=== PATIENT | female | born 1935 | race Caucasian/White ===

== ENCOUNTER 2023-10-08 19:15 | Inpatient (IN) | payer MEDICARE, BC ==
[2023-10-08] MEDS ORDERED: IPRATROPIUM-ALBUTEROL 3 ML NEB INHALATION STA ×2 (19:50→20:53)
--- NOTE | 2023-10-08 20:26 | ED ---
SOB HPI - General Chief Complaint: Shortness of Breath Stated Complaint: SOB Time Seen by Provider: 10/08/23 19:17 Source: patient, EMS, RN notes reviewed, old records reviewed, Caregiver Mode of arrival: EMS Limitations: no limitations - History of Present Illness Initial Comments: This is a 87-year-old female to the emergency department for evaluation of severe shortness of breath, difficulty breathing with recent diagnosis of pneumonia. Patient does have underlying arthritis distress respiratory disease and shortness of breath CHF MD Complaint: shortness of breath, cough, anxiety (known pneumonia) -: days(s) Severity: severe Severity scale (1-10): 10 Quality: aching Consistency: constant Improves With: nothing Known History Of: COPD, congestive heart failure, recurrent pneumonia Context: recent URI, anxiety, recent illness Associated Symptoms: denies other symptoms, cough - Related Data Home Medications Medication Instructions Recorded Confirmed Aspirin EC [Ecotrin Low Dose] 81 mg PO DAILY 10/08/23 10/08/23 Azithromycin [Zithromax Z Pack] See Taper PO DIRECTED 10/08/23 10/08/23 Calcium Carbonate [Tums] 500 mg PO BID 10/08/23 10/08/23 DULoxetine HCL [Cymbalta] 60 mg PO BID 10/08/23 10/08/23 Docusate [Colace] 100 mg PO Q12H 10/08/23 10/08/23 Ergocalciferol (Vitamin D2) 1,250 mcg PO APPIAH 10/08/23 10/08/23 [Drisdol (50,000 Iu)] Ferrous Sulfate [Feosol] 325 mg PO SUMOWEFR@2100 10/08/23 10/08/23 HYDROcodone/APAP 5-325MG [[place] 1 tab PO Q4HR PRN 10/08/23 10/08/23 5-325] INSULIN ASPART (NovoLOG) [NovoLOG See Protocol SQ ACHS 10/08/23 10/08/23 (formulary)] Insulin Detemir [Levemir Flexpen] 20 units SQ DAILY 10/08/23 10/08/23 Lidocaine 5% Patch [Lidoderm] 1 patch TOPICAL DAILY 10/08/23 10/08/23 Losartan [Cozaar] 50 mg PO DAILY 10/08/23 10/08/23 Pantoprazole [Protonix] 40 mg PO DAILY 10/08/23 10/08/23 carvediloL [Coreg] 25 mg PO BID PRN 10/08/23 10/08/23 cefTRIAXone [Rocephin] 1 gm IVPB DAILY 10/08/23 10/08/23 cloNIDine HCL 0.2 mg PO Q8H PRN 10/08/23 10/08/23 hydrALAZINE HCL [Apresoline] 50 mg PO Q8H 10/08/23 10/08/23 polyethylene glycoL 3350 [Miralax] 17 gm PO DAILY 10/08/23 10/08/23 rOPINIRole HCL [Requip] 4 mg PO Q12H 10/08/23 10/08/23 Allergies Allergy/AdvReac Type Severity Reaction Status Date / Time No Known Allergies Allergy Verified 10/08/23 21:45 Review of Systems ROS Statement: Those systems with pertinent positive or pertinent negative responses have been documented in the HPI. ROS Other: All systems not noted in ROS Statement are negative. Past Medical History History of Any Multi-Drug Resistant Organisms: MRSA Smoking Status: Never smoker Past Alcohol Use History: None Reported Past Drug Use History: None Reported General Exam Limitations: no limitations General appearance: alert, anxious, in distress Head exam: Present: atraumatic, normocephalic, normal inspection Eye exam: Present: normal appearance, PERRL, EOMI. Absent: scleral icterus, conjunctival injection, periorbital swelling ENT exam: Present: normal exam, mucous membranes moist Neck exam: Present: normal inspection. Absent: tenderness, meningismus, lymphadenopathy Respiratory exam: Present: respiratory distress, wheezes, accessory muscle use, decreased breath sounds, prolonged expiratory. Absent: rales, rhonchi, stridor Cardiovascular Exam: Present: regular rate, normal rhythm, normal heart sounds. Absent: systolic murmur, diastolic murmur, rubs, gallop, clicks GI/Abdominal exam: Present: soft, normal bowel sounds. Absent: distended, tenderness, guarding, rebound, rigid Extremities exam: Present: normal inspection, full ROM, normal capillary refill. Absent: tenderness, pedal edema, joint swelling, calf tenderness Back exam: Present: normal inspection Neurological exam: Present: alert, oriented X3, CN II-XII intact Psychiatric exam: Present: normal affect, normal mood Skin exam: Present: warm, dry, intact, normal color. Absent: rash Course Vital Signs 10/08/23 10/08/23 10/08/23 19:23 19:27 21:00 Temperature 97.8 F 98.3 F Pulse Rate 95 63 Pulse Rate [ Bilateral Sitting Pulse Oximetery] Respiratory 29 H 28 H 19 Rate Blood Pressure 184/93 210/94 Blood Pressure [Left Arm Sitting] O2 Sat by Pulse 98 100 Oximetry 10/08/23 10/08/23 10/08/23 22:05 22:23 22:43 Temperature 98.2 F Pulse Rate 69 63 67 Pulse Rate [ Bilateral Sitting Pulse Oximetery] Respiratory 22 Rate Blood Pressure 200/101 Blood Pressure [Left Arm Sitting] O2 Sat by Pulse 100 Oximetry 10/08/23 10/08/23 10/08/23 22:46 22:47 22:53 Temperature 98.2 F Pulse Rate 61 67 Pulse Rate [ Bilateral Sitting Pulse Oximetery] Respiratory 22 22 Rate Blood Pressure 204/99 211/97 Blood Pressure 205/104 [Left Arm Sitting] O2 Sat by Pulse 99 100 100 Oximetry 10/08/23 10/09/23 10/09/23 23:00 00:00 00:08 Temperature Pulse Rate 67 Pulse Rate [ 68 67 Bilateral Sitting Pulse Oximetery] Respiratory 20 20 20 Rate Blood Pressure 177/93 Blood Pressure 217/105 [Left Arm Sitting] O2 Sat by Pulse 99 99 Oximetry 10/09/23 10/09/23 10/09/23 02:00 03:00 04:00 Temperature Pulse Rate 63 62 60 Pulse Rate [ Bilateral Sitting Pulse Oximetery] Respiratory 20 20 20 Rate Blood Pressure 139/98 139/98 147/77 Blood Pressure [Left Arm Sitting] O2 Sat by Pulse 99 99 99 Oximetry 10/09/23 10/09/23 10/09/23 05:00 06:00 07:00 Temperature Pulse Rate 64 65 64 Pulse Rate [ Bilateral Sitting Pulse Oximetery] Respiratory 20 20 20 Rate Blood Pressure 158/94 158/92 170/83 Blood Pressure [Left Arm Sitting] O2 Sat by Pulse 99 99 99 Oximetry 10/09/23 10/09/23 10/09/23 07:48 07:52 07:58 Temperature Pulse Rate 87 89 Pulse Rate [ Bilateral Sitting Pulse Oximetery] Respiratory Rate Blood Pressure Blood Pressure [Left Arm Sitting] O2 Sat by Pulse 98 Oximetry 10/09/23 10/09/23 10/09/23 08:47 09:49 12:45 Temperature Pulse Rate 76 78 Pulse Rate [ 67 Bilateral Sitting Pulse Oximetery] Respiratory 18 18 16 Rate Blood Pressure 182/92 149/87 Blood Pressure 121/84 [Left Arm Sitting] O2 Sat by Pulse 99 99 99 Oximetry 10/09/23 19:39 Temperature Pulse Rate Pulse Rate [ 63 Bilateral Sitting Pulse Oximetery] Respiratory 16 Rate Blood Pressure Blood Pressure 151/86 [Left Arm Sitting] O2 Sat by Pulse 99 Oximetry - Reevaluation(s) Reevaluation #1: 10/08/23 20:58 Medical record is reviewed Reevaluation #2: 10/08/23 20:59 Patient symptoms unchanged Reevaluation #3: 10/08/23 20:59 patient informed results and questions answered Reevaluation #4: 10/08/23 20:59 Was pt. sent in by a medical professional or institution (, PA, DIRECTOR OF CLOUD SERVICES, urgent care, hospital, or senior living...) When possible be specific @ -no Did you speak to anyone other than the patient for history (EMS, parent, family, police, friend...)? What history was obtained from this source @ -no Did you review nursing and triage notes (agree or disagree)? Why? @ -agree Are old charts reviewed (outside hosp., previous admission, EMS record, old EKG, old radiological studies, urgent care reports/EKG's, senior living records)? Report findings @ -yes Differential Diagnosis (chest pain, altered mental status, abdominal pain women, abdominal pain men, vaginal bleeding, weakness, fever, dyspnea, syncope, headache, dizziness, GI bleed, back pain, seizure, CVA, palpatations, mental health, musculoskeletal)? @ -prior EKG interpreted by me (3pts min.). @ -yes X-rays interpreted by me (1pt min.). @ -yes CHF and pneumonia CT interpreted by me (1pt min.). @ -no U/S interpreted by me (1pt. min.). @ -no What testing was considered but not performed or refused? (CT, X-rays, U/S, labs)? Why? @ -none What meds were considered but not given or refused? Why? @ -none Did you discuss the management of the patient with other professionals (professionals i.e. , PA, DIRECTOR OF CLOUD SERVICES, lab, RT, psych nurse, criminal justice social worker, nurse behavioral health care, teacher, chief human resources officer, window caser)? Give summary @ -no Was smoking cessation discussed for >3mins.? @ -no Was critical care preformed (if so, how long)? @ -no Were there social determinants of health that impacted care today? How? (Homelessness, low income, unemployed, alcoholism, drug addiction, transportation, low edu. Level, literacy, decrease access to med. care, longterm, rehab)? @ -none Was there de-escalation of care discussed even if they declined (Discuss DNR or withdrawal of care, Hospice)? DNR status @ -no What co-morbidities impacted this encounter? (DM, HTN, Smoking, COPD, CAD, Cancer, CVA, ARF, Chemo, Hep., AIDS, mental health diagnosis, sleep apnea, morbi d obesity)? @ -none Was patient admitted / discharged? Hospital course, mention meds given and rout e, prescriptions, significant lab abnormalities, going to OR and other pertinent info. @ - 87 female to the emergency department for evaluation today. Patient will be admitted for pneumonia CHF COPD hypoxia and respiratory failure Admitted Undiagnosed new problem with uncertain prognosis? @ -no Drug Therapy requiring intensive monitoring for toxicity (Heparin, Nitro, Insulin, Cardizem)? @ -no Were any procedures done? @ -no Diagnosis/symptom? @ -Hypoxia CHF and respiratory failure with pneumonia Acute, or Chronic, or Acute on Chronic? @ -Acute Uncomplicated (without systemic symptoms) or Complicated (systemic symptoms)? @ -Complicated Side effects of treatment? @ -no Exacerbation, Progression, or Severe Exacerbation? @ -exacerbation Poses a threat to life or bodily function? How? (Chest pain, [place], [place], pneumonia, PE, COPD, DKA, ARF, appy, cholecystitis, CVA, Diverticulitis, Homicidal, Suicidal, threat to staff... and all critical care pts) @ -yes extremes of age Reevaluation #5: 10/08/23 20:59 Differential Dyspnea: Coronary syndrome, arrhythmia, tamponade, asthma, COPD, pulmonary embolism, pneumonia, pneumothorax, pulmonary effusion, anaphylaxis, diabetic ketoacidosis, flailed chest, pulmonary contusion, diaphragmatic rupture, anemia, neuromuscular, this is not meant to be an all-inclusive list. - Consultations Consultation #1: Spoke with [facility] were agrees to admit this patient Medical Decision Making - Medical Decision Making 87 female DF for evaluation today. Patient will be admitted for pneumonia CHF COPD hypoxia and respiratory failure - Lab Data Result diagrams: 10/17/23 06:31 10/17/23 06:31 Lab Results 10/08/23 10/08/23 10/08/23 Range/Units 19:55 19:55 19:55 WBC 6.3 (3.8-10.6) k/uL RBC 3.98 (3.80-5.40) m/uL Hgb 12.5 (11.4-16.0) gm/dL Hct 40.7 (34.0-46.0) % MCV 102.4 H (80.0-100.0) fL MCH 31.5 (25.0-35.0) pg MCHC 30.7 L (31.0-37.0) g/dL RDW 15.1 (11.5-15.5) % Plt Count 143 L (150-450) k/uL MPV 9.2 Neutrophils % 79 % Lymphocytes % 10 % Monocytes % 6 % Eosinophils % 4 % Basophils % 1 % Neutrophils # 4.9 (1.3-7.7) k/uL Lymphocytes # 0.6 L (1.0-4.8) k/uL Monocytes # 0.3 (0-1.0) k/uL Eosinophils # 0.3 (0-0.7) k/uL Basophils # 0.0 (0-0.2) k/uL Hypochromasia Slight Macrocytosis Slight PT 11.0 (10.0-12.5) sec INR 1.0 (<1.2) APTT 25.2 (22.0-30.0) sec Sodium 142 (137-145) mmol/L Potassium 4.0 (3.5-5.1) mmol/L Chloride 106 (98-107) mmol/L Carbon Dioxide 28 (22-30) mmol/L Anion Gap 8 mmol/L BUN 34 H (7-17) mg/dL Creatinine 0.87 (0.52-1.04) mg/dL Est GFR (CKD-EPI)AfAm 69 (>60 ml/min/1.73 sqM) Est GFR (CKD-EPI)NonAf 60 (>60 ml/min/1.73 sqM) Glucose 98 (74-99) mg/dL Plasma Lactic Acid Luis M (0.7-2.0) mmol/L Calcium 9.0 (8.4-10.2) mg/dL Total Bilirubin 0.5 (0.2-1.3) mg/dL AST 52 H (14-36) U/L ALT 71 H (4-34) U/L Alkaline Phosphatase 209 H (38-126) U/L Troponin I (0.000-0.034) ng/mL Total Protein 6.5 (6.3-8.2) g/dL Albumin 3.6 (3.5-5.0) g/dL 10/08/23 10/08/23 Range/Units 19:55 19:55 WBC (3.8-10.6) k/uL RBC (3.80-5.40) m/uL Hgb (11.4-16.0) gm/dL Hct (34.0-46.0) % MCV (80.0-100.0) fL MCH (25.0-35.0) pg MCHC (31.0-37.0) g/dL RDW (11.5-15.5) % Plt Count (150-450) k/uL MPV Neutrophils % % Lymphocytes % % Monocytes % % Eosinophils % % Basophils % % Neutrophils # (1.3-7.7) k/uL Lymphocytes # (1.0-4.8) k/uL Monocytes # (0-1.0) k/uL Eosinophils # (0-0.7) k/uL Basophils # (0-0.2) k/uL Hypochromasia Macrocytosis PT (10.0-12.5) sec INR (<1.2) APTT (22.0-30.0) sec Sodium (137-145) mmol/L Potassium (3.5-5.1) mmol/L Chloride (98-107) mmol/L Carbon Dioxide (22-30) mmol/L Anion Gap mmol/L BUN (7-17) mg/dL Creatinine (0.52-1.04) mg/dL Est GFR (CKD-EPI)AfAm (>60 ml/min/1.73 sqM) Est GFR (CKD-EPI)NonAf (>60 ml/min/1.73 sqM) Glucose (74-99) mg/dL Plasma Lactic Acid Luis M 0.9 (0.7-2.0) mmol/L Calcium (8.4-10.2) mg/dL Total Bilirubin (0.2-1.3) mg/dL AST (14-36) U/L ALT (4-34) U/L Alkaline Phosphatase (38-126) U/L Troponin I <0.012 (0.000-0.034) ng/mL Total Protein (6.3-8.2) g/dL Albumin (3.5-5.0) g/dL - EKG Data -: EKG Interpreted by Me (EKG is sinus 64 WI 158 QRS 105 QTc 408) - Radiology Data Radiology results: report reviewed (Chest x-rays positive for pneumonia and CHF), image reviewed Critical Care Time Critical Care Time: Yes Total Critical Care Time: 31 Disposition Clinical Impression: Acute exacerbation of chronic obstructive pulmonary disease, Acute pulmonary edema, Congestive heart failure, Hypoxia Disposition: ADMITTED IP TO THIS HOSP Condition: Fair Is patient prescribed a controlled substance at d/c from ED?: No
[2023-10-08 20:35] LABS: ALT 71 U/L (4-34); AST 52 U/L (14-36); African American GFR (CKD) 69 (>60 ml/min/1.73 sqM); Albumin 3.6 g/dL (3.5-5.0); Alkaline Phosphatase 209 U/L (38-126); Anion Gap 8 mmol/L; Blood Urea Nitrogen 34 mg/dL (7-17); Carbon Dioxide 28 mmol/L (22-30); Chloride 106 mmol/L (98-107); Glucose 98 mg/dL (74-99); Non-African American GFR(CKD) 60 (>60 ml/min/1.73 sqM); Sodium 142 mmol/L (137-145); Total Bilirubin 0.5 mg/dL (0.2-1.3); Total Protein 6.5 g/dL (6.3-8.2)
[2023-10-08 20:39] LABS: Partial Thromboplastin Time 25.2 sec (22.0-30.0)
[2023-10-08 20:45] LABS: Basophils % (A) 1 %; Eosinophils # (A) 0.3 k/uL (0-0.7); Eosinophils % (A) 4 %; HCT 40.7 % (34.0-46.0); HGB 12.5 gm/dL (11.4-16.0); Hypochromasia Slight; Lymphocytes # (A) 0.6 k/uL (1.0-4.8); Lymphocytes % (A) 10 %; MCH 31.5 pg (25.0-35.0); MCHC 30.7 g/dL (31.0-37.0); MCV 102.4 fL (80.0-100.0); Macrocytosis Slight; Mean Platelet Volume 9.2; Monocytes # (A) 0.3 k/uL (0-1.0); Monocytes % (A) 6 %; Neutrophils # (A) 4.9 k/uL (1.3-7.7); Neutrophils % (A) 79 %; Platelet Count 143 k/uL (150-450); RBC 3.98 m/uL (3.80-5.40); RDW 15.1 % (11.5-15.5); WBC 6.3 k/uL (3.8-10.6)
[2023-10-08] MEDS ORDERED: PNEUMONIA PROTOCOL UTILIZED 1 EACH MISC PO PRN (20:53)
[2023-10-08] MEDS ORDERED: AZITHROMYCIN 500 MG in SODIUM CHLORIDE 0.9% 250 ML IVPB STA (20:53)
--- NOTE | 2023-10-08 21:49 | XR ---
EXAMINATION TYPE: XR chest 2V DATE OF EXAM: 10/08/2023 8:43 PM CLINICAL INDICATION:Female, 87 years old with history of difficulty breathing; PHH COMPARISON: None TECHNIQUE: XR chest 2V. Frontal and lateral views of the chest.. FINDINGS: Lines/Tubes/Devices: No indwelling lines are seen. Heart/mediastinum: Heart appears moderately enlarged. Tortuous aorta with atherosclerotic calcificat ion. Pulmonary vascularity: Pulmonary vascular congestion. Increased interstitial markings can be seen wit h edema or pneumonitis. An element of chronic change is possible. Lungs/Pleura: Moderate blunting of the costophrenic angles greatest posteriorly. Mild bibasilar atele ctasis. Otherwise no consolidation or pneumothorax. Musculoskeletal: No acute osseous abnormality demonstrated in the limits of the exam. Mild degenerat jazmyn changes of the spine with slight exaggerated kyphosis. Other findings: None. IMPRESSION: Cardiomegaly, pulmonary vascular congestion and bilateral pleural effusions. Correlate clinically for congestive heart failure.
[2023-10-08] MEDS: SODIUM CHLORIDE 0.9% 1,000 ML IV SCH (22:34)
[2023-10-08] MEDS ORDERED: hydrALAZINE HCL 20 MG/ML 1 ML VIAL IVP PRN (23:28)
[2023-10-08] MEDS: hydrALAZINE HCL 50 MG TAB PO SCH (23:39)
[2023-10-08] MEDS: LOSARTAN 50 MG TAB PO SCH (23:39)
[2023-10-09] MEDS: ALBUTEROL NEBULIZED 2.5 MG/3 ML INHALATION PRN (07:48)
[2023-10-09] MEDS: SODIUM CHLORIDE 0.9% 1,000 ML IV SCH (08:43)
[2023-10-09] MEDS: carvediloL 12.5 MG TAB PO SCH ×2 (08:45→18:30)
[2023-10-09] MEDS: LOSARTAN 50 MG TAB PO SCH (08:46)
[2023-10-09] MEDS: hydrALAZINE HCL 50 MG TAB PO SCH ×4 (08:46→23:02)
[2023-10-09] MEDS ORDERED: AZITHROMYCIN 500 MG TAB PO SCH (09:00)
[2023-10-09] MEDS ORDERED: polyethylene glycoL 3350 17 GM POWD.PACK PO PRN (09:54)
--- NOTE | 2023-10-09 10:04 | P.HPIM ---
History of Present Illness 87-year-old female came in with comments of shortness of breath or cough with clear sputum production denied any fever chills denied any body aches. Patient chest x-ray is consistent with congestive heart failure patient is being treated for pneumonia although there is no evidence of pneumonia at this time. We will obtain a BNP pro calcitonin level. Patient denied any history of congestive heart failure in the past. IV fluids are being discontinue patient was started on IV Lasix. Patient denied any clear history of orthopnea or paroxysmal nocturnal dyspnea. One set of troponin is negative. There is no echo cardiac available in our system. We'll obtain medical records from her PCPs office. REVIEW OF SYSTEMS: CONSTITUTIONAL: No fever, no malaise, no fatigue. HEENT: No recent visual problems or hearing problems. Denied any sore throat. CARDIOVASCULAR: No chest pain,no palpitations, no syncope. PULMONARY:no hemoptysis. GASTROINTESTINAL: No diarrhea, no nausea, no vomiting, no abdominal pain. NEUROLOGICAL: No headaches, no weakness, no numbness. HEMATOLOGICAL: Denies any bleeding or petechiae. GENITOURINARY: Denies any burning micturition, frequency, or urgency. MUSCULOSKELETAL/RHEUMATOLOGICAL: Denies any joint pain, swelling, or any muscle pain. ENDOCRINE: Denies any polyuria or polydipsia. The rest of the 14-point review of systems is negative. PHYSICAL EXAMINATION: GENERAL: The patient is alert and oriented x3, not in any acute distress. Well developed, well nourished. HEENT: Pupils are round and equally reacting to light. EOMI. No scleral icterus. No conjunctival pallor. Normocephalic, atraumatic. No pharyngeal erythema. No thyromegaly. CARDIOVASCULAR: S1 and S2 present. No murmurs, rubs, or gallops. Mildly elevated JVD PULMONARY: Chest is clear to auscultation, no wheezing or crackles. ABDOMEN: Soft, nontender, nondistended, normoactive bowel sounds. No palpable organomegaly. MUSCULOSKELETAL: No joint swelling or deformity. EXTREMITIES: No cyanosis, clubbing, mild bilateral pitting pedal edema NEUROLOGICAL: Gross neurological examination did not reveal any focal deficits. SKIN: No rashes. Assessment and plan -Shortness of breath acute hypoxic respiratory failure requiring 3 L of oxygen at this time secondary to congestive heart failure probably diastolic d ysfunction with acute exacerbation we will obtain echocardiogram patient will be started on IV Lasix with input and output monitoring. Cardiology will be consulted echocardiogram will be obtained. -Mild transaminitis secondary to hepatic condition expected to improve with the Lasix -Uncontrolled elevated blood pressure hypertensive urgency, improved blood pressure with the resuming her home medications although clonidine is being held instead Coreg was started. Hydralazine will be continued losartan will be continued -Type 2 diabetes mellitus patient will be started on her home regimen along with sliding scale -Restless leg syndrome -Depression DVT prophylaxis: Lovenox 30 mg subcutaneous Past Medical History History of Any Multi-Drug Resistant Organisms: MRSA Smoking Status: Never smoker Past Alcohol Use History: None Reported Past Drug Use History: None Reported Medications and Allergies Home Medications Medication Instructions Recorded Confirmed Type Aspirin EC [Ecotrin Low Dose] 81 mg PO DAILY 10/08/23 10/08/23 History Azithromycin [Zithromax Z Pack] See Taper PO DIRECTED 10/08/23 10/08/23 History Calcium Carbonate [Tums] 500 mg PO BID 10/08/23 10/08/23 History DULoxetine HCL [Cymbalta] 60 mg PO BID 10/08/23 10/08/23 History Docusate [Colace] 100 mg PO Q12H 10/08/23 10/08/23 History Ergocalciferol (Vitamin D2) 1,250 mcg PO APPIAH 10/08/23 10/08/23 History [Drisdol (50,000 Iu)] Ferrous Sulfate [Feosol] 325 mg PO SUMOWEFR@2100 10/08/23 10/08/23 History HYDROcodone/APAP 5-325MG [[place] 1 tab PO Q4HR PRN 10/08/23 10/08/23 History 5-325] INSULIN ASPART (NovoLOG) [[place]ovoLOG See Protocol SQ ACHS 10/08/23 10/08/23 History (formulary)] Insulin Detemir [Levemir Flexpen] 20 units SQ DAILY 10/08/23 10/08/23 History Lidocaine 5% Patch [Lidoderm] 1 patch TOPICAL DAILY 10/08/23 10/08/23 History Losartan [Cozaar] 50 mg PO DAILY 10/08/23 10/08/23 History Pantoprazole [Protonix] 40 mg PO DAILY 10/08/23 10/08/23 History carvediloL [Coreg] 25 mg PO BID PRN 10/08/23 10/08/23 History cefTRIAXone [Rocephin] 1 gm IVPB DAILY 10/08/23 10/08/23 History cloNIDine HCL 0.2 mg PO Q8H PRN 10/08/23 10/08/23 History hydrALAZINE HCL [Apresoline] 50 mg PO Q8H 10/08/23 10/08/23 History polyethylene glycoL 3350 [Miralax] 17 gm PO DAILY 10/08/23 10/08/23 History rOPINIRole HCL [Requip] 4 mg PO Q12H 10/08/23 10/08/23 History Allergies Allergy/AdvReac Type Severity Reaction Status Date / Time No Known Allergies Allergy Verified 10/08/23 21:45 Physical Exam Vitals: Vital Signs Temp Pulse Pulse Resp BP BP Pulse Ox 10/09/23 09:49 78 18 149/87 99 10/09/23 08:47 76 18 182/92 99 10/09/23 07:58 89 10/09/23 07:52 98 10/09/23 07:48 87 10/09/23 07:00 64 20 170/83 99 10/09/23 06:00 65 20 158/92 99 10/09/23 05:00 64 20 158/94 99 10/09/23 04:00 60 20 147/77 99 10/09/23 03:00 62 20 139/98 99 10/09/23 02:00 63 20 139/98 99 10/09/23 00:08 67 20 177/93 99 10/09/23 00:00 67 20 10/08/23 23:00 68 20 217/105 99 10/08/23 22:53 67 211/97 100 10/08/23 22:47 98.2 F 22 205/104 100 10/08/23 22:46 61 22 204/99 99 10/08/23 22:43 98.2 F 67 22 200/101 100 10/08/23 22:23 63 10/08/23 22:05 69 10/08/23 21:00 98.3 F 63 19 210/94 100 10/08/23 19:27 97.8 F 95 28 H 184/93 98 10/08/23 19:23 29 H Intake and Output 10/08/23 10/09/23 10/09/23 22:59 06:59 14:59 Other: Weight 63.503 kg Results CBC & Chem 7: 10/08/23 19:55 10/08/23 19:55 Labs: Abnormal Lab Results - Last 24 Hours (Table) 10/08/23 10/08/23 Range/Units 19:55 19:55 MCV 102.4 H (80.0-100.0) fL MCHC 30.7 L (31.0-37.0) g/dL Plt Count 143 L (150-450) k/uL Lymphocytes # 0.6 L (1.0-4.8) k/uL BUN 34 H (7-17) mg/dL AST 52 H (14-36) U/L ALT 71 H (4-34) U/L Alkaline Phosphatase 209 H (38-126) U/L
[2023-10-09 10:38] LABS: Glucose,Whole Blood 161 mg/dL (70-110)
[2023-10-09] MEDS: INSULIN DETEMIR (LEVEMIR) 100 UNIT/ML SYR SQ SCH (10:38)
[2023-10-09] MEDS: DOCUSATE 100 MG CAP PO SCH ×2 (10:40→21:00)
--- NOTE | 2023-10-09 12:17 | P.CRDCN ---
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 Patient has a past medical history of hypertension, hyperlipidemia, diabetes mellitus insulin requiring. Patient currently resides at [facility] after she fell and broke her right leg in July. Patient presented to the hospital due to shortness of breath that became significantly worse last evening. She states she is feeling a little bit better now. Patient has been started on IV Lasix 40 mg every 12 hours. She denies any previous history of COPD. She does states she's had a cough with sputum production. It appears patient has been on a Z-Reginald prior to coming to the hospital. Patient is seen today in the ER waiting for a bed on the [facility] floor. EKG sinus rhythm, left axis deviation Chest x-ray: Cardiomegaly, pulmonary vascular congestion and bilateral pleural effusions. WBC 6.3, hemoglobin 12.5, platelet count 143. INR 1. Electrolytes normal. BUN 34 creatinine 0.87. AST 52, ALT 71, alkaline phosphatase 209. Troponin negative 2. ProBNP 1980. Lactic acid 0.9. Home cardiac medications: Aspirin 81 mg daily, Coreg 25 mg twice daily with parameters, hydralazine 50 mg every 8 hours, losartan 50 mg daily. Review Of Systems: At the time of my exam: CONSTITUTIONAL: Denies fever or chills. CARDIOVASCULAR: Denies chest pain, + shortness of breath, no orthopnea, PND or palpitations. + LE edema. RESPIRATORY: + cough with sputum production. GASTROINTESTINAL: Denies abdominal pain, diarrhea, constipation, nausea or vomiting. MUSCULOSKELETAL: Denies myalgias. NEUROLOGIC: Denies numbness, tingling or weakness. ENDOCRINE: Denies fatigue, weight change, polydipsia or polyurina. GENITOURINARY: Denies burning, hematuria or urgency with micturation. HEMATOLOGIC: Denies history of anemia or bleeding. Physical examination: Gen: This is an 87 year old female, appears to be in no acute distress. VS: reviewed HEENT: Head is atraumatic, normocephalic. Pupils equal, round. Sclerae is anicteric. NECK: Supple. No JVD. LUNGS: Mild crackles to bilat bases. No intercostal retractions. HEART: Regular rate and rhythm. No murmur. ABDOMEN: Soft No tenderness. EXTREMITIES: 1+ pedal edema. No calf tenderness. NEUROLOGICAL: Patient is awake, alert and oriented x3. Assessment: New onset CHF Cough with sputum production Hypertension Hyperlipidemia Diabetes mellitus Plan: Continue IV Lasix 40 mg every 12 hours Monitor I&O, daily weights, electrolytes and renal function Resume patient's home cardiac medications Obtain 2-D echocardiogram and Doppler study to assess cardiac structure and function Further recommendations to follow based upon clinical course Thank you kindly for this consultation. Nurse practitioner note has been reviewed, I agree with documented findings and plan of care. Patient was seen and examined. Past Medical History History of Any Multi-Drug Resistant Organisms: MRSA Smoking Status: Never smoker Past Alcohol Use History: None Reported Past Drug Use History: None Reported Medications and Allergies Home Medications Medication Instructions Recorded Confirmed Type Aspirin EC [Ecotrin Low Dose] 81 mg PO DAILY 10/08/23 10/08/23 History Azithromycin [Zithromax Z Pack] See Taper PO DIRECTED 10/08/23 10/08/23 History Calcium Carbonate [Tums] 500 mg PO BID 10/08/23 10/08/23 History DULoxetine HCL [Cymbalta] 60 mg PO BID 10/08/23 10/08/23 History Docusate [Colace] 100 mg PO Q12H 10/08/23 10/08/23 History Ergocalciferol (Vitamin D2) 1,250 mcg PO APPIAH 10/08/23 10/08/23 History [Drisdol (50,000 Iu)] Ferrous Sulfate [Feosol] 325 mg PO SUMOWEFR@2100 10/08/23 10/08/23 History HYDROcodone/APAP 5-325MG [Mchenry 1 tab PO Q4HR PRN 10/08/23 10/08/23 History 5-325] INSULIN ASPART (NovoLOG) [NovoLOG See Protocol SQ ACHS 10/08/23 10/08/23 History (formulary)] Insulin Detemir [Levemir Flexpen] 20 units SQ DAILY 10/08/23 10/08/23 History Lidocaine 5% Patch [Lidoderm] 1 patch TOPICAL DAILY 10/08/23 10/08/23 History Losartan [Cozaar] 50 mg PO DAILY 10/08/23 10/08/23 History Pantoprazole [Protonix] 40 mg PO DAILY 10/08/23 10/08/23 History carvediloL [Coreg] 25 mg PO BID PRN 10/08/23 10/08/23 History cefTRIAXone [Rocephin] 1 gm IVPB DAILY 10/08/23 10/08/23 History cloNIDine HCL 0.2 mg PO Q8H PRN 10/08/23 10/08/23 History hydrALAZINE HCL [Apresoline] 50 mg PO Q8H 10/08/23 10/08/23 History polyethylene glycoL 3350 [Miralax] 17 gm PO DAILY 10/08/23 10/08/23 History rOPINIRole HCL [Requip] 4 mg PO Q12H 10/08/23 10/08/23 History Allergies Allergy/AdvReac Type Severity Reaction Status Date / Time No Known Allergies Allergy Verified 10/08/23 21:45 Physical Exam Vitals: Vital Signs Temp Pulse Pulse Resp BP BP Pulse Ox 10/09/23 09:49 78 18 149/87 99 10/09/23 08:47 76 18 182/92 99 10/09/23 07:58 89 10/09/23 07:52 98 10/09/23 07:48 87 10/09/23 07:00 64 20 170/83 99 10/09/23 06:00 65 20 158/92 99 10/09/23 05:00 64 20 158/94 99 10/09/23 04:00 60 20 147/77 99 10/09/23 03:00 62 20 139/98 99 10/09/23 02:00 63 20 139/98 99 10/09/23 00:08 67 20 177/93 99 10/09/23 00:00 67 20 10/08/23 23:00 68 20 217/105 99 10/08/23 22:53 67 211/97 100 10/08/23 22:47 98.2 F 22 205/104 100 10/08/23 22:46 61 22 204/99 99 10/08/23 22:43 98.2 F 67 22 200/101 100 10/08/23 22:23 63 10/08/23 22:05 69 10/08/23 21:00 98.3 F 63 19 210/94 100 10/08/23 19:27 97.8 F 95 28 H 184/93 98 10/08/23 19:23 29 H Intake and Output 10/08/23 10/09/23 10/09/23 22:59 06:59 14:59 Other: Weight 63.503 kg Results 10/08/23 19:55 10/08/23 19:55 Cardiac Enzymes 10/08/23 10/08/23 Range/Units 19:55 19:55 AST 52 H (14-36) U/L Troponin I <0.012 (0.000-0.034) ng/mL Coagulation 10/08/23 Range/Units 19:55 PT 11.0 (10.0-12.5) sec APTT 25.2 (22.0-30.0) sec CBC 10/08/23 Range/Units 19:55 WBC 6.3 (3.8-10.6) k/uL RBC 3.98 (3.80-5.40) m/uL Hgb 12.5 (11.4-16.0) gm/dL Hct 40.7 (34.0-46.0) % Plt Count 143 L (150-450) k/uL Comprehensive Metabolic Panel 10/08/23 Range/Units 19:55 Sodium 142 (137-145) mmol/L Potassium 4.0 (3.5-5.1) mmol/L Chloride 106 (98-107) mmol/L Carbon Dioxide 28 (22-30) mmol/L BUN 34 H (7-17) mg/dL Creatinine 0.87 (0.52-1.04) mg/dL Glucose 98 (74-99) mg/dL Calcium 9.0 (8.4-10.2) mg/dL AST 52 H (14-36) U/L ALT 71 H (4-34) U/L Alkaline Phosphatase 209 H (38-126) U/L Total Protein 6.5 (6.3-8.2) g/dL Albumin 3.6 (3.5-5.0) g/dL Current Medications Generic Name Dose Route Start Last Admin Trade Name Freq PRN Reason Stop Dose Admin Albuterol Sulfate 2.5 mg 10/08/23 20:53 10/09/23 07:48 Albuterol Nebulized 2.5 Mg/3 Ml INHALATION 2.5 mg RT-Q4H PRN Administration Shortness Of Breath Or Wheezin Albuterol/Ipratropium 3 ml 10/09/23 09:57 Ipratropium-Albuterol 3 Ml Neb INHALATION RT-QID PRN Shortness Of Breath Or Wheezing Aspirin 81 mg 10/10/23 09:00 Aspirin 81 Mg PO DAILY [facility] Carvedilol 25 mg 10/09/23 07:30 10/09/23 08:45 Carvedilol 12.5 Mg Tab PO 25 mg BID-W/MEALS [facility] Administration Docusate Sodium 100 mg 10/09/23 10:30 10/09/23 10:40 Docusate 100 Mg Cap PO Not Given Q12HR [facility] Duloxetine HCl 60 mg 10/09/23 21:00 Duloxetine Hcl 60 Mg Capsule.Dr PO BID [facility] Enoxaparin Sodium 30 mg 10/10/23 09:00 Enoxaparin 30 Mg/0.3 Ml Syringe SQ DAILY [facility] Furosemide 40 mg 10/09/23 21:00 Furosemide 10 Mg/Ml 4 Ml Vial IV Q12HR [facility] Hydralazine HCl 50 mg 10/09/23 10:30 10/09/23 10:00 Hydralazine Hcl 50 Mg Tab PO Not Given Q8HR [facility] Insulin Aspart 0 unit 10/09/23 12:30 Insulin Aspart (Novolog) 100 Unit/Ml Vial SQ ACHS [facility] Protocol Insulin Detemir 20 unit 10/09/23 10:30 10/09/23 10:38 Insulin Detemir (Levemir) 100 Unit/Ml Syr SQ 20 unit DAILY@0700 [facility] Administration Lidocaine 1 patch 10/10/23 09:00 Lidocaine 4% Patch TOPICAL DAILY [facility] Losartan Potassium 50 mg 10/08/23 23:30 10/09/23 08:46 Losartan 50 Mg Tab PO 50 mg DAILY [facility] Administration Miscellaneous Information 1 each 10/08/23 20:53 Pneumonia Protocol Utilized 1 Each Misc PO ONCE PRN Per Protocol Polyethylene Glycol 17 gm 10/09/23 09:54 Polyethylene Glycol 3350 17 Gm Powd.Pack PO DAILY PRN Constipation Intake and Output 10/08/23 10/09/23 10/09/23 22:59 06:59 14:59 Other: Weight 63.503 kg 10/08/23 19:55 10/08/23 19:55
[2023-10-09] MEDS: FUROSEMIDE 10 MG/ML 4 ML VIAL IV SCH ×2 (12:51→21:00)
[2023-10-09 14:07] LABS: Glucose,Whole Blood 145 mg/dL (70-110)
[2023-10-09] MEDS: INSULIN ASPART (NovoLOG) 100 UNIT/ML VIAL SQ SCH ×3 (14:07→20:47)
--- NOTE | 2023-10-09 17:00 | CA ---
Transthoracic Echo Report Name: Sherry Bernabe Age: 87 Gender: F : 1935 Exam Date: 10/09/2023 14:33 Exam Location: [facility] Ht (in): 62 Wt (lb): 140 Ordering Physician: Jami Durant MD Attending/Referring Phys: Event Sales Representative Camelia Delgado RDCS Procedure CPT: Indications: chf Cardiac Hx: Technical Quality: Fair Contrast 1: Total Dose (mL): Contrast 2: Total Dose (mL): MEASUREMENTS (Male / Female) Normal Values 2D ECHO LV Diastolic Diameter PLAX 3.9 cm 4.2 - 5.9 / 3.9 - 5.3 cm LV Systolic Diameter PLAX 2.2 cm IVS Diastolic Thickness 1.4 cm 0.6 - 1.0 / 0.6 - 0.9 cm LVPW Diastolic Thickness 1.4 cm 0.6 - 1.0 / 0.6 - 0.9 cm LV Relative Wall Thickness 0.7 RV Internal Dim ED PLAX 3.7 cm LA Volume 83.7 cm??? 18 - 58 / 22 - 52 cm??? LA Volume Index 49.8 cm???/m??? 16 - 28 cm???/m??? M-MODE Aortic Root Diameter MM 3.1 cm LA Systolic Diameter MM 5.0 cm LA Ao Ratio MM 1.6 AV Cusp Separation MM 1.5 cm DOPPLER AV Peak Velocity 181.5 cm/s AV Peak Gradient 13.2 mmHg AV Mean Velocity 122.5 cm/s AV Mean Gradient 6.8 mmHg AV Velocity Time Integral 40.1 cm LVOT Peak Velocity 98.3 cm/s LVOT Peak Gradient 3.9 mmHg LVOT Velocity Time Integral 28.4 cm MV Area PHT 4.0 cm??? Mitral E Point Velocity 153.9 cm/s Mitral A Point Velocity 97.0 cm/s Mitral E to A Ratio 1.6 MV Deceleration Time 187.4 ms MV E' Velocity 5.9 cm/s Mitral E to MV E' Ratio 26.0 TR Peak Velocity 373.9 cm/s TR Peak Gradient 55.9 mmHg Right Ventricular Systolic Press 58.9 mmHg FINDINGS Left Ventricle Moderately increased left ventricular wall thickness. Left ventricular cavity size normal. Normal left ventricular systolic function with no obvious regional wall motion abnormalities. Left ventricular ejection fraction is estimated at 55-60 %. Right Ventricle Mild right ventricular dilatation. Severe pulmonary hypertension. Right ventricular systolic pressure estimated at 60 mm hg. Right Atrium Mild right atrial dilatation. Left Atrium Severely increased left atrial volume. Mildly increased left atrial area. Mitral Valve Structurally normal mitral valve. Mild thickening/calcification of the anterior mitral valve leaflet. Severe mitral annular calcification. [id number] mitral regurgitation. Aortic Valve Trileaflet aortic valve. Thickened aortic valve without stenosis. No aortic regurgitation. Tricuspid Valve Structurally normal tricuspid valve. [id number] tricuspid regurgitation. Pulmonic Valve Structurally normal pulmonic valve. Trace pulmonic regurgitation. Pericardium No pericardial effusion. Aorta Normal size aortic root and proximal ascending aorta. CONCLUSIONS Normal LV function Severe pulmonary hypertension Moderate to severe mitral regurgitation Moderate to severe tricuspid regurgitation Previewed by: Dr. Reji Gruber MD (Electronically Signed) Final Date: 09 October 2023 16:59
[2023-10-09 17:06] LABS: Glucose,Whole Blood 266 mg/dL (70-110)
[2023-10-09] MEDS: IPRATROPIUM-ALBUTEROL 3 ML NEB INHALATION PRN (20:16)
[2023-10-09 20:27] LABS: Glucose,Whole Blood 127 mg/dL (70-110)
[2023-10-09] MEDS: rOPINIRole HCL 4 MG TABLET PO SCH (21:00)
[2023-10-09] MEDS ORDERED: FUROSEMIDE 10 MG/ML 4 ML VIAL IV SCH (21:00)
[2023-10-09] MEDS: DULoxetine HCL 60 MG CAPSULE.DR PO SCH (21:00)
[2023-10-10 06:30] LABS: Glucose,Whole Blood 110 mg/dL (70-110)
[2023-10-10] MEDS: INSULIN ASPART (NovoLOG) 100 UNIT/ML VIAL SQ SCH ×4 (06:31→20:18)
[2023-10-10] MEDS: FUROSEMIDE 10 MG/ML 4 ML VIAL IV SCH ×2 (07:36→20:18)
[2023-10-10] MEDS: ENOXAPARIN 30 MG/0.3 ML SYRINGE SQ SCH (07:36)
[2023-10-10] MEDS: carvediloL 12.5 MG TAB PO SCH ×2 (07:37→16:51)
[2023-10-10] MEDS: DOCUSATE 100 MG CAP PO SCH ×2 (07:37→20:18)
[2023-10-10] MEDS: hydrALAZINE HCL 50 MG TAB PO SCH ×3 (07:37→23:07)
[2023-10-10] MEDS: LOSARTAN 50 MG TAB PO SCH (07:37)
[2023-10-10] MEDS: ASPIRIN 81 MG PO SCH (07:37)
[2023-10-10] MEDS: DULoxetine HCL 60 MG CAPSULE.DR PO SCH ×2 (07:37→20:18)
[2023-10-10] MEDS: INSULIN DETEMIR (LEVEMIR) 100 UNIT/ML SYR SQ SCH (07:38)
[2023-10-10] MEDS: rOPINIRole HCL 4 MG TABLET PO SCH ×2 (07:38→20:18)
[2023-10-10] MEDS: LIDOCAINE 4% PATCH TOPICAL SCH (07:38)
[2023-10-10 10:24] LABS: BUN/Creat Ratio 30.91 Ratio (12.00-20.00); Carbon Dioxide 25.2 mmol/L (21.6-31.8); Chloride 108 mmol/L (96-109); Glucose 113 mg/dL (70-110); Magnesium 1.8 mg/dL (1.5-2.4); Potassium 3.7 mmol/L (3.5-5.5); Sodium 146 mmol/L (135-145)
[2023-10-10 10:25] LABS: Calcium 9.2 mg/dL (8.7-10.3)
[2023-10-10] MEDS ORDERED: HYDROcodone/APAP 5-325MG 1 EACH TAB PO PRN (11:19)
[2023-10-10] MEDS ORDERED: NON FORMULARY DRUG (Ropinirole Hcl [Requip] 2 MG Tablet) PO SCH (11:30)
[2023-10-10 11:48] LABS: Glucose,Whole Blood 186 mg/dL (70-110)
[2023-10-10] MEDS ORDERED: LOSARTAN 50 MG TAB PO STA (12:36)
--- NOTE | 2023-10-10 12:38 | P.PN ---
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 Patient has a past medical history of hypertension, hyperlipidemia, diabetes mellitus insulin requiring. Patient currently resides at [facility] after she fell and broke her right leg in July. Patient presented to the hospital due to shortness of breath that became significantly worse last evening. She states she is feeling a little bit better now. Patient has been started on IV Lasix 40 mg every 12 hours. She denies any previous history of COPD. She does states she's had a cough with sputum production. It appears patient has been on a Z-Reginald prior to coming to the hospital. Patient is seen today in the ER waiting for a bed on the med-surg floor. EKG sinus rhythm, left axis deviation Chest x-ray: Cardiomegaly, pulmonary vascular congestion and bilateral pleural effusions. WBC 6.3, hemoglobin 12.5, platelet count 143. INR 1. Electrolytes normal. BUN 34 creatinine 0.87. AST 52, ALT 71, alkaline phosphatase 209. Troponin negative 2. ProBNP 1980. Lactic acid 0.9. Home cardiac medications: Aspirin 81 mg daily, Coreg 25 mg twice daily with parameters, hydralazine 50 mg every 8 hours, losartan 50 mg daily. 10/10/2023 Patient examined this morning at the bedside. Patient's daughter is present. Patient denies chest pain or pressure. She reports shortness of breath. She remains on IV Lasix. Echocardiogram completed revealing ejection fraction 55- 60%, severe pulmonary hypertension, moderate to severe MR and moderate to severe TR. Patient's blood pressure elevated this morning with a reading of 168/70. PHYSICAL EXAM: VITAL SIGNS: Reviewed. GENERAL: Well-developed in no acute distress. NECK: Supple. No JVD or thyromegaly LUNGS: Respirations even and unlabored. Lungs with expiratory wheezing and rhonchi noted throughout HEART: Regular rate and rhythm. S1 and S2 heard. Systolic murmur noted EXTREMITIES: Normal range of motion. No clubbing or cyanosis. Peripheral pulses intact. 1+ bilateral lower extremity edema ASSESSMENT: Acute heart failure with preserved ejection fraction Severe pulmonary hypertension Valvular heart disease including moderate to severe MR and TR Hypertension, uncontrolled Hyperlipidemia Diabetes PLAN: Continue current cardiac medications Increase losartan to 100 mg daily for optimal blood pressure control. Given additional dose of 50 mg now Patient may require increase in her hydralazine as well for optimal blood pressure control Continue IV Lasix Daily weights, accurate I&O, monitoring of kidney function Further recommendations pending patient's course Nurse practitioner note has been reviewed by physician. Signing provider agrees with the documented findings, assessment, and plan of care. Objective - Vital Signs Vital signs: Vital Signs Temp 97.6 F 10/10/23 07:16 Pulse 74 10/10/23 09:09 Resp 19 10/10/23 07:16 BP 168/70 10/10/23 09:09 Pulse Ox 97 10/10/23 07:16 FiO2 Intake & Output 10/09/23 10/10/23 10/10/23 18:59 06:59 18:59 Output Total 700 900 Balance -700 -900 Weight 63.503 kg Output: Urine 700 900 Other: Voiding Method External Catheter External Catheter # Voids 1 - Labs CBC & Chem 7: 10/08/23 19:55 10/10/23 05:55 Labs: Abnormal Lab Results - Last 24 Hours (Table) 10/09/23 10/09/23 10/09/23 Range/Units 14:06 17:04 20:26 Sodium (135-145) mmol/L Anion Gap (4.00-12.00) mmol/L BUN (9.0-27.0) mg/dL Est GFR (CKD-EPI) (>=60) BUN/Creatinine Ratio (12.00-20.00) Ratio Glucose (70-110) mg/dL POC Glucose (mg/dL) 145 H 266 H 127 H (70-110) mg/dL 10/10/23 10/10/23 Range/Units 05:55 11:46 Sodium 146 H (135-145) mmol/L Anion Gap 12.80 H (4.00-12.00) mmol/L BUN 34.0 H (9.0-27.0) mg/dL Est GFR (CKD-EPI) 49 L (>=60) BUN/Creatinine Ratio 30.91 H (12.00-20.00) Ratio Glucose 113 H (70-110) mg/dL POC Glucose (mg/dL) 186 H (70-110) mg/dL Microbiology - Last 24 Hours (Table) 10/09/23 20:00 Gram Stain - Preliminary Sputum 10/08/23 22:15 Blood Culture - Preliminary Blood 10/08/23 22:00 Blood Culture - Preliminary Blood
[2023-10-10] MEDS: IPRATROPIUM-ALBUTEROL 3 ML NEB INHALATION PRN ×2 (14:50→21:27)
--- NOTE | 2023-10-10 15:18 | P.PN ---
Subjective Progress Note Date: 10/10/23 * 87 year old female past medical history of hypertension, hyperlipidemia, diabetes mellitus insulin requiring. * Patient currently resides at [facility] after she fell and broke her right leg in July. * Patient presented to the hospital due to shortness of breath that became significantly worse EKG sinus rhythm, left axis deviation Chest x-ray: Cardiomegaly, pulmonary vascular congestion and bilateral pleural effusions. * WBC 6.3, hemoglobin 12.5, platelet count 143. INR 1. Electrolytes normal. BUN 34 creatinine 0.87. AST 52, ALT 71, alkaline phosphatase 209. Troponin negative 2. ProBNP 1980. Lactic acid 0.9. * 10/10/2023: Patient seen and evaluated bedside, patient does complain of cough, pro-calcitonin negative, started on Mucinex, cardiology following, continue patient on diuresis, patient does have upper airway wheezing nebulization ordered as needed, discussed K plan with patient and daughter follow-up on renal profile PHYSICAL EXAMINATION: GENERAL: The patient is alert and oriented x3, ill appearance, nasal cannula in place HEENT: Pupils are round and equally reacting to light. EOMI. CARDIOVASCULAR: S1 and S2 present. No murmurs, rubs, or gallops. PULMONARY: Decreased breath sounds bilaterally ABDOMEN: Soft, nontender, nondistended, normoactive bowel sounds. No palpable organomegaly. MUSCULOSKELETAL: No joint swelling or deformity. EXTREMITIES: No cyanosis, clubbing, or pedal edema. NEUROLOGICAL: Gross neurological examination did not reveal any focal deficits. Objective - Vital Signs Vital signs: Vital Signs Temp 97.6 F 10/10/23 07:16 Pulse 70 10/10/23 15:03 Resp 19 10/10/23 07:16 BP 168/70 10/10/23 09:09 Pulse Ox 99 10/10/23 14:50 FiO2 Intake & Output 10/09/23 10/10/23 10/10/23 18:59 06:59 18:59 Output Total 700 1625 Balance -700 -1625 Weight 63.503 kg Output: Urine 700 1625 Other: Voiding Method External Catheter External Catheter # Voids 1 - Labs CBC & Chem 7: 10/08/23 19:55 10/10/23 05:55 Labs: Abnormal Lab Results - Last 24 Hours (Table) 10/09/23 10/09/23 10/10/23 Range/Units 17:04 20:26 05:55 Sodium 146 H (135-145) mmol/L Anion Gap 12.80 H (4.00-12.00) mmol/L BUN 34.0 H (9.0-27.0) mg/dL Est GFR (CKD-EPI) 49 L (>=60) BUN/Creatinine Ratio 30.91 H (12.00-20.00) Ratio Glucose 113 H (70-110) mg/dL POC Glucose (mg/dL) 266 H 127 H (70-110) mg/dL 10/10/23 Range/Units 11:46 Sodium (135-145) mmol/L Anion Gap (4.00-12.00) mmol/L BUN (9.0-27.0) mg/dL Est GFR (CKD-EPI) (>=60) BUN/Creatinine Ratio (12.00-20.00) Ratio Glucose (70-110) mg/dL POC Glucose (mg/dL) 186 H (70-110) mg/dL Microbiology - Last 24 Hours (Table) 10/09/23 20:00 Gram Stain - Preliminary Sputum 10/08/23 22:15 Blood Culture - Preliminary Blood 10/08/23 22:00 Blood Culture - Preliminary Blood Assessment and Plan Assessment: Assessment and plan 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 Continue patient on Lasix * In regards to diabetes mellitus Accu-Cheks before meals at bedtime continue patient on correctional insulin monitor for hypoglycemia * In regards to hypertension continue Coreg, Lasix, hydralazine * Continue to monitor intake and output, patient had upper airway wheezing, breathing treatment is needed Time with Patient: Greater than 30
[2023-10-10] MEDS: guaiFENesin 600 MG TABLET.ER PO SCH ×2 (15:21→20:22)
[2023-10-10 16:43] LABS: Glucose,Whole Blood 214 mg/dL (70-110)
[2023-10-10 20:02] LABS: Glucose,Whole Blood 196 mg/dL (70-110)
[2023-10-10] MEDS: ATORVASTATIN 20 MG TAB PO SCH (20:18)
[2023-10-10] MEDS ORDERED: guaiFENesin 600 MG TABLET.ER PO SCH (21:00)
[2023-10-11 05:19] LABS: Glucose,Whole Blood 91 mg/dL (70-110)
[2023-10-11] MEDS: INSULIN ASPART (NovoLOG) 100 UNIT/ML VIAL SQ SCH ×4 (05:36→21:59)
[2023-10-11] MEDS: hydrALAZINE HCL 25 MG TAB PO SCH ×2 (06:31→15:09)
[2023-10-11] MEDS: INSULIN DETEMIR (LEVEMIR) 100 UNIT/ML SYR SQ SCH (07:17)
[2023-10-11] MEDS: FUROSEMIDE 10 MG/ML 4 ML VIAL IV SCH ×2 (07:17→22:00)
[2023-10-11] MEDS: rOPINIRole HCL 4 MG TABLET PO SCH ×2 (07:17→22:00)
[2023-10-11] MEDS: DULoxetine HCL 60 MG CAPSULE.DR PO SCH ×2 (07:18→22:00)
[2023-10-11] MEDS: DOCUSATE 100 MG CAP PO SCH ×2 (07:18→22:00)
[2023-10-11] MEDS: LOSARTAN 50 MG TAB PO SCH (07:18)
[2023-10-11] MEDS: PANTOPRAZOLE 40 MG TABLET PO SCH (07:18)
[2023-10-11] MEDS: guaiFENesin 600 MG TABLET.ER PO SCH ×2 (07:18→22:00)
[2023-10-11] MEDS: carvediloL 12.5 MG TAB PO SCH ×2 (07:18→17:12)
[2023-10-11] MEDS: ASPIRIN 81 MG PO SCH (07:18)
[2023-10-11] MEDS: ENOXAPARIN 30 MG/0.3 ML SYRINGE SQ SCH (07:19)
[2023-10-11] MEDS: LIDOCAINE 4% PATCH TOPICAL SCH (07:19)
--- NOTE | 2023-10-11 07:50 | XR ---
EXAMINATION TYPE: XR chest 1V portable DATE OF EXAM: 10/11/2023 COMPARISON: 10/08/2023 INDICATION: Respiratory failure TECHNIQUE: Single frontal view of the chest is obtained. FINDINGS: The heart size is normal. The pulmonary vasculature is prominent. Improving infiltrates are present. Residual remains at the left base. Correlate for atypical pulmonar y edema. Right shoulder degenerative changes are noted IMPRESSION: 1. Improving lung infiltrates with residual left base. Correlate for atypical pulmonary edema and con gestive heart failure. Continued follow-up is recommended.
[2023-10-11] MEDS: IPRATROPIUM-ALBUTEROL 3 ML NEB INHALATION PRN ×4 (09:33→18:31)
[2023-10-11 10:06] LABS: HCT 42.8 % (37.2-46.3); HGB 13.1 g/dL (12.0-15.0); MCHC 30.6 g/dL (32.0-37.0); MCV 101.2 FL (80.0-97.0); Mean Platelet Volume 11.6 FL (9.5-12.2); NRBC Per 100 WBC 0 X 10*3/uL (0.00-0.01); Platelet Count 188 X 10*3/uL (140-440); RBC 4.23 X 10*6/uL (4.10-5.20); RDW 15.5 % (11.5-14.5)
[2023-10-11 10:13] LABS: BUN/Creat Ratio 31.33 Ratio (12.00-20.00); Blood Urea Nitrogen 28.2 mg/dL (9.0-27.0); Calcium 9.5 mg/dL (8.7-10.3); Carbon Dioxide 31.1 mmol/L (21.6-31.8); Chloride 103 mmol/L (96-109); Glucose 93 mg/dL (70-110); Potassium 3.3 mmol/L (3.5-5.5); Sodium 146 mmol/L (135-145)
[2023-10-11 11:43] LABS: Glucose,Whole Blood 55 mg/dL (70-110)
[2023-10-11 12:00] LABS: Glucose,Whole Blood 81 mg/dL (70-110)
--- NOTE | 2023-10-11 13:16 | P.PN ---
Subjective Progress Note Date: 10/11/23 Principal diagnosis: Shortness of breath The patient is a pleasant 88-year-old female patient with a past medical history significant for heart failure and valvular heart disease with mitral and tricuspid regurgitation and pulmonary hypertension as well as diabetes and hypertension and dyslipidemia who was admitted to the hospital with heart failure and hypertension emergency. She was seen this morning which she continues to be short of breath and she continues to be hypervolemic. No chest pain and no dizziness or lightheadedness and no feeling of heart racing or fluttering. On examination she does have severe bilateral expiratory wheezing and rhonchi and the patient need to be on IV Lasix at this point. Her pressure has improved after we increased the dose of losartan yesterday. Assessment Valvular heart disease with mitral regurgitation Pulmonary hypertension Multiple comorbid conditions including hypertension and dyslipidemia and diabetes Plan Continue the current dose of Lasix IV Continue monitor the kidney function and electrolytes Follow-up with the patient Objective - Vital Signs Vital signs: Vital Signs Temp 97.7 F 10/11/23 07:01 Pulse 70 10/11/23 12:49 Resp 18 10/11/23 07:20 BP 143/79 10/11/23 08:33 Pulse Ox 94 L 10/11/23 09:33 FiO2 Intake & Output 10/10/23 10/11/23 10/11/23 18:59 06:59 18:59 Output Total 1924 1999 Balance -1924 -1999 Output: Urine 1924 1999 Other: Voiding Method External Catheter External Catheter External Catheter # Voids 2 - Labs CBC & Chem 7: 10/11/23 05:00 10/11/23 05:00 Labs: Abnormal Lab Results - Last 24 Hours (Table) 10/10/23 10/10/23 10/11/23 Range/Units 16:41 19:58 05:00 MCV (80.0-97.0) FL MCHC (32.0-37.0) g/dL RDW (11.5-14.5) % Sodium 146 H (135-145) mmol/L Potassium 3.3 L (3.5-5.5) mmol/L BUN 28.2 H (9.0-27.0) mg/dL BUN/Creatinine Ratio 31.33 H (12.00-20.00) Ratio POC Glucose (mg/dL) 214 H 196 H (70-110) mg/dL 10/11/23 10/11/23 Range/Units 05:00 11:42 MCV 101.2 H (80.0-97.0) FL MCHC 30.6 L (32.0-37.0) g/dL RDW 15.5 H (11.5-14.5) % Sodium (135-145) mmol/L Potassium (3.5-5.5) mmol/L BUN (9.0-27.0) mg/dL BUN/Creatinine Ratio (12.00-20.00) Ratio POC Glucose (mg/dL) 55 L (70-110) mg/dL Microbiology - Last 24 Hours (Table) 10/09/23 20:00 Gram Stain - Preliminary Sputum Sputum Culture - Preliminary 10/08/23 22:15 Blood Culture - Preliminary Blood 10/08/23 22:00 Blood Culture - Preliminary Blood
--- NOTE | 2023-10-11 14:22 | P.PN ---
Subjective Progress Note Date: 10/11/23 * 87 year old female past medical history of hypertension, hyperlipidemia, diabetes mellitus insulin requiring. * Patient currently resides at [facility] after she fell and broke her right leg in July. * Patient presented to the hospital due to shortness of breath that became significantly worse EKG sinus rhythm, left axis deviation Chest x-ray: Cardiomegaly, pulmonary vascular congestion and bilateral pleural effusions. * WBC 6.3, hemoglobin 12.5, platelet count 143. INR 1. Electrolytes normal. BUN 34 creatinine 0.87. AST 52, ALT 71, alkaline phosphatase 209. Troponin negative 2. ProBNP 1980. Lactic acid 0.9. * 10/10/2023: Patient seen and evaluated bedside, patient does complain of cough, pro-calcitonin negative, started on Mucinex, cardiology following, continue patient on diuresis, patient does have upper airway wheezing nebulization ordered as needed, discussed K plan with patient and daughter follow-up on renal profile * 10/11/2023: Patient seen and evaluated bedside, during my evaluation patient is awake and alert daughter at bedside, patient stated breathing has improved continue IV Lasix, CRP within normal limits do not suspect pneumonia continue to follow up on basic metabolic panel PHYSICAL EXAMINATION: GENERAL: The patient is alert and oriented x3, ill appearance, nasal cannula in place HEENT: Pupils are round and equally reacting to light. EOMI. CARDIOVASCULAR: S1 and S2 present. No murmurs, rubs, or gallops. PULMONARY: Decreased breath sounds bilaterally ABDOMEN: Soft, nontender, nondistended, normoactive bowel sounds. No palpable organomegaly. MUSCULOSKELETAL: No joint swelling or deformity. EXTREMITIES: No cyanosis, clubbing, or pedal edema. NEUROLOGICAL: Gross neurological examination did not reveal any focal deficits. Objective - Vital Signs Vital signs: Vital Signs Temp 97.7 F 10/11/23 07:01 Pulse 70 10/11/23 12:49 Resp 18 10/11/23 07:20 BP 143/79 10/11/23 08:33 Pulse Ox 94 L 10/11/23 09:33 FiO2 Intake & Output 10/10/23 10/11/23 10/11/23 18:59 06:59 18:59 Output Total 1924 1999 Balance -1924 Output: Urine 1924 1999 Other: Voiding Method External Catheter External Catheter External Catheter # Voids 2 - Labs CBC & Chem 7: 01/14/24 05:00 10/11/23 05:00 Labs: Abnormal Lab Results - Last 24 Hours (Table) 10/10/23 10/10/23 10/11/23 Range/Units 16:41 19:58 05:00 MCV (80.0-97.0) FL MCHC (32.0-37.0) g/dL RDW (11.5-14.5) % Sodium 146 H (135-145) mmol/L Potassium 3.3 L (3.5-5.5) mmol/L BUN 28.2 H (9.0-27.0) mg/dL BUN/Creatinine Ratio 31.33 H (12.00-20.00) Ratio POC Glucose (mg/dL) 214 H 196 H (70-110) mg/dL 10/11/23 10/11/23 Range/Units 05:00 11:42 MCV 101.2 H (80.0-97.0) FL MCHC 30.6 L (32.0-37.0) g/dL RDW 15.5 H (11.5-14.5) % Sodium (135-145) mmol/L Potassium (3.5-5.5) mmol/L BUN (9.0-27.0) mg/dL BUN/Creatinine Ratio (12.00-20.00) Ratio POC Glucose (mg/dL) 55 L (70-110) mg/dL Microbiology - Last 24 Hours (Table) 10/09/23 20:00 Gram Stain - Preliminary Sputum Sputum Culture - Preliminary 10/08/23 22:15 Blood Culture - Preliminary Blood 10/08/23 22:00 Blood Culture - Preliminary Blood Assessment and Plan Assessment: Assessment and plan 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 Continue patient on Lasix * In regards to diabetes mellitus Accu-Cheks before meals at bedtime continue patient on correctional insulin , continue Levemir monitor for hypoglycemia * In regards to hypertension continue Coreg, Lasix, hydralazine (INCREASED 10/11) * Continue to monitor intake and output, patient had upper airway wheezing, breathing treatment is needed
[2023-10-11 16:41] LABS: Glucose,Whole Blood 195 mg/dL (70-110)
[2023-10-11 20:58] LABS: Glucose,Whole Blood 163 mg/dL (70-110)
[2023-10-11] MEDS: ALBUTEROL NEBULIZED 2.5 MG/3 ML INHALATION PRN (21:51)
[2023-10-11] MEDS: FERROUS SULFATE 325 MG TAB PO SCH (22:00)
[2023-10-11] MEDS: ATORVASTATIN 20 MG TAB PO SCH (22:00)
[2023-10-12] MEDS: hydrALAZINE HCL 25 MG TAB PO SCH ×3 (00:05→17:33)
[2023-10-12] MEDS ORDERED: hydrALAZINE HCL 20 MG/ML 1 ML VIAL IVP STA ×2 (02:44→06:49)
[2023-10-12] MEDS: IPRATROPIUM-ALBUTEROL 3 ML NEB INHALATION PRN ×5 (04:05→21:24)
[2023-10-12 06:03] LABS: Glucose,Whole Blood 114 mg/dL (70-110)
[2023-10-12] MEDS: INSULIN ASPART (NovoLOG) 100 UNIT/ML VIAL SQ SCH ×4 (06:12→21:27)
[2023-10-12] MEDS: PANTOPRAZOLE 40 MG TABLET PO SCH (06:58)
[2023-10-12] MEDS: carvediloL 12.5 MG TAB PO SCH ×2 (06:58→17:33)
[2023-10-12] MEDS: ENOXAPARIN 40 MG/0.4 ML SYRINGE SQ SCH (08:31)
[2023-10-12] MEDS: rOPINIRole HCL 4 MG TABLET PO SCH ×2 (08:31→20:33)
[2023-10-12] MEDS: guaiFENesin 600 MG TABLET.ER PO SCH ×2 (08:31→20:33)
[2023-10-12] MEDS: DULoxetine HCL 60 MG CAPSULE.DR PO SCH ×2 (08:31→20:33)
[2023-10-12] MEDS: DOCUSATE 100 MG CAP PO SCH ×2 (08:31→20:33)
[2023-10-12] MEDS: ASPIRIN 81 MG PO SCH (08:31)
[2023-10-12] MEDS: FUROSEMIDE 10 MG/ML 4 ML VIAL IV SCH ×2 (08:32→22:04)
[2023-10-12] MEDS: LIDOCAINE 4% PATCH TOPICAL SCH (08:32)
[2023-10-12] MEDS: INSULIN DETEMIR (LEVEMIR) 100 UNIT/ML SYR SQ SCH (08:32)
[2023-10-12] MEDS: LOSARTAN 50 MG TAB PO SCH (08:32)
[2023-10-12 09:24] LABS: Blood Urea Nitrogen 24.6 mg/dL (9.0-27.0); Carbon Dioxide 36.6 mmol/L (21.6-31.8); Chloride 100 mmol/L (96-109); Glucose 115 mg/dL (70-110); Potassium 3.1 mmol/L (3.5-5.5); Sodium 146 mmol/L (135-145)
[2023-10-12] MEDS ORDERED: POTASSIUM CHLORIDE ER 20 MEQ TAB.ER PO STA (10:17)
[2023-10-12 10:34] LABS: Glucose,Whole Blood 270 mg/dL (70-110)
--- NOTE | 2023-10-12 11:59 | P.PN ---
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 Patient has a past medical history of hypertension, hyperlipidemia, diabetes mellitus insulin requiring. Patient currently resides at [facility] after she fell and broke her right leg in July. Patient presented to the hospital due to shortness of breath that became significantly worse last evening. She states she is feeling a little bit better now. Patient has been started on IV Lasix 40 mg every 12 hours. She denies any previous history of COPD. She does states she's had a cough with sputum production. It appears patient has been on a Z-Reginal[facility] prior to coming to the hospital. Patient is seen today in the ER waiting for a bed on the med-surg floor. EKG sinus rhythm, left axis deviation Chest x-ray: Cardiomegaly, pulmonary vascular congestion and bilateral pleural effusions. WBC 6.3, hemoglobin 12.5, platelet count 143. INR 1. Electrolytes normal. BUN 34 creatinine 0.87. AST 52, ALT 71, alkaline phosphatase 209. Troponin negative 2. ProBNP 1980. Lactic acid 0.9. Home cardiac medications: Aspirin 81 mg daily, Coreg 25 mg twice daily with parameters, hydralazine 50 mg every 8 hours, losartan 50 mg daily. 10/10/2023 Patient examined this morning at the bedside. Patient's daughter is present. Patient denies chest pain or pressure. She reports shortness of breath. She remains on IV Lasix. Echocardiogram completed revealing ejection fraction 55- 60%, severe pulmonary hypertension, moderate to severe MR and moderate to severe TR. Patient's blood pressure elevated this morning with a reading of 168/70. 10/12/2023 Patient examined this morning at the bedside. Patient currently denies chest pain or pressure. She reports mild shortness of breath. She remains on IV diuretics. Blood pressure significantly elevated this morning at 182/90. PHYSICAL EXAM: VITAL SIGNS: Reviewed. GENERAL: Well-developed in no acute distress. NECK: Supple. No JVD or thyromegaly LUNGS: Respirations even and unlabored. Lungs with expiratory wheezing and rhonchi noted throughout HEART: Regular rate and rhythm. S1 and S2 heard. Systolic murmur noted EXTREMITIES: Normal range of motion. No clubbing or cyanosis. Peripheral pulses intact. 1+ bilateral lower extremity edema ASSESSMENT: Acute heart failure with preserved ejection fraction Severe pulmonary hypertension Valvular heart disease including moderate to severe MR and TR Hypertension, uncontrolled Hyperlipidemia Diabetes PLAN: Continue current cardiac medications Discontinue losartan Begin valsartan 325 mg daily Add nifedipine 30 mg daily at noon Continue to monitor blood pressure Continue IV Lasix Daily weights, accurate I&O, monitoring of kidney function Patient continues to have significant wheezing. She may benefit from pulmonary consultation. We will defer this to internal medicine Further recommendations pending patient's course Nurse practitioner note has been reviewed by physician. Signing provider agrees with the documented findings, assessment, and plan of care. Objective - Vital Signs Vital signs: Vital Signs Temp 98.9 F 10/12/23 07:22 Pulse 72 10/12/23 11:51 Resp 19 10/12/23 07:22 BP 192/91 10/12/23 07:22 Pulse Ox 94 L 10/12/23 07:22 FiO2 Intake & Output 10/11/23 10/12/23 10/12/23 18:59 06:59 18:59 Output Total 1400 600 Balance -1400 -600 Output: Urine 1400 600 Other: Voiding Method External Catheter External Catheter External Catheter - Labs CBC & Chem 7: 10/11/23 05:00 10/12/23 04:19 Labs: Abnormal Lab Results - Last 24 Hours (Table) 10/11/23 10/11/23 10/12/23 Range/Units 16:40 20:57 04:19 Sodium 146 H (135-145) mmol/L Potassium 3.1 L (3.5-5.5) mmol/L Carbon Dioxide 36.6 H (21.6-31.8) mmol/L Est GFR (CKD-EPI) 54 L (>=60) BUN/Creatinine Ratio 24.60 H (12.00-20.00) Ratio Glucose 115 H (70-110) mg/dL POC Glucose (mg/dL) 195 H 163 H (70-110) mg/dL 10/12/23 10/12/23 Range/Units 06:01 10:32 Sodium (135-145) mmol/L Potassium (3.5-5.5) mmol/L Carbon Dioxide (21.6-31.8) mmol/L Est GFR (CKD-EPI) (>=60) BUN/Creatinine Ratio (12.00-20.00) Ratio Glucose (70-110) mg/dL POC Glucose (mg/dL) 114 H 270 H (70-110) mg/dL Microbiology - Last 24 Hours (Table) 10/09/23 20:00 Gram Stain - Final Sputum Sputum Culture - Final 10/08/23 22:15 Blood Culture - Preliminary Blood 10/08/23 22:00 Blood Culture - Preliminary Blood
[2023-10-12] MEDS ORDERED: NIFEdipine XL 30 MG TAB.ER.24 PO SCH (12:00)
--- NOTE | 2023-10-12 13:06 | P.PN ---
Subjective Progress Note Date: 10/12/23 * 87 year old female past medical history of hypertension, hyperlipidemia, diabetes mellitus insulin requiring. * Patient currently resides at [facility] after she fell and broke her right leg in July. * Patient presented to the hospital due to shortness of breath that became significantly worse EKG sinus rhythm, left axis deviation Chest x-ray: Cardiomegaly, pulmonary vascular congestion and bilateral pleural effusions. * WBC 6.3, hemoglobin 12.5, platelet count 143. INR 1. Electrolytes normal. BUN 34 creatinine 0.87. AST 52, ALT 71, alkaline phosphatase 209. Troponin negative 2. ProBNP 1980. Lactic acid 0.9. * 10/10/2023: Patient seen and evaluated bedside, patient does complain of cough, pro-calcitonin negative, started on Mucinex, cardiology following, continue patient on diuresis, patient does have upper airway wheezing nebulization ordered as needed, discussed K plan with patient and daughter follow-up on renal profile * 10/11/2023: Patient seen and evaluated bedside, during my evaluation patient is awake and alert daughter at bedside, patient stated breathing has improved continue IV Lasix, CRP within normal limits do not suspect pneumonia continue to follow up on basic metabolic panel * 10/12/2023: Patient seen and evaluated bedside, during my assessment patient seen breathing treatment, overnight she had episode of shortness of breath. At this time continue patient on diuresis continue IV Lasix cardiac medications adjusted patient was noted to have episode of hypertension patient does have significant wheezing does have severe pulmonary hypertension we will consult pulmonary medicine as well PHYSICAL EXAMINATION: GENERAL: The patient is alert and oriented x3, ill appearance, nasal cannula in place HEENT: Pupils are round and equally reacting to light. EOMI. CARDIOVASCULAR: S1 and S2 present. No murmurs, rubs, or gallops. PULMONARY: Decreased breath sounds bilaterally, wheezing ABDOMEN: Soft, nontender, nondistended, normoactive bowel sounds. No palpable organomegaly. MUSCULOSKELETAL: No joint swelling or deformity. EXTREMITIES: No cyanosis, clubbing, or pedal edema. NEUROLOGICAL: Gross neurological examination did not reveal any focal deficits. Objective - Vital Signs Vital signs: Vital Signs Temp 98.9 F 10/12/23 07:22 Pulse 72 10/12/23 12:04 Resp 19 10/12/23 07:22 BP 192/91 10/12/23 07:22 Pulse Ox 94 L 01/15/24 07:22 FiO2 Intake & Output 10/11/23 10/12/23 10/12/23 18:59 06:59 18:59 Output Total 1400 600 Balance -1400 -600 Output: Urine 1400 600 Other: Voiding Method External Catheter External Catheter External Catheter - Labs CBC & Chem 7: 10/11/23 05:00 10/12/23 04:19 Labs: Abnormal Lab Results - Last 24 Hours (Table) 10/11/23 10/11/23 10/12/23 Range/Units 16:40 20:57 04:19 Sodium 146 H (135-145) mmol/L Potassium 3.1 L (3.5-5.5) mmol/L Carbon Dioxide 36.6 H (21.6-31.8) mmol/L Est GFR (CKD-EPI) 54 L (>=60) BUN/Creatinine Ratio 24.60 H (12.00-20.00) Ratio Glucose 115 H (70-110) mg/dL POC Glucose (mg/dL) 195 H 163 H (70-110) mg/dL 10/12/23 10/12/23 Range/Units 06:01 10:32 Sodium (135-145) mmol/L Potassium (3.5-5.5) mmol/L Carbon Dioxide (21.6-31.8) mmol/L Est GFR (CKD-EPI) (>=60) BUN/Creatinine Ratio (12.00-20.00) Ratio Glucose (70-110) mg/dL POC Glucose (mg/dL) 114 H 270 H (70-110) mg/dL Microbiology - Last 24 Hours (Table) 10/09/23 20:00 Gram Stain - Final Sputum Sputum Culture - Final 10/08/23 22:15 Blood Culture - Preliminary Blood 10/08/23 22:00 Blood Culture - Preliminary Blood Assessment and Plan Assessment: Assessment and plan 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 Continue patient on Lasix * In regards to diabetes mellitus Accu-Cheks before meals at bedtime continue patient on correctional insulin , continue Levemir monitor for hypoglycemia * In regards to hypertension continue Coreg, Lasix, hydralazine (INCREASED 10/11), valsartan * Continue to monitor intake and output, patient had upper airway wheezing, breathing treatment is needed
--- NOTE | 2023-10-12 16:40 | P.CNPUL ---
History of Present Illness Consult date: 10/12/23 Reason for consult: dyspnea, hypoxemia History of present illness: 87-year-old female patient was being seen in consultation for hypoxic respirat ory failure. The patient is known to have diabetes mellitus, hypertension and hyperlipidemia. The patient had a fall and she sustained a hip fracture and she required 6 weeks of hospitalization at [facility], and the patient had a complicated postoperative course. Following that, she was sent to rehabilitation. She was admitted briefly for an acute hypertensive urgency/emergency and she was discharged to be readmitted to our facility with worsening shortness of breath. At time of admission, the patient was found to have a proBNP level of 1980. Troponins were negative. The white cell count at 6.3 with a hemoglobin of 12.5 with a normal coagulation profile and normal electrolytes. The chest x-ray was consistent with CHF. Echocardiogram was done that showed a preserved LV function, moderate mitral regurgitation, moderate to severe tricuspid regurgitation and severe pulmonary hypertension with a PA pressure in the mid 60s. The patient is currently on IV Lasix 40 mg every 12 hours. She is producing adequate amount of urine output and she states that her shortness of breath is improving. She continues to have a congestive cough and during the hospitalization the patient was still having episodes of hypertension. Cardiology has been consulted and the patient was covered with a combination of Coreg 25 mg by mouth twice a day valsartan 325 mg in addition nifedipine 30 mg by mouth daily. No reported aspiration. No reported aspiration. No significant sputum production. Her cough is congested and she is unable to bring up much of sputum. She is still weak and quite debilitated. HER blood pressure has remained quite elevated during this current hospitalization. In fact, her systolic blood pressure was as high as 200 and the most recent BP is 192/91. The pro-calcitonin level is at 0.04. Review of Systems CONSTITUTIONAL: No fever, no malaise, no fatigue. HEENT: No recent visual problems or hearing problems. Denied any sore throat. Patient is hard of hearing CARDIOVASCULAR: No chest pain,no palpitations, no syncope. PULMONARY:no hemoptysis. No planning of congested cough and shortness of breath GASTROINTESTINAL: No diarrhea, no nausea, no vomiting, no abdominal pain. NEUROLOGICAL: No headaches, generalized motor weakness in all 4 extremities HEMATOLOGICAL: Denies any bleeding or petechiae. GENITOURINARY: Denies any burning micturition, frequency, or urgency. MUSCULOSKELETAL/RHEUMATOLOGICAL: Denies any joint pain, swelling, or any muscle pain. ENDOCRINE: Denies any polyuria or polydipsia. The rest of the 14-point review of systems is negative. Past Medical History Past Medical History: Heart Failure, Diabetes Mellitus, Hypertension, Pneumonia Additional Past Medical History / Comment(s): new CHF 09/2023 History of Any Multi-Drug Resistant Organisms: None Reported Past Surgical History: Hysterectomy Additional Past Surgical History / Comment(s): R hip, cataract sx Past Anesthesia/Blood Transfusion Reactions: No Reported Reaction Smoking Status: Never smoker Past Alcohol Use History: None Reported Past Drug Use History: None Reported Medications and Allergies Home Medications Medication Instructions Recorded Confirmed Type Aspirin EC [Ecotrin Low Dose] 81 mg PO DAILY 10/08/23 10/08/23 History Azithromycin [Zithromax Z Pack] See Taper PO DIRECTED 10/08/23 10/08/23 History Calcium Carbonate [Tums] 500 mg PO BID 10/08/23 10/08/23 History DULoxetine HCL [Cymbalta] 60 mg PO BID 10/08/23 10/08/23 History Docusate [Colace] 100 mg PO Q12H 10/08/23 10/08/23 History Ergocalciferol (Vitamin D2) 1,250 mcg PO APPIAH 10/08/23 10/08/23 History [Drisdol (50,000 Iu)] Ferrous Sulfate [Feosol] 325 mg PO SUMOWEFR@2100 10/08/23 10/08/23 History HYDROcodone/APAP 5-325MG [[place] 1 tab PO Q4HR PRN 10/08/23 10/08/23 History 5-325] INSULIN ASPART (NovoLOG) [NovoLOG See Protocol SQ ACHS 10/08/23 10/08/23 History (formulary)] Insulin Detemir [Levemir Flexpen] 20 units SQ DAILY 10/08/23 10/08/23 History Lidocaine 5% Patch [Lidoderm] 1 patch TOPICAL DAILY 10/08/23 10/08/23 History Losartan [Cozaar] 50 mg PO DAILY 10/08/23 10/08/23 History Pantoprazole [Protonix] 40 mg PO DAILY 10/08/23 10/08/23 History carvediloL [Coreg] 25 mg PO BID PRN 10/08/23 10/08/23 History cefTRIAXone [Rocephin] 1 gm IVPB DAILY 10/08/23 10/08/23 History cloNIDine HCL 0.2 mg PO Q8H PRN 10/08/23 10/08/23 History hydrALAZINE HCL [Apresoline] 50 mg PO Q8H 10/08/23 10/08/23 History polyethylene glycoL 3350 [Miralax] 17 gm PO DAILY 10/08/23 10/08/23 History rOPINIRole HCL [Requip] 4 mg PO Q12H 10/08/23 10/08/23 History Allergies Allergy/AdvReac Type Severity Reaction Status Date / Time No Known Allergies Allergy Verified 10/08/23 21:45 Physical Exam Vitals: Vital Signs Temp Pulse Pulse Resp BP Pulse Ox 10/12/23 16:28 68 10/12/23 16:18 64 10/12/23 12:04 72 10/12/23 11:51 72 10/12/23 08:52 76 10/12/23 08:38 76 10/12/23 07:22 98.9 F 72 19 192/91 94 L 10/12/23 06:33 207/93 10/12/23 04:20 76 10/12/23 04:07 72 10/12/23 02:30 201/103 10/12/23 00:05 97.7 F 76 19 209/98 97 10/11/23 22:01 75 10/11/23 21:51 76 10/11/23 18:41 78 10/11/23 18:31 74 10/11/23 18:14 98.6 F 77 19 175/74 100 10/11/23 16:45 70 Intake and Output 10/12/23 10/12/23 10/12/23 06:59 14:59 22:59 Output Total 600 Balance -600 Output: Urine 600 Other: Voiding Method External Catheter GENERAL: The patient is alert and oriented x3, ill appearance, nasal cannula in place, currently on 3 L of action nasal cannula Head exam was generally normal. There was no scleral icterus or corneal arcus. Mucous membranes were moist. HEENT: Pupils are round and equally reacting to light. EOMI. positive JVD is can be appreciated bilaterally CARDIOVASCULAR: S1 and S2 present. No murmurs, rubs, or gallops. There is a systolic ejection murmur grade 3/6 over the left precordium PULMONARY: Decreased breath sounds bilaterally, the patient has crackles in lung bases bilaterally and the patient diffuse rhonchi THERE WAS AN LUNG BASE BILATERALLY. ABDOMEN: Soft, nontender, nondistended, normoactive bowel sounds. No palpable organomegaly. MUSCULOSKELETAL: No joint swelling or deformity. EXTREMITIES: No cyanosis, clubbing, or pedal edema. NEUROLOGICAL: Gross neurological examination did not reveal any focal deficits. There is generalized motor weakness in all 4 extremities. Results - Laboratory Findings CBC and BMP: 10/11/23 05:00 10/12/23 04:19 PT/INR, D-dimer PT 11.0 sec (10.0-12.5) 10/08/23 19:55 INR 1.0 (<1.2) 10/08/23 19:55 Abnormal lab findings: Abnormal Labs 10/08/23 10/08/23 10/09/23 19:55 19:55 10:37 MCV 102.4 H MCHC 30.7 L RDW Plt Count 143 L Lymphocytes # 0.6 L Sodium Potassium Carbon Dioxide Anion Gap BUN 34 H Est GFR (CKD-EPI) BUN/Creatinine Ratio Glucose POC Glucose (mg/dL) 161 H AST 52 H ALT 71 H Alkaline Phosphatase 209 H 10/09/23 10/09/23 10/09/23 14:06 17:04 20:26 MCV MCHC RDW Plt Count Lymphocytes # Sodium Potassium Carbon Dioxide Anion Gap BUN Est GFR (CKD-EPI) BUN/Creatinine Ratio Glucose POC Glucose (mg/dL) 145 H 266 H 127 H AST ALT Alkaline Phosphatase 10/10/23 10/10/23 10/10/23 05:55 11:46 16:41 MCV MCHC RDW Plt Count Lymphocytes # Sodium 146 H Potassium Carbon Dioxide Anion Gap 12.80 H BUN 34.0 H Est GFR (CKD-EPI) 49 L BUN/Creatinine Ratio 30.91 H Glucose 113 H POC Glucose (mg/dL) 186 H 214 H AST ALT Alkaline Phosphatase 10/10/23 10/11/23 10/11/23 19:58 05:00 05:00 MCV 101.2 H MCHC 30.6 L RDW 15.5 H Plt Count Lymphocytes # Sodium 146 H Potassium 3.3 L Carbon Dioxide Anion Gap BUN 28.2 H Est GFR (CKD-EPI) BUN/Creatinine Ratio 31.33 H Glucose POC Glucose (mg/dL) 196 H AST ALT Alkaline Phosphatase 10/11/23 10/11/23 10/11/23 11:42 16:40 20:57 MCV MCHC RDW Plt Count Lymphocytes # Sodium Potassium Carbon Dioxide Anion Gap BUN Est GFR (CKD-EPI) BUN/Creatinine Ratio Glucose POC Glucose (mg/dL) 55 L 195 H 163 H AST ALT Alkaline Phosphatase 10/12/23 10/12/23 10/12/23 04:19 06:01 10:32 MCV MCHC RDW Plt Count Lymphocytes # Sodium 146 H Potassium 3.1 L Carbon Dioxide 36.6 H Anion Gap BUN Est GFR (CKD-EPI) 54 L BUN/Creatinine Ratio 24.60 H Glucose 115 H POC Glucose (mg/dL) 114 H 270 H AST ALT Alkaline Phosphatase - Diagnostic Findings Chest x-ray: image reviewed Assessment and Plan Plan: Acute hypoxic respiratory failure, currently on 3 L of oxygen by nasal cannula. Chest x-ray is consistent with CHF. Superinfection/pneumonia is felt to be less likely. Pro-calcitonin level is nonelevated. The patient is afebrile without any significant leukocytosis. No reported aspiration. Responding to diuretics Hypertension with poorly controlled blood pressure/hypertensive urgency CHF with valvular heart disease and moderate mitral regurgitation and severe tricuspid regurgitation and secondary pulmonary hypertension. 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 heart failure Hypertension Hyperlipidemia Diabetes mellitus type 2 Fall with a hip fracture requiring a prolonged hospitalization in [facility] Generalized weakness and chronic debility secondary to above Plan Will need tighter blood pressure control. Cardiology has been involved and the patient is currently on a combination of Coreg 25 mg twice a day, Diovan 320 mg by mouth daily and nifedipine 30 mg by mouth daily Continue IV Lasix 40 mg every 12 hours Monitor fluid balance Monitor creatinine Repeat chest x-ray in the morning Titrate oxygen flow to maintain saturation above 90% Levemir insulin for blood sugar control Resume all medications We'll continue to follow
[2023-10-12 17:00] LABS: Glucose,Whole Blood 190 mg/dL (70-110)
[2023-10-12] MEDS: FERROUS SULFATE 325 MG TAB PO SCH (20:33)
[2023-10-12] MEDS: ATORVASTATIN 20 MG TAB PO SCH (20:33)
[2023-10-12 21:08] LABS: Glucose,Whole Blood 141 mg/dL (70-110)
[2023-10-13] MEDS: hydrALAZINE HCL 25 MG TAB PO SCH ×3 (00:33→15:48)
[2023-10-13 05:36] LABS: Glucose,Whole Blood 125 mg/dL (70-110)
[2023-10-13] MEDS: INSULIN ASPART (NovoLOG) 100 UNIT/ML VIAL SQ SCH ×4 (06:18→21:37)
[2023-10-13] MEDS: PANTOPRAZOLE 40 MG TABLET PO SCH (06:54)
[2023-10-13] MEDS: carvediloL 12.5 MG TAB PO SCH ×2 (06:54→17:29)
[2023-10-13] MEDS: INSULIN DETEMIR (LEVEMIR) 100 UNIT/ML SYR SQ SCH (06:54)
[2023-10-13 07:15] LABS: African American GFR (CKD) 74 (>60 ml/min/1.73 sqM); Blood Urea Nitrogen 29 mg/dL (7-17); Calcium 8.8 mg/dL (8.4-10.2); Chloride 98 mmol/L (98-107); Glucose 144 mg/dL (74-99); Non-African American GFR(CKD) 64 (>60 ml/min/1.73 sqM); Potassium 3.2 mmol/L (3.5-5.1); Sodium 141 mmol/L (137-145)
[2023-10-13 07:22] LABS: Anion Gap 8 mmol/L; NT-Pro-B-Type Natriuretic Pept 1390 pg/mL
[2023-10-13 07:28] LABS: Carbon Dioxide 35 mmol/L (22-30)
[2023-10-13] MEDS: DOCUSATE 100 MG CAP PO SCH ×2 (08:26→21:37)
[2023-10-13] MEDS: ASPIRIN 81 MG PO SCH (08:26)
[2023-10-13] MEDS: ENOXAPARIN 40 MG/0.4 ML SYRINGE SQ SCH (08:26)
[2023-10-13] MEDS: guaiFENesin 600 MG TABLET.ER PO SCH ×2 (08:26→21:37)
[2023-10-13] MEDS: DULoxetine HCL 60 MG CAPSULE.DR PO SCH ×2 (08:26→21:37)
[2023-10-13] MEDS: FUROSEMIDE 10 MG/ML 4 ML VIAL IV SCH ×2 (08:27→21:36)
[2023-10-13] MEDS: LIDOCAINE 4% PATCH TOPICAL SCH (08:27)
[2023-10-13] MEDS: VALSARTAN 160 MG TAB PO SCH (08:29)
[2023-10-13] MEDS: rOPINIRole HCL 4 MG TABLET PO SCH ×2 (08:29→21:36)
[2023-10-13] MEDS: IPRATROPIUM-ALBUTEROL 3 ML NEB INHALATION PRN ×4 (08:53→21:12)
[2023-10-13] MEDS: POTASSIUM CHLORIDE ER 20 MEQ TAB.ER PO SCH ×2 (10:38→21:37)
[2023-10-13 10:47] LABS: Glucose,Whole Blood 178 mg/dL (70-110)
--- NOTE | 2023-10-13 11:13 | P.PN ---
Subjective HISTORY OF PRESENT ILLNESS: This is an 87 year old female patient denies any previous cardiac history and does not follow with a hemmer chainstitch. Patient has a past medical history of hypertension, hyperlipidemia, diabetes mellitus insulin requiring. Patient currently resides at [facility] after she fell and broke her right leg in July. Patient presented to the hospital due to shortness of breath that became significantly worse last evening. She states she is feeling a little bit better now. Patient has been started on IV Lasix 40 mg every 12 hours. She denies any previous history of COPD. She does states she's had a cough with sputum production. It appears patient has been on a Z-Reginald prior to coming to the hospital. Patient is seen today in the ER waiting for a bed on the med-surg floor. EKG sinus rhythm, left axis deviation Chest x-ray: Cardiomegaly, pulmonary vascular congestion and bilateral pleural effusions. WBC 6.3, hemoglobin 12.5, platelet count 143. INR 1. Electrolytes normal. BUN 34 creatinine 0.87. AST 52, ALT 71, alkaline phosphatase 209. Troponin negative 2. ProBNP 1980. Lactic acid 0.9. Home cardiac medications: Aspirin 81 mg daily, Coreg 25 mg twice daily with parameters, hydralazine 50 mg every 8 hours, losartan 50 mg daily. 10/10/2023 Patient examined this morning at the bedside. Patient's daughter is present. Patient denies chest pain or pressure. She reports shortness of breath. She remains on IV Lasix. Echocardiogram completed revealing ejection fraction 55- 60%, severe pulmonary hypertension, moderate to severe MR and moderate to severe TR. Patient's blood pressure elevated this morning with a reading of 168/70. 10/12/2023 Patient examined this morning at the bedside. Patient currently denies chest pain or pressure. She reports mild shortness of breath. She remains on IV diuretics. Blood pressure significantly elevated this morning at 182/90. 10/13/2023 Patient examined this morning at the bedside. Patient denies chest pain or pressure. She reports improvement in her breathing. She remains on IV Lasix. Patient's blood pressure has improved today with adjustment of medications yesterday although it is still running high. Blood pressure 169/83. PHYSICAL EXAM: VITAL SIGNS: Reviewed. GENERAL: Well-developed in no acute distress. NECK: Supple. No JVD or thyromegaly LUNGS: Respirations even and unlabored. Lungs with expiratory wheezing and rhonchi noted throughout HEART: Regular rate and rhythm. S1 and S2 heard. Systolic murmur noted EXTREMITIES: Normal range of motion. No clubbing or cyanosis. Peripheral pulses intact. 1+ bilateral lower extremity edema ASSESSMENT: Acute heart failure with preserved ejection fraction Severe pulmonary hypertension Valvular heart disease including moderate to severe MR and TR Hypertension, uncontrolled Hyperlipidemia Diabetes PLAN: Increase Procardia to 60 mg Continue additional cardiac medications Continue to monitor blood pressure Continue IV Lasix Daily weights, accurate I&O, and monitoring of kidney function Further recommendations pending patient's course Nurse practitioner note has been reviewed by physician. Signing provider agrees with the documented findings, assessment, and plan of care. Objective - Vital Signs Vital signs: Vital Signs Temp 97.4 F L 10/13/23 07:21 Pulse 64 10/13/23 09:04 Resp 20 10/13/23 09:06 BP 169/83 10/13/23 07:21 Pulse Ox 97 10/13/23 07:21 FiO2 Intake & Output 10/12/23 10/13/23 10/13/23 18:59 06:59 18:59 Intake Total 250 Output Total 600 1050 Balance -600 -1050 250 Intake: Oral 250 Output: Urine 600 1050 Other: Voiding Method External Catheter External Catheter External Catheter - Labs CBC & Chem 7: 10/11/23 05:00 10/13/23 06:13 Labs: Abnormal Lab Results - Last 24 Hours (Table) 10/12/23 10/12/23 10/13/23 Range/Units 16:58 21:00 05:34 Potassium (3.5-5.1) mmol/L Carbon Dioxide (22-30) mmol/L BUN (7-17) mg/dL Glucose (74-99) mg/dL POC Glucose (mg/dL) 190 H 141 H 125 H (70-110) mg/dL 10/13/23 10/13/23 Range/Units 06:13 10:46 Potassium 3.2 L (3.5-5.1) mmol/L Carbon Dioxide 35 H (22-30) mmol/L BUN 29 H (7-17) mg/dL Glucose 144 H (74-99) mg/dL POC Glucose (mg/dL) 178 H (70-110) mg/dL Microbiology - Last 24 Hours (Table) 10/09/23 20:00 Gram Stain - Final Sputum Sputum Culture - Final
[2023-10-13] MEDS: methylPREDNISolone SOD SUCCI 40 MG/ML 1 ML VIAL IV SCH ×2 (11:52→21:37)
--- NOTE | 2023-10-13 12:05 | XR ---
EXAMINATION TYPE: XR chest 1V DATE OF EXAM: 10/13/2023 11:50 AM CLINICAL INDICATION:Female, 88 years old with history of chf; COMPARISON: Chest radiographs from 10/11/2023. TECHNIQUE: XR chest 1V Frontal view of the chest. FINDINGS: Lungs/Pleura: Low lung volumes are present. There is no evidence of pleural effusion, focal consolida tion, or pneumothorax. Pulmonary vascularity: Mild pulmonary vascular congestion. Heart/mediastinum: Cardiomediastinal silhouette is enlarged and stable. Musculoskeletal: No acute osseous pathology. IMPRESSION: Low lung volumes with a generalized hazy appearance which could represent atelectasis versus pulmonar y edema correlate with serum BNP.
--- NOTE | 2023-10-13 12:58 | P.PN ---
Subjective Progress Note Date: 10/13/23 * 87 year old female past medical history of hypertension, hyperlipidemia, diabetes mellitus insulin requiring. * Patient currently resides at [facility] after she fell and broke her right leg in July. * Patient presented to the hospital due to shortness of breath that became significantly worse EKG sinus rhythm, left axis deviation Chest x-ray: Cardiomegaly, pulmonary vascular congestion and bilateral pleural effusions. * WBC 6.3, hemoglobin 12.5, platelet count 143. INR 1. Electrolytes normal. BUN 34 creatinine 0.87. AST 52, ALT 71, alkaline phosphatase 209. Troponin negative 2. ProBNP 1980. Lactic acid 0.9. * 10/10/2023: Patient seen and evaluated bedside, patient does complain of cough, pro-calcitonin negative, started on Mucinex, cardiology following, continue patient on diuresis, patient does have upper airway wheezing nebulization ordered as needed, discussed K plan with patient and daughter follow-up on renal profile * 10/11/2023: Patient seen and evaluated bedside, during my evaluation patient is awake and alert daughter at bedside, patient stated breathing has improved continue IV Lasix, CRP within normal limits do not suspect pneumonia continue to follow up on basic metabolic panel * 10/12/2023: Patient seen and evaluated bedside, during my assessment patient seen breathing treatment, overnight she had episode of shortness of breath. At this time continue patient on diuresis continue IV Lasix cardiac medications adjusted patient was noted to have episode of hypertension patient does have significant wheezing does have severe pulmonary hypertension we will consult pulmonary medicine as well * 10/13/2023: Patient seen and evaluated bedside, on my assessment patient is alert and oriented 3, family at bedside, patient states her breathing has improved. Continue diuresis potassium replaced, N-terminal pro BNP trending down 1390 appreciate input from pulmonary medicine PHYSICAL EXAMINATION: GENERAL: The patient is alert and oriented x3, ill appearance, nasal cannula in place HEENT: Pupils are round and equally reacting to light. EOMI. CARDIOVASCULAR: S1 and S2 present. No murmurs, rubs, or gallops. PULMONARY: Decreased breath sounds bilaterally, wheezing resolved ABDOMEN: Soft, nontender, nondistended, normoactive bowel sounds. No palpable organomegaly. MUSCULOSKELETAL: No joint swelling or deformity. EXTREMITIES: No cyanosis, clubbing, or pedal edema. NEUROLOGICAL: Gross neurological examination did not reveal any focal deficits. Objective - Vital Signs Vital signs: Vital Signs Temp 97.4 F L 10/13/23 07:21 Pulse 64 10/13/23 12:10 Resp 20 10/13/23 09:06 BP 151/76 10/13/23 11:50 Pulse Ox 97 10/13/23 07:21 FiO2 Intake & Output 10/12/23 10/13/23 10/13/23 18:59 06:59 18:59 Intake Total 600 Output Total 600 1050 Balance -600 -1050 600 Intake: Oral 600 Output: Urine 600 1050 Other: Voiding Method External Catheter External Catheter External Catheter - Labs CBC & Chem 7: 10/11/23 05:00 10/13/23 06:13 Labs: Abnormal Lab Results - Last 24 Hours (Table) 10/12/23 10/12/23 10/13/23 Range/Units 16:58 21:00 05:34 Potassium (3.5-5.1) mmol/L Carbon Dioxide (22-30) mmol/L BUN (7-17) mg/dL Glucose (74-99) mg/dL POC Glucose (mg/dL) 190 H 141 H 125 H (70-110) mg/dL 10/13/23 10/13/23 Range/Units 06:13 10:46 Potassium 3.2 L (3.5-5.1) mmol/L Carbon Dioxide 35 H (22-30) mmol/L BUN 29 H (7-17) mg/dL Glucose 144 H (74-99) mg/dL POC Glucose (mg/dL) 178 H (70-110) mg/dL Microbiology - Last 24 Hours (Table) 10/09/23 20:00 Gram Stain - Final Sputum Sputum Culture - Final Assessment and Plan Assessment: Assessment and plan * 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 Continue patient on Lasix * In regards to diabetes mellitus Accu-Cheks before meals at bedtime continue patient on correctional insulin , continue Levemir monitor for hypoglycemia * In regards to hypertension continue Coreg, Lasix, hydralazine (INCREASED ), valsartan, Procardia * Continue to monitor intake and output, patient had upper airway wheezing, breathing treatment is needed, appreciate input from pulmonary medicine * Will need physical therapy occupational therapy evaluation Time with Patient: Greater than 30
--- NOTE | 2023-10-13 13:32 | P.PN ---
Subjective Progress Note Date: 10/13/23 87-year-old female patient was being seen in consultation for hypoxic respirato ry failure. The patient is known to have diabetes mellitus, hypertension and hyperlipidemia. The patient had a fall and she sustained a hip fracture and she required 6 weeks of hospitalization at [facility], and the patient had a complicated postoperative course. Following that, she was sent to rehabilitation. She was admitted briefly for an acute hypertensive urgency/emergency and she was discharged to be readmitted to our facility with worsening shortness of breath. At time of admission, the patient was found to have a proBNP level of 1980. Troponins were negative. The white cell count at 6.3 with a hemoglobin of 12.5 with a normal coagulation profile and normal electrolytes. The chest x-ray was consistent with CHF. Echocardiogram was done that showed a preserved LV function, moderate mitral regurgitation, moderate to severe tricuspid regurgitation and severe pulmonary hypertension with a PA pressure in the mid 60s. The patient is currently on IV Lasix 40 mg every 12 hours. She is producing adequate amount of urine output and she states that her shortness of breath is improving. She continues to have a congestive cough and during the hospitalization the patient was still having episodes of hypertension. Cardiology has been consulted and the patient was covered with a combination of Coreg 25 mg by mouth twice a day valsartan 325 mg in addition nifedipine 30 mg by mouth daily. No reported aspiration. No reported aspiration. No significant sputum production. Her cough is congested and she is unable to bring up much of sputum. She is still weak and quite debilitated. HER blood pressure has remained quite elevated during this current hospitalization. In fact, her systolic blood pressure was as high as 200 and the most recent BP is 192/91. The pro-calcitonin level is at 0.04. On today's evaluation of 10/13/2023, limited improvement since yesterday. The patient continues to have cough and congestion and chest tightness and wheeze. She remains on IV Lasix and she is receiving 40 mg every 12 hours. She is producing adequate amount of urine output. Her labs from today shows a BUN of 29 with creatinine of 0.8 and a sodium level is at 141. No new complaints otherwise for now. Oxygen requirements are at 3 L. In same time, the patient was having issues with elevated blood pressure. Procardia dose was increased up to 60 mg. Her most recent BP is down to 151/76. As such, her blood pressures under better control. A repeat chest x-ray was done today that showed low lung volumes and generalized hazy appearance representing atelectasis and there is also still evidence of pulmonary vessel congestion. Objective - Vital Signs Vital signs: Vital Signs Temp 97.4 F L 10/13/23 07:21 Pulse 64 10/13/23 09:04 Resp 20 10/13/23 09:06 BP 169/83 10/13/23 07:21 Pulse Ox 97 10/13/23 07:21 FiO2 Intake & Output 10/12/23 10/13/23 10/13/23 18:59 06:59 18:59 Intake Total 250 Output Total 600 1050 Balance -600 -1050 250 Intake: Oral 250 Output: Urine 600 1050 Other: Voiding Method External Catheter External Catheter External Catheter - Exam GENERAL: The patient is alert and oriented x3, ill appearance, nasal cannula in place, currently on 3 L of action nasal cannula Head exam was generally normal. There was no scleral icterus or corneal arcus. Mucous membranes were moist. HEENT: Pupils are round and equally reacting to light. EOMI. positive JVD is can be appreciated bilaterally CARDIOVASCULAR: S1 and S2 present. No murmurs, rubs, or gallops. There is a sys tolic ejection murmur grade 3/6 over the left precordium PULMONARY: Decreased breath sounds bilaterally, the patient has crackles in lung bases bilaterally and the patient diffuse rhonchi THERE WAS AN LUNG BASE BILATERALLY. ABDOMEN: Soft, nontender, nondistended, normoactive bowel sounds. No palpable organomegaly. MUSCULOSKELETAL: No joint swelling or deformity. EXTREMITIES: No cyanosis, clubbing, or pedal edema. NEUROLOGICAL: Gross neurological examination did not reveal any focal deficits. There is generalized motor weakness in all 4 extremities. - Labs CBC & Chem 7: 10/11/23 05:00 10/13/23 06:13 Labs: Abnormal Lab Results - Last 24 Hours (Table) 10/12/23 10/12/23 10/13/23 Range/Units 16:58 21:00 05:34 Potassium (3.5-5.1) mmol/L Carbon Dioxide (22-30) mmol/L BUN (7-17) mg/dL Glucose (74-99) mg/dL POC Glucose (mg/dL) 190 H 141 H 125 H (70-110) mg/dL 10/13/23 10/13/23 Range/Units 06:13 10:46 Potassium 3.2 L (3.5-5.1) mmol/L Carbon Dioxide 35 H (22-30) mmol/L BUN 29 H (7-17) mg/dL Glucose 144 H (74-99) mg/dL POC Glucose (mg/dL) 178 H (70-110) mg/dL Microbiology - Last 24 Hours (Table) 10/09/23 20:00 Gram Stain - Final Sputum Sputum Culture - Final Assessment and Plan Plan: Acute hypoxic respiratory failure, currently on 3 L of oxygen by nasal cannula. Chest x-ray is consistent with CHF. Superinfection/pneumonia is felt to be less likely. Pro-calcitonin level is nonelevated. The patient is afebrile without any significant leukocytosis. No reported aspiration. Responding to diuretics Hypertension with poorly controlled blood pressure/hypertensive urgency, BP is under better control on today's evaluation CHF with valvular heart disease and moderate mitral regurgitation and severe tricuspid regurgitation and secondary pulmonary hypertension. 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 heart failure Hypertension Hyperlipidemia Diabetes mellitus type 2 Fall with a hip fracture requiring a prolonged hospitalization in [facility] Generalized weakness and chronic debility secondary to above Plan Blood pressure control is improving and the patient is currently on Coreg 25 mg by mouth twice a day, Diovan 320 mg by mouth daily and the Procardia Zosyn and increased up to 60 mg by mouth daily. Cardiology has been involved and the patient is currently on a combination of Coreg 25 mg twice a day, Diovan 320 mg by mouth daily and nifedipine 30 mg by mouth daily Continue IV Lasix 40 mg every 12 hours Reviewed the follow-up chest x-ray and there is still evidence of pulmonary vessel congestion Monitor fluid balance Monitor creatinine Based on her underlying bronchospasm wheezing. We'll going to give the patient Solu-Medrol 40 mg every 8 hours and monitor the blood sugars. Titrate oxygen flow to maintain saturation above 90% Levemir insulin for blood sugar control We'll continue to follow
[2023-10-13 16:45] LABS: Glucose,Whole Blood 272 mg/dL (70-110)
[2023-10-13 20:55] LABS: Glucose,Whole Blood 357 mg/dL (70-110)
[2023-10-13] MEDS: ATORVASTATIN 20 MG TAB PO SCH (21:37)
[2023-10-14] MEDS: hydrALAZINE HCL 25 MG TAB PO SCH ×3 (01:03→17:26)
[2023-10-14] MEDS: methylPREDNISolone SOD SUCCI 40 MG/ML 1 ML VIAL IV SCH ×3 (04:01→21:42)
[2023-10-14 05:32] LABS: Glucose,Whole Blood 313 mg/dL (70-110)
[2023-10-14] MEDS: INSULIN DETEMIR (LEVEMIR) 100 UNIT/ML SYR SQ SCH (06:28)
[2023-10-14] MEDS: carvediloL 12.5 MG TAB PO SCH ×2 (06:28→17:26)
[2023-10-14] MEDS: PANTOPRAZOLE 40 MG TABLET PO SCH (06:28)
[2023-10-14] MEDS: INSULIN ASPART (NovoLOG) 100 UNIT/ML VIAL SQ SCH ×4 (06:29→21:44)
[2023-10-14] MEDS: ASPIRIN 81 MG PO SCH (07:38)
[2023-10-14] MEDS: DOCUSATE 100 MG CAP PO SCH ×2 (07:38→21:43)
[2023-10-14] MEDS: POTASSIUM CHLORIDE ER 20 MEQ TAB.ER PO SCH ×2 (07:38→21:43)
[2023-10-14] MEDS: guaiFENesin 600 MG TABLET.ER PO SCH ×2 (07:38→21:44)
[2023-10-14] MEDS: DULoxetine HCL 60 MG CAPSULE.DR PO SCH ×2 (07:39→21:43)
[2023-10-14] MEDS: FUROSEMIDE 10 MG/ML 4 ML VIAL IV SCH ×2 (07:39→21:43)
[2023-10-14] MEDS: LIDOCAINE 4% PATCH TOPICAL SCH (07:39)
[2023-10-14] MEDS: ENOXAPARIN 40 MG/0.4 ML SYRINGE SQ SCH (07:39)
[2023-10-14] MEDS: rOPINIRole HCL 4 MG TABLET PO SCH ×2 (07:40→21:43)
[2023-10-14] MEDS: VALSARTAN 160 MG TAB PO SCH (07:40)
[2023-10-14] MEDS: IPRATROPIUM-ALBUTEROL 3 ML NEB INHALATION PRN ×4 (08:43→21:04)
[2023-10-14 08:49] LABS: HCT 40.5 % (37.2-46.3); HGB 12.9 g/dL (12.0-15.0); MCH 31.5 pg (27.0-32.0); MCHC 31.9 g/dL (32.0-37.0); Mean Platelet Volume 11.4 FL (9.5-12.2); NRBC Per 100 WBC 0 X 10*3/uL (0.00-0.01); Platelet Count 147 X 10*3/uL (140-440); RBC 4.09 X 10*6/uL (4.10-5.20); RDW 14.4 % (11.5-14.5); WBC 3.87 X 10*3/uL (4.50-10.00)
--- NOTE | 2023-10-14 09:50 | P.PN ---
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 Patient has a past medical history of hypertension, hyperlipidemia, diabetes mellitus insulin requiring. Patient currently resides at [facility] [place] after she fell and broke her right leg in July. Patient presented to the hospital due to shortness of breath that became significantly worse last evening. She states she is feeling a little bit better now. Patient has been started on IV Lasix 40 mg every 12 hours. She denies any previous history of COPD. She does states she's had a cough with sputum production. It appears patient has been on a Z-Reginald prior to coming to the hospital. Patient is seen today in the ER waiting for a bed on the med-surg floor. EKG sinus rhythm, left axis deviation Chest x-ray: Cardiomegaly, pulmonary vascular congestion and bilateral pleural effusions. WBC 6.3, hemoglobin 12.5, platelet count 143. INR 1. Electrolytes normal. BUN 34 creatinine 0.87. AST 52, ALT 71, alkaline phosphatase 209. Troponin negative 2. ProBNP 1980. Lactic acid 0.9. Home cardiac medications: Aspirin 81 mg daily, Coreg 25 mg twice daily with parameters, hydralazine 50 mg every 8 hours, losartan 50 mg daily. 10/10/2023 Patient examined this morning at the bedside. Patient's daughter is present. Patient denies chest pain or pressure. She reports shortness of breath. She remains on IV Lasix. Echocardiogram completed revealing ejection fraction 55- 60%, severe pulmonary hypertension, moderate to severe MR and moderate to severe TR. Patient's blood pressure elevated this morning with a reading of 168/70. 10/12/2023 Patient examined this morning at the bedside. Patient currently denies chest pain or pressure. She reports mild shortness of breath. She remains on IV diuretics. Blood pressure significantly elevated this morning at 182/90. 10/13/2023 Patient examined this morning at the bedside. Patient denies chest pain or pressure. She reports improvement in her breathing. She remains on IV Lasix. Patient's blood pressure has improved today with adjustment of medications yesterday although it is still running high. Blood pressure 169/83. 10/14/2023 Patient examined this morning at the bedside. Patient denies chest pain or pressure. She currently denies shortness of breath. Her breathing appears much less labored today. She remains on IV Lasix. Patient's blood pressure has improved with a systolic in the 130s. PHYSICAL EXAM: VITAL SIGNS: Reviewed. GENERAL: Well-developed in no acute distress. NECK: Supple. No JVD or thyromegaly LUNGS: Respirations even and unlabored. Lungs with mild expiratory wheezing noted HEART: Regular rate and rhythm. S1 and S2 heard. Systolic murmur noted EXTREMITIES: Normal range of motion. No clubbing or cyanosis. Peripheral pulse s intact. 1+ bilateral lower extremity edema ASSESSMENT: Acute heart failure with preserved ejection fraction Severe pulmonary hypertension Valvular heart disease including moderate to severe MR and TR Hypertension, uncontrolled Hyperlipidemia Diabetes PLAN: Continue current cardiac medications Continue to monitor blood pressure Continue IV Lasix for today. Begin oral Lasix 40 mg twice a day starting tomorrow morning Daily weights, accurate I&O, and monitoring of kidney function We will sign off. Please reconsult if needed Nurse practitioner note has been reviewed by physician. Signing provider agrees with the documented findings, assessment, and plan of care. Objective - Vital Signs Vital signs: Vital Signs Temp 97.5 F L 10/14/23 07:26 Pulse 60 10/14/23 08:57 Resp 19 10/14/23 07:26 BP 139/72 10/14/23 07:26 Pulse Ox 100 10/14/23 07:26 FiO2 Intake & Output 10/13/23 10/14/23 10/14/23 18:59 06:59 18:59 Intake Total 800 Output Total 600 450 Balance 200 -450 Intake: Oral 800 Output: Urine 600 450 Other: Voiding Method External Catheter External Catheter # Voids 1 - Labs CBC & Chem 7: 10/14/23 04:26 10/14/23 04:26 Labs: Abnormal Lab Results - Last 24 Hours (Table) 10/13/23 10/13/23 10/13/23 Range/Units 10:46 16:44 20:52 WBC (4.50-10.00) X 10*3/uL RBC (4.10-5.20) X 10*6/uL MCV (80.0-97.0) FL MCHC (32.0-37.0) g/dL POC Glucose (mg/dL) 178 H 272 H 357 H (70-110) mg/dL 10/14/23 10/14/23 Range/Units 04:26 05:31 WBC 3.87 L (4.50-10.00) X 10*3/uL RBC 4.09 L (4.10-5.20) X 10*6/uL MCV 99.0 H (80.0-97.0) FL MCHC 31.9 L (32.0-37.0) g/dL POC Glucose (mg/dL) 313 H (70-110) mg/dL Microbiology - Last 24 Hours (Table) 10/08/23 22:15 Blood Culture - Final Blood 10/08/23 22:00 Blood Culture - Final Blood
[2023-10-14 09:52] LABS: Blood Urea Nitrogen 34.8 mg/dL (9.0-27.0); Calcium 9.2 mg/dL (8.7-10.3); Carbon Dioxide 34.2 mmol/L (21.6-31.8); Chloride 98 mmol/L (96-109); Glucose 270 mg/dL (70-110); Potassium 4.3 mmol/L (3.5-5.5); Sodium 142 mmol/L (135-145)
[2023-10-14 11:45] LABS: Glucose,Whole Blood 486 mg/dL (70-110)
[2023-10-14] MEDS ORDERED: INSULIN ASPART (NovoLOG) 100 UNIT/ML VIAL SQ ONE (11:56)
--- NOTE | 2023-10-14 12:28 | P.PN ---
Subjective Progress Note Date: 10/14/23 * 87 year old female past medical history of hypertension, hyperlipidemia, diabetes mellitus insulin requiring. * Patient currently resides at [facility] [place] after she fell and broke her right leg in July. * Patient presented to the hospital due to shortness of breath that became significantly worse EKG sinus rhythm, left axis deviation Chest x-ray: Cardiomegaly, pulmonary vascular congestion and bilateral pleural effusions. * WBC 6.3, hemoglobin 12.5, platelet count 143. INR 1. Electrolytes normal. BUN 34 creatinine 0.87. AST 52, ALT 71, alkaline phosphatase 209. Troponin negative 2. ProBNP 1980. Lactic acid 0.9. * 10/10/2023: Patient seen and evaluated bedside, patient does complain of cough, pro-calcitonin negative, started on Mucinex, cardiology following, continue patient on diuresis, patient does have upper airway wheezing nebulization ordered as needed, discussed K plan with patient and daughter follow-up on renal profile * 10/11/2023: Patient seen and evaluated bedside, during my evaluation patient is awake and alert daughter at bedside, patient stated breathing has improved continue IV Lasix, CRP within normal limits do not suspect pneumonia continue to follow up on basic metabolic panel * 10/12/2023: Patient seen and evaluated bedside, during my assessment patient seen breathing treatment, overnight she had episode of shortness of breath. At this time continue patient on diuresis continue IV Lasix cardiac medications adjusted patient was noted to have episode of hypertension patient does have significant wheezing does have severe pulmonary hypertension we will consult pulmonary medicine as well * 10/13/2023: Patient seen and evaluated bedside, on my assessment patient is alert and oriented 3, family at bedside, patient states her breathing has improved. Continue diuresis potassium replaced, N-terminal pro BNP trending down 1390 appreciate input from pulmonary medicine * 10/14/2023: Patient seen and evaluated bedside, patient continues to remain on oxygen, however shortness of breath is improved continue on IV Lasix, cardiology following his appreciate input patient to go back to rehab , continue to monitor renal function PHYSICAL EXAMINATION: GENERAL: The patient is alert and oriented x3, ill appearance, nasal cannula in place HEENT: Pupils are round and equally reacting to light. EOMI. CARDIOVASCULAR: S1 and S2 present. No murmurs, rubs, or gallops. PULMONARY: Decreased breath sounds bilaterally, wheezing resolved ABDOMEN: Soft, nontender, nondistended, normoactive bowel sounds. No palpable organomegaly. MUSCULOSKELETAL: No joint swelling or deformity. EXTREMITIES: No cyanosis, clubbing, or pedal edema. NEUROLOGICAL: Gross neurological examination did not reveal any focal deficits. Objective - Vital Signs Vital signs: Vital Signs Temp 97.5 F L 10/14/23 07:26 Pulse 64 10/14/23 12:24 Resp 19 10/14/23 07:26 BP 139/72 10/14/23 07:26 Pulse Ox 100 10/14/23 07:26 FiO2 Intake & Output 10/13/23 10/14/23 10/14/23 18:59 06:59 18:59 Intake Total 800 Output Total 600 450 Balance 200 -450 Weight 63.503 kg Intake: Oral 800 Output: Urine 600 450 Other: Voiding Method External Catheter External Catheter External Catheter # Voids 1 - Labs CBC & Chem 7: 10/14/23 04:26 10/14/23 04:26 Labs: Abnormal Lab Results - Last 24 Hours (Table) 10/13/23 10/13/23 10/14/23 Range/Units 16:44 20:52 04:26 WBC 3.87 L (4.50-10.00) X 10*3/uL RBC 4.09 L (4.10-5.20) X 10*6/uL MCV 99.0 H (80.0-97.0) FL MCHC 31.9 L (32.0-37.0) g/dL Carbon Dioxide (21.6-31.8) mmol/L BUN (9.0-27.0) mg/dL Est GFR (CKD-EPI) (>=60) BUN/Creatinine Ratio (12.00-20.00) Ratio Glucose (70-110) mg/dL POC Glucose (mg/dL) 272 H 357 H (70-110) mg/dL 10/14/23 10/14/23 10/14/23 Range/Units 04:26 05:31 11:44 WBC (4.50-10.00) X 10*3/uL RBC (4.10-5.20) X 10*6/uL MCV (80.0-97.0) FL MCHC (32.0-37.0) g/dL Carbon Dioxide 34.2 H (21.6-31.8) mmol/L BUN 34.8 H (9.0-27.0) mg/dL Est GFR (CKD-EPI) 44 L (>=60) BUN/Creatinine Ratio 29.00 H (12.00-20.00) Ratio Glucose 270 H (70-110) mg/dL POC Glucose (mg/dL) 313 H 486 H (70-110) mg/dL Microbiology - Last 24 Hours (Table) 10/08/23 22:15 Blood Culture - Final Blood 10/08/23 22:00 Blood Culture - Final Blood Assessment and Plan Assessment: Assessment and plan * 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 Continue patient on Lasix transitioned from IV to oral * In regards to diabetes mellitus Accu-Cheks before meals at bedtime continue patient on correctional insulin , continue Levemir monitor for hypoglycemia * In regards to hypertension continue Coreg, Lasix, hydralazine (INCREASED 10/11), valsartan, Procardia * Continue to monitor intake and output, patient had upper airway wheezing, breathing treatment is needed, appreciate input from pulmonary medicine * Will need physical therapy occupational therapy evaluation
--- NOTE | 2023-10-14 14:52 | P.PN ---
Subjective Progress Note Date: 10/14/23 87-year-old female patient was being seen in consultation for hypoxic respirato ry failure. The patient is known to have diabetes mellitus, hypertension and hyperlipidemia. The patient had a fall and she sustained a hip fracture and she required 6 weeks of hospitalization at [facility], and the patient had a complicated postoperative course. Following that, she was sent to rehabilitation. She was admitted briefly for an acute hypertensive urgency/emergency and she was discharged to be readmitted to our facility with worsening shortness of breath. At time of admission, the patient was found to have a proBNP level of 1980. Troponins were negative. The white cell count at 6.3 with a hemoglobin of 12.5 with a normal coagulation profile and normal electrolytes. The chest x-ray was consistent with CHF. Echocardiogram was done that showed a preserved LV function, moderate mitral regurgitation, moderate to severe tricuspid regurgitation and severe pulmonary hypertension with a PA pressure in the mid 60s. The patient is currently on IV Lasix 40 mg every 12 hours. She is producing adequate amount of urine output and she states that her shortness of breath is improving. She continues to have a congestive cough and during the hospitalization the patient was still having episodes of hypertension. Cardiology has been consulted and the patient was covered with a combination of Coreg 25 mg by mouth twice a day valsartan 325 mg in addition nifedipine 30 mg by mouth daily. No reported aspiration. No reported aspiration. No significant sputum production. Her cough is congested and she is unable to bring up much of sputum. She is still weak and quite debilitated. HER blood pressure has remained quite elevated during this current hospitalization. In fact, her systolic blood pressure was as high as 200 and the most recent BP is 192/91. The pro-calcitonin level is at 0.04. On today's evaluation of 10/13/2023, limited improvement since yesterday. The patient continues to have cough and congestion and chest tightness and wheeze. She remains on IV Lasix and she is receiving 40 mg every 12 hours. She is producing adequate amount of urine output. Her labs from today shows a BUN of 29 with creatinine of 0.8 and a sodium level is at 141. No new complaints otherwise for now. Oxygen requirements are at 3 L. In same time, the patient was having issues with elevated blood pressure. Procardia dose was increased up to 60 mg. Her most recent BP is down to 151/76. As such, her blood pressures under better control. A repeat chest x-ray was done today that showed low lung volumes and generalized hazy appearance representing atelectasis and there is also still evidence of pulmonary vessel congestion. On 10/14/2023, the patient is feeling much better. No significant cough or congestion. This has subsided significantly as the patient was started on systemic steroids. The patient is currently receiving Solu-Medrol 40 mg every 8 hours. No chest pain. No significant sputum production patient remains on oxygen 2 L/m nasal cannula. No confusion. No altered mentation. She remains on Lasix 40 mg IV every 12 hours. The fluid balance remains -1.6 L over the past 24 hours. The patient remains on 2 L of Oxymizer nasal cannula. We were able to wean her down to room air oxygen and pulse ox remained at 99%. Objective - Vital Signs Vital signs: Vital Signs Temp 97.6 F 10/14/23 12:45 Pulse 61 10/14/23 12:45 Resp 19 10/14/23 12:45 BP 128/69 10/14/23 12:45 Pulse Ox 99 10/14/23 12:45 FiO2 Intake & Output 10/13/23 10/14/23 10/14/23 18:59 06:59 18:59 Intake Total 800 Output Total 600 450 Balance 200 -450 Weight 63.503 kg Intake: Oral 800 Output: Urine 600 450 Other: Voiding Method External Catheter External Catheter External Catheter # Voids 1 - Exam GENERAL: The patient is alert and oriented x3, ill appearance, nasal cannula in place, currently on room air oxygen Head exam was generally normal. There was no scleral icterus or corneal arcus. Mucous membranes were moist. HEENT: Pupils are round and equally reacting to light. EOMI. positive JVD is can be appreciated bilaterally CARDIOVASCULAR: S1 and S2 present. No murmurs, rubs, or gallops. There is a systolic ejection murmur grade 3/6 over the left precordium PULMONARY: Decreased breath sounds bilaterally, the patient has crackles in lung bases bilaterally and the patient diffuse rhonchi THERE WAS AN LUNG BASE BILATERALLY. ABDOMEN: Soft, nontender, nondistended, normoactive bowel sounds. No palpable organomegaly. MUSCULOSKELETAL: No joint swelling or deformity. EXTREMITIES: No cyanosis, clubbing, or pedal edema. NEUROLOGICAL: Gross neurological examination did not reveal any focal deficits. There is generalized motor weakness in all 4 extremities. - Labs CBC & Chem 7: 10/14/23 04:26 10/14/23 04:26 Labs: Abnormal Lab Results - Last 24 Hours (Table) 10/13/23 10/13/23 10/14/23 Range/Units 16:44 20:52 04:26 WBC 3.87 L (4.50-10.00) X 10*3/uL RBC 4.09 L (4.10-5.20) X 10*6/uL MCV 99.0 H (80.0-97.0) FL MCHC 31.9 L (32.0-37.0) g/dL Carbon Dioxide (21.6-31.8) mmol/L BUN (9.0-27.0) mg/dL Est GFR (CKD-EPI) (>=60) BUN/Creatinine Ratio (12.00-20.00) Ratio Glucose (70-110) mg/dL POC Glucose (mg/dL) 272 H 357 H (70-110) mg/dL 10/14/23 10/14/23 10/14/23 Range/Units 04:26 05:31 11:44 WBC (4.50-10.00) X 10*3/uL RBC (4.10-5.20) X 10*6/uL MCV (80.0-97.0) FL MCHC (32.0-37.0) g/dL Carbon Dioxide 34.2 H (21.6-31.8) mmol/L BUN 34.8 H (9.0-27.0) mg/dL Est GFR (CKD-EPI) 44 L (>=60) BUN/Creatinine Ratio 29.00 H (12.00-20.00) Ratio Glucose 270 H (70-110) mg/dL POC Glucose (mg/dL) 313 H 486 H (70-110) mg/dL Microbiology - Last 24 Hours (Table) 10/08/23 22:15 Blood Culture - Final Blood 10/08/23 22:00 Blood Culture - Final Blood Assessment and Plan Plan: Acute hypoxic respiratory failure, currently improved and the patient is currently on room air oxygen. Acute bronchospasm and wheezing congestion, improved with steroids. Rule out cardiac asthma. Rule out wheezing secondary to increased pulmonary vascular congestion and the patient obviously improving with accommodation of diuretics and steroids. Hypertension with poorly controlled blood pressure/hypertensive urgency, BP is under better control on today's evaluation CHF with valvular heart disease and moderate mitral regurgitation and severe tricuspid regurgitation and secondary pulmonary hypertension. 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 heart failure Hypertension Hyperlipidemia Diabetes mellitus type 2 Fall with a hip fracture requiring a prolonged hospitalization in [facility] Generalized weakness and chronic debility secondary to above Plan Continue IV Solu-Medrol for another 24 hours The patient is currently on Lasix 40 mg every 12 hours. This will be continued for 24 hours and the patient will be transitioned to oral Lasix in a.m. The patient's oxygenation is improved and the patient is currently on room air oxygen. Blood pressures under better control. currently on Coreg 25 mg by mouth twice a day, Diovan 320 mg by mouth daily and the Procardia Zosyn and increased up to 60 mg by mouth daily. Cardiology has been involved and the patient is currently on a combination of Coreg 25 mg twice a day, Diovan 320 mg by mouth daily and nifedipine 30 mg by mouth daily Monitor fluid balance Monitor creatinine Titrate oxygen flow to maintain saturation above 90% Levemir insulin for blood sugar control Repeat another chest x-ray in the morning We'll continue to follow
[2023-10-14 16:53] LABS: Glucose,Whole Blood 352 mg/dL (70-110)
[2023-10-14 20:47] LABS: Glucose,Whole Blood 348 mg/dL (70-110)
[2023-10-14] MEDS: ATORVASTATIN 20 MG TAB PO SCH (21:43)
[2023-10-14] MEDS: FERROUS SULFATE 325 MG TAB PO SCH (21:44)
[2023-10-15] MEDS: hydrALAZINE HCL 25 MG TAB PO SCH ×4 (00:33→23:28)
[2023-10-15] MEDS: methylPREDNISolone SOD SUCCI 40 MG/ML 1 ML VIAL IV SCH (03:40)
[2023-10-15 05:22] LABS: Glucose,Whole Blood 322 mg/dL (70-110)
[2023-10-15] MEDS: INSULIN DETEMIR (LEVEMIR) 100 UNIT/ML SYR SQ SCH (06:56)
[2023-10-15] MEDS: INSULIN ASPART (NovoLOG) 100 UNIT/ML VIAL SQ SCH ×6 (06:56→21:19)
[2023-10-15] MEDS: PANTOPRAZOLE 40 MG TABLET PO SCH (06:56)
[2023-10-15] MEDS: DOCUSATE 100 MG CAP PO SCH ×2 (07:42→21:19)
[2023-10-15] MEDS: ENOXAPARIN 30 MG/0.3 ML SYRINGE SQ SCH (07:42)
[2023-10-15] MEDS: carvediloL 12.5 MG TAB PO SCH ×2 (07:42→17:43)
[2023-10-15] MEDS: guaiFENesin 600 MG TABLET.ER PO SCH ×2 (07:42→21:19)
[2023-10-15] MEDS: POTASSIUM CHLORIDE ER 20 MEQ TAB.ER PO SCH ×2 (07:42→21:19)
[2023-10-15] MEDS: DULoxetine HCL 60 MG CAPSULE.DR PO SCH ×2 (07:42→21:19)
[2023-10-15] MEDS: ASPIRIN 81 MG PO SCH (07:43)
[2023-10-15] MEDS: LIDOCAINE 4% PATCH TOPICAL SCH (07:43)
[2023-10-15] MEDS: FUROSEMIDE 40 MG TAB PO SCH ×2 (07:43→15:45)
[2023-10-15] MEDS: VALSARTAN 160 MG TAB PO SCH (07:43)
[2023-10-15] MEDS: rOPINIRole HCL 4 MG TABLET PO SCH ×2 (07:44→21:19)
--- NOTE | 2023-10-15 09:09 | XR ---
EXAMINATION TYPE: XR chest 1V DATE OF EXAM: 10/15/2023 COMPARISON: 10/13/2023 HISTORY: 88-year-old female with CHF TECHNIQUE: Single frontal view of the chest is obtained. FINDINGS: Heart mildly enlarged. Atherosclerotic calcifications throughout the thoracic aorta. Diffu se interstitial density persists. Aeration is slightly improved particularly at the left base. Rounde d retrocardiac density noted. Advanced degenerative change right shoulder. IMPRESSION: Cardiomegaly and ongoing pulmonary vascular congestion. Aeration shows slight improvemen t from prior.
[2023-10-15] MEDS ORDERED: DEXTROSE 50% SYRINGE 50 ML IVP PRN ×2 (10:08)
[2023-10-15 11:12] LABS: HGB 13.1 g/dL (12.0-15.0); MCH 31.1 pg (27.0-32.0); MCHC 31.2 g/dL (32.0-37.0); MCV 99.8 FL (80.0-97.0); Mean Platelet Volume 12.2 FL (9.5-12.2); NRBC Per 100 WBC 0 X 10*3/uL (0.00-0.01); Platelet Count 143 X 10*3/uL (140-440); RBC 4.21 X 10*6/uL (4.10-5.20); RDW 14.4 % (11.5-14.5); WBC 9.36 X 10*3/uL (4.50-10.00)
[2023-10-15 11:34] LABS: Glucose,Whole Blood 390 mg/dL (70-110)
[2023-10-15 11:53] LABS: BUN/Creat Ratio 34.33 Ratio (12.00-20.00); Blood Urea Nitrogen 51.5 mg/dL (9.0-27.0); Calcium 9.6 mg/dL (8.7-10.3); Chloride 98 mmol/L (96-109); Glucose 303 mg/dL (70-110); Sodium 139 mmol/L (135-145)
--- NOTE | 2023-10-15 12:42 | P.PN ---
Subjective Progress Note Date: 10/15/23 * 87 year old female past medical history of hypertension, hyperlipidemia, diabetes mellitus insulin requiring. * Patient currently resides at [facility] [place] after she fell and broke her right leg in July. * Patient presented to the hospital due to shortness of breath that became significantly worse EKG sinus rhythm, left axis deviation Chest x-ray: Cardiomegaly, pulmonary vascular congestion and bilateral pleural effusions. * WBC 6.3, hemoglobin 12.5, platelet count 143. INR 1. Electrolytes normal. BUN 34 creatinine 0.87. AST 52, ALT 71, alkaline phosphatase 209. Troponin negative 2. ProBNP 1980. Lactic acid 0.9. * 10/10/2023: Patient seen and evaluated bedside, patient does complain of cough, pro-calcitonin negative, started on Mucinex, cardiology following, continue patient on diuresis, patient does have upper airway wheezing nebulization ordered as needed, discussed K plan with patient and daughter follow-up on renal profile * 10/11/2023: Patient seen and evaluated bedside, during my evaluation patient is awake and alert daughter at bedside, patient stated breathing has improved continue IV Lasix, CRP within normal limits do not suspect pneumonia continue to follow up on basic metabolic panel * 10/12/2023: Patient seen and evaluated bedside, during my assessment patient seen breathing treatment, overnight she had episode of shortness of breath. At this time continue patient on diuresis continue IV Lasix cardiac medications adjusted patient was noted to have episode of hypertension patient does have significant wheezing does have severe pulmonary hypertension we will consult pulmonary medicine as well * 10/13/2023: Patient seen and evaluated bedside, on my assessment patient is alert and oriented 3, family at bedside, patient states her breathing has improved. Continue diuresis potassium replaced, N-terminal pro BNP trending down 1390 appreciate input from pulmonary medicine * 10/14/2023: Patient seen and evaluated bedside, patient continues to remain on oxygen, however shortness of breath is improved continue on IV Lasix, cardiology following his appreciate input patient to go back to rehab , continue to monitor renal function * 10/15/2023: Patient seen and evaluated bedside, upon evaluation patient is alert and oriented 3, appears on room air, family at bedside beginning has improved blood glucose elevated, steroids and transitioned to oral, continue patient on as needed breathing treatments. Chest x-ray shows pulmonary vascular congestion slight improvement aeration noted PHYSICAL EXAMINATION: GENERAL: The patient is alert and oriented x3, ill appearance, off nasal cannula HEENT: Pupils are round and equally reacting to light. EOMI. CARDIOVASCULAR: S1 and S2 present. No murmurs, rubs, or gallops. PULMONARY: Improved. Air Entry bilaterally, wheezing resolved ABDOMEN: Soft, nontender, nondistended, normoactive bowel sounds. No palpable organomegaly. MUSCULOSKELETAL: No joint swelling or deformity. EXTREMITIES: No cyanosis, clubbing, or pedal edema. NEUROLOGICAL: Gross neurological examination did not reveal any focal deficits. Objective - Vital Signs Vital signs: Vital Signs Temp 97.8 F 10/15/23 07:05 Pulse 62 10/15/23 11:09 Resp 18 10/15/23 10:12 BP 127/70 10/15/23 11:09 Pulse Ox 89 L 10/15/23 10:12 FiO2 Intake & Output 10/14/23 10/15/23 10/15/23 18:59 06:59 18:59 Intake Total 200 450 420 Output Total 325 Balance 200 125 420 Weight 63.503 kg 67 kg Intake: Oral 200 450 420 Output: Urine 325 Other: Voiding Method External Catheter External Catheter External Catheter # Voids 2 - Labs CBC & Chem 7: 10/15/23 05:35 10/15/23 05:35 Labs: Abnormal Lab Results - Last 24 Hours (Table) 10/14/23 10/14/23 10/15/23 Range/Units 16:51 20:45 05:18 MCV (80.0-97.0) FL MCHC (32.0-37.0) g/dL BUN (9.0-27.0) mg/dL Est GFR (CKD-EPI) (>=60) BUN/Creatinine Ratio (12.00-20.00) Ratio Glucose (70-110) mg/dL POC Glucose (mg/dL) 352 H 348 H 322 H (70-110) mg/dL 10/15/23 10/15/23 10/15/23 Range/Units 05:35 05:35 11:32 MCV 99.8 H (80.0-97.0) FL MCHC 31.2 L (32.0-37.0) g/dL BUN 51.5 H (9.0-27.0) mg/dL Est GFR (CKD-EPI) 33 L (>=60) BUN/Creatinine Ratio 34.33 H (12.00-20.00) Ratio Glucose 303 H (70-110) mg/dL POC Glucose (mg/dL) 390 H (70-110) mg/dL Assessment and Plan Assessment: Assessment and plan * 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 Continue patient on Lasix transitioned from IV to oral * In regards to diabetes mellitus Accu-Cheks before meals at bedtime continue patient on correctional insulin , continue Levemir monitor for hypoglycemia * In regards to hypertension continue Coreg, Lasix, hydralazine (INCREASED 10/11), valsartan, Procardia * Continue to monitor intake and output, patient had upper airway wheezing, breathing treatment is needed, appreciate input from pulmonary medicine * Will need physical therapy occupational therapy evaluation>> plan to discharge to subacute rehab
--- NOTE | 2023-10-15 16:09 | P.PN ---
Subjective Progress Note Date: 10/15/23 87-year-old female patient was being seen in consultation for hypoxic respirato ry failure. The patient is known to have diabetes mellitus, hypertension and hyperlipidemia. The patient had a fall and she sustained a hip fracture and she required 6 weeks of hospitalization at [facility], and the patient had a complicated postoperative course. Following that, she was sent to rehabilitation. She was admitted briefly for an acute hypertensive urgency/emergency and she was discharged to be readmitted to our facility with worsening shortness of breath. At time of admission, the patient was found to have a proBNP level of 1980. Troponins were negative. The white cell count at 6.3 with a hemoglobin of 12.5 with a normal coagulation profile and normal electrolytes. The chest x-ray was consistent with CHF. Echocardiogram was done that showed a preserved LV function, moderate mitral regurgitation, moderate to severe tricuspid regurgitation and severe pulmonary hypertension with a PA pressure in the mid 60s. The patient is currently on IV Lasix 40 mg every 12 hours. She is producing adequate amount of urine output and she states that her shortness of breath is improving. She continues to have a congestive cough and during the hospitalization the patient was still having episodes of hypertension. Cardiology has been consulted and the patient was covered with a combination of Coreg 25 mg by mouth twice a day valsartan 325 mg in addition nifedipine 30 mg by mouth daily. No reported aspiration. No reported aspiration. No significant sputum production. Her cough is congested and she is unable to bring up much of sputum. She is still weak and quite debilitated. HER blood pressure has remained quite elevated during this current hospitalization. In fact, her systolic blood pressure was as high as 200 and the most recent BP is 192/91. The pro-calcitonin level is at 0.04. On today's evaluation of 10/13/2023, limited improvement since yesterday. The patient continues to have cough and congestion and chest tightness and wheeze. She remains on IV Lasix and she is receiving 40 mg every 12 hours. She is producing adequate amount of urine output. Her labs from today shows a BUN of 29 with creatinine of 0.8 and a sodium level is at 141. No new complaints otherwise for now. Oxygen requirements are at 3 L. In same time, the patient was having issues with elevated blood pressure. Procardia dose was increased up to 60 mg. Her most recent BP is down to 151/76. As such, her blood pressures under better control. A repeat chest x-ray was done today that showed low lung volumes and generalized hazy appearance representing atelectasis and there is also still evidence of pulmonary vessel congestion. On 10/14/2023, the patient is feeling much better. No significant cough or congestion. This has subsided significantly as the patient was started on systemic steroids. The patient is currently receiving Solu-Medrol 40 mg every 8 hours. No chest pain. No significant sputum production patient remains on oxygen 2 L/m nasal cannula. No confusion. No altered mentation. She remains on Lasix 40 mg IV every 12 hours. The fluid balance remains -1.6 L over the past 24 hours. The patient remains on 2 L of Oxymizer nasal cannula. We were able to wean her down to room air oxygen and pulse ox remained at 99%. 10/15/2023, the patient continues to improve. She is less short of breath. Cough and congestion also improving. She is currently on room air oxygen. Chest x-ray from yesterday showed improvement in volume status and there is some cardiomegaly. Meanwhile, the patient developed an acute kidney injury. Creatinine is up to 1.5. The patient was switched to oral Lasix 40 mg twice a day. There is a 51. Sodium is at 139, there is +9.3 with a hemoglobin of 15.1. No altered mentation. She is sitting up on a chair and she is coming comfortable. Objective - Vital Signs Vital signs: Vital Signs Temp 97.9 F 10/15/23 14:37 Pulse 64 10/15/23 14:37 Resp 17 10/15/23 14:37 BP 146/69 10/15/23 14:37 Pulse Ox 95 10/15/23 14:37 FiO2 Intake & Output 10/14/23 10/15/23 10/15/23 18:59 06:59 18:59 Intake Total 200 450 420 Output Total 325 Balance 200 125 420 Weight 63.503 kg 67 kg Intake: Oral 200 450 420 Output: Urine 325 Other: Voiding Method External Catheter External Catheter External Catheter # Voids 2 - Exam GENERAL: The patient is alert and oriented x3, ill appearance, nasal cannula in place, currently on room air oxygen Head exam was generally normal. There was no scleral icterus or corneal arcus. Mucous membranes were moist. HEENT: Pupils are round and equally reacting to light. EOMI. positive JVD is can be appreciated bilaterally CARDIOVASCULAR: S1 and S2 present. No murmurs, rubs, or gallops. There is a systolic ejection murmur grade 3/6 over the left precordium PULMONARY: Decreased breath sounds bilaterally, the patient has crackles in lung bases bilaterally and the patient diffuse rhonchi THERE WAS AN LUNG BASE BILATERALLY. ABDOMEN: Soft, nontender, nondistended, normoactive bowel sounds. No palpable o rganomegaly. MUSCULOSKELETAL: No joint swelling or deformity. EXTREMITIES: No cyanosis, clubbing, or pedal edema. NEUROLOGICAL: Gross neurological examination did not reveal any focal deficits. There is generalized motor weakness in all 4 extremities. - Labs CBC & Chem 7: 10/15/23 05:35 10/15/23 05:35 Labs: Abnormal Lab Results - Last 24 Hours (Table) 10/14/23 10/14/23 10/15/23 Range/Units 16:51 20:45 05:18 MCV (80.0-97.0) FL MCHC (32.0-37.0) g/dL BUN (9.0-27.0) mg/dL Est GFR (CKD-EPI) (>=60) BUN/Creatinine Ratio (12.00-20.00) Ratio Glucose (70-110) mg/dL POC Glucose (mg/dL) 352 H 348 H 322 H (70-110) mg/dL 10/15/23 10/15/23 10/15/23 Range/Units 05:35 05:35 11:32 MCV 99.8 H (80.0-97.0) FL MCHC 31.2 L (32.0-37.0) g/dL BUN 51.5 H (9.0-27.0) mg/dL Est GFR (CKD-EPI) 33 L (>=60) BUN/Creatinine Ratio 34.33 H (12.00-20.00) Ratio Glucose 303 H (70-110) mg/dL POC Glucose (mg/dL) 390 H (70-110) mg/dL Assessment and Plan Plan: Acute hypoxic respiratory failure, currently improved and the patient is currently on room air oxygen. Acute bronchospasm and wheezing congestion, improved with steroids. Rule out cardiac asthma. Rule out wheezing secondary to increased pulmonary vascular congestion and the patient obviously improving with accommodation of diuretics and steroids. Hypertension with poorly controlled blood pressure/hypertensive urgency, BP is under better control on today's evaluation CHF with valvular heart disease and moderate mitral regurgitation and severe tricuspid regurgitation and secondary pulmonary hypertension. 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 Blood pressures under better control. currently on Coreg 25 mg by mouth twice a day, Diovan 320 mg by mouth daily and the Procardia Zosyn and increased up to 60 mg by mouth daily. Cardiology has been involved and the patient is currently on a combination of Coreg 25 mg twice a day, Diovan 320 mg by mouth daily and nifedipine 30 mg by mouth daily Monitor fluid balance Monitor creatinine Titrate oxygen flow to maintain saturation above 90% Levemir insulin for blood sugar control Follow-up chest x-ray showed improvement in the pulmonary vessel congestion and pulmonary edema We'll continue to follow
[2023-10-15 16:59] LABS: Glucose,Whole Blood 310 mg/dL (70-110)
[2023-10-15 20:50] LABS: Glucose,Whole Blood 233 mg/dL (70-110)
[2023-10-15] MEDS: ATORVASTATIN 20 MG TAB PO SCH (21:19)
[2023-10-16 06:48] LABS: Glucose,Whole Blood 72 mg/dL (70-110)
[2023-10-16] MEDS: INSULIN ASPART (NovoLOG) 100 UNIT/ML VIAL SQ SCH ×7 (06:55→21:29)
[2023-10-16] MEDS: INSULIN DETEMIR (LEVEMIR) 100 UNIT/ML SYR SQ SCH (06:56)
[2023-10-16] MEDS: PANTOPRAZOLE 40 MG TABLET PO SCH (07:00)
[2023-10-16] MEDS: carvediloL 12.5 MG TAB PO SCH ×2 (07:46→18:11)
[2023-10-16] MEDS: ENOXAPARIN 30 MG/0.3 ML SYRINGE SQ SCH (08:50)
[2023-10-16] MEDS: DOCUSATE 100 MG CAP PO SCH ×2 (08:50→21:24)
[2023-10-16] MEDS: POTASSIUM CHLORIDE ER 20 MEQ TAB.ER PO SCH ×2 (08:50→21:29)
[2023-10-16] MEDS: hydrALAZINE HCL 25 MG TAB PO SCH ×2 (08:50→18:11)
[2023-10-16] MEDS: ASPIRIN 81 MG PO SCH (08:50)
[2023-10-16] MEDS: DULoxetine HCL 60 MG CAPSULE.DR PO SCH ×2 (08:50→21:29)
[2023-10-16] MEDS: predniSONE 20 MG TAB PO SCH (08:50)
[2023-10-16] MEDS: FUROSEMIDE 40 MG TAB PO SCH ×2 (08:50→18:11)
[2023-10-16] MEDS: LIDOCAINE 4% PATCH TOPICAL SCH (08:50)
[2023-10-16] MEDS: guaiFENesin 600 MG TABLET.ER PO SCH ×2 (08:50→21:29)
[2023-10-16] MEDS: VALSARTAN 160 MG TAB PO SCH (09:41)
[2023-10-16] MEDS: rOPINIRole HCL 4 MG TABLET PO SCH ×2 (09:41→21:29)
[2023-10-16 10:09] LABS: Hypochromasia Slight; MCH 30.7 pg (25.0-35.0); MCHC 30.4 g/dL (31.0-37.0); MCV 101.1 fL (80.0-100.0); Macrocytosis Slight; Mean Platelet Volume 9.5; Platelet Count 179 k/uL (150-450); RBC 4.55 m/uL (3.80-5.40); RDW 14.5 % (11.5-15.5); WBC 10.7 k/uL (3.8-10.6)
[2023-10-16 10:18] LABS: African American GFR (CKD) 40 (>60 ml/min/1.73 sqM); Anion Gap 2 mmol/L; Blood Urea Nitrogen 69 mg/dL (7-17); Calcium 9.6 mg/dL (8.4-10.2); Carbon Dioxide 37 mmol/L (22-30); Chloride 102 mmol/L (98-107); Glucose 61 mg/dL (74-99); Non-African American GFR(CKD) 35 (>60 ml/min/1.73 sqM); Potassium 4.9 mmol/L (3.5-5.1); Sodium 141 mmol/L (137-145)
[2023-10-16 12:00] LABS: Glucose,Whole Blood 122 mg/dL (70-110)
--- NOTE | 2023-10-16 12:17 | P.PN ---
Subjective Progress Note Date: 10/16/23 * 87 year old female past medical history of hypertension, hyperlipidemia, diabetes mellitus insulin requiring. * Patient currently resides at [facility] after she fell and broke her right leg in July. * Patient presented to the hospital due to shortness of breath that became significantly worse EKG sinus rhythm, left axis deviation Chest x-ray: Cardiomegaly, pulmonary vascular congestion and bilateral pleural effusions. * WBC 6.3, hemoglobin 12.5, platelet count 143. INR 1. Electrolytes normal. BUN 34 creatinine 0.87. AST 52, ALT 71, alkaline phosphatase 209. Troponin negative 2. ProBNP 1980. Lactic acid 0.9. * 10/10/2023: Patient seen and evaluated bedside, patient does complain of cough, pro-calcitonin negative, started on Mucinex, cardiology following, continue patient on diuresis, patient does have upper airway wheezing nebulization ordered as needed, discussed K plan with patient and daughter follow-up on renal profile * 10/11/2023: Patient seen and evaluated bedside, during my evaluation patient is awake and alert daughter at bedside, patient stated breathing has improved continue IV Lasix, CRP within normal limits do not suspect pneumonia continue to follow up on basic metabolic panel * 10/12/2023: Patient seen and evaluated bedside, during my assessment patient seen breathing treatment, overnight she had episode of shortness of breath. At this time continue patient on diuresis continue IV Lasix cardiac medications adjusted patient was noted to have episode of hypertension patient does have significant wheezing does have severe pulmonary hypertension we will consult pulmonary medicine as well * 10/13/2023: Patient seen and evaluated bedside, on my assessment patient is alert and oriented 3, family at bedside, patient states her breathing has improved. Continue diuresis potassium replaced, N-terminal pro BNP trending down 1390 appreciate input from pulmonary medicine * 10/14/2023: Patient seen and evaluated bedside, patient continues to remain on oxygen, however shortness of breath is improved continue on IV Lasix, cardiology following his appreciate input patient to go back to rehab , continue to monitor renal function * 10/15/2023: Patient seen and evaluated bedside, upon evaluation patient is alert and oriented 3, appears on room air, family at bedside beginning has improved blood glucose elevated, steroids and transitioned to oral, continue patient on as needed breathing treatments. Chest x-ray shows pulmonary vascular congestion slight improvement aeration noted * 10/16/2023: Patient seen and evaluated bedside, on my evaluation patient is a lert and oriented 3, patient is sleeping easily arousable however more lethargic. Patient does complain of cough with phlegm production. Continue patient on Lasix, will get chest x-ray tomorrow steroids transition to oral. Patient started on azithromycin PHYSICAL EXAMINATION: GENERAL: The patient is alert and oriented x3, ill appearance, on 3 L of oxygen through nasal cannula HEENT: Pupils are round and equally reacting to light. EOMI. CARDIOVASCULAR: S1 and S2 present. No murmurs, rubs, or gallops. PULMONARY: wheezing resolved, decreased breath sounds bilaterally ABDOMEN: Soft, nontender, nondistended, normoactive bowel sounds. No palpable organomegaly. MUSCULOSKELETAL: No joint swelling or deformity. EXTREMITIES: No cyanosis, clubbing, or pedal edema. NEUROLOGICAL: Gross neurological examination did not reveal any focal deficits. Objective - Vital Signs Vital signs: Vital Signs Temp 97.5 F L 10/16/23 07:17 Pulse 55 L 10/16/23 07:17 Resp 18 10/16/23 08:00 BP 157/72 10/16/23 07:17 Pulse Ox 97 10/16/23 07:17 FiO2 Intake & Output 10/15/23 10/16/23 10/16/23 18:59 06:59 18:59 Intake Total 620 Output Total 650 Balance 620 -650 Weight 116 kg Intake: Oral 620 Output: Urine 650 Other: Voiding Method External Catheter Diaper External Catheter # Voids 1 # Bowel Movements 1 - Labs CBC & Chem 7: 10/16/23 06:34 10/16/23 06:34 Labs: Abnormal Lab Results - Last 24 Hours (Table) 10/15/23 10/15/23 10/16/23 Range/Units 16:58 20:42 06:34 WBC 10.7 H (3.8-10.6) k/uL MCV 101.1 H (80.0-100.0) fL MCHC 30.4 L (31.0-37.0) g/dL Carbon Dioxide (22-30) mmol/L BUN (7-17) mg/dL Creatinine (0.52-1.04) mg/dL Glucose (74-99) mg/dL POC Glucose (mg/dL) 310 H 233 H (70-110) mg/dL 10/16/23 10/16/23 Range/Units 06:34 11:57 WBC (3.8-10.6) k/uL MCV (80.0-100.0) fL MCHC (31.0-37.0) g/dL Carbon Dioxide 37 H (22-30) mmol/L BUN 69 H (7-17) mg/dL Creatinine 1.36 H (0.52-1.04) mg/dL Glucose 61 L (74-99) mg/dL POC Glucose (mg/dL) 122 H (70-110) mg/dL Assessment and Plan Assessment: Assessment and plan * Acute congestive heart failure with preserved ejection fraction with severe pulmonary hypertension * Acute hypoxic respiratory failure * Valvular heart disease with severe mitral regurgitation, tricuspid regurgita tion * Hypertensive urgency * Hypertension * Diabetes mellitus type 2 * In regards to congestive heart failure, echocardiogram completed preserved ejection fraction, valvular heart disease and pulmonary hypertension noted. Continue patient on Lasix transitioned from IV to oral * In regards to diabetes mellitus Accu-Cheks before meals at bedtime continue patient on correctional insulin , continue Levemir monitor for hypoglycemia * In regards to hypertension continue Coreg, Lasix, hydralazine (INCREASED 10/11), valsartan, Procardia * Continue to monitor intake and output, patient had upper airway wheezing, breathing treatment is needed, appreciate input from pulmonary medicine, started on azithromycin to complete 5 day course * Will need physical therapy occupational therapy evaluation>> plan to discharge to subacute rehab Time with Patient: Greater than 30
[2023-10-16] MEDS: AZITHROMYCIN 500 MG TAB PO SCH (14:18)
--- NOTE | 2023-10-16 15:00 | P.PN ---
Subjective Progress Note Date: 10/16/23 87-year-old female patient was being seen in consultation for hypoxic respirato ry failure. The patient is known to have diabetes mellitus, hypertension and hyperlipidemia. The patient had a fall and she sustained a hip fracture and she required 6 weeks of hospitalization at [facility], and the patient had a complicated postoperative course. Following that, she was sent to rehabilitation. She was admitted briefly for an acute hypertensive urgency/emergency and she was discharged to be readmitted to our facility with worsening shortness of breath. At time of admission, the patient was found to have a proBNP level of 1980. Troponins were negative. The white cell count at 6.3 with a hemoglobin of 12.5 with a normal coagulation profile and normal electrolytes. The chest x-ray was consistent with CHF. Echocardiogram was done that showed a preserved LV function, moderate mitral regurgitation, moderate to severe tricuspid regurgitation and severe pulmonary hypertension with a PA pressure in the mid 60s. The patient is currently on IV Lasix 40 mg every 12 hours. She is producing adequate amount of urine output and she states that her shortness of breath is improving. She continues to have a congestive cough and during the hospitalization the patient was still having episodes of hypertension. Cardiology has been consulted and the patient was covered with a combination of Coreg 25 mg by mouth twice a day valsartan 325 mg in addition nifedipine 30 mg by mouth daily. No reported aspiration. No reported aspiration. No significant sputum production. Her cough is congested and she is unable to bring up much of sputum. She is still weak and quite debilitated. HER blood pressure has remained quite elevated during this current hospitalization. In fact, her systolic blood pressure was as high as 200 and the most recent BP is 192/91. The pro-calcitonin level is at 0.04. On today's evaluation of 10/13/2023, limited improvement since yesterday. The patient continues to have cough and congestion and chest tightness and wheeze. She remains on IV Lasix and she is receiving 40 mg every 12 hours. She is producing adequate amount of urine output. Her labs from today shows a BUN of 29 with creatinine of 0.8 and a sodium level is at 141. No new complaints otherwise for now. Oxygen requirements are at 3 L. In same time, the patient was having issues with elevated blood pressure. Procardia dose was increased up to 60 mg. Her most recent BP is down to 151/76. As such, her blood pressures under better control. A repeat chest x-ray was done today that showed low lung volumes and generalized hazy appearance representing atelectasis and there is also still evidence of pulmonary vessel congestion. On 10/14/2023, the patient is feeling much better. No significant cough or congestion. This has subsided significantly as the patient was started on systemic steroids. The patient is currently receiving Solu-Medrol 40 mg every 8 hours. No chest pain. No significant sputum production patient remains on oxygen 2 L/m nasal cannula. No confusion. No altered mentation. She remains on Lasix 40 mg IV every 12 hours. The fluid balance remains -1.6 L over the past 24 hours. The patient remains on 2 L of Oxymizer nasal cannula. We were able to wean her down to room air oxygen and pulse ox remained at 99%. 10/15/2023, the patient continues to improve. She is less short of breath. Cough and congestion also improving. She is currently on room air oxygen. Chest x-ray from yesterday showed improvement in volume status and there is some cardiomegaly. Meanwhile, the patient developed an acute kidney injury. Creatinine is up to 1.5. The patient was switched to oral Lasix 40 mg twice a day. There is a 51. Sodium is at 139, there is +9.3 with a hemoglobin of 15.1. No altered mentation. She is sitting up on a chair and she is coming comfortable. On 10/16/2023, slightly wheezy. No synovitis shortness of breath. No new complaints. He'll function improved compared to yesterday and the creatinine is down to 1.36 and the rest of the electrolytes show a sodium level of 141 with a potassium level of 4.9. She is on room air oxygen. The white cell count is 10.7 with a hemoglobin of 14. She remains on Ventolin/DuoNeb updrafts [id number]. She is also on Zithromax 5 mg by mouth daily. She was taken off the IV Solu-Medrol started on prednisone burst taper and currently she is taking 40 mg by mouth daily. In terms of blood sugar management, she remains on Levemir insulin 25 units daily and NovoLog 5 units with meals and a sliding scale coverage patient remains on Lasix 40 mg by mouth twice a day. Objective - Vital Signs Vital signs: Vital Signs Temp 97.5 F L 10/16/23 07:17 Pulse 55 L 10/16/23 07:17 Resp 18 10/16/23 07:17 BP 157/72 10/16/23 07:17 Pulse Ox 97 10/16/23 07:17 FiO2 Intake & Output 10/15/23 10/16/23 10/16/23 18:59 06:59 18:59 Intake Total 620 Output Total 650 Balance 620 -650 Weight 116 kg Intake: Oral 620 Output: Urine 650 Other: Voiding Method External Catheter Diaper External Catheter # Voids 1 # Bowel Movements 1 - Exam GENERAL: The patient is alert and oriented x3, ill appearance, nasal cannula in place, currently on room air oxygen Head exam was generally normal. There was no scleral icterus or corneal arcus. Mucous membranes were moist. HEENT: Pupils are round and equally reacting to light. EOMI. positive JVD is can be appreciated bilaterally CARDIOVASCULAR: S1 and S2 present. No murmurs, rubs, or gallops. There is a systolic ejection murmur grade 3/6 over the left precordium PULMONARY: Decreased breath sounds bilaterally, the patient has crackles in lung bases bilaterally and the patient diffuse rhonchi THERE WAS AN LUNG BASE BILATERALLY. ABDOMEN: Soft, nontender, nondistended, normoactive bowel sounds. No palpable organomegaly. MUSCULOSKELETAL: No joint swelling or deformity. EXTREMITIES: No cyanosis, clubbing, or pedal edema. NEUROLOGICAL: Gross neurological examination did not reveal any focal deficits. There is generalized motor weakness in all 4 extremities. - Labs CBC & Chem 7: 10/16/23 06:34 10/16/23 06:34 Labs: Abnormal Lab Results - Last 24 Hours (Table) 10/15/23 10/15/23 10/15/23 Range/Units 05:35 05:35 11:32 WBC (3.8-10.6) k/uL MCV 99.8 H (80.0-97.0) FL MCHC 31.2 L (32.0-37.0) g/dL Carbon Dioxide (22-30) mmol/L BUN 51.5 H (9.0-27.0) mg/dL Creatinine (0.52-1.04) mg/dL Est GFR (CKD-EPI) 33 L (>=60) BUN/Creatinine Ratio 34.33 H (12.00-20.00) Ratio Glucose 303 H (70-110) mg/dL POC Glucose (mg/dL) 390 H (70-110) mg/dL 10/15/23 10/15/23 10/16/23 Range/Units 16:58 20:42 06:34 WBC 10.7 H (3.8-10.6) k/uL MCV 101.1 H (80.0-97.0) FL MCHC 30.4 L (32.0-37.0) g/dL Carbon Dioxide (22-30) mmol/L BUN (9.0-27.0) mg/dL Creatinine (0.52-1.04) mg/dL Est GFR (CKD-EPI) (>=60) BUN/Creatinine Ratio (12.00-20.00) Ratio Glucose (70-110) mg/dL POC Glucose (mg/dL) 310 H 233 H (70-110) mg/dL 10/16/23 Range/Units 06:34 WBC (3.8-10.6) k/uL MCV (80.0-97.0) FL MCHC (32.0-37.0) g/dL Carbon Dioxide 37 H (22-30) mmol/L BUN 69 H (9.0-27.0) mg/dL Creatinine 1.36 H (0.52-1.04) mg/dL Est GFR (CKD-EPI) (>=60) BUN/Creatinine Ratio (12.00-20.00) Ratio Glucose 61 L (70-110) mg/dL POC Glucose (mg/dL) (70-110) mg/dL Assessment and Plan Plan: Acute hypoxic respiratory failure, currently improved and the patient is currently on room air oxygen. Acute bronchospasm and wheezing congestion, improved with steroids. Rule out cardiac asthma. Rule out wheezing secondary to increased pulmonary vascular congestion and the patient obviously improving with accommodation of diuretics and steroids. Hypertension with poorly controlled blood pressure/hypertensive urgency, BP is under better control on today's evaluation CHF with valvular heart disease and moderate mitral regurgitation and severe tricuspid regurgitation and secondary pulmonary hypertension. 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 heart failure Hypertension Hyperlipidemia Diabetes mellitus type 2 Fall with a hip fracture requiring a prolonged hospitalization in [facility] Generalized weakness and chronic debility secondary to above Acute kidney injury secondary to diuresis Plan Clinically stable and continues to improve Continue the prednisone burst taper The patient is currently on oral Lasix and will monitor renal function, currently on 40 mg Lasix twice a day Creatinine is improved compared to yesterday The patient's oxygenation is improved and the patient is currently on room air oxygen. Blood pressures under better control. currently on Coreg 25 mg by mouth twice a day, Diovan 320 mg by mouth daily and the Procardia Zosyn and increased up to 60 mg by mouth daily. Cardiology has been involved and the patient is currently on a combination of Coreg 25 mg twice a day, Diovan 320 mg by mouth daily and nifedipine 30 mg by mouth daily Monitor fluid balance Monitor creatinine Titrate oxygen flow to maintain saturation above 90% Levemir insulin for blood sugar control Follow-up chest x-ray showed improvement in the pulmonary vessel congestion and pulmonary edema We'll continue to follow
[2023-10-16 17:08] LABS: Glucose,Whole Blood 276 mg/dL (70-110)
[2023-10-16] MEDS ORDERED: CHOLESTYRAMINE (WITH SUGAR) 4 GM PACKET PO PRN (20:41)
[2023-10-16 20:45] LABS: Glucose,Whole Blood 396 mg/dL (70-110)
[2023-10-16] MEDS ORDERED: SODIUM CHLORIDE 0.9% 1,000 ML IV SCH (20:45)
[2023-10-16] MEDS: ATORVASTATIN 20 MG TAB PO SCH (21:29)
[2023-10-16] MEDS: FERROUS SULFATE 325 MG TAB PO SCH (21:29)
[2023-10-17] MEDS: hydrALAZINE HCL 25 MG TAB PO SCH ×3 (00:55→16:57)
[2023-10-17 06:16] LABS: Glucose,Whole Blood 193 mg/dL (70-110)
[2023-10-17] MEDS: PANTOPRAZOLE 40 MG TABLET PO SCH (06:59)
[2023-10-17] MEDS: INSULIN DETEMIR (LEVEMIR) 100 UNIT/ML SYR SQ SCH (06:59)
[2023-10-17] MEDS: carvediloL 12.5 MG TAB PO SCH ×2 (06:59→16:57)
[2023-10-17] MEDS: INSULIN ASPART (NovoLOG) 100 UNIT/ML VIAL SQ SCH ×7 (07:00→22:07)
[2023-10-17 07:26] LABS: African American GFR (CKD) 51 (>60 ml/min/1.73 sqM); Anion Gap 2 mmol/L; Blood Urea Nitrogen 70 mg/dL (7-17); C Reactive Protein 0.9 mg/dL (<1.0); Calcium 9.3 mg/dL (8.4-10.2); Carbon Dioxide 33 mmol/L (22-30); Chloride 104 mmol/L (98-107); Glucose 187 mg/dL (74-99); Non-African American GFR(CKD) 45 (>60 ml/min/1.73 sqM); Potassium 4.7 mmol/L (3.5-5.1); Sodium 139 mmol/L (137-145)
[2023-10-17 07:32] LABS: NT-Pro-B-Type Natriuretic Pept 857 pg/mL
--- NOTE | 2023-10-17 08:42 | XR ---
EXAMINATION TYPE: XR chest 1V portable DATE OF EXAM: 10/17/2023 COMPARISON: 10/11/2023 HISTORY: CHF TECHNIQUE: Single frontal view of the chest is obtained. FINDINGS: As on the prior study, there is pulmonary vascular congestion and mild interstitial edema. Heart is not grossly enlarged. There is no pleural effusion or pneumothorax. There is marked degenerative change of the right glenoh umeral joint otherwise the osseous structures are intact. IMPRESSION: 1. Findings consistent with mild CHF. 2. 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
[2023-10-17] MEDS: AZITHROMYCIN 500 MG TAB PO SCH (09:47)
[2023-10-17] MEDS: DOCUSATE 100 MG CAP PO SCH ×2 (09:47→22:07)
[2023-10-17] MEDS: POTASSIUM CHLORIDE ER 20 MEQ TAB.ER PO SCH ×2 (09:47→22:07)
[2023-10-17] MEDS: predniSONE 20 MG TAB PO SCH (09:47)
[2023-10-17] MEDS: ASPIRIN 81 MG PO SCH (09:47)
[2023-10-17] MEDS: DULoxetine HCL 60 MG CAPSULE.DR PO SCH ×2 (09:47→22:07)
[2023-10-17] MEDS: guaiFENesin 600 MG TABLET.ER PO SCH ×2 (09:47→22:07)
[2023-10-17] MEDS: rOPINIRole HCL 4 MG TABLET PO SCH ×2 (09:48→22:07)
[2023-10-17] MEDS: VALSARTAN 160 MG TAB PO SCH (09:48)
[2023-10-17] MEDS: LIDOCAINE 4% PATCH TOPICAL SCH (09:49)
[2023-10-17] MEDS: ENOXAPARIN 30 MG/0.3 ML SYRINGE SQ SCH (09:49)
[2023-10-17 11:29] LABS: Glucose,Whole Blood 493 mg/dL (70-110)
--- NOTE | 2023-10-17 12:59 | P.PN ---
Subjective Progress Note Date: 10/17/23 87-year-old female patient was being seen in consultation for hypoxic respirato ry failure. The patient is known to have diabetes mellitus, hypertension and hyperlipidemia. The patient had a fall and she sustained a hip fracture and she required 6 weeks of hospitalization at [facility], and the patient had a complicated postoperative course. Following that, she was sent to rehabilitation. She was admitted briefly for an acute hypertensive urgency/emergency and she was discharged to be readmitted to our facility with worsening shortness of breath. At time of admission, the patient was found to have a proBNP level of 1980. Troponins were negative. The white cell count at 6.3 with a hemoglobin of 12.5 with a normal coagulation profile and normal electrolytes. The chest x-ray was consistent with CHF. Echocardiogram was done that showed a preserved LV function, moderate mitral regurgitation, moderate to severe tricuspid regurgitation and severe pulmonary hypertension with a PA pressure in the mid 60s. The patient is currently on IV Lasix 40 mg every 12 hours. She is producing adequate amount of urine output and she states that her shortness of breath is improving. She continues to have a congestive cough and during the hospitalization the patient was still having episodes of hypertension. Cardiology has been consulted and the patient was covered with a combination of Coreg 25 mg by mouth twice a day valsartan 325 mg in addition nifedipine 30 mg by mouth daily. No reported aspiration. No reported aspiration. No significant sputum production. Her cough is congested and she is unable to bring up much of sputum. She is still weak and quite debilitated. HER blood pressure has remained quite elevated during this current hospitalization. In fact, her systolic blood pressure was as high as 200 and the most recent BP is 192/91. The pro-calcitonin level is at 0.04. On today's evaluation of 10/13/2023, limited improvement since yesterday. The patient continues to have cough and congestion and chest tightness and wheeze. She remains on IV Lasix and she is receiving 40 mg every 12 hours. She is producing adequate amount of urine output. Her labs from today shows a BUN of 29 with creatinine of 0.8 and a sodium level is at 141. No new complaints otherwise for now. Oxygen requirements are at 3 L. In same time, the patient was having issues with elevated blood pressure. Procardia dose was increased up to 60 mg. Her most recent BP is down to 151/76. As such, her blood pressures under better control. A repeat chest x-ray was done today that showed low lung volumes and generalized hazy appearance representing atelectasis and there is also still evidence of pulmonary vessel congestion. On 10/14/2023, the patient is feeling much better. No significant cough or congestion. This has subsided significantly as the patient was started on systemic steroids. The patient is currently receiving Solu-Medrol 40 mg every 8 hours. No chest pain. No significant sputum production patient remains on oxygen 2 L/m nasal cannula. No confusion. No altered mentation. She remains on Lasix 40 mg IV every 12 hours. The fluid balance remains -1.6 L over the past 24 hours. The patient remains on 2 L of Oxymizer nasal cannula. We were able to wean her down to room air oxygen and pulse ox remained at 99%. 10/15/2023, the patient continues to improve. She is less short of breath. Cough and congestion also improving. She is currently on room air oxygen. Chest x-ray from yesterday showed improvement in volume status and there is some cardiomegaly. Meanwhile, the patient developed an acute kidney injury. Creatinine is up to 1.5. The patient was switched to oral Lasix 40 mg twice a day. There is a 51. Sodium is at 139, there is +9.3 with a hemoglobin of 15.1. No altered mentation. She is sitting up on a chair and she is coming comfortable. On 10/16/2023, slightly wheezy. No synovitis shortness of breath. No new complaints. He'll function improved compared to yesterday and the creatinine is down to 1.36 and the rest of the electrolytes show a sodium level of 141 with a potassium level of 4.9. She is on room air oxygen. The white cell count is 10.7 with a hemoglobin of 14. She remains on Ventolin/DuoNeb updrafts [id number]. She is also on Zithromax 5 mg by mouth daily. She was taken off the IV Solu-Medrol started on prednisone burst taper and currently she is taking 40 mg by mouth daily. In terms of blood sugar management, she remains on Levemir insulin 25 units daily and NovoLog 5 units with meals and a sliding scale coverage patient remains on Lasix 40 mg by mouth twice a day. 10/17/2023, no new complaints and the patient is denying having any respiratory difficulties. She is currently on oral Lasix 40 mg by mouth twice a day. She is also on prednisone burst taper. On 2 L of oxygen nasal cannula pulse ox 97%. Renal function continues to improve and the creatinine is down to 1.0 with a BUN of 70. Sodium level is at 139. Rest of the medications remain unchanged. She is to completing course of Zithromax 500 mg by mouth daily. Objective - Vital Signs Vital signs: Vital Signs Temp 97.7 F 10/17/23 08:00 Pulse 62 10/17/23 08:00 Resp 17 10/17/23 08:00 BP 124/69 10/17/23 08:00 Pulse Ox 97 10/17/23 08:40 FiO2 Intake & Output 10/16/23 10/17/23 10/17/23 18:59 06:59 18:59 Intake Total 440 Output Total 1200 Balance -1200 440 Weight 115 kg Intake: Oral 440 Output: Urine 1200 Other: Voiding Method Diaper Diaper External Catheter # Voids 1 1 # Bowel Movements 1 1 - Exam GENERAL: The patient is alert and oriented x3, ill appearance, nasal cannula in place, currently on room air oxygen Head exam was generally normal. There was no scleral icterus or corneal arcus. Mucous membranes were moist. HEENT: Pupils are round and equally reacting to light. EOMI. positive JVD is can be appreciated bilaterally CARDIOVASCULAR: S1 and S2 present. No murmurs, rubs, or gallops. There is a systolic ejection murmur grade 3/6 over the left precordium PULMONARY: Decreased breath sounds bilaterally, the patient has crackles in lung bases bilaterally and the patient diffuse rhonchi THERE WAS AN LUNG BASE BILATERALLY. ABDOMEN: Soft, nontender, nondistended, normoactive bowel sounds. No palpable organomegaly. MUSCULOSKELETAL: No joint swelling or deformity. EXTREMITIES: No cyanosis, clubbing, or pedal edema. NEUROLOGICAL: Gross neurological examination did not reveal any focal deficits. There is generalized motor weakness in all 4 extremities. - Labs CBC & Chem 7: 10/16/23 06:34 10/17/23 06:31 Labs: Abnormal Lab Results - Last 24 Hours (Table) 01/19/24 01/19/24 01/19/24 Range/Units 11:57 17:01 20:45 Carbon Dioxide (22-30) mmol/L BUN (7-17) mg/dL Creatinine (0.52-1.04) mg/dL Glucose (74-99) mg/dL POC Glucose (mg/dL) 122 H 276 H 396 H (70-110) mg/dL 10/17/23 10/17/23 Range/Units 06:14 06:31 Carbon Dioxide 33 H (22-30) mmol/L BUN 70 H (7-17) mg/dL Creatinine 1.11 H (0.52-1.04) mg/dL Glucose 187 H (74-99) mg/dL POC Glucose (mg/dL) 193 H (70-110) mg/dL Assessment and Plan Plan: Acute hypoxic respiratory failure, currently improved and the patient is currently ranging to room air on 2 L O2 nasal cannula. Acute bronchospasm and wheezing congestion, improved with steroids. Rule out cardiac asthma. Rule out wheezing secondary to increased pulmonary vascular congestion and the patient obviously improving with accommodation of diuretics and steroids. Hypertension with poorly controlled blood pressure/hypertensive urgency, BP is under better control on today's evaluation CHF with valvular heart disease and moderate mitral regurgitation and severe tri cuspid regurgitation and secondary pulmonary hypertension. 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 heart failure Hypertension Hyperlipidemia Diabetes mellitus type 2 Fall with a hip fracture requiring a prolonged hospitalization in [facility] Generalized weakness and chronic debility secondary to above Acute kidney injury secondary to diuresis Plan Currently on 2 L of oxygen by nasal cannula with pulse ox of 97% Clinically stable and continues to improve Continue the prednisone burst taper The patient is currently on oral Lasix 40 mg Lasix twice a day Creatinine is improved compared to yesterday The patient's oxygenation is stable Blood pressures under better control. currently on Coreg 25 mg by mouth twice a day, Diovan 320 mg by mouth daily and the Procardia 60 mg by mouth daily. Monitor fluid balance Monitor creatinine Titrate oxygen flow to maintain saturation above 90% Levemir insulin for blood sugar control Follow-up chest x-ray showed improvement in the pulmonary vessel congestion and pulmonary edema We'll continue to follow
[2023-10-17 13:03] LABS: HCT 42.2 % (37.2-46.3); HGB 13.4 g/dL (12.0-15.0); MCH 31.1 pg (27.0-32.0); MCHC 31.8 g/dL (32.0-37.0); MCV 97.9 FL (80.0-97.0); Mean Platelet Volume 12.3 FL (9.5-12.2); NRBC Per 100 WBC 0 X 10*3/uL (0.00-0.01); Platelet Count 166 X 10*3/uL (140-440); RBC 4.31 X 10*6/uL (4.10-5.20); RDW 14.7 % (11.5-14.5)
--- NOTE | 2023-10-17 13:16 | P.PN ---
Subjective Progress Note Date: 10/17/23 * 87 year old female past medical history of hypertension, hyperlipidemia, diabetes mellitus insulin requiring. * Patient currently resides at [facility] after she fell and broke her right leg in July. * Patient presented to the hospital due to shortness of breath that became significantly worse EKG sinus rhythm, left axis deviation Chest x-ray: Cardiomegaly, pulmonary vascular congestion and bilateral pleural effusions. * WBC 6.3, hemoglobin 12.5, platelet count 143. INR 1. Electrolytes normal. BUN 34 creatinine 0.87. AST 52, ALT 71, alkaline phosphatase 209. Troponin negative 2. ProBNP 1980. Lactic acid 0.9. * 10/10/2023: Patient seen and evaluated bedside, patient does complain of cough, pro-calcitonin negative, started on Mucinex, cardiology following, continue patient on diuresis, patient does have upper airway wheezing nebulization ordered as needed, discussed K plan with patient and daughter follow-up on renal profile * 10/11/2023: Patient seen and evaluated bedside, during my evaluation patient is awake and alert daughter at bedside, patient stated breathing has improved continue IV Lasix, CRP within normal limits do not suspect pneumonia continue to follow up on basic metabolic panel * 10/12/2023: Patient seen and evaluated bedside, during my assessment patient seen breathing treatment, overnight she had episode of shortness of breath. At this time continue patient on diuresis continue IV Lasix cardiac medications adjusted patient was noted to have episode of hypertension patient does have significant wheezing does have severe pulmonary hypertension we will consult pulmonary medicine as well * 10/13/2023: Patient seen and evaluated bedside, on my assessment patient is alert and oriented 3, family at bedside, patient states her breathing has improved. Continue diuresis potassium replaced, N-terminal pro BNP trending down 1390 appreciate input from pulmonary medicine * 10/14/2023: Patient seen and evaluated bedside, patient continues to remain on oxygen, however shortness of breath is improved continue on IV Lasix, cardiology following his appreciate input patient to go back to rehab , continue to monitor renal function * 10/15/2023: Patient seen and evaluated bedside, upon evaluation patient is alert and oriented 3, appears on room air, family at bedside beginning has improved blood glucose elevated, steroids and transitioned to oral, continue patient on as needed breathing treatments. Chest x-ray shows pulmonary vascular congestion slight improvement aeration noted * 10/16/2023: Patient seen and evaluated bedside, on my evaluation patient is a lert and oriented 3, patient is sleeping easily arousable however more lethargic. Patient does complain of cough with phlegm production. Continue patient on Lasix, will get chest x-ray tomorrow steroids transition to oral. Patient started on azithromycin * 10/17/2023: Patient seen and evaluated bedside on my assessment patient is alert and oriented 3, shortness of breath is improved continue to have hyperglycemia, dose of insulin increased, continue patient on Lasix IV fluids discontinued follow-up on renal function patient will need discharge to subacute rehab. CRP within normal limits , N-terminal proBNP 357 improving PHYSICAL EXAMINATION: GENERAL: The patient is alert and oriented x3, ill appearance, on 3 L of oxygen through nasal cannula HEENT: Pupils are round and equally reacting to light. EOMI. CARDIOVASCULAR: S1 and S2 present. No murmurs, rubs, or gallops. PULMONARY: wheezing resolved, decreased breath sounds bilaterally ABDOMEN: Soft, nontender, nondistended, normoactive bowel sounds. No palpable organomegaly. MUSCULOSKELETAL: No joint swelling or deformity. EXTREMITIES: No cyanosis, clubbing, or pedal edema. NEUROLOGICAL: Gross neurological examination did not reveal any focal deficits. Objective - Vital Signs Vital signs: Vital Signs Temp 97.7 F 10/17/23 08:00 Pulse 62 10/17/23 08:00 Resp 17 10/17/23 08:00 BP 118/60 10/17/23 11:52 Pulse Ox 97 10/17/23 08:40 FiO2 Intake & Output 10/16/23 10/17/23 10/17/23 18:59 06:59 18:59 Intake Total 440 Output Total 1200 Balance -1200 440 Weight 115 kg Intake: Oral 440 Output: Urine 1200 Other: Voiding Method Diaper Diaper External Catheter # Voids 1 1 # Bowel Movements 1 1 - Labs CBC & Chem 7: 10/17/23 06:31 10/17/23 06:31 Labs: Abnormal Lab Results - Last 24 Hours (Table) 10/16/23 10/16/23 10/17/23 Range/Units 17:01 20:45 06:14 MCV (80.0-97.0) FL MCHC (32.0-37.0) g/dL RDW (11.5-14.5) % MPV (9.5-12.2) FL Carbon Dioxide (22-30) mmol/L BUN (7-17) mg/dL Creatinine (0.52-1.04) mg/dL Glucose (74-99) mg/dL POC Glucose (mg/dL) 276 H 396 H 193 H (70-110) mg/dL 10/17/23 10/17/23 10/17/23 Range/Units 06:31 06:31 11:28 MCV 97.9 H (80.0-97.0) FL MCHC 31.8 L (32.0-37.0) g/dL RDW 14.7 H (11.5-14.5) % MPV 12.3 H (9.5-12.2) FL Carbon Dioxide 33 H (22-30) mmol/L BUN 70 H (7-17) mg/dL Creatinine 1.11 H (0.52-1.04) mg/dL Glucose 187 H (74-99) mg/dL POC Glucose (mg/dL) 493 H (70-110) mg/dL Assessment and Plan Assessment: Assessment and plan * Acute congestive heart failure with preserved ejection fraction with severe pulmonary hypertension * Acute hypoxic respiratory failure * Valvular heart disease with severe mitral regurgitation, tricuspid regurgitation * Hypertensive urgency * Hypertension * Diabetes mellitus type 2 * Diarrhea rule out infectious etiology * In regards to congestive heart failure, echocardiogram completed preserved ejection fraction, valvular heart disease and pulmonary hypertension noted. Continue patient on Lasix transitioned from IV to oral * In regards to diabetes mellitus Accu-Cheks before meals at bedtime continue patient on correctional insulin , continue Levemir monitor for hypoglycemia * In regards to hypertension continue Coreg, Lasix, hydralazine (INCREASED 10/11), valsartan, Procardia * Continue to monitor intake and output, patient had upper airway wheezing, breathing treatment is needed, appreciate input from pulmonary medicine, started on azithromycin to complete 3 day course * Will need physical therapy occupational therapy evaluation>> plan to discharge to subacute rehab
[2023-10-17 16:41] LABS: Glucose,Whole Blood 298 mg/dL (70-110)
[2023-10-17] MEDS: FUROSEMIDE 40 MG TAB PO SCH (16:57)
[2023-10-17 21:17] LABS: Glucose,Whole Blood 220 mg/dL (70-110)
[2023-10-17] MEDS: ATORVASTATIN 20 MG TAB PO SCH (22:07)
[2023-10-18] MEDS: hydrALAZINE HCL 25 MG TAB PO SCH ×3 (00:03→17:09)
[2023-10-18] MEDS ORDERED: DIPHENOX-ATROP 2.5-0.025 MG 1 EACH TAB PO PRN (01:44)
[2023-10-18 06:16] LABS: Glucose,Whole Blood 76 mg/dL (70-110)
[2023-10-18] MEDS: INSULIN ASPART (NovoLOG) 100 UNIT/ML VIAL SQ SCH ×8 (06:19→20:55)
[2023-10-18] MEDS: INSULIN DETEMIR (LEVEMIR) 100 UNIT/ML SYR SQ SCH (06:22)
[2023-10-18] MEDS: PANTOPRAZOLE 40 MG TABLET PO SCH (06:22)
[2023-10-18] MEDS: carvediloL 12.5 MG TAB PO SCH ×2 (06:22→17:10)
[2023-10-18 09:11] LABS: BUN/Creat Ratio 42.71 Ratio (12.00-20.00); Blood Urea Nitrogen 59.8 mg/dL (9.0-27.0); Calcium 9.5 mg/dL (8.7-10.3); Chloride 104 mmol/L (96-109); Glucose 92 mg/dL (70-110); Potassium 4.6 mmol/L (3.5-5.5); Sodium 143 mmol/L (135-145)
[2023-10-18] MEDS: LIDOCAINE 4% PATCH TOPICAL SCH (09:30)
[2023-10-18] MEDS: ASPIRIN 81 MG PO SCH (09:31)
[2023-10-18] MEDS: rOPINIRole HCL 4 MG TABLET PO SCH ×2 (09:31→21:28)
[2023-10-18] MEDS: AZITHROMYCIN 500 MG TAB PO SCH (09:31)
[2023-10-18] MEDS: DULoxetine HCL 60 MG CAPSULE.DR PO SCH ×2 (09:31→20:54)
[2023-10-18] MEDS: guaiFENesin 600 MG TABLET.ER PO SCH ×2 (09:31→20:55)
[2023-10-18] MEDS: ENOXAPARIN 30 MG/0.3 ML SYRINGE SQ SCH (09:31)
[2023-10-18] MEDS: VALSARTAN 160 MG TAB PO SCH (09:31)
[2023-10-18] MEDS: predniSONE 20 MG TAB PO SCH (09:32)
[2023-10-18] MEDS: POTASSIUM CHLORIDE ER 20 MEQ TAB.ER PO SCH ×2 (09:32→20:55)
[2023-10-18] MEDS: FUROSEMIDE 40 MG TAB PO SCH ×2 (09:32→17:10)
[2023-10-18] MEDS: DOCUSATE 100 MG CAP PO SCH ×2 (09:32→20:55)
[2023-10-18 09:45] LABS: HCT 43.5 % (37.2-46.3); HGB 13.5 g/dL (12.0-15.0); MCH 30.9 pg (27.0-32.0); MCV 99.5 FL (80.0-97.0); Mean Platelet Volume 12.7 FL (9.5-12.2); NRBC Per 100 WBC 0 X 10*3/uL (0.00-0.01); Platelet Count 158 X 10*3/uL (140-440); RBC 4.37 X 10*6/uL (4.10-5.20); RDW 14.6 % (11.5-14.5); WBC 9.74 X 10*3/uL (4.50-10.00)
[2023-10-18 11:41] LABS: Glucose,Whole Blood 174 mg/dL (70-110)
--- NOTE | 2023-10-18 11:59 | P.PN ---
Subjective Progress Note Date: 10/18/23 * 87 year old female past medical history of hypertension, hyperlipidemia, diabetes mellitus insulin requiring. * Patient currently resides at [facility] after she fell and broke her right leg in July. * Patient presented to the hospital due to shortness of breath that became significantly worse EKG sinus rhythm, left axis deviation Chest x-ray: Cardiomegaly, pulmonary vascular congestion and bilateral pleural effusions. * WBC 6.3, hemoglobin 12.5, platelet count 143. INR 1. Electrolytes normal. BUN 34 creatinine 0.87. AST 52, ALT 71, alkaline phosphatase 209. Troponin negative 2. ProBNP 1980. Lactic acid 0.9. * 10/10/2023: Patient seen and evaluated bedside, patient does complain of cough, pro-calcitonin negative, started on Mucinex, cardiology following, continue patient on diuresis, patient does have upper airway wheezing nebulization ordered as needed, discussed K plan with patient and daughter follow-up on renal profile * 10/11/2023: Patient seen and evaluated bedside, during my evaluation patient is awake and alert daughter at bedside, patient stated breathing has improved continue IV Lasix, CRP within normal limits do not suspect pneumonia continue to follow up on basic metabolic panel * 10/12/2023: Patient seen and evaluated bedside, during my assessment patient seen breathing treatment, overnight she had episode of shortness of breath. At this time continue patient on diuresis continue IV Lasix cardiac medications adjusted patient was noted to have episode of hypertension patient does have significant wheezing does have severe pulmonary hypertension we will consult pulmonary medicine as well * 10/13/2023: Patient seen and evaluated bedside, on my assessment patient is alert and oriented 3, family at bedside, patient states her breathing has improved. Continue diuresis potassium replaced, N-terminal pro BNP trending down 1390 appreciate input from pulmonary medicine * 10/14/2023: Patient seen and evaluated bedside, patient continues to remain on oxygen, however shortness of breath is improved continue on IV Lasix, cardiology following his appreciate input patient to go back to rehab , continue to monitor renal function * 10/15/2023: Patient seen and evaluated bedside, upon evaluation patient is alert and oriented 3, appears on room air, family at bedside beginning has improved blood glucose elevated, steroids and transitioned to oral, continue patient on as needed breathing treatments. Chest x-ray shows pulmonary vascular congestion slight improvement aeration noted * 10/16/2023: Patient seen and evaluated bedside, on my evaluation patient is a lert and oriented 3, patient is sleeping easily arousable however more lethargic. Patient does complain of cough with phlegm production. Continue patient on Lasix, will get chest x-ray tomorrow steroids transition to oral. Patient started on azithromycin * 10/17/2023: Patient seen and evaluated bedside on my assessment patient is alert and oriented 3, shortness of breath is improved continue to have hyperglycemia, dose of insulin increased, continue patient on Lasix IV fluids discontinued follow-up on renal function patient will need discharge to subacute rehab. CRP within normal limits , N-terminal proBNP 357 improving * 10/18/2023: Patient seen and evaluated at bedside, follow-up blood work reviewed, patient is back on Lasix, prednisone tapered down to 20 mg daily for additional 2 days, continue to monitor for hypoglycemia discharge to subacute rehab within the next 24 hours depending on insurance/facility. Stool C diff checked that was negative. Patient started on as needed Lomotil for diarrhea. PHYSICAL EXAMINATION: GENERAL: The patient is alert and oriented x3, ill appearance, on 3 L of oxygen through nasal cannula HEENT: Pupils are round and equally reacting to light. EOMI. CARDIOVASCULAR: S1 and S2 present. No murmurs, rubs, or gallops. PULMONARY: wheezing resolved, decreased breath sounds bilaterally ABDOMEN: Soft, nontender, nondistended, normoactive bowel sounds. No palpable organomegaly. MUSCULOSKELETAL: No joint swelling or deformity. EXTREMITIES: No cyanosis, clubbing, or pedal edema. NEUROLOGICAL: Gross neurological examination did not reveal any focal deficits. Objective - Vital Signs Vital signs: Vital Signs Temp 97.7 F 10/17/23 19:31 Pulse 59 L 10/18/23 00:02 Resp 20 10/17/23 19:31 BP 132/59 10/18/23 00:02 Pulse Ox 96 10/17/23 19:31 FiO2 Intake & Output 10/17/23 10/17/23 10/18/23 06:59 18:59 06:59 Intake Total 440 Balance 440 Weight 115 kg Intake: Oral 440 Other: Voiding Method Diaper Diaper Diaper External Catheter External Catheter # Voids 1 # Bowel Movements 1 - Labs CBC & Chem 7: 10/18/23 06:36 10/18/23 06:36 Labs: Abnormal Lab Results - Last 24 Hours (Table) 10/17/23 10/17/23 10/17/23 Range/Units 06:14 06:31 06:31 MCV 97.9 H (80.0-97.0) FL MCHC 31.8 L (32.0-37.0) g/dL RDW 14.7 H (11.5-14.5) % MPV 12.3 H (9.5-12.2) FL Carbon Dioxide 33 H (22-30) mmol/L BUN 70 H (7-17) mg/dL Creatinine 1.11 H (0.52-1.04) mg/dL Glucose 187 H (74-99) mg/dL POC Glucose (mg/dL) 193 H (70-110) mg/dL 10/17/23 10/17/23 10/17/23 Range/Units 11:28 16:31 21:15 MCV (80.0-97.0) FL MCHC (32.0-37.0) g/dL RDW (11.5-14.5) % MPV (9.5-12.2) FL Carbon Dioxide (22-30) mmol/L BUN (7-17) mg/dL Creatinine (0.52-1.04) mg/dL Glucose (74-99) mg/dL POC Glucose (mg/dL) 493 H 298 H 220 H (70-110) mg/dL Assessment and Plan Assessment: Assessment and plan * Acute congestive heart failure with preserved ejection fraction with severe pulmonary hypertension * Acute hypoxic respiratory failure * Valvular heart disease with severe mitral regurgitation, tricuspid regurgitation * Hypertensive urgency * Hypertension * Diabetes mellitus type 2 * Diarrhea ruled out infectious etiology * In regards to congestive heart failure, echocardiogram completed preserved ejection fraction, valvular heart disease and pulmonary hypertension noted. Continue patient on Lasix transitioned from IV to oral * In regards to diabetes mellitus Accu-Cheks before meals at bedtime continue patient on correctional insulin , continue Levemir monitor for hypoglycemia * In regards to hypertension continue Coreg, Lasix, hydralazine (INCREASED 10/11), valsartan, Procardia * Continue to monitor intake and output, patient had upper airway wheezing, breathing treatment is needed, appreciate input from pulmonary medicine,Was started on azithromycin to complete 3 day course, received IV Solu-Medrol was weaned down to prednisone taper dose 40 mg followed by 20 mg x 2 days * Will need physical therapy occupational therapy evaluation>> plan to discharge to subacute rehab 10/19/23 Time with Patient: Greater than 30
--- NOTE | 2023-10-18 14:08 | P.PN ---
Subjective Progress Note Date: 10/18/23 87-year-old female patient was being seen in consultation for hypoxic respirato ry failure. The patient is known to have diabetes mellitus, hypertension and hyperlipidemia. The patient had a fall and she sustained a hip fracture and she required 6 weeks of hospitalization at [facility], and the patient had a complicated postoperative course. Following that, she was sent to rehabilitation. She was admitted briefly for an acute hypertensive urgency/emergency and she was discharged to be readmitted to our facility with worsening shortness of breath. At time of admission, the patient was found to have a proBNP level of 1980. Troponins were negative. The white cell count at 6.3 with a hemoglobin of 12.5 with a normal coagulation profile and normal electrolytes. The chest x-ray was consistent with CHF. Echocardiogram was done that showed a preserved LV function, moderate mitral regurgitation, moderate to severe tricuspid regurgitation and severe pulmonary hypertension with a PA pressure in the mid 60s. The patient is currently on IV Lasix 40 mg every 12 hours. She is producing adequate amount of urine output and she states that her shortness of breath is improving. She continues to have a congestive cough and during the hospitalization the patient was still having episodes of hypertension. Cardiology has been consulted and the patient was covered with a combination of Coreg 25 mg by mouth twice a day valsartan 325 mg in addition nifedipine 30 mg by mouth daily. No reported aspiration. No reported aspiration. No significant sputum production. Her cough is congested and she is unable to bring up much of sputum. She is still weak and quite debilitated. HER blood pressure has remained quite elevated during this current hospitalization. In fact, her systolic blood pressure was as high as 200 and the most recent BP is 192/91. The pro-calcitonin level is at 0.04. On today's evaluation of 10/13/2023, limited improvement since yesterday. The patient continues to have cough and congestion and chest tightness and wheeze. She remains on IV Lasix and she is receiving 40 mg every 12 hours. She is producing adequate amount of urine output. Her labs from today shows a BUN of 29 with creatinine of 0.8 and a sodium level is at 141. No new complaints otherwise for now. Oxygen requirements are at 3 L. In same time, the patient was having issues with elevated blood pressure. Procardia dose was increased up to 60 mg. Her most recent BP is down to 151/76. As such, her blood pressures under better control. A repeat chest x-ray was done today that showed low lung volumes and generalized hazy appearance representing atelectasis and there is also still evidence of pulmonary vessel congestion. On 10/14/2023, the patient is feeling much better. No significant cough or congestion. This has subsided significantly as the patient was started on systemic steroids. The patient is currently receiving Solu-Medrol 40 mg every 8 hours. No chest pain. No significant sputum production patient remains on oxygen 2 L/m nasal cannula. No confusion. No altered mentation. She remains on Lasix 40 mg IV every 12 hours. The fluid balance remains -1.6 L over the past 24 hours. The patient remains on 2 L of Oxymizer nasal cannula. We were able to wean her down to room air oxygen and pulse ox remained at 99%. 10/15/2023, the patient continues to improve. She is less short of breath. Cough and congestion also improving. She is currently on room air oxygen. Chest x-ray from yesterday showed improvement in volume status and there is some cardiomegaly. Meanwhile, the patient developed an acute kidney injury. Creatinine is up to 1.5. The patient was switched to oral Lasix 40 mg twice a day. There is a 51. Sodium is at 139, there is +9.3 with a hemoglobin of 15.1. No altered mentation. She is sitting up on a chair and she is coming comfortable. On 10/16/2023, slightly wheezy. No synovitis shortness of breath. No new complaints. He'll function improved compared to yesterday and the creatinine is down to 1.36 and the rest of the electrolytes show a sodium level of 141 with a potassium level of 4.9. She is on room air oxygen. The white cell count is 10.7 with a hemoglobin of 14. She remains on Ventolin/DuoNeb updrafts [id number]. She is also on Zithromax 5 mg by mouth daily. She was taken off the IV Solu-Medrol started on prednisone burst taper and currently she is taking 40 mg by mouth daily. In terms of blood sugar management, she remains on Levemir insulin 25 units daily and NovoLog 5 units with meals and a sliding scale coverage patient remains on Lasix 40 mg by mouth twice a day. 10/17/2023, no new complaints and the patient is denying having any respiratory difficulties. She is currently on oral Lasix 40 mg by mouth twice a day. She is also on prednisone burst taper. On 2 L of oxygen nasal cannula pulse ox 97%. Renal function continues to improve and the creatinine is down to 1.0 with a BUN of 70. Sodium level is at 139. Rest of the medications remain unchanged. She is to completing course of Zithromax 500 mg by mouth daily. On 10/18/2023, the patient room air oxygen. The patient is on Lasix 40 mg by mouth twice a day and is on burst taper. Diabetes under good control. No signs of any respiratory distress. She is currently on 94% pulse ox at room air oxygen. Cough and congestion is improved. She remains afebrile. No other significant events over the past 24 hours. No confusion. No altered mentation. The blood work from today was reviewed. BUN is a 59 with a creatinine of 1.4. Sodium levels of 143. The lites echoes at 9.7 with a hemoglobin of 15.5. Objective - Vital Signs Vital signs: Vital Signs Temp 97.8 F 10/18/23 07:32 Pulse 60 10/18/23 07:32 Resp 16 10/18/23 07:32 BP 125/74 10/18/23 07:32 Pulse Ox 94 L 10/18/23 08:05 FiO2 Intake & Output 10/17/23 10/18/23 10/18/23 18:59 06:59 18:59 Intake Total 440 Balance 440 Intake: Oral 440 Other: Voiding Method Diaper Diaper External Catheter # Voids 1 - Exam GENERAL: The patient is alert and oriented x3, ill appearance, nasal cannula in place, currently on room air oxygen Head exam was generally normal. There was no scleral icterus or corneal arcus. Mucous membranes were moist. HEENT: Pupils are round and equally reacting to light. EOMI. positive JVD is can be appreciated bilaterally CARDIOVASCULAR: S1 and S2 present. No murmurs, rubs, or gallops. There is a systolic ejection murmur grade 3/6 over the left precordium PULMONARY: Decreased breath sounds bilaterally, the patient has crackles in lung bases bilaterally and the patient diffuse rhonchi THERE WAS AN LUNG BASE BILATERALLY. ABDOMEN: Soft, nontender, nondistended, normoactive bowel sounds. No palpable organomegaly. MUSCULOSKELETAL: No joint swelling or deformity. EXTREMITIES: No cyanosis, clubbing, or pedal edema. NEUROLOGICAL: Gross neurological examination did not reveal any focal deficits. There is generalized motor weakness in all 4 extremities. - Labs CBC & Chem 7: 10/18/23 06:36 10/18/23 06:36 Labs: Abnormal Lab Results - Last 24 Hours (Table) 10/17/23 10/17/23 10/17/23 Range/Units 06:31 11:28 16:31 MCV 97.9 H (80.0-97.0) FL MCHC 31.8 L (32.0-37.0) g/dL RDW 14.7 H (11.5-14.5) % MPV 12.3 H (9.5-12.2) FL BUN (9.0-27.0) mg/dL Est GFR (CKD-EPI) (>=60) BUN/Creatinine Ratio (12.00-20.00) Ratio POC Glucose (mg/dL) 493 H 298 H (70-110) mg/dL 10/17/23 10/18/23 10/18/23 Range/Units 21:15 06:36 06:36 MCV 99.5 H (80.0-97.0) FL MCHC 31.0 L (32.0-37.0) g/dL RDW 14.6 H (11.5-14.5) % MPV 12.7 H (9.5-12.2) FL BUN 59.8 H (9.0-27.0) mg/dL Est GFR (CKD-EPI) 36 L (>=60) BUN/Creatinine Ratio 42.71 H (12.00-20.00) Ratio POC Glucose (mg/dL) 220 H (70-110) mg/dL Assessment and Plan Plan: Acute hypoxic respiratory failure, currently improved and the patient is currently ranging to room air on 2 L O2 nasal cannula. This morning, the patient on room air oxygen Acute bronchospasm and wheezing congestion, improved with steroids. Rule out cardiac asthma. Rule out wheezing secondary to increased pulmonary vascular congestion and the patient obviously improving with accommodation of diuretics and steroids. Hypertension with poorly controlled blood pressure/hypertensive urgency, BP is under better control on today's evaluation CHF with valvular heart disease and moderate mitral regurgitation and severe tricuspid regurgitation and secondary pulmonary hypertension. 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 currently on Coreg 25 mg by mouth twice a day, Diovan 320 mg by mouth daily and the Procardia 60 mg by mouth daily. Monitor fluid balance Monitor creatinine Titrate oxygen flow to maintain saturation above 90% Levemir insulin for blood sugar control Follow-up chest x-ray showed improvement in the pulmonary vessel congestion and pulmonary edema We'll continue to follow Possible home tomorrow
[2023-10-18 16:44] LABS: Glucose,Whole Blood 122 mg/dL (70-110)
[2023-10-18 20:13] LABS: Glucose,Whole Blood 219 mg/dL (70-110)
[2023-10-18] MEDS: ATORVASTATIN 20 MG TAB PO SCH (20:55)
[2023-10-18] MEDS: FERROUS SULFATE 325 MG TAB PO SCH (20:55)
[2023-10-19] MEDS: hydrALAZINE HCL 25 MG TAB PO SCH ×3 (00:30→15:45)
[2023-10-19 06:11] LABS: Glucose,Whole Blood 118 mg/dL (70-110)
[2023-10-19] MEDS: INSULIN ASPART (NovoLOG) 100 UNIT/ML VIAL SQ SCH ×4 (06:16→12:26)
[2023-10-19] MEDS: INSULIN DETEMIR (LEVEMIR) 100 UNIT/ML SYR SQ SCH (06:31)
[2023-10-19] MEDS: PANTOPRAZOLE 40 MG TABLET PO SCH (06:31)
[2023-10-19] MEDS: carvediloL 12.5 MG TAB PO SCH (06:31)
[2023-10-19 07:40] VITALS: TEMP 97.7
[2023-10-19] MEDS: LIDOCAINE 4% PATCH TOPICAL SCH (07:44)
[2023-10-19] MEDS: ENOXAPARIN 30 MG/0.3 ML SYRINGE SQ SCH (07:44)
[2023-10-19] MEDS: DOCUSATE 100 MG CAP PO SCH (07:45)
[2023-10-19] MEDS: guaiFENesin 600 MG TABLET.ER PO SCH (07:45)
[2023-10-19] MEDS: POTASSIUM CHLORIDE ER 20 MEQ TAB.ER PO SCH (07:45)
[2023-10-19] MEDS: rOPINIRole HCL 4 MG TABLET PO SCH (07:45)
[2023-10-19] MEDS: DULoxetine HCL 60 MG CAPSULE.DR PO SCH (07:45)
[2023-10-19] MEDS: FUROSEMIDE 40 MG TAB PO SCH ×2 (07:45→15:45)
[2023-10-19] MEDS: predniSONE 20 MG TAB PO SCH (07:45)
[2023-10-19] MEDS: ASPIRIN 81 MG PO SCH (07:45)
[2023-10-19] MEDS: VALSARTAN 160 MG TAB PO SCH (07:46)
[2023-10-19 10:10] VITALS: RESP 16
[2023-10-19 10:52] LABS: HCT 43.8 % (37.2-46.3); MCH 31.3 pg (27.0-32.0); MCV 97.8 FL (80.0-97.0); Mean Platelet Volume 12.2 FL (9.5-12.2); NRBC Per 100 WBC 0 X 10*3/uL (0.00-0.01); Platelet Count 171 X 10*3/uL (140-440); RBC 4.48 X 10*6/uL (4.10-5.20); RDW 14.7 % (11.5-14.5)
[2023-10-19 11:05] LABS: BUN/Creat Ratio 43.69 Ratio (12.00-20.00); Blood Urea Nitrogen 56.8 mg/dL (9.0-27.0); C Reactive Protein <0.30 mg/dL (0.00-0.80); Calcium 9.7 mg/dL (8.7-10.3); Carbon Dioxide 30.2 mmol/L (21.6-31.8); Chloride 101 mmol/L (96-109); Glucose 114 mg/dL (70-110); Potassium 4.6 mmol/L (3.5-5.5); Sodium 144 mmol/L (135-145)
[2023-10-19 11:36] LABS: Glucose,Whole Blood 396 mg/dL (70-110)
[2023-10-19 14:18] VITALS: BMI 25.7
--- NOTE | 2023-10-19 14:32 | P.DS ---
Providers Date of admission: 10/08/23 20:53 Attending physician: Elizabeth Newsome Consults: 10/12/23 13:06 Consult Physician Routine Consulting Provider: Patti Turner Consult Reason/Comments: Severe pulmonary hypertension respiratory failure Do you want consulting provider notified?: Yes Primary care physician: YOLANDA PARHAM MD Hospital Course: Final Diagnosis -Acute congestive heart failure with preserved ejection fraction with severe pulmonary hypertension -Acute hypoxic respiratory failure -Valvular heart disease with severe mitral regurgitation, tricuspid regurgitation -Hypertensive urgency -Hypertension -Diabetes mellitus type 2 -Steroid-induced hyperglycemia -Diarrhea ruled out infectious etiology Discharge Disposition Patient is stable for discharge home. Has been cleared by consultations. Patient is a return to [facility] for rehabilitation. Patient has been transition back to oral Lasix at 40 mg twice a day. Recommend to continue current antihypertensive medications and to monitor blood pressure closely and follow-up with Dr. Gruber movie shot camera operator on discharge. Patient is to see her PCP Dr. Yolanda Parham on discharge. Recommend to repeat labs in 2 to 3 days. Hospital course This is an 87-year-old female with medical history of hypertension hyperlipidemia insulin-dependent diabetic. Patient fell and broke her right leg in July and has been at [facility] in [place] for rehabilitation for the last 2 months. Patient came back to the hospital for shortness of breath. She had a normal white blood cell count, hemoglobin 12.5, INR was 1, electrolytes are within normal limits. Her troponin level was negative x 2 and a proBNP of 1980 on admission. She was admitted to the hospital for pulmonary vascular congestion and bilateral pleural effusions concerning for congestive heart failure. She was admitted to medicine with a cardiology consultation. There was also concern for possible underlying pneumonia which was ruled out. She was started on Mucinex for the cough. Patient was diuresed and her blood pressure medications were adjusted due to continued hypertension. Her proBNP was improving. And is now down to 357. Her procalcitonin level was 0.06. She was treated with steroids as well and will continue with an oral prednisone taper on discharge. Patient was having episodes of diarrhea there is possibly an underlying viral etiology her C. difficile was negative. Culture and sputum culture was negative. Patient has plans to discharge back to [facility] today. She denies any chest pain or shortness of breath no nausea vomiting or diarrhea not having any fever or chills. She would not require any antibiotics on discharge. She has been transition to oral Lasix. Renal function stable. Please see medication reconciliation for list of current medication. Thank you for allowing us to participate in the care of this patient. The impression and plan of care has been dictated by Rubi Glynn, Nurse Practitioner as directed. Dr. Bhargav MD I have performed a history and physical examination and medical decision making of this patient, discussed the same with the dictator, and agree with the dictators assessment and plan as written, documented as a scribe. Based on total visit time, I have performed more than 50% of this visit. Patient Condition at Discharge: Fair Plan - Discharge Summary New Discharge Prescriptions: New Furosemide [Lasix] 40 mg PO BID@0900,1600 tab Atorvastatin [Lipitor] 20 mg PO HS tab NIFEdipine XL [Procardia XL] 60 mg PO DAILY@12 tab Cholestyramine (with Sugar) [Questran Packet] 4 gm PO BID PRN packet PRN Reason: Diarrhea Albuterol Nebulized [Ventolin Nebulized] 2.5 mg INHALATION RT-Q4H PRN ml PRN Reason: Shortness Of Breath Or Wheezin predniSONE [Deltasone] 20 mg PO DAILY #2 tab Potassium Chloride ER [K-Dur 20] 40 meq PO BID tab INSULIN ASPART (NovoLOG) [NovoLOG (formulary)] 3 unit SQ AC-TID each Continue rOPINIRole HCL [Requip] 4 mg PO Q12H Pantoprazole [Protonix] 40 mg PO DAILY HYDROcodone/APAP 5-325MG [Brent 5-325] 1 tab PO Q4HR PRN PRN Reason: Pain polyethylene glycoL 3350 [Miralax] 17 gm PO DAILY carvediloL [Coreg] 25 mg PO BID PRN PRN Reason: hold if sbp <110 or HR <60 Lidocaine 5% Patch [Lidoderm 5% Patch] 1 patch TOPICAL DAILY Docusate [Colace] 100 mg PO Q12H DULoxetine HCL [Cymbalta] 60 mg PO BID Ergocalciferol (Vitamin D2) [Drisdol (50,000 Iu)] 1,250 mcg PO APPIAH INSULIN ASPART (NovoLOG) [NovoLOG (formulary)] See Protocol SQ ACHS 2 Days #0 Calcium Carbonate [Tums] 500 mg PO BID Aspirin EC [Ecotrin Low Dose] 81 mg PO DAILY hydrALAZINE HCL [Apresoline] 50 mg PO Q8H Ferrous Sulfate [Iron (65 MG Elemental)] 325 mg PO SUMOWEFR@2099 Losartan [Cozaar] 50 mg PO DAILY Changed Insulin Detemir [Levemir Flexpen] 25 units SQ DAILY #0 Discontinued Azithromycin [Zithromax Z Pack] See Taper PO DIRECTED cloNIDine HCL 0.2 mg PO Q8H PRN PRN Reason: Hypertension cefTRIAXone [Rocephin] 1 gm IVPB DAILY Discharge Medication List Aspirin EC [Ecotrin Low Dose] 81 mg PO DAILY 10/08/23 [History] Calcium Carbonate [Tums] 500 mg PO BID 10/08/23 [History] DULoxetine HCL [Cymbalta] 60 mg PO BID 10/08/23 [History] Docusate [Colace] 100 mg PO Q12H 10/08/23 [History] Ergocalciferol (Vitamin D2) [Drisdol (50,000 Iu)] 1,250 mcg PO APPIAH 10/08/23 [History] Ferrous Sulfate [Iron (65 MG Elemental)] 325 mg PO SUMOWEFR@2100 10/08/23 [History] HYDROcodone/APAP 5-325MG [Brent 5-325] 1 tab PO Q4HR PRN 10/08/23 [History] Lidocaine 5% Patch [Lidoderm 5% Patch] 1 patch TOPICAL DAILY 10/08/23 [History] Losartan [Cozaar] 50 mg PO DAILY 10/08/23 [History] Pantoprazole [Protonix] 40 mg PO DAILY 10/08/23 [History] carvediloL [Coreg] 25 mg PO BID PRN 10/08/23 [History] hydrALAZINE HCL [Apresoline] 50 mg PO Q8H 10/08/23 [History] polyethylene glycoL 3350 [Miralax] 17 gm PO DAILY 10/08/23 [History] rOPINIRole HCL [Requip] 4 mg PO Q12H 10/08/23 [History] Albuterol Nebulized [Ventolin Nebulized] 2.5 mg INHALATION RT-Q4H PRN ml 10/19/23 [Rx] Atorvastatin [Lipitor] 20 mg PO HS tab 10/19/23 [Rx] Cholestyramine (with Sugar) [Questran Packet] 4 gm PO BID PRN packet 10/19/23 [Rx] Furosemide [Lasix] 40 mg PO BID@0900,1600 tab 10/19/23 [Rx] INSULIN ASPART (NovoLOG) [NovoLOG (formulary)] 3 unit SQ AC-TID each 10/19/23 [Rx] INSULIN ASPART (NovoLOG) [NovoLOG (formulary)] See Protocol SQ ACHS 2 Days #0 10/19/23 [Rx] Insulin Detemir [Levemir Flexpen] 25 units SQ DAILY #0 10/19/23 [Rx] NIFEdipine XL [Procardia XL] 60 mg PO DAILY@12 tab 10/19/23 [Rx] Potassium Chloride ER [K-Dur 20] 40 meq PO BID tab 10/19/23 [Rx] predniSONE [Deltasone] 20 mg PO DAILY #2 tab 10/19/23 [Rx] Follow up Appointment(s)/Referral(s): Rosa Florence, [NON-STAFF] - As Needed Reji Gruber MD [STAFF PHYSICIAN] - 1 Week (Office stated they will call patient with follow-up appointment.) YOLANDA PARHAM MD [Primary Care Provider] - 1-2 days ([facility] please call for follow-up appointment.) Ambulatory/Diagnostic Orders: Basic Metabolic Panel [LAB.AMB] Location: None Selected Complete Blood Count w/diff [LAB.AMB] Time Frame: 3 Days, Location: None Selected Discharge Disposition: TRANSFER TO SNF/ECF
[2023-10-19 15:57] VITALS: BP 123/69; PULSE 63
== END 2023-10-19 16:38 | DRG 291 ==
LOC: EC 19:15 → 4SSUR 20:53
PROVIDERS: ADMIT Hospitalist; ATTEND Hospitalist
DX: I11.0 Hypertensive heart disease with heart failure (principal); I50.31 Acute diastolic (congestive) heart failure; J18.9 Pneumonia, unspecified organism; J96.01 Acute respiratory failure with hypoxia; J44.0 Chronic obstructive pulmonary disease with (acute) lower respiratory infection; J44.1 Chronic obstructive pulmonary disease with (acute) exacerbation; N17.9 Acute kidney failure, unspecified; E78.5 Hyperlipidemia, unspecified; I08.1 Rheumatic disorders of both mitral and tricuspid valves; I16.0 Hypertensive urgency; R19.7 Diarrhea, unspecified; F41.9 Anxiety disorder, unspecified; F32.A Depression, unspecified; E11.65 Type 2 diabetes mellitus with hyperglycemia; T38.0X5A Adverse effect of glucocorticoids and synthetic analogues, initial encounter; I27.20 Pulmonary hypertension, unspecified; G25.81 Restless legs syndrome; M19.90 Unspecified osteoarthritis, unspecified site; Z79.4 Long term (current) use of insulin; Z79.82 Long term (current) use of aspirin; Z79.899 Other long term (current) drug therapy; Z90.710 Acquired absence of both cervix and uterus; Z87.01 Personal history of pneumonia (recurrent); Z91.81 History of falling
CPT/HCPCS: 36415; 71045; 71046; 80048; 80053; 83605; 83735; 83880; 84145; 84484; 85025; 85027; 85610; 85730; 86140; 87040; 87070; 87205; 87324; 87449; 93005; 93306; 94640; 94760; 96361; 96365; 96367; 96375; 99291

== ENCOUNTER 2023-11-02 19:29 | Inpatient (IN) | payer MEDICARE, BC ==
--- NOTE | 2023-11-02 19:40 | ED ---
General Adult HPI - General Source: patient, RN notes reviewed, old records reviewed <Mars Rivera - Last Filed: 11/02/23 20:55> <Brock Live - Last Filed: 11/02/23 22:11> - General Stated complaint: EDUARDA Time Seen by Provider: 11/02/23 19:30 - History of Present Illness Initial comments: This is an 88-year-old female who presents to the emergency department complaining of shortness of breath patient comes from a correction and they sent her in. Patient states it has been ongoing all day today and getting worse. Patient denies fever chills or cough or patient denies any chest pain or palpitation. Patient denies a history of CHF though it is in her records. Patient denies any COPD history. Patient denies any abdominal pain patient has any nausea vomiting. Patient denies any recent injury or trauma. (Mars Rivera) - Related Data Home Medications Medication Instructions Recorded Confirmed Docusate [Colace] 100 mg PO BID 10/08/23 11/02/23 Ergocalciferol (Vitamin D2) 1,250 mcg PO APPIAH 10/08/23 11/02/23 [Drisdol (50,000 Iu)] Ferrous Sulfate [Iron (65 MG 325 mg PO SUMOWEFR 10/08/23 11/02/23 Elemental)] carvediloL [Coreg] 25 mg PO BID 10/08/23 11/02/23 hydrALAZINE HCL [Apresoline] 50 mg PO TID 10/08/23 11/02/23 polyethylene glycoL 3350 [Miralax] 17 gm PO DAILY 10/08/23 11/02/23 Albuterol Sulfate [Albuterol 2 puff INHALATION RT-Q6H 11/02/23 11/02/23 Sulfate Hfa] Aspirin [Vazalore] 81 mg PO DAILY 11/02/23 11/02/23 Atorvastatin [Lipitor] 20 mg PO DAILY 11/02/23 11/02/23 Cholestyramine (with Sugar) 4 gm PO BID 11/02/23 11/02/23 [Questran Packet] DULoxetine HCL [Cymbalta] 60 mg PO BID 11/02/23 11/02/23 Furosemide [Lasix] 20 mg PO DAILY 11/02/23 11/02/23 Insulin Lispro [Insulin Lispro See Protocol SQ AC-TID 11/02/23 11/02/23 Kwikpen U-100] NIFEdipine XL [Procardia XL] 60 mg PO DAILY 11/02/23 11/02/23 Omeprazole 20 mg PO DAILY 11/02/23 11/02/23 rOPINIRole HCL [Requip] 4 mg PO BID 11/02/23 11/02/23 Previous Rx's Medication Instructions Recorded HYDROcodone/APAP 5-325MG [[place] 1 tab PO Q4HR PRN #4 tab 10/19/23 5-325] Insulin Detemir [Levemir Flexpen] 25 units SQ DAILY #0 10/19/23 Potassium Chloride ER [K-Dur 20] 40 meq PO BID tab 10/19/23 predniSONE [Deltasone] 20 mg PO DAILY #2 tab 10/19/23 Allergies Allergy/AdvReac Type Severity Reaction Status Date / Time No Known Allergies Allergy Verified 11/02/23 21:42 Review of Systems ROS Other: All systems not noted in ROS Statement are negative. <Mars Rivera - Last Filed: 11/02/23 20:55> ROS Other: All systems not noted in ROS Statement are negative. <Brock Live - Last Filed: 11/02/23 22:11> ROS Statement: Those systems with pertinent positive or pertinent negative responses have been documented in the HPI. Past Medical History Past Medical History: Heart Failure, Diabetes Mellitus, Hypertension, Pneumonia Additional Past Medical History / Comment(s): new CHF 09/2023 History of Any Multi-Drug Resistant Organisms: MRSA Past Surgical History: Hysterectomy Additional Past Surgical History / Comment(s): R hip, cataract sx Past Anesthesia/Blood Transfusion Reactions: No Reported Reaction Smoking Status: Never smoker Past Alcohol Use History: None Reported Past Drug Use History: None Reported <Mars Rivera - Last Filed: 11/02/23 20:55> General Exam <Mars Rivera - Last Filed: 11/02/23 20:55> - General Exam Comments Initial Comments: GENERAL: Patient is well-developed and well-nourished. Patient is nontoxic and well-h ydrated and is in mild distress. ENT: Neck is soft and supple. No significant lymphadenopathy is noted. Oropharynx is clear. Moist mucous membranes. Neck has full range of motion without eliciting any pain. EYES: The sclera were anicteric and conjunctiva were pink and moist. Extraocular move ments were intact and pupils were equal round and reactive to light. Eyelids were unremarkable. PULMONARY: Patient has crackles diffusely CARDIOVASCULAR: There is a regular rate and rhythm without any murmurs gallops or rubs. ABDOMEN: Soft and nontender with normal bowel sounds. No palpable organomegaly was noted. There is no palpable pulsatile mass. SKIN: Skin is clear with no lesions or rashes and otherwise unremarkable. NEUROLOGIC: Patient is alert and oriented x3. Cranial nerves II through XII are grossly intact. Motor and sensory are also intact. Normal speech, volume and content. Symmetrical smile. MUSCULOSKELETAL: Normal extremities with adequate strength and full range of motion. No lower extremity swelling or edema. No calf tenderness. LYMPHATICS: No significant lymphadenopathy is noted PSYCHIATRIC: Normal psychiatric evaluation. (Mars Rivera) Course Vital Signs 11/02/23 11/02/23 19:32 20:41 Temperature 96.9 F L Pulse Rate 64 63 Respiratory 22 18 Rate Blood Pressure 124/79 141/75 O2 Sat by Pulse 99 96 Oximetry EKG Findings - EKG Comments: EKG Findings:: Prominent T waves anteriorly - EKG Results: EKG: interpreted by ERMD, sinus rhythm (With sinus arrhythmia, rate 61 bpm) - Blocks, [place], Hypertrophy, ST Abn: AV and intraventricular conduction: right bundle branch block (fixed/intermittent, complete/incomplete) (Incomplete) QRS axis and voltage: left axis deviation (-30 to -90) Chamber hypertrophy or enlargement: only voltage criteria for left ventricular hypertrophy <Brock Live - Last Filed: 11/02/23 22:11> Medical Decision Making - Lab Data Result diagrams: 11/02/23 20:09 11/02/23 20:09 <Mars Rivera - Last Filed: 11/02/23 20:55> - Lab Data Result diagrams: 11/02/23 20:09 11/02/23 20:09 <Brock Live - Last Filed: 11/02/23 22:11> - Medical Decision Making Was pt. sent in by a medical professional or institution (, PA, CAMERA PERSON, urgent care, hospital, or correction...) When possible be specific @ -No Did you speak to anyone other than the patient for history (EMS, parent, family, police, friend...)? What history was obtained from this source @ -No Did you review nursing and triage notes (agree or disagree)? Why? @ -I reviewed and agree with nursing and triage notes Were old charts reviewed (outside hosp., previous admission, EMS record, old EKG, old radiological studies, urgent care reports/EKG's, correction records)? Report findings @ -I have reviewed prior charts and prior lab work. Differential Diagnosis (chest pain, altered mental status, abdominal pain women, abdominal pain men, vaginal bleeding, weakness, fever, dyspnea, syncope, headache, dizziness, GI bleed, back pain, seizure, CVA, palpatations, mental health, musculoskeletal)? @ -Differential Dyspnea: Coronary syndrome, arrhythmia, tamponade, asthma, COPD, pulmonary embolism, pneumonia, pneumothorax, pulmonary effusion, anaphylaxis, diabetic ketoacidosis, flailed chest, pulmonary contusion, diaphragmatic rupture, anemia, neuromuscular, this is not meant to be an all-inclusive list. EKG interpreted by me (3pts min.). @ -As above X-rays interpreted by me (1pt min.). @ -Chest x-ray shows pulmonary edema CT interpreted by me (1pt min.). @ -None done U/S interpreted by me (1pt. min.). @ -None done What testing was considered but not performed or refused? (CT, X-rays, U/S, labs)? Why? @ -None What meds were considered but not given or refused? Why? @ -None Did you discuss the management of the patient with other professionals (pr ofessionals i.e. , PA, CAMERA PERSON, lab, RT, psych nurse, director social service, industrial services worker, teacher, textile technical officer, case worker)? Give summary @ -I spoke with [facility] and they agreed admit the patient to the patient recommending orders Was smoking cessation discussed for >3mins.? @ -No Was critical care preformed (if so, how long)? @ -35 minutes Were there social determinants of health that impacted care today? How? (Homelessness, low income, unemployed, alcoholism, drug addiction, transport ation, low edu. Level, literacy, decrease access to med. care, [place] [facility], rehab)? @ -No Was there de-escalation of care discussed even if they declined (Discuss DNR or withdrawal of care, Hospice)? DNR status @ -No What co-morbidities impacted this encounter? (DM, HTN, Smoking, COPD, CAD, Cancer, CVA, ARF, Chemo, Hep., AIDS, mental health diagnosis, sleep apnea, morbid obesity)? @ -None Was patient admitted / discharged? Hospital course, mention meds given and route, prescriptions, significant lab abnormalities, going to OR and other pertinent info. @ -Patient's x-ray showed pulmonary edema patient received Lasix in the emergency department. Patient was placed on 4 L of oxygen. Undiagnosed new problem with uncertain prognosis? @ -No Drug Therapy requiring intensive monitoring for toxicity (Heparin, Nitro, Insulin, Cardizem)? @ -No Were any procedures done? @ -No Diagnosis/symptom? @ -Acute pulmonary edema Acute, or Chronic, or Acute on Chronic? @ -Acute Uncomplicated (without systemic symptoms) or Complicated (systemic symptoms)? @ -Complicated Side effects of treatment? @ -No Exacerbation, Progression, or Severe Exacerbation? @ -No Poses a threat to life or bodily function? How? (Chest pain, [place], [place], pneumonia, PE, COPD, DKA, ARF, appy, cholecystitis, CVA, Diverticulitis, Homicidal, Suicidal, threat to staff... and all critical care pts) @ -This can lead to hypoxia and end organ dysfunction (Mars Rivera) - Lab Data Lab Results 11/02/23 11/02/23 11/02/23 Range/Units 20:09 20:09 20:09 WBC 7.9 (3.8-10.6) k/uL RBC 3.85 (3.80-5.40) m/uL Hgb 12.2 (11.4-16.0) gm/dL Hct 38.0 (34.0-46.0) % MCV 98.7 (80.0-100.0) fL MCH 31.7 (25.0-35.0) pg MCHC 32.1 (31.0-37.0) g/dL RDW 15.0 (11.5-15.5) % Plt Count 117 L (150-450) k/uL MPV 10.4 Neutrophils % 94 % Lymphocytes % 4 % Monocytes % 2 % Eosinophils % 0 % Basophils % 0 % Neutrophils # 7.4 (1.3-7.7) k/uL Lymphocytes # 0.3 L (1.0-4.8) k/uL Monocytes # 0.1 (0-1.0) k/uL Eosinophils # 0.0 (0-0.7) k/uL Basophils # 0.0 (0-0.2) k/uL PT 9.8 L (10.0-12.5) sec INR 0.9 (<1.2) APTT 25.4 (22.0-30.0) sec Sodium 140 (137-145) mmol/L Potassium 6.7 H* (3.5-5.1) mmol/L Chloride 108 H (98-107) mmol/L Carbon Dioxide 26 (22-30) mmol/L Anion Gap 6 mmol/L BUN 48 H (7-17) mg/dL Creatinine 1.15 H (0.52-1.04) mg/dL Est GFR (CKD-EPI)AfAm 49 (>60 ml/min/1.73 sqM) Est GFR (CKD-EPI)NonAf 43 (>60 ml/min/1.73 sqM) Glucose 164 H (74-99) mg/dL Plasma Lactic Acid Luis M (0.7-2.0) mmol/L Calcium 9.5 (8.4-10.2) mg/dL Magnesium 2.0 (1.6-2.3) mg/dL Total Bilirubin 0.7 (0.2-1.3) mg/dL AST 109 H (14-36) U/L ALT 162 H (4-34) U/L Alkaline Phosphatase 253 H (38-126) U/L Troponin I (0.000-0.034) ng/mL NT-Pro-B Natriuret Pep 3420 pg/mL Total Protein 7.0 (6.3-8.2) g/dL Albumin 4.0 (3.5-5.0) g/dL Influenza Type A (PCR) (Not Detectd) Influenza Type B (PCR) (Not Detectd) RSV (PCR) (Not Detectd) SARS-CoV-2 (PCR) (Not Detectd) 11/02/23 11/02/23 11/02/23 Range/Units 20:15 20:15 20:15 WBC (3.8-10.6) k/uL RBC (3.80-5.40) m/uL Hgb (11.4-16.0) gm/dL Hct (34.0-46.0) % MCV (80.0-100.0) fL MCH (25.0-35.0) pg MCHC (31.0-37.0) g/dL RDW (11.5-15.5) % Plt Count (150-450) k/uL MPV Neutrophils % % Lymphocytes % % Monocytes % % Eosinophils % % Basophils % % Neutrophils # (1.3-7.7) k/uL Lymphocytes # (1.0-4.8) k/uL Monocytes # (0-1.0) k/uL Eosinophils # (0-0.7) k/uL Basophils # (0-0.2) k/uL PT (10.0-12.5) sec INR (<1.2) APTT (22.0-30.0) sec Sodium (137-145) mmol/L Potassium (3.5-5.1) mmol/L Chloride (98-107) mmol/L Carbon Dioxide (22-30) mmol/L Anion Gap mmol/L BUN (7-17) mg/dL Creatinine (0.52-1.04) mg/dL Est GFR (CKD-EPI)AfAm (>60 ml/min/1.73 sqM) Est GFR (CKD-EPI)NonAf (>60 ml/min/1.73 sqM) Glucose (74-99) mg/dL Plasma Lactic Acid Lusi M 1.3 (0.7-2.0) mmol/L Calcium (8.4-10.2) mg/dL Magnesium (1.6-2.3) mg/dL Total Bilirubin (0.2-1.3) mg/dL AST (14-36) U/L ALT (4-34) U/L Alkaline Phosphatase (38-126) U/L Troponin I <0.012 (0.000-0.034) ng/mL NT-Pro-B Natriuret Pep pg/mL Total Protein (6.3-8.2) g/dL Albumin (3.5-5.0) g/dL Influenza Type A (PCR) Detected A (Not Detectd) Influenza Type B (PCR) Not Detected (Not Detectd) RSV (PCR) Not Detected (Not Detectd) SARS-CoV-2 (PCR) Not Detected (Not Detectd) Critical Care Time Critical Care Time: Yes Total Critical Care Time: 35 <Mars Rivera - Last Filed: 11/02/23 20:55> Disposition Time of Disposition: 20:40 <Mars Rivera - Last Filed: 11/02/23 20:55> <Brock Live - Last Filed: 11/02/23 22:11> Clinical Impression: Acute pulmonary edema, Hyperkalemia Disposition: ADMITTED IP TO THIS HOSP
[2023-11-02 20:21] LABS: Basophils % (A) 0 %; Eosinophils % (A) 0 %; HGB 12.2 gm/dL (11.4-16.0); Lymphocytes # (A) 0.3 k/uL (1.0-4.8); Lymphocytes % (A) 4 %; MCH 31.7 pg (25.0-35.0); MCHC 32.1 g/dL (31.0-37.0); MCV 98.7 fL (80.0-100.0); Mean Platelet Volume 10.4; Monocytes # (A) 0.1 k/uL (0-1.0); Monocytes % (A) 2 %; Neutrophils # (A) 7.4 k/uL (1.3-7.7); Neutrophils % (A) 94 %; Platelet Count 117 k/uL (150-450); RBC 3.85 m/uL (3.80-5.40); WBC 7.9 k/uL (3.8-10.6)
[2023-11-02 20:30] LABS: ALT 162 U/L (4-34); AST 109 U/L (14-36); African American GFR (CKD) 49 (>60 ml/min/1.73 sqM); Alkaline Phosphatase 253 U/L (38-126); Anion Gap 6 mmol/L; Blood Urea Nitrogen 48 mg/dL (7-17); Calcium 9.5 mg/dL (8.4-10.2); Carbon Dioxide 26 mmol/L (22-30); Chloride 108 mmol/L (98-107); Glucose 164 mg/dL (74-99); Non-African American GFR(CKD) 43 (>60 ml/min/1.73 sqM); Sodium 140 mmol/L (137-145); Total Bilirubin 0.7 mg/dL (0.2-1.3)
[2023-11-02 20:33] LABS: INR 0.9 (<1.2); Partial Thromboplastin Time 25.4 sec (22.0-30.0); Prothrombin Time 9.8 sec (10.0-12.5)
[2023-11-02] MEDS: FUROSEMIDE 10 MG/ML 4 ML VIAL IV STA (20:36)
[2023-11-02 20:38] LABS: NT-Pro-B-Type Natriuretic Pept 3420 pg/mL; Potassium 6.7 mmol/L (3.5-5.1)
--- NOTE | 2023-11-02 21:03 | XR ---
EXAMINATION TYPE: XR chest 2V DATE OF EXAM: 11/02/2023 8:30 PM CLINICAL INDICATION:Female, 88 years old with history of Chest Pain; [facility] COMPARISON: Chest radiographs from 10/17/2023 TECHNIQUE: XR chest 2V Frontal and lateral views of the chest. FINDINGS: Lungs/Pleura: No evidence of focal consolidation or pneumothorax. Blunting of the costophrenic angles is present. Pulmonary vascularity: Pulmonary vascular congestion. Heart/mediastinum: Cardiomediastinal silhouette is enlarged and stable. Atherosclerotic calcificatio ns are seen in the aorta. Musculoskeletal: No acute osseous pathology. IMPRESSION: Cardiomegaly, pulmonary vascular congestion and bilateral pleural effusions. Correlate with BNP for c ongestive heart failure.
[2023-11-02] MEDS: CALCIUM CHLORIDE 100 MG/ML 10 ML SYRINGE IVP STA (21:23)
[2023-11-02] MEDS: SODIUM BICARB 8.4% 50 ML SYR (1 MEQ/ML) IV STA (21:23)
[2023-11-02] MEDS: INSULIN REGULAR 100 UNIT/ML VIAL (IV) IV ONE (21:24)
[2023-11-02] MEDS: DEXTROSE 50% SYRINGE 50 ML IVP STA (21:24)
[2023-11-02] MEDS: FUROSEMIDE 10 MG/ML 4 ML VIAL IV SCH (21:27)
[2023-11-02 22:54] LABS: Glucose,Whole Blood 144 mg/dL (70-110)
[2023-11-02] MEDS ORDERED: HYDROcodone/APAP 5-325MG 1 EACH TAB PO PRN (23:34)
[2023-11-02] MEDS: SODIUM POLYSTYRENE SULFONATE 15 GM/60 ML BOTTLE PO ONE (23:52)
[2023-11-03] MEDS: rOPINIRole HCL 4 MG TABLET PO SCH (01:12)
[2023-11-03 05:46] LABS: Glucose,Whole Blood 132 mg/dL (70-110)
[2023-11-03] MEDS: carvediloL 12.5 MG TAB PO SCH ×2 (06:32→16:48)
[2023-11-03] MEDS: DULoxetine HCL 60 MG CAPSULE.DR PO SCH (09:43)
[2023-11-03 10:07] LABS: ALT 121 U/L (4-34); AST 91 U/L (14-36); African American GFR (CKD) 46 (>60 ml/min/1.73 sqM); Albumin 3.2 g/dL (3.5-5.0); Alkaline Phosphatase 217 U/L (38-126); Anion Gap 7 mmol/L; Blood Urea Nitrogen 53 mg/dL (7-17); Calcium 9.3 mg/dL (8.4-10.2); Carbon Dioxide 28 mmol/L (22-30); Chloride 104 mmol/L (98-107); Glucose 283 mg/dL (74-99); Non-African American GFR(CKD) 40 (>60 ml/min/1.73 sqM); Potassium 5.3 mmol/L (3.5-5.1); Sodium 139 mmol/L (137-145); Total Bilirubin 0.6 mg/dL (0.2-1.3); Total Protein 5.8 g/dL (6.3-8.2)
--- NOTE | 2023-11-03 10:52 | P.CRDCN ---
History of Present Illness History of present illness: HISTORY OF PRESENT ILLNESS: This is a 88-year-old female with a past medical history significant for hypertension, hyperlipidemia, congestive heart failure, and diabetes. 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 We have been asked to see the patient in consultation for pulmonary edema. Patient examined at the bedside. Patient was brought to the hospital from [facility] secondary to shortness of breath. Patient currently denies chest pain or pressure. She continues to report sh ortness of breath at the time of examination. Patient was found to be in acute CHF and was started on IV Lasix. The patient was also found to be positive for influenza A. DIAGNOSTICS: - EKG reveals sinus mechanism with incomplete right bundle branch block. No signs of acute ischemia. - Chest xray cardiomegaly, pulmonary vascular congestion and bilateral pleural effusions. - Laboratory data: WBC 7.9. Hemoglobin 12.2. Platelet count 117. Sodium 140. Potassium 6.7. Repeat 5.9. BUN 48. Creatinine 1.15. AST 109. ALT 162. Alkaline phosphatase 253. Troponin negative x 1. proBNP 3420. - Current home cardiac medications include hydralazine 50 mg 3 times a day, carvedilol 25 mg twice a day, Procardia 60 mg daily, Lasix 20 mg daily, Lipitor 20 mg daily, aspirin 81 mg daily - Most recent echocardiogram obtained in September 2023 revealed ejection fraction 55 to 60%, severe pulmonary hypertension, moderate to severe MR, moderate to severe TR - Cardiac catheterization history: Patient denies REVIEW OF SYSTEMS: At the time of my exam: CONSTITUTIONAL: Denies fever or chills. HEENT: Denies blurred vision, vision changes, or eye pain. Denies hemoptysis CARDIOVASCULAR: Denies chest pain. Denies orthopnea. Denies PND. Denies palpitations RESPIRATORY: + shortness of breath. GASTROINTESTINAL: Denies abdominal pain. Denies nausea or vomiting. HEMATOLOGIC: Denies bleeding disorders. GENITOURINARY: Denies any blood in urine. SKIN: Denies pruitis. Denies rash. PHYSICAL EXAM: VITAL SIGNS: Reviewed. GENERAL: Well-developed in no acute distress. HEENT: Head is normocephalic. Pupils are equal, round. Sclerae anicteric. Mucous membranes of the mouth are moist. Neck supple. + JVD LUNGS: Respirations even and unlabored. Lungs essentially clear to auscultation bilaterally. HEART: Regular rate and rhythm. S1 and S2 heard. Systolic murmur noted ABDOMEN: Soft. Nondistended. Nontender. EXTREMITIES: Normal range of motion. No clubbing or cyanosis. Peripheral pulses intact. Trace bilateral lower extremity edema NEUROLOGIC: Awake and alert. Oriented x 3. 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 Signing provider agrees with the documented findings, assessment, and plan of care documented by GRAIN LOADER as a scribe. Past Medical History Past Medical History: Heart Failure, Diabetes Mellitus, Hypertension, Pneumonia Additional Past Medical History / Comment(s): new CHF 09/2023, "kidney damage" History of Any Multi-Drug Resistant Organisms: MRSA Date of last positivie culture/infection: 07/29/23 MDRO Source:: sepsis Past Surgical History: Hysterectomy Additional Past Surgical History / Comment(s): R hip, cataract sx Past Anesthesia/Blood Transfusion Reactions: No Reported Reaction Smoking Status: Never smoker Past Alcohol Use History: None Reported Past Drug Use History: None Reported Medications and Allergies Home Medications Medication Instructions Recorded Confirmed Type Docusate [Colace] 100 mg PO BID 10/08/23 11/02/23 History Ergocalciferol (Vitamin D2) 1,250 mcg PO APPIAH 10/08/23 11/02/23 History [Drisdol (50,000 Iu)] Ferrous Sulfate [Iron (65 MG 325 mg PO SUMOWEFR 10/08/23 11/02/23 History Elemental)] carvediloL [Coreg] 25 mg PO BID 10/08/23 11/02/23 History hydrALAZINE HCL [Apresoline] 50 mg PO TID 10/08/23 11/02/23 History polyethylene glycoL 3350 [Miralax] 17 gm PO DAILY 10/08/23 11/02/23 History HYDROcodone/APAP 5-325MG [[place] 1 tab PO Q4HR PRN #4 tab 10/19/23 11/02/23 Rx 5-325] Insulin Detemir [Levemir Flexpen] 25 units SQ DAILY #0 10/19/23 11/02/23 Rx Potassium Chloride ER [K-Dur 20] 40 meq PO BID tab 10/19/23 11/02/23 Rx predniSONE [Deltasone] 20 mg PO DAILY #2 tab 10/19/23 11/02/23 Rx Albuterol Sulfate [Albuterol 2 puff INHALATION RT-Q6H 11/02/23 11/02/23 History Sulfate Hfa] Aspirin [Vazalore] 81 mg PO DAILY 11/02/23 11/02/23 History Atorvastatin [Lipitor] 20 mg PO DAILY 11/02/23 11/02/23 History Cholestyramine (with Sugar) 4 gm PO BID 11/02/23 11/02/23 History [Questran Packet] DULoxetine HCL [Cymbalta] 60 mg PO BID 11/02/23 11/02/23 History Furosemide [Lasix] 20 mg PO DAILY 11/02/23 11/02/23 History Insulin Lispro [Insulin Lispro See Protocol SQ AC-TID 11/02/23 11/02/23 History Kwikpen U-100] NIFEdipine XL [Procardia XL] 60 mg PO DAILY 11/02/23 11/02/23 History Omeprazole 20 mg PO DAILY 11/02/23 11/02/23 History rOPINIRole HCL [Requip] 4 mg PO BID 11/02/23 11/02/23 History Allergies Allergy/AdvReac Type Severity Reaction Status Date / Time No Known Allergies Allergy Verified 11/02/23 21:42 Physical Exam Vitals: Vital Signs Temp Pulse Pulse Resp BP BP Pulse Ox 11/03/23 04:00 57 L 17 114/57 96 11/03/23 02:00 55 L 11/03/23 01:14 55 L 20 97/56 93 L 11/02/23 22:48 97.9 F 59 L 18 123/66 94 L 11/02/23 22:14 97.6 F 86 18 107/74 95 11/02/23 20:41 63 18 141/75 96 11/02/23 19:32 96.9 F L 64 22 124/79 99 Intake and Output 11/02/23 11/03/23 11/03/23 22:59 06:59 14:59 Output Total 900 Balance -900 Output: Urine 900 Other: Voiding Method External Catheter Weight 61.235 kg 74 kg Results 11/02/23 20:09 11/03/23 08:52 Cardiac Enzymes 11/02/23 11/02/23 Range/Units 20:09 20:15 AST 109 H (14-36) U/L Troponin I <0.012 (0.000-0.034) ng/mL Coagulation 11/02/23 Range/Units 20:09 PT 9.8 L (10.0-12.5) sec APTT 25.4 (22.0-30.0) sec CBC 11/02/23 Range/Units 20:09 WBC 7.9 (3.8-10.6) k/uL RBC 3.85 (3.80-5.40) m/uL Hgb 12.2 (11.4-16.0) gm/dL Hct 38.0 (34.0-46.0) % Plt Count 117 L (150-450) k/uL Comprehensive Metabolic Panel 11/02/23 11/02/23 Range/Units 20:09 22:38 Sodium 140 (137-145) mmol/L Potassium 6.7 H* 5.9 H (3.5-5.1) mmol/L Chloride 108 H (98-107) mmol/L Carbon Dioxide 26 (22-30) mmol/L BUN 48 H (7-17) mg/dL Creatinine 1.15 H (0.52-1.04) mg/dL Glucose 164 H (74-99) mg/dL Calcium 9.5 (8.4-10.2) mg/dL AST 109 H (14-36) U/L ALT 162 H (4-34) U/L Alkaline Phosphatase 253 H (38-126) U/L Total Protein 7.0 (6.3-8.2) g/dL Albumin 4.0 (3.5-5.0) g/dL Current Medications Generic Name Dose Route Start Last Admin Trade Name Freq PRN Reason Stop Dose Admin Hydrocodone Bitart/Acetaminophen 1 each 11/02/23 23:34 Hydrocodone/Apap 5-325mg 1 Each Tab PO Q4HR PRN Pain Carvedilol 12.5 mg 11/03/23 07:30 11/03/23 06:32 Carvedilol 12.5 Mg Tab PO 12.5 mg BID-W/MEALS KATELIN Administration Duloxetine HCl 60 mg 11/03/23 09:00 Duloxetine Hcl 60 Mg Capsule.Dr PO BID KATELIN Furosemide 40 mg 11/02/23 20:45 11/03/23 04:01 Furosemide 10 Mg/Ml 4 Ml Vial IV 40 mg Q8H KATELIN Administration Ropinirole HCl 4 mg 11/02/23 23:45 11/03/23 01:12 Ropinirole Hcl 4 Mg Tablet PO 4 mg BID KATELIN Administration Intake and Output 11/02/23 11/03/23 11/03/23 22:59 06:59 14:59 Output Total 900 Balance -900 Output: Urine 900 Other: Voiding Method External Catheter Weight 61.235 kg 74 kg 11/02/23 20:09 11/02/23 22:38
[2023-11-03 11:31] LABS: Glucose,Whole Blood 294 mg/dL (70-110)
[2023-11-03] MEDS: ATORVASTATIN 20 MG TAB PO SCH (11:56)
[2023-11-03] MEDS: ASPIRIN 81 MG PO SCH (11:56)
[2023-11-03] MEDS: carvediloL 12.5 MG TAB PO ONE (11:56)
[2023-11-03] MEDS: INSULIN ASPART (NovoLOG) 100 UNIT/ML VIAL SQ SCH (12:22)
[2023-11-03] MEDS: DOCUSATE 100 MG CAP PO SCH (14:35)
[2023-11-03] MEDS: OSELTAMIVIR 60 MG/10 ML ORAL SYRINGE PO SCH (14:35)
[2023-11-03] MEDS: ALBUTEROL NEBULIZED 2.5 MG/3 ML INHALATION SCH (15:11)
[2023-11-03 16:20] LABS: Glucose,Whole Blood 479 mg/dL (70-110)
[2023-11-03 16:20] LABS: Glucose,Whole Blood 454 mg/dL (70-110)
[2023-11-03] MEDS: hydrALAZINE HCL 50 MG TAB PO SCH (16:43)
[2023-11-03] MEDS: INSULIN ASPART (NovoLOG) 100 UNIT/ML VIAL SQ ONE (17:16)
--- NOTE | 2023-11-03 17:45 | CT ---
EXAMINATION TYPE: CT chest wo con DATE OF EXAM: 11/03/2023 COMPARISON: None HISTORY: Cough CT DLP: 329.[address] of the chest was performed with lung and mediastinal window settings submitted. The la ck of contrast limits evaluation of the vascular, mediastinal and parenchymal structures including th e upper abdomen. LUNGS: Scattered patchy infiltrates are noted with pulmonary venous congestion as well as interstitia l edema and small effusions. Findings could reflect congestive failure although infiltrates of other etiology not excluded. Pulmonary nodule anterior to the right hilum image 28 measures 7.6 mm. MEDIASTINUM/JUAN PABLO: Thoracic aorta is of normal caliber with limited evaluation given lack of contrast . The heart is enlarged. No evidence for mediastinal mass. No lymph nodes greater than 1cm. Moder ate fixed hiatal hernia. UPPER ABDOMEN: No significant abnormality is seen. OTHER: No significant other abnormality. IMPRESSION: 1. Findings may reflect congestive failure although infiltrates of other etiology are not excluded. Correlate clinically. 2. Right upper lobe nodule. Follow-up in 6 months is advised.
[2023-11-03 17:52] LABS: Glucose,Whole Blood 430 mg/dL (70-110)
[2023-11-03] MEDS: INSULIN DETEMIR (LEVEMIR) 100 UNIT/ML SYR SQ SCH (19:03)
[2023-11-03] MEDS: COLLAGENASE 250 UNIT/GM OINTMENT 30 GM TUBE TOPICAL SCH (19:03)
[2023-11-03 20:20] LABS: Glucose,Whole Blood 324 mg/dL (70-110)
[2023-11-03] MEDS ORDERED: ALBUTEROL NEBULIZED 2.5 MG/3 ML INHALATION PRN (20:21)
--- NOTE | 2023-11-03 21:45 | HP ---
HISTORY AND PHYSICAL CHIEF COMPLAINT: Shortness of breath. HISTORY OF PRESENT ILLNESS: This is an 88-year-old woman with a past medical history of multiple medical problems, recently diagnosed with CHF acute exacerbation, was having shortness of breath in the alf. The patient denies any fever and chills. There is no history of any COPD. The chest x-ray which was reviewed personally showed bilateral lesions actually worse than the previous readings, creatinine is 1.1. The patient also had abnormal LFTs also. There is no history of any fever, rigors, or chills at this time. The baseline creatinine was normal. Influenza A is also positive. PAST MEDICAL HISTORY: Reviewed, this includes CHF, rest of the history and rest of the chart is also reviewed. HOME MEDICATIONS: Reviewed include , dose and rest of medications reviewed. ALLERGIES: None. FAMILY HISTORY: No history of heart disease or strokes in the family. SOCIAL HISTORY: No history of smoking or alcohol. REVIEW OF SYSTEMS: A 14-point review is negative except as mentioned. PHYSICAL EXAMINATION: VITAL SIGNS: Pulse is 60, blood pressure is 120/59, respirations 16. HEENT: Conjunctivae normal. NECK: No jugular venous distention. CARDIOVASCULAR: S1, S2. RESPIRATIONS: Bilateral scattered rhonchi. Expiratory wheezing also present. ABDOMEN: Soft, nontender. LEGS: No edema, no swelling. NERVOUS SYSTEM: No focal deficits. LABORATORY DATA: Noted. ASSESSMENT: 1. CHF acute exacerbation with acute on chronic diastolic dysfunction. 2. Severe pulmonary hypertension. 3. Lxoaplib-ha-vynaum mitral regurgitation and muhbxgin-wr-rohqjj tricuspid regurgitation. 4. Acute influenza A. 5. Acute renal failure. 6. Acute hyperkalemia. 7. Elevated LFTs. 8. Thrombocytopenia. 9. Diabetes mellitus, type 2. 10.Hypertension. 11.Multiple medical issues. 12.History of MRSA. RECOMMENDATIONS AND DISCUSSION: This 88-year-old woman presented with multiple complex medical issues. At this time, I recommended to continue current medications, cautious IV diuretics, cardiology consultation. I would also recommend pulmonary consultation. There are no obvious signs of COPD at this time, but we will continue to monitor. Infectious Disease also will be consulted. Tamiflu will be ordered. The prognosis is guarded because of multiple complex medical issues. Further recommendations to follow. See orders for details. Contact isolation. MMODL / IJN: [id number] / MTDD
--- NOTE | 2023-11-03 22:02 | P.CONS ---
History of Present Illness - Reason for Consult Consult date: 11/03/23 Flu Requesting physician: Elizabeth Newsome - Chief Complaint Increasing shortness of breath x 1 day - History of Present Illness Patient is a 88-year-old female with a past medical history significant for diabetes mellitus hypertension congestive heart failure with hi story of right hip fracture for the patient has been out of the hospital and during one of the hospital stay the patient also developed pressure ulcer to the mid back area that has been there since July 2023 currently being treated with Medihoney without any improvement, the patient has been sent to the ER for evaluation of increasing shortness of breath apparently has been going on for day before the patient was sent to the hospital patient was complaining of shortness of breath she also have a congested cough mild to moderate intensity and is bringing up some yellow sputum no hemoptysis denies any pleuritic chest pain patient denies having any nausea vomiting no abdominal pain or any diarrhea with the symptoms the patient has been evaluated on presentation to the hospital the patient was afebrile and no fever have been recorded subsequently patient was not tachycardic hypotensive mild hypoxemia with O2 sats of 93% on room air currently patient not requiring any supplemental oxygen at the time my evaluation patient did have white count of 7.9 no left shift BUN/creatinine has been mildly elevated liver enzymes are mildly elevated patient did tested positive for influenza A COVID RSV was negative patient did have a chest x-ray cardiomegaly pulmonary vascular congestion bilateral effusion correlate with BNP for congestive heart failure patient also have a CT of the chest finding may reflect congestive heart failure right upper lobe nodule patient was started on Tamiflu infectious disease was consulted for further management Review of Systems Positive point and negatives has been mentioned in the HPI, complete review of systems was performed and all other systems are negative Past Medical History Past Medical History: Heart Failure, Diabetes Mellitus, Hypertension, Pneumonia Additional Past Medical History / Comment(s): new CHF 09/2023, "kidney damage" History of Any Multi-Drug Resistant Organisms: MRSA Year Discovered:: 07/29/23 MDRO Source:: sepsis Past Surgical History: Hysterectomy Additional Past Surgical History / Comment(s): R hip, cataract sx Past Anesthesia/Blood Transfusion Reactions: No Reported Reaction Smoking Status: Never smoker Past Alcohol Use History: None Reported Past Drug Use History: None Reported Medications and Allergies Home Medications Medication Instructions Recorded Confirmed Type Docusate [Colace] 100 mg PO BID 10/08/23 11/02/23 History Ergocalciferol (Vitamin D2) 1,250 mcg PO APPIAH 10/08/23 11/02/23 History [Drisdol (50,000 Iu)] Ferrous Sulfate [Iron (65 MG 325 mg PO SUMOWEFR 10/08/23 11/02/23 History Elemental)] carvediloL [Coreg] 25 mg PO BID 10/08/23 11/02/23 History hydrALAZINE HCL [Apresoline] 50 mg PO TID 10/08/23 11/02/23 History polyethylene glycoL 3350 [Miralax] 17 gm PO DAILY 10/08/23 11/02/23 History Insulin Detemir [Levemir Flexpen] 25 units SQ DAILY #0 10/19/23 11/02/23 Rx Potassium Chloride ER [K-Dur 20] 40 meq PO BID tab 10/19/23 11/02/23 Rx predniSONE [Deltasone] 20 mg PO DAILY #2 tab 10/19/23 11/02/23 Rx Albuterol Sulfate [Albuterol 2 puff INHALATION RT-Q6H 11/02/23 11/02/23 History Sulfate Hfa] Aspirin [Vazalore] 81 mg PO DAILY 11/02/23 11/02/23 History Atorvastatin [Lipitor] 20 mg PO DAILY 11/02/23 11/02/23 History Cholestyramine (with Sugar) 4 gm PO BID 11/02/23 11/02/23 History [Questran Packet] DULoxetine HCL [Cymbalta] 60 mg PO BID 11/02/23 11/02/23 History NIFEdipine XL [Procardia XL] 60 mg PO DAILY 11/02/23 11/02/23 History Omeprazole 20 mg PO DAILY 11/02/23 11/02/23 History rOPINIRole HCL [Requip] 4 mg PO BID 11/02/23 11/02/23 History Albuterol Nebulized [Ventolin 2.5 mg INHALATION RT-Q2H PRN ml 11/06/23 Rx Nebulized] Albuterol Nebulized [Ventolin 2.5 mg INHALATION RT-QID ml 11/06/23 Rx Nebulized] Collagenase [Santyl Ointment] 1 applic TOPICAL DAILY each 11/06/23 Rx Furosemide [Lasix] 40 mg PO BID@0900,1600 tab 11/06/23 Rx HYDROcodone/APAP 5-325MG [Burnside 1 tab PO Q4HR PRN #2 tab 11/06/23 Rx 5-325] INSULIN ASPART (NovoLOG) [NovoLOG 0 unit SQ ACHS each 11/06/23 Rx (formulary)] Oseltamivir 6Mg/ml Oral Susp 30 mg PO Q12HR 3 Days #6 each 11/06/23 Rx [Tamiflu] Allergies Allergy/AdvReac Type Severity Reaction Status Date / Time No Known Allergies Allergy Verified 11/02/23 21:42 Physical Exam Vitals: Vital Signs Temp Pulse Pulse Resp BP BP BP 11/03/23 11:58 97.8 F 61 18 125/58 11/03/23 09:36 97.5 F L 60 16 121/59 11/03/23 04:00 57 L 17 114/57 11/03/23 02:00 55 L 11/03/23 01:14 55 L 20 97/56 11/02/23 22:48 97.9 F 59 L 18 123/66 11/02/23 22:14 97.6 F 86 18 107/74 11/02/23 20:41 63 18 141/75 11/02/23 19:32 96.9 F L 64 22 124/79 Pulse Ox 11/03/23 11:58 100 11/03/23 09:36 99 11/03/23 04:00 96 11/03/23 02:00 11/03/23 01:14 93 L 11/02/23 22:48 94 L 11/02/23 22:14 95 11/02/23 20:41 96 11/02/23 19:32 99 Intake and Output 11/02/23 11/03/23 11/03/23 22:59 06:59 14:59 Intake Total 848 Output Total 900 400 Balance -900 448 Intake: IV 10 Invasive Line 1 10 Oral 838 Output: Urine 900 400 Other: Voiding Method External Catheter External Catheter Weight 61.235 kg 74 kg 74 kg GENERAL DESCRIPTION: Elderly female lying in bed, no distress. No tachypnea or accessory muscle of respiration use. HEENT: Shows Pallor , no scleral icterus. Oral mucous membrane is dry. No pharyngeal erythema or thrush NECK: Trachea central, no thyromegaly. LUNGS: Unlabored breathing. Coarse breath sounds bilaterally HEART: S1, S2, regular rate and rhythm. No loud murmur ABDOMEN: Soft, no tenderness , guarding or rigidity, no organomegaly EXTREMITIES: No edema of feet. SKIN: Stage III pressure ulcer to the mid back area with slough tissue no surrounding redness or drainage NEUROLOGICAL: The patient is awake, alert, oriented x3, mood and affect normal. Results CBC & Chem 7: 11/06/23 05:54 11/06/23 05:54 Labs: Abnormal Lab Results - Last 24 Hours (Table) 11/02/23 11/02/23 11/02/23 Range/Units 20:09 20:09 20:09 Plt Count 117 L (150-450) k/uL Lymphocytes # 0.3 L (1.0-4.8) k/uL PT 9.8 L (10.0-12.5) sec D-Dimer (<0.60) mg/L FEU Potassium 6.7 H* (3.5-5.1) mmol/L Chloride 108 H (98-107) mmol/L BUN 48 H (7-17) mg/dL Creatinine 1.15 H (0.52-1.04) mg/dL Glucose 164 H (74-99) mg/dL POC Glucose (mg/dL) (70-110) mg/dL AST 109 H (14-36) U/L ALT 162 H (4-34) U/L Alkaline Phosphatase 253 H (38-126) U/L Total Protein (6.3-8.2) g/dL Albumin (3.5-5.0) g/dL Influenza Type A (PCR) (Not Detectd) 11/02/23 11/02/23 11/02/23 Range/Units 20:15 22:38 22:52 Plt Count (150-450) k/uL Lymphocytes # (1.0-4.8) k/uL PT (10.0-12.5) sec D-Dimer (<0.60) mg/L FEU Potassium 5.9 H (3.5-5.1) mmol/L Chloride (98-107) mmol/L BUN (7-17) mg/dL Creatinine (0.52-1.04) mg/dL Glucose (74-99) mg/dL POC Glucose (mg/dL) 144 H (70-110) mg/dL AST (14-36) U/L ALT (4-34) U/L Alkaline Phosphatase (38-126) U/L Total Protein (6.3-8.2) g/dL Albumin (3.5-5.0) g/dL Influenza Type A (PCR) Detected A (Not Detectd) 11/03/23 11/03/23 11/03/23 Range/Units 05:44 08:52 11:29 Plt Count (150-450) k/uL Lymphocytes # (1.0-4.8) k/uL PT (10.0-12.5) sec D-Dimer (<0.60) mg/L FEU Potassium 5.3 H (3.5-5.1) mmol/L Chloride (98-107) mmol/L BUN 53 H (7-17) mg/dL Creatinine 1.21 H (0.52-1.04) mg/dL Glucose 283 H (74-99) mg/dL POC Glucose (mg/dL) 132 H 294 H (70-110) mg/dL AST 91 H (14-36) U/L ALT 121 H (4-34) U/L Alkaline Phosphatase 217 H (38-126) U/L Total Protein 5.8 L (6.3-8.2) g/dL Albumin 3.2 L (3.5-5.0) g/dL Influenza Type A (PCR) (Not Detectd) 11/03/23 Range/Units 13:30 Plt Count (150-450) k/uL Lymphocytes # (1.0-4.8) k/uL PT (10.0-12.5) sec D-Dimer 1.71 H (<0.60) mg/L FEU Potassium (3.5-5.1) mmol/L Chloride (98-107) mmol/L BUN (7-17) mg/dL Creatinine (0.52-1.04) mg/dL Glucose (74-99) mg/dL POC Glucose (mg/dL) (70-110) mg/dL AST (14-36) U/L ALT (4-34) U/L Alkaline Phosphatase (38-126) U/L Total Protein (6.3-8.2) g/dL Albumin (3.5-5.0) g/dL Influenza Type A (PCR) (Not Detectd) Assessment and Plan (1) Influenza A Status: Acute Code(s): J10.1 - FLU DUE TO OTH IDENT INFLUENZA VIRUS W OTH RESP MANIFEST SNOMED Code(s): 652534455 (2) Leukocytosis Status: Acute Code(s): D72.829 - ELEVATED WHITE BLOOD CELL COUNT, UNSPECIFIED SNOMED Code(s): 594506490 (3) Stage III pressure ulcer of back Status: Acute Code(s): L89.103 - PRESSURE ULCER OF UNSPECIFIED PART OF BACK, STAGE 3 SNOMED Code(s): 82895239542621942 Plan: 1patient presented to hospital with increasing shortness of breath which is likely multifactorial in this patient and he tested positive for influenza A however chest x-ray and CT has been suggestive of possible fluid overload and CHF may be contributing to some of her symptoms patient did not have any fever or elevated white count clinical suspicion low for secondary bacterial pneumonia. 2patient did have a chronic nonhealing wound to the mid back area, likely a stage III pressure ulcer with slough tissue but no surrounding redness clinic suspicion is low for infected wound 3we will try to obtain a sputum for Gram stain and culture check a CRP proca lcitonin level 4local wound care to the mid back wound with Santyl followed by moist dressing and keep the area of the pressure 5Tamiflu to continue to finish 5-day course of therapy 6-elevated liver exam possibly hepatic congestion from fluid overload not be having as cholecystitis We will follow on clinical condition and cultures to further adjust medication if needed Thank you for this consultation we will follow the patient along with you Dictation was produced using [employer] dictation software. please excuse any grammatical, word or spelling errors. Time with Patient: Greater than 30
[2023-11-03] MEDS: CHOLESTYRAMINE (WITH SUGAR) 4 GM PACKET PO SCH (22:36)
[2023-11-03] MEDS: FUROSEMIDE 10 MG/ML 4 ML VIAL IV SCH (22:36)
[2023-11-04 06:16] LABS: Glucose,Whole Blood 31 mg/dL (70-110)
[2023-11-04] MEDS: DEXTROSE 50% SYRINGE 50 ML IVP STA (06:16)
[2023-11-04] MEDS: PANTOPRAZOLE 40 MG TABLET PO SCH (06:21)
[2023-11-04 06:23] LABS: Glucose,Whole Blood 178 mg/dL (70-110)
[2023-11-04] MEDS ORDERED: INSULIN DETEMIR (LEVEMIR) 100 UNIT/ML SYR SQ SCH (07:00)
[2023-11-04] MEDS: ALBUTEROL NEBULIZED 2.5 MG/3 ML INHALATION SCH (09:04)
[2023-11-04 09:51] LABS: Basophils % (A) 0 %; Eosinophils % (A) 0 %; HCT 34.7 % (34.0-46.0); HGB 11.4 gm/dL (11.4-16.0); Lymphocytes # (A) 0.7 k/uL (1.0-4.8); Lymphocytes % (A) 6 %; MCH 31.8 pg (25.0-35.0); MCHC 32.8 g/dL (31.0-37.0); MCV 96.8 fL (80.0-100.0); Mean Platelet Volume 10.5; Monocytes # (A) 0.4 k/uL (0-1.0); Monocytes % (A) 4 %; Neutrophils # (A) 10.1 k/uL (1.3-7.7); Neutrophils % (A) 88 %; Platelet Count 124 k/uL (150-450); RBC 3.58 m/uL (3.80-5.40); WBC 11.4 k/uL (3.8-10.6)
[2023-11-04] MEDS: predniSONE 20 MG TAB PO SCH (10:09)
[2023-11-04] MEDS: polyethylene glycoL 3350 17 GM POWD.PACK PO SCH (10:10)
[2023-11-04 10:35] LABS: ALT 131 U/L (4-34); AST 72 U/L (14-36); African American GFR (CKD) 48 (>60 ml/min/1.73 sqM); Albumin 3.4 g/dL (3.5-5.0); Alkaline Phosphatase 204 U/L (38-126); Anion Gap 6 mmol/L; Blood Urea Nitrogen 62 mg/dL (7-17); Calcium 9.1 mg/dL (8.4-10.2); Carbon Dioxide 32 mmol/L (22-30); Chloride 103 mmol/L (98-107); NT-Pro-B-Type Natriuretic Pept 1470 pg/mL; Non-African American GFR(CKD) 41 (>60 ml/min/1.73 sqM); Potassium 3.8 mmol/L (3.5-5.1); Sodium 141 mmol/L (137-145); Total Bilirubin 0.6 mg/dL (0.2-1.3); Total Protein 6.1 g/dL (6.3-8.2)
[2023-11-04 10:42] LABS: Glucose 40 mg/dL (74-99)
[2023-11-04 10:52] LABS: Glucose,Whole Blood 201 mg/dL (70-110)
--- NOTE | 2023-11-04 11:12 | P.PN ---
Subjective HISTORY OF PRESENT ILLNESS: This is a 88-year-old female with a past medical history significant for hypertension, hyperlipidemia, congestive heart failure, and diabetes. 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 We have been asked to see the patient in consultation for pulmonary edema. Patient examined at the bedside. Patient was brought to the hospital from [facility] secondary to shortness of breath. Patient currently denies chest pain or pressure. She continues to report shortness of breath at the time of examination. Patient was found to be in acute CHF and was started on IV Lasix. The patient was also found to be positive for influenza A. DIAGNOSTICS: - EKG reveals sinus mechanism with incomplete right bundle branch block. No signs of acute ischemia. - Chest xray cardiomegaly, pulmonary vascular congestion and bilateral pleural effusions. - Laboratory data: WBC 7.9. Hemoglobin 12.2. Platelet count 117. Sodium 140. Potassium 6.7. Repeat 5.9. BUN 48. Creatinine 1.15. AST 109. ALT 162. Alkaline phosphatase 253. Troponin negative x 1. proBNP 3420. - Current home cardiac medications include hydralazine 50 mg 3 times a day, carvedilol 25 mg twice a day, Procardia 60 mg daily, Lasix 20 mg daily, Lipitor 20 mg daily, aspirin 81 mg daily - Most recent echocardiogram obtained in September 2023 revealed ejection fraction 55 to 60%, severe pulmonary hypertension, moderate to severe MR, moderate to severe TR - Cardiac catheterization history: Patient denies November 04, 2023 Patient examined this morning at the bedside. Patient denies chest pain or pressure. She reports improvement in her shortness of breath. She remains on IV Lasix. Vital signs are stable. PHYSICAL EXAM: VITAL SIGNS: Reviewed. GENERAL: Well-developed in no acute distress. HEENT: Head is normocephalic. Pupils are equal, round. Sclerae anicteric. Mucous membranes of the mouth are moist. Neck supple. LUNGS: Respirations even and unlabored. Lungs essentially clear to auscultation bilaterally. HEART: Regular rate and rhythm. S1 and S2 heard. Systolic murmur noted ABDOMEN: Soft. Nondistended. Nontender. EXTREMITIES: Normal range of motion. No clubbing or cyanosis. Peripheral pulses intact. Trace bilateral lower extremity edema NEUROLOGIC: Awake and alert. Oriented x 3. ASSESSMENT: Shortness of breath Acute on chronic heart failure with preserved EF, 55 to 60% Hyperkalemia Transaminitis Acute influenza A Severe pulmonary hypertension Valvular heart disease including moderate to severe MR and moderate to severe TR Hypertension Hyperlipidemia Diabetes PLAN: Continue current cardiac medications Discontinue IV Lasix Begin oral Lasix 40 mg twice a day No further inpatient recommendations from a cardiac standpoint We will sign off. Please reconsult if needed. Nurse practitioner note has been reviewed by physician. Signing provider agrees with the documented findings, assessment, and plan of care documented by [employer] as a scribe. Objective - Vital Signs Vital signs: Vital Signs Temp 98 F 11/04/23 10:05 Pulse 67 11/04/23 10:05 Resp 20 11/04/23 10:05 BP 148/70 11/04/23 10:05 Pulse Ox 100 11/04/23 10:05 FiO2 Intake & Output 11/03/23 11/04/23 11/04/23 18:59 06:59 18:59 Intake Total 1088 236 Output Total 400 900 Balance 688 -900 236 Weight 74 kg Intake: IV 10 Invasive Line 1 10 Oral 1078 236 Output: Urine 400 900 Other: Voiding Method External Catheter External Catheter External Catheter # Voids 1 - Labs CBC & Chem 7: 11/04/23 08:54 11/04/23 08:54 Labs: Abnormal Lab Results - Last 24 Hours (Table) 11/03/23 11/03/23 11/03/23 Range/Units 11:29 13:30 13:30 WBC (3.8-10.6) k/uL RBC (3.80-5.40) m/uL Plt Count (150-450) k/uL Neutrophils # (1.3-7.7) k/uL Lymphocytes # (1.0-4.8) k/uL D-Dimer 1.71 H (<0.60) mg/L FEU Carbon Dioxide (22-30) mmol/L BUN (7-17) mg/dL Creatinine (0.52-1.04) mg/dL Glucose (74-99) mg/dL POC Glucose (mg/dL) 294 H (70-110) mg/dL AST (14-36) U/L ALT (4-34) U/L Alkaline Phosphatase (38-126) U/L Total Protein (6.3-8.2) g/dL Albumin (3.5-5.0) g/dL Procalcitonin 0.10 H (0.02-0.09) ng/mL 11/03/23 11/03/23 11/03/23 Range/Units 16:17 16:18 17:50 WBC (3.8-10.6) k/uL RBC (3.80-5.40) m/uL Plt Count (150-450) k/uL Neutrophils # (1.3-7.7) k/uL Lymphocytes # (1.0-4.8) k/uL D-Dimer (<0.60) mg/L FEU Carbon Dioxide (22-30) mmol/L BUN (7-17) mg/dL Creatinine (0.52-1.04) mg/dL Glucose (74-99) mg/dL POC Glucose (mg/dL) 479 H 454 H 430 H (70-110) mg/dL AST (14-36) U/L ALT (4-34) U/L Alkaline Phosphatase (38-126) U/L Total Protein (6.3-8.2) g/dL Albumin (3.5-5.0) g/dL Procalcitonin (0.02-0.09) ng/mL 11/03/23 11/04/23 11/04/23 Range/Units 20:18 06:07 06:22 WBC (3.8-10.6) k/uL RBC (3.80-5.40) m/uL Plt Count (150-450) k/uL Neutrophils # (1.3-7.7) k/uL Lymphocytes # (1.0-4.8) k/uL D-Dimer (<0.60) mg/L FEU Carbon Dioxide (22-30) mmol/L BUN (7-17) mg/dL Creatinine (0.52-1.04) mg/dL Glucose (74-99) mg/dL POC Glucose (mg/dL) 324 H 31 L 178 H (70-110) mg/dL AST (14-36) U/L ALT (4-34) U/L Alkaline Phosphatase (38-126) U/L Total Protein (6.3-8.2) g/dL Albumin (3.5-5.0) g/dL Procalcitonin (0.02-0.09) ng/mL 11/04/23 11/04/23 11/04/23 Range/Units 08:54 08:54 10:50 WBC 11.4 H (3.8-10.6) k/uL RBC 3.58 L (3.80-5.40) m/uL Plt Count 124 L (150-450) k/uL Neutrophils # 10.1 H (1.3-7.7) k/uL Lymphocytes # 0.7 L (1.0-4.8) k/uL D-Dimer (<0.60) mg/L FEU Carbon Dioxide 32 H (22-30) mmol/L BUN 62 H (7-17) mg/dL Creatinine 1.18 H (0.52-1.04) mg/dL Glucose 40 L* (74-99) mg/dL POC Glucose (mg/dL) 201 H (70-110) mg/dL AST 72 H (14-36) U/L ALT 131 H (4-34) U/L Alkaline Phosphatase 204 H (38-126) U/L Total Protein 6.1 L (6.3-8.2) g/dL Albumin 3.4 L (3.5-5.0) g/dL Procalcitonin (0.02-0.09) ng/mL Microbiology - Last 24 Hours (Table) 11/02/23 20:09 Blood Culture - Preliminary Blood
[2023-11-04 11:30] LABS: Glucose,Whole Blood 218 mg/dL (70-110)
--- NOTE | 2023-11-04 11:54 | P.PN ---
Subjective Progress Note Date: 11/04/23 Principal diagnosis: Reason for follow-up is acute influenza A and mid back wound Patient is a 88-year-old female with a past medical history significant for diabetes mellitus hypertension congestive heart failure with history of right hip fracture for the patient has been out of the hospital and during one of the hospital stay the patient also developed pressure ulcer to the mid back area that has been there since July 2023, patient has been sent to the ER for evaluation of increasing shortness of breath and congested cough patient did tested positive for influenza and was mildly hypoxic chest x-ray was mostly CHF. On today's evaluation that is 11/04/2023, the patient is afebrile, patient is on 2 L nasal cannula oxygen, the patient denies chest pain shortness of breath did have a congested cough but not bringing up any sputum, patient denies nausea no vomiting no abdominal pain and no diarrhea has been reported. Patient white count is 11.4, creatinine is 1.18 blood cultures are pending Objective - Vital Signs Vital signs: Vital Signs Temp 98 F 11/04/23 10:05 Pulse 67 11/04/23 10:05 Resp 20 11/04/23 10:05 BP 148/70 11/04/23 10:05 Pulse Ox 100 11/04/23 10:05 FiO2 Intake & Output 11/03/23 11/04/23 11/04/23 18:59 06:59 18:59 Intake Total 1088 236 Output Total 400 900 Balance 688 -900 236 Weight 74 kg Intake: IV 10 Invasive Line 1 10 Oral 1078 236 Output: Urine 400 900 Other: Voiding Method External Catheter External Catheter External Catheter # Voids 1 - Exam GENERAL DESCRIPTION: An elderly female up in the chair in no distress RESPIRATORY SYSTEM: Unlabored breathing , coarse breath sounds anteriorly HEART: S1 S2 regular rate and rhythm , ABDOMEN: Soft , no tenderness EXTREMITIES: No edema feet - Labs CBC & Chem 7: 11/04/23 08:54 11/04/23 08:54 Labs: Abnormal Lab Results - Last 24 Hours (Table) 11/03/23 11/03/23 11/03/23 Range/Units 13:30 13:30 16:17 WBC (3.8-10.6) k/uL RBC (3.80-5.40) m/uL Plt Count (150-450) k/uL Neutrophils # (1.3-7.7) k/uL Lymphocytes # (1.0-4.8) k/uL D-Dimer 1.71 H (<0.60) mg/L FEU Carbon Dioxide (22-30) mmol/L BUN (7-17) mg/dL Creatinine (0.52-1.04) mg/dL Glucose (74-99) mg/dL POC Glucose (mg/dL) 479 H (70-110) mg/dL AST (14-36) U/L ALT (4-34) U/L Alkaline Phosphatase (38-126) U/L Total Protein (6.3-8.2) g/dL Albumin (3.5-5.0) g/dL Procalcitonin 0.10 H (0.02-0.09) ng/mL 11/03/23 11/03/23 11/03/23 Range/Units 16:18 17:50 20:18 WBC (3.8-10.6) k/uL RBC (3.80-5.40) m/uL Plt Count (150-450) k/uL Neutrophils # (1.3-7.7) k/uL Lymphocytes # (1.0-4.8) k/uL D-Dimer (<0.60) mg/L FEU Carbon Dioxide (22-30) mmol/L BUN (7-17) mg/dL Creatinine (0.52-1.04) mg/dL Glucose (74-99) mg/dL POC Glucose (mg/dL) 454 H 430 H 324 H (70-110) mg/dL AST (14-36) U/L ALT (4-34) U/L Alkaline Phosphatase (38-126) U/L Total Protein (6.3-8.2) g/dL Albumin (3.5-5.0) g/dL Procalcitonin (0.02-0.09) ng/mL 11/04/23 11/04/23 11/04/23 Range/Units 06:07 06:22 08:54 WBC 11.4 H (3.8-10.6) k/uL RBC 3.58 L (3.80-5.40) m/uL Plt Count 124 L (150-450) k/uL Neutrophils # 10.1 H (1.3-7.7) k/uL Lymphocytes # 0.7 L (1.0-4.8) k/uL D-Dimer (<0.60) mg/L FEU Carbon Dioxide (22-30) mmol/L BUN (7-17) mg/dL Creatinine (0.52-1.04) mg/dL Glucose (74-99) mg/dL POC Glucose (mg/dL) 31 L 178 H (70-110) mg/dL AST (14-36) U/L ALT (4-34) U/L Alkaline Phosphatase (38-126) U/L Total Protein (6.3-8.2) g/dL Albumin (3.5-5.0) g/dL Procalcitonin (0.02-0.09) ng/mL 11/04/23 11/04/23 11/04/23 Range/Units 08:54 10:50 11:28 WBC (3.8-10.6) k/uL RBC (3.80-5.40) m/uL Plt Count (150-450) k/uL Neutrophils # (1.3-7.7) k/uL Lymphocytes # (1.0-4.8) k/uL D-Dimer (<0.60) mg/L FEU Carbon Dioxide 32 H (22-30) mmol/L BUN 62 H (7-17) mg/dL Creatinine 1.18 H (0.52-1.04) mg/dL Glucose 40 L* (74-99) mg/dL POC Glucose (mg/dL) 201 H 218 H (70-110) mg/dL AST 72 H (14-36) U/L ALT 131 H (4-34) U/L Alkaline Phosphatase 204 H (38-126) U/L Total Protein 6.1 L (6.3-8.2) g/dL Albumin 3.4 L (3.5-5.0) g/dL Procalcitonin (0.02-0.09) ng/mL Microbiology - Last 24 Hours (Table) 11/02/23 20:09 Blood Culture - Preliminary Blood Assessment and Plan (1) Influenza A Current Visit: Yes Status: Acute Code(s): J10.1 - FLU DUE TO OTH IDENT INFLUENZA VIRUS W OTH RESP MANIFEST SNOMED Code(s): 122539795 (2) Stage III pressure ulcer of back Current Visit: Yes Status: Acute Code(s): L89.103 - PRESSURE ULCER OF UNSPECIFIED PART OF BACK, STAGE 3 SNOMED Code(s): 41470412243315147 (3) Leukocytosis Current Visit: Yes Status: Acute Code(s): D72.829 - ELEVATED WHITE BLOOD CELL COUNT, UNSPECIFIED SNOMED Code(s): 377073768 (4) Elevated liver enzymes Current Visit: Yes Status: Acute Code(s): R74.8 - ABNORMAL LEVELS OF OTHER SERUM ENZYMES SNOMED Code(s): 002478122 Plan: 1patient presented to hospital with increasing shortness of breath which is likely multifactorial in this patient and he tested positive for influenza A however chest x-ray and CT has been suggestive of possible fluid overload and CHF may be contributing to some of her symptoms patient did not have any fever or elevated white count clinical suspicion low for secondary bacterial pneumonia. 2patient did have a chronic nonhealing wound to the mid back area, likely a stage III pressure ulcer with slough tissue but no surrounding redness clinic suspicion is low for infected wound 3we will try to obtain a sputum for Gram stain and culture, currently waiting for CRP and procalcitonin level 4local wound care to the mid back wound with Santyl followed by moist dressing and keep the area of the pressure 5patient to continue with Tamiflu to continue to finish 5-day course of therapy and monitor clinical course closely Dictation was produced using [employer] dictation software. please excuse any grammatical, word or spelling errors. Time with Patient: Less than 30
[2023-11-04 12:04] LABS: C Reactive Protein 2.9 mg/dL (<1.0)
[2023-11-04 16:28] LABS: Glucose,Whole Blood 228 mg/dL (70-110)
[2023-11-04] MEDS: FUROSEMIDE 40 MG TAB PO SCH (17:48)
[2023-11-04 20:11] LABS: Glucose,Whole Blood 359 mg/dL (70-110)
[2023-11-04] MEDS: INSULIN DETEMIR (LEVEMIR) 100 UNIT/ML SYR SQ SCH (23:41)
[2023-11-05 06:29] LABS: Glucose,Whole Blood 59 mg/dL (70-110)
[2023-11-05 06:39] LABS: Glucose,Whole Blood 59 mg/dL (70-110)
--- NOTE | 2023-11-05 06:51 | PN ---
PROGRESS NOTE DATE OF SERVICE: 11/04/2023 SUBJECTIVE: This 88-year-old woman is admitted with shortness of breath and CHF exacerbation as well as acute influenza A. The patient closely monitored at this time. The white count is elevated 11.4. Glucose is fluctuating. PAST MEDICAL HISTORY: Reviewed. REVIEW OF SYSTEMS: 14-point review is negative except as mentioned. CURRENT MEDICATIONS: Reviewed include Lipitor, dose and rest of medications reviewed. PHYSICAL EXAMINATION: VITAL SIGNS: Pulse is 67, blood pressure 148/70, respirations 20. CHEST: Scattered rhonchi. ABDOMEN: Soft LABORATORY DATA: Reviewed. ASSESSMENT: 1. CHF acute exacerbation with acute on chronic diastolic dysfunction. 2. Severe pulmonary hypertension. 3. Acute influenza A. 4. Moderate to severe mitral regurgitation as well as qydxslop-do-lahutu tricuspid regurgitation. 5. Acute renal failure. 6. Hypoglycemia with fluctuating blood sugars. 7. Acute hyperkalemia. 8. Elevated LFTs. 9. Thrombocytopenia. 10.Diabetes mellitus, type 2. 11.Hypertension. 12.History of MRSA. 13.Multiple medical issues. 14.Bilateral pneumonia. RECOMMENDATIONS: Recommend to continue current medications, symptomatic treatment, otherwise, LFTs showing improving trend at this time, otherwise, procalcitonin elevated. I would recommend to follow with Infectious Disease and Cardiology. Prognosis guarded. The chest CT, which I reviewed personally showed bilateral pneumonia. Would recommend antibiotics also. MMODL / IJN: [id number] / MTDD
[2023-11-05 07:36] LABS: Glucose,Whole Blood 121 mg/dL (70-110)
--- NOTE | 2023-11-05 07:49 | XR ---
EXAMINATION TYPE: XR chest 1V portable DATE OF EXAM: 11/05/2023 HISTORY: Shortness of breath. COMPARISON: 11/02/2023 TECHNIQUE: Single view of the chest is submitted. FINDINGS: Demonstrated are scattered senescent parenchymal change. Patchy perihilar and basilar infiltrates persist with pulmonary venous congestion. The heart is stabl e. Hilar and mediastinal structures are within normal limits. Fixed hiatal hernia noted. Degenerative changes are seen of the dorsal spine. IMPRESSION: 1. Patchy perihilar and basilar infiltrates persist with pulmonary venous congestion.
[2023-11-05 09:23] LABS: Basophils % (A) 0 %; Eosinophils % (A) 1 %; Lymphocytes # (A) 0.7 k/uL (1.0-4.8); Lymphocytes % (A) 9 %; MCH 31.5 pg (25.0-35.0); MCHC 32.4 g/dL (31.0-37.0); MCV 97.4 fL (80.0-100.0); Mean Platelet Volume 9.9; Monocytes # (A) 0.4 k/uL (0-1.0); Monocytes % (A) 5 %; Neutrophils # (A) 5.8 k/uL (1.3-7.7); Neutrophils % (A) 83 %; Platelet Count 127 k/uL (150-450); RBC 3.49 m/uL (3.80-5.40)
[2023-11-05 09:45] LABS: ALT 94 U/L (4-34); AST 45 U/L (14-36); African American GFR (CKD) 66 (>60 ml/min/1.73 sqM); Albumin 3.2 g/dL (3.5-5.0); Alkaline Phosphatase 188 U/L (38-126); Anion Gap 6 mmol/L; Blood Urea Nitrogen 51 mg/dL (7-17); Calcium 8.8 mg/dL (8.4-10.2); Carbon Dioxide 33 mmol/L (22-30); Chloride 100 mmol/L (98-107); Glucose 129 mg/dL (74-99); Non-African American GFR(CKD) 58 (>60 ml/min/1.73 sqM); Sodium 139 mmol/L (137-145); Total Bilirubin 0.5 mg/dL (0.2-1.3); Total Protein 5.8 g/dL (6.3-8.2)
[2023-11-05 11:36] LABS: Glucose,Whole Blood 157 mg/dL (70-110)
[2023-11-05 15:07] VITALS: BMI 31.2
--- NOTE | 2023-11-05 16:08 | P.PN ---
Subjective Progress Note Date: 11/05/23 Principal diagnosis: Reason for follow-up is acute influenza A and mid back wound Patient is a 88-year-old female with a past medical history significant for diabetes mellitus hypertension congestive heart failure with history of right hip fracture for the patient has been out of the hospital and during one of the hospital stay the patient also developed pressure ulcer to the mid back area that has been there since July 2023, patient has been sent to the ER for evaluation of increasing shortness of breath and congested cough patient did tested positive for influenza and was mildly hypoxic chest x-ray was mostly CHF. On today's evaluation that is 11/05/2023, the patient remains to be afebrile, patient is currently breathing comfortably on room air, the patient denies chest pain patient did have a cough but not bring up any sputum patient denies abdominal pain, no nausea no vomiting or any diarrhea has been reported. Patient white count 7.0, creatinine 0.90 blood cultures pending chest x-ray patchy perihilar and basilar infiltrate Objective - Vital Signs Vital signs: Vital Signs Temp 98 F 11/05/23 08:45 Pulse 72 11/05/23 15:05 Resp 18 11/05/23 15:05 BP 149/67 11/05/23 15:05 Pulse Ox 94 L 11/05/23 15:05 FiO2 Intake & Output 11/04/23 11/05/23 11/05/23 18:59 06:59 18:59 Intake Total 236 240 236 Output Total 500 Balance 236 -260 236 Weight 80 kg 80 kg Intake: Oral 236 240 236 Output: Urine 500 Other: Voiding Method External Catheter External Catheter External Catheter # Voids 1 # Bowel Movements 1 - Exam GENERAL DESCRIPTION: An elderly female up in the chair in no distress RESPIRATORY SYSTEM: Unlabored breathing , coarse breath sounds anteriorly HEART: S1 S2 regular rate and rhythm , ABDOMEN: Soft , no tenderness EXTREMITIES: No edema feet - Labs CBC & Chem 7: 11/05/23 08:27 11/05/23 08:27 Labs: Abnormal Lab Results - Last 24 Hours (Table) 11/04/23 11/04/23 11/05/23 Range/Units 16:27 20:10 06:23 RBC (3.80-5.40) m/uL Hgb (11.4-16.0) gm/dL Plt Count (150-450) k/uL Lymphocytes # (1.0-4.8) k/uL Carbon Dioxide (22-30) mmol/L BUN (7-17) mg/dL Glucose (74-99) mg/dL POC Glucose (mg/dL) 228 H 359 H 59 L (70-110) mg/dL AST (14-36) U/L ALT (4-34) U/L Alkaline Phosphatase (38-126) U/L Total Protein (6.3-8.2) g/dL Albumin (3.5-5.0) g/dL 11/05/23 11/05/23 11/05/23 Range/Units 06:38 07:34 08:27 RBC 3.49 L (3.80-5.40) m/uL Hgb 11.0 L (11.4-16.0) gm/dL Plt Count 127 L (150-450) k/uL Lymphocytes # 0.7 L (1.0-4.8) k/uL Carbon Dioxide (22-30) mmol/L BUN (7-17) mg/dL Glucose (74-99) mg/dL POC Glucose (mg/dL) 59 L 121 H (70-110) mg/dL AST (14-36) U/L ALT (4-34) U/L Alkaline Phosphatase (38-126) U/L Total Protein (6.3-8.2) g/dL Albumin (3.5-5.0) g/dL 11/05/23 11/05/23 Range/Units 08:27 11:34 RBC (3.80-5.40) m/uL Hgb (11.4-16.0) gm/dL Plt Count (150-450) k/uL Lymphocytes # (1.0-4.8) k/uL Carbon Dioxide 33 H (22-30) mmol/L BUN 51 H (7-17) mg/dL Glucose 129 H (74-99) mg/dL POC Glucose (mg/dL) 157 H (70-110) mg/dL AST 45 H (14-36) U/L ALT 94 H (4-34) U/L Alkaline Phosphatase 188 H (38-126) U/L Total Protein 5.8 L (6.3-8.2) g/dL Albumin 3.2 L (3.5-5.0) g/dL Microbiology - Last 24 Hours (Table) 11/02/23 20:09 Blood Culture - Preliminary Blood Assessment and Plan (1) Influenza A Current Visit: Yes Status: Acute Code(s): J10.1 - FLU DUE TO OTH IDENT INFLUENZA VIRUS W OTH RESP MANIFEST SNOMED Code(s): 291792454 (2) Stage III pressure ulcer of back Current Visit: Yes Status: Acute Code(s): L89.103 - PRESSURE ULCER OF UNSPECIFIED PART OF BACK, STAGE 3 SNOMED Code(s): 88960222443015722 (3) Leukocytosis Current Visit: Yes Status: Acute Code(s): D72.829 - ELEVATED WHITE BLOOD CELL COUNT, UNSPECIFIED SNOMED Code(s): 532385040 (4) Elevated liver enzymes Current Visit: Yes Status: Acute Code(s): R74.8 - ABNORMAL LEVELS OF OTHER SERUM ENZYMES SNOMED Code(s): 917312929 Plan: 1patient presented to hospital with increasing shortness of breath which is likely multifactorial in this patient and he tested positive for influenza A however chest x-ray and CT has been suggestive of possible fluid overload and CHF may be contributing to some of her symptoms patient did not have any fever or elevated white count clinical suspicion low for secondary bacterial pneumonia. 2patient did have a chronic nonhealing wound to the mid back area, likely a stage III pressure ulcer with slough tissue but no surrounding redness clinic suspicion is low for infected wound 3patient did have a normal procalcitonin level 4local wound care to the mid back wound with Santyl followed by moist dressing and keep the area of the pressure 5patient to continue with Tamiflu to continue to finish 5-day course of therapy and continue with supportive care Dictation was produced using [employer] dictation software. please excuse any grammatical, word or spelling errors. Time with Patient: Less than 30
[2023-11-05 16:15] LABS: Glucose,Whole Blood 358 mg/dL (70-110)
[2023-11-05 20:00] LABS: Glucose,Whole Blood 443 mg/dL (70-110)
[2023-11-05] MEDS: INSULIN ASPART (NovoLOG) 100 UNIT/ML VIAL SQ ONE (20:13)
[2023-11-05] MEDS: OSELTAMIVIR 60 MG/10 ML ORAL SYRINGE PO SCH (20:30)
[2023-11-05] MEDS: INSULIN DETEMIR (LEVEMIR) 100 UNIT/ML SYR SQ SCH (21:51)
[2023-11-05 22:17] LABS: Glucose,Whole Blood 278 mg/dL (70-110)
--- NOTE | 2023-11-05 22:18 | PN ---
PROGRESS NOTE DATE OF SERVICE: 11/05/2023 SUBJECTIVE: This 88-year-old woman was admitted with CHF acute exacerbation with acute on chronic diastolic dysfunction, also had severe pulmonary hypertension. Chest x-ray done today, which was reviewed personally, showed some improvement. No chest pain, no palpitation. OBJECTIVE: VITAL SIGNS: Pulse is 63, blood pressure 137/76, respirations 18. CHEST: Few scattered rhonchi and crackles. ABDOMEN: Soft. NERVOUS SYSTEM: No focal deficits. LABORATORY DATA: Reviewed. ASSESSMENT: 1. CHF acute exacerbation with acute on chronic diastolic dysfunction. 2. Severe pulmonary hypertension. 3. Acute influenza A. 4. Hvoqfznc-cy-qtpkfe mitral regurgitation as well as ugswvwhb-kn-ahdzvu tricuspid regurgitation. 5. Acute renal failure. 6. Hypoglycemia with fluctuating blood sugars. 7. Acute hyperkalemia. 8. Elevated LFTs. 9. Thrombocytopenia. 10.Multiple medical issues. RECOMMENDATIONS: Recommended to continue current management, continue symptomatic treatment. Continue diuretics. Otherwise Tamiflu, reduced dose because of the renal functions. Prognosis guarded. Further recommendations to follow. MMODL / IJN: [id number] /
[2023-11-05] MEDS: INSULIN DETEMIR (LEVEMIR) 100 UNIT/ML SYR SQ ONE (22:54)
[2023-11-06 05:47] LABS: Glucose,Whole Blood 32 mg/dL (70-110)
[2023-11-06 05:49] LABS: Glucose,Whole Blood 34 mg/dL (70-110)
[2023-11-06 05:58] LABS: Glucose,Whole Blood 238 mg/dL (70-110)
[2023-11-06] MEDS: DEXTROSE 50% SYRINGE 50 ML IVP ONE (05:58)
[2023-11-06] MEDS ORDERED: DEXTROSE 50% SYRINGE 50 ML IVP PRN ×2 (06:01)
[2023-11-06 06:30] LABS: Glucose,Whole Blood 124 mg/dL (70-110)
[2023-11-06 06:35] LABS: African American GFR (CKD) 68 (>60 ml/min/1.73 sqM); Anion Gap 4 mmol/L; Blood Urea Nitrogen 56 mg/dL (7-17); Calcium 8.4 mg/dL (8.4-10.2); Carbon Dioxide 31 mmol/L (22-30); Chloride 103 mmol/L (98-107); Glucose 243 mg/dL (74-99); Non-African American GFR(CKD) 59 (>60 ml/min/1.73 sqM); Potassium 3.7 mmol/L (3.5-5.1); Sodium 138 mmol/L (137-145)
[2023-11-06] MEDS ORDERED: INSULIN DETEMIR (LEVEMIR) 100 UNIT/ML SYR SQ SCH (07:00)
[2023-11-06 07:58] LABS: Basophils # (A) 0.1 k/uL (0-0.2); Basophils % (A) 1 %; Eosinophils # (A) 0.1 k/uL (0-0.7); Eosinophils % (A) 1 %; HCT 32.9 % (34.0-46.0); HGB 10.6 gm/dL (11.4-16.0); Hypochromasia Slight; Lymphocytes # (A) 0.8 k/uL (1.0-4.8); Lymphocytes % (A) 11 %; MCH 31.5 pg (25.0-35.0); MCHC 32.2 g/dL (31.0-37.0); MCV 97.9 fL (80.0-100.0); Mean Platelet Volume 9.9; Monocytes # (A) 0.5 k/uL (0-1.0); Monocytes % (A) 6 %; Neutrophils # (A) 6.4 k/uL (1.3-7.7); Neutrophils % (A) 80 %; Platelet Count 152 k/uL (150-450); RBC 3.36 m/uL (3.80-5.40); RDW 14.9 % (11.5-15.5)
[2023-11-06 08:29] VITALS: BP 143/73; RESP 24; TEMP 97.5
[2023-11-06] MEDS: INSULIN DETEMIR (LEVEMIR) 100 UNIT/ML SYR SQ SCH (10:08)
[2023-11-06 11:19] LABS: Glucose,Whole Blood 165 mg/dL (70-110)
[2023-11-06 11:36] VITALS: PULSE 61
--- NOTE | 2023-11-06 12:54 | P.PN ---
Subjective Progress Note Date: 11/06/23 Principal diagnosis: Reason for follow-up is acute influenza A and mid back wound Patient is a 88-year-old female with a past medical history significant for diabetes mellitus hypertension congestive heart failure with history of right hip fracture for the patient has been out of the hospital and during one of the hospital stay the patient also developed pressure ulcer to the mid back area that has been there since July 2023, patient has been sent to the ER for evaluation of increasing shortness of breath and congested cough patient did tested positive for influenza and was mildly hypoxic chest x-ray was mostly CHF. On today's evaluation that is 11/06/2023, the patient is afebrile, patient is on 2 L nasal cannula oxygen, the patient denies chest pain shortness of breath and cough is decreased intensity mostly dry nature, patient denies nausea no vomiti ng no abdominal pain and no diarrhea. Patient did have white count of 8.0, creatinine 0.88 blood culture has been negative Objective - Vital Signs Vital signs: Vital Signs Temp 97.5 F L 11/06/23 06:45 Pulse 62 11/06/23 08:21 Resp 24 11/06/23 06:45 BP 143/73 11/06/23 06:45 Pulse Ox 95 11/06/23 08:14 FiO2 Intake & Output 11/05/23 11/06/23 11/06/23 18:59 06:59 18:59 Intake Total 354 480 Balance 354 480 Weight 80 kg 80 kg Intake: Oral 354 480 Other: Voiding Method External Catheter Toilet Toilet Diaper Diaper # Voids 3 # Bowel Movements 1 - Exam GENERAL DESCRIPTION: An elderly female up in the chair in no distress RESPIRATORY SYSTEM: Unlabored breathing , coarse breath sounds anteriorly HEART: S1 S2 regular rate and rhythm , ABDOMEN: Soft , no tenderness EXTREMITIES: No edema feet - Labs CBC & Chem 7: 11/06/23 05:54 11/06/23 05:54 Labs: Abnormal Lab Results - Last 24 Hours (Table) 11/05/23 11/05/23 11/05/23 Range/Units 11:34 16:13 19:59 RBC (3.80-5.40) m/uL Hgb (11.4-16.0) gm/dL Hct (34.0-46.0) % Lymphocytes # (1.0-4.8) k/uL Carbon Dioxide (22-30) mmol/L BUN (7-17) mg/dL Glucose (74-99) mg/dL POC Glucose (mg/dL) 157 H 358 H 443 H (70-110) mg/dL 11/05/23 11/06/23 11/06/23 Range/Units 22:15 05:45 05:47 RBC (3.80-5.40) m/uL Hgb (11.4-16.0) gm/dL Hct (34.0-46.0) % Lymphocytes # (1.0-4.8) k/uL Carbon Dioxide (22-30) mmol/L BUN (7-17) mg/dL Glucose (74-99) mg/dL POC Glucose (mg/dL) 278 H 32 L 34 L (70-110) mg/dL 11/06/23 11/06/23 11/06/23 Range/Units 05:54 05:54 05:55 RBC 3.36 L (3.80-5.40) m/uL Hgb 10.6 L (11.4-16.0) gm/dL Hct 32.9 L (34.0-46.0) % Lymphocytes # 0.8 L (1.0-4.8) k/uL Carbon Dioxide 31 H (22-30) mmol/L BUN 56 H (7-17) mg/dL Glucose 243 H (74-99) mg/dL POC Glucose (mg/dL) 238 H (70-110) mg/dL 11/06/23 11/06/23 Range/Units 06:28 11:18 RBC (3.80-5.40) m/uL Hgb (11.4-16.0) gm/dL Hct (34.0-46.0) % Lymphocytes # (1.0-4.8) k/uL Carbon Dioxide (22-30) mmol/L BUN (7-17) mg/dL Glucose (74-99) mg/dL POC Glucose (mg/dL) 124 H 165 H (70-110) mg/dL Microbiology - Last 24 Hours (Table) 11/02/23 20:09 Blood Culture - Preliminary Blood Assessment and Plan (1) Influenza A Current Visit: Yes Status: Acute Code(s): J10.1 - FLU DUE TO OTH IDENT INFLUENZA VIRUS W OTH RESP MANIFEST SNOMED Code(s): 251056425 (2) Stage III pressure ulcer of back Current Visit: Yes Status: Acute Code(s): L89.103 - PRESSURE ULCER OF UNSPECIFIED PART OF BACK, STAGE 3 SNOMED Code(s): 82976357873615264 (3) Leukocytosis Current Visit: Yes Status: Acute Code(s): D72.829 - ELEVATED WHITE BLOOD CELL COUNT, UNSPECIFIED SNOMED Code(s): 477196302 (4) Elevated liver enzymes Current Visit: Yes Status: Acute Code(s): R74.8 - ABNORMAL LEVELS OF OTHER SERUM ENZYMES SNOMED Code(s): 436707248 Plan: 1patient presented to hospital with increasing shortness of breath which is likely multifactorial in this patient and he tested positive for influenza A however chest x-ray and CT has been suggestive of possible fluid overload and CHF may be contributing to some of her symptoms patient did not have any fever or elevated white count clinical suspicion low for secondary bacterial pneumonia. 2patient did have a chronic nonhealing wound to the mid back area, likely a stage III pressure ulcer with slough tissue but no surrounding redness clinic suspicion is low for infected wound 3patient did have a normal procalcitonin level 4local wound care to the mid back wound with Santyl followed by moist dressing and keep the area of the pressure 5patient to finish a 5-day course of Tamiflu for underlying influenza and with a normal procalcitonin may not need any antibiotic on discharge discussed with the admitting team Dictation was produced using [employer] dictation software. please excuse any grammatical, word or spelling errors. Time with Patient: Less than 30
--- NOTE | 2023-11-06 12:58 | XR ---
EXAMINATION TYPE: XR chest 1V portable DATE OF EXAM: 11/06/2023 HISTORY: Shortness of breath. COMPARISON: November 21 TECHNIQUE: Single view of the chest is submitted. FINDINGS: Demonstrated are scattered senescent parenchymal change. Patchy perihilar and left medial basilar infiltrate persists although is much improved. Improving pul monary venous congestion. Mitral annular calcification noted. The heart is stable. Hilar and mediastinal structures are within normal limits. Degenerative changes are seen of the dorsal spine. IMPRESSION: 1. Patchy perihilar and left medial basilar infiltrate persists although is much improved. Improving pulmonary venous congestion.
--- NOTE | 2023-11-06 13:21 | P.DS ---
Providers Date of admission: 11/02/23 20:43 Expected date of discharge: 11/06/23 Attending physician: Elizabeth Newsome Consults: 11/03/23 12:57 Consult Physician Routine Consulting Provider: Manoj Brunner Consult Reason/Comments: flu Do you want consulting provider notified?: Yes Primary care physician: PRAVEEN PARHAM MD Hospital Course: Final diagnosis CHF exacerbation with acute on chronic diastolic dysfunction Severe pulmonary hypertension Acute influenza A infection Moderate to severe mitral regurgitation as well as moderate to severe tricuspid regurgitation Acute renal failure, improving Diabetes mellitus, type 2 insulin-dependent uncontrolled with hyper and hypoglycemia Obesity with a BMI of 31.2 Elevated LFTs Thrombocytopenia GI prophylaxis DVT prophylaxis Discharge disposition Patient is being discharged in a stable condition with guarded prognosis to [facility]. Patient will follow-up with Dr. Parham in the outpatient setting upon discharge. Patient is to continue with albuterol nebulized treatments along with Tamiflu for the next few days to complete the course and prednisone taper. Recommend follow-up with pulmonary and cardiology outpatient as scheduled. Total time taken is greater than 35 minutes. Hospital course This is a 88-year-old female who was recently admitted with shortness of breath with CHF acute exacerbation with diastolic dysfunction along with history of severe pulmonary hypertension also noted to have influenza A. Patient is continued on Tamiflu and has received antibiotics and will not require antibiot ics on discharge per ID recommendations. Patient also being monitored by pulmonary being followed on albuterol nebulized treatments along with steroids and will continue with steroid taper on discharge. Blood sugars have been elevated throughout the day and severely dropping at night and adjustments to insulins have been made as there is a pattern after dinner her blood sugar will be mildly elevated and then throughout the middle of the night is significantly dropping. Recommend long-acting throughout the day with continued sliding scale and Accu-Cheks before meals and at bedtime along with 2 AM. Patient to follow- up with pulmonary along with cardiology in the outpatient setting as well as primary care provider. Patient has been cleared by consultations. Please refer to consultation notes for further HPI. Chest x-ray today shows improvements in irrigation. Continue with breathing treatments along with incentive spirometer use at least 10 times every hour while awake. Currently no reports of chest pain, shortness of breath, or palpitations. Patient is afebrile. No reports of nausea or vomiting and patient is tolerating diet. [facility] be [facility] today. Guarded prognosis and high risk for readmission given patient's comorbidities and age Physical exam: Gen: This is a [88-year-old female who is awake, alert and oriented x 3, well-developed, well-nourished, elderly appearing, obese HEENT: Head is atraumatic, normocephalic. Pupils equal, round. Sclerae is anicteric. NECK: Supple. No JVD. No lymphadenopathy. No thyromegaly. LUNGS: Diminished breath sounds bilaterally with some scattered rhonchi. Some bronchial congestion noted with cough. No intercostal retractions. HEART: Regular rate and rhythm. No murmur. ABDOMEN: Soft. Bowel sounds are present. No masses. No tenderness. EXTREMITIES: No pedal edema. No calf tenderness. NEUROLOGICAL: Patient is awake, alert and oriented x3. Cranial nerves 2 through 12 are grossly intact. Please refer to medication reconciliation sheet for a list of medications. The impression and plan of care has been dictated by Rosario Murphy, Nurse Practitioner as directed. Dr. Jerod MD I have performed a history and examination and MDM of this patient, discussed the same with the dictator, and agree with the dictator's assessment and plan as written ,documented as a scribe. Based on total visit time, I have performed more than 50% of the visit. Patient Condition at Discharge: Fair Plan - Discharge Summary Discharge Rx Participant: No New Discharge Prescriptions: New INSULIN ASPART (NovoLOG) [NovoLOG (formulary)] 0 unit SQ ACHS each Furosemide [Lasix] 40 mg PO BID@0900,1600 tab Collagenase [Santyl Ointment] 1 applic TOPICAL DAILY each Albuterol Nebulized [Ventolin Nebulized] 2.5 mg INHALATION RT-QID ml Albuterol Nebulized [Ventolin Nebulized] 2.5 mg INHALATION RT-Q2H PRN ml PRN Reason: Shortness Of Breath Or Wheezing Oseltamivir 6Mg/ml Oral Susp [Tamiflu] 30 mg PO Q12HR 3 Days #6 each Continue polyethylene glycoL 3350 [Miralax] 17 gm PO DAILY carvediloL [Coreg] 25 mg PO BID Docusate [Colace] 100 mg PO BID Ergocalciferol (Vitamin D2) [Drisdol (50,000 Iu)] 1,250 mcg PO APPIAH Insulin Detemir [Levemir Flexpen] 25 units SQ DAILY #0 rOPINIRole HCL [Requip] 4 mg PO BID Albuterol Sulfate [Albuterol Sulfate Hfa] 2 puff INHALATION RT-Q6H DULoxetine HCL [Cymbalta] 60 mg PO BID HYDROcodone/APAP 5-325MG [Star 5-325] 1 tab PO Q4HR PRN #2 tab PRN Reason: Pain hydrALAZINE HCL [Apresoline] 50 mg PO TID Ferrous Sulfate [Iron (65 MG Elemental)] 325 mg PO SUMOWEFR predniSONE [Deltasone] 20 mg PO DAILY #2 tab Potassium Chloride ER [K-Dur 20] 40 meq PO BID tab Omeprazole 20 mg PO DAILY NIFEdipine XL [Procardia XL] 60 mg PO DAILY Cholestyramine (with Sugar) [Questran Packet] 4 gm PO BID Aspirin [Vazalore] 81 mg PO DAILY Atorvastatin [Lipitor] 20 mg PO DAILY Discontinued Insulin Lispro [Insulin Lispro Kwikpen U-100] See Protocol SQ AC-TID Furosemide [Lasix] 20 mg PO DAILY Discharge Medication List Docusate [Colace] 100 mg PO BID 10/08/23 [History] Ergocalciferol (Vitamin D2) [Drisdol (50,000 Iu)] 1,250 mcg PO APPIAH 10/08/23 [History] Ferrous Sulfate [Iron (65 MG Elemental)] 325 mg PO SUMOWEFR 10/08/23 [History] carvediloL [Coreg] 25 mg PO BID 10/08/23 [History] hydrALAZINE HCL [Apresoline] 50 mg PO TID 10/08/23 [History] polyethylene glycoL 3350 [Miralax] 17 gm PO DAILY 10/08/23 [History] Insulin Detemir [Levemir Flexpen] 25 units SQ DAILY #0 10/19/23 [Rx] Potassium Chloride ER [K-Dur 20] 40 meq PO BID tab 10/19/23 [Rx] predniSONE [Deltasone] 20 mg PO DAILY #2 tab 10/19/23 [Rx] Albuterol Sulfate [Albuterol Sulfate Hfa] 2 puff INHALATION RT-Q6H 11/02/23 [History] Aspirin [Vazalore] 81 mg PO DAILY 11/02/23 [History] Atorvastatin [Lipitor] 20 mg PO DAILY 11/02/23 [History] Cholestyramine (with Sugar) [Questran Packet] 4 gm PO BID 11/02/23 [History] DULoxetine HCL [Cymbalta] 60 mg PO BID 11/02/23 [History] NIFEdipine XL [Procardia XL] 60 mg PO DAILY 11/02/23 [History] Omeprazole 20 mg PO DAILY 11/02/23 [History] rOPINIRole HCL [Requip] 4 mg PO BID 11/02/23 [History] Albuterol Nebulized [Ventolin Nebulized] 2.5 mg INHALATION RT-Q2H PRN ml 11/06/23 [Rx] Albuterol Nebulized [Ventolin Nebulized] 2.5 mg INHALATION RT-QID ml 11/06/23 [Rx] Collagenase [Santyl Ointment] 1 applic TOPICAL DAILY each 11/06/23 [Rx] Furosemide [Lasix] 40 mg PO BID@0900,1600 tab 11/06/23 [Rx] HYDROcodone/APAP 5-325MG [Star 5-325] 1 tab PO Q4HR PRN #2 tab 11/06/23 [Rx] INSULIN ASPART (NovoLOG) [NovoLOG (formulary)] 0 unit SQ ACHS each 11/06/23 [Rx] Oseltamivir 6Mg/ml Oral Susp [Tamiflu] 30 mg PO Q12HR 3 Days #6 each 11/06/23 [Rx] Follow up Appointment(s)/Referral(s): PRAVEEN PARHAM MD [Primary Care Provider] - 1-2 days ([facility] please call for follow-up appointment.) Activity/Diet/Wound Care/Special Instructions: Patient is returning to [facility] Activity as tolerated Continue taking medications as prescribed Continue monitoring Accu-Cheks before meals and at bedtime as well as 2 AM as blood sugars have been dropping each night with adjustments to medications Continue diabetic heart healthy diet Follow-up CBC, CMP, magnesium in 2 to 3 days Follow-up primary care provider on discharge Continue 3 more days of Tamiflu to complete the course Discharge Disposition: TRANSFER TO SNF/ECF
[2023-11-08] MEDS ORDERED: ERGOCALCIFEROL 1,250 MCG (50,000 IU) CAPSULE PO SCH (09:00)
--- NOTE | 2024-01-06 22:22 | CDI ---
A Midback, stage 3 pressure ulcer is documented by Wound Care 11/03/23,Consultation Note . Based on this information and the findings below, is there an additional diagnosis that is clinically appropriate for this patient? History/Risk Factors: Clinical Indicators:Mid Back Ulcer Stage III Treated since July 2023 Location: Mid Back Laterality Unknown Wound description: Chronic Nonhealing Treatment: Treatted with Medihoney since August 20, 2023 Consults: Is there an additional diagnosis/laterality that is clinically appropriate for this patient? [ ] [insert location of ulcer] Pressure Ulcer Stage 1 [ ] [insert location of ulcer] Pressure Ulcer Stage 2 [ ] [insert location of ulcer] Pressure Ulcer Stage 3 [ ] [insert location of ulcer] Pressure Ulcer Stage 4 [ ] [insert location of ulcer] Pressure Ulcer unstageable [ ] [insert location of ulcer] Deep tissue injury [ ] Other condition, please specify [ ] Unable to determine Clinical Definitions: Stage 1 Pressure Ulcer: intact skin, non-blanching redness of local area Stage 2 Pressure Ulcer: Partial thickness, loss of dermis, pink wound bed Stage 3 Pressure Ulcer: Full thickness tissue loss Stage 4 Pressure Ulcer: Full thickness tissue loss with exposed bone, tendon, or muscle. Unstageable pressure ulcer: Full thickness tissue loss in which the base of the ulcer is covered by slough (yellow, carl, pimentel, green or brown) and/or eschar (carl, brown or black) in the wound bed. stage 3 pressure ulcer mid back MTDD
== END 2023-11-06 15:02 | DRG 291 ==
LOC: EC 19:29 → 3SCARD 20:43 → 4SSUR 11-05 22:03
PROVIDERS: ADMIT Hospitalist; ATTEND Hospitalist
DX: I11.0 Hypertensive heart disease with heart failure (principal); I50.33 Acute on chronic diastolic (congestive) heart failure; L89.123 Pressure ulcer of left upper back, stage 3; L89.113 Pressure ulcer of right upper back, stage 3; N17.9 Acute kidney failure, unspecified; I25.10 Atherosclerotic heart disease of native coronary artery without angina pectoris; E78.5 Hyperlipidemia, unspecified; E87.5 Hyperkalemia; J10.1 Influenza due to other identified influenza virus with other respiratory manifestations; D69.6 Thrombocytopenia, unspecified; I27.20 Pulmonary hypertension, unspecified; E11.65 Type 2 diabetes mellitus with hyperglycemia; E66.9 Obesity, unspecified; Z68.31 Body mass index [BMI] 31.0-31.9, adult; I08.1 Rheumatic disorders of both mitral and tricuspid valves; I45.10 Unspecified right bundle-branch block; Z79.899 Other long term (current) drug therapy; Z86.14 Personal history of Methicillin resistant Staphylococcus aureus infection; Z90.710 Acquired absence of both cervix and uterus; Z98.42 Cataract extraction status, left eye; Z98.41 Cataract extraction status, right eye; Z11.52 Encounter for screening for COVID-19; Z79.4 Long term (current) use of insulin; Z87.01 Personal history of pneumonia (recurrent)
CPT/HCPCS: 36415; 71045; 71046; 71250; 80048; 80053; 83605; 83735; 83880; 84132; 84145; 84484; 85025; 85379; 85610; 85730; 86140; 87040; 87636; 93005; 94640; 94760; 96374; 96375; 99291

== ENCOUNTER 2023-11-26 12:40 | Inpatient (IN) | payer MEDICARE, BC ==
[2023-11-26 13:06] LABS: Glucose,Whole Blood 532 mg/dL (70-110)
--- NOTE | 2023-11-26 13:07 | ED ---
General Adult HPI - General Source: EMS, RN notes reviewed, old records reviewed Mode of arrival: EMS Limitations: no limitations <Mars Rodriges - Last Filed: 11/26/23 19:28> - General Source: patient, EMS, RN notes reviewed Mode of arrival: EMS Limitations: no limitations <Alycia Narvaez - Last Filed: 11/28/23 06:42> - General Chief complaint: Recheck/Abnormal Lab/Rx Stated complaint: SOB Time Seen by Provider: 11/26/23 12:46 - History of Present Illness Initial comments: This is a 88-year-old female to ER for evaluation of severe shortness of breath of low oxygen. (Mars Rodriges) This is an 88-year-old female who presents to the emergency department for shortness of breath and hyperglycemia. Patient resides at [facility]. EMS received a call that the patient was short of breath. She wears 2 L of oxygen at baseline, however she was at 86% when they arrived and they had to increase her oxygen to 5 L. They also noted that the patient was hyperglycemic, but did not say specifically what her blood sugar was. They were also concerned about her blood pressure. Patient is a poor historian and states that she feels okay, however her daughter states that she has trouble explaining how she feels and tends to play everything off like its not a big deal. (Alycia Narvaez) - Related Data Home Medications Medication Instructions Recorded Confirmed Ergocalciferol (Vitamin D2) 1,250 mcg PO APPIAH 10/08/23 11/26/23 [Drisdol (50,000 Iu)] carvediloL [Coreg] 25 mg PO BID 10/08/23 11/26/23 hydrALAZINE HCL [Apresoline] 50 mg PO TID@0800,1300,1800 10/08/23 11/26/23 Albuterol Sulfate [Albuterol 2 puff INHALATION RT-Q6H 11/02/23 11/26/23 Sulfate Hfa] Aspirin [Vazalore] 81 mg PO DAILY 11/02/23 11/26/23 Atorvastatin [Lipitor] 20 mg PO DAILY 11/02/23 11/26/23 NIFEdipine XL [Procardia XL] 60 mg PO DAILY 11/02/23 11/26/23 Omeprazole 20 mg PO DAILY 11/02/23 11/26/23 rOPINIRole HCL [Requip] 4 mg PO BID 11/02/23 11/26/23 DULoxetine HCL [Cymbalta] 60 mg PO BID 11/26/23 11/26/23 Furosemide [Lasix] 40 mg PO BID@0800,1600 11/26/23 11/26/23 Insulin Glargine-Yfgn 30 units SQ DAILY 11/26/23 11/26/23 Insulin Lispro [Insulin Lispro See Protocol SQ AC-TID 11/26/23 11/26/23 Kwikpen U-100] Ipratropium-Albuterol Nebulize 3 ml INHALATION DIRECTED 11/26/23 11/26/23 [Duoneb 0.5 mg-3 mg/3 ml Soln] Previous Rx's Medication Instructions Recorded Potassium Chloride ER [K-Dur 20] 40 meq PO BID tab 10/19/23 predniSONE [Deltasone] 20 mg PO DAILY #2 tab 10/19/23 Collagenase [Santyl Ointment] 1 applic TOPICAL DAILY each 11/06/23 Allergies Allergy/AdvReac Type Severity Reaction Status Date / Time No Known Allergies Allergy Verified 11/26/23 14:40 Review of Systems ROS Other: All systems not noted in ROS Statement are negative. <Mars Rodriges - Last Filed: 11/26/23 19:28> ROS Other: All systems not noted in ROS Statement are negative. <Alycia Narvaez - Last Filed: 11/28/23 06:42> ROS Statement: Those systems with pertinent positive or pertinent negative responses have been documented in the HPI. Past Medical History Past Medical History: Heart Failure, Diabetes Mellitus, Hypertension, Pneumonia Additional Past Medical History / Comment(s): new CHF 09/2023, "kidney damage" History of Any Multi-Drug Resistant Organisms: MRSA Date of last positivie culture/infection: 07/29/23 MDRO Source:: sepsis Past Surgical History: Hysterectomy Additional Past Surgical History / Comment(s): R hip, cataract sx Past Anesthesia/Blood Transfusion Reactions: No Reported Reaction Smoking Status: Never smoker Past Alcohol Use History: None Reported Past Drug Use History: None Reported <Alycia Narvaez - Last Filed: 11/28/23 06:42> General Exam General appearance: alert, in no apparent distress, anxious, in distress Head exam: Present: atraumatic, normocephalic, normal inspection Eye exam: Present: normal appearance, PERRL, EOMI. Absent: scleral icterus, conjunctival injection, periorbital swelling ENT exam: Present: normal exam, mucous membranes moist Neck exam: Present: normal inspection. Absent: tenderness, meningismus, lymphadenopathy Respiratory exam: Present: normal lung sounds bilaterally. Absent: respiratory distress, wheezes, rales, rhonchi, stridor Cardiovascular Exam: Present: regular rate, normal rhythm, normal heart sounds. Absent: systolic murmur, diastolic murmur, rubs, gallop, clicks GI/Abdominal exam: Present: soft, normal bowel sounds. Absent: distended, tenderness, guarding, rebound, rigid Extremities exam: Present: normal inspection, full ROM, normal capillary refill. Absent: tenderness, pedal edema, joint swelling, calf tenderness Back exam: Present: normal inspection Neurological exam: Present: alert, oriented X3, CN II-XII intact Psychiatric exam: Present: normal affect, normal mood Skin exam: Present: warm, dry, intact, normal color. Absent: rash <Mars Rodriges - Last Filed: 11/26/23 19:28> Limitations: no limitations General appearance: alert, in no apparent distress Head exam: Present: atraumatic, normocephalic, normal inspection Respiratory exam: Present: decreased breath sounds, prolonged expiratory Cardiovascular Exam: Present: regular rate, normal rhythm, normal heart sounds. Absent: systolic murmur, diastolic murmur, rubs, gallop, clicks Neurological exam: Present: alert, oriented X3, CN II-XII intact Psychiatric exam: Present: normal affect, normal mood Skin exam: Present: warm, dry, intact, normal color. Absent: rash <Alycia Narvaez - Last Filed: 11/28/23 06:42> Course <Mars Rodriges - Last Filed: 11/26/23 19:28> Vital Signs 11/26/23 11/26/23 11/26/23 12:46 17:50 18:00 Temperature 97.8 F Pulse Rate 61 Respiratory 18 Rate Blood Pressure 104/57 107/67 O2 Sat by Pulse 95 97 Oximetry 11/26/23 11/26/23 20:03 21:00 Temperature Pulse Rate 62 61 Respiratory 18 18 Rate Blood Pressure 114/63 109/60 O2 Sat by Pulse 97 97 Oximetry - Reevaluation(s) Reevaluation #1: Medical records reviewed (Mars Rodriges) Medical Decision Making - Lab Data Result diagrams: 11/26/23 12:53 11/26/23 12:53 <Mars Rodriges - Last Filed: 11/26/23 19:28> - Lab Data Result diagrams: 11/27/23 04:36 11/27/23 04:36 - Radiology Data Radiology results: report reviewed, image reviewed <Alycia Narvaez - Last Filed: 11/28/23 06:42> - Medical Decision Making 88 female to ER for evaluation, patient is admitting (Mars Rodriges) This is an 88-year-old female who presents to the emergency department for shortness of breath. Was pt. sent in by a medical professional or institution? @ -[facility] Did you speak to anyone other than the patient for history? @ -EMS and her daughter provided the majority of the history. Did you review nursing and triage notes? @ -Yes, and I agree, it is accurate with regards to the patient's symptoms. Were old charts reviewed? @ -No Differential Diagnosis? @ -Differential Dyspnea: Coronary syndrome, arrhythmia, tamponade, asthma, COPD, pulmonary embolism, pneumonia, pneumothorax, pulmonary effusion, anaphylaxis, diabetic ketoacidosis, flailed chest, pulmonary contusion, diaphragmatic rupture, anemia, neuromuscular, this is not meant to be an all-inclusive list. EKG interpreted by me (3pts min.)? @ -EKG interpreted by me demonstrating the following: Sinus rhythm. Left axis deviation. Ventricular rate 62 bpm, TN interval 161 ms, QRS duration 132 ms, QTc 438 ms. X-rays interpreted by me (1pt min.)? @ -Chest x-ray obtained. My interpretation identifies pulmonary edema. CT interpreted by me (1pt min.)? @ -Not obtained U/S interpreted by me (1pt. min.)? @ -Not obtained What testing was considered but not performed? (CT, X-rays, U/S, labs)? Why? @ -None What meds were considered but not given? Why? @ -None Did you discuss the management of the patient with other professionals? @ -Yes, Dr. Abdi, who accepts the patient for admission to medicine. Did you reconcile home meds? @ -No Was smoking cessation discussed for >3mins.? @ -No Was critical care preformed (if so, how long)? @ -No Were there social determinants of health that impacted care today? How? (Homelessness, low income, unemployed, alcoholism, drug addiction, transportation, low edu. Level, literacy, decrease access to med. care, fdc, rehab)? @ -No Was there de-escalation of care discussed even if they declined? (Discuss DNR or withdrawal of care, Hospice)? @ -No What co-morbidities impacted this encounter? (DM, HTN, Smoking, COPD, CAD, Cancer, CVA, Hep., AIDS, mental health diagnosis, sleep apnea, morbid obesity)? @ -CHF, DM, HTN, renal disease Was patient admitted / discharged? @ -Admitted. Lab work obtained revealing leukocytosis with a white blood cell count of 22,000. She has mild hyperkalemia with a potassium of 5.3. Hyperglycemia is also present with a glucose of 531. While the patient is acetone positive, she is not acidotic to suggest DKA. BNP is also elevated at 3100. COVID, influenza, and RSV testing were negative. Chest x-ray obtained demonstrating mild cardiomegaly with trace pleural effusions and interval development of patchy confluent bilateral airspace disease. CHF/pulmonary edema and multifocal pneumonia are in the differential. Patient currently on 5 L of oxygen via nasal cannula, but is typically on 2 L at home. Urinalysis also demonstrates elevated white blood cells and many bacteria. Urine sent for culture. Based on the leukocytosis and chest x-ray findings, as well as patient's increased oxygen use, she was started on the pneumonia protocol. Blood and sputum cultures were obtained. She was started on azithromycin and ceftriaxone, which will also cover for the potential UTI. Patient admitted to medicine for pneumonia, UTI, and CHF exacerbation. Undiagnosed new problem with uncertain prognosis? @ -None Drug Therapy requiring intensive monitoring for toxicity (Heparin, Nitro, Insulin, Cardizem)? @ -None Were any procedures done? @ -None Diagnosis/symptom? @ -Pneumonia, UTI Acute, or Chronic, or Acute on Chronic? @ -Acute Uncomplicated (without systemic symptoms) or Complicated (systemic symptoms)? @ -Complicated Side effects of treatment? @ -None Exacerbation, Progression, or Severe Exacerbation] @ -Not applicable Poses a threat to life or bodily function? @ -Yes Diagnosis/symptom? @ -CHF exacerbation Acute, or Chronic, or Acute on Chronic? @ -Acute on chronic Uncomplicated (without systemic symptoms) or Complicated (systemic symptoms)? @ -Complicated Side effects of treatment? @ -None Exacerbation, Progression, or Severe Exacerbation] @ -Exacerbation Poses a threat to life or bodily function? @ -Yes This case was discussed in detail with the attending ED physician. Dr. Rodriges. Presentation, findings, and treatment plan discussed in detail as well. (Alycia Narvaez) - Lab Data Lab Results 11/26/23 11/26/23 11/26/23 Range/Units 12:51 12:53 12:53 WBC 22.4 H (3.8-10.6) k/uL RBC 3.04 L (3.80-5.40) m/uL Hgb 9.5 L (11.4-16.0) gm/dL Hct 30.4 L (34.0-46.0) % MCV 100.0 (80.0-100.0) fL MCH 31.3 (25.0-35.0) pg MCHC 31.3 (31.0-37.0) g/dL RDW 15.7 H (11.5-15.5) % Plt Count 157 (150-450) k/uL MPV 9.5 Neutrophils % 97 % Lymphocytes % 1 % Monocytes % 2 % Eosinophils % 0 % Basophils % 0 % Neutrophils # 21.6 H (1.3-7.7) k/uL Lymphocytes # 0.3 L (1.0-4.8) k/uL Monocytes # 0.4 (0-1.0) k/uL Eosinophils # 0.1 (0-0.7) k/uL Basophils # 0.0 (0-0.2) k/uL Hypochromasia Moderate Macrocytosis Slight PT 11.0 (10.0-12.5) sec INR 1.0 (<1.2) APTT 26.0 (22.0-30.0) sec Sodium (137-145) mmol/L Potassium (3.5-5.1) mmol/L Chloride (98-107) mmol/L Carbon Dioxide (22-30) mmol/L Anion Gap mmol/L BUN (7-17) mg/dL Creatinine (0.52-1.04) mg/dL Est GFR (CKD-EPI)AfAm (>60 ml/min/1.73 sqM) Est GFR (CKD-EPI)NonAf (>60 ml/min/1.73 sqM) Glucose (74-99) mg/dL POC Glucose (mg/dL) (70-110) mg/dL POC Glu Product Marketing Coordinator ID Plasma Lactic Acid Luis M (0.7-2.0) mmol/L Calcium (8.4-10.2) mg/dL Phosphorus (2.5-4.5) mg/dL Magnesium (1.6-2.3) mg/dL Total Bilirubin (0.2-1.3) mg/dL AST (14-36) U/L ALT (4-34) U/L Alkaline Phosphatase (38-126) U/L Troponin I (0.000-0.034) ng/mL NT-Pro-B Natriuret Pep pg/mL Total Protein (6.3-8.2) g/dL Albumin (3.5-5.0) g/dL Procalcitonin (0.02-0.09) ng/mL Urine Color Urine Appearance (Clear) Urine pH (5.0-8.0) Ur Specific [place] (1.001-1.035) Urine Protein (Negative) Urine Glucose (UA) (Negative) Urine Ketones (Negative) Urine Blood (Negative) Urine Nitrite (Negative) Urine Bilirubin (Negative) Urine Urobilinogen (<2.0) mg/dL Ur Leukocyte Esterase (Negative) Urine RBC (0-5) /hpf Urine WBC (0-5) /hpf Ur Squamous Epith Cells (0-4) /hpf Urine Bacteria (None) /hpf Hyaline Casts (0-2) /lpf Urine Mucus (None) /hpf Acetone, Qual (Negative) Influenza Type A (PCR) Not Detected (Not Detectd) Influenza Type B (PCR) Not Detected (Not Detectd) RSV (PCR) Not Detected (Not Detectd) SARS-CoV-2 (PCR) Not Detected (Not Detectd) 11/26/23 11/26/23/24 Range/Units 12:53 12:53 12:53 WBC (3.8-10.6) k/uL RBC (3.80-5.40) m/uL Hgb (11.4-16.0) gm/dL Hct (34.0-46.0) % MCV (80.0-100.0) fL MCH (25.0-35.0) pg MCHC (31.0-37.0) g/dL RDW (11.5-15.5) % Plt Count (150-450) k/uL MPV Neutrophils % % Lymphocytes % % Monocytes % % Eosinophils % % Basophils % % Neutrophils # (1.3-7.7) k/uL Lymphocytes # (1.0-4.8) k/uL Monocytes # (0-1.0) k/uL Eosinophils # (0-0.7) k/uL Basophils # (0-0.2) k/uL Hypochromasia Macrocytosis PT (10.0-12.5) sec INR (<1.2) APTT (22.0-30.0) sec Sodium 135 L (137-145) mmol/L Potassium 5.3 H (3.5-5.1) mmol/L Chloride 106 (98-107) mmol/L Carbon Dioxide 23 (22-30) mmol/L Anion Gap 6 mmol/L BUN 60 H (7-17) mg/dL Creatinine 1.23 H (0.52-1.04) mg/dL Est GFR (CKD-EPI)AfAm 45 (>60 ml/min/1.73 sqM) Est GFR (CKD-EPI)NonAf 39 (>60 ml/min/1.73 sqM) Glucose 531 H* (74-99) mg/dL POC Glucose (mg/dL) (70-110) mg/dL POC Glu Product Marketing Coordinator ID Plasma Lactic Acid Luis M 1.4 (0.7-2.0) mmol/L Calcium 8.8 (8.4-10.2) mg/dL Phosphorus 3.6 (2.5-4.5) mg/dL Magnesium 1.7 (1.6-2.3) mg/dL Total Bilirubin 0.7 (0.2-1.3) mg/dL AST 31 (14-36) U/L ALT 33 (4-34) U/L Alkaline Phosphatase 189 H (38-126) U/L Troponin I (0.000-0.034) ng/mL NT-Pro-B Natriuret Pep 3100 pg/mL Total Protein 5.7 L (6.3-8.2) g/dL Albumin 3.2 L (3.5-5.0) g/dL Procalcitonin (0.02-0.09) ng/mL Urine Color Colorless Urine Appearance Cloudy H (Clear) Urine pH 5.0 (5.0-8.0) Ur Specific [place] 1.009 (1.001-1.035) Urine Protein Negative (Negative) Urine Glucose (UA) 3+ H (Negative) Urine Ketones Negative (Negative) Urine Blood Negative (Negative) Urine Nitrite Negative (Negative) Urine Bilirubin Negative (Negative) Urine Urobilinogen <2.0 (<2.0) mg/dL Ur Leukocyte Esterase Small H (Negative) Urine RBC 1 (0-5) /hpf Urine WBC 10 H (0-5) /hpf Ur Squamous Epith Cells <1 (0-4) /hpf Urine Bacteria Many H (None) /hpf Hyaline Casts 23 H (0-2) /lpf Urine Mucus Rare H (None) /hpf Acetone, Qual Positive (Negative) Influenza Type A (PCR) (Not Detectd) Influenza Type B (PCR) (Not Detectd) RSV (PCR) (Not Detectd) SARS-CoV-2 (PCR) (Not Detectd) 11/26/23 11/26/23 11/26/23 Range/Units 12:53 12:53 13:05 WBC (3.8-10.6) k/uL RBC (3.80-5.40) m/uL Hgb (11.4-16.0) gm/dL Hct (34.0-46.0) % MCV (80.0-100.0) fL MCH (25.0-35.0) pg MCHC (31.0-37.0) g/dL RDW (11.5-15.5) % Plt Count (150-450) k/uL MPV Neutrophils % % Lymphocytes % % Monocytes % % Eosinophils % % Basophils % % Neutrophils # (1.3-7.7) k/uL Lymphocytes # (1.0-4.8) k/uL Monocytes # (0-1.0) k/uL Eosinophils # (0-0.7) k/uL Basophils # (0-0.2) k/uL Hypochromasia Macrocytosis PT (10.0-12.5) sec INR (<1.2) APTT (22.0-30.0) sec Sodium (137-145) mmol/L Potassium (3.5-5.1) mmol/L Chloride (98-107) mmol/L Carbon Dioxide (22-30) mmol/L Anion Gap mmol/L BUN (7-17) mg/dL Creatinine (0.52-1.04) mg/dL Est GFR (CKD-EPI)AfAm (>60 ml/min/1.73 sqM) Est GFR (CKD-EPI)NonAf (>60 ml/min/1.73 sqM) Glucose (74-99) mg/dL POC Glucose (mg/dL) 532 H (70-110) mg/dL POC Glu Product Marketing Coordinator ID Maria Esther Andrews Plasma Lactic Acid Luis M (0.7-2.0) mmol/L Calcium (8.4-10.2) mg/dL Phosphorus (2.5-4.5) mg/dL Magnesium (1.6-2.3) mg/dL Total Bilirubin (0.2-1.3) mg/dL AST (14-36) U/L ALT (4-34) U/L Alkaline Phosphatase (38-126) U/L Troponin I <0.012 (0.000-0.034) ng/mL NT-Pro-B Natriuret Pep pg/mL Total Protein (6.3-8.2) g/dL Albumin (3.5-5.0) g/dL Procalcitonin 0.35 H (0.02-0.09) ng/mL Urine Color Urine Appearance (Clear) Urine pH (5.0-8.0) Ur Specific [place] (1.001-1.035) Urine Protein (Negative) Urine Glucose (UA) (Negative) Urine Ketones (Negative) Urine Blood (Negative) Urine Nitrite (Negative) Urine Bilirubin (Negative) Urine Urobilinogen (<2.0) mg/dL Ur Leukocyte Esterase (Negative) Urine RBC (0-5) /hpf Urine WBC (0-5) /hpf Ur Squamous Epith Cells (0-4) /hpf Urine Bacteria (None) /hpf Hyaline Casts (0-2) /lpf Urine Mucus (None) /hpf Acetone, Qual (Negative) Influenza Type A (PCR) (Not Detectd) Influenza Type B (PCR) (Not Detectd) RSV (PCR) (Not Detectd) SARS-CoV-2 (PCR) (Not Detectd) Critical Care Time Critical Care Time: Yes Total Critical Care Time: 31 <Mars Rodriges - Last Filed: 11/26/23 19:28> Disposition Is patient prescribed a controlled substance at d/c from ED?: No <Mars Rodriges - Last Filed: 11/26/23 19:28> Time of Disposition: 16:00 <Alycia Narvaez - Last Filed: 11/28/23 06:42> Clinical Impression: CHF exacerbation, Multifocal pneumonia, Acute exacerbation of chronic obstru ctive pulmonary disease, Congestive heart failure, Hypoxia Disposition: ADMITTED IP TO THIS HOSP Condition: Serious
[2023-11-26 13:36] LABS: Basophils % (A) 0 %; Eosinophils # (A) 0.1 k/uL (0-0.7); Eosinophils % (A) 0 %; HCT 30.4 % (34.0-46.0); HGB 9.5 gm/dL (11.4-16.0); Hypochromasia Moderate; Lymphocytes # (A) 0.3 k/uL (1.0-4.8); Lymphocytes % (A) 1 %; MCH 31.3 pg (25.0-35.0); MCHC 31.3 g/dL (31.0-37.0); Macrocytosis Slight; Mean Platelet Volume 9.5; Monocytes # (A) 0.4 k/uL (0-1.0); Monocytes % (A) 2 %; Neutrophils # (A) 21.6 k/uL (1.3-7.7); Neutrophils % (A) 97 %; Platelet Count 157 k/uL (150-450); RBC 3.04 m/uL (3.80-5.40); RDW 15.7 % (11.5-15.5); WBC 22.4 k/uL (3.8-10.6)
[2023-11-26 13:41] LABS: ALT 33 U/L (4-34); AST 31 U/L (14-36); African American GFR (CKD) 45 (>60 ml/min/1.73 sqM); Albumin 3.2 g/dL (3.5-5.0); Alkaline Phosphatase 189 U/L (38-126); Anion Gap 6 mmol/L; Blood Urea Nitrogen 60 mg/dL (7-17); Calcium 8.8 mg/dL (8.4-10.2); Carbon Dioxide 23 mmol/L (22-30); Chloride 106 mmol/L (98-107); Magnesium 1.7 mg/dL (1.6-2.3); Non-African American GFR(CKD) 39 (>60 ml/min/1.73 sqM); Phosphorus 3.6 mg/dL (2.5-4.5); Potassium 5.3 mmol/L (3.5-5.1); Sodium 135 mmol/L (137-145); Total Bilirubin 0.7 mg/dL (0.2-1.3); Total Protein 5.7 g/dL (6.3-8.2)
[2023-11-26 13:48] LABS: NT-Pro-B-Type Natriuretic Pept 3100 pg/mL
[2023-11-26 13:50] LABS: Glucose 531 mg/dL (74-99)
--- NOTE | 2023-11-26 14:58 | XR ---
EXAMINATION TYPE: XR chest 2V DATE OF EXAM: 11/26/2023 COMPARISON: 11/06/2023 HISTORY: 88 year-old female shortness of breath, difficulty breathing TECHNIQUE: AP and lateral views FINDINGS: Heart mildly enlarged. Atherosclerotic calcifications throughout the aorta. In the interval, there is been the development of diffuse patchy and confluent airspace opacities. Trace pleural effusions. IMPRESSION: Mild cardiomegaly with trace pleural effusions and interval development of patchy and confluent bilat eral airspace disease. Both CHF/pulmonary edema and multifocal pneumonia are in the differential; the former is favored. Clinically correlate.
[2023-11-26] MEDS ORDERED: PNEUMONIA PROTOCOL UTILIZED 1 EACH MISC PO PRN (15:18)
[2023-11-26 15:34] LABS: Appearance,Urine Cloudy (Clear); Bacteria,Urine Many /hpf; Bilirubin,Urine Negative (Negative); Blood,Urine Negative (Negative); Color,Urine Colorless; Glucose,Urine (UA) 3+ (Negative); Hyaline Casts,Urine 23 /lpf (0-2); Ketones,Urine Negative (Negative); Leukocyte Esterase,Urine Small (Negative); Mucus,Urine Rare /hpf; Nitrite,Urine Negative (Negative); Protein,Urine Negative (Negative); RBC,Urine 1 /hpf (0-5); Specific Gravity,Urine 1.009 (1.001-1.035); Squamous Epithelial Cell,Urine <1 /hpf (0-4); Urobilinogen,Urine <2.0 mg/dL (<2.0); WBC,Urine 10 /hpf (0-5)
[2023-11-26] MEDS ORDERED: NALOXONE 0.4 MG/ML 1 ML VIAL IV PRN (15:58)
[2023-11-26] MEDS ORDERED: ONDANSETRON 4 MG/2 ML VIAL IVP PRN (15:58)
[2023-11-26] MEDS: INSULIN REGULAR 100 UNIT/ML VIAL (IV) IV ONE (16:47)
[2023-11-26] MEDS: FUROSEMIDE 10 MG/ML 4 ML VIAL IV STA (17:19)
[2023-11-26] MEDS: SODIUM ZIRCONIUM CYCLOSILICATE 10 GM PACKET PO ONE (17:21)
[2023-11-26] MEDS: AZITHROMYCIN 500 MG in SODIUM CHLORIDE 0.9% 250 ML IVPB STA (19:07)
[2023-11-26 19:27] LABS: Glucose,Whole Blood 465 mg/dL (70-110)
[2023-11-26 23:00] LABS: Glucose,Whole Blood 422 mg/dL (70-110)
[2023-11-27] MEDS: INSULIN DETEMIR (LEVEMIR) 100 UNIT/ML SYR SQ SCH ×2 (00:12→20:21)
[2023-11-27] MEDS: INSULIN ASPART (NovoLOG) 100 UNIT/ML VIAL SQ STA (00:12)
[2023-11-27] MEDS: DULoxetine HCL 60 MG CAPSULE.DR PO SCH (00:14)
--- NOTE | 2023-11-27 05:06 | P.CNPUL ---
History of Present Illness Consult date: 11/27/23 Requesting physician: Jules Singh Reason for consult: dyspnea Chief complaint: Shortness of breath History of present illness: I am seeing this patient in consultation today 11/27/2023 after she was sent from her local ECF after being noted to be short of breath and hypoxic. Patient is a 88-year-old white female with past medical history significant for congestive heart failure, chronic hypoxemic respiratory failure on 2 L O2 at baseline, diabetes mellitus, hypertension, hyperlipidemia, and recent right- sided hip fracture with prolonged hospitalization at outside facility. She resides at [facility]. She had a recent hospitalization at our facility in September of this year for congestive heart failure. Echocardiogram done 10/09/2023 showed a preserved left ventricular ejection fraction, moderate mitral regurgitation, moderate to severe tricuspid regurgitation, and severe pulmonary hypertension. There was a repeat hospital admission earlier in October of this year for similar symptoms. She was incidentally noted to be influenza A positive. She was discharged back to her ECF 11/06/2023. She has been taking Lasix 40 mg twice daily. She has completed her course of Tamiflu. Patient returns after progressively worsening dyspnea while at [facility]. She was noted to be hypoxic on her chronic 2 L/min nasal cannula. She was brought in by EMS yesterday afternoon. Patient is currently resting in bed, on 4 L/min nasal cannula, in no acute distress. She does have worsening lower extremity edema. Denies any chest pain, heart palpitations, light headedness, orthopnea, PND. Denies any fevers, chills, cough, hemoptysis. Chest x-ray done on arrival appears to show diffuse pulmonary edema and mild cardiomegaly. Superimposed multifocal pneumonia could be within the differential. CBC does show leukocytosis with a WBC count of 22.4, hemoglobin 9.5, hematocrit 30.4, platelets 157. BMP on arrival: Sodium 135, potassium 5.3, chloride 106, serum bicarb 23, BUN 60, creatinine 1.23, glucose 531. Lactic 1.4. Troponin less than 0.012. NT proBNP 3100. Procalcitonin 0.35. Urinalysis shows small leukocyte esterase and pyuria. Negative for influenza, RSV, COVID. Patient is empirically covered on azithromycin and Rocephin. Vital signs are stable. Review of Systems REVIEW OF SYSTEMS: CONSTITUTIONAL: Denies any recent significant weight loss or weight gain. EYES: Denies change in vision. EARS, NOSE, MOUTH, THROAT: Denies headaches, denies sore throat. CARDIOVASCULAR: Denies chest pain, palpitations or syncopal episodes. Admits worsening lower extremity swelling RESPIRATORY: See HPI GASTROINTESTINAL: Denies change in appetite, abdominal pain, nausea and vomiting, or diarrhea GENITOURINARY: Denies hematuria, denies infections. MUSKULOSKELETAL: Denies pain, denies swelling. INTEGUMENTARY: Denies rash, denies eczema. NEUROLOGICAL: Denies recent memory loss, no recent seizure activity. PSYCHIATRIC: Denies anxiety, denies depression. HEMATOLOGIC/LYMPHATIC: Denies anemia, denies enlarged lymph node Past Medical History Past Medical History: Heart Failure, Diabetes Mellitus, Hypertension, Pneumonia Additional Past Medical History / Comment(s): new CHF 09/2023, "kidney damage" History of Any Multi-Drug Resistant Organisms: MRSA Date of last positivie culture/infection: 07/29/23 MDRO Source:: sepsis Past Surgical History: Hysterectomy Additional Past Surgical History / Comment(s): R hip, cataract sx Past Anesthesia/Blood Transfusion Reactions: No Reported Reaction Past Psychological History: No Psychological Hx Reported Smoking Status: Unknown if ever smoked Past Alcohol Use History: None Reported Past Drug Use History: None Reported Medications and Allergies Home Medications Medication Instructions Recorded Confirmed Type Ergocalciferol (Vitamin D2) 1,250 mcg PO APPIAH 10/08/23 11/26/23 History [Drisdol (50,000 Iu)] carvediloL [Coreg] 25 mg PO BID 10/08/23 11/26/23 History hydrALAZINE HCL [Apresoline] 50 mg PO TID@0800,1300,1800 10/08/23 11/26/23 History Potassium Chloride ER [K-Dur 20] 40 meq PO BID tab 10/19/23 11/26/23 Rx predniSONE [Deltasone] 20 mg PO DAILY #2 tab 10/19/23 11/26/23 Rx Albuterol Sulfate [Albuterol 2 puff INHALATION RT-Q6H 11/02/23 11/26/23 History Sulfate Hfa] Aspirin [Vazalore] 81 mg PO DAILY 11/02/23 11/26/23 History Atorvastatin [Lipitor] 20 mg PO DAILY 11/02/23 11/26/23 History NIFEdipine XL [Procardia XL] 60 mg PO DAILY 11/02/23 11/26/23 History Omeprazole 20 mg PO DAILY 11/02/23 11/26/23 History rOPINIRole HCL [Requip] 4 mg PO BID 11/02/23 11/26/23 History Collagenase [Santyl Ointment] 1 applic TOPICAL DAILY each 11/06/23 11/26/23 Rx DULoxetine HCL [Cymbalta] 60 mg PO BID 11/26/23 11/26/23 History Furosemide [Lasix] 40 mg PO BID@0800,1600 11/26/23 11/26/23 History Insulin Glargine-Yfgn 30 units SQ DAILY 11/26/23 11/26/23 History Insulin Lispro [Insulin Lispro See Protocol SQ AC-TID 11/26/23 11/26/23 History Kwikpen U-100] Ipratropium-Albuterol Nebulize 3 ml INHALATION DIRECTED 11/26/23 11/26/23 History [Duoneb 0.5 mg-3 mg/3 ml Soln] Allergies Allergy/AdvReac Type Severity Reaction Status Date / Time No Known Allergies Allergy Verified 11/26/23 14:40 Physical Exam Vitals: Vital Signs Temp Pulse Pulse Resp BP BP Pulse Ox 11/27/23 01:16 60 111/64 96 11/26/23 22:45 97.4 F L 66 13 119/66 96 11/26/23 21:00 61 18 109/60 97 11/26/23 20:03 62 18 114/63 97 11/26/23 18:00 97 11/26/23 17:50 107/67 11/26/23 12:46 97.8 F 61 18 104/57 95 Intake and Output 11/26/23 11/26/23 11/27/23 14:59 22:59 06:59 Other: Weight 66.224 kg 66.224 kg 64.5 kg GENERAL EXAM: Alert, 88-year-old white female, hard of hearing, comfortable in no apparent distress. HEAD: Normocephalic and atraumatic EYES: Normal reaction of pupils, equal size. NOSE: Clear with pink turbinates. THROAT: No erythema or exudates. NECK: No masses, no JVD. CHEST: No chest wall deformity. LUNGS: Equal air entry with bibasilar crackles. No wheeze, rhonchi or focal d ullness. On 4 L/min nasal cannula. No conversational dyspnea or accessory muscle use while at rest.. CVS: S1 and S2 normal with soft grade 1/6 systolic murmur, regular rhythm. No other extra heart sounds ABDOMEN: No hepatosplenomegaly, active bowel sounds, no guarding or rigidity. SPINE: No scoliosis or deformity SKIN: No rashes CENTRAL NERVOUS SYSTEM: No focal deficits, tone is normal in all 4 extremities. EXTREMITIES: There is 4+ bilateral lower extremity pitting edema. Clubbing, or cyanosis. Peripheral pulses are intact. Results - Laboratory Findings CBC and BMP: 11/27/23 04:36 11/27/23 04:36 PT/INR, D-dimer PT 11.0 sec (10.0-12.5) 11/26/23 12:53 INR 1.0 (<1.2) 11/26/23 12:53 Abnormal lab findings: Abnormal Labs 11/26/23 11/26/23 11/26/23 12:53 12:53 12:53 WBC 22.4 H RBC 3.04 L Hgb 9.5 L Hct 30.4 L RDW 15.7 H Neutrophils # 21.6 H Lymphocytes # 0.3 L Sodium 135 L Potassium 5.3 H BUN 60 H Creatinine 1.23 H Glucose 531 H* POC Glucose (mg/dL) Alkaline Phosphatase 189 H Total Protein 5.7 L Albumin 3.2 L Procalcitonin Urine Appearance Cloudy H Urine Glucose (UA) 3+ H Ur Leukocyte Esterase Small H Urine WBC 10 H Urine Bacteria Many H Hyaline Casts 23 H Urine Mucus Rare H 11/26/23 11/26/23 11/26/23 12:53 13:05 19:21 WBC RBC Hgb Hct RDW Neutrophils # Lymphocytes # Sodium Potassium BUN Creatinine Glucose POC Glucose (mg/dL) 532 H 465 H Alkaline Phosphatase Total Protein Albumin Procalcitonin 0.35 H Urine Appearance Urine Glucose (UA) Ur Leukocyte Esterase Urine WBC Urine Bacteria Hyaline Casts Urine Mucus 11/26/23 22:59 WBC RBC Hgb Hct RDW Neutrophils # Lymphocytes # Sodium Potassium BUN Creatinine Glucose POC Glucose (mg/dL) 422 H Alkaline Phosphatase Total Protein Albumin Procalcitonin Urine Appearance Urine Glucose (UA) Ur Leukocyte Esterase Urine WBC Urine Bacteria Hyaline Casts Urine Mucus - Diagnostic Findings Chest x-ray: image reviewed Assessment and Plan Assessment: Acute on chronic hypoxemic respiratory failure, likely secondary to exacerbation of diastolic congestive heart failure, however, superimposed multifocal pneumonia cannot be excluded at this time. Chest x-ray shows diffuse patchy fluffy infiltrates and mild cardiomegaly concerning for pulmonary edema and/or multifocal pneumonia is within the differential. NT proBNP was elevated at 3100. Chronic diastolic heart failure and valvular heart disease with moderate to severe mitral regurgitation and severe tricuspid regurgitation with secondary pulmonary hypertension. Left ventricular ejection fraction was estimated at 55 to 60% on most recent echocardiogram. Chronic hypoxemic respiratory failure, secondary to above Leukocytosis Acute kidney injury Possible urinary tract infection Benign essential hypertension History of hyperlipidemia Diabetes mellitus type 2 History of fall with right hip fracture and recent complicated hospital stay at outside facility ECF resident Plan: Patient's medications, labs, chest x-ray reviewed Continue supplemental oxygen Start patient on Lasix 40 mg twice daily Continue empiric antibiotics. Procalcitonin was mildly elevated 0.35. Blood cultures are pending. Negative for influenza RSV, COVID Patient may also have a urinary tract infection, UA shows pyuria and small leukocytes Hyperglycemia is being managed by admitting We will continue to follow I have personally seen and examined the patient, performed the documentation and the assessment and plan as written. Number of minutes spent on the visit:20 This is a joint evaluation that was done along with the nurse practitioner. The patient is being seen for worsening shortness of breath and acute hypoxic respiratory failure. I reviewed the series of chest x-ray. The chest x-ray is consistent with CHF with increased incision infiltrates bilaterally and increased pulmonary vascular marking and evidence of pulmonary edema. The patient's proBNP level is also elevated. At this point in time, the patient is on oxygen at 4 L/min nasal cannula. No clear indication for pneumonia. The patient has no significant leukocytosis. No aspiration. The white cell count is elevated and this needs to be monitored. The patient also has a creatinine of 1.5 consistent with an acute kidney injury. I discussed the case with the granddaughter at the bedside. The plan is to cover the patient with antibiotics in the same time offer the patient diuretics with Lasix 40 mg IV push every 12 hours. Monitor renal function. Repeat chest x-ray within the next 24 hours. Will continue to follow. My overa ll impression is that the patient is having episodic pulmonary edema related to her valvular heart disease. This evaluation was done in more than 30 minutes. Time with Patient: Greater than 30
[2023-11-27 05:38] LABS: Glucose,Whole Blood 67 mg/dL (70-110)
[2023-11-27] MEDS: INSULIN ASPART (NovoLOG) 100 UNIT/ML VIAL SQ SCH (05:44)
[2023-11-27 06:09] LABS: Glucose,Whole Blood 118 mg/dL (70-110)
[2023-11-27] MEDS ORDERED: FUROSEMIDE 10 MG/ML 4 ML VIAL IV SCH (08:00)
[2023-11-27] MEDS: FUROSEMIDE 10 MG/ML 4 ML VIAL IV SCH (09:17)
[2023-11-27 09:34] LABS: Basophils # (A) 0.03 X 10*3/uL (0.00-0.10); Basophils % (A) 0.2 %; Eosinophils # (A) 0.02 X 10*3/uL (0.04-0.35); Eosinophils % (A) 0.1 %; HCT 28.7 % (37.2-46.3); HGB 9.1 g/dL (12.0-15.0); Lymphocytes # (A) 0.58 X 10*3/uL (0.90-5.00); MCH 30.1 pg (27.0-32.0); MCHC 31.7 g/dL (32.0-37.0); Mean Platelet Volume 11.9 FL (9.5-12.2); Monocytes # (A) 0.71 X 10*3/uL (0.20-1.00); Monocytes % (A) 3.7 %; NRBC Per 100 WBC 0 X 10*3/uL (0.00-0.01); Neutrophils # (A) 17.62 X 10*3/uL (1.80-7.70); Neutrophils % (A) 92.3 %; Platelet Count 159 X 10*3/uL (140-440); RBC 3.02 X 10*6/uL (4.10-5.20); RDW 16.1 % (11.5-14.5)
[2023-11-27 09:44] LABS: BUN/Creat Ratio 35.07 Ratio (12.00-20.00); Blood Urea Nitrogen 52.6 mg/dL (9.0-27.0); Calcium 9.2 mg/dL (8.7-10.3); Carbon Dioxide 26.4 mmol/L (21.6-31.8); Chloride 102 mmol/L (96-109); Glucose 79 mg/dL (70-110); Potassium 3.9 mmol/L (3.5-5.5); Sodium 141 mmol/L (135-145)
[2023-11-27] MEDS: AZITHROMYCIN 500 MG TAB PO SCH (10:04)
[2023-11-27 11:19] LABS: Glucose,Whole Blood 56 mg/dL (70-110)
[2023-11-27 12:05] LABS: Glucose,Whole Blood 107 mg/dL (70-110)
--- NOTE | 2023-11-27 16:03 | P.HPIM ---
History of Present Illness H&P Date: 11/27/23 Chief Complaint: Shortness of breath 88-year-old female who presents to the emergency department for shortness of breath and hyperglycemia. Patient resides at [facility]. EMS received a call that the patient was short of breath. She wears 2 L of oxygen at baseline, however she was at 86% when they arrived and they had to increase her oxygen to 5 L. They also noted that the patient was hyperglycemic, but did not say specifically what her blood sugar was. They are were also concerned about her blood pressure. Patient is a poor historian and states that she feels okay, however her daughter states that she has trouble explaining how she feels and tends to play everything off like its not a big deal. Blood work completed in ED reveals a WBC of 22.4, hemoglobin 9.5 and platelet count of 157, sodium 135, potassium 5.3, BUNs/creatinine of 60/1.23 and blood glucose of 531, BNP of 3100 COVID, influenza and RSV testing negative Chest x-ray reveals cardiomegaly with trace pleural effusion and interval development of patchy confluent bilateral airspace disease Review of Systems REVIEW OF SYSTEMS: CONSTITUTIONAL: No fever, no malaise, no fatigue. HEENT: No recent visual problems or hearing problems. Denied any sore throat. CARDIOVASCULAR: No chest pain, orthopnea, PND, no palpitations, no syncope. PULMONARY: No shortness of breath, no cough, no hemoptysis. GASTROINTESTINAL: No diarrhea, no nausea, no vomiting, no abdominal pain. NEUROLOGICAL: No headaches, no weakness, no numbness. HEMATOLOGICAL: Denies any bleeding or petechiae. GENITOURINARY: Denies any burning micturition, frequency, or urgency. MUSCULOSKELETAL/RHEUMATOLOGICAL: Denies any joint pain, swelling, or any muscle pain. ENDOCRINE: Denies any polyuria or polydipsia. The rest of the 14-point review of systems is negative. Past Medical History Past Medical History: Heart Failure, Diabetes Mellitus, Hypertension, Pneumonia Additional Past Medical History / Comment(s): new CHF 09/2023, "kidney damage" History of Any Multi-Drug Resistant Organisms: MRSA Date of last positivie culture/infection: 07/29/23 MDRO Source:: sepsis Past Surgical History: Hysterectomy Additional Past Surgical History / Comment(s): R hip, cataract sx Past Anesthesia/Blood Transfusion Reactions: No Reported Reaction Past Psychological History: No Psychological Hx Reported Smoking Status: Unknown if ever smoked Past Alcohol Use History: None Reported Past Drug Use History: None Reported Medications and Allergies Home Medications Medication Instructions Recorded Confirmed Type Ergocalciferol (Vitamin D2) 1,250 mcg PO APPIAH 10/08/23 11/26/23 History [Drisdol (50,000 Iu)] carvediloL [Coreg] 25 mg PO BID 10/08/23 11/26/23 History hydrALAZINE HCL [Apresoline] 50 mg PO TID@0800,1300,1800 10/08/23 11/26/23 History Potassium Chloride ER [K-Dur 20] 40 meq PO BID tab 10/19/23 11/26/23 Rx predniSONE [Deltasone] 20 mg PO DAILY #2 tab 10/19/23 11/26/23 Rx Albuterol Sulfate [Albuterol 2 puff INHALATION RT-Q6H 11/02/23 11/26/23 History Sulfate Hfa] Aspirin [Vazalore] 81 mg PO DAILY 11/02/23 11/26/23 History Atorvastatin [Lipitor] 20 mg PO DAILY 11/02/23 11/26/23 History NIFEdipine XL [Procardia XL] 60 mg PO DAILY 11/02/23 11/26/23 History Omeprazole 20 mg PO DAILY 11/02/23 11/26/23 History rOPINIRole HCL [Requip] 4 mg PO BID 11/02/23 11/26/23 History Collagenase [Santyl Ointment] 1 applic TOPICAL DAILY each 11/06/23 11/26/23 Rx DULoxetine HCL [Cymbalta] 60 mg PO BID 11/26/23 11/26/23 History Furosemide [Lasix] 40 mg PO BID@0800,1600 11/26/23 11/26/23 History Insulin Glargine-Yfgn 30 units SQ DAILY 11/26/23 11/26/23 History Insulin Lispro [Insulin Lispro See Protocol SQ AC-TID 11/26/23 11/26/23 History Kwikpen U-100] Ipratropium-Albuterol Nebulize 3 ml INHALATION DIRECTED 11/26/23 11/26/23 History [Duoneb 0.5 mg-3 mg/3 ml Soln] Allergies Allergy/AdvReac Type Severity Reaction Status Date / Time No Known Allergies Allergy Verified 11/26/23 14:40 Physical Exam Vitals: Vital Signs Temp Pulse Pulse Resp BP BP Pulse Ox 11/27/23 09:05 93 L 11/27/23 07:30 98.5 F 64 18 128/67 93 L 11/27/23 01:16 60 111/64 96 11/26/23 23:30 18 11/26/23 22:45 97.4 F L 66 13 119/66 96 11/26/23 21:00 61 18 109/60 97 11/26/23 20:03 62 18 114/63 97 11/26/23 18:00 97 11/26/23 17:50 107/67 11/26/23 12:46 97.8 F 61 18 104/57 95 Intake and Output 11/26/23 11/27/23 11/27/23 22:59 06:59 14:59 Other: Voiding Method Diaper # Voids 4 Weight 66.224 kg 64 kg Head exam: Present: atraumatic, normocephalic, normal inspection Eye exam: Present: normal appearance, PERRL, EOMI. Absent: scleral icterus, conjunctival injection, periorbital swelling ENT exam: Present: normal exam, mucous membranes moist Neck exam: Present: normal inspection. Absent: tenderness, meningismus, lymphadenopathy Respiratory exam: Present: normal lung sounds bilaterally. Absent: respiratory distress, wheezes, rales, rhonchi, stridor Cardiovascular Exam: Present: regular rate, normal rhythm, normal heart sounds. Absent: systolic murmur, diastolic murmur, rubs, gallop, clicks GI/Abdominal exam: Present: soft, normal bowel sounds. Absent: distended, tenderness, guarding, rebound, rigid Extremities exam: Present: normal inspection, full ROM, normal capillary refill. Absent: tenderness, pedal edema, joint swelling, calf tenderness Back exam: Present: normal inspection Neurological exam: Present: alert, oriented X3, CN II-XII intact Psychiatric exam: Present: normal affect, normal mood Skin exam: Present: warm, dry, intact, normal color. Absent: rash Results CBC & Chem 7: 11/27/23 04:36 11/27/23 04:36 Labs: Abnormal Lab Results - Last 24 Hours (Table) 0211/26/23 11/26/23 Range/Units 12:53 12:53 12:53 WBC 22.4 H (3.8-10.6) k/uL RBC 3.04 L (3.80-5.40) m/uL Hgb 9.5 L (11.4-16.0) gm/dL Hct 30.4 L (34.0-46.0) % MCHC (32.0-37.0) g/dL RDW 15.7 H (11.5-15.5) % Immature Gran # (0.00-0.04) X 10*3/uL Neutrophils # 21.6 H (1.3-7.7) k/uL Lymphocytes # 0.3 L (1.0-4.8) k/uL Eosinophils # (0.04-0.35) X 10*3/uL Sodium 135 L (137-145) mmol/L Potassium 5.3 H (3.5-5.1) mmol/L Anion Gap (4.00-12.00) mmol/L BUN 60 H (7-17) mg/dL Creatinine 1.23 H (0.52-1.04) mg/dL Est GFR (CKD-EPI) (>=60) BUN/Creatinine Ratio (12.00-20.00) Ratio Glucose 531 H* (74-99) mg/dL POC Glucose (mg/dL) (70-110) mg/dL Alkaline Phosphatase 189 H (38-126) U/L Total Protein 5.7 L (6.3-8.2) g/dL Albumin 3.2 L (3.5-5.0) g/dL Procalcitonin (0.02-0.09) ng/mL Urine Appearance Cloudy H (Clear) Urine Glucose (UA) 3+ H (Negative) Ur Leukocyte Esterase Small H (Negative) Urine WBC 10 H (0-5) /hpf Urine Bacteria Many H (None) /hpf Hyaline Casts 23 H (0-2) /lpf Urine Mucus Rare H (None) /hpf 11/26/23 11/26/23 11/26/23 Range/Units 12:53 13:05 19:21 WBC (3.8-10.6) k/uL RBC (3.80-5.40) m/uL Hgb (11.4-16.0) gm/dL Hct (34.0-46.0) % MCHC (32.0-37.0) g/dL RDW (11.5-15.5) % Immature Gran # (0.00-0.04) X 10*3/uL Neutrophils # (1.3-7.7) k/uL Lymphocytes # (1.0-4.8) k/uL Eosinophils # (0.04-0.35) X 10*3/uL Sodium (137-145) mmol/L Potassium (3.5-5.1) mmol/L Anion Gap (4.00-12.00) mmol/L BUN (7-17) mg/dL Creatinine (0.52-1.04) mg/dL Est GFR (CKD-EPI) (>=60) BUN/Creatinine Ratio (12.00-20.00) Ratio Glucose (74-99) mg/dL POC Glucose (mg/dL) 532 H 465 H (70-110) mg/dL Alkaline Phosphatase (38-126) U/L Total Protein (6.3-8.2) g/dL Albumin (3.5-5.0) g/dL Procalcitonin 0.35 H (0.02-0.09) ng/mL Urine Appearance (Clear) Urine Glucose (UA) (Negative) Ur Leukocyte Esterase (Negative) Urine WBC (0-5) /hpf Urine Bacteria (None) /hpf Hyaline Casts (0-2) /lpf Urine Mucus (None) /hpf 11/26/23 11/27/23 11/27/23 Range/Units 22:59 04:36 04:36 WBC 19.10 H (3.8-10.6) k/uL RBC 3.02 L (3.80-5.40) m/uL Hgb 9.1 L (11.4-16.0) gm/dL Hct 28.7 L (34.0-46.0) % MCHC 31.7 L (32.0-37.0) g/dL RDW 16.1 H (11.5-15.5) % Immature Gran # 0.14 H (0.00-0.04) X 10*3/uL Neutrophils # 17.62 H (1.3-7.7) k/uL Lymphocytes # 0.58 L (1.0-4.8) k/uL Eosinophils # 0.02 L (0.04-0.35) X 10*3/uL Sodium (137-145) mmol/L Potassium (3.5-5.1) mmol/L Anion Gap 12.60 H (4.00-12.00) mmol/L BUN 52.6 H (7-17) mg/dL Creatinine (0.52-1.04) mg/dL Est GFR (CKD-EPI) 33 L (>=60) BUN/Creatinine Ratio 35.07 H (12.00-20.00) Ratio Glucose (74-99) mg/dL POC Glucose (mg/dL) 422 H (70-110) mg/dL Alkaline Phosphatase (38-126) U/L Total Protein (6.3-8.2) g/dL Albumin (3.5-5.0) g/dL Procalcitonin (0.02-0.09) ng/mL Urine Appearance (Clear) Urine Glucose (UA) (Negative) Ur Leukocyte Esterase (Negative) Urine WBC (0-5) /hpf Urine Bacteria (None) /hpf Hyaline Casts (0-2) /lpf Urine Mucus (None) /hpf 11/27/23 11/27/23 Range/Units 05:36 06:07 WBC (3.8-10.6) k/uL RBC (3.80-5.40) m/uL Hgb (11.4-16.0) gm/dL Hct (34.0-46.0) % MCHC (32.0-37.0) g/dL RDW (11.5-15.5) % Immature Gran # (0.00-0.04) X 10*3/uL Neutrophils # (1.3-7.7) k/uL Lymphocytes # (1.0-4.8) k/uL Eosinophils # (0.04-0.35) X 10*3/uL Sodium (137-145) mmol/L Potassium (3.5-5.1) mmol/L Anion Gap (4.00-12.00) mmol/L BUN (7-17) mg/dL Creatinine (0.52-1.04) mg/dL Est GFR (CKD-EPI) (>=60) BUN/Creatinine Ratio (12.00-20.00) Ratio Glucose (74-99) mg/dL POC Glucose (mg/dL) 67 L 118 H (70-110) mg/dL Alkaline Phosphatase (38-126) U/L Total Protein (6.3-8.2) g/dL Albumin (3.5-5.0) g/dL Procalcitonin (0.02-0.09) ng/mL Urine Appearance (Clear) Urine Glucose (UA) (Negative) Ur Leukocyte Esterase (Negative) Urine WBC (0-5) /hpf Urine Bacteria (None) /hpf Hyaline Casts (0-2) /lpf Urine Mucus (None) /hpf Thrombosis Risk Factor Assmnt - Choose All That Apply Any of the Below Risk Factors Present?: Yes Each Factor Represents 1 point: Abnormal pulmonary function (COPD), Heart failure (<1month) Other Risk Factors: No Each Risk Factor Represents 3 Points: Age 75 years or older Other congenital or acquired thrombophilia - If yes, enter type in comment: No Thrombosis Risk Factor Assessment Total Risk Factor Score: 5 Thrombosis Risk Factor Assessment Level: High Risk Assessment and Plan Assessment: 1. Acute on chronic hypoxic respiratory failure; related to pneumonia and CHF -- Patient uses O2 at 2 L per nasal cannula; currently declining O2 at 4 L 2. Multifocal pneumonia -Chest x-ray reveals diffuse patchy fluffy infiltrates -- Patient has been placed on IV antibiotics in form of ceftriaxone 2 g IV daily along with azithromycin 500 mg p.o. daily -- Bronchodilator nebulizer treatments -- Will monitor CBC, CRP and procalcitonin 3. Chronic diastolic CHF -History of valvular heart disease with moderate to severe mitral regurgitation and severe tricuspid regurgitation and pulmonary hypertension; LVEF of 55 to 60% -- Patient has been placed on Lasix 40 mg IV every 12 hours; we will monitor strict MARLENA's, daily weights, renal function electrolytes -- Consult cardiology 4. Acute renal injury; patient has been placed on IV Lasix for acute exacerbation CHF; will monitor renal function electrolytes; avoid nephrotoxins and hypotension 5. UTI; currently on ceftriaxone 2 g IV daily 6. Hypertension; Coreg 25 mg twice daily, hydralazine 50 mg 3 times daily and Procardia XL 60 mg daily 7. Hyperlipidemia; Lipitor 20 mg daily 8. Diabetes mellitus/hyperglycemia without acidosis; we will resume home dose of Lantus 30 units subcu daily; monitor Accu-Cheks ACHS with insulin sliding scale DVT prophylaxis; SCDs CODE STATUS; full code
[2023-11-27 17:59] LABS: Glucose,Whole Blood 70 mg/dL (70-110)
[2023-11-27] MEDS: hydrALAZINE HCL 50 MG TAB PO SCH (18:01)
[2023-11-27] MEDS ORDERED: ALBUTEROL NEBULIZED 2.5 MG/3 ML INHALATION SCH (20:00)
[2023-11-27] MEDS: POTASSIUM CHLORIDE ER 20 MEQ TAB.ER PO SCH (20:20)
[2023-11-27] MEDS: carvediloL 12.5 MG TAB PO SCH (20:21)
[2023-11-27 20:22] LABS: Glucose,Whole Blood 88 mg/dL (70-110)
[2023-11-27] MEDS: IPRATROPIUM-ALBUTEROL 3 ML NEB INHALATION SCH (21:33)
[2023-11-27] MEDS ORDERED: IPRATROPIUM-ALBUTEROL 3 ML NEB INHALATION PRN (21:47)
[2023-11-28 00:26] LABS: Glucose,Whole Blood 86 mg/dL (70-110)
[2023-11-28 06:34] LABS: Glucose,Whole Blood 180 mg/dL (70-110)
[2023-11-28] MEDS: PANTOPRAZOLE 40 MG TABLET PO SCH (06:48)
[2023-11-28] MEDS ORDERED: INSULIN DETEMIR (LEVEMIR) 100 UNIT/ML SYR SQ SCH (09:00)
[2023-11-28] MEDS: ASPIRIN 81 MG PO SCH (09:18)
[2023-11-28] MEDS: ATORVASTATIN 20 MG TAB PO SCH (09:18)
[2023-11-28 09:46] LABS: HCT 33.1 % (37.2-46.3); HGB 10.5 g/dL (12.0-15.0); MCH 30.6 pg (27.0-32.0); MCHC 31.7 g/dL (32.0-37.0); MCV 96.5 FL (80.0-97.0); Mean Platelet Volume 12.1 FL (9.5-12.2); NRBC Per 100 WBC 0 X 10*3/uL (0.00-0.01); Platelet Count 179 X 10*3/uL (140-440); RBC 3.43 X 10*6/uL (4.10-5.20); RDW 15.7 % (11.5-14.5); WBC 16.85 X 10*3/uL (4.50-10.00)
[2023-11-28 09:47] LABS: Basophils # (A) 0.04 X 10*3/uL (0.00-0.10); Basophils % (A) 0.2 %; Eosinophils # (A) 0.06 X 10*3/uL (0.04-0.35); Eosinophils % (A) 0.4 %; Lymphocytes # (A) 0.41 X 10*3/uL (0.90-5.00); Lymphocytes % (A) 2.4 %; Monocytes # (A) 0.62 X 10*3/uL (0.20-1.00); Monocytes % (A) 3.7 %; Neutrophils # (A) 15.63 X 10*3/uL (1.80-7.70); Neutrophils % (A) 92.8 %
[2023-11-28] MEDS: IPRATROPIUM-ALBUTEROL 3 ML NEB INHALATION SCH (09:48)
[2023-11-28 10:43] LABS: BUN/Creat Ratio 34.77 Ratio (12.00-20.00); Blood Urea Nitrogen 45.2 mg/dL (9.0-27.0); Calcium 8.9 mg/dL (8.7-10.3); Carbon Dioxide 31.3 mmol/L (21.6-31.8); Chloride 98 mmol/L (96-109); Glucose 133 mg/dL (70-110); Potassium 2.9 mmol/L (3.5-5.5); Sodium 142 mmol/L (135-145)
[2023-11-28 11:22] LABS: Glucose,Whole Blood 288 mg/dL (70-110)
[2023-11-28] MEDS: POTASSIUM CHLORIDE 20 MEQ in WATER FOR INJECTION 1 100ML.BAG IVPB STA (12:40)
--- NOTE | 2023-11-28 12:46 | P.PN ---
Subjective Progress Note Date: 11/28/23 I am seeing this patient in consultation today 11/27/2023 after she was sent from her local ECF after being noted to be short of breath and hypoxic. Patient is a 88-year-old white female with past medical history significant for congestive heart failure, chronic hypoxemic respiratory failure on 2 L O2 at baseline, diabetes mellitus, hypertension, hyperlipidemia, and recent right- sided hip fracture with prolonged hospitalization at outside facility. She resides at [facility]. She had a recent hospitalization at our facility in September of this year for congestive heart failure. Echocardiogram done 10/09/2023 showed a preserved left ventricular ejection fraction, moderate mitral regurgitation, moderate to severe tricuspid regurgitation, and severe pulmonary hypertension. There was a repeat hospital admission earlier in October of this year for similar symptoms. She was incidentally noted to be influenza A positive. She was discharged back to her ECF 11/06/2023. She has been taking Lasix 40 mg twice daily. She has completed her course of Tamiflu. Patient returns after progressively worsening dyspnea while at [facility]. She was noted to be hypoxic on her chronic 2 L/min nasal cannula. She was brought in by EMS yesterday afternoon. Patient is currently resting in bed, on 4 L/min nasal cannula, in no acute distress. She does have worsening lower extremity edema. Denies any chest pain, heart palpitations, lightheadedness, orthopnea, PND. Denies any fevers, chills, cough, hemoptysis. Chest x-ray done on arrival appears to show diffuse pulmonary edema and mild cardiomegaly. Superimposed multifocal pneumonia could be within the differential. CBC does show leukocytosis with a WBC count of 22.4, hemoglobin 9.5, hematocrit 30.4, platelets 157. BMP on arrival: Sodium 135, potassium 5.3, chloride 106, serum bicarb 23, BUN 60, creatinine 1.23, glucose 531. Lactic 1.4. Troponin less than 0.012. NT proBNP 3100. Procalcitonin 0.35. Urinalysis shows small leukocyte esterase and pyuria. Negative for influenza, RSV, COVID. Patient is empirically covered on azithromycin and Rocephin. Vital signs are stable. On today's evaluation of 11/28/2023, the patient is being seen for a follow-up. Slightly improved compared to yesterday and the patient is currently on 40 Suboxone by nasal cannula with a pulse ox of 97%. Responding to the diuretics and the patient is currently in negative fluid balance. The white cell count is 16.8 with a hemoglobin of 10.5 and a platelet count of 179. The rest of the blood work and electrolytes are stable. Creatinine is up to 1.3 with a BUN of 45 and a sodium levels at 142. Potassium level needs to be replaced at 2.9. The patient remains on IV Rocephin. The patient is also on IV Lasix 40 mg every 12 hours. There is a single blood culture that showed gram-positive cocci in clusters, likely contaminant. This is 1 out of 2 bottles. Urine culture is showing gram-negative bacillus. Overall condition is stable. Hemodynamically stable. No hypotension. No fever. No significant tachycardia. Objective - Vital Signs Vital signs: Vital Signs Temp 98.0 F 11/28/23 08:15 Pulse 64 11/28/23 09:58 Resp 18 11/28/23 08:15 BP 138/68 11/28/23 08:15 Pulse Ox 97 11/28/23 09:50 FiO2 Intake & Output 11/27/23 11/28/23 11/28/23 18:59 06:59 18:59 Intake Total 1400 Output Total 1300 400 Balance 100 -400 Weight 64 kg 64 kg Intake: Oral 1400 Output: Urine 1300 400 Other: Voiding Method Diaper External Catheter Incontinent # Voids 3 # Bowel Movements 1 - Exam GENERAL EXAM: Alert, 88-year-old white female, hard of hearing, comfortable in no apparent distress. HEAD: Normocephalic and atraumatic EYES: Normal reaction of pupils, equal size. NOSE: Clear with pink turbinates. THROAT: No erythema or exudates. NECK: No masses, no JVD. CHEST: No chest wall deformity. LUNGS: Equal air entry with bibasilar crackles. No wheeze, rhonchi or focal dullness. On 4 L/min nasal cannula. No conversational dyspnea or accessory muscle use while at rest.. CVS: S1 and S2 normal with soft grade 1/6 systolic murmur, regular rhythm. No other extra heart sounds ABDOMEN: No hepatosplenomegaly, active bowel sounds, no guarding or rigidity. SPINE: No scoliosis or deformity SKIN: No rashes CENTRAL NERVOUS SYSTEM: No focal deficits, tone is normal in all 4 extremities. EXTREMITIES: There is 4+ bilateral lower extremity pitting edema. Clubbing, or cyanosis. Peripheral pulses are intact. - Labs CBC & Chem 7: 11/28/23 05:37 11/28/23 05:37 Labs: Abnormal Lab Results - Last 24 Hours (Table) 11/27/23 11/28/23 11/28/23 Range/Units 11:18 05:37 05:37 WBC 16.85 H (4.50-10.00) X 10*3/uL RBC 3.43 L (4.10-5.20) X 10*6/uL Hgb 10.5 L (12.0-15.0) g/dL Hct 33.1 L (37.2-46.3) % MCHC 31.7 L (32.0-37.0) g/dL RDW 15.7 H (11.5-14.5) % Immature Gran # 0.09 H (0.00-0.04) X 10*3/uL Neutrophils # 15.63 H (1.80-7.70) X 10*3/uL Lymphocytes # 0.41 L (0.90-5.00) X 10*3/uL Potassium (3.5-5.5) mmol/L Anion Gap (4.00-12.00) mmol/L BUN (9.0-27.0) mg/dL Est GFR (CKD-EPI) (>=60) BUN/Creatinine Ratio (12.00-20.00) Ratio Glucose (70-110) mg/dL POC Glucose (mg/dL) 56 L (70-110) mg/dL Procalcitonin 0.26 H (0.02-0.09) ng/mL 11/28/23 11/28/23 Range/Units 05:37 06:32 WBC (4.50-10.00) X 10*3/uL RBC (4.10-5.20) X 10*6/uL Hgb (12.0-15.0) g/dL Hct (37.2-46.3) % MCHC (32.0-37.0) g/dL RDW (11.5-14.5) % Immature Gran # (0.00-0.04) X 10*3/uL Neutrophils # (1.80-7.70) X 10*3/uL Lymphocytes # (0.90-5.00) X 10*3/uL Potassium 2.9 L (3.5-5.5) mmol/L Anion Gap 12.70 H (4.00-12.00) mmol/L BUN 45.2 H (9.0-27.0) mg/dL Est GFR (CKD-EPI) 40 L (>=60) BUN/Creatinine Ratio 34.77 H (12.00-20.00) Ratio Glucose 133 H (70-110) mg/dL POC Glucose (mg/dL) 180 H (70-110) mg/dL Procalcitonin (0.02-0.09) ng/mL Microbiology - Last 24 Hours (Table) 11/26/23 17:00 Blood Culture - Preliminary Blood 11/26/23 17:15 Blood Culture - Preliminary Blood Assessment and Plan Assessment: Acute on chronic hypoxemic respiratory failure, likely secondary to exacerbation of diastolic congestive heart failure, and superimposed pneumonia is felt to be less likely. Chest x-ray shows diffuse patchy fluffy infiltrates and mild cardiomegaly concerning for pulmonary edema and/or multifocal pneumonia is within the differential. NT proBNP was elevated at 3100. The patient re sponding nicely to diuretics and patient is currently on IV Lasix. Chronic diastolic heart failure and valvular heart disease with moderate to severe mitral regurgitation and severe tricuspid regurgitation with secondary pulmonary hypertension. Left ventricular ejection fraction was estimated at 55 to 60% on most recent echocardiogram. Severe mitral regurgitation Chronic hypoxemic respiratory failure, secondary to above Leukocytosis, improving Gram-negative urine tract infection Gram-positive cocci in the blood cultures 1 out of 2 bottles, likely contaminant Acute kidney injury, creatinine is stable and improved compared to yesterday Benign essential hypertension History of hyperlipidemia Diabetes mellitus type 2 History of fall with right hip fracture and recent complicated hospital stay at outside facility ECF resident Plan: Patient is on oxygen at 4 L/min nasal cannula. No clear indication for pneumonia. Will monitor the blood cultures, likely contaminant Continue IV Rocephin The white cell count is elevated and this needs to be monitored. Awaiting urine culture results repeat chest x-ray in a.m.
--- NOTE | 2023-11-28 15:00 | P.PN ---
Subjective Progress Note Date: 11/28/23 Principal diagnosis: Heart failure The patient is a pleasant 88-year-old female patient with a past medical history significant for heart failure with preserved ejection fraction and valvular heart disease with mitral regurgitation as well as multiple comorbid conditions who was admitted to the hospital with acute hypoxic respiratory failure felt to be related to pneumonia and a component of heart failure. She was started on Lasix IV. November 28, 2023 She was seen and evaluated this morning. She is feeling slightly better in terms of the shortness of breath but she continues to be on oxygen. No pain in the chest. Blood work continues to be stable. From a cardiovascular standpoint of view, we will continue the current medical regimen and follow-up with her. The examination showed significant systolic murmur at the apical area with clear breathing sounds bilaterally and mild bilateral lower extremity edema Assessment Heart failure with preserved ejection fraction Severe mitral regurgitation Hypertension Dyslipidemia Multiple comorbid conditions Plan Continue the current medical regimen Continue monitor the kidney function and electrolytes Continue IV Lasix for additional 24 hours Follow-up with the patient Objective - Vital Signs Vital signs: Vital Signs Temp 98.0 F 11/28/23 08:15 Pulse 72 11/28/23 14:13 Resp 16 11/28/23 14:13 BP 138/68 11/28/23 08:15 Pulse Ox 97 11/28/23 09:50 FiO2 Intake & Output 11/27/23 11/28/23 11/28/23 18:59 06:59 18:59 Intake Total 1400 Output Total 1300 400 Balance 100 -400 Weight 64 kg 64 kg Intake: Oral 1400 Output: Urine 1300 400 Other: Voiding Method Diaper External Catheter External Catheter Incontinent # Voids 3 # Bowel Movements 1 - Labs CBC & Chem 7: 11/28/23 05:37 11/28/23 05:37 Labs: Abnormal Lab Results - Last 24 Hours (Table) 11/28/23 11/28/23 11/28/23 Range/Units 05:37 05:37 05:37 WBC 16.85 H (4.50-10.00) X 10*3/uL RBC 3.43 L (4.10-5.20) X 10*6/uL Hgb 10.5 L (12.0-15.0) g/dL Hct 33.1 L (37.2-46.3) % MCHC 31.7 L (32.0-37.0) g/dL RDW 15.7 H (11.5-14.5) % Immature Gran # 0.09 H (0.00-0.04) X 10*3/uL Neutrophils # 15.63 H (1.80-7.70) X 10*3/uL Lymphocytes # 0.41 L (0.90-5.00) X 10*3/uL Potassium 2.9 L (3.5-5.5) mmol/L Anion Gap 12.70 H (4.00-12.00) mmol/L BUN 45.2 H (9.0-27.0) mg/dL Est GFR (CKD-EPI) 40 L (>=60) BUN/Creatinine Ratio 34.77 H (12.00-20.00) Ratio Glucose 133 H (70-110) mg/dL POC Glucose (mg/dL) (70-110) mg/dL Procalcitonin 0.26 H (0.02-0.09) ng/mL 11/28/23 11/28/23 Range/Units 06:32 11:21 WBC (4.50-10.00) X 10*3/uL RBC (4.10-5.20) X 10*6/uL Hgb (12.0-15.0) g/dL Hct (37.2-46.3) % MCHC (32.0-37.0) g/dL RDW (11.5-14.5) % Immature Gran # (0.00-0.04) X 10*3/uL Neutrophils # (1.80-7.70) X 10*3/uL Lymphocytes # (0.90-5.00) X 10*3/uL Potassium (3.5-5.5) mmol/L Anion Gap (4.00-12.00) mmol/L BUN (9.0-27.0) mg/dL Est GFR (CKD-EPI) (>=60) BUN/Creatinine Ratio (12.00-20.00) Ratio Glucose (70-110) mg/dL POC Glucose (mg/dL) 180 H 288 H (70-110) mg/dL Procalcitonin (0.02-0.09) ng/mL Microbiology - Last 24 Hours (Table) 11/26/23 17:00 Blood Culture Gram Stain - Preliminary Blood Blood Culture - Preliminary 11/26/23 15:37 Urine Culture - Preliminary Urine,Clean Catch Gram Neg Bacilli 11/26/23 17:15 Blood Culture - Preliminary Blood
--- NOTE | 2023-11-28 16:33 | P.PN ---
Subjective Progress Note Date: 11/28/23 88-year-old female who presents to the emergency department for shortness of breath and hyperglycemia. Patient resides at [facility]. EMS received a call that the patient was short of breath. She wears 2 L of oxygen at baseline, however she was at 86% when they arrived and they had to increase her oxygen to 5 L. They also noted that the patient was hyperglycemic, but did not say specifically what her blood sugar was. They are were also concerned about her blood pressure. Patient is a poor historian and states that she feels okay, however her daughter states that she has trouble explaining how she feels and tends to play everything off like its not a big deal. Blood work completed in ED reveals a WBC of 22.4, hemoglobin 9.5 and platelet count of 157, sodium 135, potassium 5.3, BUNs/creatinine of 60/1.23 and blood glucose of 531, BNP of 3100 COVID, influenza and RSV testing negative Chest x-ray reveals cardiomegaly with trace pleural effusion and interval development of patchy confluent bilateral airspace disease Objective - Vital Signs Vital signs: Vital Signs Temp 98.0 F 11/28/23 08:15 Pulse 64 11/28/23 09:58 Resp 18 11/28/23 08:15 BP 138/68 11/28/23 08:15 Pulse Ox 97 11/28/23 09:50 FiO2 Intake & Output 11/27/23 11/28/23 11/28/23 18:59 06:59 18:59 Intake Total 1400 Output Total 1300 400 Balance 100 -400 Weight 64 kg 64 kg Intake: Oral 1400 Output: Urine 1300 400 Other: Voiding Method Diaper External Catheter Incontinent # Voids 3 # Bowel Movements 1 - Exam Head exam: Present: atraumatic, normocephalic, normal inspection Eye exam: Present: normal appearance, PERRL, EOMI. Absent: scleral icterus, conjunctival injection, periorbital swelling ENT exam: Present: normal exam, mucous membranes moist Neck exam: Present: normal inspection. Absent: tenderness, meningismus, lym phadenopathy Respiratory exam: Present: normal lung sounds bilaterally. Absent: respiratory distress, wheezes, rales, rhonchi, stridor Cardiovascular Exam: Present: regular rate, normal rhythm, normal heart sounds. Absent: systolic murmur, diastolic murmur, rubs, gallop, clicks GI/Abdominal exam: Present: soft, normal bowel sounds. Absent: distended, tenderness, guarding, rebound, rigid Extremities exam: Present: normal inspection, full ROM, normal capillary refill. Absent: tenderness, pedal edema, joint swelling, calf tenderness Back exam: Present: normal inspection Neurological exam: Present: alert, oriented X3, CN II-XII intact Psychiatric exam: Present: normal affect, normal mood Skin exam: Present: warm, dry, intact, normal color. Absent: rash - Labs CBC & Chem 7: 11/28/23 05:37 11/28/23 05:37 Labs: Abnormal Lab Results - Last 24 Hours (Table) 11/27/23 11/28/23 11/28/23 Range/Units 11:18 05:37 05:37 WBC 16.85 H (4.50-10.00) X 10*3/uL RBC 3.43 L (4.10-5.20) X 10*6/uL Hgb 10.5 L (12.0-15.0) g/dL Hct 33.1 L (37.2-46.3) % MCHC 31.7 L (32.0-37.0) g/dL RDW 15.7 H (11.5-14.5) % Immature Gran # 0.09 H (0.00-0.04) X 10*3/uL Neutrophils # 15.63 H (1.80-7.70) X 10*3/uL Lymphocytes # 0.41 L (0.90-5.00) X 10*3/uL Potassium (3.5-5.5) mmol/L Anion Gap (4.00-12.00) mmol/L BUN (9.0-27.0) mg/dL Est GFR (CKD-EPI) (>=60) BUN/Creatinine Ratio (12.00-20.00) Ratio Glucose (70-110) mg/dL POC Glucose (mg/dL) 56 L (70-110) mg/dL Procalcitonin 0.26 H (0.02-0.09) ng/mL 11/28/23 11/28/23 Range/Units 05:37 06:32 WBC (4.50-10.00) X 10*3/uL RBC (4.10-5.20) X 10*6/uL Hgb (12.0-15.0) g/dL Hct (37.2-46.3) % MCHC (32.0-37.0) g/dL RDW (11.5-14.5) % Immature Gran # (0.00-0.04) X 10*3/uL Neutrophils # (1.80-7.70) X 10*3/uL Lymphocytes # (0.90-5.00) X 10*3/uL Potassium 2.9 L (3.5-5.5) mmol/L Anion Gap 12.70 H (4.00-12.00) mmol/L BUN 45.2 H (9.0-27.0) mg/dL Est GFR (CKD-EPI) 40 L (>=60) BUN/Creatinine Ratio 34.77 H (12.00-20.00) Ratio Glucose 133 H (70-110) mg/dL POC Glucose (mg/dL) 180 H (70-110) mg/dL Procalcitonin (0.02-0.09) ng/mL Microbiology - Last 24 Hours (Table) 11/26/23 17:00 Blood Culture - Preliminary Blood 11/26/23 17:15 Blood Culture - Preliminary Blood Assessment and Plan Assessment: 1. Acute on chronic hypoxic respiratory failure; related to pneumonia and CHF -- Patient uses O2 at 2 L per nasal cannula; currently declining O2 at 4 L 2. Multifocal pneumonia -Chest x-ray reveals diffuse patchy fluffy infiltrates -- Patient has been placed on IV antibiotics in form of ceftriaxone 2 g IV daily along with azithromycin 500 mg p.o. daily -- Bronchodilator nebulizer treatments -- Will monitor CBC, CRP and procalcitonin 3. Chronic diastolic CHF -History of valvular heart disease with moderate to severe mitral regurgitation and severe tricuspid regurgitation and pulmonary hypertension; LVEF of 55 to 60% -- Patient has been placed on Lasix 40 mg IV every 12 hours; we will monitor strict MARLENA's, daily weights, renal function electrolytes -- Consult cardiology 4. Acute renal injury; patient has been placed on IV Lasix for acute exacerbation CHF; will monitor renal function electrolytes; avoid nephrotoxins and hypotension 5. UTI; currently on ceftriaxone 2 g IV daily 6. Hypertension; Coreg 25 mg twice daily, hydralazine 50 mg 3 times daily and Procardia XL 60 mg daily 7. Hyperlipidemia; Lipitor 20 mg daily 8. Diabetes mellitus/hyperglycemia without acidosis; we will resume home dose of Lantus 30 units subcu daily; monitor Accu-Cheks ACHS with insulin sliding scale DVT prophylaxis; SCDs CODE STATUS; full code
[2023-11-28 17:02] LABS: Glucose,Whole Blood 428 mg/dL (70-110)
[2023-11-28 17:36] LABS: Glucose,Whole Blood 491 mg/dL (70-110)
[2023-11-28] MEDS: INSULIN ASPART (NovoLOG) 100 UNIT/ML VIAL SQ ONE ×2 (18:18→23:08)
[2023-11-28 22:28] LABS: Glucose,Whole Blood 454 mg/dL (70-110)
[2023-11-29 06:44] LABS: Glucose,Whole Blood 64 mg/dL (70-110)
[2023-11-29 07:08] LABS: Glucose,Whole Blood 111 mg/dL (70-110)
[2023-11-29] MEDS: INSULIN ASPART (NovoLOG) 100 UNIT/ML VIAL SQ SCH (07:27)
[2023-11-29 08:01] LABS: African American GFR (CKD) 47 (>60 ml/min/1.73 sqM); Anion Gap 5 mmol/L; Blood Urea Nitrogen 60 mg/dL (7-17); Calcium 8.7 mg/dL (8.4-10.2); Carbon Dioxide 34 mmol/L (22-30); Chloride 101 mmol/L (98-107); Glucose 89 mg/dL (74-99); Non-African American GFR(CKD) 41 (>60 ml/min/1.73 sqM); Potassium 3.6 mmol/L (3.5-5.1); Sodium 140 mmol/L (137-145)
[2023-11-29 12:26] LABS: Glucose,Whole Blood 122 mg/dL (70-110)
--- NOTE | 2023-11-29 14:42 | P.PN ---
Subjective Progress Note Date: 11/29/23 Principal diagnosis: Heart failure The patient is a pleasant 88-year-old female patient with a past medical history significant for heart failure with preserved ejection fraction and valvular heart disease with mitral regurgitation as well as multiple comorbid conditions who was admitted to the hospital with acute hypoxic respiratory failure felt to be related to pneumonia and a component of heart failure. She was started on Lasix IV. November 28, 2023 She was seen and evaluated this morning. She is feeling slightly better in terms of the shortness of breath but she continues to be on oxygen. No pain in the chest. Blood work continues to be stable. From a cardiovascular standpoint of view, we will continue the current medical regimen and follow-up with her. The examination showed significant systolic murmur at the apical area with clear breathing sounds bilaterally and mild bilateral lower extremity edema November 29, 2023 The patient was seen this afternoon. She is feeling better. The shortness of breath has improved. She continues to have bilateral lower extremities edema. The blood work from this morning showed stable creatinine with that being said I am going to continue the current dose of Lasix IV and continue monitor the kidney function and electrolytes and follow-up with the patient. The examination is remarkable for systolic murmur at the apical area with clear breathing sounds bilaterally and bilateral lower extremities edema Assessment Heart failure with preserved ejection fraction Severe mitral regurgitation Hypertension Dyslipidemia Multiple comorbid conditions Plan Continue the current medical regimen Continue monitor the kidney function and electrolytes Continue IV Lasix for additional 24 hours Follow-up with the patient Objective - Vital Signs Vital signs: Vital Signs Temp 98.3 F 11/29/23 07:35 Pulse 70 11/29/23 12:44 Resp 18 11/29/23 07:35 BP 127/65 11/29/23 07:35 Pulse Ox 96 11/29/23 09:45 FiO2 Intake & Output 11/28/23 11/29/23 11/29/23 18:59 06:59 18:59 Intake Total 480 Output Total 1500 400 Balance -1500 480 -400 Weight 63 kg Intake: Oral 480 Output: Urine 1500 400 Other: Voiding Method External Catheter Diaper Diaper External Catheter External Catheter # Voids 3 # Bowel Movements 1 2 - Labs CBC & Chem 7: 11/28/23 05:37 11/29/23 07:07 Labs: Abnormal Lab Results - Last 24 Hours (Table) 11/28/23 11/28/23 11/28/23 Range/Units 17:01 17:34 22:25 Carbon Dioxide (22-30) mmol/L BUN (7-17) mg/dL Creatinine (0.52-1.04) mg/dL POC Glucose (mg/dL) 428 H 491 H 454 H (70-110) mg/dL 11/29/23 11/29/23 11/29/23 Range/Units 06:42 07:06 07:07 Carbon Dioxide 34 H (22-30) mmol/L BUN 60 H (7-17) mg/dL Creatinine 1.20 H (0.52-1.04) mg/dL POC Glucose (mg/dL) 64 L 111 H (70-110) mg/dL 11/29/23 Range/Units 12:24 Carbon Dioxide (22-30) mmol/L BUN (7-17) mg/dL Creatinine (0.52-1.04) mg/dL POC Glucose (mg/dL) 122 H (70-110) mg/dL Microbiology - Last 24 Hours (Table) 11/26/23 17:00 Blood Culture Gram Stain - Preliminary Blood Blood Culture - Preliminary Presumptive MRSA 11/26/23 15:37 Urine Culture - Final Urine,Clean Catch Klebsiella pneumoniae 11/26/23 17:15 Blood Culture - Preliminary Blood
[2023-11-29 16:48] LABS: Glucose,Whole Blood 261 mg/dL (70-110)
[2023-11-29] MEDS ORDERED: VANCOMYCIN IV PER PHARMACY 1 EACH MISC MISCELLANE PRN (17:05)
--- NOTE | 2023-11-29 17:05 | P.PN ---
Subjective Progress Note Date: 11/29/23 88-year-old female who presents to the emergency department for shortness of breath and hyperglycemia. Patient resides at [facility]. EMS received a call that the patient was short of breath. She wears 2 L of oxygen at baseline, however she was at 86% when they arrived and they had to increase her oxygen to 5 L. They also noted that the patient was hyperglycemic, but did not say specifically what her blood sugar was. They are were also concerned about her blood pressure. Patient is a poor historian and states that she feels okay, however her daughter states that she has trouble explaining how she feels and tends to play everything off like its not a big deal. Blood work completed in ED reveals a WBC of 22.4, hemoglobin 9.5 and platelet count of 157, sodium 135, potassium 5.3, BUNs/creatinine of 60/1.23 and blood glucose of 531, BNP of 3100 COVID, influenza and RSV testing negative Chest x-ray reveals cardiomegaly with trace pleural effusion and interval development of patchy confluent bilateral airspace disease 11/29/2023 Patient is seen and evaluated in room at bedside; family is present in the room; requesting evaluation by ENT for concerns about episodes of bleeding from ears Vital signs are reviewed Patient is currently on IV antibiotics for multifactorial pneumonia and UTI --Urine culture is growing Klebsiella -- Blood culture 1 out of 2 is positive for MRSA -- We will add IV vancomycin with pharmacy dosing service We will consult ID Objective - Vital Signs Vital signs: Vital Signs Temp 98.3 F 11/29/23 07:35 Pulse 70 11/29/23 12:44 Resp 18 11/29/23 07:35 BP 127/65 11/29/23 07:35 Pulse Ox 96 11/29/23 09:45 FiO2 Intake & Output 11/28/23 11/29/23 11/29/23 18:59 06:59 18:59 Intake Total 480 Output Total 1500 400 Balance -1500 480 -400 Weight 63 kg Intake: Oral 480 Output: Urine 1500 400 Other: Voiding Method External Catheter Diaper Diaper External Catheter External Catheter # Voids 3 # Bowel Movements 1 2 - Exam Head exam: Present: atraumatic, normocephalic, normal inspection Eye exam: Present: normal appearance, PERRL, EOMI. Absent: scleral icterus, conjunctival injection, periorbital swelling ENT exam: Present: normal exam, mucous membranes moist Neck exam: Present: normal inspection. Absent: tenderness, meningismus, lymphadenopathy Respiratory exam: Present: normal lung sounds bilaterally. Absent: respiratory distress, wheezes, rales, rhonchi, stridor Cardiovascular Exam: Present: regular rate, normal rhythm, normal heart sounds. Absent: systolic murmur, diastolic murmur, rubs, gallop, clicks GI/Abdominal exam: Present: soft, normal bowel sounds. Absent: distended, tenderness, guarding, rebound, rigid Extremities exam: Present: normal inspection, full ROM, normal capillary refill. Absent: tenderness, pedal edema, joint swelling, calf tenderness Back exam: Present: normal inspection Neurological exam: Present: alert, oriented X3, CN II-XII intact Psychiatric exam: Present: normal affect, normal mood Skin exam: Present: warm, dry, intact, normal color. Absent: rash - Labs CBC & Chem 7: 11/28/23 05:37 11/29/23 07:07 Labs: Abnormal Lab Results - Last 24 Hours (Table) 11/28/23 11/28/23 11/28/23 Range/Units 17:01 17:34 22:25 Carbon Dioxide (22-30) mmol/L BUN (7-17) mg/dL Creatinine (0.52-1.04) mg/dL POC Glucose (mg/dL) 428 H 491 H 454 H (70-110) mg/dL 11/29/23 11/29/23 11/29/23 Range/Units 06:42 07:06 07:07 Carbon Dioxide 34 H (22-30) mmol/L BUN 60 H (7-17) mg/dL Creatinine 1.20 H (0.52-1.04) mg/dL POC Glucose (mg/dL) 64 L 111 H (70-110) mg/dL 11/29/23 Range/Units 12:24 Carbon Dioxide (22-30) mmol/L BUN (7-17) mg/dL Creatinine (0.52-1.04) mg/dL POC Glucose (mg/dL) 122 H (70-110) mg/dL Microbiology - Last 24 Hours (Table) 11/26/23 17:15 Blood Culture - Preliminary Blood 11/26/23 17:00 Blood Culture Gram Stain - Preliminary Blood Blood Culture - Preliminary 11/26/23 15:37 Urine Culture - Preliminary Urine,Clean Catch Gram Neg Bacilli Assessment and Plan Assessment: 1. Acute on chronic hypoxic respiratory failure; related to pneumonia and CHF -- Patient uses O2 at 2 L per nasal cannula; currently declining O2 at 4 L 2. Multifocal pneumonia -Chest x-ray reveals diffuse patchy fluffy infiltrates -- Patient has been placed on IV antibiotics in form of ceftriaxone 2 g IV daily along with azithromycin 500 mg p.o. daily -- Bronchodilator nebulizer treatments -- Will monitor CBC, CRP and procalcitonin 3. Chronic diastolic CHF -History of valvular heart disease with moderate to severe mitral regurgitation and severe tricuspid regurgitation and pulmonary hypertension; LVEF of 55 to 60% -- Patient has been placed on Lasix 40 mg IV every 12 hours; we will monitor strict MARLENA's, daily weights, renal function electrolytes -- Consult cardiology 4. Acute renal injury; patient has been placed on IV Lasix for acute exacerbation CHF; will monitor renal function electrolytes; avoid nephrotoxins and hypotension 5. UTI; currently on ceftriaxone 2 g IV daily 6. Hypertension; Coreg 25 mg twice daily, hydralazine 50 mg 3 times daily and Procardia XL 60 mg daily 7. Hyperlipidemia; Lipitor 20 mg daily 8. Diabetes mellitus/hyperglycemia without acidosis; we will resume home dose of Lantus 30 units subcu daily; monitor Accu-Cheks ACHS with insulin sliding scale DVT prophylaxis; SCDs CODE STATUS; full code
--- NOTE | 2023-11-29 17:54 | P.PN ---
Subjective Progress Note Date: 11/29/23 I am seeing this patient in consultation today 11/27/2023 after she was sent from her local ECF after being noted to be short of breath and hypoxic. Patient is a 88-year-old white female with past medical history significant for congestive heart failure, chronic hypoxemic respiratory failure on 2 L O2 at baseline, diabetes mellitus, hypertension, hyperlipidemia, and recent right- sided hip fracture with prolonged hospitalization at outside facility. She resides at [facility]. She had a recent hospitalization at our facility in September of this year for congestive heart failure. Echocardiogram done 10/09/2023 showed a preserved left ventricular ejection fraction, moderate mitral regurgitation, moderate to severe tricuspid regurgitation, and severe pulmonary hypertension. There was a repeat hospital admission earlier in October of this year for similar symptoms. She was incidentally noted to be influenza A positive. She was discharged back to her ECF 11/06/2023. She has been taking Lasix 40 mg twice daily. She has completed her course of Tamiflu. Patient returns after progressively worsening dyspnea while at [facility]. She was noted to be hypoxic on her chronic 2 L/min nasal cannula. She was brought in by EMS yesterday afternoon. Patient is currently resting in bed, on 4 L/min nasal cannula, in no acute distress. She does have worsening lower extremity edema. Denies any chest pain, heart palpitations, lightheadedness, orthopnea, PND. Denies any fevers, chills, cough, hemoptysis. Chest x-ray done on arrival appears to show diffuse pulmonary edema and mild cardiomegaly. Superimposed multifocal pneumonia could be within the differential. CBC does show leukocytosis with a WBC count of 22.4, hemoglobin 9.5, hematocrit 30.4, platelets 157. BMP on arrival: Sodium 135, potassium 5.3, chloride 106, serum bicarb 23, BUN 60, creatinine 1.23, glucose 531. Lactic 1.4. Troponin less than 0.012. NT proBNP 3100. Procalcitonin 0.35. Urinalysis shows small leukocyte esterase and pyuria. Negative for influenza, RSV, COVID. Patient is empirically covered on azithromycin and Rocephin. Vital signs are stable. On today's evaluation of 11/28/2023, the patient is being seen for a follow-up. Slightly improved compared to yesterday and the patient is currently on 40 Suboxone by nasal cannula with a pulse ox of 97%. Responding to the diuretics and the patient is currently in negative fluid balance. The white cell count is 16.8 with a hemoglobin of 10.5 and a platelet count of 179. The rest of the blood work and electrolytes are stable. Creatinine is up to 1.3 with a BUN of 45 and a sodium levels at 142. Potassium level needs to be replaced at 2.9. The patient remains on IV Rocephin. The patient is also on IV Lasix 40 mg every 12 hours. There is a single blood culture that showed gram-positive cocci in clusters, likely contaminant. This is 1 out of 2 bottles. Urine culture is showing gram-negative bacillus. Overall condition is stable. Hemodynamically stable. No hypotension. No fever. No significant tachycardia. On today's evaluation of 11/28/2023, the patient is feeling well. Less short of breath compared to yesterday. CHF is being optimized. The patient is still being diuresed with IV Lasix 40 mg every 12 hours. Fluid balance is -1 L over the past 24 hours. Renal function is stable with a BUN of 16 and creatinine 1.2 and a sodium levels at 140. Potassium level is at 3.6. The patient is currently on 4 L of O2 nasal cannula with a pulse ox of 98% and the oxygenation is stable and this can be gradually weaned off. The patient is responding nicely to diuretics. No clear indication for pneumonia. Nevertheless, the blood culture was presumptive MRSA in the urine culture was also positive for ESBL producing E. coli. The patient's UA showed small significant abnormalities. Procalcitonin level is at 0.26. Current antibiotic coverage includes Rocephin and vancomycin. Objective - Vital Signs Vital signs: Vital Signs Temp 97.9 F 11/29/23 14:00 Pulse 73 11/29/23 16:44 Resp 18 11/29/23 14:00 BP 156/64 11/29/23 14:00 Pulse Ox 98 11/29/23 14:00 FiO2 Intake & Output 11/28/23 11/29/23 11/29/23 18:59 06:59 18:59 Intake Total 480 Output Total 1500 400 Balance -1500 480 -400 Weight 63 kg Intake: Oral 480 Output: Urine 1500 400 Other: Voiding Method External Catheter Diaper Diaper External Catheter External Catheter # Voids 3 # Bowel Movements 1 2 - Exam GENERAL EXAM: Alert, 88-year-old white female, hard of hearing, comfortable in no apparent distress. HEAD: Normocephalic and atraumatic EYES: Normal reaction of pupils, equal size. NOSE: Clear with pink turbinates. THROAT: No erythema or exudates. NECK: No masses, no JVD. CHEST: No chest wall deformity. LUNGS: Equal air entry with bibasilar crackles. No wheeze, rhonchi or focal dullness. On 4 L/min nasal cannula. No conversational dyspnea or accessory muscle use while at rest.. CVS: S1 and S2 normal with soft grade 1/6 systolic murmur, regular rhythm. No other extra heart sounds ABDOMEN: No hepatosplenomegaly, active bowel sounds, no guarding or rigidity. SPINE: No scoliosis or deformity SKIN: No rashes CENTRAL NERVOUS SYSTEM: No focal deficits, tone is normal in all 4 extremities. EXTREMITIES: There is 4+ bilateral lower extremity pitting edema. Clubbing, or cyanosis. Peripheral pulses are intact. - Labs CBC & Chem 7: 11/28/23 05:37 11/29/23 07:07 Labs: Abnormal Lab Results - Last 24 Hours (Table) 11/28/23 11/29/23 11/29/23 Range/Units 22:25 06:42 07:06 Carbon Dioxide (22-30) mmol/L BUN (7-17) mg/dL Creatinine (0.52-1.04) mg/dL POC Glucose (mg/dL) 454 H 64 L 111 H (70-110) mg/dL 11/29/23 11/29/23 11/29/23 Range/Units 07:07 12:24 16:47 Carbon Dioxide 34 H (22-30) mmol/L BUN 60 H (7-17) mg/dL Creatinine 1.20 H (0.52-1.04) mg/dL POC Glucose (mg/dL) 122 H 261 H (70-110) mg/dL Microbiology - Last 24 Hours (Table) 11/26/23 17:00 Blood Culture Gram Stain - Preliminary Blood Blood Culture - Preliminary Presumptive MRSA 11/26/23 15:37 Urine Culture - Final Urine,Clean Catch Klebsiella pneumoniae 11/26/23 17:15 Blood Culture - Preliminary Blood Assessment and Plan Assessment: Acute on chronic hypoxemic respiratory failure, likely secondary to exacerbation of diastolic congestive heart failure, and superimposed pneumonia is felt to be less likely. Chest x-ray shows diffuse patchy fluffy infiltrates and mild cardiomegaly concerning for pulmonary edema and/or multifocal pneumonia is within the differential. NT proBNP was elevated at 3100. The patient responding nicely to diuretics and patient is currently on IV Lasix. The patient is currently on 40 Suboxone by nasal cannula with a pulse ox of 98%. She remains on IV Lasix. Chronic diastolic heart failure and valvular heart disease with moderate to severe mitral regurgitation and severe tricuspid regurgitation with secondary pulmonary hypertension. Left ventricular ejection fraction was estimated at 55 to 60% on most recent echocardiogram. Severe mitral regurgitation Chronic hypoxemic respiratory failure, secondary to above Leukocytosis, improving Gram-negative urine tract infection, ESBL producing E. coli with a mildly abnormal UA. Could be colonization versus true infection Gram-positive cocci in the blood cultures, presumptive MRSA awaiting further cultures. Currently on vancomycin. Acute kidney injury, creatinine is stable and improved compared to yesterday Benign essential hypertension History of hyperlipidemia Diabetes mellitus type 2 History of fall with right hip fracture and recent complicated hospital stay at outside facility ECF resident Plan: Patient is on oxygen at 4 L/min nasal cannula. No clear indication for pneumonia. Will monitor the blood cultures, and continue vancomycin for now IV Rocephin may be discontinued and the patient may need to have another UA and urine cultures The white cell count is elevated and this needs to be monitored. .
[2023-11-29] MEDS: VANCOMYCIN 1,250 MG in SODIUM CHLORIDE 0.9% 250 ML IVPB SCH (18:00)
[2023-11-29] MEDS: BACITRACIN OINT 1 EACH PACKET TOPICAL SCH (18:00)
[2023-11-29 20:45] LABS: Glucose,Whole Blood 245 mg/dL (70-110)
--- NOTE | 2023-11-30 00:34 | CONS ---
CONSULTATION REASON FOR CONSULTATION: Bleeding, painful, left ear. HISTORY OF PRESENT ILLNESS: This patient was seen by me on 11/29/2023 for evaluation of complaints of a bleeding left ear with pain. The patient states that approximately 2 weeks prior to her admission to the hospital, she experienced an area of itching in her left ear. She scratched this area and it subsequently started to bleed. Over the past couple of weeks, she has apparently continued to scratch and injure this area because of mild itching. She also complains that there has been some decrease in hearing in the left ear. She states that the left ear is tender to touch on the outside, but there is no deep pain. She admits to using Q-tips to clean her ears, and I have advised her to stop for obvious health reasons. At the time that the patient is seen in the hospital room, she is resting comfortably and is not complaining of any ear pain or bleeding. She was admitted to the hospital for treatment of congestive heart failure. PAST MEDICAL HISTORY: Reveals she has no allergies to medications. CURRENT MEDICATIONS: Include, 1. Xarelto. 2. DuoNeb. 3. Insulin. 4. Requip. 5. Prednisone. 6. Potassium supplement. 7. Procardia. 8. Hydralazine. 9. Lasix. 10.Coreg. 11.Cymbalta. 12.Lipitor. 13.Baby aspirin daily. 14.Albuterol. REVIEW OF SYSTEMS: CARDIOVASCULAR: Positive for hypertension and ASHD. RESPIRATORY: Positive for COPD/emphysema. METABOLIC/ENDOCRINE: Positive for type 1 diabetes mellitus and hypercholesterolemia. The remainder of the review of systems is essentially unremarkable. PHYSICAL EXAMINATION: GENERAL: This patient is an 88-year-old female, who was alert and cooperative. HEENT: The patient is normocephalic. Examination of the patient's right ear reveals it to be unremarkable. There is some cerumen in the canal, but it is not occluding. The right tympanic membrane appears to be normal. Examination of left ear also reveals presence of nonoccluding cerumen. The left tympanic membrane appears to be normal and free of any fluid or infection. Examination of the auricle/pinna reveals that there is an area of excoriation on the inferior aspect of the conchal bowl. This appears to be related to a traumatic injury and there is dried blood in this area. There is no tragal tenderness and no drainage from the ear canal itself. Also, there was no blood in the ear canal. There is some slight tenderness to the left ear to deep palpation over the injured area. Pupils are equal, round, reactive to light and accommodation. Extraocular movements within normal limits. Intranasal examination reveals moderate to severe septal deviation with compensatory hypertrophy of inferior turbinates and a moderate amount of mucus on the mucous membranes and draining down the posterior pharynx. Remainder of the head and neck exam is unremarkable. CHEST/CARDIOVASCULAR: Lung massey are clear. Lung sounds are distant. The patient is in regular sinus rhythm. Peripheral pulses are bilaterally symmetrical. ABDOMEN: There is no evidence any masses, megaly, or tenderness. Abdomen is soft. The remainder of physical exam is unremarkable. IMPRESSION: Excoriation/trauma to the left auricle/pinna. PLAN: The patient states that in the past that she intermittently has itching in this particular area of the left and the right ear. I have advised her that she may use [id number] hydrocortisone cream to stop this itching. In addition, I will have the nursing staff apply bacitracin ointment to the injured area of the left ear 3 times daily while the patient is in the hospital. The patient should continue this at home for at least 7 days after her discharge from the hospital. There is no need for her to follow up with my office. I will sign off on this patient at this time. If I can be of any further assistance, please feel free to call my office. MMIDA / IJN: [id number] /
[2023-11-30 06:26] LABS: Glucose,Whole Blood 52 mg/dL (70-110)
[2023-11-30 06:47] LABS: Glucose,Whole Blood 82 mg/dL (70-110)
[2023-11-30] MEDS: ERTAPENEM 1 GM in SODIUM CHLORIDE 0.9% 50 ML IVPB SCH (10:53)
[2023-11-30 11:33] LABS: Basophils # (A) 0.03 X 10*3/uL (0.00-0.10); Basophils % (A) 0.3 %; HCT 31.9 % (37.2-46.3); Lymphocytes # (A) 0.54 X 10*3/uL (0.90-5.00); Lymphocytes % (A) 5.3 %; MCH 30.2 pg (27.0-32.0); MCHC 31.3 g/dL (32.0-37.0); MCV 96.4 FL (80.0-97.0); Mean Platelet Volume 11.9 FL (9.5-12.2); Monocytes # (A) 0.74 X 10*3/uL (0.20-1.00); Monocytes % (A) 7.3 %; NRBC Per 100 WBC 0 X 10*3/uL (0.00-0.01); Neutrophils # (A) 8.55 X 10*3/uL (1.80-7.70); Neutrophils % (A) 83.9 %; Platelet Count 202 X 10*3/uL (140-440); RBC 3.31 X 10*6/uL (4.10-5.20); RDW 15.5 % (11.5-14.5); WBC 10.18 X 10*3/uL (4.50-10.00)
[2023-11-30 11:55] LABS: Glucose,Whole Blood 230 mg/dL (70-110)
[2023-11-30 12:01] LABS: BUN/Creat Ratio 43.91 Ratio (12.00-20.00); Blood Urea Nitrogen 48.3 mg/dL (9.0-27.0); Calcium 8.9 mg/dL (8.7-10.3); Carbon Dioxide 31.6 mmol/L (21.6-31.8); Chloride 102 mmol/L (96-109); Glucose 35 mg/dL (70-110); Potassium 3.5 mmol/L (3.5-5.5); Sodium 144 mmol/L (135-145)
--- NOTE | 2023-11-30 13:43 | P.PN ---
Subjective Progress Note Date: 11/30/23 Heart failure The patient is a pleasant 88-year-old female patient with a past medical history significant for heart failure with preserved ejection fraction and valvular heart disease with mitral regurgitation as well as multiple comorbid conditions who was admitted to the hospital with acute hypoxic respiratory failure felt to be related to pneumonia and a component of heart failure. She was started on Lasix IV. November 28, 2023 She was seen and evaluated this morning. She is feeling slightly better in terms of the shortness of breath but she continues to be on oxygen. No pain in the chest. Blood work continues to be stable. From a cardiovascular standpoint of view, we will continue the current medical regimen and follow-up with her. The examination showed significant systolic murmur at the apical area with clear breathing sounds bilaterally and mild bilateral lower extremity edema November 29, 2023 The patient was seen this afternoon. She is feeling better. The shortness of breath has improved. She continues to have bilateral lower extremities edema. The blood work from this morning showed stable creatinine with that being said I am going to continue the current dose of Lasix IV and continue monitor the kidney function and electrolytes and follow-up with the patient. The exam ination is remarkable for systolic murmur at the apical area with clear breathing sounds bilaterally and bilateral lower extremities edema 3/4 Patient states that she is feeling better with less shortness of breath. Blood pressure 119/69, heart rate in the 60s and 70s, pulse ox 98% on 4 L. Repeat blood work reveals WBC 10.1, hemoglobin 10, platelet count 202. Electrolytes are normal. BUN 48 creatinine 1.1. Glucose 35. C-reactive protein 5.7. Procalcitonin 0.14. Patient has been on IV Lasix 40 mg every 12 hours and also on IV antibiotics. She has a negative fluid balance yesterday of 1020. Weight is down 1 kg. Patient has a positive blood culture with presumptive MRSA in the urine culture with Klebsiella followed by infectious disease. Will add in a repeat blood culture. The examination is remarkable for systolic murmur at the apical area with clear breathing sounds bilaterally and minimal bilateral lower extremities edema Assessment Heart failure with preserved ejection fraction Severe mitral regurgitation Hypertension Dyslipidemia Multiple comorbid conditions Plan Continue the current medical regimen Continue monitor the kidney function and electrolytes Transition IV Lasix to oral 40 mg twice daily Repeat blood culture and monitor for need for BRANDON Follow-up with the patient Nurse practitioner note has been reviewed, I agree with documented findings and plan of care. Patient was seen and examined. Objective - Vital Signs Vital signs: Vital Signs Temp 98.1 F 11/30/23 07:48 Pulse 64 11/30/23 11:42 Resp 18 11/30/23 11:42 BP 119/69 11/30/23 07:48 Pulse Ox 98 11/30/23 07:53 FiO2 Intake & Output 11/29/23 11/30/23 11/30/23 18:59 06:59 18:59 Intake Total 980 Output Total 400 1000 Balance -400 -20 Weight 63 kg Intake: Oral 980 Output: Urine 400 1000 Other: Voiding Method Diaper Diaper Diaper External Catheter External Catheter External Catheter # Voids 3 # Bowel Movements 2 - Labs CBC & Chem 7: 11/30/23 06:03 11/30/23 06:03 Labs: Abnormal Lab Results - Last 24 Hours (Table) 11/29/23 11/29/23 11/30/23 Range/Units 16:47 20:44 06:03 WBC (4.50-10.00) X 10*3/uL RBC (4.10-5.20) X 10*6/uL Hgb (12.0-15.0) g/dL Hct (37.2-46.3) % MCHC (32.0-37.0) g/dL RDW (11.5-14.5) % Immature Gran # (0.00-0.04) X 10*3/uL Neutrophils # (1.80-7.70) X 10*3/uL Lymphocytes # (0.90-5.00) X 10*3/uL BUN (9.0-27.0) mg/dL Est GFR (CKD-EPI) (>=60) BUN/Creatinine Ratio (12.00-20.00) Ratio Glucose (70-110) mg/dL POC Glucose (mg/dL) 261 H 245 H (70-110) mg/dL C-Reactive Protein (0.00-0.80) mg/dL Procalcitonin 0.14 H (0.02-0.09) ng/mL 11/30/23 11/30/23 11/30/23 Range/Units 06:03 06:03 06:24 WBC 10.18 H (4.50-10.00) X 10*3/uL RBC 3.31 L (4.10-5.20) X 10*6/uL Hgb 10.0 L (12.0-15.0) g/dL Hct 31.9 L (37.2-46.3) % MCHC 31.3 L (32.0-37.0) g/dL RDW 15.5 H (11.5-14.5) % Immature Gran # 0.12 H (0.00-0.04) X 10*3/uL Neutrophils # 8.55 H (1.80-7.70) X 10*3/uL Lymphocytes # 0.54 L (0.90-5.00) X 10*3/uL BUN 48.3 H (9.0-27.0) mg/dL Est GFR (CKD-EPI) 48 L (>=60) BUN/Creatinine Ratio 43.91 H (12.00-20.00) Ratio Glucose 35 A* (70-110) mg/dL POC Glucose (mg/dL) 52 L (70-110) mg/dL C-Reactive Protein 5.70 H (0.00-0.80) mg/dL Procalcitonin (0.02-0.09) ng/mL 11/30/23 Range/Units 11:54 WBC (4.50-10.00) X 10*3/uL RBC (4.10-5.20) X 10*6/uL Hgb (12.0-15.0) g/dL Hct (37.2-46.3) % MCHC (32.0-37.0) g/dL RDW (11.5-14.5) % Immature Gran # (0.00-0.04) X 10*3/uL Neutrophils # (1.80-7.70) X 10*3/uL Lymphocytes # (0.90-5.00) X 10*3/uL BUN (9.0-27.0) mg/dL Est GFR (CKD-EPI) (>=60) BUN/Creatinine Ratio (12.00-20.00) Ratio Glucose (70-110) mg/dL POC Glucose (mg/dL) 230 H (70-110) mg/dL C-Reactive Protein (0.00-0.80) mg/dL Procalcitonin (0.02-0.09) ng/mL Microbiology - Last 24 Hours (Table) 11/26/23 17:15 Blood Culture - Preliminary Blood 11/26/23 17:00 Blood Culture Gram Stain - Preliminary Blood Blood Culture - Preliminary Presumptive MRSA 11/26/23 15:37 Urine Culture - Final Urine,Clean Catch Klebsiella pneumoniae
--- NOTE | 2023-11-30 13:58 | P.PN ---
Subjective Progress Note Date: 11/30/23 I am seeing this patient in consultation today 11/27/2023 after she was sent from her local ECF after being noted to be short of breath and hypoxic. Patient is a 88-year-old white female with past medical history significant for congestive heart failure, chronic hypoxemic respiratory failure on 2 L O2 at baseline, diabetes mellitus, hypertension, hyperlipidemia, and recent right- sided hip fracture with prolonged hospitalization at outside facility. She resides at [facility]. She had a recent hospitalization at our facility in September of this year for congestive heart failure. Echocardiogram done 10/09/2023 showed a preserved left ventricular ejection fraction, moderate mitral regurgitation, moderate to severe tricuspid regurgitation, and severe pulmonary hypertension. There was a repeat hospital admission earlier in October of this year for similar symptoms. She was incidentally noted to be influenza A positive. She was discharged back to her ECF 11/06/2023. She has been taking Lasix 40 mg twice daily. She has completed her course of Tamiflu. Patient returns after progressively worsening dyspnea while at [facility]. She was noted to be hypoxic on her chronic 2 L/min nasal cannula. She was brought in by EMS yesterday afternoon. Patient is currently resting in bed, on 4 L/min nasal cannula, in no acute distress. She does have worsening lower extremity edema. Denies any chest pain, heart palpitations, lightheadedness, orthopnea, PND. Denies any fevers, chills, cough, hemoptysis. Chest x-ray done on arrival appears to show diffuse pulmonary edema and mild cardiomegaly. Superimposed multifocal pneumonia could be within the differential. CBC does show leukocytosis with a WBC count of 22.4, hemoglobin 9.5, hematocrit 30.4, platelets 157. BMP on arrival: Sodium 135, potassium 5.3, chloride 106, serum bicarb 23, BUN 60, creatinine 1.23, glucose 531. Lactic 1.4. Troponin less than 0.012. NT proBNP 3100. Procalcitonin 0.35. Urinalysis shows small leukocyte esterase and pyuria. Negative for influenza, RSV, COVID. Patient is empirically covered on azithromycin and Rocephin. Vital signs are stable. On today's evaluation of 11/28/2023, the patient is being seen for a follow-up. Slightly improved compared to yesterday and the patient is currently on 40 Suboxone by nasal cannula with a pulse ox of 97%. Responding to the diuretics and the patient is currently in negative fluid balance. The white cell count is 16.8 with a hemoglobin of 10.5 and a platelet count of 179. The rest of the blood work and electrolytes are stable. Creatinine is up to 1.3 with a BUN of 45 and a sodium levels at 142. Potassium level needs to be replaced at 2.9. The patient remains on IV Rocephin. The patient is also on IV Lasix 40 mg every 12 hours. There is a single blood culture that showed gram-positive cocci in clusters, likely contaminant. This is 1 out of 2 bottles. Urine culture is showing gram-negative bacillus. Overall condition is stable. Hemodynamically stable. No hypotension. No fever. No significant tachycardia. On today's evaluation of 11/28/2023, the patient is feeling well. Less short of breath compared to yesterday. CHF is being optimized. The patient is still being diuresed with IV Lasix 40 mg every 12 hours. Fluid balance is -1 L over the past 24 hours. Renal function is stable with a BUN of 16 and creatinine 1.2 and a sodium levels at 140. Potassium level is at 3.6. The patient is currently on 4 L of O2 nasal cannula with a pulse ox of 98% and the oxygenation is stable and this can be gradually weaned off. The patient is responding nicely to diuretics. No clear indication for pneumonia. Nevertheless, the blood culture was presumptive MRSA in the urine culture was also positive for ESBL producing E. coli. The patient's UA showed small significant abnormalities. Procalcitonin level is at 0.26. Current antibiotic coverage includes Rocephin and vancomycin. The patient is seen today November 30, 2023 in follow-up on the regular medical floor. She is currently resting comfortably in bed. Awake and alert in no acute distress. She is maintaining good O2 saturations in the upper 90s on 4 L/min per nasal cannula. Urine culture was positive for Klebsiella pneumoniae. Blood cultures are positive for MRSA. White count 10.1. Hemoglobin 10.0. Platelets 202. Sodium 144. Potassium 3.5. Bicarb 32. BUN 48. Creatinine 1.1. C-reactive protein 5.7. Procalcitonin 0.14. She is continued on DuoNeb inhalations, antibiotics in the form of ertapenem and vancomycin. Remains on oral diuretics. Objective - Vital Signs Vital signs: Vital Signs Temp 98.1 F 11/30/23 07:48 Pulse 64 11/30/23 11:42 Resp 18 11/30/23 11:42 BP 119/69 11/30/23 07:48 Pulse Ox 98 11/30/23 07:53 FiO2 Intake & Output 11/29/23 11/30/23 11/30/23 18:59 06:59 18:59 Intake Total 980 180 Output Total 400 1000 Balance -400 -20 180 Weight 63 kg Intake: Oral 980 180 Output: Urine 400 1000 Other: Voiding Method Diaper Diaper Diaper External Catheter External Catheter External Catheter # Voids 3 # Bowel Movements 2 - Exam GENERAL EXAM: Alert, 88-year-old female, hard of hearing, on 4 L/min nasal cannula, comfortable in no apparent distress. HEAD: Normocephalic and atraumatic EYES: Normal reaction of pupils, equal size. NOSE: Clear with pink turbinates. THROAT: No erythema or exudates. NECK: No masses, no JVD. CHEST: No chest wall deformity. LUNGS: Equal air entry with bibasilar crackles. No wheeze, rhonchi or focal dullness. No conversational dyspnea. CVS: S1 and S2 normal with soft grade 1/6 systolic murmur, regular rhythm. No other extra heart sounds ABDOMEN: No hepatosplenomegaly, active bowel sounds, no guarding or rigidity. SPINE: No scoliosis or deformity SKIN: No rashes CENTRAL NERVOUS SYSTEM: No focal deficits, tone is normal in all 4 extremities. EXTREMITIES: There is 3+ bilateral lower extremity pitting edema. Clubbing, or cyanosis. Peripheral pulses are intact. - Labs CBC & Chem 7: 11/30/23 06:03 11/30/23 06:03 Labs: Abnormal Lab Results - Last 24 Hours (Table) 11/29/23 11/29/23 11/30/23 Range/Units 16:47 20:44 06:03 WBC (4.50-10.00) X 10*3/uL RBC (4.10-5.20) X 10*6/uL Hgb (12.0-15.0) g/dL Hct (37.2-46.3) % MCHC (32.0-37.0) g/dL RDW (11.5-14.5) % Immature Gran # (0.00-0.04) X 10*3/uL Neutrophils # (1.80-7.70) X 10*3/uL Lymphocytes # (0.90-5.00) X 10*3/uL BUN (9.0-27.0) mg/dL Est GFR (CKD-EPI) (>=60) BUN/Creatinine Ratio (12.00-20.00) Ratio Glucose (70-110) mg/dL POC Glucose (mg/dL) 261 H 245 H (70-110) mg/dL C-Reactive Protein (0.00-0.80) mg/dL Procalcitonin 0.14 H (0.02-0.09) ng/mL 11/30/23 11/30/23 11/30/23 Range/Units 06:03 06:03 06:24 WBC 10.18 H (4.50-10.00) X 10*3/uL RBC 3.31 L (4.10-5.20) X 10*6/uL Hgb 10.0 L (12.0-15.0) g/dL Hct 31.9 L (37.2-46.3) % MCHC 31.3 L (32.0-37.0) g/dL RDW 15.5 H (11.5-14.5) % Immature Gran # 0.12 H (0.00-0.04) X 10*3/uL Neutrophils # 8.55 H (1.80-7.70) X 10*3/uL Lymphocytes # 0.54 L (0.90-5.00) X 10*3/uL BUN 48.3 H (9.0-27.0) mg/dL Est GFR (CKD-EPI) 48 L (>=60) BUN/Creatinine Ratio 43.91 H (12.00-20.00) Ratio Glucose 35 A* (70-110) mg/dL POC Glucose (mg/dL) 52 L (70-110) mg/dL C-Reactive Protein 5.70 H (0.00-0.80) mg/dL Procalcitonin (0.02-0.09) ng/mL 11/30/23 Range/Units 11:54 WBC (4.50-10.00) X 10*3/uL RBC (4.10-5.20) X 10*6/uL Hgb (12.0-15.0) g/dL Hct (37.2-46.3) % MCHC (32.0-37.0) g/dL RDW (11.5-14.5) % Immature Gran # (0.00-0.04) X 10*3/uL Neutrophils # (1.80-7.70) X 10*3/uL Lymphocytes # (0.90-5.00) X 10*3/uL BUN (9.0-27.0) mg/dL Est GFR (CKD-EPI) (>=60) BUN/Creatinine Ratio (12.00-20.00) Ratio Glucose (70-110) mg/dL POC Glucose (mg/dL) 230 H (70-110) mg/dL C-Reactive Protein (0.00-0.80) mg/dL Procalcitonin (0.02-0.09) ng/mL Microbiology - Last 24 Hours (Table) 11/26/23 17:00 Blood Culture Gram Stain - Final Blood Blood Culture - Final Methicillin resist S. aureus 11/26/23 17:15 Blood Culture - Preliminary Blood 11/26/23 15:37 Urine Culture - Final Urine,Clean Catch Klebsiella pneumoniae Assessment and Plan Assessment: Acute on chronic hypoxemic respiratory failure, likely secondary to exacerbation of diastolic congestive heart failure, and superimposed pneumonia is felt to be less likely. Chest x-ray shows diffuse patchy fluffy infiltrates and mild cardiomegaly concerning for pulmonary edema and/or multifocal pneumonia is within the differential. NT proBNP was elevated at 3100. The patient responding nicely to diuretics. Currently on 4 liters by nasal cannula. Chronic diastolic heart failure and valvular heart disease with moderate to severe mitral regurgitation and severe tricuspid regurgitation with secondary pulmonary hypertension. Left ventricular ejection fraction was estimated at 55 to 60% on most recent echocardiogram. Severe mitral regurgitation Chronic hypoxemic respiratory failure, secondary to above Leukocytosis, improving Gram-negative urine tract infection, ESBL producing Klebsiella pneumoniae with a mildly abnormal UA. Could be colonization versus true infection. Currently on Invanz Methicillin resistant Staphylococcus aureus in the blood cultures Currently on vancomycin. Acute kidney injury, creatinine is stable and improved compared to yesterday Benign essential hypertension History of hyperlipidemia Diabetes mellitus type 2 History of fall with right hip fracture and recent complicated hospital stay at outside facility ECF resident Plan: The patient was seen and evaluated Medications, microbiology and labs reviewed Continue the current treatment plan Remains on ertapenem and vancomycin Titrate down the FiO2 as tolerated Increase her activity as tolerated We will continue to follow I have personally seen and examined the patient, performed the documentation and the assessment and plan as written. Number of minutes spent on the visit: 10.
--- NOTE | 2023-11-30 15:36 | XR ---
EXAMINATION TYPE: XR chest 1V portable DATE OF EXAM: 11/30/2023 HISTORY: Shortness of breath. COMPARISON: 11/26/2023 TECHNIQUE: Single view of the chest is submitted. FINDINGS: Demonstrated are scattered senescent parenchymal change. Much improved aeration about the perihilar regions with residual perihilar infiltrate and pulmonary v enous congestion. The heart is stable. Hilar and mediastinal structures are within normal limits. Degenerative changes are seen of the dorsal spine. IMPRESSION: 1. Much improved aeration about the perihilar regions with residual perihilar infiltrate and pulmona ry venous congestion.
[2023-11-30 16:20] LABS: Glucose,Whole Blood 348 mg/dL (70-110)
--- NOTE | 2023-11-30 16:47 | CT ---
EXAMINATION TYPE: CT lumbar spine w con CT DLP: 764.5 mGycm, Automated exposure control for dose reduction was used. DATE OF EXAM: 11/30/2023 4:06 PM COMPARISON: 11/03/2023 CT. CLINICAL INDICATION:Female, 88 years old with history of lumbar wound /ABSCESS , MRSA bacteremia; PHH , Lumbar wound /ABSCESS , MRSA bacteremia. TECHNIQUE: Multiple axial images were obtained from the midportion of T11 through the sacroiliac meli nts. Soft tissue and bone windows in coronal and sagittal planes were obtained and reviewed. 3-D ref ormats of the bones were created on a separate workstation and submitted for review. Contrast used:80 ml mL of Isovue 300 , (None, if empty). Oral contrast used: (None, if empty). FINDINGS: There is severe deformity to the spine with complete loss of the L1 vertebrae. Vacuum disc phenomenon and gas within the vertebral body bed. No organizing fluid collections definitively visualized in th e subcutaneous tissues. There is severe degeneration changes throughout the visualized spine with increased sclerosis seconda ry to complete loss of disc height mentioned above of the L1 vertebrae. Spinal canal is narrowed at L to L3 with at least moderate stenosis. At the level of L1 and is at least moderately narrowed. Due t o patient's spine alignment is difficult to assess on CT imaging. Neural foraminal stenosis worse at L2-L3 on the bilaterally with at least severe stenosis. Severe L1-L2 stenosis also present. Trace left and small right pleural effusion. Large hiatal hernia. Mitral valve annular cusp patient's of the heart. IMPRESSION: 1. Complete loss of vertebral body height of L1 vertebrae which is similar to 624.. Superimposed inf ection is not excluded. Findings not significantly changed from 11/03/2023. Consider MRI with IV contra st for complete evaluation. 2. No subcutaneous organizing fluid collections within the visualized on CT. 3. Degeneration changes throughout the spine with at least moderate spinal canal stenosis at the lev el of L1 and mild to moderate at the level of L3-L4. Severe neural foraminal stenosis at L1-L2 and L2 -L3 secondary to facet joint arthropathy.
[2023-11-30] MEDS: FUROSEMIDE 40 MG TAB PO SCH (16:51)
[2023-11-30] MEDS: VANCOMYCIN 1,250 MG in SODIUM CHLORIDE 0.9% 250 ML IVPB SCH (16:52)
[2023-11-30 20:56] LABS: Glucose,Whole Blood 358 mg/dL (70-110)
--- NOTE | 2023-11-30 22:15 | P.CONS ---
History of Present Illness - Reason for Consult Consult date: 11/30/23 MRSA bacteremia Requesting physician: Yasmeen Min - Chief Complaint Increasing shortness of breath x few days - History of Present Illness Patient is a 88-year-old female with a past medical history significant for diabetes mellitus hypertension pneumonia heart failure patient recently did have a fall leading to the right hip fracture status postsurgical repair since then the patient seem to have a problem with a nonhealing wound to the mid back area currently being treated with Aquacel silver dressing patient present to the hospital 5 days ago for evaluation of increasing shortness of breath and hypoxemia in this patient who was transferred from the local snf and she was noted to be hypoxic with O2 sats of 86% on 5 L nasal cannula oxygen patient was brought into the hospital and the patient has been afebrile throughout her hospital stay patient has not been tachycardic or hypotensive she did have occasional episode of hypoxemia and is currently on 4 L nasal cannula oxygen patient did have a white count of 22.4 on admission with a left shift white count is 10.18 today did have elevated creatinine subsequently normalized liver enzymes are normal did have a procalcitonin 0.35 patient did have a mildly positive UA on admission influenza RSV and COVID testing was negative patient did have a chest x-ray mild cardiomegaly with trace effusion pulmonary edema versus multifocal pneumonia patient blood cultures came back positive with MRSA patient was started on vancomycin infectious disease was consulted for further management of antibiotic therapy patient urine culture positive for ESBL Klebsiella she was on ceftriaxone that has been switched to Invanz yesterday Review of Systems Positive point and negatives has been mentioned in the HPI, complete review of systems was performed and all other systems are negative Past Medical History Past Medical History: Heart Failure, Diabetes Mellitus, Hypertension, Pneumonia Additional Past Medical History / Comment(s): new CHF 09/2023, "kidney damage" History of Any Multi-Drug Resistant Organisms: MRSA Year Discovered:: 07/29/23 MDRO Source:: sepsis Past Surgical History: Hysterectomy Additional Past Surgical History / Comment(s): R hip, cataract sx Past Anesthesia/Blood Transfusion Reactions: No Reported Reaction Smoking Status: Never smoker Past Alcohol Use History: None Reported Past Drug Use History: None Reported Medications and Allergies Home Medications Medication Instructions Recorded Confirmed Type Ergocalciferol (Vitamin D2) 1,250 mcg PO APPIAH 10/08/23 12/14/23 History [Drisdol (50,000 Iu)] Potassium Chloride ER [K-Dur 20] 40 meq PO BID tab 10/19/23 12/14/23 Rx Albuterol Sulfate [Albuterol 2 puff INHALATION RT-Q6H 11/02/23 12/14/23 History Sulfate Hfa] Atorvastatin [Lipitor] 20 mg PO DAILY 11/02/23 12/14/23 History Omeprazole 20 mg PO DAILY 11/02/23 12/14/23 History rOPINIRole HCL [Requip] 4 mg PO BID 11/02/23 12/14/23 History Collagenase [Santyl Ointment] 1 applic TOPICAL DAILY each 11/06/23 12/14/23 Rx DULoxetine HCL [Cymbalta] 60 mg PO BID 11/26/23 12/14/23 History Furosemide [Lasix] 40 mg PO BID@0800,1600 11/26/23 12/14/23 History Insulin Lispro [Insulin Lispro See Protocol SQ AC-TID 11/26/23 12/14/23 History Kwikpen U-100] Ipratropium-Albuterol Nebulize 3 ml INHALATION RT-BID 11/26/23 12/14/23 History [Duoneb 0.5 mg-3 mg/3 ml Soln] Darbepoetin [place] [Aranesp] 40 mcg SQ Q7D #1 each 12/08/23 12/14/23 Rx Insulin Glargine-Yfgn 20 units SQ DAILY #0 12/08/23 12/14/23 Rx Aspirin EC [Ecotrin Low Dose] 81 mg PO DAILY 12/14/23 12/14/23 History NIFEdipine XL [Procardia XL] 60 mg PO DAILY 12/14/23 12/14/23 History carvediloL [Coreg*] 12.5 mg PO BID-W/MEALS #60 tab 12/15/23 Rx hydrALAZINE HCL [Apresoline] 50 mg PO BID #60 tab 12/15/23 Rx predniSONE See Taper PO DIRECTED 3 Days #3 12/15/23 Rx tab Allergies Allergy/AdvReac Type Severity Reaction Status Date / Time No Known Allergies Allergy Verified 12/14/23 14:59 Physical Exam Vitals: Vital Signs Temp Pulse Pulse Pulse Resp BP BP 11/30/23 08:03 70 11/30/23 07:53 66 11/30/23 07:48 98.1 F 65 16 119/69 11/30/23 03:08 98.8 F 65 20 129/66 11/29/23 20:00 18 11/29/23 17:57 70 131/63 11/29/23 16:44 73 11/29/23 16:35 71 11/29/23 14:00 97.9 F 74 18 156/64 11/29/23 12:44 70 11/29/23 12:32 68 Pulse Ox 11/30/23 08:03 11/30/23 07:53 98 11/30/23 07:48 98 11/30/23 03:08 96 11/29/23 20:00 11/29/23 17:57 11/29/23 16:44 11/29/23 16:35 11/29/23 14:00 98 11/29/23 12:44 11/29/23 12:32 Intake and Output 11/29/23 11/30/23 11/30/23 22:59 06:59 14:59 Intake Total 980 Output Total 1000 Balance -20 Intake: Oral 980 Output: Urine 1000 Other: Voiding Method Diaper External Catheter # Voids 3 # Bowel Movements 2 Weight 63 kg GENERAL DESCRIPTION: Elderly female lying in bed, no distress. No tachypnea or accessory muscle of respiration use. HEENT: Shows Pallor , no scleral icterus. Oral mucous membrane is dry. No pharyngeal erythema or thrush NECK: Trachea central, no thyromegaly. LUNGS: Unlabored breathing. Decreased breath sound the base HEART: S1, S2, regular rate and rhythm. No loud murmur ABDOMEN: Soft, no tenderness , guarding or rigidity, no organomegaly EXTREMITIES: No edema of feet. SKIN: Patient did have wound to the mid back area with no significant slough tissue surrounding redness or drainage NEUROLOGICAL: The patient is awake, alert, oriented x3, mood and affect normal. Results CBC & Chem 7: 12/07/23 05:03 12/08/23 04:52 Labs: Abnormal Lab Results - Last 24 Hours (Table) 11/29/23 11/29/23 11/29/23 Range/Units 12:24 16:47 20:44 POC Glucose (mg/dL) 122 H 261 H 245 H (70-110) mg/dL 11/30/23 Range/Units 06:24 POC Glucose (mg/dL) 52 L (70-110) mg/dL Microbiology - Last 24 Hours (Table) 11/26/23 17:15 Blood Culture - Preliminary Blood 11/26/23 17:00 Blood Culture Gram Stain - Preliminary Blood Blood Culture - Preliminary Presumptive MRSA 11/26/23 15:37 Urine Culture - Final Urine,Clean Catch Klebsiella pneumoniae Assessment and Plan (1) MRSA bacteremia Status: Acute Code(s): R78.81 - BACTEREMIA; B95.62 - METHICILLIN RESIS STAPH INFCT CAUSING DISEASES [facility] Code(s): [id number] Plan: 1patient with MRSA bacteremia in this patient presented to hospital with increasing shortness of breath however no significant cough or sputum production clinically not behaving as pneumonia the patient did have a wound to the mid back area did have some purulent drainage which has been culture and high clinical suspicion for possible lumbar spine disease versus paraspinal abscess 2-we will obtain a CT of the lumbar spine with contrast 3-local wound culture has been obtained 4-blood culture will be repeated document clearance of bacteremia check inflammatory markers 5-vancomycin pharmacy to dose target trough of 15 while watching kidney function and Vanco trough closely 6-patient also have a positive urine culture with ESBL Klebsiella however urine was not significantly positive no significant urinary symptoms repeat a UA continue Invanz Daughter at the bedside multiple questions answered We will follow on clinical condition and cultures to further adjust medication if needed Thank you for this consultation we will follow the patient along with you Dictation was produced using [employer] dictation software. please excuse any grammatical, word or spelling errors. Time with Patient: Greater than 30
--- NOTE | 2023-12-01 02:37 | PN ---
PROGRESS NOTE DATE OF SERVICE: 11/30/2023 SUBJECTIVE: This is an 88-year-old woman, who was admitted with multifocal pneumonia multiple consultants are following the patient closely. The patient is on broad-spectrum IV antibiotics including vancomycin. Culture showing MRSA. Urine culture showed Klebsiella pneumoniae. PAST MEDICAL HISTORY: Reviewed. REVIEW OF SYSTEM: 14-point review is negative except as mentioned. CURRENT MEDICATIONS: Reviewed. PHYSICAL EXAMINATION: VITAL SIGNS: Pulse is 68, blood pressure 124/60, respirations 17. CHEST: Few scattered rhonchi. ABDOMEN: Soft, nontender. NERVOUS SYSTEM: Nonfocal. LABORATORY DATA: WBC 10.18. Rest of the labs are noted. ASSESSMENT: 1. Acute multifocal pneumonia with acute on chronic hypoxic respiratory failure. 2. Chronic diastolic congestive heart failure. 3. Acute renal injury. 4. Urinary tract infection. 5. Elevated WBC. 6. Painful bleeding from the left ear secondary to excoriation trauma. 7. Methicillin-resistant Staphylococcus aureus from the blood and Klebsiella pneumoniae from the urine. RECOMMENDATIONS AND DISCUSSION: I recommended to continue current management and treatment. Otherwise, I would also recommend a D-dimer and follow with CT angio if positive. Otherwise, most recent 2D echo has been reviewed. Closely follow with multiple concerns. Repeat cultures are ordered. Prognosis may be guard because of multiple complex medical issues. Further recommendations to follow. MMODL / IJN: [id number] / SANJAY
[2023-12-01 06:05] LABS: African American GFR (CKD) 55 (>60 ml/min/1.73 sqM); Anion Gap 1 mmol/L; Blood Urea Nitrogen 54 mg/dL (7-17); C Reactive Protein 4.8 mg/dL (<1.0); Calcium 8.4 mg/dL (8.4-10.2); Carbon Dioxide 33 mmol/L (22-30); Chloride 104 mmol/L (98-107); Glucose 245 mg/dL (74-99); Non-African American GFR(CKD) 48 (>60 ml/min/1.73 sqM); Potassium 4.1 mmol/L (3.5-5.1); Sodium 138 mmol/L (137-145)
[2023-12-01 06:25] LABS: Glucose,Whole Blood 251 mg/dL (70-110)
[2023-12-01 08:38] LABS: Basophils # (A) 0.05 X 10*3/uL (0.00-0.10); Basophils % (A) 0.5 %; Eosinophils % (A) 1.8 %; HCT 30.4 % (37.2-46.3); HGB 9.5 g/dL (12.0-15.0); Lymphocytes # (A) 0.54 X 10*3/uL (0.90-5.00); MCHC 31.3 g/dL (32.0-37.0); MCV 95.9 FL (80.0-97.0); Mean Platelet Volume 11.7 FL (9.5-12.2); Monocytes # (A) 0.87 X 10*3/uL (0.20-1.00); NRBC Per 100 WBC 0 X 10*3/uL (0.00-0.01); Neutrophils % (A) 82.5 %; Platelet Count 211 X 10*3/uL (140-440); RBC 3.17 X 10*6/uL (4.10-5.20); RDW 15.5 % (11.5-14.5)
[2023-12-01 09:12] LABS: Erythrocyte Sedimentation Rate 80 mm/Hr (0-30)
[2023-12-01] MEDS: INSULIN DETEMIR (LEVEMIR) 100 UNIT/ML SYR SQ SCH (10:08)
[2023-12-01 11:21] LABS: Glucose,Whole Blood 252 mg/dL (70-110)
--- NOTE | 2023-12-01 12:21 | P.PN ---
Subjective Progress Note Date: 12/01/23 Heart failure The patient is a pleasant 88-year-old female patient with a past medical history significant for heart failure with preserved ejection fraction and valvular heart disease with mitral regurgitation as well as multiple comorbid conditions who was admitted to the hospital with acute hypoxic respiratory failure felt to be related to pneumonia and a component of heart failure. She was started on Lasix IV. November 28, 2023 She was seen and evaluated this morning. She is feeling slightly better in terms of the shortness of breath but she continues to be on oxygen. No pain in the chest. Blood work continues to be stable. From a cardiovascular standpoint of view, we will continue the current medical regimen and follow-up with her. The examination showed significant systolic murmur at the apical area with clear breathing sounds bilaterally and mild bilateral lower extremity edema November 29, 2023 The patient was seen this afternoon. She is feeling better. The shortness of breath has improved. She continues to have bilateral lower extremities edema. The blood work from this morning showed stable creatinine with that being said I am going to continue the current dose of Lasix IV and continue monitor the kidney function and electrolytes and follow-up with the patient. The exam ination is remarkable for systolic murmur at the apical area with clear breathing sounds bilaterally and bilateral lower extremities edema 3/4 Patient states that she is feeling better with less shortness of breath. Blood pressure 119/69, heart rate in the 60s and 70s, pulse ox 98% on 4 L. Repeat blood work reveals WBC 10.1, hemoglobin 10, platelet count 202. Electrolytes are normal. BUN 48 creatinine 1.1. Glucose 35. C-reactive protein 5.7. Procalcitonin 0.14. Patient has been on IV Lasix 40 mg every 12 hours and also on IV antibiotics. She has a negative fluid balance yesterday of 1020. Weight is down 1 kg. Patient has a positive blood culture with presumptive MRSA in the urine culture with Klebsiella followed by infectious disease. Will add in a repeat blood culture. The examination is remarkable for systolic murmur at the apical area with clear breathing sounds bilaterally and minimal bilateral lower extremities edema. 3/5 Yesterday, IV Lasix was transition to oral 40 mg twice daily. Repeat blood culture was ordered. Blood pressure 151/73, heart rate 73, pulse ox 91% on room air. Repeat blood work reveals WBC 10.9, hemoglobin 9.5. Sodium 138, potassium 4.1, BUN 54 creatinine 1.05. TSH 3.17. Chest x-ray from yesterday afternoon reviewed much improved aeration about the perihilar regions with residual perihilar infiltrate and pulmonary venous congestion. Patient is followed by infectious disease.The examination is remarkable for systolic murmur at the apical area with clear breathing sounds bilaterally and minimal bilateral lower extremities edema. Assessment Heart failure with preserved ejection fraction Severe mitral regurgitation Hypertension Dyslipidemia Multiple comorbid conditions MRSA bacteremia UTI Plan Continue the current medical regimen Continue monitor the kidney function and electrolytes Continue Lasix oral 40 mg twice daily Monitor for need for BRANDON Follow-up with the patient Nurse practitioner note has been reviewed, I agree with documented findings and plan of care. Patient was seen and examined. Objective - Vital Signs Vital signs: Vital Signs Temp 98.7 F 12/01/23 08:00 Pulse 74 12/01/23 09:55 Resp 16 12/01/23 09:55 BP 151/73 12/01/23 08:00 Pulse Ox 91 L 12/01/23 08:00 FiO2 Intake & Output 11/30/23 12/01/23 12/01/23 18:59 06:59 18:59 Intake Total 180 Output Total 650 300 Balance -470 -300 Weight 63.5 kg Intake: Oral 180 Output: Urine 650 300 Other: Voiding Method Diaper Diaper External Catheter External Catheter - Labs CBC & Chem 7: 12/01/23 04:50 12/01/23 04:50 Labs: Abnormal Lab Results - Last 24 Hours (Table) 11/30/23 11/30/23 11/30/23 Range/Units 06:03 06:03 06:03 WBC 10.18 H (4.50-10.00) X 10*3/uL RBC 3.31 L (4.10-5.20) X 10*6/uL Hgb 10.0 L (12.0-15.0) g/dL Hct 31.9 L (37.2-46.3) % MCHC 31.3 L (32.0-37.0) g/dL RDW 15.5 H (11.5-14.5) % Immature Gran # 0.12 H (0.00-0.04) X 10*3/uL Neutrophils # 8.55 H (1.80-7.70) X 10*3/uL Lymphocytes # 0.54 L (0.90-5.00) X 10*3/uL ESR (0-30) mm/Hr D-Dimer (<0.60) mg/L FEU Carbon Dioxide (22-30) mmol/L BUN 48.3 H (9.0-27.0) mg/dL Creatinine (0.52-1.04) mg/dL Est GFR (CKD-EPI) 48 L (>=60) BUN/Creatinine Ratio 43.91 H (12.00-20.00) Ratio Glucose 35 A* (70-110) mg/dL POC Glucose (mg/dL) (70-110) mg/dL C-Reactive Protein 5.70 H (0.00-0.80) mg/dL Procalcitonin 0.14 H (0.02-0.09) ng/mL 11/30/23 11/30/23 11/30/23 Range/Units 11:54 16:19 16:47 WBC (4.50-10.00) X 10*3/uL RBC (4.10-5.20) X 10*6/uL Hgb (12.0-15.0) g/dL Hct (37.2-46.3) % MCHC (32.0-37.0) g/dL RDW (11.5-14.5) % Immature Gran # (0.00-0.04) X 10*3/uL Neutrophils # (1.80-7.70) X 10*3/uL Lymphocytes # (0.90-5.00) X 10*3/uL ESR (0-30) mm/Hr D-Dimer 3.73 H (<0.60) mg/L FEU Carbon Dioxide (22-30) mmol/L BUN (9.0-27.0) mg/dL Creatinine (0.52-1.04) mg/dL Est GFR (CKD-EPI) (>=60) BUN/Creatinine Ratio (12.00-20.00) Ratio Glucose (70-110) mg/dL POC Glucose (mg/dL) 230 H 348 H (70-110) mg/dL C-Reactive Protein (0.00-0.80) mg/dL Procalcitonin (0.02-0.09) ng/mL 11/30/23 12/01/23 12/01/23 Range/Units 20:54 04:50 04:50 WBC 10.90 H (4.50-10.00) X 10*3/uL RBC 3.17 L (4.10-5.20) X 10*6/uL Hgb 9.5 L (12.0-15.0) g/dL Hct 30.4 L (37.2-46.3) % MCHC 31.3 L (32.0-37.0) g/dL RDW 15.5 H (11.5-14.5) % Immature Gran # 0.24 H (0.00-0.04) X 10*3/uL Neutrophils # 9.00 H (1.80-7.70) X 10*3/uL Lymphocytes # 0.54 L (0.90-5.00) X 10*3/uL ESR 80 H (0-30) mm/Hr D-Dimer (<0.60) mg/L FEU Carbon Dioxide 33 H (22-30) mmol/L BUN 54 H (9.0-27.0) mg/dL Creatinine 1.05 H (0.52-1.04) mg/dL Est GFR (CKD-EPI) (>=60) BUN/Creatinine Ratio (12.00-20.00) Ratio Glucose 245 H (70-110) mg/dL POC Glucose (mg/dL) 358 H (70-110) mg/dL C-Reactive Protein 4.8 H (0.00-0.80) mg/dL Procalcitonin (0.02-0.09) ng/mL 12/01/23 Range/Units 06:24 WBC (4.50-10.00) X 10*3/uL RBC (4.10-5.20) X 10*6/uL Hgb (12.0-15.0) g/dL Hct (37.2-46.3) % MCHC (32.0-37.0) g/dL RDW (11.5-14.5) % Immature Gran # (0.00-0.04) X 10*3/uL Neutrophils # (1.80-7.70) X 10*3/uL Lymphocytes # (0.90-5.00) X 10*3/uL ESR (0-30) mm/Hr D-Dimer (<0.60) mg/L FEU Carbon Dioxide (22-30) mmol/L BUN (9.0-27.0) mg/dL Creatinine (0.52-1.04) mg/dL Est GFR (CKD-EPI) (>=60) BUN/Creatinine Ratio (12.00-20.00) Ratio Glucose (70-110) mg/dL POC Glucose (mg/dL) 251 H (70-110) mg/dL C-Reactive Protein (0.00-0.80) mg/dL Procalcitonin (0.02-0.09) ng/mL Microbiology - Last 24 Hours (Table) 11/30/23 11:40 Gram Stain - Preliminary Back 11/26/23 17:00 Blood Culture Gram Stain - Final Blood Blood Culture - Final Methicillin resist S. aureus
--- NOTE | 2023-12-01 13:57 | P.PN ---
Subjective Progress Note Date: 12/01/23 I am seeing this patient in consultation today 11/27/2023 after she was sent from her local ECF after being noted to be short of breath and hypoxic. Patient is a 88-year-old white female with past medical history significant for congestive heart failure, chronic hypoxemic respiratory failure on 2 L O2 at baseline, diabetes mellitus, hypertension, hyperlipidemia, and recent right- sided hip fracture with prolonged hospitalization at outside facility. She resides at [facility]. She had a recent hospitalization at our facility in September of this year for congestive heart failure. Echocardiogram done 10/09/2023 showed a preserved left ventricular ejection fraction, moderate mitral regurgitation, moderate to severe tricuspid regurgitation, and severe pulmonary hypertension. There was a repeat hospital admission earlier in October of this year for similar symptoms. She was incidentally noted to be influenza A positive. She was discharged back to her ECF 11/06/2023. She has been taking Lasix 40 mg twice daily. She has completed her course of Tamiflu. Patient returns after progressively worsening dyspnea while at [facility]. She was noted to be hypoxic on her chronic 2 L/min nasal cannula. She was brought in by EMS yesterday afternoon. Patient is currently resting in bed, on 4 L/min nasal cannula, in no acute distress. She does have worsening lower extremity edema. Denies any chest pain, heart palpitations, lightheadedness, orthopnea, PND. Denies any fevers, chills, cough, hemoptysis. Chest x-ray done on arrival appears to show diffuse pulmonary edema and mild cardiomegaly. Superimposed multifocal pneumonia could be within the differential. CBC does show leukocytosis with a WBC count of 22.4, hemoglobin 9.5, hematocrit 30.4, platelets 157. BMP on arrival: Sodium 135, potassium 5.3, chloride 106, serum bicarb 23, BUN 60, creatinine 1.23, glucose 531. Lactic 1.4. Troponin less than 0.012. NT proBNP 3100. Procalcitonin 0.35. Urinalysis shows small leukocyte esterase and pyuria. Negative for influenza, RSV, COVID. Patient is empirically covered on azithromycin and Rocephin. Vital signs are stable. On today's evaluation of 11/28/2023, the patient is being seen for a follow-up. Slightly improved compared to yesterday and the patient is currently on 40 Suboxone by nasal cannula with a pulse ox of 97%. Responding to the diuretics and the patient is currently in negative fluid balance. The white cell count is 16.8 with a hemoglobin of 10.5 and a platelet count of 179. The rest of the blood work and electrolytes are stable. Creatinine is up to 1.3 with a BUN of 45 and a sodium levels at 142. Potassium level needs to be replaced at 2.9. The patient remains on IV Rocephin. The patient is also on IV Lasix 40 mg every 12 hours. There is a single blood culture that showed gram-positive cocci in clusters, likely contaminant. This is 1 out of 2 bottles. Urine culture is showing gram-negative bacillus. Overall condition is stable. Hemodynamically stable. No hypotension. No fever. No significant tachycardia. On today's evaluation of 11/28/2023, the patient is feeling well. Less short of breath compared to yesterday. CHF is being optimized. The patient is still being diuresed with IV Lasix 40 mg every 12 hours. Fluid balance is -1 L over the past 24 hours. Renal function is stable with a BUN of 16 and creatinine 1.2 and a sodium levels at 140. Potassium level is at 3.6. The patient is currently on 4 L of O2 nasal cannula with a pulse ox of 98% and the oxygenation is stable and this can be gradually weaned off. The patient is responding nicely to diuretics. No clear indication for pneumonia. Nevertheless, the blood culture was presumptive MRSA in the urine culture was also positive for ESBL producing E. coli. The patient's UA showed small significant abnormalities. Procalcitonin level is at 0.26. Current antibiotic coverage includes Rocephin and vancomycin. The patient is seen today November 30, 2023 in follow-up on the regular medical floor. She is currently resting comfortably in bed. Awake and alert in no acute distress. She is maintaining good O2 saturations in the upper 90s on 4 L/min per nasal cannula. Urine culture was positive for Klebsiella pneumoniae. Blood cultures are positive for MRSA. White count 10.1. Hemoglobin 10.0. Platelets 202. Sodium 144. Potassium 3.5. Bicarb 32. BUN 48. Creatinine 1.1. C-reactive protein 5.7. Procalcitonin 0.14. She is continued on DuoNeb inhalations, antibiotics in the form of ertapenem and vancomycin. Remains on oral diuretics. The patient is seen today December 01, 2023 in follow-up on the regular medical floor. She is sitting up at the bedside. Feeling a bit better today compared to yesterday. She is maintaining O2 saturations in the 90s on room air. Urine culture was positive for Klebsiella pneumoniae. Blood culture was positive for MRSA. White count 10.9. Hemoglobin 9.5. Platelets 211. Sodium 138. P otassium 4.1. Bicarb 33. BUN 54. Creatinine 1.05. Glucose 245. Chest x-ray revealed much improved aeration about the perihilar regions and residual perihilar infiltrate and pulmonary venous congestion. CT of the lumbar spine revealed complete loss of vertebral body height of L1 vertebrae. Superimposed infection is not excluded. No subcutaneous organizing fluid collection. Degenerative changes noted. He is continued on ertapenem and vancomycin. Remains on bronchodilators. Remains on diuretics. Objective - Vital Signs Vital signs: Vital Signs Temp 98.7 F 12/01/23 08:00 Pulse 64 12/01/23 13:06 Resp 16 12/01/23 13:06 BP 151/73 12/01/23 08:00 Pulse Ox 94 L 12/01/23 12:57 FiO2 Intake & Output 11/30/23 12/01/23 12/01/23 18:59 06:59 18:59 Intake Total 180 Output Total 650 300 Balance -470 -300 Weight 63.5 kg Intake: Oral 180 Output: Urine 650 300 Other: Voiding Method Diaper Diaper Diaper External Catheter External Catheter External Catheter - Exam GENERAL EXAM: Alert, 88-year-old female, on room air, comfortable in no apparent distress. HEAD: Normocephalic and atraumatic EYES: Normal reaction of pupils, equal size. NOSE: Clear with pink turbinates. THROAT: No erythema or exudates. NECK: No masses, no JVD. CHEST: No chest wall deformity. LUNGS: Equal air entry with bibasilar crackles. No wheeze, rhonchi or focal dullness. No conversational dyspnea. CVS: S1 and S2 normal with soft grade 1/6 systolic murmur, regular rhythm. No other extra heart sounds ABDOMEN: No hepatosplenomegaly, active bowel sounds, no guarding or rigidity. SPINE: No scoliosis or deformity SKIN: No rashes CENTRAL NERVOUS SYSTEM: No focal deficits, tone is normal in all 4 extremities. EXTREMITIES: There is 3+ bilateral lower extremity pitting edema. Clubbing, or cyanosis. Peripheral pulses are intact. - Labs CBC & Chem 7: 12/01/23 04:50 12/01/23 04:50 Labs: Abnormal Lab Results - Last 24 Hours (Table) 11/30/23 11/30/23 11/30/23 Range/Units 16:19 16:47 20:54 WBC (4.50-10.00) X 10*3/uL RBC (4.10-5.20) X 10*6/uL Hgb (12.0-15.0) g/dL Hct (37.2-46.3) % MCHC (32.0-37.0) g/dL RDW (11.5-14.5) % Immature Gran # (0.00-0.04) X 10*3/uL Neutrophils # (1.80-7.70) X 10*3/uL Lymphocytes # (0.90-5.00) X 10*3/uL ESR (0-30) mm/Hr D-Dimer 3.73 H (<0.60) mg/L FEU Carbon Dioxide (22-30) mmol/L BUN (7-17) mg/dL Creatinine (0.52-1.04) mg/dL Glucose (74-99) mg/dL POC Glucose (mg/dL) 348 H 358 H (70-110) mg/dL C-Reactive Protein (<1.0) mg/dL 12/01/23 12/01/23 12/01/23 Range/Units 04:50 04:50 06:24 WBC 10.90 H (4.50-10.00) X 10*3/uL RBC 3.17 L (4.10-5.20) X 10*6/uL Hgb 9.5 L (12.0-15.0) g/dL Hct 30.4 L (37.2-46.3) % MCHC 31.3 L (32.0-37.0) g/dL RDW 15.5 H (11.5-14.5) % Immature Gran # 0.24 H (0.00-0.04) X 10*3/uL Neutrophils # 9.00 H (1.80-7.70) X 10*3/uL Lymphocytes # 0.54 L (0.90-5.00) X 10*3/uL ESR 80 H (0-30) mm/Hr D-Dimer (<0.60) mg/L FEU Carbon Dioxide 33 H (22-30) mmol/L BUN 54 H (7-17) mg/dL Creatinine 1.05 H (0.52-1.04) mg/dL Glucose 245 H (74-99) mg/dL POC Glucose (mg/dL) 251 H (70-110) mg/dL C-Reactive Protein 4.8 H (<1.0) mg/dL 12/01/23 Range/Units 11:20 WBC (4.50-10.00) X 10*3/uL RBC (4.10-5.20) X 10*6/uL Hgb (12.0-15.0) g/dL Hct (37.2-46.3) % MCHC (32.0-37.0) g/dL RDW (11.5-14.5) % Immature Gran # (0.00-0.04) X 10*3/uL Neutrophils # (1.80-7.70) X 10*3/uL Lymphocytes # (0.90-5.00) X 10*3/uL ESR (0-30) mm/Hr D-Dimer (<0.60) mg/L FEU Carbon Dioxide (22-30) mmol/L BUN (7-17) mg/dL Creatinine (0.52-1.04) mg/dL Glucose (74-99) mg/dL POC Glucose (mg/dL) 252 H (70-110) mg/dL C-Reactive Protein (<1.0) mg/dL Microbiology - Last 24 Hours (Table) 11/30/23 11:40 Gram Stain - Preliminary Back 11/26/23 17:00 Blood Culture Gram Stain - Final Blood Blood Culture - Final Methicillin resist S. aureus Assessment and Plan Assessment: Acute on chronic hypoxemic respiratory failure, likely secondary to exacerbation of diastolic congestive heart failure, and superimposed pneumonia is felt to be less likely. Chest x-ray initially showed diffuse patchy fluffy infiltrates and mild cardiomegaly concerning for pulmonary edema and/or multifocal pneumonia is within the differential. NT proBNP was elevated at 3100. The patient responding nicely to diuretics. Currently on room air and follow-up chest x-ray shows significant improvement. Chronic diastolic heart failure and valvular heart disease with moderate to severe mitral regurgitation and severe tricuspid regurgitation with secondary pulmonary hypertension. Left ventricular ejection fraction was estimated at 55 to 60% on most recent echocardiogram. Severe mitral regurgitation Chronic hypoxemic respiratory failure, secondary to above Leukocytosis, improving Gram-negative urine tract infection, ESBL producing Klebsiella pneumoniae with a mildly abnormal UA. Could be colonization versus true infection. Currently on Invanz Methicillin resistant Staphylococcus aureus in the blood cultures Currently on vancomycin. Acute kidney injury, creatinine is stable and improved compared to yesterday Benign essential hypertension History of hyperlipidemia Diabetes mellitus type 2 History of fall with right hip fracture and recent complicated hospital stay at outside facility ECF resident Plan: The patient was seen and evaluated Chest x-ray, medications and labs reviewed CT scan of the lumbar spine reviewed Remains on ertapenem and vancomycin Currently stable and on room air Increase her activity as tolerated We will continue to follow I have personally seen and examined the patient, performed the documentation and the assessment and plan as written. Number of minutes spent on the visit: 10.
[2023-12-01 15:00] VITALS: BMI 24.7
[2023-12-01 16:22] LABS: Glucose,Whole Blood 350 mg/dL (70-110)
--- NOTE | 2023-12-01 21:16 | PN ---
PROGRESS NOTE DATE OF SERVICE: 12/01/2023 SUBJECTIVE: This is an 88-year-old woman who was admitted with acute multifocal pneumonia and acute on chronic hypoxic respiratory failure, had CHF also. The patient is being closely monitored at this time. ECF rehab is also being planned. Lumbar spine CT scan has been done, which showed L1 compression fracture and severe DJD. PAST MEDICAL HISTORY: Reviewed. REVIEW OF SYSTEMS: A 14-point review is negative except as mentioned earlier. CURRENT MEDICATIONS: Reviewed. PHYSICAL EXAMINATION: VITAL SIGNS: Pulse is 63, blood pressure 130/70, respirations 18. CHEST: Few scattered rhonchi and crackles. ABDOMEN: Soft. NERVOUS SYSTEM: Nonfocal. LABORATORY DATA: WBC 10.9, other labs are noted. ASSESSMENT: 1. Acute multifocal pneumonia with acute on chronic hypoxic respiratory failure. 2. Chronic diastolic CHF. 3. Acute renal injury. 4. UTI. 5. Elevated WBC. 6. Painful bleeding from the left ear secondary to excoriation trauma. 7. MRSA from the blood and Klebsiella pneumonia from the urine. 8. L1 compression fracture and severe DJD. 9. Gait dysfunction. RECOMMENDATIONS: Recommended to continue current management, continue symptomatic treatment, otherwise at this time I would recommend to repeat labs, continue antibiotics, continue rest of medications. The patient is on Invanz, PT OT evaluation, clinical social worker consult. Guarded prognosis. Further recommendations to follow. MMODL / IJN: [id number] /
[2023-12-01 21:23] LABS: Glucose,Whole Blood 370 mg/dL (70-110)
[2023-12-02 05:53] LABS: Glucose,Whole Blood 196 mg/dL (70-110)
[2023-12-02 06:17] LABS: African American GFR (CKD) 60 (>60 ml/min/1.73 sqM); Non-African American GFR(CKD) 52 (>60 ml/min/1.73 sqM)
--- NOTE | 2023-12-02 08:48 | P.CNOR ---
History of Present Illness - [facility] Consult date: 12/01/23 Requesting physician: Manoj Brunner Consult reason: other (L1 Osteo? abnormal CT) History of present illness: Patient is an 88-year-old female who presents emergency department [facility] on 11/26/2023 due to increasing shortness of breath and hyperglycemia. Patient resides at [facility]. Pulmonology, medicine, ICU following patient. Orthopedics consulted due to concern for osteomyelitis of L1 based on CT findings of lumbar spine. Patient seen at bedside this afternoon with an Aquacel silver dressing present over upper lumbar spine. Patient states in early July 2023 she had a fall at home and has had pain in the back since this fall. Patient says the pain seems to come and go, however, patient says she is able to manage to walk around using a walker. Patient says at baseline she does use a walker to ambulate. Patient denies any previous orthopedic spine surgery. Patient denies any numbness and tingling in lower extremities or any radiculopathy. Patient denies any issues with bowel or bladder control. Patient denies saddle anesthesia. So history is difficult to obtain due to the patient's clinical state. Patient denies chest pain, fever, shortness of breath, nausea, vomiting, change in vision, loss of/bladder control. Past Medical History Past Medical History: Heart Failure, Diabetes Mellitus, Hypertension, Pneumonia Additional Past Medical History / Comment(s): new CHF 09/2023, "kidney damage" History of Any Multi-Drug Resistant Organisms: MRSA Year Discovered:: 07/29/23 MDRO Source:: sepsis Past Surgical History: Hysterectomy Additional Past Surgical History / Comment(s): R hip, cataract sx Past Anesthesia/Blood Transfusion Reactions: No Reported Reaction Smoking Status: Never smoker Past Alcohol Use History: None Reported Past Drug Use History: None Reported Medications and Allergies Home Medications Medication Instructions Recorded Confirmed Type Ergocalciferol (Vitamin D2) 1,250 mcg PO APPIAH 10/08/23 11/26/23 History [Drisdol (50,000 Iu)] carvediloL [Coreg] 25 mg PO BID 10/08/23 11/26/23 History hydrALAZINE HCL [Apresoline] 50 mg PO TID@0800,1300,1800 10/08/23 11/26/23 History Potassium Chloride ER [K-Dur 20] 40 meq PO BID tab 10/19/23 11/26/23 Rx predniSONE [Deltasone] 20 mg PO DAILY #2 tab 10/19/23 11/26/23 Rx Albuterol Sulfate [Albuterol 2 puff INHALATION RT-Q6H 11/02/23 11/26/23 History Sulfate Hfa] Aspirin [Vazalore] 81 mg PO DAILY 11/02/23 11/26/23 History Atorvastatin [Lipitor] 20 mg PO DAILY 11/02/23 11/26/23 History NIFEdipine XL [Procardia XL] 60 mg PO DAILY 11/02/23 11/26/23 History Omeprazole 20 mg PO DAILY 11/02/23 11/26/23 History rOPINIRole HCL [Requip] 4 mg PO BID 11/02/23 11/26/23 History Collagenase [Santyl Ointment] 1 applic TOPICAL DAILY each 11/06/23 11/26/23 Rx DULoxetine HCL [Cymbalta] 60 mg PO BID 11/26/23 11/26/23 History Furosemide [Lasix] 40 mg PO BID@0800,1600 11/26/23 11/26/23 History Insulin Glargine-Yfgn 30 units SQ DAILY 11/26/23 11/26/23 History Insulin Lispro [Insulin Lispro See Protocol SQ AC-TID 11/26/23 11/26/23 History Kwikpen U-100] Ipratropium-Albuterol Nebulize 3 ml INHALATION DIRECTED 11/26/23 11/26/23 History [Duoneb 0.5 mg-3 mg/3 ml Soln] Allergies Allergy/AdvReac Type Severity Reaction Status Date / Time No Known Allergies Allergy Verified 11/26/23 14:40 Physical Examination Inspection: Large ulcerated wound present over lower thoracic and upper lumbar spine midline measuring about 8 cm in length by 3 cm in width. Negative for any changes. Positive for ecchymosis surrounding the wound. Sensation: Equal, symmetric, bilaterally intact throughout the upper and lower extremities. Palpation: Moderate TTP surrounding the wound. NTTP throughout rest of exam. Range of motion: full ROM throughout bilateral wrists and elbows in flexion/extension. Limited range of motion in shoulders and forward elevation, external/internal rotation and abduction. Limited range of motion in bilateral hips and flexion/extension secondary to stiffness and some referred pain in the low-back. full ROM in bilateral ankles and knees Motor: 4/5 in all major motor groups in bilateral upper extremities. 4-/5 in resisted left hip and right hip flexion/extension. 4/5 in resisted ankle dorsi/plantar flexion and knee flexion extension bilaterally. Neurovascular: Radial pulses intact, 2+ bilaterally. cap refill <3 sec in digits of UE Special tests: Negative Homans bilaterally. Negative clonus bilaterally. Negative Raffi. Results - Labs Labs: Abnormal Lab Results - Last 24 Hours (Table) 11/30/23 12/01/23 12/01/23 Range/Units 20:54 04:50 04:50 WBC 10.90 H (4.50-10.00) X 10*3/uL RBC 3.17 L (4.10-5.20) X 10*6/uL Hgb 9.5 L (12.0-15.0) g/dL Hct 30.4 L (37.2-46.3) % MCHC 31.3 L (32.0-37.0) g/dL RDW 15.5 H (11.5-14.5) % Immature Gran # 0.24 H (0.00-0.04) X 10*3/uL Neutrophils # 9.00 H (1.80-7.70) X 10*3/uL Lymphocytes # 0.54 L (0.90-5.00) X 10*3/uL ESR 80 H (0-30) mm/Hr Carbon Dioxide 33 H (22-30) mmol/L BUN 54 H (7-17) mg/dL Creatinine 1.05 H (0.52-1.04) mg/dL Glucose 245 H (74-99) mg/dL POC Glucose (mg/dL) 358 H (70-110) mg/dL C-Reactive Protein 4.8 H (<1.0) mg/dL 12/01/23 12/01/23 12/01/23 Range/Units 06:24 11:20 16:22 WBC (4.50-10.00) X 10*3/uL RBC (4.10-5.20) X 10*6/uL Hgb (12.0-15.0) g/dL Hct (37.2-46.3) % MCHC (32.0-37.0) g/dL RDW (11.5-14.5) % Immature Gran # (0.00-0.04) X 10*3/uL Neutrophils # (1.80-7.70) X 10*3/uL Lymphocytes # (0.90-5.00) X 10*3/uL ESR (0-30) mm/Hr Carbon Dioxide (22-30) mmol/L BUN (7-17) mg/dL Creatinine (0.52-1.04) mg/dL Glucose (74-99) mg/dL POC Glucose (mg/dL) 251 H 252 H 350 H (70-110) mg/dL C-Reactive Protein (<1.0) mg/dL Microbiology - Last 24 Hours (Table) 11/30/23 11:40 Gram Stain - Preliminary Back Wound Culture - Preliminary 11/30/23 09:32 Blood Culture - Preliminary Blood H & H 11/26/23 11/27/23 11/28/23 Range/Units 12:53 04:36 05:37 Hgb 9.5 L 9.1 L 10.5 L (11.4-16.0) gm/dL Hct 30.4 L 28.7 L 33.1 L (34.0-46.0) % 11/30/23 12/01/23 Range/Units 06:03 04:50 Hgb 10.0 L 9.5 L (11.4-16.0) gm/dL Hct 31.9 L 30.4 L (34.0-46.0) % Coagulation 11/26/23 Range/Units 12:53 INR 1.0 (<1.2) Result Diagrams: 12/01/23 04:50 12/02/23 05:08 - Diagnostic results CT Scan - lumbar: report reviewed, image reviewed (Computed tomography scan lumbar spine does reveal complete loss of L1 vertebral body height positive for moderate spinal canal stenosis at L1 as well as neural foraminal stenosis from L1 through L3) Assessment and Plan Assessment: 1. Low back pain; complete loss of L1 vertebral body; moderate lumbar canal stenosis; moderate lumbar spine neuroforaminal stenosis Plan: 1. Low back pain; complete loss of L1 vertebral body; moderate lumbar canal stenosis; moderate lumbar spine neuroforaminal stenosis - I did review the findings of the computed tomography scan lumbar spine with my attending, Dr. Bolivar. Computed tomography scan of lumbar spine does show vacuum disc at L1 with complete loss of body height at L1 and central canal and neuroforaminal stenosis. I did discuss the findings with the patient at bedside. At this time we are recommending MRI of L1 and the surrounding thoracic and lumbar spine for further evaluation. Due to injury leading to instability of spine patient does likely need surgical stabilization at L1 in the form of T11-L3 stabilization. Patient's nurse did discuss with patients daughter, who is power of property consultant, and POA does not want any further imaging of spine or spine surgery at this time. Recommending pain medication as needed for now. We will continue to discuss with patient and her POA treatment options for spine. 2. Appreciate medica, ID, pulmonology management 3. Pain management - [place] 4. DVT prophylaxis - aspirin 5. GI prophylaxis - protonix 6. PT/OT - WBAT w/walker and assistance 7. Encourage incentive spirometer use 8. Appreciate consult Time with Patient: Less than 30
[2023-12-02 11:24] LABS: Glucose,Whole Blood 108 mg/dL (70-110)
--- NOTE | 2023-12-02 12:10 | CDI ---
Documentation Clarification Form Date: 12/02/2023 11:40:37 AM From: Cary Murray RN, CCDS Phone: [phone] Admit Date: 11/26/2023 03:46:00 PM Patient Name: Sherry Bernabe Visit Number: [id number] Discharge Date: ATTENTION: The Clinical Documentation Specialists (CDI) and [facility] Coding Staff appreciate your assistance in clarifying documentation. Please respond to the clarification below the line at the bottom and electronically sign. The CDI & [facility] Coding staff will review the response and follow-up if needed. Please note: Queries are made part of the Legal Health Record. If you have any questions, please contact the author of this message via ITS. Dr. Elizabeth Newsome A medial back stage III pressure ulcer is documented by Nursing wound assessment on admission 11/26/23. [. Based on this information and the findings below, is there an additional diagnosis that is clinically appropriate for this patient? History/Risk Factors: Heart Failure, Diabetes Mellitus, Hypertension, Pneumonia Clinical Indicators: Orthopedic consult: Large ulcerated wound present over lower thoracic and upper lumbar spine midline measuring about 8 cm in length by 3 cm in width. Wound Margins: indistinct, Small amount of drainage. Slight odor Treatment: Dressing change per protocol Is there an additional diagnosis that is clinically appropriate for this patient? [ ] Medial Back Pressure Ulcer Stage 3, POA [ ] Other condition, please specify [ ] Unable to determine Clinical Definitions: Stage 1 Pressure Ulcer: intact skin, non-blanching redness of local area Stage 2 Pressure Ulcer: Partial thickness, loss of dermis, pink wound bed Stage 3 Pressure Ulcer: Full thickness tissue loss Stage 4 Pressure Ulcer: Full thickness tissue loss with exposed bone, tendon, or muscle. Unstageable pressure ulcer: Full thickness tissue loss in which the base of the ulcer is covered by slough (yellow, carl, pimentel, green or brown) and/or eschar (carl, brown or black) in the wound bed. (Template Last Revised: November 2020) Medial Back Pressure Ulcer Stage 3, POA MTDD
--- NOTE | 2023-12-02 12:49 | P.PN ---
Subjective Progress Note Date: 12/02/23 Principal diagnosis: Low back pain; complete loss of L1 vertebral body; moderate lumbar canal stenosis; moderate lumbar spine neuroforaminal stenosis Patient seen at bedside this morning lying in semirecumbent position eating breakfast. She says she is still having some back pain at this time, however is tolerable with medication. Patient says she is looking forward to working with therapy today. Patient says she will discuss possible MRi and surgical intervention for spine today. Patient denies any other changes at this time. Objective - Vital Signs Vital signs: Vital Signs Temp 97.6 F 12/02/23 08:00 Pulse 71 12/02/23 08:00 Resp 16 12/02/23 08:35 BP 139/75 12/02/23 08:00 Pulse Ox 95 12/02/23 08:00 FiO2 Intake & Output 12/01/23 12/02/23 12/02/23 18:59 06:59 18:59 Output Total 650 Balance -650 Weight 63.5 kg 64 kg Output: Urine 650 Other: Voiding Method Diaper Diaper Diaper External Catheter External Catheter External Catheter # Voids 4 # Bowel Movements 2 - Exam Inspection: Large ulcerated wound present over lower thoracic and upper lumbar spine midline measuring about 8 cm in length by 3 cm in width. Negative for any changes. Positive for ecchymosis surrounding the wound. Sensation: Equal, symmetric, bilaterally intact throughout the upper and lower extremities. Palpation: Moderate TTP surrounding the wound. NTTP throughout rest of exam. Range of motion: full ROM throughout bilateral wrists and elbows in flexion/extension. Limited range of motion in shoulders and forward elevation, external/internal rotation and abduction. Limited range of motion in bilateral hips and flexion/extension secondary to stiffness and some referred pain in the low-back. full ROM in bilateral ankles and knees Motor: 4/5 in all major motor groups in bilateral upper extremities. 4-/5 in resisted left hip and right hip flexion/extension. 4/5 in resisted ankle dorsi/plantar flexion and knee flexion extension bilaterally. Neurovascular: Radial pulses intact, 2+ bilaterally. cap refill <3 sec in digits of UE Special tests: Negative Homans bilaterally. Negative clonus bilaterally. Negative Raffi. - Labs CBC & Chem 7: 12/01/23 04:50 12/02/23 05:08 Labs: Abnormal Lab Results - Last 24 Hours (Table) 12/01/23 12/01/23 12/02/23 Range/Units 16:22 21:22 05:52 POC Glucose (mg/dL) 350 H 370 H 196 H (70-110) mg/dL Microbiology - Last 24 Hours (Table) 11/26/23 17:15 Blood Culture - Final Blood 11/30/23 11:40 Gram Stain - Preliminary Back Wound Culture - Preliminary 11/30/23 09:32 Blood Culture - Preliminary Blood Assessment and Plan Assessment: 1. Low back pain; complete loss of L1 vertebral body; moderate lumbar canal stenosis; moderate lumbar spine neuroforaminal stenosis Plan: 1. Low back pain; complete loss of L1 vertebral body; moderate lumbar canal sten osis; moderate lumbar spine neuroforaminal stenosis - I did review the findings of the computed tomography scan lumbar spine with my attending, Dr. Bolivar. Computed tomography scan of lumbar spine does show vacuum disc at L1 with complete loss of body height at L1 and central canal and neuroforaminal stenosis. I did discuss over phone the findings of CT Lumbar spine with patient's power of collections attorney, daughter, Ying. Ying is agreeable at this time to move forward with MRI of thoracic and lumbar spine and will await findings from MRI's and discuss with patient and family before any potential orthopedic intervention. MRI thoracic and lumbar spine ordered. Due to injury leading to instability of spine patient does likely need surgical stabilization at L1 in the form of T11-L3 stabilization. Surgery for T11-L3 stabilization for L1 fracture scheduled for tomorrow pending MRI and family decision. Nothing by mouth at midnight tonight. Discontinue blood thinners. We'll continue to follow patient during stay in hospital. 2. Appreciate medical, ID, pulmonology management 3. Pain management - [place] 4. DVT prophylaxis - discontinue thinners 5. GI prophylaxis - protonix 6. PT/OT - WBAT w/walker and assistance 7. Encourage incentive spirometer use Time with Patient: Less than 30
[2023-12-02] MEDS: ACETAMINOPHEN TAB 325 MG TAB PO PRN (13:32)
[2023-12-02 13:43] LABS: Glucose,Whole Blood 170 mg/dL (70-110)
--- NOTE | 2023-12-02 13:46 | P.PN ---
Subjective Progress Note Date: 12/02/23 Heart failure The patient is a pleasant 88-year-old female patient with a past medical history significant for heart failure with preserved ejection fraction and valvular heart disease with mitral regurgitation as well as multiple comorbid conditions who was admitted to the hospital with acute hypoxic respiratory failure felt to be related to pneumonia and a component of heart failure. She was started on Lasix IV. November 28, 2023 She was seen and evaluated this morning. She is feeling slightly better in terms of the shortness of breath but she continues to be on oxygen. No pain in the chest. Blood work continues to be stable. From a cardiovascular standpoint of view, we will continue the current medical regimen and follow-up with her. The examination showed significant systolic murmur at the apical area with clear breathing sounds bilaterally and mild bilateral lower extremity edema November 29, 2023 The patient was seen this afternoon. She is feeling better. The shortness of breath has improved. She continues to have bilateral lower extremities edema. The blood work from this morning showed stable creatinine with that being said I am going to continue the current dose of Lasix IV and continue monitor the kidney function and electrolytes and follow-up with the patient. The exam ination is remarkable for systolic murmur at the apical area with clear breathing sounds bilaterally and bilateral lower extremities edema 3/4 Patient states that she is feeling better with less shortness of breath. Blood pressure 119/69, heart rate in the 60s and 70s, pulse ox 98% on 4 L. Repeat blood work reveals WBC 10.1, hemoglobin 10, platelet count 202. Electrolytes are normal. BUN 48 creatinine 1.1. Glucose 35. C-reactive protein 5.7. Procalcitonin 0.14. Patient has been on IV Lasix 40 mg every 12 hours and also on IV antibiotics. She has a negative fluid balance yesterday of 1020. Weight is down 1 kg. Patient has a positive blood culture with presumptive MRSA in the urine culture with Klebsiella followed by infectious disease. Will add in a repeat blood culture. The examination is remarkable for systolic murmur at the apical area with clear breathing sounds bilaterally and minimal bilateral lower extremities edema. 3/5 Yesterday, IV Lasix was transition to oral 40 mg twice daily. Repeat blood culture was ordered. Blood pressure 151/73, heart rate 73, pulse ox 91% on room air. Repeat blood work reveals WBC 10.9, hemoglobin 9.5. Sodium 138, potassium 4.1, BUN 54 creatinine 1.05. TSH 3.17. Chest x-ray from yesterday afternoon reviewed much improved aeration about the perihilar regions with residual perihilar infiltrate and pulmonary venous congestion. Patient is followed by infectious disease.The examination is remarkable for systolic murmur at the apical area with clear breathing sounds bilaterally and minimal bilateral lower extremities edema. 12/01 Patient has no shortness of breath, no cough. Repeat blood cultures obtained on 11/29 are showing no growth. ID is following and workup for lumbar spine source of bacteremia is being done and orthopedic spine is on the case. Blood pressure 139/75, heart rate 71, pulse ox 95% on room air. Physical Examination Gen: This is a frail-appearing 88-year-old female in no acute distress HEENT: Head is atraumatic, normocephalic. Pupils equal, round. Sclerae is anicteric. LUNGS: Clear to auscultation. No wheezes or rhonchi. No intercostal retractions. HEART: Regular rate and rhythm. Systolic murmur. EXTREMITIES: No pedal edema. No calf tenderness. NEUROLOGICAL: Patient is awake, alert. Assessment Heart failure with preserved ejection fraction Severe mitral regurgitation Hypertension Dyslipidemia Multiple comorbid conditions MRSA bacteremia UTI Plan Continue current cardiac medications Continue monitor the kidney function and electrolytes Continue Lasix oral 40 mg twice daily Monitor for need for BRANDON Follow-up with the patient Nurse practitioner note has been reviewed, I agree with documented findings and plan of care. Patient was seen and examined. Objective - Vital Signs Vital signs: Vital Signs Temp 97.6 F 12/02/23 08:00 Pulse 71 12/02/23 08:00 Resp 16 12/02/23 08:35 BP 139/75 12/02/23 08:00 Pulse Ox 95 12/02/23 08:00 FiO2 Intake & Output 12/01/23 12/02/23 12/02/23 18:59 06:59 18:59 Output Total 650 Balance -650 Weight 63.5 kg 64 kg Output: Urine 650 Other: Voiding Method Diaper Diaper Diaper External Catheter External Catheter External Catheter # Voids 4 # Bowel Movements 2 - Labs CBC & Chem 7: 12/01/23 04:50 12/02/23 05:08 Labs: Abnormal Lab Results - Last 24 Hours (Table) 12/01/23 12/01/23 12/02/23 Range/Units 16:22 21:22 05:52 POC Glucose (mg/dL) 350 H 370 H 196 H (70-110) mg/dL Microbiology - Last 24 Hours (Table) 11/26/23 17:15 Blood Culture - Final Blood 11/30/23 11:40 Gram Stain - Preliminary Back Wound Culture - Preliminary 11/30/23 09:32 Blood Culture - Preliminary Blood
--- NOTE | 2023-12-02 13:50 | P.PN ---
Subjective Progress Note Date: 12/02/23 I am seeing this patient in consultation today 11/27/2023 after she was sent from her local ECF after being noted to be short of breath and hypoxic. Patient is a 88-year-old white female with past medical history significant for congestive heart failure, chronic hypoxemic respiratory failure on 2 L O2 at baseline, diabetes mellitus, hypertension, hyperlipidemia, and recent right- sided hip fracture with prolonged hospitalization at outside facility. She resides at [facility]. She had a recent hospitalization at our facility in September of this year for congestive heart failure. Echocardiogram done 10/09/2023 showed a preserved left ventricular ejection fraction, moderate mitral regurgitation, moderate to severe tricuspid regurgitation, and severe pulmonary hypertension. There was a repeat hospital admission earlier in October of this year for similar symptoms. She was incidentally noted to be influenza A positive. She was discharged back to her ECF 11/06/2023. She has been taking Lasix 40 mg twice daily. She has completed her course of Tamiflu. Patient returns after progressively worsening dyspnea while at [facility]. She was noted to be hypoxic on her chronic 2 L/min nasal cannula. She was brought in by EMS yesterday afternoon. Patient is currently resting in bed, on 4 L/min nasal cannula, in no acute distress. She does have worsening lower extremity edema. Denies any chest pain, heart palpitations, lightheadedness, orthopnea, PND. Denies any fevers, chills, cough, hemoptysis. Chest x-ray done on arrival appears to show diffuse pulmonary edema and mild cardiomegaly. Superimposed multifocal pneumonia could be within the differential. CBC does show leukocytosis with a WBC count of 22.4, hemoglobin 9.5, hematocrit 30.4, platelets 157. BMP on arrival: Sodium 135, potassium 5.3, chloride 106, serum bicarb 23, BUN 60, creatinine 1.23, glucose 531. Lactic 1.4. Troponin less than 0.012. NT proBNP 3100. Procalcitonin 0.35. Urinalysis shows small leukocyte esterase and pyuria. Negative for influenza, RSV, COVID. Patient is empirically covered on azithromycin and Rocephin. Vital signs are stable. On today's evaluation of 11/28/2023, the patient is being seen for a follow-up. Slightly improved compared to yesterday and the patient is currently on 40 Suboxone by nasal cannula with a pulse ox of 97%. Responding to the diuretics and the patient is currently in negative fluid balance. The white cell count is 16.8 with a hemoglobin of 10.5 and a platelet count of 179. The rest of the blood work and electrolytes are stable. Creatinine is up to 1.3 with a BUN of 45 and a sodium levels at 142. Potassium level needs to be replaced at 2.9. The patient remains on IV Rocephin. The patient is also on IV Lasix 40 mg every 12 hours. There is a single blood culture that showed gram-positive cocci in clusters, likely contaminant. This is 1 out of 2 bottles. Urine culture is showing gram-negative bacillus. Overall condition is stable. Hemodynamically stable. No hypotension. No fever. No significant tachycardia. On today's evaluation of 11/28/2023, the patient is feeling well. Less short of breath compared to yesterday. CHF is being optimized. The patient is still being diuresed with IV Lasix 40 mg every 12 hours. Fluid balance is -1 L over the past 24 hours. Renal function is stable with a BUN of 16 and creatinine 1.2 and a sodium levels at 140. Potassium level is at 3.6. The patient is currently on 4 L of O2 nasal cannula with a pulse ox of 98% and the oxygenation is stable and this can be gradually weaned off. The patient is responding nicely to diuretics. No clear indication for pneumonia. Nevertheless, the blood culture was presumptive MRSA in the urine culture was also positive for ESBL producing E. coli. The patient's UA showed small significant abnormalities. Procalcitonin level is at 0.26. Current antibiotic coverage includes Rocephin and vancomycin. The patient is seen today November 30, 2023 in follow-up on the regular medical floor. She is currently resting comfortably in bed. Awake and alert in no acute distress. She is maintaining good O2 saturations in the upper 90s on 4 L/min per nasal cannula. Urine culture was positive for Klebsiella pneumoniae. Blood cultures are positive for MRSA. White count 10.1. Hemoglobin 10.0. Platelets 202. Sodium 144. Potassium 3.5. Bicarb 32. BUN 48. Creatinine 1.1. C-reactive protein 5.7. Procalcitonin 0.14. She is continued on DuoNeb inhalations, antibiotics in the form of ertapenem and vancomycin. Remains on oral diuretics. The patient is seen today December 01, 2023 in follow-up on the regular medical floor. She is sitting up at the bedside. Feeling a bit better today compared to yesterday. She is maintaining O2 saturations in the 90s on room air. Urine culture was positive for Klebsiella pneumoniae. Blood culture was positive for MRSA. White count 10.9. Hemoglobin 9.5. Platelets 211. Sodium 138. P otassium 4.1. Bicarb 33. BUN 54. Creatinine 1.05. Glucose 245. Chest x-ray revealed much improved aeration about the perihilar regions and residual perihilar infiltrate and pulmonary venous congestion. CT of the lumbar spine revealed complete loss of vertebral body height of L1 vertebrae. Superimposed infection is not excluded. No subcutaneous organizing fluid collection. Degenerative changes noted. He is continued on ertapenem and vancomycin. Remains on bronchodilators. Remains on diuretics. The patient is seen today December 02, 2023 in follow-up on the regular medical floor. She is currently resting comfortably in bed. Awake and alert in no acute distress. Maintaining good O2 saturations in the mid 90s on room air. She has been afebrile. Hemodynamically stable. Blood cultures were positive for MRSA. Urine culture was positive for Klebsiella pneumoniae. She is continued on vancomycin and Invanz. Follow-up blood culture revealing no growth thus far. Glucose 196. Creatinine 0.98. She is continued on DuoNeb ventilations. Transition to oral diuretics. No accurate I & O. Objective - Vital Signs Vital signs: Vital Signs Temp 97.6 F 12/02/23 08:00 Pulse 71 12/02/23 08:00 Resp 16 12/02/23 08:35 BP 139/75 12/02/23 08:00 Pulse Ox 95 12/02/23 08:00 FiO2 Intake & Output 12/01/23 12/02/23 12/02/23 18:59 06:59 18:59 Intake Total 300 Output Total 650 Balance -650 300 Weight 63.5 kg 64 kg Intake: Oral 300 Output: Urine 650 Other: Voiding Method Diaper Diaper Diaper External Catheter External Catheter External Catheter # Voids 4 # Bowel Movements 2 - Exam GENERAL EXAM: Alert, 88-year-old female, resting comfortably in bed, on room air, in no apparent distress. HEAD: Normocephalic and atraumatic EYES: Normal reaction of pupils, equal size. NOSE: Clear with pink turbinates. THROAT: No erythema or exudates. NECK: No masses, no JVD. CHEST: No chest wall deformity. LUNGS: Equal air entry with bibasilar crackles. No wheeze, rhonchi or focal dullness. No conversational dyspnea. CVS: S1 and S2 normal with soft grade 1/6 systolic murmur, regular rhythm. No other extra heart sounds ABDOMEN: No hepatosplenomegaly, active bowel sounds, no guarding or rigidity. SPINE: No scoliosis or deformity SKIN: No rashes CENTRAL NERVOUS SYSTEM: No focal deficits, tone is normal in all 4 extremities. EXTREMITIES: There is 2+ bilateral lower extremity pitting edema. Clubbing, or cyanosis. Peripheral pulses are intact. - Labs CBC & Chem 7: 12/01/23 04:50 12/02/23 05:08 Labs: Abnormal Lab Results - Last 24 Hours (Table) 12/01/23 12/01/23 12/02/23 Range/Units 16:22 21:22 05:52 POC Glucose (mg/dL) 350 H 370 H 196 H (70-110) mg/dL 12/02/23 Range/Units 13:41 POC Glucose (mg/dL) 170 H (70-110) mg/dL Microbiology - Last 24 Hours (Table) 12/01/23 04:50 Blood Culture - Preliminary Blood 11/26/23 17:15 Blood Culture - Final Blood 11/30/23 11:40 Gram Stain - Preliminary Back Wound Culture - Preliminary 11/30/23 09:32 Blood Culture - Preliminary Blood Assessment and Plan Assessment: Acute on chronic hypoxemic respiratory failure, likely secondary to exacerbation of diastolic congestive heart failure, and superimposed pneumonia is felt to be less likely. Chest x-ray initially showed diffuse patchy fluffy infiltrates and mild cardiomegaly concerning for pulmonary edema and/or multifocal pneumonia is within the differential. NT proBNP was elevated at 3100. The patient responding nicely to diuretics. Currently on room air and follow-up chest x-ray shows significant improvement. Chronic diastolic heart failure and valvular heart disease with moderate to severe mitral regurgitation and severe tricuspid regurgitation with secondary pulmonary hypertension. Left ventricular ejection fraction was estimated at 55 to 60% on most recent echocardiogram. Severe mitral regurgitation Chronic hypoxemic respiratory failure, secondary to above Leukocytosis, improving Gram-negative urine tract infection, ESBL producing Klebsiella pneumoniae with a mildly abnormal UA. Could be colonization versus true infection. Currently on Invanz Methicillin resistant Staphylococcus aureus in the blood cultures Currently on vancomycin. Acute kidney injury, creatinine is stable and improved compared to yesterday Benign essential hypertension History of hyperlipidemia Diabetes mellitus type 2 History of fall with right hip fracture and recent complicated hospital stay at outside facility ECF resident Plan: The patient was seen and evaluated Medications and labs reviewed Remains on ertapenem and vancomycin Continued on oral diuretics Currently stable and on room air Increase her activity as tolerated We will continue to follow I have personally seen and examined the patient, performed the documentation and the assessment and plan as written. Number of minutes spent on the visit: 10.
[2023-12-02 16:53] LABS: Glucose,Whole Blood 190 mg/dL (70-110)
[2023-12-02] MEDS: VANCOMYCIN TROUGH DUE 1 EACH MISC MISCELLANE ONE (16:58)
[2023-12-02 19:39] LABS: Glucose,Whole Blood 272 mg/dL (70-110)
--- NOTE | 2023-12-03 03:11 | PN ---
PROGRESS NOTE DATE OF SERVICE: 12/02/2023 SUBJECTIVE: This is an 88-year-old woman, who was admitted with acute multifocal pneumonia with CHF is being closely monitored. No chest pain. No palpitations. No fever. OBJECTIVE: VITAL SIGNS: Pulse is 71, blood pressure 130/74, respirations 16. CHEST: A few scattered rhonchi and crackles. ABDOMEN: Soft. NERVOUS SYSTEM: Nonfocal. LABORATORY DATA: Reviewed. ASSESSMENT: 1. Acute multifocal pneumonia with acute on chronic hypoxic respiratory failure. 2. Chronic diastolic congestive heart failure. 3. Acute renal injury. 4. Urinary tract infection. 5. Elevated WBC. 6. Painful bleeding from the left ear secondary to excoriation trauma. 7. Methicillin-resistant Staphylococcus aureus from the blood and Klebsiella pneumonia from the urine. 8. L1 compression fracture and severe degenerative joint disease. 9. Gait dysfunction. RECOMMENDATIONS AND DISCUSSION: I recommend to continue current management and continue symptomatic treatment, otherwise continue with antibiotics. The patient is on ertapenem. The patient's family would like to go home rather than ECF at this time. Prognosis guarded. Further recommendations to follow. MMODL / IJN: [id number] /
[2023-12-03 06:05] LABS: Glucose,Whole Blood 125 mg/dL (70-110)
[2023-12-03 07:19] LABS: African American GFR (CKD) 59 (>60 ml/min/1.73 sqM); Anion Gap 2 mmol/L; Blood Urea Nitrogen 77 mg/dL (7-17); Calcium 8.6 mg/dL (8.4-10.2); Carbon Dioxide 30 mmol/L (22-30); Chloride 109 mmol/L (98-107); Glucose 105 mg/dL (74-99); Non-African American GFR(CKD) 51 (>60 ml/min/1.73 sqM); Sodium 141 mmol/L (137-145)
--- NOTE | 2023-12-03 07:25 | P.PN ---
Progress Note - Text Progress Note Date: 12/03/23 Images reviewed. MRI pending. CT shows L1 pathological fracture vs infection with subsequent erotion of L1 with severe kyphotic deformity, stenosis and spondylosis related. This is an unstable area and needs to be stabilized. There is potential for further break down, deformity and further quality of life deterioration. There is ulcerated wound on the back due to pressure from the severe kyphosis noted. This would require stabilization from T11-L3. Daughter had expressed to nursing that they did not want anything else done on the patient, but then maybe that they did? We are trying to clarify. If nothing is to be done, would recommend hospice. Otherwise, pt is on schedule today for surgery, which I do recommend for stabilization purposes, quality of life and to prevent further breakdown. As well, if this is infection based, it needs to be evacuated. MRI would help to determine this, howevere if surgery is to be done we can also culture and biopsy the area at the time of surgery.
--- NOTE | 2023-12-03 07:57 | XR ---
EXAMINATION TYPE: XR chest 1V portable DATE OF EXAM: 12/03/2023 HISTORY: Shortness of breath. COMPARISON: 11/29/2022 TECHNIQUE: Single view of the chest is submitted. FINDINGS: Demonstrated are scattered senescent parenchymal change. Scattered mixed interstitial and alveolar type infiltrates persist without significant interval brennan e. The heart is stable. Hilar and mediastinal structures are within normal limits. Degenerative changes are seen of the dorsal spine. IMPRESSION: 1. Scattered mixed interstitial and alveolar type infiltrates persist without significant interval c hange.
[2023-12-03 08:11] LABS: Potassium 6.1 mmol/L (3.5-5.1)
[2023-12-03 10:54] LABS: Basophils # (A) 0.05 X 10*3/uL (0.00-0.10); Basophils % (A) 0.5 %; Eosinophils # (A) 0.18 X 10*3/uL (0.04-0.35); Eosinophils % (A) 1.9 %; HCT 32.2 % (37.2-46.3); HGB 10.1 g/dL (12.0-15.0); Lymphocytes # (A) 0.82 X 10*3/uL (0.90-5.00); Lymphocytes % (A) 8.5 %; MCH 29.8 pg (27.0-32.0); MCHC 31.4 g/dL (32.0-37.0); Mean Platelet Volume 11.5 FL (9.5-12.2); Monocytes # (A) 0.69 X 10*3/uL (0.20-1.00); Monocytes % (A) 7.2 %; NRBC Per 100 WBC 0.02 X 10*3/uL (0.00-0.01); Neutrophils # (A) 7.61 X 10*3/uL (1.80-7.70); Neutrophils % (A) 79.1 %; Platelet Count 256 X 10*3/uL (140-440); RBC 3.39 X 10*6/uL (4.10-5.20); RDW 15.9 % (11.5-14.5); WBC 9.62 X 10*3/uL (4.50-10.00)
[2023-12-03 11:18] LABS: Glucose,Whole Blood 158 mg/dL (70-110)
--- NOTE | 2023-12-03 11:27 | P.PN ---
Subjective Progress Note Date: 12/03/23 Heart failure The patient is a pleasant 88-year-old female patient with a past medical history significant for heart failure with preserved ejection fraction and valvular heart disease with mitral regurgitation as well as multiple comorbid conditions who was admitted to the hospital with acute hypoxic respiratory failure felt to be related to pneumonia and a component of heart failure. She was started on Lasix IV. November 28, 2023 She was seen and evaluated this morning. She is feeling slightly better in terms of the shortness of breath but she continues to be on oxygen. No pain in the chest. Blood work continues to be stable. From a cardiovascular standpoint of view, we will continue the current medical regimen and follow-up with her. The examination showed significant systolic murmur at the apical area with clear breathing sounds bilaterally and mild bilateral lower extremity edema November 29, 2023 The patient was seen this afternoon. She is feeling better. The shortness of breath has improved. She continues to have bilateral lower extremities edema. The blood work from this morning showed stable creatinine with that being said I am going to continue the current dose of Lasix IV and continue monitor the kidney function and electrolytes and follow-up with the patient. The exam ination is remarkable for systolic murmur at the apical area with clear breathing sounds bilaterally and bilateral lower extremities edema 3/4 Patient states that she is feeling better with less shortness of breath. Blood pressure 119/69, heart rate in the 60s and 70s, pulse ox 98% on 4 L. Repeat blood work reveals WBC 10.1, hemoglobin 10, platelet count 202. Electrolytes are normal. BUN 48 creatinine 1.1. Glucose 35. C-reactive protein 5.7. Procalcitonin 0.14. Patient has been on IV Lasix 40 mg every 12 hours and also on IV antibiotics. She has a negative fluid balance yesterday of 1020. Weight is down 1 kg. Patient has a positive blood culture with presumptive MRSA in the urine culture with Klebsiella followed by infectious disease. Will add in a repeat blood culture. The examination is remarkable for systolic murmur at the apical area with clear breathing sounds bilaterally and minimal bilateral lower extremities edema. 3/5 Yesterday, IV Lasix was transition to oral 40 mg twice daily. Repeat blood culture was ordered. Blood pressure 151/73, heart rate 73, pulse ox 91% on room air. Repeat blood work reveals WBC 10.9, hemoglobin 9.5. Sodium 138, potassium 4.1, BUN 54 creatinine 1.05. TSH 3.17. Chest x-ray from yesterday afternoon reviewed much improved aeration about the perihilar regions with residual perihilar infiltrate and pulmonary venous congestion. Patient is followed by infectious disease.The examination is remarkable for systolic murmur at the apical area with clear breathing sounds bilaterally and minimal bilateral lower extremities edema. 12/01 Patient has no shortness of breath, no cough. Repeat blood cultures obtained on 11/29 are showing no growth. ID is following and workup for lumbar spine source of bacteremia is being done and orthopedic spine is on the case. Blood pressure 139/75, heart rate 71, pulse ox 95% on room air. 12/02 Patient had positive blood culture for MRSA 09/29 on admission. Repeat blood cultures have been negative. She has been afebrile, heart rate in the 60s and 70s, blood pressure 129/65, pulse ox 95% on room air. Breathing status is stable. She denies having any chest pain. ID is following for bacteremia and UTI. Physical Examination Gen: This is a frail-appearing 88-year-old female in no acute distress HEENT: Head is atraumatic, normocephalic. Pupils equal, round. Sclerae is anicteric. LUNGS: Clear to auscultation. No wheezes or rhonchi. No intercostal retractions. HEART: Regular rate and rhythm. Systolic murmur. EXTREMITIES: No pedal edema. No calf tenderness. NEUROLOGICAL: Patient is awake, alert. Assessment Heart failure with preserved ejection fraction Severe mitral regurgitation Hypertension Dyslipidemia Multiple comorbid conditions MRSA bacteremia UTI Plan Continue current cardiac medications Continue monitor the kidney function and electrolytes Continue Lasix oral 40 mg twice daily No plan for [facility] will sign off this case and follow on an as-needed basis. Please reconsult for any new concerns. Patient may follow-up in the office in one to 2 weeks. Nurse practitioner note has been reviewed, I agree with documented findings and plan of care. Patient was seen and examined. Objective - Vital Signs Vital signs: Vital Signs Temp 98.0 F 12/03/23 07:45 Pulse 77 12/03/23 08:52 Resp 17 12/03/23 08:00 BP 129/65 12/03/23 07:45 Pulse Ox 95 12/03/23 07:45 FiO2 Intake & Output 03/06/24 03/07/24 03/07/24 18:59 06:59 18:59 Intake Total 500 0 100 Output Total 900 500 500 Balance -400 -500 -400 Weight 64 kg Intake: Oral 500 0 100 Output: Urine 900 500 500 Other: Voiding Method Diaper Diaper Diaper External Catheter External Catheter External Catheter # Voids 4 - Labs CBC & Chem 7: 12/03/23 06:49 12/03/23 10:29 Labs: Abnormal Lab Results - Last 24 Hours (Table) 12/02/23 12/02/23 12/02/23 Range/Units 13:41 16:51 19:37 RBC (4.10-5.20) X 10*6/uL Hgb (12.0-15.0) g/dL Hct (37.2-46.3) % MCHC (32.0-37.0) g/dL RDW (11.5-14.5) % Immature Gran # (0.00-0.04) X 10*3/uL Lymphocytes # (0.90-5.00) X 10*3/uL NRBC/100 WBC Diff (0.00-0.01) X 10*3/uL Potassium (3.5-5.1) mmol/L Chloride (98-107) mmol/L BUN (7-17) mg/dL Glucose (74-99) mg/dL POC Glucose (mg/dL) 170 H 190 H 272 H (70-110) mg/dL 12/03/23 12/03/23 12/03/23 Range/Units 06:01 06:49 06:49 RBC 3.39 L (4.10-5.20) X 10*6/uL Hgb 10.1 L (12.0-15.0) g/dL Hct 32.2 L (37.2-46.3) % MCHC 31.4 L (32.0-37.0) g/dL RDW 15.9 H (11.5-14.5) % Immature Gran # 0.27 H (0.00-0.04) X 10*3/uL Lymphocytes # 0.82 L (0.90-5.00) X 10*3/uL NRBC/100 WBC Diff 0.02 H (0.00-0.01) X 10*3/uL Potassium 6.1 H* (3.5-5.1) mmol/L Chloride 109 H (98-107) mmol/L BUN 77 H (7-17) mg/dL Glucose 105 H (74-99) mg/dL POC Glucose (mg/dL) 125 H (70-110) mg/dL Microbiology - Last 24 Hours (Table) 11/30/23 11:40 Gram Stain - Final Back Wound Culture - Final 11/30/23 09:32 Blood Culture - Preliminary Blood 12/01/23 04:50 Blood Culture - Preliminary Blood
--- NOTE | 2023-12-03 12:37 | P.CONS ---
History of Present Illness - Reason for Consult Consult date: 12/03/23 wound care - History of Present Illness This is an 88-year-old the patient being seen on 4 S. for a nonhealing ulceration to the posterior back. Patient states that the ulceration has been there since July she has been treated with silver products. The resulting ulceration started from a fall. At this time the ulceration measures approximately 2.5 x 1 x 0.1 cm with significant amount of slough and minimal to no granulation noted within the wound bed the wound edges are attached to the wound base there is no tunneling or undermining noted to the site. The periwound does show excoriation. Review Of Systems: Constitutional: No fever, no chills, no night sweats. No weight change. No weakness, fatigue or lethargy. No daytime sleepiness. Integumentary:reports wounds, no lesions. No rash or pruritus. No unusual bruising. No change in hair or nails. Physical exam: General Appearance: Alert, cooperative, no distress, appears stated age. Skin: See HPI all other Skin color, texture, tugor normal, no rashes or lesions. Neurologic: Alert oriented x3 Assessment: 1. Stage II pressure ulcer midline back 2. Diabetes with skin ulceration Plan: 1. Apply honey gel and bordered foam change Thursday. Patient would benefit from advanced wound care and wound care center we be happy to see her upon discharge Thank you for the consultation any questions please contact the wound care cent er DNP note has been reviewed and discussed with Dr. Barone and the impression and plan of care has been directed as dictated. Past Medical History Past Medical History: Heart Failure, Diabetes Mellitus, Hypertension, Pneumonia Additional Past Medical History / Comment(s): new CHF 09/2023, "kidney damage" History of Any Multi-Drug Resistant Organisms: MRSA Year Discovered:: 07/29/23 MDRO Source:: sepsis Past Surgical History: Hysterectomy Additional Past Surgical History / Comment(s): R hip, cataract sx Past Anesthesia/Blood Transfusion Reactions: No Reported Reaction Smoking Status: Never smoker Past Alcohol Use History: None Reported Past Drug Use History: None Reported Medications and Allergies Home Medications Medication Instructions Recorded Confirmed Type Ergocalciferol (Vitamin D2) 1,250 mcg PO APPIAH 10/08/23 11/26/23 History [Drisdol (50,000 Iu)] carvediloL [Coreg] 25 mg PO BID 10/08/23 11/26/23 History hydrALAZINE HCL [Apresoline] 50 mg PO TID@0800,1300,1800 10/08/23 11/26/23 History Potassium Chloride ER [K-Dur 20] 40 meq PO BID tab 10/19/23 11/26/23 Rx predniSONE [Deltasone] 20 mg PO DAILY #2 tab 10/19/23 11/26/23 Rx Albuterol Sulfate [Albuterol 2 puff INHALATION RT-Q6H 11/02/23 11/26/23 History Sulfate Hfa] Aspirin [Vazalore] 81 mg PO DAILY 11/02/23 11/26/23 History Atorvastatin [Lipitor] 20 mg PO DAILY 11/02/23 11/26/23 History NIFEdipine XL [Procardia XL] 60 mg PO DAILY 11/02/23 11/26/23 History Omeprazole 20 mg PO DAILY 11/02/23 11/26/23 History rOPINIRole HCL [Requip] 4 mg PO BID 11/02/23 11/26/23 History Collagenase [Santyl Ointment] 1 applic TOPICAL DAILY each 11/06/23 11/26/23 Rx DULoxetine HCL [Cymbalta] 60 mg PO BID 11/26/23 11/26/23 History Furosemide [Lasix] 40 mg PO BID@0800,1600 11/26/23 11/26/23 History Insulin Glargine-Yfgn 30 units SQ DAILY 11/26/23 11/26/23 History Insulin Lispro [Insulin Lispro See Protocol SQ AC-TID 11/26/23 11/26/23 History Kwikpen U-100] Ipratropium-Albuterol Nebulize 3 ml INHALATION DIRECTED 11/26/23 11/26/23 History [Duoneb 0.5 mg-3 mg/3 ml Soln] Allergies Allergy/AdvReac Type Severity Reaction Status Date / Time No Known Allergies Allergy Verified 11/26/23 14:40 Physical Exam Vitals: Vital Signs Temp Pulse Pulse Resp BP Pulse Ox 12/03/23 08:52 77 12/03/23 08:41 76 12/03/23 08:00 17 12/03/23 07:45 98.0 F 65 17 129/65 95 12/03/23 02:00 97.5 F L 98 17 115/72 93 L 12/02/23 21:52 70 12/02/23 21:36 68 12/02/23 20:00 98.6 F 66 16 144/77 95 12/02/23 16:24 68 12/02/23 16:13 64 12/02/23 14:00 98.1 F 66 16 119/70 95 Intake and Output 12/02/23 12/03/23 12/03/23 22:59 06:59 14:59 Intake Total 200 100 Output Total 900 500 500 Balance -700 -500 -400 Intake: Oral 200 100 Output: Urine 900 500 500 Other: Voiding Method Diaper Diaper External Catheter External Catheter # Voids 4 Weight 64 kg Results CBC & Chem 7: 12/03/23 06:49 12/03/23 10:29 Labs: Abnormal Lab Results - Last 24 Hours (Table) 12/02/23 12/02/23 12/02/23 Range/Units 13:41 16:51 19:37 RBC (4.10-5.20) X 10*6/uL Hgb (12.0-15.0) g/dL Hct (37.2-46.3) % MCHC (32.0-37.0) g/dL RDW (11.5-14.5) % Immature Gran # (0.00-0.04) X 10*3/uL Lymphocytes # (0.90-5.00) X 10*3/uL NRBC/100 WBC Diff (0.00-0.01) X 10*3/uL Potassium (3.5-5.1) mmol/L Chloride (98-107) mmol/L BUN (7-17) mg/dL Glucose (74-99) mg/dL POC Glucose (mg/dL) 170 H 190 H 272 H (70-110) mg/dL 12/03/23 12/03/23 12/03/23 Range/Units 06:01 06:49 06:49 RBC 3.39 L (4.10-5.20) X 10*6/uL Hgb 10.1 L (12.0-15.0) g/dL Hct 32.2 L (37.2-46.3) % MCHC 31.4 L (32.0-37.0) g/dL RDW 15.9 H (11.5-14.5) % Immature Gran # 0.27 H (0.00-0.04) X 10*3/uL Lymphocytes # 0.82 L (0.90-5.00) X 10*3/uL NRBC/100 WBC Diff 0.02 H (0.00-0.01) X 10*3/uL Potassium 6.1 H* (3.5-5.1) mmol/L Chloride 109 H (98-107) mmol/L BUN 77 H (7-17) mg/dL Glucose 105 H (74-99) mg/dL POC Glucose (mg/dL) 125 H (70-110) mg/dL 12/03/23 Range/Units 11:17 RBC (4.10-5.20) X 10*6/uL Hgb (12.0-15.0) g/dL Hct (37.2-46.3) % MCHC (32.0-37.0) g/dL RDW (11.5-14.5) % Immature Gran # (0.00-0.04) X 10*3/uL Lymphocytes # (0.90-5.00) X 10*3/uL NRBC/100 WBC Diff (0.00-0.01) X 10*3/uL Potassium (3.5-5.1) mmol/L Chloride (98-107) mmol/L BUN (7-17) mg/dL Glucose (74-99) mg/dL POC Glucose (mg/dL) 158 H (70-110) mg/dL Microbiology - Last 24 Hours (Table) 11/30/23 11:40 Gram Stain - Final Back Wound Culture - Final 11/30/23 09:32 Blood Culture - Preliminary Blood 12/01/23 04:50 Blood Culture - Preliminary Blood Assessment and Plan (1) Pressure ulcer of other site, stage 2 Current Visit: Yes Status: Acute Code(s): L89.892 - PRESSURE ULCER OF OTHER SITE, STAGE 2 SNOMED Code(s): 8827629115 (2) Type 2 diabetes mellitus with other skin ulcer Current Visit: Yes Status: Acute Code(s): E11.622 - TYPE 2 DIABETES MELLITUS WITH OTHER SKIN ULCER; L98.499 - NON-PRESSURE CHRONIC ULCER OF SKIN OF SITES W UNSP SEVERITY SNOMED Code(s): 056107339
[2023-12-03] MEDS: HYDROcodone/APAP 5-325MG 1 EACH TAB PO PRN (13:12)
--- NOTE | 2023-12-03 14:11 | P.PN ---
Subjective Progress Note Date: 12/03/23 Principal diagnosis: Low back pain; complete loss of L1 vertebral body; moderate lumbar canal stenosis; moderate lumbar spine neuroforaminal stenosis Patient was seen at bedside this afternoon sitting up in chair with daughter present during encounter. Patient says her back is feeling a little bit better today. Patient is about to go to MRI for imaging on thoracic and lumbar spine. Patient's daughter says her sister will be coming in shortly to discuss potential treatment options with their mother (patient). Patient denies any other changes at this time. Objective - Vital Signs Vital signs: Vital Signs Temp 98.0 F 12/03/23 07:45 Pulse 69 12/03/23 12:50 Resp 17 12/03/23 08:00 BP 120/75 12/03/23 12:50 Pulse Ox 95 12/03/23 07:45 FiO2 Intake & Output 12/02/23 12/03/23 12/03/23 18:59 06:59 18:59 Intake Total 500 0 100 Output Total 900 500 500 Balance -400 -500 -400 Weight 64 kg Intake: Oral 500 0 100 Output: Urine 900 500 500 Other: Voiding Method Diaper Diaper Diaper External Catheter External Catheter External Catheter # Voids 4 - Exam Inspection: Large ulcerated wound present over lower thoracic and upper lumbar spine midline measuring about 8 cm in length by 3 cm in width. Negative for any changes. Positive for ecchymosis surrounding the wound. Sensation: Equal, symmetric, bilaterally intact throughout the upper and lower extremities. Palpation: Moderate TTP surrounding the wound. NTTP throughout rest of exam. Range of motion: full ROM throughout bilateral wrists and elbows in flexion/extension. Limited range of motion in shoulders and forward elevation, external/internal rotation and abduction. Limited range of motion in bilateral hips and flexion/extension secondary to stiffness and some referred pain in the low-back. full ROM in bilateral ankles and knees Motor: 4/5 in all major motor groups in bilateral upper extremities. 4-/5 in resisted left hip and right hip flexion/extension. 4/5 in resisted ankle dorsi/plantar flexion and knee flexion extension bilaterally. Neurovascular: Radial pulses intact, 2+ bilaterally. cap refill <3 sec in dig its of UE Special tests: Negative Homans bilaterally. Negative clonus bilaterally. Negative Raffi. - Labs CBC & Chem 7: 12/03/23 06:49 12/03/23 10:29 Labs: Abnormal Lab Results - Last 24 Hours (Table) 12/02/23 12/02/23 12/02/23 Range/Units 13:41 16:51 19:37 RBC (4.10-5.20) X 10*6/uL Hgb (12.0-15.0) g/dL Hct (37.2-46.3) % MCHC (32.0-37.0) g/dL RDW (11.5-14.5) % Immature Gran # (0.00-0.04) X 10*3/uL Lymphocytes # (0.90-5.00) X 10*3/uL NRBC/100 WBC Diff (0.00-0.01) X 10*3/uL Potassium (3.5-5.1) mmol/L Chloride (98-107) mmol/L BUN (7-17) mg/dL Glucose (74-99) mg/dL POC Glucose (mg/dL) 170 H 190 H 272 H (70-110) mg/dL 12/03/23 12/03/23 12/03/23 Range/Units 06:01 06:49 06:49 RBC 3.39 L (4.10-5.20) X 10*6/uL Hgb 10.1 L (12.0-15.0) g/dL Hct 32.2 L (37.2-46.3) % MCHC 31.4 L (32.0-37.0) g/dL RDW 15.9 H (11.5-14.5) % Immature Gran # 0.27 H (0.00-0.04) X 10*3/uL Lymphocytes # 0.82 L (0.90-5.00) X 10*3/uL NRBC/100 WBC Diff 0.02 H (0.00-0.01) X 10*3/uL Potassium 6.1 H* (3.5-5.1) mmol/L Chloride 109 H (98-107) mmol/L BUN 77 H (7-17) mg/dL Glucose 105 H (74-99) mg/dL POC Glucose (mg/dL) 125 H (70-110) mg/dL 12/03/23 Range/Units 11:17 RBC (4.10-5.20) X 10*6/uL Hgb (12.0-15.0) g/dL Hct (37.2-46.3) % MCHC (32.0-37.0) g/dL RDW (11.5-14.5) % Immature Gran # (0.00-0.04) X 10*3/uL Lymphocytes # (0.90-5.00) X 10*3/uL NRBC/100 WBC Diff (0.00-0.01) X 10*3/uL Potassium (3.5-5.1) mmol/L Chloride (98-107) mmol/L BUN (7-17) mg/dL Glucose (74-99) mg/dL POC Glucose (mg/dL) 158 H (70-110) mg/dL Microbiology - Last 24 Hours (Table) 12/01/23 04:50 Blood Culture - Preliminary Blood 11/30/23 11:40 Gram Stain - Final Back Wound Culture - Final 11/30/23 09:32 Blood Culture - Preliminary Blood Assessment and Plan Assessment: 1. Low back pain; complete loss of L1 vertebral body; moderate lumbar canal stenosis; moderate lumbar spine neuroforaminal stenosis Plan: 1. Low back pain; complete loss of L1 vertebral body; moderate lumbar canal s tenosis; moderate lumbar spine neuroforaminal stenosis - I did review the findings of the computed tomography scan lumbar spine with my attending, Dr. Bolivar. Computed tomography scan of lumbar spine does show vacuum disc at L1 with complete loss of body height at L1 and central canal and neuroforaminal stenosis. MRI of thoracic and lumbar spine pending. Due to injury leading to instability of spine patient does likely need surgical stabilization at L1 in the form of T11-L3 stabilization. Surgery for T11-L3 stabilization for L1 fracture scheduled for tomorrow pending MRI and family decision. Nothing by mouth at midnight tonight. Discontinue blood thinners. We'll continue to follow patient during stay in hospital. 2. Appreciate medical, ID, pulmonology management 3. Pain management - [place] 4. DVT prophylaxis - discontinue thinners 5. GI prophylaxis - protonix 6. PT/OT - WBAT w/walker and assistance 7. Encourage incentive spirometer use Time with Patient: Less than 30
--- NOTE | 2023-12-03 14:31 | P.PN ---
Subjective Progress Note Date: 12/03/23 I am seeing this patient in consultation today 11/27/2023 after she was sent from her local ECF after being noted to be short of breath and hypoxic. Patient is a 88-year-old white female with past medical history significant for congestive heart failure, chronic hypoxemic respiratory failure on 2 L O2 at baseline, diabetes mellitus, hypertension, hyperlipidemia, and recent right- sided hip fracture with prolonged hospitalization at outside facility. She resides at [facility]. She had a recent hospitalization at our facility in September of this year for congestive heart failure. Echocardiogram done 10/09/2023 showed a preserved left ventricular ejection fraction, moderate mitral regurgitation, moderate to severe tricuspid regurgitation, and severe pulmonary hypertension. There was a repeat hospital admission earlier in October of this year for similar symptoms. She was incidentally noted to be influenza A positive. She was discharged back to her ECF 11/06/2023. She has been taking Lasix 40 mg twice daily. She has completed her course of Tamiflu. Patient returns after progressively worsening dyspnea while at [facility]. She was noted to be hypoxic on her chronic 2 L/min nasal cannula. She was brought in by EMS yesterday afternoon. Patient is currently resting in bed, on 4 L/min nasal cannula, in no acute distress. She does have worsening lower extremity edema. Denies any chest pain, heart palpitations, lightheadedness, orthopnea, PND. Denies any fevers, chills, cough, hemoptysis. Chest x-ray done on arrival appears to show diffuse pulmonary edema and mild cardiomegaly. Superimposed multifocal pneumonia could be within the differential. CBC does show leukocytosis with a WBC count of 22.4, hemoglobin 9.5, hematocrit 30.4, platelets 157. BMP on arrival: Sodium 135, potassium 5.3, chloride 106, serum bicarb 23, BUN 60, creatinine 1.23, glucose 531. Lactic 1.4. Troponin less than 0.012. NT proBNP 3100. Procalcitonin 0.35. Urinalysis shows small leukocyte esterase and pyuria. Negative for influenza, RSV, COVID. Patient is empirically covered on azithromycin and Rocephin. Vital signs are stable. On today's evaluation of 11/28/2023, the patient is being seen for a follow-up. Slightly improved compared to yesterday and the patient is currently on 40 Suboxone by nasal cannula with a pulse ox of 97%. Responding to the diuretics and the patient is currently in negative fluid balance. The white cell count is 16.8 with a hemoglobin of 10.5 and a platelet count of 179. The rest of the blood work and electrolytes are stable. Creatinine is up to 1.3 with a BUN of 45 and a sodium levels at 142. Potassium level needs to be replaced at 2.9. The patient remains on IV Rocephin. The patient is also on IV Lasix 40 mg every 12 hours. There is a single blood culture that showed gram-positive cocci in clusters, likely contaminant. This is 1 out of 2 bottles. Urine culture is showing gram-negative bacillus. Overall condition is stable. Hemodynamically stable. No hypotension. No fever. No significant tachycardia. On today's evaluation of 11/28/2023, the patient is feeling well. Less short of breath compared to yesterday. CHF is being optimized. The patient is still being diuresed with IV Lasix 40 mg every 12 hours. Fluid balance is -1 L over the past 24 hours. Renal function is stable with a BUN of 16 and creatinine 1.2 and a sodium levels at 140. Potassium level is at 3.6. The patient is currently on 4 L of O2 nasal cannula with a pulse ox of 98% and the oxygenation is stable and this can be gradually weaned off. The patient is responding nicely to diuretics. No clear indication for pneumonia. Nevertheless, the blood culture was presumptive MRSA in the urine culture was also positive for ESBL producing E. coli. The patient's UA showed small significant abnormalities. Procalcitonin level is at 0.26. Current antibiotic coverage includes Rocephin and vancomycin. The patient is seen today November 30, 2023 in follow-up on the regular medical floor. She is currently resting comfortably in bed. Awake and alert in no acute distress. She is maintaining good O2 saturations in the upper 90s on 4 L/min per nasal cannula. Urine culture was positive for Klebsiella pneumoniae. Blood cultures are positive for MRSA. White count 10.1. Hemoglobin 10.0. Platelets 202. Sodium 144. Potassium 3.5. Bicarb 32. BUN 48. Creatinine 1.1. C-reactive protein 5.7. Procalcitonin 0.14. She is continued on DuoNeb inhalations, antibiotics in the form of ertapenem and vancomycin. Remains on oral diuretics. The patient is seen today December 01, 2023 in follow-up on the regular medical floor. She is sitting up at the bedside. Feeling a bit better today compared to yesterday. She is maintaining O2 saturations in the 90s on room air. Urine culture was positive for Klebsiella pneumoniae. Blood culture was positive for MRSA. White count 10.9. Hemoglobin 9.5. Platelets 211. Sodium 138. P otassium 4.1. Bicarb 33. BUN 54. Creatinine 1.05. Glucose 245. Chest x-ray revealed much improved aeration about the perihilar regions and residual perihilar infiltrate and pulmonary venous congestion. CT of the lumbar spine revealed complete loss of vertebral body height of L1 vertebrae. Superimposed infection is not excluded. No subcutaneous organizing fluid collection. Degenerative changes noted. He is continued on ertapenem and vancomycin. Remains on bronchodilators. Remains on diuretics. The patient is seen today December 02, 2023 in follow-up on the regular medical floor. She is currently resting comfortably in bed. Awake and alert in no acute distress. Maintaining good O2 saturations in the mid 90s on room air. She has been afebrile. Hemodynamically stable. Blood cultures were positive for MRSA. Urine culture was positive for Klebsiella pneumoniae. She is continued on vancomycin and Invanz. Follow-up blood culture revealing no growth thus far. Glucose 196. Creatinine 0.98. She is continued on DuoNeb ventilations. Transition to oral diuretics. No accurate I & O. The patient is seen today December 03, 2023 in follow-up on the regular medical floor. She is awake and alert in no acute distress. Resting fairly comfortably in bed. She continues to maintain good O2 saturations in the 90s on room air. She has been afebrile. Hemodynamically stable. MRI of the spine is pending. Follow-up blood cultures revealed no growth. Wound culture of the back revealed no growth. White count 9.6. Hemoglobin 10.1. Platelets 256. Sodium 141. Potassium 5.1. Bicarb 30. BUN 77. Creatinine 0.99. Glucose 105. She remains on bronchodilators. Remains on oral diuretics. Antibiotics in the form of vancomycin. Objective - Vital Signs Vital signs: Vital Signs Temp 98.0 F 03/07/24 07:45 Pulse 69 12/03/23 12:50 Resp 17 12/03/23 08:00 BP 120/75 12/03/23 12:50 Pulse Ox 95 12/03/23 07:45 FiO2 Intake & Output 12/02/23 12/03/23 12/03/23 18:59 06:59 18:59 Intake Total 500 0 100 Output Total 900 500 500 Balance -400 -500 -400 Weight 64 kg Intake: Oral 500 0 100 Output: Urine 900 500 500 Other: Voiding Method Diaper Diaper Diaper External Catheter External Catheter External Catheter # Voids 4 - Exam GENERAL EXAM: Alert, 88-year-old female, resting comfortably in bed, on room air, in no apparent distress. HEAD: Normocephalic and atraumatic EYES: Normal reaction of pupils, equal size. NOSE: Clear with pink turbinates. THROAT: No erythema or exudates. NECK: No masses, no JVD. CHEST: No chest wall deformity. LUNGS: Equal air entry with bibasilar crackles. No wheeze, rhonchi or focal dullness. No conversational dyspnea. CVS: S1 and S2 normal with soft grade 1/6 systolic murmur, regular rhythm. No other extra heart sounds ABDOMEN: No hepatosplenomegaly, active bowel sounds, no guarding or rigidity. SPINE: No scoliosis or deformity SKIN: No rashes stage II pressure ulcer of the midline back CENTRAL NERVOUS SYSTEM: No focal deficits, tone is normal in all 4 extremities. EXTREMITIES: There is 2+ bilateral lower extremity pitting edema. Clubbing, or cyanosis. Peripheral pulses are intact. - Labs CBC & Chem 7: 12/03/23 06:49 12/03/23 10:29 Labs: Abnormal Lab Results - Last 24 Hours (Table) 12/02/23 12/02/23 12/03/23 Range/Units 16:51 19:37 06:01 RBC (4.10-5.20) X 10*6/uL Hgb (12.0-15.0) g/dL Hct (37.2-46.3) % MCHC (32.0-37.0) g/dL RDW (11.5-14.5) % Immature Gran # (0.00-0.04) X 10*3/uL Lymphocytes # (0.90-5.00) X 10*3/uL NRBC/100 WBC Diff (0.00-0.01) X 10*3/uL Potassium (3.5-5.1) mmol/L Chloride (98-107) mmol/L BUN (7-17) mg/dL Glucose (74-99) mg/dL POC Glucose (mg/dL) 190 H 272 H 125 H (70-110) mg/dL 12/03/23 12/03/23 12/03/23 Range/Units 06:49 06:49 11:17 RBC 3.39 L (4.10-5.20) X 10*6/uL Hgb 10.1 L (12.0-15.0) g/dL Hct 32.2 L (37.2-46.3) % MCHC 31.4 L (32.0-37.0) g/dL RDW 15.9 H (11.5-14.5) % Immature Gran # 0.27 H (0.00-0.04) X 10*3/uL Lymphocytes # 0.82 L (0.90-5.00) X 10*3/uL NRBC/100 WBC Diff 0.02 H (0.00-0.01) X 10*3/uL Potassium 6.1 H* (3.5-5.1) mmol/L Chloride 109 H (98-107) mmol/L BUN 77 H (7-17) mg/dL Glucose 105 H (74-99) mg/dL POC Glucose (mg/dL) 158 H (70-110) mg/dL Microbiology - Last 24 Hours (Table) 12/01/23 04:50 Blood Culture - Preliminary Blood 11/30/23 11:40 Gram Stain - Final Back Wound Culture - Final 11/30/23 09:32 Blood Culture - Preliminary Blood Assessment and Plan Assessment: Acute on chronic hypoxemic respiratory failure, likely secondary to exacerbation of diastolic congestive heart failure, and superimposed pneumonia is felt to be less likely. Chest x-ray initially showed diffuse patchy fluffy infiltrates and mild cardiomegaly concerning for pulmonary edema and/or multifocal pneumonia is within the differential. NT proBNP was elevated at 3100. The patient responding nicely to diuretics. Currently on room air and follow-up chest x-ray shows significant improvement. Chronic diastolic heart failure and valvular heart disease with moderate to severe mitral regurgitation and severe tricuspid regurgitation with secondary pulmonary hypertension. Left ventricular ejection fraction was estimated at 55 to 60% on most recent echocardiogram. Severe mitral regurgitation Chronic hypoxemic respiratory failure, secondary to above Leukocytosis, improving Gram-negative urine tract infection, ESBL producing Klebsiella pneumoniae with a mildly abnormal UA. Could be colonization versus true infection. Completed Invanz Methicillin resistant Staphylococcus aureus in the blood cultures Currently on vancomycin. Acute kidney injury, creatinine is stable and improved compared to yesterday Benign essential hypertension History of hyperlipidemia Diabetes mellitus type 2 History of fall with right hip fracture and recent complicated hospital stay at outside facility ECF resident Plan: The patient was seen and evaluated Medications and labs reviewed Remains on vancomycin Currently stable and on room air Increase her activity as tolerated MRI of the spine is pending We will continue to follow I have personally seen and examined the patient, performed the documentation and the assessment and plan as written. Number of minutes spent on the visit: 10.
--- NOTE | 2023-12-03 15:06 | P.PN ---
Subjective Progress Note Date: 12/01/23 Principal diagnosis: Reason for follow-up is MRSA bacteremia Patient is a 88-year-old female with a past medical history significant for diabetes mellitus hypertension pneumonia heart failure patient recently did have a fall leading to the right hip fracture status postsurgical repair since then the patient seem to have a problem with a nonhealing wound to the mid back area, patient was brought to the hospital for shortness of breath and hypoxemia she did have a positive culture with ESBL Klebsiella and blood culture positive for MRSA prompting this consultation On today's visit that is 12/01/2023, patient denies having any fever or any chills, patient is breathing comfortably on room air denies any chest pain or shortness with occasional cough no nausea reviewed no abdominal pain or any worsening pain to the lower back area Patient did have a white count of 10.90, creatinine 1.05, CT of the lumbar spine complete loss of vertebral body height L1 vertebra superimposed infection not excluded Objective - Vital Signs Vital signs: Vital Signs Temp 98.7 F 12/01/23 13:55 Pulse 63 12/01/23 13:55 Resp 18 12/01/23 13:55 BP 138/71 12/01/23 13:55 Pulse Ox 90 L 12/01/23 13:55 FiO2 Intake & Output 11/30/23 12/01/23 12/01/23 18:59 06:59 18:59 Intake Total 180 Output Total 650 300 Balance -470 -300 Weight 63.5 kg 63.5 kg Intake: Oral 180 Output: Urine 650 300 Other: Voiding Method Diaper Diaper Diaper External Catheter External Catheter External Catheter - Exam GENERAL DESCRIPTION: An elderly female lying in bed in no distress RESPIRATORY SYSTEM: Unlabored breathing , decreased breath sounds at bases HEART: S1 S2 regular rate and rhythm , ABDOMEN: Soft , no tenderness EXTREMITIES: No edema feet - Labs CBC & Chem 7: 12/03/23 06:49 12/03/23 10:29 Labs: Abnormal Lab Results - Last 24 Hours (Table) 11/30/23 11/30/23 11/30/23 Range/Units 16:19 16:47 20:54 WBC (4.50-10.00) X 10*3/uL RBC (4.10-5.20) X 10*6/uL Hgb (12.0-15.0) g/dL Hct (37.2-46.3) % MCHC (32.0-37.0) g/dL RDW (11.5-14.5) % Immature Gran # (0.00-0.04) X 10*3/uL Neutrophils # (1.80-7.70) X 10*3/uL Lymphocytes # (0.90-5.00) X 10*3/uL ESR (0-30) mm/Hr D-Dimer 3.73 H (<0.60) mg/L FEU Carbon Dioxide (22-30) mmol/L BUN (7-17) mg/dL Creatinine (0.52-1.04) mg/dL Glucose (74-99) mg/dL POC Glucose (mg/dL) 348 H 358 H (70-110) mg/dL C-Reactive Protein (<1.0) mg/dL 12/01/23 12/01/23 12/01/23 Range/Units 04:50 04:50 06:24 WBC 10.90 H (4.50-10.00) X 10*3/uL RBC 3.17 L (4.10-5.20) X 10*6/uL Hgb 9.5 L (12.0-15.0) g/dL Hct 30.4 L (37.2-46.3) % MCHC 31.3 L (32.0-37.0) g/dL RDW 15.5 H (11.5-14.5) % Immature Gran # 0.24 H (0.00-0.04) X 10*3/uL Neutrophils # 9.00 H (1.80-7.70) X 10*3/uL Lymphocytes # 0.54 L (0.90-5.00) X 10*3/uL ESR 80 H (0-30) mm/Hr D-Dimer (<0.60) mg/L FEU Carbon Dioxide 33 H (22-30) mmol/L BUN 54 H (7-17) mg/dL Creatinine 1.05 H (0.52-1.04) mg/dL Glucose 245 H (74-99) mg/dL POC Glucose (mg/dL) 251 H (70-110) mg/dL C-Reactive Protein 4.8 H (<1.0) mg/dL 12/01/23 Range/Units 11:20 WBC (4.50-10.00) X 10*3/uL RBC (4.10-5.20) X 10*6/uL Hgb (12.0-15.0) g/dL Hct (37.2-46.3) % MCHC (32.0-37.0) g/dL RDW (11.5-14.5) % Immature Gran # (0.00-0.04) X 10*3/uL Neutrophils # (1.80-7.70) X 10*3/uL Lymphocytes # (0.90-5.00) X 10*3/uL ESR (0-30) mm/Hr D-Dimer (<0.60) mg/L FEU Carbon Dioxide (22-30) mmol/L BUN (7-17) mg/dL Creatinine (0.52-1.04) mg/dL Glucose (74-99) mg/dL POC Glucose (mg/dL) 252 H (70-110) mg/dL C-Reactive Protein (<1.0) mg/dL Microbiology - Last 24 Hours (Table) 11/30/23 11:40 Gram Stain - Preliminary Back 11/26/23 17:00 Blood Culture Gram Stain - Final Blood Blood Culture - Final Methicillin resist S. aureus Assessment and Plan (1) MRSA bacteremia Current Visit: Yes Status: Acute Code(s): R78.81 - BACTEREMIA; B95.62 - METHICILLIN RESIS STAPH INFCT CAUSING DISEASES CL[facility]SD [facility] SNOMED Code(s): 98406121875317383 (2) Stage III pressure ulcer of back Current Visit: No Status: Acute Code(s): L89.103 - PRESSURE ULCER OF UNSPECIFIED PART OF BACK, STAGE 3 SNOMED Code(s): 56534712896693589 Plan: 1patient with MRSA bacteremia in this patient presented to hospital with increasing shortness of breath however no significant cough or sputum production clinically not behaving as pneumonia the patient did have a wound to the mid back area did have some purulent drainage which has been culture and high clinical suspicion for possible lumbar spine disease versus paraspinal abscess 2- CT of the lumbar spine with contrast shows vertebral body loss at L1 question of super added infection 3- we will obtain orthopedic spine consultation for evaluation and further treatment 4-vancomycin pharmacy to dose target trough of 15 while watching kidney function and Vanco trough closely Grand Daughter at the bedside multiple questions answered Dictation was produced using [email or web address] dictation software. please excuse any gramm atical, word or spelling errors. Time with Patient: Less than 30
--- NOTE | 2023-12-03 15:07 | P.PN ---
Subjective Progress Note Date: 12/02/23 Principal diagnosis: Reason for follow-up is MRSA bacteremia Patient is a 88-year-old female with a past medical history significant for diabetes mellitus hypertension pneumonia heart failure patient recently did have a fall leading to the right hip fracture status postsurgical repair since then the patient seem to have a problem with a nonhealing wound to the mid back area, patient was brought to the hospital for shortness of breath and hypoxemia she did have a positive culture with ESBL Klebsiella and blood culture positive for MRSA prompting this consultation On today's visit that is 12/02/2023,the patient remains to be afebrile, patient is on room air not requiring supplemental oxygen and denies any shortness of breath no chest pain or cough.Patient denies having any nausea or vomiting, no abdominal pain and no diarrhea has been reported Patient did have a creatinine 0.98 no CBC was done today, repeat cultures so far negative Objective - Vital Signs Vital signs: Vital Signs Temp 97.6 F 12/02/23 08:00 Pulse 71 12/02/23 08:00 Resp 16 12/02/23 08:00 BP 139/75 12/02/23 08:00 Pulse Ox 95 12/02/23 08:00 FiO2 Intake & Output 12/01/23 12/02/23 12/02/23 18:59 06:59 18:59 Output Total 650 Balance -650 Weight 63.5 kg 64 kg Output: Urine 650 Other: Voiding Method Diaper Diaper External Catheter External Catheter # Voids 4 # Bowel Movements 2 - Exam GENERAL DESCRIPTION: An elderly female lying in bed in no distress RESPIRATORY SYSTEM: Unlabored breathing , decreased breath sounds at bases HEART: S1 S2 regular rate and rhythm , ABDOMEN: Soft , no tenderness EXTREMITIES: No edema feet - Labs CBC & Chem 7: 12/03/23 06:49 12/03/23 10:29 Labs: Abnormal Lab Results - Last 24 Hours (Table) 12/01/23 12/01/23 12/01/23 Range/Units 11:20 16:22 21:22 POC Glucose (mg/dL) 252 H 350 H 370 H (70-110) mg/dL 12/02/23 Range/Units 05:52 POC Glucose (mg/dL) 196 H (70-110) mg/dL Microbiology - Last 24 Hours (Table) 11/26/23 17:15 Blood Culture - Final Blood 11/30/23 11:40 Gram Stain - Preliminary Back Wound Culture - Preliminary 11/30/23 09:32 Blood Culture - Preliminary Blood Assessment and Plan (1) MRSA bacteremia Current Visit: Yes Status: Acute Code(s): R78.81 - BACTEREMIA; B95.62 - METHICILLIN RESIS STAPH INFCT CAUSING DISEASES CLASSD [id number] SNOMED Code(s): 53565663135875038 (2) Leukocytosis Current Visit: No Status: Acute Code(s): D72.829 - ELEVATED WHITE BLOOD CELL COUNT, UNSPECIFIED SNOMED Code(s): 812673287 (3) Stage III pressure ulcer of back Current Visit: No Status: Acute Code(s): L89.103 - PRESSURE ULCER OF UNSPECIFIED PART OF BACK, STAGE 3 SNOMED Code(s): 07609672307750087 Plan: 1patient with MRSA bacteremia in this patient presented to hospital with increasing shortness of breath however no significant cough or sputum production clinically not behaving as pneumonia the patient did have a wound to the mid back area did have some purulent drainage which has been culture and high clinical suspicion for possible lumbar spine disease versus paraspinal abscess 2- CT of the lumbar spine with contrast shows vertebral body loss at L1 question of super added infection 3-patient has been evaluated by orthopedics recommending MRI and surgical correction 4-patient to vancomycin pharmacy to dose target trough of 15 while watching kidney function closely and await MRI Dictation was produced using [employer] dictation software. please excuse any grammatical, word or spelling errors. Time with Patient: Less than 30
--- NOTE | 2023-12-03 15:08 | P.PN ---
Subjective Progress Note Date: 12/03/23 Principal diagnosis: Reason for follow-up is MRSA bacteremia Patient is a 88-year-old female with a past medical history significant for diabetes mellitus hypertension pneumonia heart failure patient recently did have a fall leading to the right hip fracture status postsurgical repair since then the patient seem to have a problem with a nonhealing wound to the mid back area, patient was brought to the hospital for shortness of breath and hypoxemia she did have a positive culture with ESBL Klebsiella and blood culture positive for MRSA prompting this consultation On today's visit that is 12/03/2023, the patient continues to be afebrile, the patient is on room air and breathing comfortably, the Pt denies having any chest pain or cough, the patient denies having any abdominal pain no vomiting or any diarrhea has been reported by the nursing staff Patient white count normalized to 9.62 creatinine 0.99 vancomycin trough was 15.4 Objective - Vital Signs Vital signs: Vital Signs Temp 98.0 F 12/03/23 07:45 Pulse 77 12/03/23 08:52 Resp 17 12/03/23 07:45 BP 129/65 12/03/23 07:45 Pulse Ox 95 12/03/23 07:45 FiO2 Intake & Output 12/02/23 12/03/23 12/03/23 18:59 06:59 18:59 Intake Total 500 0 Output Total 900 500 Balance -400 -500 Weight 64 kg Intake: Oral 500 0 Output: Urine 900 500 Other: Voiding Method Diaper Diaper External Catheter External Catheter - Exam GENERAL DESCRIPTION: An elderly female lying in bed in no distress RESPIRATORY SYSTEM: Unlabored breathing , decreased breath sounds at bases HEART: S1 S2 regular rate and rhythm , ABDOMEN: Soft , no tenderness EXTREMITIES: No edema feet - Labs CBC & Chem 7: 12/03/23 06:49 12/03/23 10:29 Labs: Abnormal Lab Results - Last 24 Hours (Table) 12/02/23 12/02/23 12/02/23 Range/Units 13:41 16:51 19:37 Potassium (3.5-5.1) mmol/L Chloride (98-107) mmol/L BUN (7-17) mg/dL Glucose (74-99) mg/dL POC Glucose (mg/dL) 170 H 190 H 272 H (70-110) mg/dL 12/03/23 12/03/23 Range/Units 06:01 06:49 Potassium 6.1 H* (3.5-5.1) mmol/L Chloride 109 H (98-107) mmol/L BUN 77 H (7-17) mg/dL Glucose 105 H (74-99) mg/dL POC Glucose (mg/dL) 125 H (70-110) mg/dL Microbiology - Last 24 Hours (Table) 11/30/23 11:40 Gram Stain - Final Back Wound Culture - Final 11/30/23 09:32 Blood Culture - Preliminary Blood 12/01/23 04:50 Blood Culture - Preliminary Blood Assessment and Plan (1) MRSA bacteremia Current Visit: Yes Status: Acute Code(s): R78.81 - BACTEREMIA; B95.62 - METHICILLIN RESIS STAPH INFCT CAUSING DISEASES CLASSD [facility] SNOMED Code(s): 54150593145427120 (2) Stage III pressure ulcer of back Current Visit: No Status: Acute Code(s): L89.103 - PRESSURE ULCER OF UNSPECIFIED PART OF BACK, STAGE 3 SNOMED Code(s): 86661326417302968 Plan: 1patient with MRSA bacteremia in this patient presented to hospital with increasing shortness of breath however no significant cough or sputum production clinically not behaving as pneumonia the patient did have a wound to the mid back area did have some purulent drainage which has been culture and high clinical suspicion for possible lumbar spine disease versus paraspinal abscess 2- CT of the lumbar spine with contrast shows vertebral body loss at L1 question of super added infection 3-patient has been evaluated by orthopedics recommending MRI which is scheduled for this afternoon 4-patient to vancomycin pharmacy to dose target trough of 15 while waiting for the workup to be completed Family at the bedside questions answered Dictation was produced using [employer] dictation software. please excuse any grammatical, word or spelling errors. Time with Patient: Less than 30
--- NOTE | 2023-12-03 17:01 | MR ---
EXAMINATION TYPE: MR tspine/lspine wo/w con DATE OF EXAM: 12/03/2023 COMPARISON: CT lumbar spine 11/30/2023 HISTORY: Mid and low back pain, abnormal CT Additional: 88 F with history of lumbar wound /ABSCESS , MRSA bacteremia; [facility], Lumbar wound /ABSCESS , MRSA bacteremia. Inpatient. TECHNIQUE: Multiplanar, multiparameter sequences the thoracolumbar spine performed without and with I V contrast, utilizing 6.5 mL intravenous Gadobutrol FINDINGS/IMPRESSION: Quality of the study: Motion artifact limits visualization on nearly all images. Redemonstrated severe degenerative spine changes from L1 through L3, with severe compression fracture and complete vertical height loss of the L1 vertebral body with resultant kyphosis and 6 mm postcomp ression fracture retrolisthesis of L1 with respect to T12. * There is moderate-marked central canal spinal stenosis at T12-L1, L1-2, and L2-3. There is 8mm deg enerative retrolisthesis of L2 with restricted L3. * There is no definite T2 hyperintense cord signal at this time. * There is nonspecific T2 hyperintensity and gadolinium enhancement of the intervertebral disks and L1 vertebral body, extending from T12-L1 to L1-2. Nuclear medicine WBC scan can add specificity for t he diagnosis of infection. There are no definite extraspinal soft tissue fluid collections. IMPRESSION:
[2023-12-03 17:12] LABS: Glucose,Whole Blood 229 mg/dL (70-110)
[2023-12-03 20:15] LABS: Glucose,Whole Blood 233 mg/dL (70-110)
[2023-12-04 05:20] LABS: Glucose,Whole Blood 120 mg/dL (70-110)
--- NOTE | 2023-12-04 06:03 | P.PN ---
Subjective Progress Note Date: 12/03/23 This is an 88-year-old female who was recently admitted with acute CHF with exacerbation along with generalized weakness and concerns for pneumonia being closely monitored. Multiple medical consultations following including orthopedic and MRI of the spine is currently ordered and pending for today. In fectious disease following as well and feels there may be concern for abscess or infectious process within the spine as patient did have MRSA bacteremia. Most recent blood culture is negative and patient is maintained on antibiotics. Orthopedics discussing surgery options and awaiting family decision Review of systems: Constitutional: No reports of fatigue, fever, or chills Cardiovascular: No reports of chest pain or palpitations Respiratory: No reports of shortness of breath or cough GI: No reports of nausea, no reports of vomiting, no diarrhea : No reports of dysuria or retention Neurovascular: reports of generalized weakness, some back pain All medications have been reviewed PHYSICAL EXAMINATION: GENERAL: The patient is alert and oriented x2-3, Well developed, well nourishe d. Elderly appearing HEENT: Pupils are round and equally reacting to light. EOMI. no scleral icterus. No conjunctival pallor. Normocephalic, atraumatic. No pharyngeal erythema. No thyromegaly. CARDIOVASCULAR: S1 and S2 muffled PULMONARY: diminished breath sounds bilaterally with no wheezing or rhonchi noted. ABDOMEN: soft. Nontender on exam. non-distended, normoactive bowel sounds. No palpable organomegaly. MUSCULOSKELETAL: No joint swelling or deformity. EXTREMITIES: No cyanosis, clubbing, or pedal edema. NEUROLOGICAL: Gross neurological examination did not reveal any focal deficits. Diffuse weakness SKIN: No rashes. Assessment: Acute pneumonia, community-acquired with acute on chronic hypoxic respiratory failure Acute on chronic diastolic congestive heart failure, acute exacerbation Acute renal injury Possible acute urinary tract infection, present on admission with Klebsiella pneumonia in the urine L1 compression fracture with severe degenerative joint disease Gait dysfunction with generalized weakness Leukocytosis, improved Left ear pain with bleeding secondary to excoriation and trauma MRSA bacteremia GI prophylaxis DVT prophylaxis Full code Plan: Recommend to continue with current medications and management with multiple medical consultations following Infectious disease following maintained on antibiotics and there is concern for abscess within the spine as patient had positive bacteremia with MRSA. Most recent cultures are negative Patient scheduled to undergo lumbar spine MRI with orthopedics following today and currently pending. Plan is for surgical intervention although awaiting for family to discuss further regarding treatment options moving forward PT/OT therapy daily as patient is with weakness and progressively more weak. Patient has had multiple hospitalizations and has been to rehab a few times most recently. Patient's family would like to take the patient home once discharged as they were not happy with the care she was receiving at [facility]. Will follow-up with repeat labs in the a.m. Patient will be n.p.o. at midnight in the event patient and family agree on surgery Due to multiple complex medical issues, prognosis is guarded The impression and plan of care has been dictated by Rosario Murphy, nurse practitioner as directed. Dr. Bhargav MD I have performed a history and examination and MDM of this patient, discussed the same with the dictator, and agree with the dictator's assessment and plan as written ,documented as a scribe. Based on total visit time, I have performed more than 50% of the visit. Any additional findings or plans will be noted. Objective - Vital Signs Vital signs: Vital Signs Temp 98.7 F 12/04/23 01:27 Pulse 63 12/04/23 01:27 Resp 20 12/04/23 01:27 BP 113/65 12/04/23 01:27 Pulse Ox 96 12/04/23 01:27 FiO2 Intake & Output 12/03/23 12/03/23 12/04/23 06:59 18:59 06:59 Intake Total 0 100 440 Output Total 500 1100 150 Balance -500 -1000 290 Weight 64 kg 64 kg Intake: Oral 0 100 440 Output: Urine 500 1100 150 Other: Voiding Method Diaper Diaper Diaper External Catheter External Catheter External Catheter # Voids 1 - Labs CBC & Chem 7: 12/03/23 06:49 12/03/23 10:29 Labs: Abnormal Lab Results - Last 24 Hours (Table) 12/03/23 12/03/23 12/03/23 Range/Units 06:01 06:49 06:49 RBC 3.39 L (4.10-5.20) X 10*6/uL Hgb 10.1 L (12.0-15.0) g/dL Hct 32.2 L (37.2-46.3) % MCHC 31.4 L (32.0-37.0) g/dL RDW 15.9 H (11.5-14.5) % Immature Gran # 0.27 H (0.00-0.04) X 10*3/uL Lymphocytes # 0.82 L (0.90-5.00) X 10*3/uL NRBC/100 WBC Diff 0.02 H (0.00-0.01) X 10*3/uL Potassium 6.1 H* (3.5-5.1) mmol/L Chloride 109 H (98-107) mmol/L BUN 77 H (7-17) mg/dL Glucose 105 H (74-99) mg/dL POC Glucose (mg/dL) 125 H (70-110) mg/dL 12/03/23 12/03/23 12/03/23 Range/Units 11:17 17:11 20:12 RBC (4.10-5.20) X 10*6/uL Hgb (12.0-15.0) g/dL Hct (37.2-46.3) % MCHC (32.0-37.0) g/dL RDW (11.5-14.5) % Immature Gran # (0.00-0.04) X 10*3/uL Lymphocytes # (0.90-5.00) X 10*3/uL NRBC/100 WBC Diff (0.00-0.01) X 10*3/uL Potassium (3.5-5.1) mmol/L Chloride (98-107) mmol/L BUN (7-17) mg/dL Glucose (74-99) mg/dL POC Glucose (mg/dL) 158 H 229 H 233 H (70-110) mg/dL 12/04/23 Range/Units 05:19 RBC (4.10-5.20) X 10*6/uL Hgb (12.0-15.0) g/dL Hct (37.2-46.3) % MCHC (32.0-37.0) g/dL RDW (11.5-14.5) % Immature Gran # (0.00-0.04) X 10*3/uL Lymphocytes # (0.90-5.00) X 10*3/uL NRBC/100 WBC Diff (0.00-0.01) X 10*3/uL Potassium (3.5-5.1) mmol/L Chloride (98-107) mmol/L BUN (7-17) mg/dL Glucose (74-99) mg/dL POC Glucose (mg/dL) 120 H (70-110) mg/dL Microbiology - Last 24 Hours (Table) 11/30/23 11:40 Anaerobic Culture - Preliminary Back 11/30/23 09:32 Blood Culture - Preliminary Blood 12/01/23 04:50 Blood Culture - Preliminary Blood
[2023-12-04 08:01] LABS: African American GFR (CKD) 61 (>60 ml/min/1.73 sqM); Anion Gap 5 mmol/L; Blood Urea Nitrogen 66 mg/dL (7-17); Calcium 8.8 mg/dL (8.4-10.2); Carbon Dioxide 29 mmol/L (22-30); Chloride 107 mmol/L (98-107); Glucose 93 mg/dL (74-99); Magnesium 1.5 mg/dL (1.6-2.3); Non-African American GFR(CKD) 53 (>60 ml/min/1.73 sqM); Potassium 3.8 mmol/L (3.5-5.1); Sodium 141 mmol/L (137-145)
[2023-12-04] MEDS ORDERED: Magnesium Replacement Protocol 1 EACH MISC MISCELLANE PRN (09:37)
[2023-12-04] MEDS: MAGNESIUM SULFATE-D5W PMX 1 GM in DEXTROSE/WATER 1 100ML.BAG IVPB SCH (09:51)
[2023-12-04 11:08] LABS: Glucose,Whole Blood 138 mg/dL (70-110)
--- NOTE | 2023-12-04 11:11 | P.PN ---
Progress Note - Text Progress Note Date: 12/04/23 Patient is scheduled for T11-L3 stabilization for L1 fracture this afternoon. Patient is at high risk for cardiac event perioperatively due to underlying heart failure and other comorbidities. Proceed with surgery if absolutely necessary.
--- NOTE | 2023-12-04 11:19 | P.PN ---
Subjective Progress Note Date: 12/04/23 Principal diagnosis: Low back pain; complete loss of L1 vertebral body; moderate lumbar canal stenosis; moderate lumbar spine neuroforaminal stenosis Patient was seen at bedside this morning sitting up in bed with granddaughter present during encounter. Patient says her back is feeling fine. Patient did go yesterday for MRI of thoracic and lumbar spine. Wound care following patient. Patient denies any other issues at this time. Patient daughter Ying did speak over phone with Dr. Bolivar this morning about MRI results and possible surgical intervention. Ying to discuss with family and patient about treatment options. Objective - Vital Signs Vital signs: Vital Signs Temp 97.6 F 12/04/23 07:56 Pulse 70 12/04/23 08:42 Resp 16 12/04/23 08:00 BP 124/74 12/04/23 07:56 Pulse Ox 99 12/04/23 08:31 FiO2 Intake & Output 12/03/23 12/04/23 12/04/23 18:59 06:59 18:59 Intake Total 100 440 Output Total 1100 150 Balance -1000 290 Weight 64 kg Intake: Oral 100 440 Output: Urine 1100 150 Other: Voiding Method Diaper Diaper Diaper External Catheter External Catheter External Catheter # Voids 1 - Exam Inspection: Large ulcerated wound present over lower thoracic and upper lumbar spine midline measuring about 8 cm in length by 3 cm in width. Negative for any changes. Positive for ecchymosis surrounding the wound. Sensation: Equal, symmetric, bilaterally intact throughout the upper and lower extremities. Palpation: Moderate TTP surrounding the wound. NTTP throughout rest of exam. Range of motion: full ROM throughout bilateral wrists and elbows in flexion/extension. Limited range of motion in shoulders and forward elevation, external/internal rotation and abduction. Limited range of motion in bilateral hips and flexion/extension secondary to stiffness and some referred pain in the low-back. full ROM in bilateral ankles and knees Motor: 4/5 in all major motor groups in bilateral upper extremities. 4-/5 in resisted left hip and right hip flexion/extension. 4/5 in resisted ankle dorsi/plantar flexion and knee flexion extension bilaterally. Neurovascular: Radial pulses intact, 2+ bilaterally. cap refill <3 sec in digits of UE Special tests: Negative Homans bilaterally. Negative clonus bilaterally. Negative Raffi. - Labs CBC & Chem 7: 12/03/23 06:49 12/04/23 07:21 Labs: Abnormal Lab Results - Last 24 Hours (Table) 12/03/23 12/03/23 12/03/23 Range/Units 06:49 11:17 17:11 RBC 3.39 L (4.10-5.20) X 10*6/uL Hgb 10.1 L (12.0-15.0) g/dL Hct 32.2 L (37.2-46.3) % MCHC 31.4 L (32.0-37.0) g/dL RDW 15.9 H (11.5-14.5) % Immature Gran # 0.27 H (0.00-0.04) X 10*3/uL Lymphocytes # 0.82 L (0.90-5.00) X 10*3/uL NRBC/100 WBC Diff 0.02 H (0.00-0.01) X 10*3/uL BUN (7-17) mg/dL POC Glucose (mg/dL) 158 H 229 H (70-110) mg/dL Magnesium (1.6-2.3) mg/dL 12/03/23 12/04/23 12/04/23 Range/Units 20:12 05:19 07:21 RBC (4.10-5.20) X 10*6/uL Hgb (12.0-15.0) g/dL Hct (37.2-46.3) % MCHC (32.0-37.0) g/dL RDW (11.5-14.5) % Immature Gran # (0.00-0.04) X 10*3/uL Lymphocytes # (0.90-5.00) X 10*3/uL NRBC/100 WBC Diff (0.00-0.01) X 10*3/uL BUN 66 H (7-17) mg/dL POC Glucose (mg/dL) 233 H 120 H (70-110) mg/dL Magnesium 1.5 L (1.6-2.3) mg/dL Microbiology - Last 24 Hours (Table) 11/30/23 11:40 Anaerobic Culture - Preliminary Back 11/30/23 09:32 Blood Culture - Preliminary Blood 12/01/23 04:50 Blood Culture - Preliminary Blood Assessment and Plan Assessment: 1. Low back pain; complete loss of L1 vertebral body; moderate lumbar canal sten osis; moderate lumbar spine neuroforaminal stenosis Plan: 1. Low back pain; complete loss of L1 vertebral body; moderate lumbar canal stenosis; moderate lumbar spine neuroforaminal stenosis - I did review the findings of the computed tomography scan lumbar spine with my attending, Dr. Bolivar. Computed tomography scan of lumbar spine does show vacuum disc at L1 with complete loss of body height at L1 and central canal and neuroforaminal stenosis. MRI of thoracic and lumbar spine shows complete loss L1 vertebral body; stenosis from T12-L3 and retrolisthesis of L2-L3. Due to injury leading to instability of spine patient does likely need surgical stabilization at L1 in the form of T11-L3 stabilization. Surgery for T11-L3 stabilization for L1 fracture scheduled for today pending other specialty clearances and family decision. Remain Nothing by mouth at this time. withhold blood thinners. We'll continue to follow patient during stay in hospital. 2. Appreciate medical, ID, pulmonology management 3. Pain management - [place] 4. DVT prophylaxis - withhold thinners at this time 5. GI prophylaxis - protonix 6. PT/OT - WBAT w/walker and assistance 7. Encourage incentive spirometer use Time with Patient: Less than 30
[2023-12-04 11:30] LABS: Basophils # (A) 0.05 X 10*3/uL (0.00-0.10); Basophils % (A) 0.5 %; Eosinophils # (A) 0.11 X 10*3/uL (0.04-0.35); Eosinophils % (A) 1.1 %; HCT 31.1 % (37.2-46.3); HGB 9.6 g/dL (12.0-15.0); Lymphocytes # (A) 0.73 X 10*3/uL (0.90-5.00); Lymphocytes % (A) 7.6 %; MCH 30.1 pg (27.0-32.0); MCHC 30.9 g/dL (32.0-37.0); MCV 97.5 FL (80.0-97.0); Mean Platelet Volume 11.3 FL (9.5-12.2); Monocytes # (A) 0.66 X 10*3/uL (0.20-1.00); Monocytes % (A) 6.9 %; NRBC Per 100 WBC 0.02 X 10*3/uL (0.00-0.01); Neutrophils # (A) 7.89 X 10*3/uL (1.80-7.70); Platelet Count 265 X 10*3/uL (140-440); RBC 3.19 X 10*6/uL (4.10-5.20); WBC 9.62 X 10*3/uL (4.50-10.00)
--- NOTE | 2023-12-04 13:31 | P.PN ---
Subjective Progress Note Date: 12/04/23 I am seeing this patient in consultation today 11/27/2023 after she was sent from her local ECF after being noted to be short of breath and hypoxic. Patient is a 88-year-old white female with past medical history significant for congestive heart failure, chronic hypoxemic respiratory failure on 2 L O2 at baseline, diabetes mellitus, hypertension, hyperlipidemia, and recent right- sided hip fracture with prolonged hospitalization at outside facility. She resides at [facility]. She had a recent hospitalization at our facility in September of this year for congestive heart failure. Echocardiogram done 10/09/2023 showed a preserved left ventricular ejection fraction, moderate mitral regurgitation, moderate to severe tricuspid regurgitation, and severe pulmonary hypertension. There was a repeat hospital admission earlier in October of this year for similar symptoms. She was incidentally noted to be influenza A positive. She was discharged back to her ECF 11/06/2023. She has been taking Lasix 40 mg twice daily. She has completed her course of Tamiflu. Patient returns after progressively worsening dyspnea while at [facility]. She was noted to be hypoxic on her chronic 2 L/min nasal cannula. She was brought in by EMS yesterday afternoon. Patient is currently resting in bed, on 4 L/min nasal cannula, in no acute distress. She does have worsening lower extremity edema. Denies any chest pain, heart palpitations, lightheadedness, orthopnea, PND. Denies any fevers, chills, cough, hemoptysis. Chest x-ray done on arrival appears to show diffuse pulmonary edema and mild cardiomegaly. Superimposed multifocal pneumonia could be within the differential. CBC does show leukocytosis with a WBC count of 22.4, hemoglobin 9.5, hematocrit 30.4, platelets 157. BMP on arrival: Sodium 135, potassium 5.3, chloride 106, serum bicarb 23, BUN 60, creatinine 1.23, glucose 531. Lactic 1.4. Troponin less than 0.012. NT proBNP 3100. Procalcitonin 0.35. Urinalysis shows small leukocyte esterase and pyuria. Negative for influenza, RSV, COVID. Patient is empirically covered on azithromycin and Rocephin. Vital signs are stable. On today's evaluation of 11/28/2023, the patient is being seen for a follow-up. Slightly improved compared to yesterday and the patient is currently on 40 Suboxone by nasal cannula with a pulse ox of 97%. Responding to the diuretics and the patient is currently in negative fluid balance. The white cell count is 16.8 with a hemoglobin of 10.5 and a platelet count of 179. The rest of the blood work and electrolytes are stable. Creatinine is up to 1.3 with a BUN of 45 and a sodium levels at 142. Potassium level needs to be replaced at 2.9. The patient remains on IV Rocephin. The patient is also on IV Lasix 40 mg every 12 hours. There is a single blood culture that showed gram-positive cocci in clusters, likely contaminant. This is 1 out of 2 bottles. Urine culture is showing gram-negative bacillus. Overall condition is stable. Hemodynamically stable. No hypotension. No fever. No significant tachycardia. On today's evaluation of 11/28/2023, the patient is feeling well. Less short of breath compared to yesterday. CHF is being optimized. The patient is still being diuresed with IV Lasix 40 mg every 12 hours. Fluid balance is -1 L over the past 24 hours. Renal function is stable with a BUN of 16 and creatinine 1.2 and a sodium levels at 140. Potassium level is at 3.6. The patient is currently on 4 L of O2 nasal cannula with a pulse ox of 98% and the oxygenation is stable and this can be gradually weaned off. The patient is responding nicely to diuretics. No clear indication for pneumonia. Nevertheless, the blood culture was presumptive MRSA in the urine culture was also positive for ESBL producing E. coli. The patient's UA showed small significant abnormalities. Procalcitonin level is at 0.26. Current antibiotic coverage includes Rocephin and vancomycin. The patient is seen today November 30, 2023 in follow-up on the regular medical floor. She is currently resting comfortably in bed. Awake and alert in no acute distress. She is maintaining good O2 saturations in the upper 90s on 4 L/min per nasal cannula. Urine culture was positive for Klebsiella pneumoniae. Blood cultures are positive for MRSA. White count 10.1. Hemoglobin 10.0. Platelets 202. Sodium 144. Potassium 3.5. Bicarb 32. BUN 48. Creatinine 1.1. C-reactive protein 5.7. Procalcitonin 0.14. She is continued on DuoNeb inhalations, antibiotics in the form of ertapenem and vancomycin. Remains on oral diuretics. The patient is seen today December 01, 2023 in follow-up on the regular medical floor. She is sitting up at the bedside. Feeling a bit better today compared to yesterday. She is maintaining O2 saturations in the 90s on room air. Urine culture was positive for Klebsiella pneumoniae. Blood culture was positive for MRSA. White count 10.9. Hemoglobin 9.5. Platelets 211. Sodium 138. P otassium 4.1. Bicarb 33. BUN 54. Creatinine 1.05. Glucose 245. Chest x-ray revealed much improved aeration about the perihilar regions and residual perihilar infiltrate and pulmonary venous congestion. CT of the lumbar spine revealed complete loss of vertebral body height of L1 vertebrae. Superimposed infection is not excluded. No subcutaneous organizing fluid collection. Degenerative changes noted. He is continued on ertapenem and vancomycin. Remains on bronchodilators. Remains on diuretics. The patient is seen today December 02, 2023 in follow-up on the regular medical floor. She is currently resting comfortably in bed. Awake and alert in no acute distress. Maintaining good O2 saturations in the mid 90s on room air. She has been afebrile. Hemodynamically stable. Blood cultures were positive for MRSA. Urine culture was positive for Klebsiella pneumoniae. She is continued on vancomycin and Invanz. Follow-up blood culture revealing no growth thus far. Glucose 196. Creatinine 0.98. She is continued on DuoNeb ventilations. Transition to oral diuretics. No accurate I & O. The patient is seen today December 03, 2023 in follow-up on the regular medical floor. She is awake and alert in no acute distress. Resting fairly comfortably in bed. She continues to maintain good O2 saturations in the 90s on room air. She has been afebrile. Hemodynamically stable. MRI of the spine is pending. Follow-up blood cultures revealed no growth. Wound culture of the back revealed no growth. White count 9.6. Hemoglobin 10.1. Platelets 256. Sodium 141. Potassium 5.1. Bicarb 30. BUN 77. Creatinine 0.99. Glucose 105. She remains on bronchodilators. Remains on oral diuretics. Antibiotics in the form of vancomycin. The patient is seen today December 04, 2023 in follow-up on the regular medical floor. She remains awake and alert in no acute distress. She denies any worsening shortness of breath, cough or congestion. He is maintaining good O2 saturations in the 90s on room air. She is afebrile. Hemodynamically stable. MRI of the spine revealed severe degenerative spine changes from L1-L3 with severe compression fracture and complete vertebral height loss of L1 vertebral body. The plan is for possible surgical intervention today. White count 9.6. Hemoglobin 9.6. Platelets 265. Sodium 141. Potassium 3.8. Bicarb 29. BUN 66. Creatinine 0.96. She remains on vancomycin. Infectious disease is following Objective - Vital Signs Vital signs: Vital Signs Temp 97.6 F 12/04/23 07:56 Pulse 70 12/04/23 12:37 Resp 16 12/04/23 08:00 BP 124/74 12/04/23 07:56 Pulse Ox 99 12/04/23 08:31 FiO2 Intake & Output 12/03/23 12/04/23 12/04/23 18:59 06:59 18:59 Intake Total 100 440 Output Total 1100 150 Balance -1000 290 Weight 64 kg Intake: Oral 100 440 Output: Urine 1100 150 Other: Voiding Method Diaper Diaper Diaper External Catheter External Catheter External Catheter # Voids 1 - Exam GENERAL EXAM: Alert, pleasant 88-year-old female, resting in bed, on room air, in no apparent distress. HEAD: Normocephalic and atraumatic EYES: Normal reaction of pupils, equal size. NOSE: Clear with pink turbinates. THROAT: No erythema or exudates. NECK: No masses, no JVD. CHEST: No chest wall deformity. LUNGS: Equal air entry with bibasilar crackles. No wheeze, rhonchi or focal dullness. No conversational dyspnea. CVS: S1 and S2 normal with soft grade 1/6 systolic murmur, regular rhythm. No other extra heart sounds ABDOMEN: No hepatosplenomegaly, active bowel sounds, no guarding or rigidity. SPINE: No scoliosis or deformity SKIN: No rashes stage II pressure ulcer of the midline back CENTRAL NERVOUS SYSTEM: No focal deficits, tone is normal in all 4 extremities. EXTREMITIES: There is 2+ bilateral lower extremity pitting edema. Clubbing, or cyanosis. Peripheral pulses are intact. - Labs CBC & Chem 7: 12/04/23 07:21 12/04/23 07:21 Labs: Abnormal Lab Results - Last 24 Hours (Table) 12/03/23 12/03/23 12/04/23 Range/Units 17:11 20:12 05:19 RBC (4.10-5.20) X 10*6/uL Hgb (12.0-15.0) g/dL Hct (37.2-46.3) % MCV (80.0-97.0) FL MCHC (32.0-37.0) g/dL RDW (11.5-14.5) % Immature Gran # (0.00-0.04) X 10*3/uL Neutrophils # (1.80-7.70) X 10*3/uL Lymphocytes # (0.90-5.00) X 10*3/uL NRBC/100 WBC Diff (0.00-0.01) X 10*3/uL BUN (7-17) mg/dL POC Glucose (mg/dL) 229 H 233 H 120 H (70-110) mg/dL Magnesium (1.6-2.3) mg/dL 12/04/23 12/04/23 12/04/23 Range/Units 07:21 07:21 11:05 RBC 3.19 L (4.10-5.20) X 10*6/uL Hgb 9.6 L (12.0-15.0) g/dL Hct 31.1 L (37.2-46.3) % MCV 97.5 H (80.0-97.0) FL MCHC 30.9 L (32.0-37.0) g/dL RDW 16.0 H (11.5-14.5) % Immature Gran # 0.18 H (0.00-0.04) X 10*3/uL Neutrophils # 7.89 H (1.80-7.70) X 10*3/uL Lymphocytes # 0.73 L (0.90-5.00) X 10*3/uL NRBC/100 WBC Diff 0.02 H (0.00-0.01) X 10*3/uL BUN 66 H (7-17) mg/dL POC Glucose (mg/dL) 138 H (70-110) mg/dL Magnesium 1.5 L (1.6-2.3) mg/dL Microbiology - Last 24 Hours (Table) 12/01/23 04:50 Blood Culture - Preliminary Blood 11/30/23 11:40 Anaerobic Culture - Preliminary Back 11/30/23 09:32 Blood Culture - Preliminary Blood Assessment and Plan Assessment: Acute on chronic hypoxemic respiratory failure, likely secondary to exacerbation of diastolic congestive heart failure, and superimposed pneumonia is felt to be less likely. Chest x-ray initially showed diffuse patchy fluffy infiltrates and mild cardiomegaly concerning for pulmonary edema and/or multifocal pneumonia is within the differential. NT proBNP was elevated at 3100. The patient responding nicely to diuretics. Currently on room air and follow-up chest x-ray shows significant improvement. Chronic diastolic heart failure and valvular heart disease with moderate to severe mitral regurgitation and severe tricuspid regurgitation with secondary pulmonary hypertension. Left ventricular ejection fraction was estimated at 55 to 60% on most recent echocardiogram. Severe mitral regurgitation Chronic hypoxemic respiratory failure, secondary to above Vertebral loss at L1 with question of possible infection Leukocytosis, recovered Acute urinary tract infection, ESBL producing Klebsiella pneumoniae with a mildly abnormal UA. Could be colonization versus true infection. Completed Invanz Methicillin resistant Staphylococcus aureus in the blood cultures. Currently on vancomycin. Acute kidney injury, creatinine is stable and improved Benign essential hypertension History of hyperlipidemia Diabetes mellitus type 2 History of fall with right hip fracture and recent complicated hospital stay at outside facility ECF resident Plan: The patient was seen and evaluated Medications and labs reviewed MRI of the spine completed May require spine stabilization surgery The patient is considered high risk from the pulmonary standpoint Could be cleared for surgery if necessary and if cleared by cardiology and infectious disease I have personally seen and examined the patient, performed the documentation and the assessment and plan as written. Number of minutes spent on the visit: 10.
--- NOTE | 2023-12-04 14:45 | P.PN ---
Subjective Progress Note Date: 12/04/23 Principal diagnosis: Reason for follow-up is MRSA bacteremia Patient is a 88-year-old female with a past medical history significant for diabetes mellitus hypertension pneumonia heart failure patient recently did have a fall leading to the right hip fracture status postsurgical repair since then the patient seem to have a problem with a nonhealing wound to the mid back area, patient was brought to the hospital for shortness of breath and hypoxemia she did have a positive culture with ESBL Klebsiella and blood culture positive for MRSA prompting this consultation On today's evaluation that is 12/04/2023, Patient is afebrile patient is currently on room air and denies having any shortness of breath, the patient denies any chest pain or cough, the patient denies any nausea vomiting did not have any abdominal pain and no diarrhea, back pain is currently controlled. Patient white count normalized to 9.62, creatinine 0.96 Vanco trough 15.4, sed rate of 80 blood culture repeat so far negative Objective - Vital Signs Vital signs: Vital Signs Temp 97.6 F 12/04/23 07:56 Pulse 70 12/04/23 08:42 Resp 16 12/04/23 08:00 BP 124/74 12/04/23 07:56 Pulse Ox 99 12/04/23 08:31 FiO2 Intake & Output 12/03/23 12/04/23 12/04/23 18:59 06:59 18:59 Intake Total 100 440 Output Total 1100 150 Balance -1000 290 Weight 64 kg Intake: Oral 100 440 Output: Urine 1100 150 Other: Voiding Method Diaper Diaper Diaper External Catheter External Catheter External Catheter # Voids 1 - Exam GENERAL DESCRIPTION: An elderly female lying in bed in no distress RESPIRATORY SYSTEM: Unlabored breathing , decreased breath sounds at bases HEART: S1 S2 regular rate and rhythm , ABDOMEN: Soft , no tenderness EXTREMITIES: No edema feet - Labs CBC & Chem 7: 12/04/23 07:21 12/04/23 07:21 Labs: Abnormal Lab Results - Last 24 Hours (Table) 12/03/23 12/03/23 12/03/23 Range/Units 11:17 17:11 20:12 BUN (7-17) mg/dL POC Glucose (mg/dL) 158 H 229 H 233 H (70-110) mg/dL Magnesium (1.6-2.3) mg/dL 12/04/23 12/04/23 Range/Units 05:19 07:21 BUN 66 H (7-17) mg/dL POC Glucose (mg/dL) 120 H (70-110) mg/dL Magnesium 1.5 L (1.6-2.3) mg/dL Microbiology - Last 24 Hours (Table) 11/30/23 11:40 Anaerobic Culture - Preliminary Back 11/30/23 09:32 Blood Culture - Preliminary Blood 12/01/23 04:50 Blood Culture - Preliminary Blood Assessment and Plan (1) MRSA bacteremia Current Visit: Yes Status: Acute Code(s): R78.81 - BACTEREMIA; B95.62 - METHICILLIN RESIS STAPH INFCT [facility] Code(s): 09568087436705537 (2) Stage III pressure ulcer of back Current Visit: No Status: Acute Code(s): L89.103 - PRESSURE ULCER OF UNSPECIFIED PART OF BACK, STAGE 3 SNOMED Code(s): 46038150367644913 Plan: 1patient with MRSA bacteremia in this patient presented to hospital with increasing shortness of breath however no significant cough or sputum production clinically not behaving as pneumonia the patient did have a wound to the mid back area did have some purulent drainage which has been culture and high clinical suspicion for possible lumbar spine disease versus paraspinal abscess 2- CT of the lumbar spine with contrast shows vertebral body loss at L1 question of super added infection, patient did have MRI of the lumbar spine which mention nonspecific T2 hyperintensity and gadolinium enhancement of the intervertebral disc and L1 vertebral body concerning for possible infection 3-patient has been evaluated by orthopedics and awaiting decision regarding surgery by family 4-patient to vancomycin pharmacy to dose target trough of 15 as high clinical suspicion for possible lumbar discitis and osteomyelitis treatment of this infection without surgical treatment will be very minimal and if the patient family refuses any surgery hospice may be a better option this was discussed with the medical team yesterday for now continue with vancomycin Dictation was produced using [employer] software. please excuse any grammatical, word or spelling errors.
--- NOTE | 2023-12-04 15:50 | P.PN ---
Progress Note - Text Progress Note Date: 12/04/23 Spoke with family members as well as position and the family as well as anesthesia. I discussed with the family members the options for treatment. The patient has an eroded L1 vertebral body and essentially unstable fracture at this level with severe kyphotic change. In fact she is so severely kyphotic that it is causing a wound ulcer to form on her low back over this area. This is the level of the conus and ideally we would like to protect her neurologically as well as stability. This becomes a matter of quality of life. She would need stabilization to up into down from this fracture site. This would reconstruct the area as well as stabilize area for transfers as well as allow her the chance to possibly get up and move and protect her neurologically. She is very high risk for surgery however and in talking with anesthesia reviewing notes of cardiology and other physicians who have determined at the time that she has a very high risk for remaining intubated after surgery and possibly not coming off the vent. This is unacceptable for surgical risk in her as we are trying to stabilize her to give her a chance to get up and move more and do more. At this point then due to the family members as well being somewhat tentative on surgical plans I have decided at this time we will forego surgery and she will be treated in conservative manner. Should things change neurologically or the family members changes her mind we could always revisit however due to her risk for surgery outweigh the potential benefits is unlikely that we will proceed further with surgical intervention.
[2023-12-04 16:38] LABS: Glucose,Whole Blood 250 mg/dL (70-110)
[2023-12-04 21:00] LABS: Glucose,Whole Blood 230 mg/dL (70-110)
[2023-12-05 05:54] LABS: Glucose,Whole Blood 254 mg/dL (70-110)
--- NOTE | 2023-12-05 07:05 | P.PN ---
Subjective Progress Note Date: 12/04/23 This is an 88-year-old female who was recently admitted with acute CHF with exacerbation along with generalized weakness and concerns for pneumonia being closely monitored. Multiple medical consultations following including orthopedic and MRI of the spine is currently ordered and pending for today. In fectious disease following as well and feels there may be concern for abscess or infectious process within the spine as patient did have MRSA bacteremia. Most recent blood culture is negative and patient is maintained on antibiotics. Orthopedics discussing surgery options and awaiting family decision 12/04/2023 Patient is seen and evaluated in follow-up this morning with multiple medical consultations following including infectious disease maintained on IV antibiotics in the form of vancomycin as there is concern for an abscess or infectious process within the spine as there is noted fractures. Orthopedics following recommending surgical intervention. Case was discussed thoroughly with family who is a neurologist and willing to proceed with the surgical intervention given patient's risks versus benefits to ensure a better quality of life. Patient was evaluated by cardiology as well as pulmonary deemed as extremely high risk although if family were agreeable and if absolutely neces meredith okay to proceed with the surgery. Patient is currently afebrile with no reports of chest pain or shortness of breath. Patient is n.p.o. in the event patient will undergo surgery. Review of systems: Constitutional: No reports of fatigue, fever, or chills Cardiovascular: No reports of chest pain or palpitations Respiratory: No reports of shortness of breath or cough GI: No reports of nausea, no reports of vomiting, no diarrhea : No reports of dysuria or retention Neurovascular: reports of generalized weakness, some back pain All medications have been reviewed PHYSICAL EXAMINATION: GENERAL: The patient is alert and oriented x2-3, Well developed, well nourished. Elderly appearing HEENT: Pupils are round and equally reacting to light. EOMI. no scleral icterus. No conjunctival pallor. Normocephalic, atraumatic. No pharyngeal erythema. No thyromegaly. CARDIOVASCULAR: S1 and S2 muffled PULMONARY: diminished breath sounds bilaterally with no wheezing or rhonchi noted. ABDOMEN: soft. obese. Nontender on exam. non-distended, normoactive bowel sounds. No palpable organomegaly. MUSCULOSKELETAL: No joint swelling or deformity. EXTREMITIES: No cyanosis, clubbing, or pedal edema. There is some mild edema noted on bilateral lower ankles left worse than right NEUROLOGICAL: Gross neurological examination did not reveal any focal deficits. Diffuse weakness SKIN: No rashes. Assessment: Acute pneumonia, community-acquired present on admission with acute on chronic hypoxic respiratory failure Acute on chronic diastolic congestive heart failure, acute exacerbation Acute renal injury possibly secondary to diuretic use improved Possible acute urinary tract infection, present on admission with Klebsiella pneumonia in the urine, although suspicion is low most likely asymptomatic bacteriuria as patient was not having symptoms L1 compression fracture with severe degenerative joint disease, there is concern for lumbar discitis and osteomyelitis Gait dysfunction with generalized weakness Leukocytosis, improved Left ear pain with bleeding secondary to excoriation and trauma MRSA bacteremia with source likely near the L1 compression fracture with concerns of abscess GI prophylaxis DVT prophylaxis Full code Plan: Recommend to continue with current medications and management with multiple medical consultations following Infectious disease following maintained on antibiotics and there is concern for abscess within the spine as patient had positive bacteremia with MRSA. Most recent cultures are negative Patient underwent lumbar spine MRI with orthopedics following with a nonspecific T2 hyperintensity and enhancement of the intervertebral discs and L1 vertebral body that extends into the T12-L1 to L1-2 recommending possible nuclear scan for specifically of diagnosis of infection. Family had discussed extensively with orthopedics regarding risks versus benefit and overall treatment plan moving forward for better quality of life and patient's family willing to proceed with surgical intervention. Patient was evaluated by cardiology as well as pulmonary deemed extremely high risk although if absolutely necessary and family understands the risks including difficulty extubation and not coming off the vent postsurgery then okay to proceed. After further evaluation and discussion with anesthesia patient was deemed not a surgical candidate at this time and not willing to proceed with the surgery. This was discussed with infectious disease and patient will now need a PICC line for continued IV antibiotics or possible discussion of hospice. CODE STATUS was addressed with family and they would like to keep the patient full CODE STATUS and not willing or ready to discuss hospice at this time. PT/OT therapy daily as patient is with weakness and progressively more weak. Patient has had multiple hospitalizations and has been to rehab a few times most recently. Patient's family would like to take the patient home once discharged as they were not happy with the care she was receiving at [facility]. Will follow-up with repeat labs in the a.m. Patient will most likely require a PICC line and IV antibiotics on discharge. Will discuss with case management regarding discharge planning and arranging for this outpatient and verification with insurance Due to multiple complex medical issues, prognosis is guarded The impression and plan of care has been dictated by Rosario Murphy, nurse practitioner as directed. Dr. Bhargav MD I have performed a history and examination and MDM of this patient, discussed the same with the dictator, and agree with the dictator's assessment and plan as written ,documented as a scribe. Based on total visit time, I have performed more than 50% of the visit. Any additional findings or plans will be noted. Objective - Vital Signs Vital signs: Vital Signs Temp 97.6 F 12/04/23 07:56 Pulse 70 12/04/23 08:42 Resp 16 12/04/23 08:00 BP 124/74 12/04/23 07:56 Pulse Ox 99 12/04/23 08:31 FiO2 Intake & Output 12/03/23 12/04/23 12/04/23 18:59 06:59 18:59 Intake Total 100 440 Output Total 1100 150 Balance -1000 290 Weight 64 kg Intake: Oral 100 440 Output: Urine 1100 150 Other: Voiding Method Diaper Diaper Diaper External Catheter External Catheter External Catheter # Voids 1 - Labs CBC & Chem 7: 12/04/23 07:21 12/04/23 07:21 Labs: Abnormal Lab Results - Last 24 Hours (Table) 12/03/23 12/03/23 12/03/23 Range/Units 06:49 11:17 17:11 RBC 3.39 L (4.10-5.20) X 10*6/uL Hgb 10.1 L (12.0-15.0) g/dL Hct 32.2 L (37.2-46.3) % MCHC 31.4 L (32.0-37.0) g/dL RDW 15.9 H (11.5-14.5) % Immature Gran # 0.27 H (0.00-0.04) X 10*3/uL Lymphocytes # 0.82 L (0.90-5.00) X 10*3/uL NRBC/100 WBC Diff 0.02 H (0.00-0.01) X 10*3/uL BUN (7-17) mg/dL POC Glucose (mg/dL) 158 H 229 H (70-110) mg/dL Magnesium (1.6-2.3) mg/dL 12/03/23 12/04/23 12/04/23 Range/Units 20:12 05:19 07:21 RBC (4.10-5.20) X 10*6/uL Hgb (12.0-15.0) g/dL Hct (37.2-46.3) % MCHC (32.0-37.0) g/dL RDW (11.5-14.5) % Immature Gran # (0.00-0.04) X 10*3/uL Lymphocytes # (0.90-5.00) X 10*3/uL NRBC/100 WBC Diff (0.00-0.01) X 10*3/uL BUN 66 H (7-17) mg/dL POC Glucose (mg/dL) 233 H 120 H (70-110) mg/dL Magnesium 1.5 L (1.6-2.3) mg/dL Microbiology - Last 24 Hours (Table) 11/30/23 11:40 Anaerobic Culture - Preliminary Back 11/30/23 09:32 Blood Culture - Preliminary Blood 12/01/23 04:50 Blood Culture - Preliminary Blood
--- NOTE | 2023-12-05 08:57 | P.PN ---
Subjective Progress Note Date: 12/05/23 Principal diagnosis: Low back pain; complete loss of L1 vertebral body; moderate lumbar canal stenosis; moderate lumbar spine neuroforaminal stenosis Patient was seen at bedside this morning sitting up in bed with dressing present over spine. I did discuss with patient at bedside the reasoning for foregoing surgical stabilization at this time due to patient's high medical risk. Patient says her back does feel okay at this time. Patient says she has not noted any changes over the past few days. Patient says she is looking forward to working with therapy today. Patient denies any other issues at this time. Objective - Vital Signs Vital signs: Vital Signs Temp 97.5 F L 12/04/23 20:01 Pulse 70 12/05/23 01:06 Resp 14 12/04/23 20:01 BP 122/62 12/05/23 01:06 Pulse Ox 96 12/05/23 01:06 FiO2 Intake & Output 12/04/23 12/05/23 12/05/23 18:59 06:59 18:59 Output Total 900 475 Balance -900 -475 Weight 64.5 kg Output: Urine 900 475 Other: Voiding Method Diaper External Catheter External Catheter - Exam Inspection: Large ulcerated wound present over lower thoracic and upper lumbar spine midline measuring about 8 cm in length by 3 cm in width. Negative for any changes. Positive for ecchymosis surrounding the wound. Sensation: Equal, symmetric, bilaterally intact throughout the upper and lower extremities. Palpation: Moderate TTP surrounding the wound. NTTP throughout rest of exam. Range of motion: full ROM throughout bilateral wrists and elbows in flexion/extension. Limited range of motion in shoulders and forward elevation, external/internal rotation and abduction. Limited range of motion in bilateral hips and flexion/extension secondary to stiffness and some referred pain in the low-back. full ROM in bilateral ankles and knees Motor: 4/5 in all major motor groups in bilateral upper extremities. 4-/5 in resisted left hip and right hip flexion/extension. 4/5 in resisted ankle dorsi/plantar flexion and knee flexion extension bilaterally. Neurovascular: Radial pulses intact, 2+ bilaterally. cap refill <3 sec in digits of UE Special tests: Negative Homans bilaterally. Negative clonus bilaterally. Negative Raffi. - Labs CBC & Chem 7: 12/04/23 07:21 12/04/23 07:21 Labs: Abnormal Lab Results - Last 24 Hours (Table) 12/04/23 12/04/23 12/04/23 Range/Units 07:21 11:05 16:36 RBC 3.19 L (4.10-5.20) X 10*6/uL Hgb 9.6 L (12.0-15.0) g/dL Hct 31.1 L (37.2-46.3) % MCV 97.5 H (80.0-97.0) FL MCHC 30.9 L (32.0-37.0) g/dL RDW 16.0 H (11.5-14.5) % Immature Gran # 0.18 H (0.00-0.04) X 10*3/uL Neutrophils # 7.89 H (1.80-7.70) X 10*3/uL Lymphocytes # 0.73 L (0.90-5.00) X 10*3/uL NRBC/100 WBC Diff 0.02 H (0.00-0.01) X 10*3/uL POC Glucose (mg/dL) 138 H 250 H (70-110) mg/dL 12/04/23 12/05/23 Range/Units 20:58 05:52 RBC (4.10-5.20) X 10*6/uL Hgb (12.0-15.0) g/dL Hct (37.2-46.3) % MCV (80.0-97.0) FL MCHC (32.0-37.0) g/dL RDW (11.5-14.5) % Immature Gran # (0.00-0.04) X 10*3/uL Neutrophils # (1.80-7.70) X 10*3/uL Lymphocytes # (0.90-5.00) X 10*3/uL NRBC/100 WBC Diff (0.00-0.01) X 10*3/uL POC Glucose (mg/dL) 230 H 254 H (70-110) mg/dL Microbiology - Last 24 Hours (Table) 11/30/23 11:40 Anaerobic Culture - Final Back 12/01/23 04:50 Blood Culture - Preliminary Blood Assessment and Plan Assessment: 1. Low back pain; complete loss of L1 vertebral body; moderate lumbar canal stenosis; moderate lumbar spine neuroforaminal stenosis Plan: 1. Low back pain; complete loss of L1 vertebral body; moderate lumbar canal stenosis; moderate lumbar spine neuroforaminal stenosis - I did review the findings of the computed tomography scan lumbar spine with my attending, Dr. Bolivar. Computed tomography scan of lumbar spine does show vacuum disc at L1 with complete loss of body height at L1 and central canal and neuroforaminal stenosis. MRI of thoracic and lumbar spine shows complete loss L1 vertebral body; stenosis from T12-L3 and retrolisthesis of L2-L3. Dr. Boilvar did speak with patient's daughter yesterday. After reviewing notes of other specialties including cardiology and medicine and discussing with anesthesiologi st, we decided to forego surgical stabilization at this time due to the high chance that patient may remain intubated after surgery and be on vent. Recommend conservative measures at this time with PT/OT and continued wound care. Pain medication as needed. Patient is stable from an orthopedic sta ndpoint for discharge. We do recommend patient to follow-up in the outpatient setting with Dr. Bolivar for continued care. At this time orthopedics is signing off. Please do not hesitate to contact us for any further questions. 2. Appreciate medical, ID, pulmonology management 3. Pain management - [place] 4. DVT prophylaxis - aspirin 5. GI prophylaxis - protonix 6. PT/OT - WBAT w/walker and assistance 7. Encourage incentive spirometer use Time with Patient: Less than 30
[2023-12-05 11:49] LABS: Glucose,Whole Blood 234 mg/dL (70-110)
--- NOTE | 2023-12-05 12:38 | P.PN ---
Subjective Progress Note Date: 12/05/23 I am seeing this patient in consultation today 11/27/2023 after she was sent from her local ECF after being noted to be short of breath and hypoxic. Patient is a 88-year-old white female with past medical history significant for congestive heart failure, chronic hypoxemic respiratory failure on 2 L O2 at baseline, diabetes mellitus, hypertension, hyperlipidemia, and recent right- sided hip fracture with prolonged hospitalization at outside facility. She resides at [facility]. She had a recent hospitalization at our facility in September of this year for congestive heart failure. Echocardiogram done 10/09/2023 showed a preserved left ventricular ejection fraction, moderate mitral regurgitation, moderate to severe tricuspid regurgitation, and severe pulmonary hypertension. There was a repeat hospital admission earlier in October of this year for similar symptoms. She was incidentally noted to be influenza A positive. She was discharged back to her ECF 11/06/2023. She has been taking Lasix 40 mg twice daily. She has completed her course of Tamiflu. Patient returns after progressively worsening dyspnea while at [facility]. She was noted to be hypoxic on her chronic 2 L/min nasal cannula. She was brought in by EMS yesterday afternoon. Patient is currently resting in bed, on 4 L/min nasal cannula, in no acute distress. She does have worsening lower extremity edema. Denies any chest pain, heart palpitations, lightheadedness, orthopnea, PND. Denies any fevers, chills, cough, hemoptysis. Chest x-ray done on arrival appears to show diffuse pulmonary edema and mild cardiomegaly. Superimposed multifocal pneumonia could be within the differential. CBC does show leukocytosis with a WBC count of 22.4, hemoglobin 9.5, hematocrit 30.4, platelets 157. BMP on arrival: Sodium 135, potassium 5.3, chloride 106, serum bicarb 23, BUN 60, creatinine 1.23, glucose 531. Lactic 1.4. Troponin less than 0.012. NT proBNP 3100. Procalcitonin 0.35. Urinalysis shows small leukocyte esterase and pyuria. Negative for influenza, RSV, COVID. Patient is empirically covered on azithromycin and Rocephin. Vital signs are stable. On today's evaluation of 11/28/2023, the patient is being seen for a follow-up. Slightly improved compared to yesterday and the patient is currently on 40 Suboxone by nasal cannula with a pulse ox of 97%. Responding to the diuretics and the patient is currently in negative fluid balance. The white cell count is 16.8 with a hemoglobin of 10.5 and a platelet count of 179. The rest of the blood work and electrolytes are stable. Creatinine is up to 1.3 with a BUN of 45 and a sodium levels at 142. Potassium level needs to be replaced at 2.9. The patient remains on IV Rocephin. The patient is also on IV Lasix 40 mg every 12 hours. There is a single blood culture that showed gram-positive cocci in clusters, likely contaminant. This is 1 out of 2 bottles. Urine culture is showing gram-negative bacillus. Overall condition is stable. Hemodynamically stable. No hypotension. No fever. No significant tachycardia. On today's evaluation of 11/28/2023, the patient is feeling well. Less short of breath compared to yesterday. CHF is being optimized. The patient is still being diuresed with IV Lasix 40 mg every 12 hours. Fluid balance is -1 L over the past 24 hours. Renal function is stable with a BUN of 16 and creatinine 1.2 and a sodium levels at 140. Potassium level is at 3.6. The patient is currently on 4 L of O2 nasal cannula with a pulse ox of 98% and the oxygenation is stable and this can be gradually weaned off. The patient is responding nicely to diuretics. No clear indication for pneumonia. Nevertheless, the blood culture was presumptive MRSA in the urine culture was also positive for ESBL producing E. coli. The patient's UA showed small significant abnormalities. Procalcitonin level is at 0.26. Current antibiotic coverage includes Rocephin and vancomycin. The patient is seen today November 30, 2023 in follow-up on the regular medical floor. She is currently resting comfortably in bed. Awake and alert in no acute distress. She is maintaining good O2 saturations in the upper 90s on 4 L/min per nasal cannula. Urine culture was positive for Klebsiella pneumoniae. Blood cultures are positive for MRSA. White count 10.1. Hemoglobin 10.0. Platelets 202. Sodium 144. Potassium 3.5. Bicarb 32. BUN 48. Creatinine 1.1. C-reactive protein 5.7. Procalcitonin 0.14. She is continued on DuoNeb inhalations, antibiotics in the form of ertapenem and vancomycin. Remains on oral diuretics. The patient is seen today December 01, 2023 in follow-up on the regular medical floor. She is sitting up at the bedside. Feeling a bit better today compared to yesterday. She is maintaining O2 saturations in the 90s on room air. Urine culture was positive for Klebsiella pneumoniae. Blood culture was positive for MRSA. White count 10.9. Hemoglobin 9.5. Platelets 211. Sodium 138. P otassium 4.1. Bicarb 33. BUN 54. Creatinine 1.05. Glucose 245. Chest x-ray revealed much improved aeration about the perihilar regions and residual perihilar infiltrate and pulmonary venous congestion. CT of the lumbar spine revealed complete loss of vertebral body height of L1 vertebrae. Superimposed infection is not excluded. No subcutaneous organizing fluid collection. Degenerative changes noted. He is continued on ertapenem and vancomycin. Remains on bronchodilators. Remains on diuretics. The patient is seen today December 02, 2023 in follow-up on the regular medical floor. She is currently resting comfortably in bed. Awake and alert in no acute distress. Maintaining good O2 saturations in the mid 90s on room air. She has been afebrile. Hemodynamically stable. Blood cultures were positive for MRSA. Urine culture was positive for Klebsiella pneumoniae. She is continued on vancomycin and Invanz. Follow-up blood culture revealing no growth thus far. Glucose 196. Creatinine 0.98. She is continued on DuoNeb ventilations. Transition to oral diuretics. No accurate I & O. The patient is seen today December 03, 2023 in follow-up on the regular medical floor. She is awake and alert in no acute distress. Resting fairly comfortably in bed. She continues to maintain good O2 saturations in the 90s on room air. She has been afebrile. Hemodynamically stable. MRI of the spine is pending. Follow-up blood cultures revealed no growth. Wound culture of the back revealed no growth. White count 9.6. Hemoglobin 10.1. Platelets 256. Sodium 141. Potassium 5.1. Bicarb 30. BUN 77. Creatinine 0.99. Glucose 105. She remains on bronchodilators. Remains on oral diuretics. Antibiotics in the form of vancomycin. The patient is seen today December 04, 2023 in follow-up on the regular medical floor. She remains awake and alert in no acute distress. She denies any worsening shortness of breath, cough or congestion. He is maintaining good O2 saturations in the 90s on room air. She is afebrile. Hemodynamically stable. MRI of the spine revealed severe degenerative spine changes from L1-L3 with severe compression fracture and complete vertebral height loss of L1 vertebral body. The plan is for possible surgical intervention today. White count 9.6. Hemoglobin 9.6. Platelets 265. Sodium 141. Potassium 3.8. Bicarb 29. BUN 66. Creatinine 0.96. She remains on vancomycin. Infectious disease is following. The patient is seen today December 05, 2023 in follow-up on the regular medical floor. She is resting in bed. Awake and alert in no acute distress. Based on her high risk for spine stabilization surgery, this was placed on hold for now. She denies any worsening back pain currently. She is maintaining good O2 saturations in the 90s on room air. She is afebrile. Hemodynamically stable. She is continued on oral diuretics, bronchodilators. Remains on vancomycin. Objective - Vital Signs Vital signs: Vital Signs Temp 98.8 F 12/05/23 07:27 Pulse 68 12/05/23 11:48 Resp 16 12/05/23 07:27 BP 145/65 12/05/23 12:13 Pulse Ox 94 L 12/05/23 09:05 FiO2 21 12/05/23 09:05 Intake & Output 12/04/23 12/05/23 12/05/23 18:59 06:59 18:59 Output Total 900 475 Balance -900 -475 Weight 64.5 kg Output: Urine 900 475 Other: Voiding Method Diaper External Catheter External Catheter External Catheter - Exam GENERAL EXAM: Alert, 88-year-old female, resting in bed, on room air, in no apparent distress. HEAD: Normocephalic and atraumatic EYES: Normal reaction of pupils, equal size. NOSE: Clear with pink turbinates. THROAT: No erythema or exudates. NECK: No masses, no JVD. CHEST: No chest wall deformity. LUNGS: Equal air entry with bibasilar crackles. No wheeze, rhonchi or focal dullness. No conversational dyspnea. CVS: S1 and S2 normal with soft grade 1/6 systolic murmur, regular rhythm. No other extra heart sounds ABDOMEN: No hepatosplenomegaly, active bowel sounds, no guarding or rigidity. SPINE: No scoliosis or deformity SKIN: No rashes stage II pressure ulcer of the midline back CENTRAL NERVOUS SYSTEM: No focal deficits, tone is normal in all 4 extremities. EXTREMITIES: There is 2+ bilateral lower extremity pitting edema. Clubbing, or cyanosis. Peripheral pulses are intact. - Labs CBC & Chem 7: 12/04/23 07:21 12/04/23 07:21 Labs: Abnormal Lab Results - Last 24 Hours (Table) 12/04/23 12/04/23 12/05/23 Range/Units 16:36 20:58 05:52 POC Glucose (mg/dL) 250 H 230 H 254 H (70-110) mg/dL 12/05/23 Range/Units 11:48 POC Glucose (mg/dL) 234 H (70-110) mg/dL Microbiology - Last 24 Hours (Table) 11/30/23 11:40 Anaerobic Culture - Final Back 12/01/23 04:50 Blood Culture - Preliminary Blood Assessment and Plan Assessment: Acute on chronic hypoxemic respiratory failure, likely secondary to exacerbation of diastolic congestive heart failure, and superimposed pneumonia is felt to be less likely. Chest x-ray initially showed diffuse patchy fluffy infiltrates and mild cardiomegaly concerning for pulmonary edema and/or multifocal pneumonia is within the differential. NT proBNP was elevated at 3100. The patient responded nicely to diuretics. Currently on room air and follow-up chest x-ray shows significant improvement. Chronic diastolic heart failure and valvular heart disease with moderate to severe mitral regurgitation and severe tricuspid regurgitation with secondary pulmonary hypertension. Left ventricular ejection fraction was estimated at 55 to 60% on most recent echocardiogram. Severe mitral regurgitation Chronic hypoxemic respiratory failure, secondary to above Vertebral loss at L1 with question of possible infection Leukocytosis, recovered Acute urinary tract infection, ESBL producing Klebsiella pneumoniae with a mildly abnormal UA. Could be colonization versus true infection. Completed Invanz Methicillin resistant Staphylococcus aureus in the blood cultures. Currently on vancomycin. Acute kidney injury, creatinine is stable and improved Benign essential hypertension History of hyperlipidemia Diabetes mellitus type 2 History of fall with right hip fracture and recent complicated hospital stay at outside facility ECF resident Plan: The patient was seen and evaluated Medications and labs reviewed Surgery of the spine on hold for now Antibiotics per ID services Plan is for home with home care at discharge I have personally seen and examined the patient, performed the documentation and the assessment and plan as written. Number of minutes spent on the visit: 10.
--- NOTE | 2023-12-05 13:27 | P.PN ---
Subjective Progress Note Date: 12/05/23 This is an 88-year-old female who was recently admitted with acute CHF with exacerbation along with generalized weakness and concerns for pneumonia being closely monitored. Multiple medical consultations following including orthopedic and MRI of the spine is currently ordered and pending for today. Infectious disease following as well and feels there may be concern for abscess or infectious process within the spine as patient did have MRSA bacteremia. Most recent blood culture is negative and patient is maintained on antibiotics. Orthopedics discussing surgery options and awaiting family decision 12/04/2023 Patient is seen and evaluated in follow-up this morning with multiple medical consultations following including infectious disease maintained on IV antibiotics in the form of vancomycin as there is concern for an abscess or infectious process within the spine as there is noted fractures. Orthopedics following recommending surgical intervention. Case was discussed thoroughly with family who is a neurologist and willing to proceed with the surgical intervention given patient's risks versus benefits to ensure a better quality of life. Patient was evaluated by cardiology as well as pulmonary deemed as extremely high risk although if family were agreeable and if absolutely necessar y okay to proceed with the surgery. Patient is currently afebrile with no reports of chest pain or shortness of breath. Patient is n.p.o. in the event patient will undergo surgery. 12/05/2023 Patient is seen in evaluation today on the medical floor. She was pending surgical intervention yesterday however anesthesia did not feel that patient was a surgical candidate and was extremely high risk surgery was canceled. Patient continues on IV vancomycin with possibility of needing a PICC line for outpatient antibiotics on discharge this will be further discussed with infectious disease. Patient's family does not want patient to return to subacute rehab and patient does want to return home with her family on discharge. Blood sugar remains elevated in the 230s. Review of systems: Constitutional: No reports of fatigue, fever, or chills Cardiovascular: No reports of chest pain or palpitations Respiratory: No reports of shortness of breath or cough GI: No reports of nausea, no reports of vomiting, no diarrhea : No reports of dysuria or retention Neurovascular: reports of generalized weakness, some back pain All medications have been reviewed PHYSICAL EXAMINATION: GENERAL: The patient is alert and oriented x2-3, Well developed, well nourished. Elderly appearing HEENT: Pupils are round and equally reacting to light. EOMI. no scleral icterus. No conjunctival pallor. Normocephalic, atraumatic. No pharyngeal erythema. No thyromegaly. CARDIOVASCULAR: S1 and S2 muffled PULMONARY: diminished breath sounds bilaterally with no wheezing or rhonchi noted. ABDOMEN: soft. obese. Nontender on exam. non-distended, normoactive bowel sounds. No palpable organomegaly. MUSCULOSKELETAL: No joint swelling or deformity. EXTREMITIES: No cyanosis, clubbing, or pedal edema. There is some mild edema noted on bilateral lower ankles left worse than right NEUROLOGICAL: Gross neurological examination did not reveal any focal deficits. Diffuse weakness SKIN: No rashes. Assessment: Acute pneumonia, community-acquired present on admission with acute on chronic hypoxic respiratory failure Acute on chronic diastolic congestive heart failure, acute exacerbation Acute renal injury possibly secondary to diuretic use improved Possible acute urinary tract infection, present on admission with Klebsiella pneumonia in the urine, although suspicion is low most likely asymptomatic b acteriuria as patient was not having symptoms L1 compression fracture with severe degenerative joint disease, there is concern for lumbar discitis and osteomyelitis; felt to be high risk for surgical intervention. Gait dysfunction with generalized weakness Leukocytosis, improved Left ear pain with bleeding secondary to excoriation and trauma MRSA bacteremia with source likely near the L1 compression fracture with concerns of abscess GI prophylaxis DVT prophylaxis Full code Plan: -Recommend to continue with current medications and management with multiple medical consultations following -Infectious disease following maintained on antibiotics and there is concern for abscess within the spine as patient had positive bacteremia with MRSA. Most recent cultures are negative -Patient underwent lumbar spine MRI with orthopedics following with a nonspecific T2 hyperintensity and enhancement of the intervertebral discs and L1 vertebral body that extends into the T12-L1 to L1-2 recommending possible nuclear scan for specifically of diagnosis of infection. -Family had discussed extensively with orthopedics regarding risks versus benefit and overall treatment plan moving forward for better quality of life and patient's family willing to proceed with surgical intervention. Patient was asya luated by cardiology as well as pulmonary deemed extremely high risk although if absolutely necessary and family understands the risks including difficulty extubation and not coming off the vent postsurgery then okay to proceed. After further evaluation and discussion with anesthesia patient was deemed not a surgical candidate at this time and not willing to proceed with the surgery. This was discussed with infectious disease and patient will now need a PICC line for 6 weeks of IV vancomycin on discharge. -CODE STATUS was addressed with family and they would like to keep the patient full CODE STATUS and not willing or ready to discuss hospice at this time. -PT/OT therapy daily as patient is with weakness and progressively more weak. Patient has had multiple hospitalizations and has been to rehab a few times most recently. Patient's family would like to take the patient home once discharged as they were not happy with the care she was receiving at [facility]. -Will follow-up with repeat labs in the a.m. -PICC line will be ordered and likely Discharge on thursday with coordination of outpatient antibiotics 6 weeks of vancomycin recommended by ID. Plan of care discussed over the phone with patients family agreeing with PICC Line and home likely Thursday. The impression and plan of care has been dictated by Rubi Glynn, Nurse Practitioner as directed. Dr. Bhargav MD I have performed a history and physical examination and medical decision making of this patient, discussed the same with the dictator, and agree with the dictators assessment and plan as written, documented as a scribe. Based on total visit time, I have performed more than 50% of this visit. Objective - Vital Signs Vital signs: Vital Signs Temp 98.8 F 12/05/23 07:27 Pulse 68 12/05/23 11:48 Resp 16 12/05/23 07:27 BP 145/65 12/05/23 12:13 Pulse Ox 94 L 12/05/23 09:05 FiO2 21 12/05/23 09:05 Intake & Output 12/04/23 12/05/23 12/05/23 18:59 06:59 18:59 Output Total 900 475 Balance -900 -475 Weight 64.5 kg Output: Urine 900 475 Other: Voiding Method Diaper External Catheter External Catheter External Catheter - Labs CBC & Chem 7: 12/04/23 07:21 12/04/23 07:21 Labs: Abnormal Lab Results - Last 24 Hours (Table) 12/04/23 12/04/23 12/05/23 Range/Units 16:36 20:58 05:52 POC Glucose (mg/dL) 250 H 230 H 254 H (70-110) mg/dL 12/05/23 Range/Units 11:48 POC Glucose (mg/dL) 234 H (70-110) mg/dL Microbiology - Last 24 Hours (Table) 11/30/23 11:40 Anaerobic Culture - Final Back 12/01/23 04:50 Blood Culture - Preliminary Blood Assessment and Plan Time with Patient: Less than 30
--- NOTE | 2023-12-05 14:29 | P.PN ---
Subjective Progress Note Date: 12/05/23 Principal diagnosis: Reason for follow-up is MRSA bacteremia Patient is a 88-year-old female with a past medical history significant for diabetes mellitus hypertension pneumonia heart failure patient recently did have a fall leading to the right hip fracture status postsurgical repair since then the patient seem to have a problem with a nonhealing wound to the mid back area, patient was brought to the hospital for shortness of breath and hypoxemia she did have a positive culture with ESBL Klebsiella and blood culture positive for MRSA prompting this consultation On today's evaluation that is 12/05/2023, patient has been afebrile, patient is breathing comfortably and is currently on room air, patient denies having any significant cough no chest pain shortness of breath, patient denies nausea vomiting or diarrhea and no abdominal pain, pain to the back slightly decreased in intensity. No new labs has been repeated today repeat blood culture has been negative Objective - Vital Signs Vital signs: Vital Signs Temp 98.8 F 12/05/23 07:27 Pulse 68 12/05/23 11:48 Resp 16 12/05/23 07:27 BP 145/65 12/05/23 12:13 Pulse Ox 94 L 12/05/23 09:05 FiO2 21 12/05/23 09:05 Intake & Output 12/04/23 12/05/23 12/05/23 18:59 06:59 18:59 Output Total 900 475 Balance -900 -475 Weight 64.5 kg Output: Urine 900 475 Other: Voiding Method Diaper External Catheter External Catheter External Catheter - Exam GENERAL DESCRIPTION: An elderly female lying in bed in no distress RESPIRATORY SYSTEM: Unlabored breathing , decreased breath sounds at bases HEART: S1 S2 regular rate and rhythm , ABDOMEN: Soft , no tenderness EXTREMITIES: No edema feet - Labs CBC & Chem 7: 12/04/23 07:21 12/04/23 07:21 Labs: Abnormal Lab Results - Last 24 Hours (Table) 12/04/23 12/04/23 12/05/23 Range/Units 16:36 20:58 05:52 POC Glucose (mg/dL) 250 H 230 H 254 H (70-110) mg/dL 12/05/23 Range/Units 11:48 POC Glucose (mg/dL) 234 H (70-110) mg/dL Microbiology - Last 24 Hours (Table) 11/30/23 11:40 Anaerobic Culture - Final Back 12/01/23 04:50 Blood Culture - Preliminary Blood Assessment and Plan (1) MRSA bacteremia Current Visit: Yes Status: Acute Code(s): R78.81 - BACTEREMIA; B95.62 - METHICILLIN RESIS STAPH INFCT CAUSING DISEASES CLASSD [id number] SNOMED Code(s): 34088165513720472 (2) Stage III pressure ulcer of back Current Visit: No Status: Acute Code(s): L89.103 - PRESSURE ULCER OF UNSPECIFIED PART OF BACK, STAGE 3 SNOMED Code(s): 57600916401145747 Plan: 1patient with MRSA bacteremia in this patient presented to hospital with increasing shortness of breath however no significant cough or sputum production clinically not behaving as pneumonia the patient did have a wound to the mid back area did have some purulent drainage which has been culture and high clinical suspicion for possible lumbar spine disease versus paraspinal abscess 2- CT of the lumbar spine with contrast shows vertebral body loss at L1 question of super added infection, patient did have MRI of the lumbar spine which mention nonspecific T2 hyperintensity and gadolinium enhancement of the intervertebral disc and L1 vertebral body concerning for possible infection 3-patient has been evaluated by orthopedics and family agreed for surgery however the patient was considered to be high risk for any surgical procedure by anesthesia and surgery has been canceled 4-patient to continue with the vancomycin pharmacy to dose you need a PICC line and a 6-week course of IV vancomycin on discharge however as the most surgical drainage was done there is still risk of failure of the IV antibiotic this was explained in detail to the daughter at the bedside and multiple question concern were answered in layman terms Dictation was produced using [employer] dictation software. please excuse any grammatical, word or spelling errors. Time with Patient: Less than 30
[2023-12-05 17:02] LABS: Glucose,Whole Blood 192 mg/dL (70-110)
[2023-12-05 19:50] LABS: Glucose,Whole Blood 354 mg/dL (70-110)
[2023-12-05] MEDS: INSULIN DETEMIR (LEVEMIR) 100 UNIT/ML SYR SQ SCH (21:42)
[2023-12-06 05:49] LABS: Glucose,Whole Blood 23 mg/dL (70-110)
[2023-12-06] MEDS: DEXTROSE 50% SYRINGE 50 ML IVP STA (05:52)
[2023-12-06 06:20] LABS: Glucose,Whole Blood 139 mg/dL (70-110)
[2023-12-06 06:24] LABS: African American GFR (CKD) 50 (>60 ml/min/1.73 sqM); Anion Gap 4 mmol/L; Blood Urea Nitrogen 62 mg/dL (7-17); Carbon Dioxide 31 mmol/L (22-30); Chloride 108 mmol/L (98-107); Non-African American GFR(CKD) 43 (>60 ml/min/1.73 sqM); Potassium 3.8 mmol/L (3.5-5.1); Sodium 143 mmol/L (137-145)
[2023-12-06 06:43] LABS: Glucose 21 mg/dL (74-99)
[2023-12-06 07:51] LABS: Glucose,Whole Blood 97 mg/dL (70-110)
[2023-12-06 08:12] LABS: Glucose,Whole Blood 81 mg/dL (70-110)
[2023-12-06 08:30] LABS: Glucose,Whole Blood 104 mg/dL (70-110)
[2023-12-06] MEDS: ERGOCALCIFEROL 1,250 MCG (50,000 IU) CAPSULE PO SCH (11:30)
[2023-12-06 11:45] LABS: Glucose,Whole Blood 138 mg/dL (70-110)
--- NOTE | 2023-12-06 12:00 | XR ---
EXAMINATION TYPE: XR chest 2V DATE OF EXAM: 12/06/2023 COMPARISON: 12/03/2023 HISTORY: 88-year-old female with hypoxia TECHNIQUE: AP and lateral views FINDINGS: Part of the limits of normal in size. Coarse reticular opacities throughout. Worsening interstitial o pacity with small bilateral pleural effusions and worsening focal right upper lobe consolidation. Sev ere focal kyphosis at thoracolumbar junction secondary to a vertebral compression collapse IMPRESSION: Worsening interstitial infiltrates with ongoing small effusions. Also, focal worsening airspace disea se right upper lobe.
--- NOTE | 2023-12-06 12:28 | P.PN ---
Subjective Progress Note Date: 12/06/23 I am seeing this patient in consultation today 11/27/2023 after she was sent from her local ECF after being noted to be short of breath and hypoxic. Patient is a 88-year-old white female with past medical history significant for congestive heart failure, chronic hypoxemic respiratory failure on 2 L O2 at baseline, diabetes mellitus, hypertension, hyperlipidemia, and recent right- sided hip fracture with prolonged hospitalization at outside facility. She resides at [facility]. She had a recent hospitalization at our facility in September of this year for congestive heart failure. Echocardiogram done 10/09/2023 showed a preserved left ventricular ejection fraction, moderate mitral regurgitation, moderate to severe tricuspid regurgitation, and severe pulmonary hypertension. There was a repeat hospital admission earlier in October of this year for similar symptoms. She was incidentally noted to be influenza A positive. She was discharged back to her ECF 11/06/2023. She has been taking Lasix 40 mg twice daily. She has completed her course of Tamiflu. Patient returns after progressively worsening dyspnea while at [facility]. She was noted to be hypoxic on her chronic 2 L/min nasal cannula. She was brought in by EMS yesterday afternoon. Patient is currently resting in bed, on 4 L/min nasal cannula, in no acute distress. She does have worsening lower extremity edema. Denies any chest pain, heart palpitations, lightheadedness, orthopnea, PND. Denies any fevers, chills, cough, hemoptysis. Chest x-ray done on arrival appears to show diffuse pulmonary edema and mild cardiomegaly. Superimposed multifocal pneumonia could be within the differential. CBC does show leukocytosis with a WBC count of 22.4, hemoglobin 9.5, hematocrit 30.4, platelets 157. BMP on arrival: Sodium 135, potassium 5.3, chloride 106, serum bicarb 23, BUN 60, creatinine 1.23, glucose 531. Lactic 1.4. Troponin less than 0.012. NT proBNP 3100. Procalcitonin 0.35. Urinalysis shows small leukocyte esterase and pyuria. Negative for influenza, RSV, COVID. Patient is empirically covered on azithromycin and Rocephin. Vital signs are stable. On today's evaluation of 11/28/2023, the patient is being seen for a follow-up. Slightly improved compared to yesterday and the patient is currently on 40 Suboxone by nasal cannula with a pulse ox of 97%. Responding to the diuretics and the patient is currently in negative fluid balance. The white cell count is 16.8 with a hemoglobin of 10.5 and a platelet count of 179. The rest of the blood work and electrolytes are stable. Creatinine is up to 1.3 with a BUN of 45 and a sodium levels at 142. Potassium level needs to be replaced at 2.9. The patient remains on IV Rocephin. The patient is also on IV Lasix 40 mg every 12 hours. There is a single blood culture that showed gram-positive cocci in clusters, likely contaminant. This is 1 out of 2 bottles. Urine culture is showing gram-negative bacillus. Overall condition is stable. Hemodynamically stable. No hypotension. No fever. No significant tachycardia. On today's evaluation of 11/28/2023, the patient is feeling well. Less short of breath compared to yesterday. CHF is being optimized. The patient is still being diuresed with IV Lasix 40 mg every 12 hours. Fluid balance is -1 L over the past 24 hours. Renal function is stable with a BUN of 16 and creatinine 1.2 and a sodium levels at 140. Potassium level is at 3.6. The patient is currently on 4 L of O2 nasal cannula with a pulse ox of 98% and the oxygenation is stable and this can be gradually weaned off. The patient is responding nicely to diuretics. No clear indication for pneumonia. Nevertheless, the blood culture was presumptive MRSA in the urine culture was also positive for ESBL producing E. coli. The patient's UA showed small significant abnormalities. Procalcitonin level is at 0.26. Current antibiotic coverage includes Rocephin and vancomycin. The patient is seen today November 30, 2023 in follow-up on the regular medical floor. She is currently resting comfortably in bed. Awake and alert in no acute distress. She is maintaining good O2 saturations in the upper 90s on 4 L/min per nasal cannula. Urine culture was positive for Klebsiella pneumoniae. Blood cultures are positive for MRSA. White count 10.1. Hemoglobin 10.0. Platelets 202. Sodium 144. Potassium 3.5. Bicarb 32. BUN 48. Creatinine 1.1. C-reactive protein 5.7. Procalcitonin 0.14. She is continued on DuoNeb inhalations, antibiotics in the form of ertapenem and vancomycin. Remains on oral diuretics. The patient is seen today December 01, 2023 in follow-up on the regular medical floor. She is sitting up at the bedside. Feeling a bit better today compared to yesterday. She is maintaining O2 saturations in the 90s on room air. Urine culture was positive for Klebsiella pneumoniae. Blood culture was positive for MRSA. White count 10.9. Hemoglobin 9.5. Platelets 211. Sodium 138. P otassium 4.1. Bicarb 33. BUN 54. Creatinine 1.05. Glucose 245. Chest x-ray revealed much improved aeration about the perihilar regions and residual perihilar infiltrate and pulmonary venous congestion. CT of the lumbar spine revealed complete loss of vertebral body height of L1 vertebrae. Superimposed infection is not excluded. No subcutaneous organizing fluid collection. Degenerative changes noted. He is continued on ertapenem and vancomycin. Remains on bronchodilators. Remains on diuretics. The patient is seen today December 02, 2023 in follow-up on the regular medical floor. She is currently resting comfortably in bed. Awake and alert in no acute distress. Maintaining good O2 saturations in the mid 90s on room air. She has been afebrile. Hemodynamically stable. Blood cultures were positive for MRSA. Urine culture was positive for Klebsiella pneumoniae. She is continued on vancomycin and Invanz. Follow-up blood culture revealing no growth thus far. Glucose 196. Creatinine 0.98. She is continued on DuoNeb ventilations. Transition to oral diuretics. No accurate I & O. The patient is seen today December 03, 2023 in follow-up on the regular medical floor. She is awake and alert in no acute distress. Resting fairly comfortably in bed. She continues to maintain good O2 saturations in the 90s on room air. She has been afebrile. Hemodynamically stable. MRI of the spine is pending. Follow-up blood cultures revealed no growth. Wound culture of the back revealed no growth. White count 9.6. Hemoglobin 10.1. Platelets 256. Sodium 141. Potassium 5.1. Bicarb 30. BUN 77. Creatinine 0.99. Glucose 105. She remains on bronchodilators. Remains on oral diuretics. Antibiotics in the form of vancomycin. The patient is seen today December 04, 2023 in follow-up on the regular medical floor. She remains awake and alert in no acute distress. She denies any worsening shortness of breath, cough or congestion. He is maintaining good O2 saturations in the 90s on room air. She is afebrile. Hemodynamically stable. MRI of the spine revealed severe degenerative spine changes from L1-L3 with severe compression fracture and complete vertebral height loss of L1 vertebral body. The plan is for possible surgical intervention today. White count 9.6. Hemoglobin 9.6. Platelets 265. Sodium 141. Potassium 3.8. Bicarb 29. BUN 66. Creatinine 0.96. She remains on vancomycin. Infectious disease is following. The patient is seen today December 05, 2023 in follow-up on the regular medical floor. She is resting in bed. Awake and alert in no acute distress. Based on her high risk for spine stabilization surgery, this was placed on hold for now. She denies any worsening back pain currently. She is maintaining good O2 saturations in the 90s on room air. She is afebrile. Hemodynamically stable. She is continued on oral diuretics, bronchodilators. Remains on vancomycin. The patient is seen today December 06, 2023 in follow-up on the regular medical floor. She is currently resting in bed. Awake and alert in no acute distress. Family is at the bedside. She is maintaining good O2 saturations in the 90s on room air. She has been afebrile. Hemodynamically stable. He did have some issues with low blood sugars this morning. Current glucose 138. Chest x-ray continues to show bilateral perihilar infiltrates with increasing infiltrate of the right upper lobe. She remains on bronchodilators. She remains on vancomycin. Objective - Vital Signs Vital signs: Vital Signs Temp 95.4 F L 12/06/23 07:08 Pulse 67 12/06/23 11:27 Resp 17 12/06/23 11:27 BP 147/72 12/06/23 11:27 Pulse Ox 97 12/06/23 11:27 FiO2 21 12/05/23 09:05 Intake & Output 12/05/23 12/06/23 12/06/23 17:59 06:59 18:59 Output Total Balance Weight Output: Urine Other: Voiding Method # Voids # Bowel Movements - Exam GENERAL EXAM: Alert, frail 88-year-old female, on room air, in no apparent distress. HEAD: Normocephalic and atraumatic EYES: Normal reaction of pupils, equal size. NOSE: Clear with pink turbinates. THROAT: No erythema or exudates. NECK: No masses, no JVD. CHEST: No chest wall deformity. LUNGS: Equal air entry with bibasilar crackles. No wheeze, rhonchi or focal du llness. No conversational dyspnea. CVS: S1 and S2 normal with soft grade 1/6 systolic murmur, regular rhythm. No other extra heart sounds ABDOMEN: No hepatosplenomegaly, active bowel sounds, no guarding or rigidity. SPINE: No scoliosis or deformity SKIN: No rashes stage II pressure ulcer of the midline back CENTRAL NERVOUS SYSTEM: No focal deficits, tone is normal in all 4 extremities. EXTREMITIES: There is 2+ bilateral lower extremity pitting edema. Clubbing, or cyanosis. Peripheral pulses are intact. - Labs CBC & Chem 7: 12/04/23 07:21 12/06/23 05:35 Labs: Abnormal Lab Results - Last 24 Hours (Table) 12/05/23 12/05/23 12/05/23 Range/Units 11:48 16:59 19:48 Chloride (98-107) mmol/L Carbon Dioxide (22-30) mmol/L BUN (7-17) mg/dL Creatinine (0.52-1.04) mg/dL Glucose (74-99) mg/dL POC Glucose (mg/dL) 234 H 192 H 354 H (70-110) mg/dL 12/06/23 12/06/23 12/06/23 Range/Units 05:35 05:42 06:18 Chloride 108 H (98-107) mmol/L Carbon Dioxide 31 H (22-30) mmol/L BUN 62 H (7-17) mg/dL Creatinine 1.14 H (0.52-1.04) mg/dL Glucose 21 L* (74-99) mg/dL POC Glucose (mg/dL) 23 L 139 H (70-110) mg/dL 12/06/23 Range/Units 11:43 Chloride (98-107) mmol/L Carbon Dioxide (22-30) mmol/L BUN (7-17) mg/dL Creatinine (0.52-1.04) mg/dL Glucose (74-99) mg/dL POC Glucose (mg/dL) 138 H (70-110) mg/dL Microbiology - Last 24 Hours (Table) 11/30/23 09:32 Blood Culture - Final Blood Assessment and Plan Assessment: Acute on chronic hypoxemic respiratory failure, likely secondary to exacerbation of diastolic congestive heart failure, and superimposed pneumonia is felt to be less likely. Chest x-ray initially showed diffuse patchy fluffy infiltrates and mild cardiomegaly concerning for pulmonary edema and/or multifocal pneumonia is within the differential. NT proBNP was elevated at 3100. The patient responded nicely to diuretics. Currently on room air Chronic diastolic heart failure and valvular heart disease with moderate to severe mitral regurgitation and severe tricuspid regurgitation with secondary p ulmonary hypertension. Left ventricular ejection fraction was estimated at 55 to 60% on most recent echocardiogram. Severe mitral regurgitation Chronic hypoxemic respiratory failure, secondary to above Vertebral loss at L1 with question of possible infection Leukocytosis, recovered Acute urinary tract infection, ESBL producing Klebsiella pneumoniae with a mildly abnormal UA. Could be colonization versus true infection. Completed Invanz Methicillin resistant Staphylococcus aureus in the blood cultures. Currently on vancomycin. Acute kidney injury, creatinine is stable and improved Benign essential hypertension History of hyperlipidemia Diabetes mellitus type 2 History of fall with right hip fracture and recent complicated hospital stay at outside facility ECF resident Plan: The patient was seen and evaluated Chest x-ray, medications and labs reviewed Increase Lasix 40 milligrams to 3 times a day Antibiotics per ID services Plan is for home with home care at discharge I have personally seen and examined the patient, performed the documentation and the assessment and plan as written. Number of minutes spent on the visit: 10.
--- NOTE | 2023-12-06 15:02 | P.PN ---
Subjective Progress Note Date: 12/06/23 Principal diagnosis: Reason for follow-up is MRSA bacteremia Patient is a 88-year-old female with a past medical history significant for diabetes mellitus hypertension pneumonia heart failure patient recently did have a fall leading to the right hip fracture status postsurgical repair since then the patient seem to have a problem with a nonhealing wound to the mid back area, patient was brought to the hospital for shortness of breath and hypoxemia she did have a positive culture with ESBL Klebsiella and blood culture positive for MRSA prompting this consultation On today's evaluation that is 12/06/2023,the patient denies any fever or any chills, patient is breathing comfortably on room air, the patient denies chest pain shortness of breath and no significant cough, patient denies abdominal pain, no nausea vomiting or diarrhea. Denies any worsening pain to the lower back area. No new labs were obtained today blood culture repeat negative Objective - Vital Signs Vital signs: Vital Signs Temp 97.4 F L 12/06/23 13:17 Pulse 64 12/06/23 13:17 Resp 17 12/06/23 13:17 BP 121/66 12/06/23 13:17 Pulse Ox 96 12/06/23 13:17 FiO2 21 12/05/23 09:05 Intake & Output 12/05/23 12/06/23 12/06/23 17:59 06:59 18:59 Output Total Balance Weight Output: Urine Other: Voiding Method # Voids # Bowel Movements - Exam GENERAL DESCRIPTION: An elderly female lying in bed in no distress RESPIRATORY SYSTEM: Unlabored breathing , decreased breath sounds at bases HEART: S1 S2 regular rate and rhythm , ABDOMEN: Soft , no tenderness EXTREMITIES: No edema feet - Labs CBC & Chem 7: 12/04/23 07:21 12/06/23 05:35 Labs: Abnormal Lab Results - Last 24 Hours (Table) 12/05/23 12/05/23 12/06/23 Range/Units 16:59 19:48 05:35 Chloride 108 H (98-107) mmol/L Carbon Dioxide 31 H (22-30) mmol/L BUN 62 H (7-17) mg/dL Creatinine 1.14 H (0.52-1.04) mg/dL Glucose 21 L* (74-99) mg/dL POC Glucose (mg/dL) 192 H 354 H (70-110) mg/dL 12/06/23 12/06/23 12/06/23 Range/Units 05:42 06:18 11:43 Chloride (98-107) mmol/L Carbon Dioxide (22-30) mmol/L BUN (7-17) mg/dL Creatinine (0.52-1.04) mg/dL Glucose (74-99) mg/dL POC Glucose (mg/dL) 23 L 139 H 138 H (70-110) mg/dL Microbiology - Last 24 Hours (Table) 12/01/23 04:50 Blood Culture - Final Blood 11/30/23 09:32 Blood Culture - Final Blood Assessment and Plan (1) MRSA bacteremia Current Visit: Yes Status: Acute Code(s): R78.81 - BACTEREMIA; B95.62 - METHICILLIN RESIS STAPH INFCT CAUSING DISEASES CLASSD ELSR SNOMED Code(s): 81888102282003683 (2) Stage III pressure ulcer of back Current Visit: No Status: Acute Code(s): L89.103 - PRESSURE ULCER OF UNSPECIFIED PART OF BACK, STAGE 3 SNOMED Code(s): 69196490268622333 Plan: 1patient with MRSA bacteremia in this patient presented to hospital with increasing shortness of breath however no significant cough or sputum production clinically not behaving as pneumonia the patient did have a wound to the mid back area did have some purulent drainage which has been culture and high clinical suspicion for possible lumbar spine disease versus paraspinal abscess 2- CT of the lumbar spine with contrast shows vertebral body loss at L1 question of super added infection, patient did have MRI of the lumbar spine which mention nonspecific T2 hyperintensity and gadolinium enhancement of the intervertebral disc and L1 vertebral body concerning for possible infection 3-patient has been evaluated by orthopedics and family agreed for surgery however the patient was considered to be high risk for any surgical procedure by anesthesia and surgery has been canceled 4-patient to continue with the vancomycin pharmacy to dose, will order PICC line for outpatient IV antibiotic therapy and monitor clinical course closely Dictation was produced using [employer] dictation software. please excuse any grammatical, word or spelling errors. Time with Patient: Less than 30
[2023-12-06 16:33] LABS: Glucose,Whole Blood 234 mg/dL (70-110)
[2023-12-06] MEDS: FUROSEMIDE 40 MG TAB PO SCH (16:46)
[2023-12-06] MEDS: VANCOMYCIN TROUGH DUE 1 EACH MISC MISCELLANE ONE (18:31)
[2023-12-06 20:28] LABS: Glucose,Whole Blood 357 mg/dL (70-110)
[2023-12-06] MEDS ORDERED: oxyCODONE-APAP 5-325MG 1 EACH TAB PO PRN (22:31)
--- NOTE | 2023-12-06 22:39 | P.PN ---
Subjective Progress Note Date: 12/06/23 This is an 88-year-old female who was recently admitted with acute CHF with exacerbation along with generalized weakness and concerns for pneumonia being closely monitored. Multiple medical consultations following including orthopedic and MRI of the spine is currently ordered and pending for today. Infectious disease following as well and feels there may be concern for abscess or infectious process within the spine as patient did have MRSA bacteremia. Most recent blood culture is negative and patient is maintained on antibiotics. Orthopedics discussing surgery options and awaiting family decision 12/04/2023 Patient is seen and evaluated in follow-up this morning with multiple medical consultations following including infectious disease maintained on IV antibiotics in the form of vancomycin as there is concern for an abscess or infectious process within the spine as there is noted fractures. Orthopedics following recommending surgical intervention. Case was discussed thoroughly with family who is a neurologist and willing to proceed with the surgical intervention given patient's risks versus benefits to ensure a better quality of life. Patient was evaluated by cardiology as well as pulmonary deemed as extremely high risk although if family were agreeable and if absolutely necessar y okay to proceed with the surgery. Patient is currently afebrile with no reports of chest pain or shortness of breath. Patient is n.p.o. in the event patient will undergo surgery. 12/05/2023 Patient is seen in evaluation today on the medical floor. She was pending surgical intervention yesterday however anesthesia did not feel that patient was a surgical candidate and was extremely high risk surgery was canceled. Patient continues on IV vancomycin with possibility of needing a PICC line for outpatient antibiotics on discharge this will be further discussed with infectious disease. Patient's family does not want patient to return to subacute rehab and patient does want to return home with her family on discharge. Blood sugar remains elevated in the 230s. 12/06/2023 Patient is evaluated today resting in bed. Family at the bedside. Not a surgical candidate. Repeat blood cultures are negative so far. Patient continues on IV vancomycin; scheduled for PICC line placement tomorrow. ID recommending 6 weeks of outpatient antibiotic therapy with vancomycin. Blood glucose into the 50s to day and levemir was adjusted. Patient is now hyperglycemic. Creatinine up to 1.14 today. Lasix was increased to 40 mg TID by cardiology. Review of systems: Constitutional: No reports of fatigue, fever, or chills Cardiovascular: No reports of chest pain or palpitations Respiratory: No reports of shortness of breath or cough GI: No reports of nausea, no reports of vomiting, no diarrhea : No reports of dysuria or retention Neurovascular: reports of generalized weakness, some back pain All medications have been reviewed PHYSICAL EXAMINATION: GENERAL: The patient is alert and oriented x2-3, Well developed, well nourished. Elderly appearing HEENT: Pupils are round and equally reacting to light. EOMI. no scleral icterus. No conjunctival pallor. Normocephalic, atraumatic. No pharyngeal erythema. No thyromegaly. CARDIOVASCULAR: S1 and S2 muffled PULMONARY: diminished breath sounds bilaterally with no wheezing or rhonchi noted. ABDOMEN: soft. obese. Nontender on exam. non-distended, normoactive bowel sounds. No palpable organomegaly. MUSCULOSKELETAL: No joint swelling or deformity. EXTREMITIES: No cyanosis, clubbing, or pedal edema. There is some mild edema noted on bilateral lower ankles left worse than right NEUROLOGICAL: Gross neurological examination did not reveal any focal deficits. Diffuse weakness SKIN: No rashes. Assessment: Acute pneumonia, community-acquired present on admission with acute on chronic hypoxic respiratory failure Acute on chronic diastolic congestive heart failure, acute exacerbation Acute renal injury possibly secondary to diuretic use improved Possible acute urinary tract infection, present on admission with Klebsiella pneumonia in the urine, although suspicion is low most likely asymptomatic bacteriuria as patient was not having symptoms L1 compression fracture with severe degenerative joint disease, there is concern for lumbar discitis and osteomyelitis; felt to be high risk for surgical intervention. Gait dysfunction with generalized weakness Leukocytosis, improved Left ear pain with bleeding secondary to excoriation and trauma MRSA bacteremia with source likely near the L1 compression fracture with concerns of abscess GI prophylaxis DVT prophylaxis Full code Plan: -Recommend to continue with current medications and management with multiple medical consultations following -Infectious disease following maintained on antibiotics and there is concern for abscess within the spine as patient had positive bacteremia with MRSA. Most recent cultures are negative -Patient underwent lumbar spine MRI with orthopedics following with a nonspecific T2 hyperintensity and enhancement of the intervertebral discs and L1 vertebral body that extends into the T12-L1 to L1-2 recommending possible nuclear scan for specifically of diagnosis of infection. -Family had discussed extensively with orthopedics regarding risks versus benefit and overall treatment plan moving forward for better quality of life and patient's family willing to proceed with surgical intervention. Patient was evaluated by cardiology as well as pulmonary deemed extremely high risk although if absolutely necessary and family understands the risks including difficulty extubation and not coming off the vent postsurgery then okay to proceed. After further evaluation and discussion with anesthesia patient was deemed not a surgical candidate at this time and not willing to proceed with the surgery. This was discussed with infectious disease and patient will now need a PICC line for 6 weeks of IV vancomycin on discharge. -CODE STATUS was addressed with family and they would like to keep the patient full CODE STATUS and not willing or ready to discuss hospice at this time. -PT/OT therapy daily as patient is with weakness and progressively more weak. Patient has had multiple hospitalizations and has been to rehab a few times most recently. Patient's family would like to take the patient home once discharged as they were not happy with the care she was receiving at [facility]. -Will follow-up with repeat labs in the a.m. -PICC line will be ordered and likely Discharge on thursday with coordination of outpatient antibiotics 6 weeks of vancomycin recommended by ID. Plan of care discussed over the phone with patients family agreeing with PICC Line and home likely Thursday. The impression and plan of care has been dictated by Rubi Glynn, Nurse Practitioner as directed. Dr. Bhargav MD I have performed a history and physical examination and medical decision making of this patient, discussed the same with the dictator, and agree with the dictators assessment and plan as written, documented as a scribe. Based on total visit time, I have performed more than 50% of this visit. Objective - Vital Signs Vital signs: Vital Signs Temp 97.4 F L 12/06/23 13:17 Pulse 64 12/06/23 21:11 Resp 19 12/06/23 18:25 BP 115/53 12/06/23 18:25 Pulse Ox 94 L 12/06/23 18:28 FiO2 21 12/05/23 09:05 Intake & Output 12/06/23 12/06/23 12/07/23 06:59 18:59 06:59 Output Total 750 Balance -750 Weight Output: Urine 750 Other: # Voids 2 - Labs CBC & Chem 7: 12/04/23 07:21 12/06/23 05:35 Labs: Abnormal Lab Results - Last 24 Hours (Table) 12/06/23 12/06/23 12/06/23 Range/Units 05:35 05:42 06:18 Chloride 108 H (98-107) mmol/L Carbon Dioxide 31 H (22-30) mmol/L BUN 62 H (7-17) mg/dL Creatinine 1.14 H (0.52-1.04) mg/dL Glucose 21 L* (74-99) mg/dL POC Glucose (mg/dL) 23 L 139 H (70-110) mg/dL 12/06/23 12/06/23 12/06/23 Range/Units 11:43 16:31 20:25 Chloride (98-107) mmol/L Carbon Dioxide (22-30) mmol/L BUN (7-17) mg/dL Creatinine (0.52-1.04) mg/dL Glucose (74-99) mg/dL POC Glucose (mg/dL) 138 H 234 H 357 H (70-110) mg/dL Microbiology - Last 24 Hours (Table) 12/01/23 04:50 Blood Culture - Final Blood 11/30/23 09:32 Blood Culture - Final Blood Assessment and Plan Time with Patient: Less than 30
[2023-12-07 06:02] LABS: Glucose,Whole Blood 260 mg/dL (70-110)
[2023-12-07] MEDS ORDERED: HYDROmorphone 0.5 MG/0.5 ML SYRINGE IVP PRN (07:33)
[2023-12-07 08:37] LABS: Basophils # (A) 0.06 X 10*3/uL (0.00-0.10); Basophils % (A) 0.6 %; Eosinophils # (A) 0.15 X 10*3/uL (0.04-0.35); Eosinophils % (A) 1.5 %; HCT 29.2 % (37.2-46.3); Lymphocytes # (A) 0.89 X 10*3/uL (0.90-5.00); Lymphocytes % (A) 8.9 %; MCH 29.4 pg (27.0-32.0); MCHC 30.8 g/dL (32.0-37.0); MCV 95.4 FL (80.0-97.0); Mean Platelet Volume 10.9 FL (9.5-12.2); Monocytes # (A) 0.64 X 10*3/uL (0.20-1.00); Monocytes % (A) 6.4 %; NRBC Per 100 WBC 0 X 10*3/uL (0.00-0.01); Neutrophils % (A) 81.5 %; Platelet Count 282 X 10*3/uL (140-440); RBC 3.06 X 10*6/uL (4.10-5.20); RDW 16.2 % (11.5-14.5); WBC 9.95 X 10*3/uL (4.50-10.00)
[2023-12-07 08:46] LABS: BUN/Creat Ratio 49.92 Ratio (12.00-20.00); Blood Urea Nitrogen 64.9 mg/dL (9.0-27.0); Calcium 8.8 mg/dL (8.7-10.3); Carbon Dioxide 27.1 mmol/L (21.6-31.8); Chloride 101 mmol/L (96-109); Glucose 263 mg/dL (70-110); Magnesium 2.1 mg/dL (1.5-2.4); Potassium 5.3 mmol/L (3.5-5.5); Sodium 138 mmol/L (135-145)
[2023-12-07 11:21] LABS: Glucose,Whole Blood 291 mg/dL (70-110)
--- NOTE | 2023-12-07 12:18 | P.NPCON ---
History of Present Illness - Reason for Consult chronic renal failure - History of Present Illness Reason for consultation: Chronic kidney disease History of present illness: Patient is a 88-year-old female seen in renal consultation for chronic kidney disease. Patient has chronic kidney disease stage IIIa with baseline creatinine in the range of 1-1.3. Patient came to the hospital on November 28, 2023 due to shortness of breath. Patient was noted to be hyperglycemic. Patient came from an extended care facility. Patient is being followed by infectious disease and has been on antibiotics. Patient's shortness of breath is improved however there has been concern for lumbar spine disease versus paraspinal abscess. Patient does have wound in the mid back area. Patient wants to avoid surgery. Patient is noted to have MRSA bacteremia and is receiving IV antibiotics. She needs a PICC line for long-term antibiotics. Patient has history of diabetes. She denies history of coronary artery disease. Patient has been receiving diuretics as his concern for CHF more so compared to pneumonia. She was receiving oral diuretics but was started on IV Lasix today. She denies use of nonsteroidals. She denies gross hematuria or dysuria. Hemodynamically stable. Vital signs are stable. General: No acute distress. HEENT: Head exam is unremarkable. On nasal cannula. LUNGS: No audible rhonchi or wheezes. HEART: Rate and Rhythm are regular. ABDOMEN: Nontender. EXTREMITITES: Trace edema. Past Medical History Past Medical History: Heart Failure, Diabetes Mellitus, Hypertension, Pneumonia Additional Past Medical History / Comment(s): new CHF 09/2023, "kidney damage" History of Any Multi-Drug Resistant Organisms: MRSA Date of last positivie culture/infection: 11/26/23 MDRO Source:: Blood Past Surgical History: Hysterectomy Additional Past Surgical History / Comment(s): R hip, cataract sx Past Anesthesia/Blood Transfusion Reactions: No Reported Reaction Smoking Status: Never smoker Past Alcohol Use History: None Reported Past Drug Use History: None Reported Medications and Allergies Home Medications Medication Instructions Recorded Confirmed Type Ergocalciferol (Vitamin D2) 1,250 mcg PO APPIAH 10/08/23 11/26/23 History [Drisdol (50,000 Iu)] carvediloL [Coreg] 25 mg PO BID 10/08/23 11/26/23 History hydrALAZINE HCL [Apresoline] 50 mg PO TID@0800,1300,1800 10/08/23 11/26/23 History Potassium Chloride ER [K-Dur 20] 40 meq PO BID tab 10/19/23 11/26/23 Rx predniSONE [Deltasone] 20 mg PO DAILY #2 tab 10/19/23 11/26/23 Rx Albuterol Sulfate [Albuterol 2 puff INHALATION RT-Q6H 11/02/23 11/26/23 History Sulfate Hfa] Aspirin [Vazalore] 81 mg PO DAILY 11/02/23 11/26/23 History Atorvastatin [Lipitor] 20 mg PO DAILY 11/02/23 11/26/23 History NIFEdipine XL [Procardia XL] 60 mg PO DAILY 11/02/23 11/26/23 History Omeprazole 20 mg PO DAILY 11/02/23 11/26/23 History rOPINIRole HCL [Requip] 4 mg PO BID 11/02/23 11/26/23 History Collagenase [Santyl Ointment] 1 applic TOPICAL DAILY each 11/06/23 11/26/23 Rx DULoxetine HCL [Cymbalta] 60 mg PO BID 11/26/23 11/26/23 History Furosemide [Lasix] 40 mg PO BID@0800,1600 11/26/23 11/26/23 History Insulin Glargine-Yfgn 30 units SQ DAILY 11/26/23 11/26/23 History Insulin Lispro [Insulin Lispro See Protocol SQ AC-TID 11/26/23 11/26/23 History Kwikpen U-100] Ipratropium-Albuterol Nebulize 3 ml INHALATION DIRECTED 11/26/23 11/26/23 History [Duoneb 0.5 mg-3 mg/3 ml Soln] Allergies Allergy/AdvReac Type Severity Reaction Status Date / Time No Known Allergies Allergy Verified 11/26/23 14:40 Physical Exam Vitals: Vital Signs Temp Pulse Pulse Pulse Pulse Pulse Pulse 12/07/23 08:30 72 12/07/23 08:18 70 12/07/23 07:49 97.6 F 68 12/07/23 01:20 98.2 F 70 12/06/23 21:11 64 12/06/23 21:01 66 12/06/23 20:20 97.7 F 66 12/06/23 18:28 68 67 68 12/06/23 18:25 68 12/06/23 15:22 64 12/06/23 15:11 68 12/06/23 13:17 97.4 F L 64 Pulse Resp BP Pulse Ox Pulse Ox Pulse Ox Pulse Ox 12/07/23 08:30 12/07/23 08:18 93 L 12/07/23 07:49 18 121/60 94 L 12/07/23 01:20 12 111/67 94 L 12/06/23 21:11 12/06/23 21:01 12/06/23 20:20 16 118/63 98 12/06/23 18:28 72 99 97 94 L 12/06/23 18:25 19 115/53 94 L 12/06/23 15:22 12/06/23 15:11 12/06/23 13:17 17 121/66 96 Pulse Ox 12/07/23 08:30 12/07/23 08:18 12/07/23 07:49 12/07/23 01:20 12/06/23 21:11 12/06/23 21:01 12/06/23 20:20 12/06/23 18:28 80 L 12/06/23 18:25 12/06/23 15:22 12/06/23 15:11 12/06/23 13:17 Intake and Output 12/06/23 12/07/23 12/07/23 22:59 06:59 14:59 Output Total 750 350 Balance -750 -350 Output: Urine 750 350 Other: # Voids 2 Weight 68.5 kg Results - Lab Results Most recent lab results Calcium 8.8 mg/dL (8.7-10.3) 12/07/23 05:03 Phosphorus 3.6 mg/dL (2.5-4.5) 11/26/23 12:53 Magnesium 2.1 mg/dL (1.5-2.4) 12/07/23 05:03 12/07/23 05:03 12/07/23 05:03 Assessment and Plan Plan: Assessment: 1. 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 No proteinuria or blood on UA. Creatinine in the range of 1-1.3. Higher with diuresis. 2. Volume overload. 3. Severe sepsis secondary to MRSA bacteremia with concern for paraspinal abscess. On antibiotics per infectious disease. Also seen by orthopedic surg charles. 4. Anemia of chronic kidney disease. 5. Diabetes mellitus. 6. Hypertension with chronic kidney disease. Controlled. Plan: Maintain IV Lasix for now. Check renal ultrasound. Add Aranesp. Avoid nephrotoxins. Continue to monitor renal function and urine output. Cleared for PICC line placement in the dominant arm. Thank you for the consultation. I will continue to follow the patient with you during her hospital stay.
--- NOTE | 2023-12-07 12:29 | P.PN ---
Subjective Progress Note Date: 12/07/23 Principal diagnosis: Reason for follow-up is MRSA bacteremia Patient is a 88-year-old female with a past medical history significant for diabetes mellitus hypertension pneumonia heart failure patient recently did have a fall leading to the right hip fracture status postsurgical repair since then the patient seem to have a problem with a nonhealing wound to the mid back area, patient was brought to the hospital for shortness of breath and hypoxemia she did have a positive culture with ESBL Klebsiella and blood culture positive for MRSA prompting this consultation On today's evaluation that is 12/07/2023,the patient remains to be afebrile, patient is on 2 L nasal cannula supplemental oxygen and denies any shortness of breath no chest pain or cough.Patient denies having any nausea or vomiting, no abdominal pain and no diarrhea has been reported. Patient white count is 9.95, creatinine is 1.3 Vanco random 22.7 blood culture repeat negative Objective - Vital Signs Vital signs: Vital Signs Temp 97.6 F 12/07/23 07:49 Pulse 72 12/07/23 08:30 Resp 18 12/07/23 07:49 BP 121/60 12/07/23 07:49 Pulse Ox 93 L 12/07/23 08:18 FiO2 21 12/05/23 09:05 Intake & Output 12/06/23 12/07/23 12/07/23 18:59 06:59 18:59 Output Total 750 350 Balance -750 -350 Weight 68.5 kg Output: Urine 750 350 Other: # Voids 2 - Exam GENERAL DESCRIPTION: An elderly female lying in bed in no distress RESPIRATORY SYSTEM: Unlabored breathing , decreased breath sounds at bases HEART: S1 S2 regular rate and rhythm , ABDOMEN: Soft , no tenderness EXTREMITIES: No edema feet - Labs CBC & Chem 7: 12/07/23 05:03 12/07/23 05:03 Labs: Abnormal Lab Results - Last 24 Hours (Table) 12/06/23 12/06/23 12/07/23 Range/Units 16:31 20:25 05:03 RBC 3.06 L (4.10-5.20) X 10*6/uL Hgb 9.0 L (12.0-15.0) g/dL Hct 29.2 L (37.2-46.3) % MCHC 30.8 L (32.0-37.0) g/dL RDW 16.2 H (11.5-14.5) % Immature Gran # 0.11 H (0.00-0.04) X 10*3/uL Neutrophils # 8.10 H (1.80-7.70) X 10*3/uL Lymphocytes # 0.89 L (0.90-5.00) X 10*3/uL BUN (9.0-27.0) mg/dL Est GFR (CKD-EPI) (>=60) BUN/Creatinine Ratio (12.00-20.00) Ratio Glucose (70-110) mg/dL POC Glucose (mg/dL) 234 H 357 H (70-110) mg/dL 12/07/23 12/07/23 12/07/23 Range/Units 05:03 05:55 11:20 RBC (4.10-5.20) X 10*6/uL Hgb (12.0-15.0) g/dL Hct (37.2-46.3) % MCHC (32.0-37.0) g/dL RDW (11.5-14.5) % Immature Gran # (0.00-0.04) X 10*3/uL Neutrophils # (1.80-7.70) X 10*3/uL Lymphocytes # (0.90-5.00) X 10*3/uL BUN 64.9 H (9.0-27.0) mg/dL Est GFR (CKD-EPI) 40 L (>=60) BUN/Creatinine Ratio 49.92 H (12.00-20.00) Ratio Glucose 263 H (70-110) mg/dL POC Glucose (mg/dL) 260 H 291 H (70-110) mg/dL Microbiology - Last 24 Hours (Table) 12/01/23 04:50 Blood Culture - Final Blood Assessment and Plan (1) MRSA bacteremia Current Visit: Yes Status: Acute Code(s): R78.81 - BACTEREMIA; B95.62 - METHICILLIN RESIS STAPH INFCT CAUSING DISEASES [facility] SNOMED Code(s): 29085395828559719 (2) Stage III pressure ulcer of back Current Visit: No Status: Acute Code(s): L89.103 - PRESSURE ULCER OF UNSPECIFIED PART OF BACK, STAGE 3 SNOMED Code(s): 03034377401940133 Plan: 1patient with MRSA bacteremia in this patient presented to hospital with increasing shortness of breath however no significant cough or sputum production clinically not behaving as pneumonia the patient did have a wound to the mid back area did have some purulent drainage which has been culture and high clinical suspicion for possible lumbar spine disease versus paraspinal abscess 2- CT of the lumbar spine with contrast shows vertebral body loss at L1 question of super added infection, patient did have MRI of the lumbar spine whi ch mention nonspecific T2 hyperintensity and gadolinium enhancement of the intervertebral disc and L1 vertebral body concerning for possible infection 3-patient has been evaluated by orthopedics and family agreed for surgery however the patient was considered to be high risk for any surgical procedure by anesthesia and surgery has been canceled 4-patient to continue with the vancomycin pharmacy to dose, currently waiting for outpatient IV antibiotic arrangement and PICC line placement if any concern regarding her kidney function and outpatient IV Vanco, daptomycin may be an option Dictation was produced using [employer] dictation software. please excuse any grammatical, word or spelling errors. Time with Patient: Less than 30
--- NOTE | 2023-12-07 13:21 | P.PN ---
Subjective Progress Note Date: 12/07/23 I am seeing this patient in consultation today 11/27/2023 after she was sent from her local ECF after being noted to be short of breath and hypoxic. Patient is a 88-year-old white female with past medical history significant for congestive heart failure, chronic hypoxemic respiratory failure on 2 L O2 at baseline, diabetes mellitus, hypertension, hyperlipidemia, and recent right- sided hip fracture with prolonged hospitalization at outside facility. She resides at [facility]. She had a recent hospitalization at our facility in September of this year for congestive heart failure. Echocardiogram done 10/09/2023 showed a preserved left ventricular ejection fraction, moderate mitral regurgitation, moderate to severe tricuspid regurgitation, and severe pulmonary hypertension. There was a repeat hospital admission earlier in October of this year for similar symptoms. She was incidentally noted to be influenza A positive. She was discharged back to her ECF 11/06/2023. She has been taking Lasix 40 mg twice daily. She has completed her course of Tamiflu. Patient returns after progressively worsening dyspnea while at [facility]. She was noted to be hypoxic on her chronic 2 L/min nasal cannula. She was brought in by EMS yesterday afternoon. Patient is currently resting in bed, on 4 L/min nasal cannula, in no acute distress. She does have worsening lower extremity edema. Denies any chest pain, heart palpitations, lightheadedness, orthopnea, PND. Denies any fevers, chills, cough, hemoptysis. Chest x-ray done on arrival appears to show diffuse pulmonary edema and mild cardiomegaly. Superimposed multifocal pneumonia could be within the differential. CBC does show leukocytosis with a WBC count of 22.4, hemoglobin 9.5, hematocrit 30.4, platelets 157. BMP on arrival: Sodium 135, potassium 5.3, chloride 106, serum bicarb 23, BUN 60, creatinine 1.23, glucose 531. Lactic 1.4. Troponin less than 0.012. NT proBNP 3100. Procalcitonin 0.35. Urinalysis shows small leukocyte esterase and pyuria. Negative for influenza, RSV, COVID. Patient is empirically covered on azithromycin and Rocephin. Vital signs are stable. On today's evaluation of 11/28/2023, the patient is being seen for a follow-up. Slightly improved compared to yesterday and the patient is currently on 40 Suboxone by nasal cannula with a pulse ox of 97%. Responding to the diuretics and the patient is currently in negative fluid balance. The white cell count is 16.8 with a hemoglobin of 10.5 and a platelet count of 179. The rest of the blood work and electrolytes are stable. Creatinine is up to 1.3 with a BUN of 45 and a sodium levels at 142. Potassium level needs to be replaced at 2.9. The patient remains on IV Rocephin. The patient is also on IV Lasix 40 mg every 12 hours. There is a single blood culture that showed gram-positive cocci in clusters, likely contaminant. This is 1 out of 2 bottles. Urine culture is showing gram-negative bacillus. Overall condition is stable. Hemodynamically stable. No hypotension. No fever. No significant tachycardia. On today's evaluation of 11/28/2023, the patient is feeling well. Less short of breath compared to yesterday. CHF is being optimized. The patient is still being diuresed with IV Lasix 40 mg every 12 hours. Fluid balance is -1 L over the past 24 hours. Renal function is stable with a BUN of 16 and creatinine 1.2 and a sodium levels at 140. Potassium level is at 3.6. The patient is currently on 4 L of O2 nasal cannula with a pulse ox of 98% and the oxygenation is stable and this can be gradually weaned off. The patient is responding nicely to diuretics. No clear indication for pneumonia. Nevertheless, the blood culture was presumptive MRSA in the urine culture was also positive for ESBL producing E. coli. The patient's UA showed small significant abnormalities. Procalcitonin level is at 0.26. Current antibiotic coverage includes Rocephin and vancomycin. The patient is seen today November 30, 2023 in follow-up on the regular medical floor. She is currently resting comfortably in bed. Awake and alert in no acute distress. She is maintaining good O2 saturations in the upper 90s on 4 L/min per nasal cannula. Urine culture was positive for Klebsiella pneumoniae. Blood cultures are positive for MRSA. White count 10.1. Hemoglobin 10.0. Platelets 202. Sodium 144. Potassium 3.5. Bicarb 32. BUN 48. Creatinine 1.1. C-reactive protein 5.7. Procalcitonin 0.14. She is continued on DuoNeb inhalations, antibiotics in the form of ertapenem and vancomycin. Remains on oral diuretics. The patient is seen today December 01, 2023 in follow-up on the regular medical floor. She is sitting up at the bedside. Feeling a bit better today compared to yesterday. She is maintaining O2 saturations in the 90s on room air. Urine culture was positive for Klebsiella pneumoniae. Blood culture was positive for MRSA. White count 10.9. Hemoglobin 9.5. Platelets 211. Sodium 138. P otassium 4.1. Bicarb 33. BUN 54. Creatinine 1.05. Glucose 245. Chest x-ray revealed much improved aeration about the perihilar regions and residual perihilar infiltrate and pulmonary venous congestion. CT of the lumbar spine revealed complete loss of vertebral body height of L1 vertebrae. Superimposed infection is not excluded. No subcutaneous organizing fluid collection. Degenerative changes noted. He is continued on ertapenem and vancomycin. Remains on bronchodilators. Remains on diuretics. The patient is seen today December 02, 2023 in follow-up on the regular medical floor. She is currently resting comfortably in bed. Awake and alert in no acute distress. Maintaining good O2 saturations in the mid 90s on room air. She has been afebrile. Hemodynamically stable. Blood cultures were positive for MRSA. Urine culture was positive for Klebsiella pneumoniae. She is continued on vancomycin and Invanz. Follow-up blood culture revealing no growth thus far. Glucose 196. Creatinine 0.98. She is continued on DuoNeb ventilations. Transition to oral diuretics. No accurate I & O. The patient is seen today December 03, 2023 in follow-up on the regular medical floor. She is awake and alert in no acute distress. Resting fairly comfortably in bed. She continues to maintain good O2 saturations in the 90s on room air. She has been afebrile. Hemodynamically stable. MRI of the spine is pending. Follow-up blood cultures revealed no growth. Wound culture of the back revealed no growth. White count 9.6. Hemoglobin 10.1. Platelets 256. Sodium 141. Potassium 5.1. Bicarb 30. BUN 77. Creatinine 0.99. Glucose 105. She remains on bronchodilators. Remains on oral diuretics. Antibiotics in the form of vancomycin. The patient is seen today December 04, 2023 in follow-up on the regular medical floor. She remains awake and alert in no acute distress. She denies any worsening shortness of breath, cough or congestion. He is maintaining good O2 saturations in the 90s on room air. She is afebrile. Hemodynamically stable. MRI of the spine revealed severe degenerative spine changes from L1-L3 with severe compression fracture and complete vertebral height loss of L1 vertebral body. The plan is for possible surgical intervention today. White count 9.6. Hemoglobin 9.6. Platelets 265. Sodium 141. Potassium 3.8. Bicarb 29. BUN 66. Creatinine 0.96. She remains on vancomycin. Infectious disease is following. The patient is seen today December 05, 2023 in follow-up on the regular medical floor. She is resting in bed. Awake and alert in no acute distress. Based on her high risk for spine stabilization surgery, this was placed on hold for now. She denies any worsening back pain currently. She is maintaining good O2 saturations in the 90s on room air. She is afebrile. Hemodynamically stable. She is continued on oral diuretics, bronchodilators. Remains on vancomycin. The patient is seen today December 06, 2023 in follow-up on the regular medical floor. She is currently resting in bed. Awake and alert in no acute distress. Family is at the bedside. She is maintaining good O2 saturations in the 90s on room air. She has been afebrile. Hemodynamically stable. He did have some issues with low blood sugars this morning. Current glucose 138. Chest x-ray continues to show bilateral perihilar infiltrates with increasing infiltrate of the right upper lobe. She remains on bronchodilators. She remains on vancomycin. The patient is seen today December 07, 2023 in follow-up on the regular medical floor. She is sitting up in a chair at the bedside. Awake and alert in no acute distress. She is maintaining O2 saturations in the 90s on 2 L/min per nasal cannula. She is afebrile. Hemodynamically stable. She continues with a loose congested cough. Initial blood cultures positive for MRSA, follow-up blood culture revealed no growth. Urine culture positive for Klebsiella pneumoniae. White count 9.9. Hemoglobin 9.0. Platelets 282. Sodium 138. Potassium 5.3. Bicarb 27. BUN 65. Creatinine 1.3. Glucose 263. Random vanc omycin level 22.7. She is continued on vancomycin. Continued on bronchodilators. Transition back to IV diuretics. Currently in a -1.1 L balance. Objective - Vital Signs Vital signs: Vital Signs Temp 97.6 F 12/07/23 07:49 Pulse 72 12/07/23 08:30 Resp 18 12/07/23 07:49 BP 121/60 12/07/23 07:49 Pulse Ox 93 L 12/07/23 08:18 FiO2 21 12/05/23 09:05 Intake & Output 12/06/23 12/07/23 12/07/23 18:59 06:59 18:59 Output Total 750 350 Balance -750 -350 Weight 68.5 kg Output: Urine 750 350 Other: # Voids 2 - Exam GENERAL EXAM: Alert, frail 88-year-old female, up in a chair, on 2 L/min per nasal cannula, in no apparent distress. HEAD: Normocephalic and atraumatic EYES: Normal reaction of pupils, equal size. NOSE: Clear with pink turbinates. THROAT: No erythema or exudates. NECK: No masses, no JVD. CHEST: No chest wall deformity. LUNGS: Equal air entry with bibasilar crackles. No wheeze, rhonchi or focal dullness. CVS: S1 and S2 normal with soft grade 1/6 systolic murmur, regular rhythm. No other extra heart sounds ABDOMEN: No hepatosplenomegaly, active bowel sounds, no guarding or rigidity. SPINE: No scoliosis or deformity SKIN: No rashes stage II pressure ulcer of the midline back CENTRAL NERVOUS SYSTEM: No focal deficits, tone is normal in all 4 extremities. EXTREMITIES: There is 2+ bilateral lower extremity pitting edema. Clubbing, or cyanosis. Peripheral pulses are intact. - Labs CBC & Chem 7: 12/07/23 05:03 12/07/23 05:03 Labs: Abnormal Lab Results - Last 24 Hours (Table) 12/06/23 12/06/23 12/07/23 Range/Units 16:31 20:25 05:03 RBC 3.06 L (4.10-5.20) X 10*6/uL Hgb 9.0 L (12.0-15.0) g/dL Hct 29.2 L (37.2-46.3) % MCHC 30.8 L (32.0-37.0) g/dL RDW 16.2 H (11.5-14.5) % Immature Gran # 0.11 H (0.00-0.04) X 10*3/uL Neutrophils # 8.10 H (1.80-7.70) X 10*3/uL Lymphocytes # 0.89 L (0.90-5.00) X 10*3/uL BUN (9.0-27.0) mg/dL Est GFR (CKD-EPI) (>=60) BUN/Creatinine Ratio (12.00-20.00) Ratio Glucose (70-110) mg/dL POC Glucose (mg/dL) 234 H 357 H (70-110) mg/dL 12/07/23 12/07/23 12/07/23 Range/Units 05:03 05:55 11:20 RBC (4.10-5.20) X 10*6/uL Hgb (12.0-15.0) g/dL Hct (37.2-46.3) % MCHC (32.0-37.0) g/dL RDW (11.5-14.5) % Immature Gran # (0.00-0.04) X 10*3/uL Neutrophils # (1.80-7.70) X 10*3/uL Lymphocytes # (0.90-5.00) X 10*3/uL BUN 64.9 H (9.0-27.0) mg/dL Est GFR (CKD-EPI) 40 L (>=60) BUN/Creatinine Ratio 49.92 H (12.00-20.00) Ratio Glucose 263 H (70-110) mg/dL POC Glucose (mg/dL) 260 H 291 H (70-110) mg/dL Microbiology - Last 24 Hours (Table) 12/01/23 04:50 Blood Culture - Final Blood Assessment and Plan Assessment: Acute on chronic hypoxemic respiratory failure, likely secondary to exacerbation of diastolic congestive heart failure. NT proBNP was elevated at 3100. Chronic diastolic heart failure and valvular heart disease with moderate to severe mitral regurgitation and severe tricuspid regurgitation with secondary pulmonary hypertension. Left ventricular ejection fraction was estimated at 55 to 60% on most recent echocardiogram. Severe mitral regurgitation Chronic hypoxemic respiratory failure, secondary to above Vertebral loss at L1 with question of possible infection Leukocytosis, recovered Acute urinary tract infection, ESBL producing Klebsiella pneumoniae with a mildly abnormal UA. Could be colonization versus true infection. Completed Invanz Methicillin resistant Staphylococcus aureus in the blood cultures. Currently on vancomycin. Acute kidney injury, creatinine is stable and improved Benign essential hypertension History of hyperlipidemia Diabetes mellitus type 2 History of fall with right hip fracture and recent complicated hospital stay at outside facility ECF resident Plan: The patient was seen and evaluated Medications and labs reviewed Transitioned back to IV diuretics Nephrology is consulted Antibiotics per ID services To have PICC line placed today We will continue to follow I have personally seen and examined the patient, performed the documentation and the assessment and plan as written. Number of minutes spent on the visit: 10.
[2023-12-07] MEDS: LACTATED RINGERS 1,000 ML IV SCH (13:24)
[2023-12-07] MEDS: ONDANSETRON 4 MG/2 ML VIAL IVP ONE (13:24)
[2023-12-07] MEDS: DEXAMETHASONE SOD PHOSPHATE 4 MG/ML 1 ML VIAL IV ONE (13:24)
[2023-12-07] MEDS ORDERED: LIDOCAINE 1% INJ 10MG/ML (20 ML MDV) ONE (14:45)
[2023-12-07] MEDS: LIDOCAINE 1% INJ 10MG/ML (20 ML MDV) SQ ONE (15:19)
--- NOTE | 2023-12-07 15:48 | P.OP ---
Date of Procedure: 12/07/23 Description of Procedure: Preoperative Diagnosis: Need for long-term IV antibiotic access. Postoperative Diagnosis: Same. Procedure(s) Performed: Ultrasound-guided cannulation right brachial vein. Insertion of peripherally inserted central catheter under fluoroscopic guidance. Anesthesia: local 1% lidocaine plain Surgeon: Citlalli Estimated Blood Loss (ml): 5 IV fluids (ml): 0 Urine output (ml): 0 Pathology: none sent Condition: stable Disposition: no change Indications for Procedure: Patient requires long-term IV antibiotics as an outpatient patient is offered a PICC line to allow for intravenous administration of antibiotics. Description of Procedure: Patient was brought to the special procedure suite. The right upper extremity sterilely prepped and draped in usual manner. Ultrasound was utilized to identify the brachial vein which was normally compressible free of visible thrombus. Permenant image was stored. 1% Xylocaine was utilized for local anesthesia tissues overlying the vein. Through this anesthetized area and with the aid of ultrasound a micropuncture needle was utilized to cannulate the vein. Once cannulated, Softip guidewire was advanced into the vein. The needle was withdrawn and a micropuncture sheath and dilator advanced over the guidewire. The guidewire was withdrawn and exchanged for the PICC guidewire and measured 35 cm to the cavoatrial junction. The catheter was cut to size and advanced into the cavoatrial junction without resistance. The sheath was peeled away. Blood was easily withdrawn through the catheter and the catheter was then flushed with heparinized saline solution and secured to the skin. Patient tolerated procedure well and was returned to their room in satisfactory and stable condition.
[2023-12-07 16:13] LABS: Glucose,Whole Blood 297 mg/dL (70-110)
--- NOTE | 2023-12-07 16:27 | P.PN ---
Subjective Progress Note Date: 12/07/23 This is an 88-year-old female who was recently admitted with acute CHF with exacerbation along with generalized weakness and concerns for pneumonia being closely monitored. Multiple medical consultations following including orthopedic and MRI of the spine is currently ordered and pending for today. Infectious disease following as well and feels there may be concern for abscess or infectious process within the spine as patient did have MRSA bacteremia. Most recent blood culture is negative and patient is maintained on antibiotics. Orthopedics discussing surgery options and awaiting family decision 12/04/2023 Patient is seen and evaluated in follow-up this morning with multiple medical consultations following including infectious disease maintained on IV antibiotics in the form of vancomycin as there is concern for an abscess or infectious process within the spine as there is noted fractures. Orthopedics following recommending surgical intervention. Case was discussed thoroughly with family who is a neurologist and willing to proceed with the surgical intervention given patient's risks versus benefits to ensure a better quality of life. Patient was evaluated by cardiology as well as pulmonary deemed as extremely high risk although if family were agreeable and if absolutely necessar y okay to proceed with the surgery. Patient is currently afebrile with no reports of chest pain or shortness of breath. Patient is n.p.o. in the event patient will undergo surgery. 12/05/2023 Patient is seen in evaluation today on the medical floor. She was pending surgical intervention yesterday however anesthesia did not feel that patient was a surgical candidate and was extremely high risk surgery was canceled. Patient continues on IV vancomycin with possibility of needing a PICC line for outpatient antibiotics on discharge this will be further discussed with infectious disease. Patient's family does not want patient to return to subacute rehab and patient does want to return home with her family on discharge. Blood sugar remains elevated in the 230s. 12/06/2023 Patient is evaluated today resting in bed. Family at the bedside. Not a surgical candidate. Repeat blood cultures are negative so far. Patient continues on IV vancomycin; scheduled for PICC line placement tomorrow. ID recommending 6 weeks of outpatient antibiotic therapy with vancomycin. Blood glucose into the 50s to day and levemir was adjusted. Patient is now hyperglycemic. Creatinine up to 1.14 today. Lasix was increased to 40 mg TID by cardiology. 12/07/2023 Patient is evaluated today resting in bed. She has not received a PICC line yet we will tentatively plan for discharge tomorrow after coordination with social work for outpatient antibiotic therapy. ID is recommending 6 weeks of IV vancomycin. Patient is sitting up in the chair reporting less shortness of breath. She remains on 2 L of oxygen via nasal cannula. Her oxygen saturations are worsening. We are recommending to transition the patient to IV Lasix. Remains hypoxic on room air. Review of systems: Constitutional: No reports of fatigue, fever, or chills Cardiovascular: No reports of chest pain or palpitations Respiratory: No reports of shortness of breath or cough GI: No reports of nausea, no reports of vomiting, no diarrhea : No reports of dysuria or retention Neurovascular: reports of generalized weakness, some back pain All medications have been reviewed PHYSICAL EXAMINATION: GENERAL: The patient is alert and oriented x2-3, Well developed, well nourished. Elderly appearing HEENT: Pupils are round and equally reacting to light. EOMI. no scleral icterus. No conjunctival pallor. Normocephalic, atraumatic. No pharyngeal erythema. No thyromegaly. CARDIOVASCULAR: S1 and S2 muffled PULMONARY: diminished breath sounds bilaterally concern for bibasilar crackles noted on examination today ABDOMEN: soft. obese. Nontender on exam. non-distended, normoactive bowel sounds. No palpable organomegaly. MUSCULOSKELETAL: No joint swelling or deformity. EXTREMITIES: No cyanosis, clubbing, or pedal edema. There is some mild edema noted on bilateral lower ankles left worse than right NEUROLOGICAL: Gross neurological examination did not reveal any focal deficits. Diffuse weakness SKIN: No rashes. Assessment: Acute pneumonia, community-acquired present on admission with acute on chronic hypoxic respiratory failure Acute on chronic diastolic congestive heart failure Chronic kidney disease stage IIIa with baseline creatinine 1-1.3. Possible acute urinary tract infection, present on admission with Klebsiella pneumonia in the urine, although suspicion is low most likely asymptomatic bacteriuria as patient was not having symptoms L1 compression fracture with severe degenerative joint disease, there is concern for lumbar discitis and osteomyelitis; felt to be high risk for surgical intervention. Gait dysfunction with generalized weakness Leukocytosis, improved Left ear pain with bleeding secondary to excoriation and trauma MRSA bacteremia with source likely near the L1 compression fracture with co ncerns of paraspinal abscess, patient not a candidate for surgical intervention. GI prophylaxis DVT prophylaxis Full code Plan: -Recommend to continue with current medications and management with multiple medical consultations following -Infectious disease following maintained on antibiotics and there is concern for abscess within the spine as patient had positive bacteremia with MRSA. Most re cent cultures are negative -Patient underwent lumbar spine MRI with orthopedics following with a non specific T2 hyperintensity and enhancement of the intervertebral discs and L1 vertebral body that extends into the T12-L1 to L1-2 -CODE STATUS was addressed with family and they would like to keep the patient full CODE STATUS and not willing or ready to discuss hospice at this time. -PT/OT therapy daily as patient is with weakness and progressively more weak. Patient has had multiple hospitalizations and has been to rehab a few times most recently. Patient's family would like to take the patient home once discharged as they were not happy with the care she was receiving at [facility]. -Pending PICC line placement today and coordination of care with social work for outpatient IV -Recommending IV lasix overnight and follow up in the AM. -Will follow-up with repeat labs in the a.m. Plan of care discussed with family at the bedside. Pending PICC line placement and monitoring overnight. Follow up with family in the AM for discharge plan confirming home vs. [facility]. The impression and plan of care has been dictated by Rubi Glynn Nurse Practitioner as directed. Dr. Bhargav MD I have performed a history and physical examination and medical decision making of this patient, discussed the same with the dictator, and agree with the dictators assessment and plan as written, documented as a scribe. Based on total visit time, I have performed more than 50% of this visit. Objective - Vital Signs Vital signs: Vital Signs Temp 97.6 F 12/07/23 07:49 Pulse 72 12/07/23 08:30 Resp 18 12/07/23 07:49 BP 121/60 12/07/23 07:49 Pulse Ox 93 L 12/07/23 08:18 FiO2 21 12/05/23 09:05 Intake & Output 12/06/23 12/07/23 12/07/23 18:59 06:59 18:59 Output Total 750 350 Balance -750 -350 Weight 68.5 kg Output: Urine 750 350 Other: # Voids 2 - Labs CBC & Chem 7: 12/07/23 05:03 12/07/23 05:03 Labs: Abnormal Lab Results - Last 24 Hours (Table) 12/06/23 12/06/23 12/07/23 Range/Units 16:31 20:25 05:03 RBC 3.06 L (4.10-5.20) X 10*6/uL Hgb 9.0 L (12.0-15.0) g/dL Hct 29.2 L (37.2-46.3) % MCHC 30.8 L (32.0-37.0) g/dL RDW 16.2 H (11.5-14.5) % Immature Gran # 0.11 H (0.00-0.04) X 10*3/uL Neutrophils # 8.10 H (1.80-7.70) X 10*3/uL Lymphocytes # 0.89 L (0.90-5.00) X 10*3/uL BUN (9.0-27.0) mg/dL Est GFR (CKD-EPI) (>=60) BUN/Creatinine Ratio (12.00-20.00) Ratio Glucose (70-110) mg/dL POC Glucose (mg/dL) 234 H 357 H (70-110) mg/dL 12/07/23 12/07/23 12/07/23 Range/Units 05:03 05:55 11:20 RBC (4.10-5.20) X 10*6/uL Hgb (12.0-15.0) g/dL Hct (37.2-46.3) % MCHC (32.0-37.0) g/dL RDW (11.5-14.5) % Immature Gran # (0.00-0.04) X 10*3/uL Neutrophils # (1.80-7.70) X 10*3/uL Lymphocytes # (0.90-5.00) X 10*3/uL BUN 64.9 H (9.0-27.0) mg/dL Est GFR (CKD-EPI) 40 L (>=60) BUN/Creatinine Ratio 49.92 H (12.00-20.00) Ratio Glucose 263 H (70-110) mg/dL POC Glucose (mg/dL) 260 H 291 H (70-110) mg/dL 12/07/23 Range/Units 16:10 RBC (4.10-5.20) X 10*6/uL Hgb (12.0-15.0) g/dL Hct (37.2-46.3) % MCHC (32.0-37.0) g/dL RDW (11.5-14.5) % Immature Gran # (0.00-0.04) X 10*3/uL Neutrophils # (1.80-7.70) X 10*3/uL Lymphocytes # (0.90-5.00) X 10*3/uL BUN (9.0-27.0) mg/dL Est GFR (CKD-EPI) (>=60) BUN/Creatinine Ratio (12.00-20.00) Ratio Glucose (70-110) mg/dL POC Glucose (mg/dL) 297 H (70-110) mg/dL Microbiology - Last 24 Hours (Table) 12/01/23 04:50 Blood Culture - Final Blood Assessment and Plan Time with Patient: Less than 30
[2023-12-07] MEDS: FUROSEMIDE 10 MG/ML 4 ML VIAL IV SCH (16:31)
[2023-12-07] MEDS: DARBEPOETIN ALFA 40 MCG/0.4 ML SYRINGE SQ SCH (16:41)
--- NOTE | 2023-12-07 16:41 | IR ---
PICC Insertion: EXAMINATION TYPE: IR cvc insert >=5 years Intraoperative/procedural fluoroscopic services were provid ed. CLINICAL INDICATION:Female, 88 years old with history of ABX, 0.4min fluoro, 35cm, right basilic vein , 0.287Tdsb6; , [facility] Total fluoroscopy time is 0.4 min. DAP: 0.576 Gycm2 Please see the operative/procedural note for further details.
--- NOTE | 2023-12-07 17:19 | US ---
EXAMINATION TYPE: US kidneys/renal and bladder DATE OF EXAM: 12/07/2023 COMPARISON: NONE CLINICAL INDICATION: Female, 88 years old with history of REJI; Elderly female REJI, MRSA EXAM MEASUREMENTS: Right Kidney: 7.9 x 4.3 x 3.6 cm Left Kidney: 7.3 x 3.5 x 3.8 cm Cylinder Dyer notes:*scanned patient in recliner, very limited assessment Right Kidney: No hydronephrosis or masses seen Left Kidney: No hydronephrosis or masses seen Renal cortical thinning is noted. Bladder: not distended IMPRESSION: 1. No hydronephrosis. Very limited detailed assessment due to having to scan the patient in a recline r. 2. Small kidney size and cortical thinning suggests chronic medical renal disease.
[2023-12-07 19:18] LABS: Glucose,Whole Blood 179 mg/dL (70-110)
[2023-12-07 21:48] LABS: Glucose,Whole Blood 98 mg/dL (70-110)
[2023-12-08 05:15] LABS: Glucose,Whole Blood 61 mg/dL (70-110)
[2023-12-08 05:46] LABS: Glucose,Whole Blood 101 mg/dL (70-110)
[2023-12-08 05:53] LABS: African American GFR (CKD) 46 (>60 ml/min/1.73 sqM); Anion Gap 4 mmol/L; Blood Urea Nitrogen 64 mg/dL (7-17); Calcium 8.5 mg/dL (8.4-10.2); Carbon Dioxide 30 mmol/L (22-30); Chloride 105 mmol/L (98-107); Non-African American GFR(CKD) 40 (>60 ml/min/1.73 sqM); Potassium 3.6 mmol/L (3.5-5.1); Sodium 139 mmol/L (137-145)
[2023-12-08 05:58] LABS: Glucose 44 mg/dL (74-99)
[2023-12-08 08:09] VITALS: BP 108/51
[2023-12-08 08:10] VITALS: RESP 18; TEMP 97.5
[2023-12-08] MEDS: ZINC OXIDE PASTE (Z-GUARD) 1 APPLIC TOPICAL ONE (10:06)
[2023-12-08] MEDS: VANCOMYCIN 1,250 MG in SODIUM CHLORIDE 0.9% 250 ML IVPB ONE (10:39)
[2023-12-08 11:18] LABS: Glucose,Whole Blood 131 mg/dL (70-110)
[2023-12-08 12:57] VITALS: PULSE 64
--- NOTE | 2023-12-08 12:58 | P.PN ---
Subjective Progress Note Date: 12/08/23 I am seeing this patient in consultation today 11/27/2023 after she was sent from her local ECF after being noted to be short of breath and hypoxic. Patient is a 88-year-old white female with past medical history significant for congestive heart failure, chronic hypoxemic respiratory failure on 2 L O2 at baseline, diabetes mellitus, hypertension, hyperlipidemia, and recent right- sided hip fracture with prolonged hospitalization at outside facility. She resides at [facility]. She had a recent hospitalization at our facility in September of this year for congestive heart failure. Echocardiogram done 10/09/2023 showed a preserved left ventricular ejection fraction, moderate mitral regurgitation, moderate to severe tricuspid regurgitation, and severe pulmonary hypertension. There was a repeat hospital admission earlier in October of this year for similar symptoms. She was incidentally noted to be influenza A positive. She was discharged back to her ECF 11/06/2023. She has been taking Lasix 40 mg twice daily. She has completed her course of Tamiflu. Patient returns after progressively worsening dyspnea while at [facility]. She was noted to be hypoxic on her chronic 2 L/min nasal cannula. She was brought in by EMS yesterday afternoon. Patient is currently resting in bed, on 4 L/min nasal cannula, in no acute distress. She does have worsening lower extremity edema. Denies any chest pain, heart palpitations, lightheadedness, orthopnea, PND. Denies any fevers, chills, cough, hemoptysis. Chest x-ray done on arrival appears to show diffuse pulmonary edema and mild cardiomegaly. Superimposed multifocal pneumonia could be within the differential. CBC does show leukocytosis with a WBC count of 22.4, hemoglobin 9.5, hematocrit 30.4, platelets 157. BMP on arrival: Sodium 135, potassium 5.3, chloride 106, serum bicarb 23, BUN 60, creatinine 1.23, glucose 531. Lactic 1.4. Troponin less than 0.012. NT proBNP 3100. Procalcitonin 0.35. Urinalysis shows small leukocyte esterase and pyuria. Negative for influenza, RSV, COVID. Patient is empirically covered on azithromycin and Rocephin. Vital signs are stable. On today's evaluation of 11/28/2023, the patient is being seen for a follow-up. Slightly improved compared to yesterday and the patient is currently on 40 Suboxone by nasal cannula with a pulse ox of 97%. Responding to the diuretics and the patient is currently in negative fluid balance. The white cell count is 16.8 with a hemoglobin of 10.5 and a platelet count of 179. The rest of the blood work and electrolytes are stable. Creatinine is up to 1.3 with a BUN of 45 and a sodium levels at 142. Potassium level needs to be replaced at 2.9. The patient remains on IV Rocephin. The patient is also on IV Lasix 40 mg every 12 hours. There is a single blood culture that showed gram-positive cocci in clusters, likely contaminant. This is 1 out of 2 bottles. Urine culture is showing gram-negative bacillus. Overall condition is stable. Hemodynamically stable. No hypotension. No fever. No significant tachycardia. On today's evaluation of 11/28/2023, the patient is feeling well. Less short of breath compared to yesterday. CHF is being optimized. The patient is still being diuresed with IV Lasix 40 mg every 12 hours. Fluid balance is -1 L over the past 24 hours. Renal function is stable with a BUN of 16 and creatinine 1.2 and a sodium levels at 140. Potassium level is at 3.6. The patient is currently on 4 L of O2 nasal cannula with a pulse ox of 98% and the oxygenation is stable and this can be gradually weaned off. The patient is responding nicely to diuretics. No clear indication for pneumonia. Nevertheless, the blood culture was presumptive MRSA in the urine culture was also positive for ESBL producing E. coli. The patient's UA showed small significant abnormalities. Procalcitonin level is at 0.26. Current antibiotic coverage includes Rocephin and vancomycin. The patient is seen today November 30, 2023 in follow-up on the regular medical floor. She is currently resting comfortably in bed. Awake and alert in no acute distress. She is maintaining good O2 saturations in the upper 90s on 4 L/min per nasal cannula. Urine culture was positive for Klebsiella pneumoniae. Blood cultures are positive for MRSA. White count 10.1. Hemoglobin 10.0. Platelets 202. Sodium 144. Potassium 3.5. Bicarb 32. BUN 48. Creatinine 1.1. C-reactive protein 5.7. Procalcitonin 0.14. She is continued on DuoNeb inhalations, antibiotics in the form of ertapenem and vancomycin. Remains on oral diuretics. The patient is seen today December 01, 2023 in follow-up on the regular medical floor. She is sitting up at the bedside. Feeling a bit better today compared to yesterday. She is maintaining O2 saturations in the 90s on room air. Urine culture was positive for Klebsiella pneumoniae. Blood culture was positive for MRSA. White count 10.9. Hemoglobin 9.5. Platelets 211. Sodium 138. P otassium 4.1. Bicarb 33. BUN 54. Creatinine 1.05. Glucose 245. Chest x-ray revealed much improved aeration about the perihilar regions and residual perihilar infiltrate and pulmonary venous congestion. CT of the lumbar spine revealed complete loss of vertebral body height of L1 vertebrae. Superimposed infection is not excluded. No subcutaneous organizing fluid collection. Degenerative changes noted. He is continued on ertapenem and vancomycin. Remains on bronchodilators. Remains on diuretics. The patient is seen today December 02, 2023 in follow-up on the regular medical floor. She is currently resting comfortably in bed. Awake and alert in no acute distress. Maintaining good O2 saturations in the mid 90s on room air. She has been afebrile. Hemodynamically stable. Blood cultures were positive for MRSA. Urine culture was positive for Klebsiella pneumoniae. She is continued on vancomycin and Invanz. Follow-up blood culture revealing no growth thus far. Glucose 196. Creatinine 0.98. She is continued on DuoNeb ventilations. Transition to oral diuretics. No accurate I & O. The patient is seen today December 03, 2023 in follow-up on the regular medical floor. She is awake and alert in no acute distress. Resting fairly comfortably in bed. She continues to maintain good O2 saturations in the 90s on room air. She has been afebrile. Hemodynamically stable. MRI of the spine is pending. Follow-up blood cultures revealed no growth. Wound culture of the back revealed no growth. White count 9.6. Hemoglobin 10.1. Platelets 256. Sodium 141. Potassium 5.1. Bicarb 30. BUN 77. Creatinine 0.99. Glucose 105. She remains on bronchodilators. Remains on oral diuretics. Antibiotics in the form of vancomycin. The patient is seen today December 04, 2023 in follow-up on the regular medical floor. She remains awake and alert in no acute distress. She denies any worsening shortness of breath, cough or congestion. He is maintaining good O2 saturations in the 90s on room air. She is afebrile. Hemodynamically stable. MRI of the spine revealed severe degenerative spine changes from L1-L3 with severe compression fracture and complete vertebral height loss of L1 vertebral body. The plan is for possible surgical intervention today. White count 9.6. Hemoglobin 9.6. Platelets 265. Sodium 141. Potassium 3.8. Bicarb 29. BUN 66. Creatinine 0.96. She remains on vancomycin. Infectious disease is following. The patient is seen today December 05, 2023 in follow-up on the regular medical floor. She is resting in bed. Awake and alert in no acute distress. Based on her high risk for spine stabilization surgery, this was placed on hold for now. She denies any worsening back pain currently. She is maintaining good O2 saturations in the 90s on room air. She is afebrile. Hemodynamically stable. She is continued on oral diuretics, bronchodilators. Remains on vancomycin. The patient is seen today December 06, 2023 in follow-up on the regular medical floor. She is currently resting in bed. Awake and alert in no acute distress. Family is at the bedside. She is maintaining good O2 saturations in the 90s on room air. She has been afebrile. Hemodynamically stable. He did have some issues with low blood sugars this morning. Current glucose 138. Chest x-ray continues to show bilateral perihilar infiltrates with increasing infiltrate of the right upper lobe. She remains on bronchodilators. She remains on vancomycin. The patient is seen today December 07, 2023 in follow-up on the regular medical floor. She is sitting up in a chair at the bedside. Awake and alert in no acute distress. She is maintaining O2 saturations in the 90s on 2 L/min per nasal cannula. She is afebrile. Hemodynamically stable. She continues with a loose congested cough. Initial blood cultures positive for MRSA, follow-up blood culture revealed no growth. Urine culture positive for Klebsiella pneumoniae. White count 9.9. Hemoglobin 9.0. Platelets 282. Sodium 138. Potassium 5.3. Bicarb 27. BUN 65. Creatinine 1.3. Glucose 263. Random vanc omycin level 22.7. She is continued on vancomycin. Continued on bronchodilators. Transition back to IV diuretics. Currently in a -1.1 L balance. The patient is seen today December 08, 2023 in follow-up on the regular medical floor. She is resting comfortably in bed. Awake and alert in no acute d istress. She is maintaining O2 saturations in the 90s on 2 liters per minute per nasal cannula. She did undergo PICC line placement yesterday. Continued on vancomycin. Follow-up blood cultures revealed no growth. Sodium 139. Potassium 3.6. Bicarb 30. BUN 64. Creatinine 1.21. Glucose 131. Objective - Vital Signs Vital signs: Vital Signs Temp 97.5 F L 12/08/23 08:00 Pulse 64 12/08/23 12:26 Resp 18 12/08/23 08:00 BP 108/51 12/08/23 08:00 Pulse Ox 97 12/08/23 08:00 FiO2 21 12/05/23 09:05 Intake & Output 12/07/23 12/08/23 12/08/23 18:59 06:59 18:59 Output Total 300 Balance -300 Weight 66.5 kg Output: Urine 300 Other: Voiding Method External Catheter External Catheter - Exam GENERAL EXAM: Alert, frail 88-year-old female, resting in bed, on 2 L/min per nasal cannula, in no apparent distress. HEAD: Normocephalic and atraumatic EYES: Normal reaction of pupils, equal size. NOSE: Clear with pink turbinates. THROAT: No erythema or exudates. NECK: No masses, no JVD. CHEST: No chest wall deformity. LUNGS: Equal air entry with bibasilar crackles. No wheeze, rhonchi or focal dullness. CVS: S1 and S2 normal with soft grade 1/6 systolic murmur, regular rhythm. No other extra heart sounds ABDOMEN: No hepatosplenomegaly, active bowel sounds, no guarding or rigidity. SPINE: No scoliosis or deformity SKIN: No rashes stage II pressure ulcer of the midline back CENTRAL NERVOUS SYSTEM: No focal deficits, tone is normal in all 4 extremities. EXTREMITIES: There is 2+ bilateral lower extremity pitting edema. Clubbing, or cyanosis. Peripheral pulses are intact. - Labs CBC & Chem 7: 12/07/23 05:03 12/08/23 04:52 Labs: Abnormal Lab Results - Last 24 Hours (Table) 12/07/23 12/07/23 12/08/23 Range/Units 16:10 19:16 04:52 BUN 64 H (7-17) mg/dL Creatinine 1.21 H (0.52-1.04) mg/dL Glucose 44 L* (74-99) mg/dL POC Glucose (mg/dL) 297 H 179 H (70-110) mg/dL 12/08/23 12/08/23 Range/Units 05:12 11:17 BUN (7-17) mg/dL Creatinine (0.52-1.04) mg/dL Glucose (74-99) mg/dL POC Glucose (mg/dL) 61 L 131 H (70-110) mg/dL Assessment and Plan Assessment: Acute on chronic hypoxemic respiratory failure, likely secondary to exacerbation of diastolic congestive heart failure. NT proBNP was elevated at 3100. Chronic diastolic heart failure and valvular heart disease with moderate to severe mitral regurgitation and severe tricuspid regurgitation with secondary pulmonary hypertension. Left ventricular ejection fraction was estimated at 55 to 60% on most recent echocardiogram. Severe mitral regurgitation Chronic hypoxemic respiratory failure, secondary to above Vertebral loss at L1 with question of possible infection Leukocytosis, recovered Acute urinary tract infection, ESBL producing Klebsiella pneumoniae with a mildly abnormal UA. Could be colonization versus true infection. Completed Invanz Methicillin resistant Staphylococcus aureus in the blood cultures. Currently on vancomycin. Acute kidney injury, creatinine is stable and improved Benign essential hypertension History of hyperlipidemia Diabetes mellitus type 2 History of fall with right hip fracture and recent complicated hospital stay at outside facility ECF resident Plan: The patient was seen and evaluated Medications and labs reviewed PICC line placed Antibiotics per ID services Plan is for home with granddaughter post discharge I have personally seen and examined the patient, performed the documentation and the assessment and plan as written. Number of minutes spent on the visit: 10.
--- NOTE | 2023-12-08 13:16 | P.PN ---
Subjective Patient is seen in follow-up for chronic kidney disease. Renal function stable. Having lunch. Has been voiding. Family present at bedside. Vital signs are stable. General: No acute distress. HEENT: Head exam is unremarkable. LUNGS: No audible rhonchi or wheezes. HEART: Rate and Rhythm are regular. ABDOMEN: Nontender. EXTREMITITES: No edema. Objective - Vital Signs Vital signs: Vital Signs Temp 97.5 F L 12/08/23 08:00 Pulse 64 12/08/23 12:26 Resp 18 12/08/23 08:00 BP 108/51 12/08/23 08:00 Pulse Ox 97 12/08/23 08:00 FiO2 21 12/05/23 09:05 Intake & Output 12/07/23 12/08/23 12/08/23 18:59 06:59 18:59 Output Total 300 Balance -300 Weight 66.5 kg Output: Urine 300 Other: Voiding Method External Catheter External Catheter - Labs CBC & Chem 7: 12/07/23 05:03 12/08/23 04:52 Labs: Abnormal Lab Results - Last 24 Hours (Table) 12/07/23 12/07/23 12/08/23 Range/Units 16:10 19:16 04:52 BUN 64 H (7-17) mg/dL Creatinine 1.21 H (0.52-1.04) mg/dL Glucose 44 L* (74-99) mg/dL POC Glucose (mg/dL) 297 H 179 H (70-110) mg/dL 12/08/23 12/08/23 Range/Units 05:12 11:17 BUN (7-17) mg/dL Creatinine (0.52-1.04) mg/dL Glucose (74-99) mg/dL POC Glucose (mg/dL) 61 L 131 H (70-110) mg/dL Assessment and Plan Plan: Assessment: 1. 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 No proteinuria or blood on UA. Creatinine in the range of 1-1.3. Higher with diuresis. Stable. No hydronephrosis noted on kidney ultrasound. Kidneys atrophic. 2. Volume overload. Improving with diuresis. 3. Severe sepsis secondary to MRSA bacteremia with concern for paraspinal abscess. On antibiotics per infectious disease. Also seen by orthopedic surgery. 4. Anemia of chronic kidney disease. On Aranesp. 5. Diabetes mellitus. 6. Hypertension with chronic kidney disease. Controlled. 7. Mild hypokalemia from diuresis. Magnesium normal. Plan: Transition to oral Lasix. Avoid nephrotoxins. Continue to monitor renal function and urine output. Monitor vancomycin levels. Dose to be adjusted for renal function. Replace potassium.
--- NOTE | 2023-12-08 14:14 | P.PN ---
Subjective Progress Note Date: 12/08/23 Principal diagnosis: Reason for follow-up is MRSA bacteremia Patient is a 88-year-old female with a past medical history significant for diabetes mellitus hypertension pneumonia heart failure patient recently did have a fall leading to the right hip fracture status postsurgical repair since then the patient seem to have a problem with a nonhealing wound to the mid back area, patient was brought to the hospital for shortness of breath and hypoxemia she did have a positive culture with ESBL Klebsiella and blood culture positive for MRSA prompting this consultation On today's evaluation that is 12/08/2023, the patient continues to be afebrile, the patient is on 2 L nasal cannula oxygen and breathing comfortably, the Pt denies having any chest pain or cough, the patient denies having any abdominal pain no vomiting or any diarrhea has been reported by the nursing staff. Patient did have a creatinine 1.21 vancomycin 117 Objective - Vital Signs Vital signs: Vital Signs Temp 97.5 F L 12/08/23 08:00 Pulse 64 12/08/23 12:26 Resp 18 12/08/23 08:00 BP 108/51 12/08/23 08:00 Pulse Ox 97 12/08/23 08:00 FiO2 21 12/05/23 09:05 Intake & Output 12/07/23 12/08/23 12/08/23 18:59 06:59 18:59 Output Total 300 Balance -300 Weight 66.5 kg Output: Urine 300 Other: Voiding Method External Catheter External Catheter - Exam GENERAL DESCRIPTION: An elderly female lying in bed in no distress RESPIRATORY SYSTEM: Unlabored breathing , decreased breath sounds at bases HEART: S1 S2 regular rate and rhythm , ABDOMEN: Soft , no tenderness EXTREMITIES: No edema feet - Labs CBC & Chem 7: 12/07/23 05:03 12/08/23 04:52 Labs: Abnormal Lab Results - Last 24 Hours (Table) 12/07/23 12/07/23 12/08/23 Range/Units 16:10 19:16 04:52 BUN 64 H (7-17) mg/dL Creatinine 1.21 H (0.52-1.04) mg/dL Glucose 44 L* (74-99) mg/dL POC Glucose (mg/dL) 297 H 179 H (70-110) mg/dL 12/08/23 12/08/23 Range/Units 05:12 11:17 BUN (7-17) mg/dL Creatinine (0.52-1.04) mg/dL Glucose (74-99) mg/dL POC Glucose (mg/dL) 61 L 131 H (70-110) mg/dL Assessment and Plan (1) MRSA bacteremia Current Visit: Yes Status: Acute Code(s): R78.81 - BACTEREMIA; B95.62 - METHICILLIN RESIS STAPH INFCT CAUSING DISEASES CLASSD [id number] SNOMED Code(s): 79988160838127461 (2) Stage III pressure ulcer of back Current Visit: No Status: Acute Code(s): L89.103 - PRESSURE ULCER OF UNSP ECIFIED PART OF BACK, STAGE 3 SNOMED Code(s): 39635713539717944 Plan: 1patient with MRSA bacteremia in this patient presented to hospital with increasing shortness of breath however no significant cough or sputum production clinically not behaving as pneumonia the patient did have a wound to the mid back area did have some purulent drainage which has been culture and high clinical suspicion for possible lumbar spine disease versus paraspinal abscess 2- CT of the lumbar spine with contrast shows vertebral body loss at L1 question of super added infection, patient did have MRI of the lumbar spine which mention nonspecific T2 hyperintensity and gadolinium enhancement of the intervertebral disc and L1 vertebral body concerning for possible infection 3-patient has been evaluated by orthopedics and family agreed for surgery however the patient was considered to be high risk for any surgical procedure by anesthesia and surgery has been canceled 4-patient did get a PICC line prescription for vancomycin along with weekly labs in the computer system provided to the director of casework department and close outpatient follow- up Dictation was produced using [employer] dictation software. please excuse any grammatical, word or spelling errors. Time with Patient: Less than 30
[2023-12-08] MEDS: POTASSIUM CHLORIDE ER 20 MEQ TAB.ER PO STA (14:30)
[2023-12-08] MEDS: FUROSEMIDE 40 MG TAB PO SCH (15:35)
[2023-12-08 16:35] LABS: Glucose,Whole Blood 328 mg/dL (70-110)
[2023-12-09] MEDS ORDERED: INSULIN DETEMIR (LEVEMIR) 100 UNIT/ML SYR SQ SCH (07:00)
--- NOTE | 2023-12-10 07:59 | CDI ---
Documentation Clarification Form Date: 12/10/2023 From: Riana Sue Admit Date: 11/26/2023 03:46:00 PM Patient Name: Sherry Bernabe Visit Number: [id number] Discharge Date: 12/08/2023 05:10:00 PM ATTENTION: The Clinical Documentation Specialists (CDI) and [facility] Coding Staff appreciate your assistance in clarifying documentation. Please respond to the clarification below the line at the bottom and electronically sign. The CDI & [facility] Coding staff will review the response and follow-up if needed. Please note: Queries are made part of the Legal Health Record. If you have any questions, please contact the author of this message via ITS. Dr. Chelle Abdi, There is documentation of MRSA bacteremia is documented in Dr Richards consult on . Bacteremia is considered a lab finding. Additional clarification regarding bacteremia is requested. Patient history/risk factors: pneumonia, acute on chronic diastolic CHF, HTN, CKD 3a, [employer]/emphysema, T2DM: CKD, hyperglycemia Clinical Indicators: Severe sepsis secondary to MRSA bacteremia. WBC: 22.4 (2) Left Shift: 21.6 (2/) Lab: ESR 80 (3/5); Procalcitonin 0.35 (2/); Plasma lactic acid 1.4 () Blood Culture: MRSA Treatment: Azithromycin IV, Ceftriaxone Sodium IV, IV Vancomycin IV PICC placed Please provide additional clarification regarding the etiology/cause and/or clinical significance of the bacteremia: [ x ] Bacteremia is related to sepsis POA [ ] Bacteremia is related to sepsis Not POA [ ] Bacteremia is due to infectious process, please specify: [ ] Bacteremia is not clinically significant [ ] Other, please specify [ ] Unable to determine MTDD
--- NOTE | 2023-12-10 14:11 | P.DS ---
Providers Date of admission: 11/26/23 15:46 Attending physician: Chelle Abdi Consults: 11/26/23 23:18 Consult Physician Urgent Consulting Provider: Patti Turner Consult Reason/Comments: hypoxia, pna, chf Do you want consulting provider notified?: Yes, Notify in am 11/27/23 11:00 Consult Physician Routine Consulting Provider: Pb Feldman Consult Reason/Comments: CHF exac Do you want consulting provider notified?: Yes 11/29/23 15:21 Consult Physician Routine Consulting Provider: Bobby Hwang Consult Reason/Comments: ear pain;drainage,bleeding,loss of hearing Do you want consulting provider notified?: Yes 11/29/23 17:05 Consult Physician Routine Consulting Provider: Manoj Brunner Consult Reason/Comments: MRSA bacteremia Do you want consulting provider notified?: Yes 12/01/23 15:10 Consult Physician Routine Consulting Provider: Cristino Bolivar Consult Reason/Comments: L1 Osteo? abnormal CT Do you want consulting provider notified?: Yes 12/07/23 08:51 Consult Physician Urgent Consulting Provider: Evelio Martin Consult Reason/Comments: PICC line; elevated GFR needs clearance for PICC Do you want consulting provider notified?: Yes Primary care physician: Stated None Hospital Course: Final Diagnosis Acute pneumonia, community-acquired present on admission with acute on chronic hypoxic respiratory failure Acute on chronic diastolic congestive heart failure Chronic kidney disease stage IIIa with baseline creatinine 1-1.3. Possible acute urinary tract infection, present on admission with Klebsiella pneumonia in the urine, although suspicion is low most likely asymptomatic bacteriuria as patient was not having symptoms L1 compression fracture with severe degenerative joint disease, there is concern for lumbar discitis and osteomyelitis; felt to be high risk for surgical intervention. Gait dysfunction with generalized weakness Leukocytosis, improved Left ear pain with bleeding secondary to excoriation and trauma Diabetes mellitus type 2 MRSA bacteremia and sepsis, POA with source likely near the L1 compression fracture with concerns of paraspinal abscess, patient not a candidate for surgical intervention. Recent right-sided hip fracture with prolonged hospitalization at outside facility. Hypertension controlled Discharge Disposition Patient is stable for discharge home with overall guarded prognosis due to medical debility and weakness. Patient has PICC line placed to her right arm with recommendations for outpatient IV antibiotics with vancomycin for 6 weeks today. ID is following and patient to have repeat labs done weekly to monitor renal lab values. Patient will discharge home with nasal cannula oxygen support. Hydralazine and nifedipine have been discontinued as her blood pressure has been low normal we would recommend to continue monitoring her blood pressure at home and keep a log for follow-up with her population health coach. Long- acting insulin has been decreased to 20 units subcutaneous daily as she has been having episodes of hypoglycemia on the higher dose. Patient is been resumed on Lasix 40 mg today on discharge. Nephrology is recommending for patient to get back on Aranesp weekly we will send 1 dose and will recommend repeat labs for patient to follow-up with nephrology closely in the office. Patient needs multiple follow-ups. Patient again is at high risk for readmission as she has been at rehabilitation prior to this hospital stay and family is wanting to take the patient home. Hospital Course his is an 88-year-old female with medical history significant for hypertension, diabetes mellitus type 2, heart failure. Comes into the emergency room with complaints of shortness of breath and elevated blood sugar. Patient wears 2 L of oxygen at baseline however she was noted to be down to 86% with elevated blood glucose and brought into the hospital for further evaluation. Sent in by [facility] where she has been for rehabilitation. She was recently admitted to the hospital for an acute heart failure exacerbation along with generalized weakness and pneumonia. Also with a recent right-sided hip fracture with prolonged hospitalization at outside facility. Her prior admission positive for influenza A completed a course of Tamiflu and sent back to [facility]. Patient was noted to be dyspneic and brought back to the hospital. She does have worsening lower extremity edema and chest x-ray shows diffuse pulmonary edema and mild cardiomegaly with a superimposed multifocal pneumonia also in differential. She had a significantly elevated white blood cell count of 22.4 on admission with a BUN of 16 and creatinine of 1.23. Her glucose was noted to be 531 with a lactic acid of 1.4. Had a negative troponin level and an elevated proBNP at 3100. Her viral panel is negative for influenza RSV and COVID. Patient was admitted to the hospital medicine with a consult placed to pulmonary services and was started on azithromycin and Rocephin. She was found to have MRSA bacteremia with concern for spinal source. A lumbar CT reveals complete loss of vertebral body height of L1 vertebrae which is similar to prior superimposed infection has not excluded. There is moderate spinal canal stenosis at the level of L1 and severe neuroforaminal stenosis at L1-L2. Basic lumbar MRI reveals severe compression fracture and vertical height loss of L1 body with no palpable peripheral compression fracture L1 well. There is no definite extraspinal soft tissue fluid collection noted. There is a nonspecific T2 hyperintensity and gadolinium enhancement of the intervertebral discs at L1 vertebral body extending from T12-L1 to L1-2 nuclear medicine white blood cell scan can be added for specifically of the diagnosis of infection. Patient was evaluated by orthopedic surgery considered for surgery for L1 compression fracture however was found to not be a surgical candidate by anesthesia. Infectious disease consulted recommending 6 weeks of IV vancomycin therapy for the MRSA bacteremia which has been cleared on follow up blood cultures. Throughout this admission cardiology has been following for an acute heart failure exacerbation patient has diastolic dysfunction she did receive 2 ad ditional doses of IV Lasix states that she has been doing better she is no longer complaining of shortness of breath and she is been up and sitting in the chair and ambulating to the bathroom. Her renal function had worsened and she had a renal ultrasound done showing no hydronephrosis but this was a very limited assessment due to patient being in the recliner. There is small kidney size and cortical thickening suggesting chronic medical renal disease. White blood cell count has now normalized to 9.65. Hemoglobin stable at 9.0. Her BUN is 64, creatinine 1.21, her blood glucose has improved overall however she was having moments of hypoglycemia and we cut back on her long-acting insulin. Hemodynamically she is stable. She is denying shortness of breath denying chest discomfort she is not having any nausea vomiting or diarrhea. She has been sitting up in the chair and she is tolerating diet. She is alert x 3 although she is diffusely weak at this time. Please see medication reconciliation for a list of current medications. Thank you for allowing us to participate in the care of this patient. The impression and plan of care has been dictated by Rubi Glynn, Nurse Practitioner as directed. Dr. Bhargav MD I have performed a history and physical examination and medical decision making of this patient, discussed the same with the dictator, and agree with the dictators assessment and plan as written, documented as a scribe. Based on total visit time, I have performed more than 50% of this visit. Patient Condition at Discharge: Fair Plan - Discharge Summary Discharge Rx Participant: No New Discharge Prescriptions: New Darbepoetin Linden [Aranesp] 40 mcg SQ Q7D #1 each Continue carvediloL [Coreg] 25 mg PO BID Ergocalciferol (Vitamin D2) [Drisdol (50,000 Iu)] 1,250 mcg PO APPIAH rOPINIRole HCL [Requip] 4 mg PO BID Albuterol Sulfate [Albuterol Sulfate Hfa] 2 puff INHALATION RT-Q6H Insulin Lispro [Insulin Lispro Kwikpen U-100] See Protocol SQ AC-TID Furosemide [Lasix] 40 mg PO BID@0800,1600 predniSONE [Deltasone] 20 mg PO DAILY #2 tab Potassium Chloride ER [K-Dur 20] 40 meq PO BID tab Omeprazole 20 mg PO DAILY Aspirin [Vazalore] 81 mg PO DAILY Atorvastatin [Lipitor] 20 mg PO DAILY Collagenase [Santyl Ointment] 1 applic TOPICAL DAILY each DULoxetine HCL [Cymbalta] 60 mg PO BID Ipratropium-Albuterol Nebulize [Duoneb 0.5 mg-3 mg/3 ml Soln] 3 ml INHALATION DIRECTED Changed Insulin Glargine-Yfgn 20 units SQ DAILY #0 Discontinued hydrALAZINE HCL [Apresoline] 50 mg PO TID@0800,1300,1800 NIFEdipine XL [Procardia XL] 60 mg PO DAILY Discharge Medication List Ergocalciferol (Vitamin D2) [Drisdol (50,000 Iu)] 1,250 mcg PO APPIAH 10/08/23 [History] carvediloL [Coreg] 25 mg PO BID 10/08/23 [History] Potassium Chloride ER [K-Dur 20] 40 meq PO BID tab 10/19/23 [Rx] predniSONE [Deltasone] 20 mg PO DAILY #2 tab 10/19/23 [Rx] Albuterol Sulfate [Albuterol Sulfate Hfa] 2 puff INHALATION RT-Q6H 11/02/23 [History] Aspirin [Vazalore] 81 mg PO DAILY 11/02/23 [History] Atorvastatin [Lipitor] 20 mg PO DAILY 11/02/23 [History] Omeprazole 20 mg PO DAILY 11/02/23 [History] rOPINIRole HCL [Requip] 4 mg PO BID 11/02/23 [History] Collagenase [Santyl Ointment] 1 applic TOPICAL DAILY each 11/06/23 [Rx] DULoxetine HCL [Cymbalta] 60 mg PO BID 11/26/23 [History] Furosemide [Lasix] 40 mg PO BID@0800,1600 11/26/23 [History] Insulin Lispro [Insulin Lispro Kwikpen U-100] See Protocol SQ AC-TID 11/26/23 [History] Ipratropium-Albuterol Nebulize [Duoneb 0.5 mg-3 mg/3 ml Soln] 3 ml INHALATION DIRECTED 11/26/23 [History] Darbepoetin Linden [Aranesp] 40 mcg SQ Q7D #1 each 12/08/23 [Rx] Insulin Glargine-Yfgn 20 units SQ DAILY #0 12/08/23 [Rx] Follow up Appointment(s)/Referral(s): [facility] [NON-STAFF] - As Needed (nebulizer) [facility], [REFERRING] - As Needed (Antibiotics will be delivered to home tonight between 6-8p.) [facility] [NON-STAFF] - As Needed Cristino Bolivar DO [Doctor of Osteopathic Medicine] - As Needed Evelio Martin DO [STAFF PHYSICIAN] - 1 Week (office closed at time of discharge. Please call to schedule appointment ) Manoj Brunner MD [STAFF PHYSICIAN] - 1 Week (office not answering please call to schedule appointment ) Reji Gruber MD [STAFF PHYSICIAN] - 12/16/23 1:15 pm Patti Turner MD [STAFF PHYSICIAN] - 1 Week PRAVEEN PARHAM MD [REFERRING] - 1-2 Days Ambulatory/Diagnostic Orders: Basic Metabolic Panel [LAB.AMB] Location: None Selected Basic Metabolic Panel [LAB.AMB] Location: None Selected C Reactive Protein [LAB.AMB] Location: None Selected C Reactive Protein [LAB.AMB] Location: None Selected Complete Blood Count w/diff [LAB.AMB] Location: None Selected Erythrocyte Sedimentation Rate [LAB.AMB] Location: None Selected Erythrocyte Sedimentation Rate [LAB.AMB] Location: None Selected Complete Blood Count w/diff [LAB.AMB] Location: None Selected Patient Instructions/Handouts: Heart Failure (DC), Leg Edema (ED) Activity/Diet/Wound Care/Special Instructions: Patient discharging with 6 weeks of IV vancomcyin through PICC line pharmacy to dose Follow up with Dr. Brunner in 1 week for further management Follow up with Dr Bolivar as needed Follow up with your population health coach in 1 to 2 weeks; Dr. Gruber Follow up with eligibility examiner Dr. Martin Follow up with level vial inspector and tester Dr. Turner Repeat labs weekly while on IV antibiotics See your PCP Dr. Parham in 1 to 2 days. Discharge Disposition: HOME WITH HOME HEALTH SERVICES
== END 2023-12-08 17:10 | disposition home health service (06) | DRG 871 ==
LOC: EC 12:40 → 4SSUR 15:46
PROVIDERS: ADMIT Internal Medicine; ATTEND Internal Medicine
PROC: 02HV33Z Insertion of Infusion Device into Superior Vena Cava, Percutaneous Approach (ICD-10-PCS; principal; 2023-12-07 08:25)
DX: A41.02 Sepsis due to Methicillin resistant Staphylococcus aureus (principal); I50.33 Acute on chronic diastolic (congestive) heart failure; L89.123 Pressure ulcer of left upper back, stage 3; L89.113 Pressure ulcer of right upper back, stage 3; J18.9 Pneumonia, unspecified organism; J96.21 Acute and chronic respiratory failure with hypoxia; N17.9 Acute kidney failure, unspecified; I13.0 Hypertensive heart and chronic kidney disease with heart failure and stage 1 through stage 4 chronic kidney disease, or unspecified chronic kidney disease; M48.56XA Collapsed vertebra, not elsewhere classified, lumbar region, initial encounter for fracture; N39.0 Urinary tract infection, site not specified; J44.1 Chronic obstructive pulmonary disease with (acute) exacerbation; J44.0 Chronic obstructive pulmonary disease with (acute) lower respiratory infection; I27.29 Other secondary pulmonary hypertension; E11.649 Type 2 diabetes mellitus with hypoglycemia without coma; D63.1 Anemia in chronic kidney disease; H92.22 Otorrhagia, left ear; E11.22 Type 2 diabetes mellitus with diabetic chronic kidney disease; R65.20 Severe sepsis without septic shock; E11.65 Type 2 diabetes mellitus with hyperglycemia; N18.31 Chronic kidney disease, stage 3a; J43.9 Emphysema, unspecified; I08.1 Rheumatic disorders of both mitral and tricuspid valves; Z79.4 Long term (current) use of insulin; M48.061 Spinal stenosis, lumbar region without neurogenic claudication; M47.816 Spondylosis without myelopathy or radiculopathy, lumbar region; M40.209 Unspecified kyphosis, site unspecified; B96.1 Klebsiella pneumoniae [K. pneumoniae] as the cause of diseases classified elsewhere; E87.6 Hypokalemia; E87.5 Hyperkalemia; E78.00 Pure hypercholesterolemia, unspecified; I25.10 Atherosclerotic heart disease of native coronary artery without angina pectoris; R26.9 Unspecified abnormalities of gait and mobility; H91.90 Unspecified hearing loss, unspecified ear; R32 Unspecified urinary incontinence; N27.0 Small kidney, unilateral; Z53.20 Procedure and treatment not carried out because of patient's decision for unspecified reasons; Z79.82 Long term (current) use of aspirin; Z79.52 Long term (current) use of systemic steroids; Z79.899 Other long term (current) drug therapy; Z86.14 Personal history of Methicillin resistant Staphylococcus aureus infection; Z91.81 History of falling; Z71.3 Dietary counseling and surveillance
CPT/HCPCS: 36415; 36573; 71045; 71046; 72132; 72157; 72158; 76770; 80048; 80053; 80202; 81001; 82009; 82565; 83605; 83735; 83880; 84100; 84132; 84145; 84443; 84484; 85025; 85379; 85610; 85652; 85730; 86140; 86850; 86870; 86880; 86900; 86901; 87040; 87070; 87075; 87077; 87086; 87186; 87205; 87449; 87636; 93005; 94640; 94760; 96365; 96366; 96367; 96375; 99291

== ENCOUNTER 2023-12-10 12:02 | Emergency (ER) | payer MEDICARE, BC ==
[2023-12-10] MEDS: LIDOCAINE 1% INJ 10MG/ML (30 ML VIAL-PF) SQ ONE (14:30)
--- NOTE | 2023-12-10 14:43 | P.OP ---
Date of Procedure: 12/10/23 Description of Procedure: Preoperative Diagnosis: Need for long-term IV antibiotic access. Self removal of PICC line Postoperative Diagnosis: Same. Procedure(s) Performed: Ultrasound-guided cannulation right basilic vein. Insertion of peripherally inserted central catheter under fluoroscopic guidance. Anesthesia: local 1% lidocaine plain Surgeon: Citlalli Estimated Blood Loss (ml): 5 IV fluids (ml): 0 Urine output (ml): 0 Pathology: none sent Condition: stable Disposition: no change Indications for Procedure: Patient requires long-term IV antibiotics as an outpatient patient is offered a PICC line to allow for intravenous administration of antibiotics. Description of Procedure: Patient was brought to the special procedure suite. The right upper extremity sterilely prepped and draped in usual manner. Ultrasound was utilized to identify the basilic vein which was normally compressible free of visible thrombus. Permenant image was stored. 1% Xylocaine was utilized for local anesthesia tissues overlying the vein. Through this anesthetized area and with the aid of ultrasound a micropuncture needle was utilized to cannulate the vein. Once cannulated, Softip guidewire was advanced into the vein. The needle was withdrawn and a micropuncture sheath and dilator advanced over the guidewire. The guidewire was withdrawn and exchanged for the PICC guidewire and measured 38 cm to the cavoatrial junction. The catheter was cut to size and advanced into the cavoatrial junction without resistance. The sheath was peeled away. Blood was easily withdrawn through the catheter and the catheter was then flushed with heparinized saline solution and secured to the skin. Patient tolerated procedure well and was returned to their room in satisfactory and stable condition.
[2023-12-10 15:16] VITALS: BP 120/61; PULSE 75; RESP 18; TEMP 98.4
--- NOTE | 2023-12-10 18:54 | ED ---
General Adult HPI - General Chief complaint: Recheck/Abnormal Lab/Rx Stated complaint: ABN Labs Time Seen by Provider: 12/10/23 12:25 Source: patient, RN notes reviewed Mode of arrival: ambulatory Limitations: no limitations - History of Present Illness Initial comments: 88-year-old female presents to the emergency department for PICC line issues. Patient states that last night her PICC line in the right upper extremity came out while she was sleeping. She is using this to receive IV vancomycin for MRSA positive blood cultures. She states that she has been doing well overall. She denies any recent fever. The PICC was placed by Dr. Lennon while she was admitted recently. - Related Data Home Medications Medication Instructions Recorded Confirmed Ergocalciferol (Vitamin D2) 1,250 mcg PO APPIAH 10/08/23 12/14/23 [Drisdol (50,000 Iu)] Albuterol Sulfate [Albuterol 2 puff INHALATION RT-Q6H 11/02/23 12/14/23 Sulfate Hfa] Atorvastatin [Lipitor] 20 mg PO DAILY 11/02/23 12/14/23 Omeprazole 20 mg PO DAILY 11/02/23 12/14/23 rOPINIRole HCL [Requip] 4 mg PO BID 11/02/23 12/14/23 DULoxetine HCL [Cymbalta] 60 mg PO BID 11/26/23 12/14/23 Furosemide [Lasix] 40 mg PO BID@0800,1600 11/26/23 12/14/23 Insulin Lispro [Insulin Lispro See Protocol SQ AC-TID 11/26/23 12/14/23 Kwikpen U-100] Ipratropium-Albuterol Nebulize 3 ml INHALATION RT-BID 11/26/23 12/14/23 [Duoneb 0.5 mg-3 mg/3 ml Soln] Aspirin EC [Ecotrin Low Dose] 81 mg PO DAILY 12/14/23 12/14/23 NIFEdipine XL [Procardia XL] 60 mg PO DAILY 12/14/23 12/14/23 Previous Rx's Medication Instructions Recorded Potassium Chloride ER [K-Dur 20] 40 meq PO BID tab 10/19/23 Collagenase [Santyl Ointment] 1 applic TOPICAL DAILY each 11/06/23 Darbepoetin Linden [Aranesp] 40 mcg SQ Q7D #1 each 12/08/23 Insulin Glargine-Yfgn 20 units SQ DAILY #0 12/08/23 carvediloL [Coreg*] 12.5 mg PO BID-W/MEALS #60 tab 12/15/23 hydrALAZINE HCL [Apresoline] 50 mg PO BID #60 tab 12/15/23 predniSONE See Taper PO DIRECTED 3 Days #3 12/15/23 tab Allergies Allergy/AdvReac Type Severity Reaction Status Date / Time No Known Allergies Allergy Verified 12/14/23 14:59 Review of Systems ROS Statement: Those systems with pertinent positive or pertinent negative responses have been documented in the HPI. ROS Other: All systems not noted in ROS Statement are negative. Past Medical History Past Medical History: Heart Failure, Diabetes Mellitus, Hypertension, Pneumonia Additional Past Medical History / Comment(s): new CHF 09/2023, "kidney damage" History of Any Multi-Drug Resistant Organisms: MRSA Date of last positivie culture/infection: 11/26/23 MDRO Source:: Blood Past Surgical History: Hysterectomy Additional Past Surgical History / Comment(s): R hip, cataract sx Past Anesthesia/Blood Transfusion Reactions: No Reported Reaction Past Psychological History: No Psychological Hx Reported Smoking Status: Never smoker Past Alcohol Use History: None Reported Past Drug Use History: None Reported General Exam Limitations: no limitations General appearance: alert, in no apparent distress Head exam: Present: atraumatic, normocephalic, normal inspection Eye exam: Present: normal appearance, PERRL, EOMI. Absent: scleral icterus, conjunctival injection, periorbital swelling ENT exam: Present: normal exam, mucous membranes moist Respiratory exam: Present: normal lung sounds bilaterally. Absent: respiratory distress, wheezes, rales, rhonchi, stridor Cardiovascular Exam: Present: regular rate, normal rhythm, normal heart sounds. Absent: systolic murmur, diastolic murmur, rubs, gallop, clicks Extremities exam: Present: normal inspection, full ROM, normal capillary refill. Absent: tenderness, pedal edema, joint swelling, calf tenderness Neurological exam: Present: alert, oriented X3 Psychiatric exam: Present: normal affect, normal mood Skin exam: Present: warm, dry, intact, other (Ecchymosis to right upper arm ). Absent: normal color Course Vital Signs 12/10/23 12/10/23 12/10/23 12:15 13:48 14:45 Temperature 97.4 F L 97.6 F 98.4 F Pulse Rate 62 61 Pulse Rate [ 75 Left Supine Operations Coordinator ] Respiratory 18 16 18 Rate Blood Pressure 115/73 114/66 Blood Pressure 120/61 [Left Arm Sitting] O2 Sat by Pulse 94 L 95 93 L Oximetry Procedures - [facility] [place] Protocol (Time Out) Patient Identification (2 identifiers required): Chart, Verbal, Arm Band, Name, Birthdate Patient/Legal Network Project Manager has Confirmed: Identity, Procedure, Consent Site Marked: Not Applicable Medical Decision Making - Medical Decision Making Was pt. sent in by a medical professional or institution (, ARASH, MOLDED GOODS CONTROLS OPERATOR, urgent care, hospital, or fci...) When possible be specific @ -No Did you speak to anyone other than the patient for history (EMS, parent, family, police, friend...)? What history was obtained from this source @ -No Did you review nursing and triage notes (agree or disagree)? Why? @ -I reviewed and agree with nursing and triage notes Were old charts reviewed (outside hosp., previous admission, EMS record, old EKG, old radiological studies, urgent care reports/EKG's, fci records)? Report findings @ -No old charts were reviewed Differential Diagnosis (chest pain, altered mental status, abdominal pain women, abdominal pain men, vaginal bleeding, weakness, fever, dyspnea, syncope, headache, dizziness, GI bleed, back pain, seizure, CVA, palpatations, mental health, musculoskeletal)? @ -Not applicable EKG interpreted by me (3pts min.). @ -None X-rays interpreted by me (1pt min.). @ -None done CT interpreted by me (1pt min.). @ -None done U/S interpreted by me (1pt. min.). @ -None done What testing was considered but not performed or refused? (CT, X-rays, U/S, labs)? Why? @ -None What meds were considered but not given or refused? Why? @ -None Did you discuss the management of the patient with other professionals (professionals i.e. , PA, MOLDED GOODS CONTROLS OPERATOR, lab, RT, psych nurse, 7th grade social studies teacher, house manager, teacher, facilities officer, caseworker)? Give summary @ -Discussed with Dr. Lennon who will place new PICC line today Was smoking cessation discussed for >3mins.? @ -No Was critical care preformed (if so, how long)? @ -No Were there social determinants of health that impacted care today? How? (Homelessness, low income, unemployed, alcoholism, drug addiction, transportation, low edu. Level, literacy, decrease access to med. care, fpc, rehab)? @ -No Was there de-escalation of care discussed even if they declined (Discuss DNR or withdrawal of care, Hospice)? DNR status @ -No What co-morbidities impacted this encounter? (DM, HTN, Smoking, COPD, CAD, Cancer, CVA, ARF, Chemo, Hep., AIDS, mental health diagnosis, sleep apnea, morbid obesity)? @ -None Was patient admitted / discharged? Hospital course, mention meds given and route, prescriptions, significant lab abnormalities, going to OR and other pertinent info. @ -Patient presented to the emergency department for PICC line issue. Patient states that while sleeping her PICC line came out. She is receiving IV vancomycin through this for MRSA positive blood cultures. She follows with Dr. Brunner for this. Case was discussed with Dr. Lennon. Patient will be taken to get a new PICC line placed today by Dr. Lennon. Undiagnosed new problem with uncertain prognosis? @ -No Drug Therapy requiring intensive monitoring for toxicity (Heparin, Nitro, Insulin, Cardizem)? @ -No Were any procedures done? @ -No Diagnosis/symptom? @ -PICC line issue Acute, or Chronic, or Acute on Chronic? @ -Acute Uncomplicated (without systemic symptoms) or Complicated (systemic symptoms)? @ -Uncomplicated Side effects of treatment? @ -No Exacerbation, Progression, or Severe Exacerbation? @ -No Poses a threat to life or bodily function? How? (Chest pain, USA, DC, pneumonia, PE, COPD, DKA, ARF, appy, cholecystitis, CVA, Diverticulitis, Homicidal, Suicidal, threat to staff... and all critical care pts) @ -No Disposition Clinical Impression: S/P PICC central line placement Disposition: HOME SELF-CARE Instructions (If sedation given, give patient instructions): Central Line Associated Bloodstream Infection (DC), PICC (Peripherally Inserted Central Catheter) (DC) Additional Instructions: ok to use picc line for antibiotics Care of puncture site: Do not use blood pressure cuffs, tourniquets on arm with PICC line. Do not force flushing of picc line. Clean top to picc line prior to accessing line every time with alcohol wipe to prevent infection. Flush line with saline after use and blood draws. if PICC line looks like it is coming out, tape down and contact Dr Brunner's office for further instructions. Do not remove line as it might be possible to save line. monitor for signs of infection ie: fever, rash, drainage around puncture site, swelling, pain contact doctor for further instructions. Do not get PICC line wet. Cover with saran wrap and tape to prevent dressing from getting wet/prevent infection of line. Is patient prescribed a controlled substance at d/c from ED?: No Referrals: None,Stated [Primary Care Provider] - 1-2 days
--- NOTE | 2023-12-11 09:08 | IR ---
EXAMINATION TYPE: IR cvc insert >=5 years Intraoperative/procedural fluoroscopic services were provid ed. CLINICAL INDICATION:Female, 88 years old with history of Abx, 0.3m/0.474DAP, 4F 38cm rt basilic PICC; , [facility] Total fluoroscopy time is 0.3 min. DAP: 0.474 Gycm2 Please see the operative/procedural note for further details.
== END 2023-12-10 14:30 | disposition home or self-care (01) ==
LOC: EC 12:02
DX: Z45.2 Encounter for adjustment and management of vascular access device (principal)
CPT/HCPCS: 99283; 36573; C1751; C1769; J2001; 90471

== ENCOUNTER 2023-12-14 11:52 | Observation (INO) | payer MEDICARE, BC ==
--- NOTE | 2023-12-14 13:00 | XR ---
EXAMINATION TYPE: XR chest 2V DATE OF EXAM: 12/14/2023 12:56 PM CLINICAL INDICATION:Female, 88 years old with history of chf; [facility] COMPARISON: Chest radiographs from 12/06/2023. TECHNIQUE: XR chest 2V Frontal and lateral views of the chest. FINDINGS: Lungs/Pleura: There is no evidence of pleural effusion, focal consolidation, or pneumothorax. Pulmonary vascularity: Pulmonary vascular congestion. Heart/mediastinum: Cardiomediastinal silhouette is enlarged and stable. Musculoskeletal: No acute osseous pathology. Other findings: None IMPRESSION: Cardiomegaly and mild pulmonary vascular congestion. Correlate with BNP for congestive heart failure.
--- NOTE | 2023-12-14 13:03 | ED ---
General Adult HPI - General Chief complaint: Recheck/Abnormal Lab/Rx Stated complaint: New Picc Line Time Seen by Provider: 12/14/23 12:00 Source: patient, family Mode of arrival: wheelchair Limitations: no limitations - History of Present Illness Initial comments: 88-year-old female with past medical history of congestive heart failure, chron ic kidney disease, recent MRSA bacteremia who presents after she pulled her PICC line out. PICC line was placed for vancomycin administration. It was originally placed on the . Patient ended up pulling out her PICC line and it was reinserted on the . Daughters present today stating that the patient pulled out last night in her sleep. She did not receive her dose today. Home care nurse was also unable to draw any blood work for the infectious disease doctor. Family is requesting chest x-ray as they did provide the patient with an extra dose of Lasix as they thought that she was retaining some fluid. States that they have not had any increased work of breathing or lower extremity swelling since that isolated 1 extra dose. patient cannot provide any history - Related Data Home Medications Medication Instructions Recorded Confirmed Ergocalciferol (Vitamin D2) 1,250 mcg PO APPIAH 10/08/23 11/26/23 [Drisdol (50,000 Iu)] carvediloL [Coreg] 25 mg PO BID 10/08/23 11/26/23 Albuterol Sulfate [Albuterol 2 puff INHALATION RT-Q6H 11/02/23 11/26/23 Sulfate Hfa] Aspirin [Vazalore] 81 mg PO DAILY 11/02/23 11/26/23 Atorvastatin [Lipitor] 20 mg PO DAILY 11/02/23 11/26/23 Omeprazole 20 mg PO DAILY 11/02/23 11/26/23 rOPINIRole HCL [Requip] 4 mg PO BID 11/02/23 11/26/23 DULoxetine HCL [Cymbalta] 60 mg PO BID 11/26/23 11/26/23 Furosemide [Lasix] 40 mg PO BID@0800,1600 11/26/23 11/26/23 Insulin Lispro [Insulin Lispro See Protocol SQ AC-TID 11/26/23 11/26/23 [place] U-100] Ipratropium-Albuterol Nebulize 3 ml INHALATION DIRECTED 11/26/23 11/26/23 [Duoneb 0.5 mg-3 mg/3 ml Soln] Previous Rx's Medication Instructions Recorded Potassium Chloride ER [K-Dur 20] 40 meq PO BID tab 10/19/23 predniSONE [Deltasone] 20 mg PO DAILY #2 tab 10/19/23 Collagenase [Santyl Ointment] 1 applic TOPICAL DAILY each 11/06/23 Darbepoetin [place] [Aranesp] 40 mcg SQ Q7D #1 each 12/08/23 Insulin Glargine-Yfgn 20 units SQ DAILY #0 12/08/23 Allergies Allergy/AdvReac Type Severity Reaction Status Date / Time No Known Allergies Allergy Verified 12/14/23 12:00 Review of Systems ROS Statement: Those systems with pertinent positive or pertinent negative responses have been documented in the HPI. ROS Other: All systems not noted in ROS Statement are negative. Past Medical History Past Medical History: Heart Failure, Diabetes Mellitus, Hypertension, Pneumonia Additional Past Medical History / Comment(s): new CHF 09/2023, "kidney damage" History of Any Multi-Drug Resistant Organisms: MRSA Date of last positivie culture/infection: 11/26/23 MDRO Source:: Blood Past Surgical History: Hysterectomy Additional Past Surgical History / Comment(s): R hip, cataract sx Past Anesthesia/Blood Transfusion Reactions: No Reported Reaction Past Psychological History: No Psychological Hx Reported Smoking Status: Never smoker Past Alcohol Use History: None Reported Past Drug Use History: None Reported General Exam Limitations: altered mental status General appearance: alert, in no apparent distress Head exam: Present: atraumatic, normocephalic, normal inspection Eye exam: Present: normal appearance, PERRL, EOMI. Absent: scleral icterus, conjunctival injection, periorbital swelling ENT exam: Present: normal exam, mucous membranes moist Neck exam: Present: normal inspection. Absent: tenderness, meningismus, lymphadenopathy Respiratory exam: Present: normal lung sounds bilaterally. Absent: respiratory distress, wheezes, rales, rhonchi, stridor Cardiovascular Exam: Present: regular rate, normal rhythm, normal heart sounds. Absent: systolic murmur, diastolic murmur, rubs, gallop, clicks GI/Abdominal exam: Present: soft, normal bowel sounds. Absent: distended, tenderness, guarding, rebound, rigid Extremities exam: Present: full ROM, normal capillary refill, other (PICC line right upper extremity externalized). Absent: tenderness, pedal edema, joint swelling, calf tenderness Back exam: Present: normal inspection Neurological exam: Present: alert, oriented X3, CN II-XII intact Psychiatric exam: Present: normal affect, normal mood Skin exam: Present: warm, dry, intact, normal color. Absent: rash Course Vital Signs 12/14/23 11:58 Temperature 97.6 F Pulse Rate 58 L Respiratory 20 Rate Blood Pressure 93/50 O2 Sat by Pulse 94 L Oximetry Medical Decision Making - Medical Decision Making Was pt. sent in by a medical professional or institution (, [facility], WOMEN'S GARMENT [employer]TER, urgent care, hospital, or correction...) When possible be specific @ -Patient sent in from her home care nurse Did you speak to anyone other than the patient for history (EMS, parent, family, police, friend...)? What history was obtained from this source @ -Spoke with the patient's daughter Did you review nursing and triage notes (agree or disagree)? Why? @ -I reviewed and agree with nursing and triage notes Were old charts reviewed (outside hosp., previous admission, EMS record, old EKG, old radiological studies, urgent care reports/EKG's, correction records)? Report findings @ -I reviewed patient's ED visit from December 06 where she had her PICC line replaced Differential Diagnosis (chest pain, altered mental status, abdominal pain women, abdominal pain men, vaginal bleeding, weakness, fever, dyspnea, syncope, headache, dizziness, GI bleed, back pain, seizure, CVA, palpatations, mental health, musculoskeletal)? @ -PICC line malfunction, clotted PICC line, dislodged PICC line EKG interpreted by me (3pts min.). @ -Not done X-rays interpreted by me (1pt min.). @ -Yes and demonstrates mild pulmonary vascular congestion CT interpreted by me (1pt min.). @ -None done U/S interpreted by me (1pt. min.). @ -None done What testing was considered but not performed or refused? (CT, X-rays, U/S, labs)? Why? @ -None What meds were considered but not given or refused? Why? @ -None Did you discuss the management of the patient with other professionals (professionals i.e. , PA, WOMEN'S GARMENT [employer]TER, lab, RT, psych nurse, psychiatric social worker supervisor, construction skills teacher, teacher, returning officer, community case manager)? Give summary @ -Spoke with interventional radiology, Merced Howe from vascular office, surgical pretesting, Dr. Brunner - unable to obtain PICC line placement today as patient needs H&P and order in computer. Procedure will be performed at 1230 tomorrow however patient will need admission Was smoking cessation discussed for >3mins.? @ -No Was critical care preformed (if so, how long)? @ -No Were there social determinants of health that impacted care today? How? (Homelessness, low income, unemployed, alcoholism, drug addiction, transportation, low edu. Level, literacy, decrease access to med. care, chcf, rehab)? @ -No Was there de-escalation of care discussed even if they declined (Discuss DNR or withdrawal of care, Hospice)? DNR status @ -No What co-morbidities impacted this encounter? (DM, HTN, Smoking, COPD, CAD, Cancer, CVA, ARF, Chemo, Hep., AIDS, mental health diagnosis, sleep apnea, morbid obesity)? @ -CHF, CKD Was patient admitted / discharged? Hospital course, mention meds given and route, prescriptions, significant lab abnormalities, going to OR and other pertinent info. @ -Upon arrival patient placed into room 31. Thorough history and physical exam was performed. We did obtain IV access. Dose of Vanco is administered. I did obtain laboratory studies. Family is requesting chest x-ray which is performed. I do speak to many in regards to having the PICC line placed. Unfortunately patient cannot obtain her PICC line until 1230 tomorrow needs to be inpatient to have this completed. I spoke with Dr. Abdi who agreed to observe the patient overnight Undiagnosed new problem with uncertain prognosis? @ -No Drug Therapy requiring intensive monitoring for toxicity (Heparin, Nitro, Insulin, Cardizem)? @ -No Were any procedures done? @ -No Diagnosis/symptom? @ -Acute PICC dislodgment, history of MRSA bacteremia Acute, or Chronic, or Acute on Chronic? @ -Acute Uncomplicated (without systemic symptoms) or Complicated (systemic symptoms)? @ -Complicated Side effects of treatment? @ -No Exacerbation, Progression, or Severe Exacerbation? @ -No Poses a threat to life or bodily function? How? (Chest pain, [place], [place], pneumonia, PE, COPD, DKA, ARF, appy, cholecystitis, CVA, Diverticulitis, Homicidal, Suicidal, threat to staff... and all critical care pts) @ -No - Lab Data Result diagrams: 12/14/23 12:58 12/14/23 12:58 Lab Results 12/14/23 12/14/23 Range/Units 12:58 12:58 WBC 9.5 (3.8-10.6) k/uL RBC 3.18 L (3.80-5.40) m/uL Hgb 9.8 L (11.4-16.0) gm/dL Hct 30.7 L (34.0-46.0) % MCV 96.4 (80.0-100.0) fL MCH 30.6 (25.0-35.0) pg MCHC 31.8 (31.0-37.0) g/dL RDW 16.9 H (11.5-15.5) % Plt Count 253 (150-450) k/uL MPV 8.9 Neutrophils % 90 % Lymphocytes % 6 % Monocytes % 3 % Eosinophils % 1 % Basophils % 0 % Neutrophils # 8.5 H (1.3-7.7) k/uL Lymphocytes # 0.5 L (1.0-4.8) k/uL Monocytes # 0.3 (0-1.0) k/uL Eosinophils # 0.1 (0-0.7) k/uL Basophils # 0.0 (0-0.2) k/uL Hypochromasia Slight Anisocytosis Slight Macrocytosis Slight Sodium 140 (137-145) mmol/L Potassium 4.6 (3.5-5.1) mmol/L Chloride 108 H (98-107) mmol/L Carbon Dioxide 27 (22-30) mmol/L Anion Gap 5 mmol/L BUN 72 H (7-17) mg/dL Creatinine 1.62 H (0.52-1.04) mg/dL Est GFR (CKD-EPI)AfAm 33 (>60 ml/min/1.73 sqM) Est GFR (CKD-EPI)NonAf 28 (>60 ml/min/1.73 sqM) Glucose 131 H (74-99) mg/dL Calcium 8.9 (8.4-10.2) mg/dL Total Bilirubin 0.7 (0.2-1.3) mg/dL AST 26 (14-36) U/L ALT 40 H (4-34) U/L Alkaline Phosphatase 202 H (38-126) U/L C-Reactive Protein 0.8 (<1.0) mg/dL Total Protein 6.3 (6.3-8.2) g/dL Albumin 3.4 L (3.5-5.0) g/dL Disposition Clinical Impression: MRSA bacteremia, Occlusion of peripherally inserted central catheter (PICC) line Disposition: ADMITTED IP TO THIS [facility] Condition: Stable Is patient prescribed a controlled substance at d/c from ED?: No Referrals: None,Stated [Primary Care Provider] - 1-2 days Time of Disposition: 14:19 Decision to Admit Reason: Admit from EC Decision Date: 12/14/23 Decision Time: 14:19
[2023-12-14 13:34] LABS: Anisocytosis Slight; Basophils % (A) 0 %; Eosinophils # (A) 0.1 k/uL (0-0.7); Eosinophils % (A) 1 %; HCT 30.7 % (34.0-46.0); HGB 9.8 gm/dL (11.4-16.0); Hypochromasia Slight; Lymphocytes # (A) 0.5 k/uL (1.0-4.8); Lymphocytes % (A) 6 %; MCH 30.6 pg (25.0-35.0); MCHC 31.8 g/dL (31.0-37.0); MCV 96.4 fL (80.0-100.0); Macrocytosis Slight; Mean Platelet Volume 8.9; Monocytes # (A) 0.3 k/uL (0-1.0); Monocytes % (A) 3 %; Neutrophils # (A) 8.5 k/uL (1.3-7.7); Neutrophils % (A) 90 %; Platelet Count 253 k/uL (150-450); RBC 3.18 m/uL (3.80-5.40); RDW 16.9 % (11.5-15.5); WBC 9.5 k/uL (3.8-10.6)
[2023-12-14] MEDS: VANCOMYCIN 750 MG in SODIUM CHLORIDE 0.9% 250 ML IVPB STA (13:42)
[2023-12-14 13:49] LABS: ALT 40 U/L (4-34); AST 26 U/L (14-36); African American GFR (CKD) 33 (>60 ml/min/1.73 sqM); Albumin 3.4 g/dL (3.5-5.0); Alkaline Phosphatase 202 U/L (38-126); Anion Gap 5 mmol/L; Blood Urea Nitrogen 72 mg/dL (7-17); C Reactive Protein 0.8 mg/dL (<1.0); Calcium 8.9 mg/dL (8.4-10.2); Carbon Dioxide 27 mmol/L (22-30); Chloride 108 mmol/L (98-107); Glucose 131 mg/dL (74-99); Non-African American GFR(CKD) 28 (>60 ml/min/1.73 sqM); Potassium 4.6 mmol/L (3.5-5.1); Sodium 140 mmol/L (137-145); Total Bilirubin 0.7 mg/dL (0.2-1.3); Total Protein 6.3 g/dL (6.3-8.2)
[2023-12-14] MEDS ORDERED: NALOXONE 0.4 MG/ML 1 ML VIAL IV PRN (14:20)
[2023-12-14 14:37] LABS: Glucose,Whole Blood 182 mg/dL (70-110)
[2023-12-14 16:09] LABS: Erythrocyte Sedimentation Rate 40 mm/Hr (0-30)
[2023-12-14 16:20] VITALS: RESP 16
[2023-12-14] MEDS ORDERED: DEXTROSE 50% SYRINGE 50 ML IVP PRN ×2 (16:38)
[2023-12-14] MEDS: hydrALAZINE HCL 50 MG TAB PO SCH (17:21)
[2023-12-14 17:24] LABS: Glucose,Whole Blood 233 mg/dL (70-110)
[2023-12-14] MEDS: carvediloL 12.5 MG TAB PO SCH (17:57)
[2023-12-14] MEDS: INSULIN ASPART (NovoLOG) 100 UNIT/ML VIAL SQ SCH (17:57)
[2023-12-14] MEDS ORDERED: ALBUTEROL NEBULIZED 2.5 MG/3 ML INHALATION SCH (20:00)
[2023-12-14 20:15] LABS: Glucose,Whole Blood 352 mg/dL (70-110)
[2023-12-14] MEDS: IPRATROPIUM-ALBUTEROL 3 ML NEB INHALATION SCH (21:08)
[2023-12-14] MEDS: POTASSIUM CHLORIDE ER 20 MEQ TAB.ER PO SCH (21:13)
[2023-12-14] MEDS: rOPINIRole HCL 4 MG TABLET PO SCH (21:14)
[2023-12-14] MEDS: DULoxetine HCL 60 MG CAPSULE.DR PO SCH (21:14)
--- NOTE | 2023-12-15 00:11 | P.HPIM ---
History of Present Illness H&P Date: 12/14/23 Chief Complaint: PICC line came out Patient is a 88-year-old female with a past medical history of chronic CHF, CKD stage III, L1 compression fracture with severe degenerative joint disease and concern for lumbar discitis and osteomyelitis diabetes type 2 MRSA bacteremia an d sepsis and recent right-sided hip fracture with prolonged hospitalization at outside hospital facility, hypertension and recent pneumonia and acute on chronic hypoxic respiratory failure. Patient was discharged home with IV antibiotics via PICC line for 6 weeks total. Patient received about a week of antibiotics. She was discharged on 12/08/2023. Patient had thoracic/lumbar spine MRI and was seen by orthopedic surgery during recent admission. Apparently patient pulled out her PICC line when she was asleep. It was reinserted on the of this month. She did not receive her vancomycin dose today. Home care nurse was also unable to draw any blood workup for ID follow- up. Patient's family states that she was given extra dose of Lasix and her leg swelling seems to be improved as per family. Otherwise patient has been afebrile. No complaints of chest pain. No fever no chills. Laboratory data showed WBC 9.5 hemoglobin 9.8 and platelets 253 Sodium 140 potassium 4.6 chloride 108 bicarb is 27 BUN 72 and creatinine 1.62 and baseline creatinine level around 1.2 Blood sugar 131 AST 26 ALT 14 alk phos 202 and albumin 3.4 Review of Systems Constitutional: Patient denies any fever or chills . No generalized weakness or weight loss. Abdomen: Patient denied nausea vomiting and diarrhea and abdominal pain. Cardiovascular: Patient denies any chest pain or short of breath no palpitations. Respiratory: patient denied any cough is from production. No shortness of breath Complete review of systems could not be obtained from the patient Past Medical History Past Medical History: Heart Failure, Diabetes Mellitus, Hypertension, Pneumonia Additional Past Medical History / Comment(s): new CHF 09/2023, "kidney damage" History of Any Multi-Drug Resistant Organisms: MRSA Date of last positivie culture/infection: 11/26/23 MDRO Source:: Blood Past Surgical History: Hysterectomy Additional Past Surgical History / Comment(s): R hip, cataract sx Past Anesthesia/Blood Transfusion Reactions: No Reported Reaction Past Psychological History: No Psychological Hx Reported Smoking Status: Never smoker Past Alcohol Use History: None Reported Past Drug Use History: None Reported Medications and Allergies Home Medications Medication Instructions Recorded Confirmed Type Ergocalciferol (Vitamin D2) 1,250 mcg PO APPIAH 10/08/23 12/14/23 History [Drisdol (50,000 Iu)] carvediloL [Coreg] 25 mg PO BID 10/08/23 12/14/23 History Potassium Chloride ER [K-Dur 20] 40 meq PO BID tab 10/19/23 12/14/23 Rx predniSONE [Deltasone] 20 mg PO DAILY #2 tab 10/19/23 12/14/23 Rx Albuterol Sulfate [Albuterol 2 puff INHALATION RT-Q6H 11/02/23 12/14/23 History Sulfate Hfa] Atorvastatin [Lipitor] 20 mg PO DAILY 11/02/23 12/14/23 History Omeprazole 20 mg PO DAILY 11/02/23 12/14/23 History rOPINIRole HCL [Requip] 4 mg PO BID 11/02/23 12/14/23 History Collagenase [Santyl Ointment] 1 applic TOPICAL DAILY each 11/06/23 12/14/23 Rx DULoxetine HCL [Cymbalta] 60 mg PO BID 11/26/23 12/14/23 History Furosemide [Lasix] 40 mg PO BID@0800,1600 11/26/23 12/14/23 History Insulin Lispro [Insulin Lispro See Protocol SQ AC-TID 11/26/23 12/14/23 History Kwikpen U-100] Ipratropium-Albuterol Nebulize 3 ml INHALATION RT-BID 11/26/23 12/14/23 History [Duoneb 0.5 mg-3 mg/3 ml Soln] Darbepoetin [place] [Aranesp] 40 mcg SQ Q7D #1 each 12/08/23 12/14/23 Rx Insulin Glargine-Yfgn 20 units SQ DAILY #0 12/08/23 12/14/23 Rx Aspirin EC [Ecotrin Low Dose] 81 mg PO DAILY 12/14/23 12/14/23 History NIFEdipine XL [Procardia XL] 60 mg PO DAILY 12/14/23 12/14/23 History hydrALAZINE HCL [Apresoline] 50 mg PO TID@0800,1300,1800 12/14/23 12/14/23 History Allergies Allergy/AdvReac Type Severity Reaction Status Date / Time No Known Allergies Allergy Verified 12/14/23 14:59 Physical Exam Vitals: Vital Signs Temp Pulse Pulse Pulse Resp BP BP 12/14/23 20:00 97.9 F 61 111/69 12/14/23 16:15 97.5 F L 57 L 16 101/51 12/14/23 16:02 98.4 F 52 L 16 101/62 12/14/23 15:01 97.4 F L 56 L 14 100/61 12/14/23 14:22 97.8 F 52 L 16 106/62 12/14/23 13:15 97.9 F 56 L 18 110/64 12/14/23 11:58 97.6 F 58 L 20 93/50 Pulse Ox 12/14/23 20:00 96 12/14/23 16:15 92 L 12/14/23 16:02 97 12/14/23 15:01 97 12/14/23 14:22 97 12/14/23 13:15 97 12/14/23 11:58 94 L Intake and Output 12/14/23 12/14/23 12/14/23 06:59 14:59 22:59 Intake Total 118 Balance 118 Intake: Oral 118 Other: Weight 63.503 kg PHYSICAL EXAMINATION: Patient is lying in the bed comfortably, no acute distress, awake alert and oriented. Patient is drowsy and lethargic. HEENT: Normocephalic. Neck is supple. Pupils reactive. Nostrils clear. Oral cavity is moist. Neck reveals no JVD, carotid bruits, or thyromegaly. CHEST EXAMINATION: Trachea is central. Symmetrical expansion. Bibasilar diminished sounds otherwise lung massey clear to auscultation and percussion. CARDIAC: Normal S1, S2 with no gallops. No murmurs ABDOMEN: Soft. Bowel sounds present. Nontender.. No organomegaly. No abdominal bruits. Extremities: reveal no edema. No clubbing or cyanosis Neurologically awake, alert, oriented x 2-3 with well-coordinated movements. No gross focal deficits noted Skin: No rash or skin lesions. Psychiatric: Coperative. Nonsuicidal Musculoskeletal: No joint swelling or deformity. Normal range of motion. Results CBC & Chem 7: 12/14/23 12:58 03/18/24 12:58 Labs: Abnormal Lab Results - Last 24 Hours (Table) 12/14/23 12/14/23 12/14/23 Range/Units 12:58 12:58 14:35 RBC 3.18 L (3.80-5.40) m/uL Hgb 9.8 L (11.4-16.0) gm/dL Hct 30.7 L (34.0-46.0) % RDW 16.9 H (11.5-15.5) % Neutrophils # 8.5 H (1.3-7.7) k/uL Lymphocytes # 0.5 L (1.0-4.8) k/uL ESR 40 H (0-30) mm/Hr Chloride 108 H (98-107) mmol/L BUN 72 H (7-17) mg/dL Creatinine 1.62 H (0.52-1.04) mg/dL Glucose 131 H (74-99) mg/dL POC Glucose (mg/dL) 182 H (70-110) mg/dL ALT 40 H (4-34) U/L Alkaline Phosphatase 202 H (38-126) U/L Albumin 3.4 L (3.5-5.0) g/dL 12/14/23 12/14/23 Range/Units 17:21 20:14 RBC (3.80-5.40) m/uL Hgb (11.4-16.0) gm/dL Hct (34.0-46.0) % RDW (11.5-15.5) % Neutrophils # (1.3-7.7) k/uL Lymphocytes # (1.0-4.8) k/uL ESR (0-30) mm/Hr Chloride (98-107) mmol/L BUN (7-17) mg/dL Creatinine (0.52-1.04) mg/dL Glucose (74-99) mg/dL POC Glucose (mg/dL) 233 H 352 H (70-110) mg/dL ALT (4-34) U/L Alkaline Phosphatase (38-126) U/L Albumin (3.5-5.0) g/dL Thrombosis Risk Factor Assmnt - DVT/VTE Prophylaxis DVT/VTE Prophylaxis: Pharmacologic Prophylaxis ordered Assessment and Plan Assessment: Dislodged PICC line Recent history of lumbar discitis and osteomyelitis and MRSA bacteremia and sepsis. Currently on vancomycin for a total of 6 weeks CKD stage IIIa with baseline creatinine 1.2-1.3 Chronic CHF with diastolic dysfunction Recent Klebsiella pneumonia UTI Generalized weakness with gait dysfunction Hyperglycemia with uncontrolled diabetes type 2 insulin-dependent Hypertension DVT prophylaxis with heparin subcu GI prophylaxis patient is on PPI Plan: Patient will be continued on insulin regimen and titrate dose as needed. Continue with insulin sliding scale. Started back on home blood pressure medications and including Lasix 40 mg p.o. twice daily. Patient restarted back on vancomycin IV and PICC line to be placed tomorrow by vascular surgery. Nephrology consult for clearance. Follow-up CBC and CMP tomorrow. Discussed with her daughter at bedside in detail. Time with Patient: Greater than 30
[2023-12-15] MEDS ORDERED: VANCOMYCIN IV PER PHARMACY 1 EACH MISC MISCELLANE PRN (00:12)
[2023-12-15 00:18] LABS: Glucose,Whole Blood 286 mg/dL (70-110)
[2023-12-15] MEDS: INSULIN DETEMIR (LEVEMIR) 100 UNIT/ML SYR SQ ONE (00:27)
[2023-12-15 06:12] LABS: Glucose,Whole Blood 184 mg/dL (70-110)
[2023-12-15] MEDS: PANTOPRAZOLE 40 MG TABLET PO SCH (06:36)
[2023-12-15] MEDS: INSULIN DETEMIR (LEVEMIR) 100 UNIT/ML SYR SQ SCH (08:18)
[2023-12-15 08:24] LABS: ALT 39 U/L (4-34); AST 22 U/L (14-36); African American GFR (CKD) 32 (>60 ml/min/1.73 sqM); Albumin 3.1 g/dL (3.5-5.0); Albumin/Globulin Ratio 1.1; Alkaline Phosphatase 190 U/L (38-126); Anion Gap 7 mmol/L; Blood Urea Nitrogen 66 mg/dL (7-17); Carbon Dioxide 27 mmol/L (22-30); Chloride 105 mmol/L (98-107); Globulin 2.9 g/dL; Glucose 160 mg/dL (74-99); Non-African American GFR(CKD) 28 (>60 ml/min/1.73 sqM); Potassium 4.2 mmol/L (3.5-5.1); Sodium 139 mmol/L (137-145); Total Bilirubin 0.5 mg/dL (0.2-1.3)
[2023-12-15 08:44] LABS: Vancomycin,Random 21.8 ug/mL
[2023-12-15 08:51] LABS: Anisocytosis Slight; Basophils % (A) 0 %; Eosinophils # (A) 0.1 k/uL (0-0.7); Eosinophils % (A) 1 %; HCT 31.9 % (34.0-46.0); HGB 9.9 gm/dL (11.4-16.0); Hypochromasia Moderate; Lymphocytes # (A) 0.9 k/uL (1.0-4.8); Lymphocytes % (A) 11 %; MCH 30.1 pg (25.0-35.0); Macrocytosis Slight; Mean Platelet Volume 9.5; Monocytes # (A) 0.6 k/uL (0-1.0); Monocytes % (A) 7 %; Neutrophils # (A) 6.8 k/uL (1.3-7.7); Neutrophils % (A) 80 %; RBC 3.29 m/uL (3.80-5.40); RDW 16.8 % (11.5-15.5); WBC 8.5 k/uL (3.8-10.6)
[2023-12-15 09:01] VITALS: TEMP 97.5
[2023-12-15 09:32] LABS: Platelet Count 176 k/uL (150-450)
[2023-12-15] MEDS: ASPIRIN 81 MG PO SCH (09:44)
[2023-12-15] MEDS: FUROSEMIDE 40 MG TAB PO SCH (10:21)
[2023-12-15] MEDS: ATORVASTATIN 20 MG TAB PO SCH (10:22)
[2023-12-15] MEDS: predniSONE 20 MG TAB PO SCH (10:23)
[2023-12-15] MEDS: LIDOCAINE 1% INJ 10MG/ML (5 ML VIAL-PF) SQ ONE ×2 (11:22→11:23)
--- NOTE | 2023-12-15 11:44 | IR ---
EXAMINATION TYPE: IR cvc insert >=5 years DATE OF EXAM: 12/15/2023 COMPARISON: NONE HISTORY: Fluoroscopy time. Fluoroscopy was provided to the referring clinician.
--- NOTE | 2023-12-15 12:01 | P.PCN ---
Date of Procedure: 12/15/23 Preoperative Diagnosis: Need for long-term IV antibiotic access Self removal of PICC line Postoperative Diagnosis: Same Procedure(s) Performed: Right upper extremity basilic vein PICC placement under ultrasound and fluoroscopic guidance Anesthesia: local Surgeon: Brock Gonzalez Pathology: none sent Condition: stable Disposition: floor Indications for Procedure: Patient has been on long-term IV antibiotics via right upper extremity PICC line which she has self removed twice due to her history of dementia. She presents back to the hospital for PICC line placement. Description of Procedure: After written and informed consent was obtained the patient and all risks, benefits and competitions were described the patient was brought to the Design Manager and laid in a supine position with the patient's right arm outstretched on an armboard. The area of the right arm was prepped and draped in usual sterile fashion. Timeout was performed in normal fashion. Utilizing ultrasound the basilic vein was visualized and shown to be compressible without any visible thrombus. Under ultrasound guidance the basilic vein was then cannulated with a micropuncture needle and wire was placed under direct visualization of fluoroscopy. Introducer sheath was then placed. The catheter was measured and cut to the appropriate length which was 38 cm. The catheter was then guided through the breakaway sheath and the sheath was removed with good positioning was visualized under fluoroscopy. The catheter was pulled and flushed easily. It was then secured in place in normal fashion. Patient tolerated the procedure well was sent back to his room for recovery.
--- NOTE | 2023-12-15 12:32 | P.NPCON ---
History of Present Illness - Reason for Consult acute renal failure - History of Present Illness Patient is an 88-year-old female with history of CHF, osteoarthritis, MRSA bacteremia and sepsis maintained on IV vancomycin via PICC line. Patient was admitted to the hospital as she pulled out her PICC line while sleeping. This has occurred twice. On this admission serum creatinine was noted to be elevated at 1.6 mg/dL. Previous creatinine was 1.2 on 12/08/2023 and 1.1 on 12/06/2023 No significant urinary symptoms. Patient has been voiding. Blood pressure is noted to be on the lower side with systolic at 10 1 mmHg and 93 mmHg on initial admission. Maintained on multiple antihypertensive meds. Vancomycin is being switched to daptomycin. Vancomycin level noted to be 21.8 today. Review of Systems As per HPI Past Medical History Past Medical History: Heart Failure, Diabetes Mellitus, Hypertension, Pneumonia Additional Past Medical History / Comment(s): new CHF 09/2023, "kidney damage" History of Any Multi-Drug Resistant Organisms: MRSA Date of last positivie culture/infection: 11/26/23 MDRO Source:: Blood Past Surgical History: Hysterectomy Additional Past Surgical History / Comment(s): R hip, cataract sx Past Anesthesia/Blood Transfusion Reactions: No Reported Reaction Past Psychological History: No Psychological Hx Reported Smoking Status: Never smoker Past Alcohol Use History: None Reported Past Drug Use History: None Reported Medications and Allergies Home Medications Medication Instructions Recorded Confirmed Type Ergocalciferol (Vitamin D2) 1,250 mcg PO APPIAH 10/08/23 12/14/23 History [Drisdol (50,000 Iu)] Potassium Chloride ER [K-Dur 20] 40 meq PO BID tab 10/19/23 12/14/23 Rx predniSONE [Deltasone] 20 mg PO DAILY #2 tab 10/19/23 12/14/23 Rx Albuterol Sulfate [Albuterol 2 puff INHALATION RT-Q6H 11/02/23 12/14/23 History Sulfate Hfa] Atorvastatin [Lipitor] 20 mg PO DAILY 11/02/23 12/14/23 History Omeprazole 20 mg PO DAILY 11/02/23 12/14/23 History rOPINIRole HCL [Requip] 4 mg PO BID 11/02/23 12/14/23 History Collagenase [Santyl Ointment] 1 applic TOPICAL DAILY each 11/06/23 12/14/23 Rx DULoxetine HCL [Cymbalta] 60 mg PO BID 11/26/23 12/14/23 History Furosemide [Lasix] 40 mg PO BID@0800,1600 11/26/23 12/14/23 History Insulin Lispro [Insulin Lispro See Protocol SQ AC-TID 11/26/23 12/14/23 History Kwikpen U-100] Ipratropium-Albuterol Nebulize 3 ml INHALATION RT-BID 11/26/23 12/14/23 History [Duoneb 0.5 mg-3 mg/3 ml Soln] Darbepoetin [place] [Aranesp] 40 mcg SQ Q7D #1 each 12/08/23 12/14/23 Rx Insulin Glargine-Yfgn 20 units SQ DAILY #0 12/08/23 12/14/23 Rx Aspirin EC [Ecotrin Low Dose] 81 mg PO DAILY 12/14/23 12/14/23 History NIFEdipine XL [Procardia XL] 60 mg PO DAILY 12/14/23 12/14/23 History carvediloL [Coreg*] 12.5 mg PO BID-W/MEALS #60 tab 12/15/23 Rx hydrALAZINE HCL [Apresoline] 50 mg PO BID #60 tab 12/15/23 Rx Allergies Allergy/AdvReac Type Severity Reaction Status Date / Time No Known Allergies Allergy Verified 12/14/23 14:59 Physical Exam Vitals: Vital Signs Temp Pulse Pulse Pulse Resp BP BP 12/15/23 09:44 59 L 114/61 12/15/23 09:40 62 12/15/23 09:31 60 12/15/23 07:00 97.5 F L 60 60 16 113/59 12/15/23 02:00 97.4 F L 61 121/60 12/14/23 21:15 61 12/14/23 21:09 57 L 12/14/23 20:00 97.9 F 61 111/69 12/14/23 16:15 97.5 F L 57 L 16 101/51 12/14/23 16:02 98.4 F 52 L 16 101/62 12/14/23 15:01 97.4 F L 56 L 14 100/61 12/14/23 14:22 97.8 F 52 L 16 106/62 12/14/23 13:15 97.9 F 56 L 18 110/64 Pulse Ox 12/15/23 09:44 12/15/23 09:40 12/15/23 09:31 97 12/15/23 07:00 94 L 12/15/23 02:00 94 L 12/14/23 21:15 12/14/23 21:09 12/14/23 20:00 96 12/14/23 16:15 92 L 12/14/23 16:02 97 12/14/23 15:01 97 12/14/23 14:22 97 12/14/23 13:15 97 Intake and Output 12/14/23 12/15/23 12/15/23 22:59 06:59 14:59 Intake Total 218 118 Balance 218 118 Intake: Oral 218 118 Other: Voiding Method Bedside Commode # Voids 4 1 # Bowel Movements 1 Weight 63.503 kg Patient is awake, comfortable, no acute distress Examination of the heart S1 and S2 Examination of the lungs bilateral breath sounds are heard Abdomen is soft nontender Examination lower extremity shows no significant edema Results - Lab Results Most recent lab results Calcium 9.0 mg/dL (8.4-10.2) 12/15/23 06:34 12/15/23 06:34 12/15/23 06:34 Assessment and Plan Assessment: 1. Acute kidney injury, ATN secondary to hypotension, underlying infection and element of vancomycin toxicity. Currently nonoliguric. Antihypertensive medications will be decreased. Check post void residual prior to discharge. 2. Lumbar discitis and osteomyelitis with MRSA bacteremia and sepsis maintained on IV vancomycin currently being switched to daptomycin. New PICC line has been placed as patient pulled out the old one at home while sleeping 3. Recent Klebsiella pneumoniae UTI 4. Generalized debility Plan: Decrease Coreg to 12.5 mg twice a day Decrease hydralazine to 50 mg twice a day Patient can be discharged from nephrology standpoint Check post void residual prior to discharge Hold antihypertensive medications for systolic blood pressure less than 1 10 mmHg Agree with discontinuation of vancomycin Follow-up as outpatient in 1-2 weeks with labs to be done prior to office visit. Next Thank you for the consultation. We will continue to follow the patient with you during her hospitalization.
[2023-12-15 12:35] LABS: Glucose,Whole Blood 100 mg/dL (70-110)
[2023-12-15] MEDS ORDERED: VANCOMYCIN 750 MG in SODIUM CHLORIDE 0.9% 250 ML IVPB ONE (14:00)
[2023-12-15 15:27] VITALS: BP 119/77; PULSE 66
--- NOTE | 2023-12-15 15:56 | P.CONS ---
History of Present Illness - Reason for Consult Consult date: 12/15/23 IV antibiotics on outpatient IV Vanco Requesting physician: Rosario Murphy - Chief Complaint Pulled out PICC line x 1 day - History of Present Illness Patient is a 88-year-old female with a past medical history significant for diabetes mellitus hypertension pneumonia heart failure with patient was recently admitted to the hospital and did have evidence of MRSA bacteremia further workup suspicious for possible lumbar discitis and osteomyelitis however the patient was considered to be high risk for any surgical intervention repeat blood culture were negative patient did get a PICC line and was discharged home on IV vancomycin pharmacy to dose apparently the patient did pull out her PICC line and sleep for the patient was evaluated in the ER on 12/10/2023 and a PICC line was placed patient was discharged home however the patient pulled the PICC line again unintentionally sleep the patient was brought back to the hospital yesterday and subsequently had been admitted patient did receive a dose of vancomycin Vanco trough has been high infectious was consulted for evaluation and management of her antibiotic therapy. On today's visit that is 12/15/2023 patient denies having any fever or any chills, the patient is breathing comfortably on 2 L nasal cannula oxygen no chest pain shortness of breath or cough no nausea vomiting abdominal pain or any worsening pain to the lower back has been reported no diarrhea Review of Systems Positive point and negatives has been mentioned in the HPI, complete review of systems was performed and all other systems are negative Past Medical History Past Medical History: Heart Failure, Diabetes Mellitus, Hypertension, Pneumonia Additional Past Medical History / Comment(s): new CHF 09/2023, "kidney damage" History of Any Multi-Drug Resistant Organisms: MRSA Year Discovered:: 11/26/23 MDRO Source:: Blood Past Surgical History: Hysterectomy Additional Past Surgical History / Comment(s): R hip, cataract sx Past Anesthesia/Blood Transfusion Reactions: No Reported Reaction Past Psychological History: No Psychological Hx Reported Smoking Status: Never smoker Past Alcohol Use History: None Reported Past Drug Use History: None Reported Medications and Allergies Home Medications Medication Instructions Recorded Confirmed Type Ergocalciferol (Vitamin D2) 1,250 mcg PO APPIAH 10/08/23 12/14/23 History [Drisdol (50,000 Iu)] Potassium Chloride ER [K-Dur 20] 40 meq PO BID tab 10/19/23 12/14/23 Rx Albuterol Sulfate [Albuterol 2 puff INHALATION RT-Q6H 11/02/23 12/14/23 History Sulfate Hfa] Atorvastatin [Lipitor] 20 mg PO DAILY 11/02/23 12/14/23 History Omeprazole 20 mg PO DAILY 11/02/23 12/14/23 History rOPINIRole HCL [Requip] 4 mg PO BID 11/02/23 12/14/23 History Collagenase [Santyl Ointment] 1 applic TOPICAL DAILY each 11/06/23 12/14/23 Rx DULoxetine HCL [Cymbalta] 60 mg PO BID 11/26/23 12/14/23 History Furosemide [Lasix] 40 mg PO BID@0800,1600 11/26/23 12/14/23 History Insulin Lispro [Insulin Lispro See Protocol SQ AC-TID 11/26/23 12/14/23 History Kwikpen U-100] Ipratropium-Albuterol Nebulize 3 ml INHALATION RT-BID 11/26/23 12/14/23 History [Duoneb 0.5 mg-3 mg/3 ml Soln] Darbepoetin [place] [Aranesp] 40 mcg SQ Q7D #1 each 12/08/23 12/14/23 Rx Insulin Glargine-Yfgn 20 units SQ DAILY #0 12/08/23 12/14/23 Rx Aspirin EC [Ecotrin Low Dose] 81 mg PO DAILY 12/14/23 12/14/23 History NIFEdipine XL [Procardia XL] 60 mg PO DAILY 12/14/23 12/14/23 History carvediloL [Coreg*] 12.5 mg PO BID-W/MEALS #60 tab 12/15/23 Rx hydrALAZINE HCL [Apresoline] 50 mg PO BID #60 tab 12/15/23 Rx predniSONE See Taper PO DIRECTED 3 Days #3 12/15/23 Rx tab Allergies Allergy/AdvReac Type Severity Reaction Status Date / Time No Known Allergies Allergy Verified 12/14/23 14:59 Physical Exam Vitals: Vital Signs Temp Pulse Pulse Pulse Resp BP BP 12/15/23 09:44 59 L 114/61 12/15/23 09:40 62 12/15/23 09:31 60 12/15/23 07:00 97.5 F L 60 60 16 113/59 12/15/23 02:00 97.4 F L 61 121/60 12/14/23 21:15 61 12/14/23 21:09 57 L 12/14/23 20:00 97.9 F 61 111/69 12/14/23 16:15 97.5 F L 57 L 16 101/51 12/14/23 16:02 98.4 F 52 L 16 101/62 12/14/23 15:01 97.4 F L 56 L 14 100/61 12/14/23 14:22 97.8 F 52 L 16 106/62 12/14/23 13:15 97.9 F 56 L 18 110/64 Pulse Ox 12/15/23 09:44 12/15/23 09:40 12/15/23 09:31 97 12/15/23 07:00 94 L 12/15/23 02:00 94 L 12/14/23 21:15 12/14/23 21:09 12/14/23 20:00 96 12/14/23 16:15 92 L 12/14/23 16:02 97 12/14/23 15:01 97 12/14/23 14:22 97 12/14/23 13:15 97 Intake and Output 12/14/23 12/15/23 12/15/23 22:59 06:59 14:59 Intake Total 218 118 Balance 218 118 Intake: Oral 218 118 Other: Voiding Method Bedside Commode # Voids 4 1 # Bowel Movements 1 Weight 63.503 kg GENERAL DESCRIPTION: Elderly female lying in bed, no distress. No tachypnea or accessory muscle of respiration use. HEENT: Shows Pallor , no scleral icterus. Oral mucous membrane is dry. NECK: No thyromegaly. LUNGS: Unlabored breathing. Clear to auscultation anteriorly. No wheeze or crackle. HEART: S1, S2, regular rate and rhythm. No loud murmur ABDOMEN: Soft, no tenderness , EXTREMITIES: No edema of feet. SKIN: No rash, no masses palpable. NEUROLOGICAL: The patient is awake, alert, mood and affect normal. Results CBC & Chem 7: 12/15/23 06:34 12/15/23 06:34 Labs: Abnormal Lab Results - Last 24 Hours (Table) 12/14/23 12/14/23 12/14/23 Range/Units 12:58 12:58 14:35 RBC 3.18 L (3.80-5.40) m/uL Hgb 9.8 L (11.4-16.0) gm/dL Hct 30.7 L (34.0-46.0) % RDW 16.9 H (11.5-15.5) % Neutrophils # 8.5 H (1.3-7.7) k/uL Lymphocytes # 0.5 L (1.0-4.8) k/uL ESR 40 H (0-30) mm/Hr Chloride 108 H (98-107) mmol/L BUN 72 H (7-17) mg/dL Creatinine 1.62 H (0.52-1.04) mg/dL Glucose 131 H (74-99) mg/dL POC Glucose (mg/dL) 182 H (70-110) mg/dL ALT 40 H (4-34) U/L Alkaline Phosphatase 202 H (38-126) U/L Total Protein (6.3-8.2) g/dL Albumin 3.4 L (3.5-5.0) g/dL 12/14/23 12/14/23 12/15/23 Range/Units 17:21 20:14 00:16 RBC (3.80-5.40) m/uL Hgb (11.4-16.0) gm/dL Hct (34.0-46.0) % RDW (11.5-15.5) % Neutrophils # (1.3-7.7) k/uL Lymphocytes # (1.0-4.8) k/uL ESR (0-30) mm/Hr Chloride (98-107) mmol/L BUN (7-17) mg/dL Creatinine (0.52-1.04) mg/dL Glucose (74-99) mg/dL POC Glucose (mg/dL) 233 H 352 H 286 H (70-110) mg/dL ALT (4-34) U/L Alkaline Phosphatase (38-126) U/L Total Protein (6.3-8.2) g/dL Albumin (3.5-5.0) g/dL 12/15/23 12/15/23 12/15/23 Range/Units 06:10 06:34 06:34 RBC 3.29 L (3.80-5.40) m/uL Hgb 9.9 L (11.4-16.0) gm/dL Hct 31.9 L (34.0-46.0) % RDW 16.8 H (11.5-15.5) % Neutrophils # (1.3-7.7) k/uL Lymphocytes # 0.9 L (1.0-4.8) k/uL ESR (0-30) mm/Hr Chloride (98-107) mmol/L BUN 66 H (7-17) mg/dL Creatinine 1.63 H (0.52-1.04) mg/dL Glucose 160 H (74-99) mg/dL POC Glucose (mg/dL) 184 H (70-110) mg/dL ALT 39 H (4-34) U/L Alkaline Phosphatase 190 H (38-126) U/L Total Protein 6.0 L (6.3-8.2) g/dL Albumin 3.1 L (3.5-5.0) g/dL Assessment and Plan (1) Lumbar discitis Current Visit: Yes Status: Acute Code(s): M46.46 - DISCITIS, UNSPECIFIED, LUMBAR REGION SNOMED Code(s): 078772578 (2) MRSA bacteremia Current Visit: Yes Status: Acute Code(s): R78.81 - BACTEREMIA; B95.62 - METHICILLIN RESIS STAPH INFCT CAUSING [facility]ES [facility] Code(s): 78915404007959882 Plan: 1patient with recent admission to the hospital and did have MRSA bacteremia and there was suspicions for lumbar discitis/osteomyelitis patient was considered to be high risk for any surgical intervention by anesthesia and surgery was postponed did patient did clear her bacteremia and has been receiving IV vancomycin in the outpatient setting unfortunately the patient has pulled out to her PICC line and IV in the hospital for PICC line placement which has been done this morning 2-patient also have elevated creatinine and elevated Vanco level in the high risk of nephrotoxicity from vancomycin 3-recommend discoloration of vancomycin and start the patient on daptomycin 6 mg/kg daily prescription has been provided to the nursing staff 4-we will follow-up with the patient the outpatient setting and also continue with the weekly monitoring of CRP and a sed rate which are trending down on the last blood draw on 12/14/2023 Family bedside multiple questions were answered We will follow on clinical condition and cultures to further adjust medication if needed Thank you for this consultation we will follow the patient along with you Dictation was produced using [employer] dictation software. please excuse any grammatical, word or spelling errors.
[2023-12-15] MEDS ORDERED: carvediloL 12.5 MG TAB PO SCH (17:30)
[2023-12-15] MEDS ORDERED: hydrALAZINE HCL 50 MG TAB PO SCH (21:00)
[2023-12-15] MEDS ORDERED: VANCOMYCIN 1,000 MG in SODIUM CHLORIDE 0.9% 250 ML IVPB ONE (21:00)
== END 2023-12-15 15:56 | disposition home health service (06) ==
LOC: EC 11:52 → 6NMEDSUR 14:22
PROVIDERS: ADMIT Internal Medicine; ATTEND Internal Medicine
DX: T82.524A Displacement of infusion catheter, initial encounter (principal); Y82.8 Other medical devices associated with adverse incidents; N17.0 Acute kidney failure with tubular necrosis; I95.9 Hypotension, unspecified; I13.0 Hypertensive heart and chronic kidney disease with heart failure and stage 1 through stage 4 chronic kidney disease, or unspecified chronic kidney disease; I50.32 Chronic diastolic (congestive) heart failure; N18.31 Chronic kidney disease, stage 3a; E11.22 Type 2 diabetes mellitus with diabetic chronic kidney disease; M46.46 Discitis, unspecified, lumbar region; M46.26 Osteomyelitis of vertebra, lumbar region; E11.65 Type 2 diabetes mellitus with hyperglycemia; F03.90 Unspecified dementia, unspecified severity, without behavioral disturbance, psychotic disturbance, mood disturbance, and anxiety; R26.9 Unspecified abnormalities of gait and mobility; Z79.82 Long term (current) use of aspirin; Z86.14 Personal history of Methicillin resistant Staphylococcus aureus infection; Z79.899 Other long term (current) drug therapy; Z79.4 Long term (current) use of insulin
CPT/HCPCS: 96365; 96366; 99284; 36415; 94640 ×2; 94760; 36573; 80053 ×2; 85652; 85025 ×2; 86140; 80202; 71046; G0378 ×2; C1751; C1769; J3370; J2001; J7512

== ENCOUNTER → 2024-01-05 | Outpatient (CLI) | payer MEDICARE, BC ==
--- NOTE | 2024-01-05 19:24 | US ---
EXAMINATION TYPE: US venous doppler duplex LE LT DATE OF EXAM: 01/05/2024 2:27 PM COMPARISON: NONE CLINICAL INDICATION: Female, 88 years old with history of R60.0 EDEMA; Left leg bruising. Lower leg edema. SIDE PERFORMED: Left TECHNIQUE: The lower extremity deep venous system is examined utilizing real time linear array sonog derrick with graded compression, doppler sonography and color-flow sonography. VESSELS IMAGED: Common Femoral Vein Deep Femoral Vein Greater Saphenous Vein * Femoral Vein Popliteal Vein Small Saphenous Vein * Proximal Calf Veins (* superficial vessels) Left Leg: Negative for DVT Grayscale, color doppler, spectral doppler imaging performed of the deep veins of the lower extremiti es. There is normal flow, compressibility, vascular waveforms. IMPRESSION: 1. No evidence for deep vein thrombosis. 2. Subcutaneous edema no left lower extremity.
== END | disposition home or self-care (01) ==
LOC: RADUSWWP 14:24
PROVIDERS: ATTEND Internal Medicine Critical Care Medicine
DX: R60.0 Localized edema (principal)

== ENCOUNTER 2024-01-23 14:49 | Inpatient (IN) | payer MEDICARE, BC ==
[2024-01-23 15:21] LABS: Basophils # (A) 0.1 k/uL (0-0.2); Basophils % (A) 1 %; Eosinophils # (A) 0.3 k/uL (0-0.7); Eosinophils % (A) 5 %; HCT 35.9 % (34.0-46.0); HGB 11.6 gm/dL (11.4-16.0); Lymphocytes # (A) 0.8 k/uL (1.0-4.8); Lymphocytes % (A) 11 %; MCH 30.8 pg (25.0-35.0); MCHC 32.2 g/dL (31.0-37.0); Mean Platelet Volume 9.2; Monocytes # (A) 0.4 k/uL (0-1.0); Monocytes % (A) 6 %; Neutrophils # (A) 5.5 k/uL (1.3-7.7); Neutrophils % (A) 76 %; Platelet Count 198 k/uL (150-450); RBC 3.76 m/uL (3.80-5.40); RDW 15.3 % (11.5-15.5); WBC 7.2 k/uL (3.8-10.6)
[2024-01-23 15:28] LABS: INR 0.9 (<1.2); MCV 95.5 fL (80.0-100.0); Partial Thromboplastin Time 26.2 sec (22.0-30.0); Prothrombin Time 10.1 sec (10.0-12.5)
[2024-01-23 15:36] LABS: ALT 29 U/L (4-34); AST 29 U/L (14-36); African American GFR (CKD) 55 (>60 ml/min/1.73 sqM); Albumin 3.2 g/dL (3.5-5.0); Alkaline Phosphatase 210 U/L (38-126); Anion Gap 7 mmol/L; Blood Urea Nitrogen 28 mg/dL (7-17); Calcium 8.8 mg/dL (8.4-10.2); Carbon Dioxide 29 mmol/L (22-30); Chloride 107 mmol/L (98-107); Glucose 96 mg/dL (74-99); Non-African American GFR(CKD) 48 (>60 ml/min/1.73 sqM); Potassium 2.9 mmol/L (3.5-5.1); Sodium 143 mmol/L (137-145); Total Bilirubin 0.6 mg/dL (0.2-1.3); Total Protein 6.2 g/dL (6.3-8.2)
[2024-01-23 15:45] LABS: NT-Pro-B-Type Natriuretic Pept 1400 pg/mL
--- NOTE | 2024-01-23 15:58 | XR ---
EXAMINATION TYPE: XR chest 2V DATE OF EXAM: 01/23/2024 COMPARISON: 12/14/2023 HISTORY: 88 year-old female shortness of breath, difficulty breathing TECHNIQUE: AP and lateral views FINDINGS: Heart borderline enlarged. Diffuse interstitial and bilateral patchy opacities are present. Trace ple ural effusions on the lateral view. IMPRESSION: CHF with patchy pulmonary edema. Trace pleural effusions.
[2024-01-23] MEDS ORDERED: NALOXONE 0.4 MG/ML 1 ML VIAL IV PRN (16:35)
--- NOTE | 2024-01-23 16:35 | ED ---
SOB HPI - General Chief Complaint: Shortness of Breath Stated Complaint: SOB Time Seen by Provider: 01/23/24 15:00 Source: patient, EMS Mode of arrival: EMS Limitations: no limitations - History of Present Illness Initial Comments: 88-year-old female with past medical history of COPD, CHF who presents emergency department with shortness of breath. States that she has been short of breath for the past couple of days. She used her inhaler today without any relief in her symptoms. She does have lower extremity edema however states it is not worse than normal. She has been compliant with her 40 mg of Lasix twice daily. She denies any chest pain. States that the shortness of breath is worse with exertion. EMS were called to the house and found her saturating 92% at rest. When they got the patient up to pivot her she desatted to 80%. Patient does not have any home oxygen. No fevers. No productive cough. No other alleviating, precipitating or modifying factors - Related Data Home Medications Medication Instructions Recorded Confirmed Ergocalciferol (Vitamin D2) 1,250 mcg PO APPIAH 10/08/23 01/23/24 [Drisdol (50,000 Iu)] Albuterol Sulfate [Albuterol 2 puff INHALATION RT-Q6H 11/02/23 01/23/24 Sulfate Hfa] Atorvastatin [Lipitor] 20 mg PO DAILY 11/02/23 01/23/24 Omeprazole 20 mg PO DAILY 11/02/23 01/23/24 rOPINIRole HCL [Requip] 4 mg PO BID 11/02/23 01/23/24 DULoxetine HCL [Cymbalta] 60 mg PO BID 11/26/23 01/23/24 Furosemide [Lasix] 40 mg PO BID@0800,1600 11/26/23 01/23/24 Insulin Lispro [Insulin Lispro See Protocol SQ AC-TID 11/26/23 01/23/24 Kwikjey U-100] Ipratropium-Albuterol Nebulize 3 ml INHALATION RT-BID 11/26/23 01/23/24 [Duoneb 0.5 mg-3 mg/3 ml Soln] Aspirin EC [Ecotrin Low Dose] 81 mg PO DAILY 12/14/23 01/23/24 NIFEdipine XL [Procardia XL] 60 mg PO DAILY 12/14/23 01/23/24 Insulin Glargine-Yfgn 22 units SQ HS 01/23/24 01/23/24 Insulin Lispro [Insulin Lispro 4 unit SQ AC-TID 01/23/24 01/23/24 Kwikpen U-100] glipiZIDE [Glucotrol] 5 mg PO AC-BRKFST 01/27/24 01/27/24 Previous Rx's Medication Instructions Recorded Potassium Chloride ER [K-Dur 20] 40 meq PO BID tab 10/19/23 Collagenase [Santyl Ointment] 1 applic TOPICAL DAILY each 11/06/23 carvediloL [Coreg*] 12.5 mg PO BID-W/MEALS #60 tab 12/15/23 hydrALAZINE HCL [Apresoline] 50 mg PO BID #60 tab 12/15/23 Allergies Allergy/AdvReac Type Severity Reaction Status Date / Time No Known Allergies Allergy Verified 01/23/24 16:17 Review of Systems ROS Statement: Those systems with pertinent positive or pertinent negative responses have been documented in the HPI. ROS Other: All systems not noted in ROS Statement are negative. Past Medical History Past Medical History: Heart Failure, Diabetes Mellitus, Hypertension, Pneumonia Additional Past Medical History / Comment(s): new CHF 09/2023, "kidney damage" History of Any Multi-Drug Resistant Organisms: ESBL Date of last positivie culture/infection: 11/26/23 MDRO Source:: Blood Past Surgical History: Hysterectomy Additional Past Surgical History / Comment(s): R hip, cataract sx Past Anesthesia/Blood Transfusion Reactions: No Reported Reaction Smoking Status: Never smoker Past Alcohol Use History: None Reported Past Drug Use History: None Reported General Exam Limitations: no limitations General appearance: alert, in no apparent distress Head exam: Present: atraumatic, normocephalic, normal inspection Eye exam: Present: normal appearance, PERRL, EOMI. Absent: scleral icterus, conjunctival injection, periorbital swelling ENT exam: Present: normal exam, mucous membranes moist Neck exam: Present: normal inspection. Absent: tenderness, meningismus, lymphadenopathy Respiratory exam: Present: rales. Absent: respiratory distress, wheezes, rhonchi, stridor Cardiovascular Exam: Present: regular rate, normal rhythm, normal heart sounds. Absent: systolic murmur, diastolic murmur, rubs, gallop, clicks GI/Abdominal exam: Present: soft, normal bowel sounds. Absent: distended, tenderness, guarding, rebound, rigid Extremities exam: Present: normal inspection, full ROM, normal capillary refill. Absent: tenderness, pedal edema, joint swelling, calf tenderness Back exam: Present: normal inspection Neurological exam: Present: alert, oriented X3, CN II-XII intact Psychiatric exam: Present: normal affect, normal mood Skin exam: Present: warm, dry, intact, normal color. Absent: rash Course Vital Signs 01/23/24 01/23/24 01/23/24 14:59 16:29 17:15 Temperature 97.1 F L Pulse Rate 71 72 77 Respiratory 14 18 20 Rate Blood Pressure 119/61 123/70 152/72 O2 Sat by Pulse 94 L 95 92 L Oximetry 01/23/24 01/23/24 18:33 18:53 Temperature 97.4 F L Pulse Rate 79 78 Respiratory 18 20 Rate Blood Pressure 125/64 O2 Sat by Pulse 94 L 93 L Oximetry Medical Decision Making - Medical Decision Making Was pt. sent in by a medical professional or institution (Dr. PA, CAMPAIGN COORDINATOR, urgent care, hospital, or fpc...) When possible be specific @ -No Did you speak to anyone other than the patient for history (EMS, parent, family, police, friend...)? What history was obtained from this source @ -Spoke with the patient's daughter Did you review nursing and triage notes (agree or disagree)? Why? @ -I reviewed and agree with nursing and triage notes Were old charts reviewed (outside hosp., previous admission, EMS record, old EKG, old radiological studies, urgent care reports/EKG's, fpc records)? Report findings @ -I reviewed patient's hospital records from her hospitalization during mid November at our facility Differential Diagnosis (chest pain, altered mental status, abdominal pain women, abdominal pain men, vaginal bleeding, weakness, fever, dyspnea, syncope, headache, dizziness, GI bleed, back pain, seizure, CVA, palpatations, mental health, musculoskeletal)? @ -Differential Dyspnea: Coronary syndrome, arrhythmia, tamponade, asthma, COPD, pulmonary embolism, pneumonia, pneumothorax, pulmonary effusion, anaphylaxis, diabetic ketoacidosis, flailed chest, pulmonary contusion, diaphragmatic rupture, anemia, neuromuscular, this is not meant to be an all-inclusive list. EKG interpreted by me (3pts min.). @ -Yes and demonstrates sinus rhythm with a rate of 70. OR interval 168. QRS 141. QTc of 478. Left bundle branch block. No acute ST segment elevations X-rays interpreted by me (1pt min.). @ -Yes and demonstrates pulmonary vascular congestion CT interpreted by me (1pt min.). @ -None done U/S interpreted by me (1pt. min.). @ -None done What testing was considered but not performed or refused? (CT, X-rays, U/S, l abs)? Why? @ -None What meds were considered but not given or refused? Why? @ -None Did you discuss the management of the patient with other professionals (professionals i.e. , PA, CAMPAIGN COORDINATOR, lab, RT, psych nurse, director social service, pilot instructor, teacher, space officer, shelter case manager)? Give summary @ -Spoke with Dr. Ridley for admission Was smoking cessation discussed for >3mins.? @ -No Was critical care preformed (if so, how long)? @ -No Were there social determinants of health that impacted care today? How? (Homelessness, low income, unemployed, alcoholism, drug addiction, transportation, low edu. Level, literacy, decrease access to med. care, prison, rehab)? @ -No Was there de-escalation of care discussed even if they declined (Discuss DNR or withdrawal of care, Hospice)? DNR status @ -No What co-morbidities impacted this encounter? (DM, HTN, Smoking, COPD, CAD, Cancer, CVA, ARF, Chemo, Hep., AIDS, mental health diagnosis, sleep apnea, morbid obesity)? @ -CHF, COPD Was patient admitted / discharged? Hospital course, mention meds given and route, prescriptions, significant lab abnormalities, going to OR and other pertinent info. @ -Upon arrival patient was seen and evaluated in room 28. Thorough history and physical exam was performed. IV is established and laboratory studies are conducted. Chest x-ray was performed which demonstrates volume overload. Patient has been taking her diuretics at home as directed without improvement in her breathing. She does not have oxygen at home and becomes hypoxic upon ambulation. Because of this she will be admitted. Spoke with Dr. Ridley who is a greeable to the admission. Daughter is updated at bedside Undiagnosed new problem with uncertain prognosis? @ -No Drug Therapy requiring intensive monitoring for toxicity (Heparin, Nitro, Insulin, Cardizem)? @ -No Were any procedures done? @ -No Diagnosis/symptom? @ -Acute dyspnea, acute exacerbation of CHF Acute, or Chronic, or Acute on Chronic? @ -Acute on chronic Uncomplicated (without systemic symptoms) or Complicated (systemic symptoms)? @ -Complicated Side effects of treatment? @ -No Exacerbation, Progression, or Severe Exacerbation? @ -Yes Poses a threat to life or bodily function? How? (Chest pain, USA, VT, pneumonia, PE, COPD, DKA, ARF, appy, cholecystitis, CVA, Diverticulitis, Homicidal, Suicidal, threat to staff... and all critical care pts) @ -No - Lab Data Result diagrams: 01/26/24 07:19 01/28/24 05:54 Lab Results 01/23/24 01/23/24 01/23/24 Range/Units 15:09 15:09 15:09 WBC 7.2 (3.8-10.6) k/uL RBC 3.76 L (3.80-5.40) m/uL Hgb 11.6 (11.4-16.0) gm/dL Hct 35.9 (34.0-46.0) % MCV 95.5 D (80.0-100.0) fL MCH 30.8 (25.0-35.0) pg MCHC 32.2 (31.0-37.0) g/dL RDW 15.3 (11.5-15.5) % Plt Count 198 (150-450) k/uL MPV 9.2 Immature Gran % (Auto) % Absolute Nucleated RBC % Neutrophils % 76 % Lymphocytes % 11 % Monocytes % 6 % Eosinophils % 5 % Basophils % 1 % Immature Gran # (0.00-0.04) X 10*3/uL Neutrophils # 5.5 (1.3-7.7) k/uL Lymphocytes # 0.8 L (1.0-4.8) k/uL Monocytes # 0.4 (0-1.0) k/uL Eosinophils # 0.3 (0-0.7) k/uL Basophils # 0.1 (0-0.2) k/uL NRBC/100 WBC Diff (0.00-0.01) X 10*3/uL PT 10.1 (10.0-12.5) sec INR 0.9 (<1.2) APTT 26.2 (22.0-30.0) sec Sodium 143 (137-145) mmol/L Potassium 2.9 L (3.5-5.1) mmol/L Chloride 107 (98-107) mmol/L Carbon Dioxide 29 (22-30) mmol/L Anion Gap 7 mmol/L BUN 28 H (7-17) mg/dL Creatinine 1.05 H (0.52-1.04) mg/dL Est GFR (CKD-EPI) (>=60) Est GFR (CKD-EPI)AfAm 55 (>60 ml/min/1.73 sqM) Est GFR (CKD-EPI)NonAf 48 (>60 ml/min/1.73 sqM) BUN/Creatinine Ratio (12.00-20.00) Ratio Glucose 96 (74-99) mg/dL POC Glucose (mg/dL) (70-110) mg/dL POC Glu Complaint Clerk ID Estimated Ave Glu mg/dL mg/dL Hemoglobin A1c (<=6.0) % Plasma Lactic Acid Luis M (0.7-2.0) mmol/L Calcium 8.8 (8.4-10.2) mg/dL Magnesium (1.6-2.3) mg/dL Total Bilirubin 0.6 (0.2-1.3) mg/dL AST 29 (14-36) U/L ALT 29 (4-34) U/L Alkaline Phosphatase 210 H (38-126) U/L Troponin I (0.000-0.034) ng/mL NT-Pro-B Natriuret Pep 1400 pg/mL Total Protein 6.2 L (6.3-8.2) g/dL Albumin 3.2 L (3.5-5.0) g/dL 01/23/24 01/23/24 01/23/24 Range/Units 15:09 15:09 15:09 WBC (3.8-10.6) k/uL RBC (3.80-5.40) m/uL Hgb (11.4-16.0) gm/dL Hct (34.0-46.0) % MCV (80.0-100.0) fL MCH (25.0-35.0) pg MCHC (31.0-37.0) g/dL RDW (11.5-15.5) % Plt Count (150-450) k/uL MPV Immature Gran % (Auto) % Absolute Nucleated RBC % Neutrophils % % Lymphocytes % % Monocytes % % Eosinophils % % Basophils % % Immature Gran # (0.00-0.04) X 10*3/uL Neutrophils # (1.3-7.7) k/uL Lymphocytes # (1.0-4.8) k/uL Monocytes # (0-1.0) k/uL Eosinophils # (0-0.7) k/uL Basophils # (0-0.2) k/uL NRBC/100 WBC Diff (0.00-0.01) X 10*3/uL PT (10.0-12.5) sec INR (<1.2) APTT (22.0-30.0) sec Sodium (137-145) mmol/L Potassium (3.5-5.1) mmol/L Chloride (98-107) mmol/L Carbon Dioxide (22-30) mmol/L Anion Gap mmol/L BUN (7-17) mg/dL Creatinine (0.52-1.04) mg/dL Est GFR (CKD-EPI) (>=60) Est GFR (CKD-EPI)AfAm (>60 ml/min/1.73 sqM) Est GFR (CKD-EPI)NonAf (>60 ml/min/1.73 sqM) BUN/Creatinine Ratio (12.00-20.00) Ratio Glucose (74-99) mg/dL POC Glucose (mg/dL) (70-110) mg/dL POC Glu Complaint Clerk ID Estimated Ave Glu mg/dL mg/dL Hemoglobin A1c (<=6.0) % Plasma Lactic Acid Luis M 1.0 (0.7-2.0) mmol/L Calcium (8.4-10.2) mg/dL Magnesium 1.7 (1.6-2.3) mg/dL Total Bilirubin (0.2-1.3) mg/dL AST (14-36) U/L ALT (4-34) U/L Alkaline Phosphatase (38-126) U/L Troponin I 0.013 (0.000-0.034) ng/mL NT-Pro-B Natriuret Pep pg/mL Total Protein (6.3-8.2) g/dL Albumin (3.5-5.0) g/dL 01/23/24 01/24/24 01/24/24 Range/Units 21:09 03:58 03:58 WBC 7.07 (3.8-10.6) k/uL RBC 3.61 L (3.80-5.40) m/uL Hgb 10.7 L (11.4-16.0) gm/dL Hct 34.1 L (34.0-46.0) % MCV 94.5 (80.0-100.0) fL MCH 29.6 (25.0-35.0) pg MCHC 31.4 L (31.0-37.0) g/dL RDW 15.4 H (11.5-15.5) % Plt Count 201 (150-450) k/uL MPV 11.2 Immature Gran % (Auto) 0.40 % Absolute Nucleated RBC 0 % Neutrophils % 70.1 % Lymphocytes % 12.3 % Monocytes % 9.8 % Eosinophils % 6.1 % Basophils % 1.3 % Immature Gran # 0.03 (0.00-0.04) X 10*3/uL Neutrophils # 4.96 (1.3-7.7) k/uL Lymphocytes # 0.87 L (1.0-4.8) k/uL Monocytes # 0.69 (0-1.0) k/uL Eosinophils # 0.43 H (0-0.7) k/uL Basophils # 0.09 (0-0.2) k/uL NRBC/100 WBC Diff 0 (0.00-0.01) X 10*3/uL PT (10.0-12.5) sec INR (<1.2) APTT (22.0-30.0) sec Sodium (137-145) mmol/L Potassium (3.5-5.1) mmol/L Chloride (98-107) mmol/L Carbon Dioxide (22-30) mmol/L Anion Gap mmol/L BUN (7-17) mg/dL Creatinine (0.52-1.04) mg/dL Est GFR (CKD-EPI) (>=60) Est GFR (CKD-EPI)AfAm (>60 ml/min/1.73 sqM) Est GFR (CKD-EPI)NonAf (>60 ml/min/1.73 sqM) BUN/Creatinine Ratio (12.00-20.00) Ratio Glucose (74-99) mg/dL POC Glucose (mg/dL) 142 H (70-110) mg/dL POC Glu Complaint Clerk ID Kathleen Burger Estimated Ave Glu mg/dL 160 mg/dL Hemoglobin A1c 7.2 H (<=6.0) % Plasma Lactic Acid Luis M (0.7-2.0) mmol/L Calcium (8.4-10.2) mg/dL Magnesium (1.6-2.3) mg/dL Total Bilirubin (0.2-1.3) mg/dL AST (14-36) U/L ALT (4-34) U/L Alkaline Phosphatase (38-126) U/L Troponin I (0.000-0.034) ng/mL NT-Pro-B Natriuret Pep pg/mL Total Protein (6.3-8.2) g/dL Albumin (3.5-5.0) g/dL 01/24/24 01/24/24 01/24/24 Range/Units 03:58 06:22 12:31 WBC (3.8-10.6) k/uL RBC (3.80-5.40) m/uL Hgb (11.4-16.0) gm/dL Hct (34.0-46.0) % MCV (80.0-100.0) fL MCH (25.0-35.0) pg MCHC (31.0-37.0) g/dL RDW (11.5-15.5) % Plt Count (150-450) k/uL MPV Immature Gran % (Auto) % Absolute Nucleated RBC % Neutrophils % % Lymphocytes % % Monocytes % % Eosinophils % % Basophils % % Immature Gran # (0.00-0.04) X 10*3/uL Neutrophils # (1.3-7.7) k/uL Lymphocytes # (1.0-4.8) k/uL Monocytes # (0-1.0) k/uL Eosinophils # (0-0.7) k/uL Basophils # (0-0.2) k/uL NRBC/100 WBC Diff (0.00-0.01) X 10*3/uL PT (10.0-12.5) sec INR (<1.2) APTT (22.0-30.0) sec Sodium 147 H (137-145) mmol/L Potassium 3.5 (3.5-5.1) mmol/L Chloride 106 (98-107) mmol/L Carbon Dioxide 27.7 (22-30) mmol/L Anion Gap 13.30 H mmol/L BUN 26.3 (7-17) mg/dL Creatinine 1.2 (0.52-1.04) mg/dL Est GFR (CKD-EPI) 44 L (>=60) Est GFR (CKD-EPI)AfAm (>60 ml/min/1.73 sqM) Est GFR (CKD-EPI)NonAf (>60 ml/min/1.73 sqM) BUN/Creatinine Ratio 21.92 H (12.00-20.00) Ratio Glucose 118 H (74-99) mg/dL POC Glucose (mg/dL) 108 178 H (70-110) mg/dL POC Glu Complaint Clerk [place], Verenice Garcia Estimated Ave Glu mg/dL mg/dL Hemoglobin A1c (<=6.0) % Plasma Lactic Acid Luis M (0.7-2.0) mmol/L Calcium 8.9 (8.4-10.2) mg/dL Magnesium (1.6-2.3) mg/dL Total Bilirubin (0.2-1.3) mg/dL AST (14-36) U/L ALT (4-34) U/L Alkaline Phosphatase (38-126) U/L Troponin I (0.000-0.034) ng/mL NT-Pro-B Natriuret Pep pg/mL Total Protein (6.3-8.2) g/dL Albumin (3.5-5.0) g/dL Disposition Clinical Impression: CHF exacerbation, Hypoxia, Exertional dyspnea Disposition: ADMITTED IP TO THIS [facility] Condition: Stable Is patient prescribed a controlled substance at d/c from ED?: No Time of Disposition: 16:35 Decision to Admit Reason: Admit from EC Decision Date: 01/23/24 Decision Time: 16:35
[2024-01-23] MEDS: FUROSEMIDE 10 MG/ML 10 ML VIAL IV STA (16:46)
[2024-01-23] MEDS ORDERED: DEXTROSE 50% SYRINGE 50 ML IVP PRN ×2 (17:02)
[2024-01-23] MEDS: INSULIN ASPART (NovoLOG) 100 UNIT/ML VIAL SQ SCH (17:05)
--- NOTE | 2024-01-23 17:28 | P.HPIM ---
History of Present Illness H&P Date: 01/23/24 88 year old F with PMH of diastolic CHF, CKD, HTN, DM, GERD, RLS presents to the ED. She complains of progressively worsening shortness of breath. Breathing has been progressively getting worse over the past 3-4 days. Reports difficulty laying flat at night and worsening lower extremity swelling. She is not aware of any cardiac issues but reports compliance with her medication. She denies any dizziness or chest pain. Denies changes in urination or bowel habits. Has no other complaints. Does not follow a Mail Room. Of note reports a right femoral fracture in July which was surgically re paired in July where she spent 3 weeks in rehab. Currently ambulates with the daughter but does not move around much due to right lower extremity weakness. She lives with her daughter. Most recent Echo 09/2023 shows EF 55-60%, severe pulmonary HTN, moderate LV thickness, mod-severe MR/TR. In the ED, she underwent extensive evaluation. BP 119/61, HR 71, T 97.1F, RR 14, 94% on 2L NC. Per Dr. Earl she did de-saturate into the low 80s with ambulation. CBC and CMP was done remarkable for RBC 3.76, MCV 95.5, K 2.9, BUN 28, Cr 1.05, alk phos 210, total protein 6.2, alb 3.2. Troponin 0.013. BNP 1400. CXR showed pulmonary vascular congestion. Patient was given Lasix 60 mg IV and admitted for CHF exacerbation. General: non toxic, no distress, appears at stated age Derm: warm, dry Head: atraumatic, normocephalic, symmetric Eyes: EOMI, no lid lag, anicteric sclera Mouth: no lip lesion, mucus membranes moist Cardiovascular: S1S2 reg, diastolic murmur Lungs: Decreased BS bilateral, no rhonchi, no rales , no accessory muscle use Ext: no gross muscle atrophy, 2+ pitting bilateral lower extremity edema, no contractures Neuro: no focal neuro deficits Psych: Alert, oriented, appropriate affect Based on my assessment of this patient, this patient meets a high complexity level of care. Acute on chronic diastolic CHF exacerbation: Lasix 40 mg IV BID. Strict intake and outtake. Daily weights. Recent Echo as above. Cardiology consult. Acute hypoxic respiratory failure: Hopeful improvement with diuresis. Hypokalemia: KCl 60 meq PO x 1. Check Mag level. Chronic kidney disease: At baseline. Hypertension: Nifedipine 60 mg PO QD. Hydralazine 50 mg PO BID. Coreg 12.5 mg PO BID. Diabetes mellitus: ISS. Accuchecks ACHS. Hypoglycemic precautions. Check A1c. GERD: Omeprazole 20 mg PO QD. RLS: Ropinirole 4 mg PO BID. CODE STATUS: FULL CODE DVT Prophylaxis: Heparin GI Prophylaxis: Omeprazole Designated medical POA if patient is not able to make medical decisions for themselves: I have reviewed the following medical device sales consultant notes: ED I have reviewed the results of the following tests: As above I have ordered the following tests: As above I have discussed the care of this patient with the following independent historian: I have independently interpreted the following test below: CXR I have discussed the management of this patient with the following physician: Dr. Earl Past Medical History Past Medical History: Heart Failure, Diabetes Mellitus, Hypertension, Pneumonia Additional Past Medical History / Comment(s): new CHF 09/2023, "kidney damage" History of Any Multi-Drug Resistant Organisms: ESBL Date of last positivie culture/infection: 11/26/23 MDRO Source:: Blood Past Surgical History: Hysterectomy Additional Past Surgical History / Comment(s): R hip, cataract sx Past Anesthesia/Blood Transfusion Reactions: No Reported Reaction Smoking Status: Never smoker Past Alcohol Use History: None Reported Past Drug Use History: None Reported Medications and Allergies Home Medications Medication Instructions Recorded Confirmed Type Ergocalciferol (Vitamin D2) 1,250 mcg PO APPIAH 10/08/23 01/23/24 History [Drisdol (50,000 Iu)] Potassium Chloride ER [K-Dur 20] 40 meq PO BID tab 10/19/23 01/23/24 Rx Albuterol Sulfate [Albuterol 2 puff INHALATION RT-Q6H 11/02/23 01/23/24 History Sulfate Hfa] Atorvastatin [Lipitor] 20 mg PO DAILY 11/02/23 01/23/24 History Omeprazole 20 mg PO DAILY 11/02/23 01/23/24 History rOPINIRole HCL [Requip] 4 mg PO BID 11/02/23 01/23/24 History Collagenase [Santyl Ointment] 1 applic TOPICAL DAILY each 11/06/23 01/23/24 Rx DULoxetine HCL [Cymbalta] 60 mg PO BID 11/26/23 01/23/24 History Furosemide [Lasix] 40 mg PO BID@0800,1600 11/26/23 01/23/24 History Insulin Lispro [Insulin Lispro See Protocol SQ AC-TID 11/26/23 01/23/24 History Kwikpen U-100] Ipratropium-Albuterol Nebulize 3 ml INHALATION RT-BID 11/26/23 01/23/24 History [Duoneb 0.5 mg-3 mg/3 ml Soln] Aspirin EC [Ecotrin Low Dose] 81 mg PO DAILY 12/14/23 01/23/24 History NIFEdipine XL [Procardia XL] 60 mg PO DAILY 12/14/23 01/23/24 History carvediloL [Coreg*] 12.5 mg PO BID-W/MEALS #60 tab 12/15/23 01/23/24 Rx hydrALAZINE HCL [Apresoline] 50 mg PO BID #60 tab 12/15/23 01/23/24 Rx Insulin Glargine-Yfgn 22 units SQ HS 01/23/24 01/23/24 History Insulin Lispro [Insulin Lispro 4 unit SQ AC-TID 01/23/24 01/23/24 History Kwikpen U-100] Allergies Allergy/AdvReac Type Severity Reaction Status Date / Time No Known Allergies Allergy Verified 01/23/24 16:17 Physical Exam Vitals: Vital Signs Temp Pulse Resp BP Pulse Ox 01/23/24 17:15 77 20 152/72 92 L 01/23/24 16:29 72 18 123/70 95 01/23/24 14:59 97.1 F L 71 14 119/61 94 L Intake and Output 01/23/24 01/23/24 01/23/24 06:59 14:59 22:59 Other: Weight 64.864 kg Results CBC & Chem 7: 01/23/24 15:09 01/23/24 15:09 Labs: Abnormal Lab Results - Last 24 Hours (Table) 01/23/24 01/23/24 Range/Units 15:09 15:09 RBC 3.76 L (3.80-5.40) m/uL Lymphocytes # 0.8 L (1.0-4.8) k/uL Potassium 2.9 L (3.5-5.1) mmol/L BUN 28 H (7-17) mg/dL Creatinine 1.05 H (0.52-1.04) mg/dL Alkaline Phosphatase 210 H (38-126) U/L Total Protein 6.2 L (6.3-8.2) g/dL Albumin 3.2 L (3.5-5.0) g/dL
[2024-01-23] MEDS ORDERED: INSULIN ASPART (NovoLOG) 100 UNIT/ML VIAL SQ SCH (17:30)
[2024-01-23] MEDS: carvediloL 12.5 MG TAB PO SCH (18:30)
[2024-01-23] MEDS: POTASSIUM CHLORIDE ER 20 MEQ TAB.ER PO STA (18:31)
[2024-01-23] MEDS: ALBUTEROL NEBULIZED 2.5 MG/3 ML INHALATION SCH (20:18)
[2024-01-23] MEDS: IPRATROPIUM-ALBUTEROL 3 ML NEB INHALATION SCH (20:28)
[2024-01-23] MEDS ORDERED: INSULIN DETEMIR (LEVEMIR) 100 UNIT/ML SYR SQ SCH (21:00)
[2024-01-23 21:10] LABS: Glucose,Whole Blood 142 mg/dL (70-110)
[2024-01-23] MEDS: DULoxetine HCL 60 MG CAPSULE.DR PO SCH (21:10)
[2024-01-23] MEDS: hydrALAZINE HCL 50 MG TAB PO SCH (21:10)
[2024-01-23] MEDS: rOPINIRole HCL 4 MG TABLET PO SCH (21:10)
[2024-01-23] MEDS: HEPARIN SODIUM,PORCINE 5,000 UNIT/ML 1 ML VIAL SQ SCH (21:10)
[2024-01-24 06:24] LABS: Glucose,Whole Blood 108 mg/dL (70-110)
[2024-01-24] MEDS: PANTOPRAZOLE 40 MG TABLET PO SCH (06:28)
[2024-01-24] MEDS: ASPIRIN 81 MG PO SCH (08:38)
[2024-01-24] MEDS: FUROSEMIDE 10 MG/ML 4 ML VIAL IV SCH (08:38)
[2024-01-24] MEDS: ATORVASTATIN 20 MG TAB PO SCH (08:38)
[2024-01-24] MEDS: IPRATROPIUM-ALBUTEROL 3 ML NEB INHALATION SCH (08:50)
[2024-01-24 09:55] LABS: Basophils # (A) 0.09 X 10*3/uL (0.00-0.10); Basophils % (A) 1.3 %; Eosinophils # (A) 0.43 X 10*3/uL (0.04-0.35); Eosinophils % (A) 6.1 %; HCT 34.1 % (37.2-46.3); HGB 10.7 g/dL (12.0-15.0); Lymphocytes # (A) 0.87 X 10*3/uL (0.90-5.00); Lymphocytes % (A) 12.3 %; MCH 29.6 pg (27.0-32.0); MCHC 31.4 g/dL (32.0-37.0); MCV 94.5 FL (80.0-97.0); Mean Platelet Volume 11.2 FL (9.5-12.2); Monocytes # (A) 0.69 X 10*3/uL (0.20-1.00); Monocytes % (A) 9.8 %; NRBC Per 100 WBC 0 X 10*3/uL (0.00-0.01); Neutrophils # (A) 4.96 X 10*3/uL (1.80-7.70); Neutrophils % (A) 70.1 %; Platelet Count 201 X 10*3/uL (140-440); RBC 3.61 X 10*6/uL (4.10-5.20); RDW 15.4 % (11.5-14.5); WBC 7.07 X 10*3/uL (4.50-10.00)
[2024-01-24 09:56] LABS: BUN/Creat Ratio 21.92 Ratio (12.00-20.00); Blood Urea Nitrogen 26.3 mg/dL (9.0-27.0); Calcium 8.9 mg/dL (8.7-10.3); Carbon Dioxide 27.7 mmol/L (21.6-31.8); Chloride 106 mmol/L (96-109); Glucose 118 mg/dL (70-110); Potassium 3.5 mmol/L (3.5-5.5); Sodium 147 mmol/L (135-145)
[2024-01-24 12:32] LABS: Glucose,Whole Blood 178 mg/dL (70-110)
--- NOTE | 2024-01-24 16:56 | P.PN ---
Subjective Progress Note Date: 01/24/24 (delayed charting seen at 0930) Patient is an 88-year-old female with known diastolic congestive heart failure, chronic kidney disease stage III, hypertension, diabetes, and GERD who presented to the emergency department due to shortness of breath. On arrival to the ER her vital signs were within normal limits. Initial laboratory analysis was remarkable for potassium of 2.9 and BNP of 1400. Chest x-ray demonstrated pulmonary vascular congestion. Patient was given Lasix 60 mg IV push x 1 and arrangements were made for admission for acute exacerbation of diastolic congestive heart failure. Patient seen and examined at bedside. She has no complaints currently. Breathing is somewhat better than yesterday. No lower extremity edema. Vital signs reviewed General: Nontoxic, no distress, appears at stated age Cardiovascular: S1S2 reg, no murmur Lungs: Course bs bilateral, no rhonchi, no rales, no accessory muscle use Abdominal: Soft, nontender to palpation, no guarding Ext: No gross muscle atrophy, no edema b/l lower extremities, no contractures Neuro: CN II-XI grossly intact, no focal neuro deficits Psych: Alert, oriented, appropriate affect Assessment/Plan: Acute exacerbation of diastolic congestive heart failure with ejection fraction 55 to 60%. Severe pulmonary hypertension with RVSP of 60, Moderate to severe mitral regurgitation, moderate to severe tricuspid regurgitation Acute hypoxic respiratory failure due to CHF Hypertension -Continue with Lasix 40 mg IV twice daily -Await cardiology consultation -Nifedipine 60 mg daily, Coreg 12.5 mg twice daily, hydralazine 50 mg twice daily -Lipitor 40 mg daily -Aspirin 81 mg daily -Strict I's and O's, daily weights Diabetes mellitus type 2 -Sliding scale insulin -Patient is on glargine 22 mg at night, lispro 4 mg with meals, and sliding scale at home -A.m. fasting blood sugar here was 108. Will continue to monitor before resuming long-acting insulin. -A1c 7.2 CKD stage IIIb, at baseline Transition to inpatient as patient still requiring O2 with needs increasing to 3L wiht O2 sat marginal at 90. Imaging: None new Data Review: Labs reviewed from today include CBC and basic metabolic profile which are remarkable for sodium 147, potassium 3.5, creatinine 1.2, and A1c 7.2 DVT prophylaxis: Heparin Anticipated discharge date: in AM Anticipated discharge place: Home health This dictation was prepared using [employer] voice recognition software. Though every attempt is made to correct errors during dictation some may still exist. Objective - Vital Signs Vital signs: Vital Signs Temp 97.3 F L 01/24/24 14:00 Pulse 74 01/24/24 14:00 Resp 17 01/24/24 14:00 BP 133/67 01/24/24 14:00 Pulse Ox 93 L 01/24/24 14:00 FiO2 Intake & Output 01/23/24 01/24/24 01/24/24 18:59 06:59 18:59 Intake Total 1224 Output Total 550 Balance -550 1224 Weight 64.864 kg 69 kg Intake: Oral 1224 Output: Urine 550 Other: Voiding Method External Catheter External Catheter - Labs CBC & Chem 7: 01/24/24 03:58 01/24/24 03:58 Labs: Abnormal Lab Results - Last 24 Hours (Table) 01/23/24 01/24/24 01/24/24 Range/Units 21:09 03:58 03:58 RBC 3.61 L (4.10-5.20) X 10*6/uL Hgb 10.7 L (12.0-15.0) g/dL Hct 34.1 L (37.2-46.3) % MCHC 31.4 L (32.0-37.0) g/dL RDW 15.4 H (11.5-14.5) % Lymphocytes # 0.87 L (0.90-5.00) X 10*3/uL Eosinophils # 0.43 H (0.04-0.35) X 10*3/uL Sodium (135-145) mmol/L Anion Gap (4.00-12.00) mmol/L Est GFR (CKD-EPI) (>=60) BUN/Creatinine Ratio (12.00-20.00) Ratio Glucose (70-110) mg/dL POC Glucose (mg/dL) 142 H (70-110) mg/dL Hemoglobin A1c 7.2 H (<=6.0) % 01/24/24 01/24/24 Range/Units 03:58 12:31 RBC (4.10-5.20) X 10*6/uL Hgb (12.0-15.0) g/dL Hct (37.2-46.3) % MCHC (32.0-37.0) g/dL RDW (11.5-14.5) % Lymphocytes # (0.90-5.00) X 10*3/uL Eosinophils # (0.04-0.35) X 10*3/uL Sodium 147 H (135-145) mmol/L Anion Gap 13.30 H (4.00-12.00) mmol/L Est GFR (CKD-EPI) 44 L (>=60) BUN/Creatinine Ratio 21.92 H (12.00-20.00) Ratio Glucose 118 H (70-110) mg/dL POC Glucose (mg/dL) 178 H (70-110) mg/dL Hemoglobin A1c (<=6.0) %
[2024-01-24 17:42] LABS: Glucose,Whole Blood 245 mg/dL (70-110)
[2024-01-24 20:19] LABS: Glucose,Whole Blood 400 mg/dL (70-110)
--- NOTE | 2024-01-24 21:14 | CONS ---
CONSULTATION CHIEF COMPLAINT: Shortness of breath. HISTORY OF PRESENT ILLNESS: Sherry is an 88-year-old lady with history of hypertension, diabetes, dyslipidemia, and chronic diastolic heart failure, who presented to hospital complaining of worsening shortness of breath, leg edema, and weight gain. She had been treated with diuretics with some improvement in her symptoms. At the time of my evaluation, she does not seem to be in respiratory distress, but has bilateral leg edema. Her creatinine is 1.2, BUN is 26. Her BNP is elevated at 1400. Troponin is negative. Clinical presentation is consistent with acute exacerbation of chronic diastolic heart failure. She had an echocardiogram in September of this year that revealed normal LV systolic function, severe pulmonary hypertension, [id number] mitral and tricuspid regurgitation. PAST MEDICAL HISTORY: Significant for valvular heart disease, hypertension, diabetes, dyslipidemia. MEDICATIONS: Medications at home include; 1. Insulin. 2. Requip. 3. Apresoline. 4. Coreg. 5. K-Dur. 6. Nifedipine. 7. Lasix. 8. Cymbalta. 9. Lipitor. 10.Aspirin. ALLERGIES: There are no known drug allergies. FAMILY HISTORY: Negative for premature coronary artery disease. SOCIAL HISTORY: Negative for current smoking, EtOH abuse, or drug abuse. REVIEW OF SYSTEMS: HEENT: Unremarkable. CARDIAC: As described above. RESPIRATORY: As described above. GI: Negative. GENITOURINARY: Negative. MUSCULOSKELETAL: Significant for arthritis. PSYCHOSOCIAL: Negative. DERM: Negative. CONSTITUTIONAL: Negative. ONCOLOGIC: Negative. Rest of the system review is not relevant. PHYSICAL EXAMINATION: GENERAL: Comfortable at rest. VITAL SIGNS: Stable. CHEST: Reveals good air entry bilaterally. HEART: Reveals first and second heart sounds. Systolic murmur at the apex and at the left lower sternal border. ABDOMEN: Soft. EXTREMITIES: Reveal bilateral 1+ pitting edema. LABORATORY DATA: Labs show that the hemoglobin is normal. Creatinine is normal. BNP is mildly elevated. ASSESSMENT: Acute exacerbation of chronic diastolic heart failure. PLAN: I will treat the patient with IV diuretics. Follow her electrolytes and adjust the medications as needed. MMODL / IJN: [id number] /
[2024-01-24] MEDS: INSULIN ASPART (NovoLOG) 100 UNIT/ML VIAL SQ ONE (21:22)
[2024-01-25 05:32] LABS: Glucose,Whole Blood 64 mg/dL (70-110)
[2024-01-25 05:56] LABS: Glucose,Whole Blood 92 mg/dL (70-110)
[2024-01-25 07:38] LABS: HGB 11.9 gm/dL (11.4-16.0); MCH 29.4 pg (25.0-35.0); MCHC 30.7 g/dL (31.0-37.0); MCV 95.9 fL (80.0-100.0); Platelet Count 218 k/uL (150-450); RBC 4.06 m/uL (3.80-5.40); RDW 15.1 % (11.5-15.5); WBC 9.7 k/uL (3.8-10.6)
[2024-01-25 07:50] LABS: African American GFR (CKD) 51 (>60 ml/min/1.73 sqM); Anion Gap 7 mmol/L; Blood Urea Nitrogen 29 mg/dL (7-17); Calcium 9.2 mg/dL (8.4-10.2); Carbon Dioxide 32 mmol/L (22-30); Chloride 101 mmol/L (98-107); Glucose 132 mg/dL (74-99); Magnesium 1.6 mg/dL (1.6-2.3); Non-African American GFR(CKD) 45 (>60 ml/min/1.73 sqM); Potassium 3.6 mmol/L (3.5-5.1); Sodium 140 mmol/L (137-145)
[2024-01-25 12:07] LABS: Glucose,Whole Blood 251 mg/dL (70-110)
--- NOTE | 2024-01-25 14:41 | P.PN ---
Subjective Progress Note Date: 01/25/24 History of present illness: This is an 88-year-old female with past medical history of hypertension, diabe ani, dyslipidemia, chronic diastolic heart failure who presented to the hospital with worsening shortness of breath, leg edema, and weight gain. Patient was treated with diuretics with some improvement of her symptoms. Upon initial consultation, patient did not have any significant respiratory distress but did have bilateral lower extremity edema. Echocardiogram in September of this year revealed normal LV systolic function, severe pulmonary hypertension, moderate to severe mitral and tricuspid regurgitation. Patient has been maintained on IV Lasix. Repeat blood work reveals WBC 9.7, hemoglobin 11.9. Patient states that she is feeling tired but her breathing has not improved. She thinks she can lay flat but she still feels shortness of breath in any position. She is utilizing oxygen which she has at home as needed only. She denies having any chest pain. Physical examination: Gen: This is an 88-year-old female in no acute distress VS: reviewed, blood pressure 159/71, heart rate 84, pulse ox 93% on 4 L nasal cannula. HEENT: Head is atraumatic, normocephalic. Pupils equal, round. Sclerae is anicteric. LUNGS: Bilateral wheezing. No intercostal retractions. HEART: Regular rate and rhythm. Systolic murmur at the apex and at the left lower sternal border. EXTREMITIES: No pedal edema. No calf tenderness. NEUROLOGICAL: Patient is awake, alert and oriented x3. Assessment: Acute on chronic diastolic heart failure Severe pulmonary hypertension Valvular heart disease with moderate to severe mitral and tricuspid regurgitation Plan: Continue current cardiac medications No need to repeat echocardiogram as this was done in September Continue patient on IV Lasix 40 mg twice daily Monitor MARLENA, daily weights, electrolytes and renal function Further recommendations to follow based upon clinical course Nurse practitioner note has been reviewed, I agree with documented findings and plan of care. Patient was seen and examined. Objective - Vital Signs Vital signs: Vital Signs Temp 97.3 F L 01/25/24 02:00 Pulse 84 01/25/24 02:00 Resp 16 01/25/24 02:00 BP 159/71 01/25/24 02:00 Pulse Ox 93 L 01/25/24 02:00 FiO2 Intake & Output 01/24/24 01/25/24 01/25/24 18:59 06:59 18:59 Intake Total 1224 Output Total 700 1500 Balance 524 -1500 Weight 66 kg Intake: Oral 1224 Output: Urine 700 1500 Other: Voiding Method External Catheter - Labs CBC & Chem 7: 01/25/24 06:56 01/25/24 06:56 Labs: Abnormal Lab Results - Last 24 Hours (Table) 01/24/24 01/24/24 01/24/24 Range/Units 03:58 03:58 03:58 RBC 3.61 L (4.10-5.20) X 10*6/uL Hgb 10.7 L (12.0-15.0) g/dL Hct 34.1 L (37.2-46.3) % MCHC 31.4 L (32.0-37.0) g/dL RDW 15.4 H (11.5-14.5) % Lymphocytes # 0.87 L (0.90-5.00) X 10*3/uL Eosinophils # 0.43 H (0.04-0.35) X 10*3/uL Sodium 147 H (135-145) mmol/L Anion Gap 13.30 H (4.00-12.00) mmol/L Est GFR (CKD-EPI) 44 L (>=60) BUN/Creatinine Ratio 21.92 H (12.00-20.00) Ratio Glucose 118 H (70-110) mg/dL POC Glucose (mg/dL) (70-110) mg/dL Hemoglobin A1c 7.2 H (<=6.0) % 01/24/24 01/24/24 01/24/24 Range/Units 12:31 17:41 20:17 RBC (4.10-5.20) X 10*6/uL Hgb (12.0-15.0) g/dL Hct (37.2-46.3) % MCHC (32.0-37.0) g/dL RDW (11.5-14.5) % Lymphocytes # (0.90-5.00) X 10*3/uL Eosinophils # (0.04-0.35) X 10*3/uL Sodium (135-145) mmol/L Anion Gap (4.00-12.00) mmol/L Est GFR (CKD-EPI) (>=60) BUN/Creatinine Ratio (12.00-20.00) Ratio Glucose (70-110) mg/dL POC Glucose (mg/dL) 178 H 245 H 400 H (70-110) mg/dL Hemoglobin A1c (<=6.0) % 01/25/24 01/25/24 Range/Units 05:30 06:56 RBC (4.10-5.20) X 10*6/uL Hgb (12.0-15.0) g/dL Hct (37.2-46.3) % MCHC 30.7 L (32.0-37.0) g/dL RDW (11.5-14.5) % Lymphocytes # (0.90-5.00) X 10*3/uL Eosinophils # (0.04-0.35) X 10*3/uL Sodium (135-145) mmol/L Anion Gap (4.00-12.00) mmol/L Est GFR (CKD-EPI) (>=60) BUN/Creatinine Ratio (12.00-20.00) Ratio Glucose (70-110) mg/dL POC Glucose (mg/dL) 64 L (70-110) mg/dL Hemoglobin A1c (<=6.0) %
--- NOTE | 2024-01-25 15:18 | XR ---
EXAMINATION TYPE: XR chest 1V portable DATE OF EXAM: 01/25/2024 3:05 PM CLINICAL INDICATION:Female, 88 years old with history of shortness of breath; [facility] COMPARISON: 01/23/2024 TECHNIQUE: XR chest 1V portable Frontal view of the chest. FINDINGS: Lungs/Pleura: Multifocal airspace opacities. No evidence of pneumothorax or pleural effusion. Pulmonary vascularity: Pulmonary vascular congestion. Heart/mediastinum: Cardiomediastinal silhouette is prominent in size. Atherosclerotic calcifications are seen in the aorta. Musculoskeletal: Degenerative changes of the shoulder joints. IMPRESSION: Multifocal airspace opacities correlate for multifocal pneumonia with superimposed CHF not entirely e xcluded..
[2024-01-25 15:20] VITALS: BMI 25.7
--- NOTE | 2024-01-25 16:02 | P.PN ---
Subjective Progress Note Date: 01/25/24 (delayed charting seen at 0845) Patient is an 88-year-old female with known diastolic congestive heart failure, chronic kidney disease stage III, hypertension, diabetes, and GERD who presented to the emergency department due to shortness of breath. On arrival to the ER her vital signs were within normal limits. Initial laboratory analysis was remarkable for potassium of 2.9 and BNP of 1400. Chest x-ray demonstrated pulmonary vascular congestion. Patient was given Lasix 60 mg IV push x 1 and arrangements were made for admission for acute exacerbation of diastolic congestive heart failure. She was continued on Lasix 40 mg twice daily. Her home insulin was held due to low blood sugars. Cardiology was consulted. Patient seen and examined at bedside. She still continues to feel slightly woozy today. She denies any nausea or vomiting. She overall feels better than on admission but is still continues to have some shortness of breath Vital signs reviewed General: Nontoxic, no distress, appears at stated age Cardiovascular: S1S2 reg, no murmur Lungs: Course bs bilateral, no rhonchi, no rales, no accessory muscle use Abdominal: Soft, nontender to palpation, no guarding Ext: No gross muscle atrophy, no edema b/l lower extremities, no contractures Neuro: CN II-XI grossly intact, no focal neuro deficits Psych: Alert, oriented, appropriate affect Assessment/Plan: Acute exacerbation of diastolic congestive heart failure with ejection fraction 55 to 60%. Severe pulmonary hypertension with RVSP of 60, Moderate to severe mitral regurgitation, moderate to severe tricuspid regurgitation Acute hypoxic respiratory failure due to CHF Hypertension -Continue with Lasix 40 mg IV twice daily -Cardiology recommendations reviewed: Continue with IV Lasix. No need to repeat echo as patient had one in September. -Nifedipine 60 mg daily, Coreg 12.5 mg twice daily, hydralazine 50 mg twice daily -Lipitor 40 mg daily -Aspirin 81 mg daily -Strict I's and O's, daily weights Diabetes mellitus type 2 - patient had hyperglycemia last evening at 8 PM and received extra insulin. This morning at 530 her blood sugar was down to 64. Her blood sugar is now up to over 300. Will start NovoLog 2 units with meals and Levemir 5 units at night. Continue with sliding scale insulin. Add to a.m. blood sugar check for this morning. -Sliding scale insulin -Patient is on glargine 22 mg at night, lispro 4 mg with meals, and sliding scale at home Hypomagnesemia -Magnesium oxide 400 mg oral x 3 doses -A1c 7.2 CKD stage IIIb, at baseline - better than baseline - monitor Cr Imaging: Chest x-ray ordered and reviewed which shows multifocal airspace opacities correlate for multifocal pneumonia versus congestive heart failure. Data Review: Labs reviewed from this morning include CBC and basic metabolic profile which are remarkable for BUN 29 creatinine 1.11 and magnesium 1.6 DVT prophylaxis: Heparin Anticipated discharge date: in AM Anticipated discharge place: Home health This dictation was prepared using [employer] voice recognition software. Though every attempt is made to correct errors during dictation some may still exist. Objective - Vital Signs Vital signs: Vital Signs Temp 97.1 F L 01/25/24 14:41 Pulse 72 01/25/24 15:34 Resp 16 01/25/24 14:41 BP 146/67 01/25/24 14:41 Pulse Ox 98 01/25/24 14:41 FiO2 Intake & Output 01/24/24 01/25/24 01/25/24 18:59 06:59 18:59 Intake Total 1224 570 Output Total 700 1500 Balance 524 -1500 570 Weight 66 kg 66 kg Intake: Oral 1224 570 Output: Urine 700 1500 Other: Voiding Method External Catheter External Catheter - Labs CBC & Chem 7: 01/25/24 06:56 01/25/24 06:56 Labs: Abnormal Lab Results - Last 24 Hours (Table) 01/24/24 01/24/24 01/25/24 Range/Units 17:41 20:17 05:30 MCHC (31.0-37.0) g/dL Carbon Dioxide (22-30) mmol/L BUN (7-17) mg/dL Creatinine (0.52-1.04) mg/dL Glucose (74-99) mg/dL POC Glucose (mg/dL) 245 H 400 H 64 L (70-110) mg/dL 01/25/24 01/25/24 01/25/24 Range/Units 06:56 06:56 12:05 MCHC 30.7 L (31.0-37.0) g/dL Carbon Dioxide 32 H (22-30) mmol/L BUN 29 H (7-17) mg/dL Creatinine 1.11 H (0.52-1.04) mg/dL Glucose 132 H (74-99) mg/dL POC Glucose (mg/dL) 251 H (70-110) mg/dL
[2024-01-25 17:24] LABS: Glucose,Whole Blood 307 mg/dL (70-110)
[2024-01-25] MEDS: MAGNESIUM OXIDE 400 MG TAB PO SCH (18:16)
[2024-01-25] MEDS: INSULIN ASPART (NovoLOG) 100 UNIT/ML VIAL SQ SCH (18:17)
[2024-01-25 20:53] LABS: Glucose,Whole Blood 161 mg/dL (70-110)
[2024-01-25] MEDS: INSULIN DETEMIR (LEVEMIR) 100 UNIT/ML SYR SQ SCH (20:54)
[2024-01-26 02:00] LABS: Glucose,Whole Blood 73 mg/dL (70-110)
[2024-01-26 06:27] LABS: Glucose,Whole Blood 121 mg/dL (70-110)
[2024-01-26 08:07] LABS: HCT 36.6 % (34.0-46.0); HGB 11.5 gm/dL (11.4-16.0); Hypochromasia Slight; MCH 29.7 pg (25.0-35.0); MCHC 31.3 g/dL (31.0-37.0); MCV 94.9 fL (80.0-100.0); Mean Platelet Volume 9.6; Platelet Count 211 k/uL (150-450); RBC 3.86 m/uL (3.80-5.40); WBC 6.9 k/uL (3.8-10.6)
[2024-01-26 08:21] LABS: African American GFR (CKD) 61 (>60 ml/min/1.73 sqM); Anion Gap 4 mmol/L; Blood Urea Nitrogen 30 mg/dL (7-17); Carbon Dioxide 35 mmol/L (22-30); Chloride 99 mmol/L (98-107); Glucose 131 mg/dL (74-99); Magnesium 1.7 mg/dL (1.6-2.3); Non-African American GFR(CKD) 53 (>60 ml/min/1.73 sqM); Potassium 3.3 mmol/L (3.5-5.1); Sodium 138 mmol/L (137-145)
[2024-01-26] MEDS: POTASSIUM CHLORIDE ER 20 MEQ TAB.ER PO STA (10:58)
[2024-01-26 12:00] LABS: Glucose,Whole Blood 223 mg/dL (70-110)
[2024-01-26] MEDS: INSULIN ASPART (NovoLOG) 100 UNIT/ML VIAL SQ SCH (12:34)
--- NOTE | 2024-01-26 13:57 | P.PN ---
Subjective Progress Note Date: 01/26/24 History of present illness: This is an 88-year-old female with past medical history of hypertension, diabe ani, dyslipidemia, chronic diastolic heart failure who presented to the hospital with worsening shortness of breath, leg edema, and weight gain. Patient was treated with diuretics with some improvement of her symptoms. Upon initial consultation, patient did not have any significant respiratory distress but did have bilateral lower extremity edema. Echocardiogram in September of this year revealed normal LV systolic function, severe pulmonary hypertension, moderate to severe mitral and tricuspid regurgitation. Patient has been maintained on IV Lasix. Repeat blood work reveals WBC 9.7, hemoglobin 11.9. Patient states that she is feeling tired but her breathing has not improved. She thinks she can lay flat but she still feels shortness of breath in any position. She is utilizing oxygen which she has at home as needed only. She denies having any chest pain. 01/25 Patient is seen today in follow-up. She states she is feeling very good today. Breathing is much better. She is continues to have some expiratory wheezing. No lower extremity edema. Blood pressure 129/64, heart rate 71, pulse ox 96% on 4 L nasal cannula. Physical examination: Gen: This is an 88-year-old female in no acute distress VS: reviewed HEENT: Head is atraumatic, normocephalic. Pupils equal, round. Sclerae is anicteric. LUNGS: Bilateral wheezing. No intercostal retractions. HEART: Regular rate and rhythm. Systolic murmur at the apex and at the left lower sternal border. EXTREMITIES: No pedal edema. No calf tenderness. NEUROLOGICAL: Patient is awake, alert and oriented x3. Assessment: Acute on chronic diastolic heart failure Severe pulmonary hypertension Valvular heart disease with moderate to severe mitral and tricuspid regurgitation Plan: Continue current cardiac medications No need to repeat echocardiogram as this was done in September Continue patient on IV Lasix 40 mg twice daily for another 24 hours Monitor MARLENA, daily weights, electrolytes and renal function Further recommendations to follow based upon clinical course Nurse practitioner note has been reviewed, I agree with documented findings and plan of care. Patient was seen and examined. Objective - Vital Signs Vital signs: Vital Signs Temp 97.4 F L 01/26/24 07:10 Pulse 76 01/26/24 08:37 Resp 17 01/26/24 07:10 BP 129/64 01/26/24 07:10 Pulse Ox 96 01/26/24 07:10 FiO2 Intake & Output 01/25/24 01/26/24 01/26/24 18:59 06:59 18:59 Intake Total 570 118 Output Total 1200 Balance 570 -1082 Weight 66 kg 60 kg Intake: Oral 570 118 Output: Urine 1200 Other: Voiding Method External Catheter External Catheter - Labs CBC & Chem 7: 01/26/24 07:19 01/26/24 07:19 Labs: Abnormal Lab Results - Last 24 Hours (Table) 01/25/24 01/25/24 01/25/24 Range/Units 12:05 17:22 20:51 Potassium (3.5-5.1) mmol/L Carbon Dioxide (22-30) mmol/L BUN (7-17) mg/dL Glucose (74-99) mg/dL POC Glucose (mg/dL) 251 H 307 H 161 H (70-110) mg/dL 01/26/24 01/26/24 Range/Units 06:26 07:19 Potassium 3.3 L (3.5-5.1) mmol/L Carbon Dioxide 35 H (22-30) mmol/L BUN 30 H (7-17) mg/dL Glucose 131 H (74-99) mg/dL POC Glucose (mg/dL) 121 H (70-110) mg/dL
--- NOTE | 2024-01-26 16:21 | P.PN ---
Subjective Progress Note Date: 01/26/24 (delayed charting seen at approx 1110) Patient is an 88-year-old female with known diastolic congestive heart failure, chronic kidney disease stage III, hypertension, diabetes, and GERD who presented to the emergency department due to shortness of breath. On arrival to the ER her vital signs were within normal limits. Initial laboratory analysis was remarkable for potassium of 2.9 and BNP of 1400. Chest x-ray demonstrated pulmonary vascular congestion. Patient was given Lasix 60 mg IV push x 1 and arrangements were made for admission for acute exacerbation of diastolic congestive heart failure. She was continued on Lasix 40 mg twice daily. Her home insulin was held due to low blood sugars. Cardiology was consulted. She conitnued to diuresis well. She did have labile blood sugars. Patient seen and examined at bedside with daughter present. She is feeling better today. She is breathing easier. She states her fogginess is getting better. Daughter present at bedside. All questions answered. Apparently the patient had recently insulin adjusted and is no longer taking a.m. insulin and has been taking some glyburide 5 mg daily. We discussed her progress and improvement in her respiratory status. We also discussed that patient likely will be discharged tomorrow and that we will repeat her chest x-ray. Vital signs reviewed General: Nontoxic, no distress, appears at stated age Cardiovascular: S1S2 reg, no murmur Lungs: Course bs bilateral, no rhonchi, no rales, no accessory muscle use Abdominal: Soft, nontender to palpation, no guarding Ext: No gross muscle atrophy, no edema b/l lower extremities, no contractures Neuro: CN II-XI grossly intact, no focal neuro deficits Psych: Alert, oriented, appropriate affect Assessment/Plan: Acute exacerbation of diastolic congestive heart failure with ejection fraction 55 to 60%. Severe pulmonary hypertension with RVSP of 60, Moderate to severe mitral regurgitation, moderate to severe tricuspid regurgitation Acute hypoxic respiratory failure due to CHF Hypertension -Continue with Lasix 40 mg IV twice daily -Cardiology note reviewed: Monitor intake and output. Continue IV Lasix for an additional 24 hours. -Nifedipine 60 mg daily, Coreg 12.5 mg twice daily, hydralazine 50 mg twice daily -Lipitor 40 mg daily -Aspirin 81 mg daily -Strict I's and O's, daily weights Diabetes mellitus type 2 -Patient's blood sugar was 73 overnight. Had a long discussion with the daughter that she may be having some nocturnal hypoglycemia at home. Discussed with daughter and patient that we will again wake her up at 2 AM to see how her blood sugar is doing. Patient does follow with an spray machine operator on an outpatient basis. Discontinue fixed dose insulin with breakfast. Continue with lunch and dinner. -Patient is on glargine 22 mg at night, lispro 4 mg with lunch and dinner, and sliding scale at home Hypomagnesemia Hypokalemia -Magnesium oxide 400 mg x 3 doses -Potassium chloride 40 mill equivalents p.o. x 1 CKD stage IIIb, at baseline - better than baseline - monitor Cr Imaging: None new Data Review: Labs reviewed from today include CBC and basic metabolic profile which are remarkable for potassium 3.3 and magnesium 1.7. DVT prophylaxis: Heparin Anticipated discharge date: in AM Anticipated discharge place: Home health This dictation was prepared using [employer] voice recognition software. Though every attempt is made to correct errors during dictation some may still exist. Objective - Vital Signs Vital signs: Vital Signs Temp 98.4 F 01/26/24 14:19 Pulse 76 01/26/24 15:21 Resp 18 01/26/24 14:19 BP 120/68 01/26/24 14:19 Pulse Ox 97 01/26/24 14:19 FiO2 Intake & Output 01/25/24 01/26/24 01/26/24 18:59 06:59 18:59 Intake Total 570 118 118 Output Total 1200 200 Balance 570 -1082 -82 Weight 66 kg 60 kg Intake: Oral 570 118 118 Output: Urine 1200 200 Other: Voiding Method External Catheter External Catheter - Labs CBC & Chem 7: 01/26/24 07:19 01/26/24 07:19 Labs: Abnormal Lab Results - Last 24 Hours (Table) 01/25/24 01/25/24 01/26/24 Range/Units 17:22 20:51 06:26 Potassium (3.5-5.1) mmol/L Carbon Dioxide (22-30) mmol/L BUN (7-17) mg/dL Glucose (74-99) mg/dL POC Glucose (mg/dL) 307 H 161 H 121 H (70-110) mg/dL 01/26/24 01/26/24 Range/Units 07:19 11:58 Potassium 3.3 L (3.5-5.1) mmol/L Carbon Dioxide 35 H (22-30) mmol/L BUN 30 H (7-17) mg/dL Glucose 131 H (74-99) mg/dL POC Glucose (mg/dL) 223 H (70-110) mg/dL
[2024-01-26 17:18] LABS: Glucose,Whole Blood 221 mg/dL (70-110)
[2024-01-26] MEDS: MAGNESIUM OXIDE 400 MG TAB PO SCH (17:57)
[2024-01-26 20:21] LABS: Glucose,Whole Blood 233 mg/dL (70-110)
[2024-01-27 02:39] LABS: Glucose,Whole Blood 153 mg/dL (70-110)
[2024-01-27 06:09] LABS: Glucose,Whole Blood 131 mg/dL (70-110)
--- NOTE | 2024-01-27 08:01 | XR ---
EXAMINATION TYPE: XR chest 1V portable DATE OF EXAM: 01/27/2024 7:03 AM CLINICAL INDICATION:Female, 88 years old with history of CHF; H COMPARISON: Chest radiographs from 01/25/2024 TECHNIQUE: XR chest 1V portable Frontal view of the chest. FINDINGS: Lungs/Pleura: There is no evidence of pleural effusion, focal consolidation, or pneumothorax. Pulmonary vascularity: Pulmonary vascular congestion. Heart/mediastinum: Cardiomediastinal silhouette is enlarged and stable. Musculoskeletal: No acute osseous pathology. Other findings: None IMPRESSION: Cardiomegaly and mild pulmonary vascular congestion. Correlate with BNP for congestive heart failure.
[2024-01-27 08:40] LABS: African American GFR (CKD) 45 (>60 ml/min/1.73 sqM); Anion Gap 4 mmol/L; Blood Urea Nitrogen 32 mg/dL (7-17); Carbon Dioxide 35 mmol/L (22-30); Chloride 101 mmol/L (98-107); Glucose 135 mg/dL (74-99); Magnesium 1.8 mg/dL (1.6-2.3); Non-African American GFR(CKD) 39 (>60 ml/min/1.73 sqM); Potassium 3.7 mmol/L (3.5-5.1); Sodium 140 mmol/L (137-145)
[2024-01-27 12:25] LABS: Glucose,Whole Blood 367 mg/dL (70-110)
--- NOTE | 2024-01-27 14:44 | P.PN ---
Subjective Progress Note Date: 01/27/24 History of present illness: This is an 88-year-old female with past medical history of hypertension, diabe ani, dyslipidemia, chronic diastolic heart failure who presented to the hospital with worsening shortness of breath, leg edema, and weight gain. Patient was treated with diuretics with some improvement of her symptoms. Upon initial consultation, patient did not have any significant respiratory distress but did have bilateral lower extremity edema. Echocardiogram in September of this year revealed normal LV systolic function, severe pulmonary hypertension, moderate to severe mitral and tricuspid regurgitation. Patient has been maintained on IV Lasix. Repeat blood work reveals WBC 9.7, hemoglobin 11.9. Patient states that she is feeling tired but her breathing has not improved. She thinks she can lay flat but she still feels shortness of breath in any position. She is utilizing oxygen which she has at home as needed only. She denies having any chest pain. 01/25 Patient is seen today in follow-up. She states she is feeling very good today. Breathing is much better. She is continues to have some expiratory wheezing. No lower extremity edema. Blood pressure 129/64, heart rate 71, pulse ox 96% on 4 L nasal cannula. 01/26 Patient states that her breathing is about the same from yesterday. She continues to have some expiratory wheezing. She has been maintained on IV Lasix 40 mg twice daily. Blood pressure 158/79, heart rate in the 70s. Repeat blood work reveals BUN 32 creatinine 1.25. Potassium 3.7. Physical examination: Gen: This is an 88-year-old female in no acute distress VS: reviewed HEENT: Head is atraumatic, normocephalic. Pupils equal, round. Sclerae is anic teric. LUNGS: Bilateral wheezing. No intercostal retractions. HEART: Regular rate and rhythm. Systolic murmur at the apex and at the left lower sternal border. EXTREMITIES: No pedal edema. No calf tenderness. NEUROLOGICAL: Patient is awake, alert and oriented x3. Assessment: Acute on chronic diastolic heart failure Severe pulmonary hypertension Valvular heart disease with moderate to severe mitral and tricuspid regurgitation Plan: Continue current cardiac medications No need to repeat echocardiogram as this was done in September Continue patient on IV Lasix 40 mg twice daily for another 24 hours and transition to oral Lasix in the morning with plan for discharge home tomorrow Monitor MARLENA, daily weights, electrolytes and renal function Further recommendations to follow based upon clinical course Nurse practitioner note has been reviewed, I agree with documented findings and plan of care. Patient was seen and examined. Objective - Vital Signs Vital signs: Vital Signs Temp 97.9 F 01/27/24 08:00 Pulse 72 01/27/24 09:07 Resp 16 01/27/24 08:00 BP 158/79 01/27/24 08:00 Pulse Ox 99 01/27/24 08:00 FiO2 Intake & Output 01/26/24 01/27/24 01/27/24 18:59 06:59 18:59 Intake Total 1180 Output Total 200 150 Balance 980 -150 Weight 45 kg Intake: Oral 1180 Output: Urine 200 150 Other: Voiding Method External Catheter - Labs CBC & Chem 7: 01/26/24 07:19 01/27/24 07:37 Labs: Abnormal Lab Results - Last 24 Hours (Table) 01/26/24 01/26/24 01/26/24 Range/Units 11:58 17:17 20:20 Carbon Dioxide (22-30) mmol/L BUN (7-17) mg/dL Creatinine (0.52-1.04) mg/dL Glucose (74-99) mg/dL POC Glucose (mg/dL) 223 H 221 H 233 H (70-110) mg/dL 01/27/24 01/27/24 01/27/24 Range/Units 02:37 06:09 07:37 Carbon Dioxide 35 H (22-30) mmol/L BUN 32 H (7-17) mg/dL Creatinine 1.25 H (0.52-1.04) mg/dL Glucose 135 H (74-99) mg/dL POC Glucose (mg/dL) 153 H 131 H (70-110) mg/dL
--- NOTE | 2024-01-27 17:33 | P.PN ---
Subjective Progress Note Date: 01/27/24 (delayed charting seen at 0915) Patient is an 88-year-old female with known diastolic congestive heart failure, chronic kidney disease stage III, hypertension, diabetes, and GERD who presented to the emergency department due to shortness of breath. On arrival to the ER her vital signs were within normal limits. Initial laboratory analysis was remarkable for potassium of 2.9 and BNP of 1400. Chest x-ray demonstrated pulmonary vascular congestion. Patient was given Lasix 60 mg IV push x 1 and arrangements were made for admission for acute exacerbation of diastolic congestive heart failure. She was continued on Lasix 40 mg twice daily. Her home insulin was held due to low blood sugars. Cardiology was consulted. She continued to diuresis well. She did have labile blood sugars. Patient seen and examined at bedside. She states she is feeling better today than yesterday. Her breathing is 75% improved from admission. Denies any nausea or vomiting. Vital signs reviewed General: Nontoxic, no distress, appears at stated age Cardiovascular: S1S2 reg, no murmur Lungs: Course bs bilateral, no rhonchi, no rales, no accessory muscle use Abdominal: Soft, nontender to palpation, no guarding Ext: No gross muscle atrophy, no edema b/l lower extremities, no contractures Neuro: CN II-XI grossly intact, no focal neuro deficits Psych: Alert, oriented, appropriate affect Assessment/Plan: Acute exacerbation of diastolic congestive heart failure with ejection fraction 55 to 60%. Severe pulmonary hypertension with RVSP of 60, Moderate to severe mitral regurgitation, moderate to severe tricuspid regurgitation Acute hypoxic respiratory failure due to CHF Hypertension -Continue with Lasix 40 mg IV twice daily -Case discussed with cardiology and they would like 1 more day of IV Lasix. -Nifedipine 60 mg daily, Coreg 12.5 mg twice daily, hydralazine 50 mg twice d aily -Lipitor 40 mg daily -Aspirin 81 mg daily -Strict I's and O's, daily weights - patient requires a hospital bed to manage her CHF symptoms as they cannot be managed in a normal bed. Diabetes mellitus type 2 - Increase levemir to 12 units at night, novolog 4 units with lunch and dinner and SSI -Patient is on glargine 22 mg at night, lispro 4 mg with lunch and dinner, and sliding scale at home, with glyburide 5 mg in the morning - she follows with endocrinology. CKD stage IIIb, at baseline - at baseline - monitor Cr Hypomagnesemia, resolved Hypokalemia, resolved Imaging: CXR_ CHF (Appears improved form prior on my review) Data Review: Labs reviewed today include basic metabolic profile and blood sugar levels which show BUN 32 and creatinine 1.25. A.m. fasting glucose was 135. 2 AM blood glucose was 153. Magnesium normal at 1.8. DVT prophylaxis: Heparin Anticipated discharge date: in AM Anticipated discharge place: Home health This dictation was prepared using [employer] voice recognition software. Though every attempt is made to correct errors during dictation some may still exist. Objective - Vital Signs Vital signs: Vital Signs Temp 97.8 F 01/27/24 14:00 Pulse 68 01/27/24 14:00 Resp 16 01/27/24 14:00 BP 136/64 01/27/24 14:00 Pulse Ox 99 01/27/24 14:00 FiO2 Intake & Output 01/26/24 01/27/24 01/27/24 18:59 06:59 18:59 Intake Total 1180 598 Output Total 200 150 450 Balance 980 -150 148 Weight 45 kg Intake: Oral 1180 598 Output: Urine 200 150 450 Other: Voiding Method External Catheter External Catheter - Labs CBC & Chem 7: 01/26/24 07:19 01/27/24 07:37 Labs: Abnormal Lab Results - Last 24 Hours (Table) 01/26/24 01/27/24 01/27/24 Range/Units 20:20 02:37 06:09 Carbon Dioxide (22-30) mmol/L BUN (7-17) mg/dL Creatinine (0.52-1.04) mg/dL Glucose (74-99) mg/dL POC Glucose (mg/dL) 233 H 153 H 131 H (70-110) mg/dL 01/27/24 01/27/24 Range/Units 07:37 12:23 Carbon Dioxide 35 H (22-30) mmol/L BUN 32 H (7-17) mg/dL Creatinine 1.25 H (0.52-1.04) mg/dL Glucose 135 H (74-99) mg/dL POC Glucose (mg/dL) 367 H (70-110) mg/dL
[2024-01-27 17:35] LABS: Glucose,Whole Blood 231 mg/dL (70-110)
[2024-01-27] MEDS: INSULIN ASPART (NovoLOG) 100 UNIT/ML VIAL SQ SCH (18:44)
[2024-01-27 20:34] LABS: Glucose,Whole Blood 336 mg/dL (70-110)
[2024-01-27] MEDS: INSULIN DETEMIR (LEVEMIR) 100 UNIT/ML SYR SQ SCH (22:07)
[2024-01-28 02:25] LABS: Glucose,Whole Blood 125 mg/dL (70-110)
[2024-01-28 06:22] LABS: Glucose,Whole Blood 78 mg/dL (70-110)
--- NOTE | 2024-01-28 08:20 | P.PN ---
Subjective Progress Note Date: 01/28/24 History of present illness: This is an 88-year-old female with past medical history of hypertension, diabe ani, dyslipidemia, chronic diastolic heart failure who presented to the hospital with worsening shortness of breath, leg edema, and weight gain. Patient was treated with diuretics with some improvement of her symptoms. Upon initial consultation, patient did not have any significant respiratory distress but did have bilateral lower extremity edema. Echocardiogram in September of this year revealed normal LV systolic function, severe pulmonary hypertension, moderate to severe mitral and tricuspid regurgitation. Patient has been maintained on IV Lasix. Repeat blood work reveals WBC 9.7, hemoglobin 11.9. Patient states that she is feeling tired but her breathing has not improved. She thinks she can lay flat but she still feels shortness of breath in any position. She is utilizing oxygen which she has at home as needed only. She denies having any chest pain. 01/25 Patient is seen today in follow-up. She states she is feeling very good today. Breathing is much better. She is continues to have some expiratory wheezing. No lower extremity edema. Blood pressure 129/64, heart rate 71, pulse ox 96% on 4 L nasal cannula. 01/26 Patient states that her breathing is about the same from yesterday. She continues to have some expiratory wheezing. She has been maintained on IV Lasix 40 mg twice daily. Blood pressure 158/79, heart rate in the 70s. Repeat blood work reveals BUN 32 creatinine 1.25. Potassium 3.7. 01/27 Patient has been maintained on IV Lasix 40 mg every 12 and transition to oral this morning. Patient states that she is feeling really good this morning. She has no lower extremity edema breath sounds are diminished. Weight is down from admission. Blood pressure 138/65, heart rate 69, pulse ox 95% on 2 L nasal cannula. Physical examination: Gen: This is an 88-year-old female in no acute distress VS: reviewed HEENT: Head is atraumatic, normocephalic. Pupils equal, round. Sclerae is anicteric. LUNGS: Diminished breath sounds. No intercostal retractions. HEART: Regular rate and rhythm. Systolic murmur at the apex and at the left lower sternal border. EXTREMITIES: No pedal edema. No calf tenderness. NEUROLOGICAL: Patient is awake, alert and oriented x3. Assessment: Acute on chronic diastolic heart failure Severe pulmonary hypertension Valvular heart disease with moderate to severe mitral and tricuspid regurgitation Plan: Continue current cardiac medications Patient is cleared from cardiology for discharge May follow-up in the office in 1 to 2 weeks. Nurse practitioner note has been reviewed, I agree with documented findings and plan of care. Patient was seen and examined. Objective - Vital Signs Vital signs: Vital Signs Temp 98.0 F 01/28/24 02:11 Pulse 69 01/28/24 02:11 Resp 15 01/28/24 02:11 BP 138/65 01/28/24 02:11 Pulse Ox 95 01/28/24 02:11 FiO2 Intake & Output 01/27/24 01/28/24 01/28/24 18:59 06:59 18:59 Intake Total 958 Output Total 700 800 Balance 258 -800 Weight 64.7 kg Intake: Oral 958 Output: Urine 700 800 Other: Voiding Method External Catheter External Catheter # Voids 1 - Labs CBC & Chem 7: 01/26/24 07:19 01/27/24 07:37 Labs: Abnormal Lab Results - Last 24 Hours (Table) 01/27/24 01/27/24 01/27/24 Range/Units 07:37 12:23 17:34 Carbon Dioxide 35 H (22-30) mmol/L BUN 32 H (7-17) mg/dL Creatinine 1.25 H (0.52-1.04) mg/dL Glucose 135 H (74-99) mg/dL POC Glucose (mg/dL) 367 H 231 H (70-110) mg/dL 01/27/24 01/28/24 Range/Units 20:29 02:24 Carbon Dioxide (22-30) mmol/L BUN (7-17) mg/dL Creatinine (0.52-1.04) mg/dL Glucose (74-99) mg/dL POC Glucose (mg/dL) 336 H 125 H (70-110) mg/dL
[2024-01-28 08:38] VITALS: BP 137/65; RESP 16; TEMP 97.6
[2024-01-28 08:58] LABS: BUN/Creat Ratio 26.92 Ratio (12.00-20.00); Blood Urea Nitrogen 32.3 mg/dL (9.0-27.0); Glucose 67 mg/dL (70-110); Magnesium 1.9 mg/dL (1.5-2.4)
[2024-01-28 08:59] LABS: Calcium 9.5 mg/dL (8.7-10.3); Carbon Dioxide 33.6 mmol/L (21.6-31.8); Chloride 100 mmol/L (96-109); Potassium 3.5 mmol/L (3.5-5.5); Sodium 145 mmol/L (135-145)
--- NOTE | 2024-01-28 09:40 | P.DS ---
Providers Date of admission: 01/24/24 16:56 Expected date of discharge: 01/28/24 Attending physician: Louise Reynolds MD Consults: 01/23/24 16:35 Consult Physician Urgent Consulting Provider: [facility] Consult Reason/Comments: chf exacerbation Do you want consulting provider notified?: Yes Primary care physician: [facility] Course: 88 year old F with PMH of diastolic CHF, CKD, HTN, DM, GERD, RLS presents to the ED. She complains of progressively worsening shortness of breath. Breathing has been progressively getting worse over the past 3-4 days. Reports difficulty laying flat at night and worsening lower extremity swelling. She is not aware of any cardiac issues but reports compliance with her medication. She denies any dizziness or chest pain. Denies changes in urination or bowel habits. Has no other complaints. Does not follow a [facility]. Of note reports a right femoral fracture in July which was surgically repaired in July where she spent 3 weeks in rehab. Currently ambulates with the daughter but does not move around much due to right lower extremity weakness. She lives with her daughter. Most recent Echo 09/2023 shows EF 55-60%, severe pulmonary HTN, moderate LV thickness, mod-severe MR/TR. In the ED, she underwent extensive evaluation. BP 119/61, HR 71, T 97.1F, RR 14, 94% on 2L NC. Per Dr. Earl she did de-saturate into the low 80s with ambulation. CBC and CMP was done remarkable for RBC 3.76, MCV 95.5, K 2.9, BUN 28, Cr 1.05, alk phos 210, total protein 6.2, alb 3.2. Troponin 0.013. BNP 1400. CXR showed pulmonary vascular congestion. Patient was given Lasix 60 mg IV and admitted for CHF exacerbation. Diuresed with Lasix 40 mg IV BID. Cardiology consulted and following. Breathing improved. Transitioned to Lasix 40 mg PO BID. Cleared for discharge. 01/27 Patient was seen and examined. Breathing much better. LE swelling improved. Plans for home O2 eval. Hopeful discharge home today. General: non toxic, no distress, appears at stated age Derm: warm, dry Head: atraumatic, normocephalic, symmetric Eyes: EOMI, no lid lag, anicteric sclera Mouth: no lip lesion, mucus membranes moist Cardiovascular: S1S2 reg, diastolic murmur Lungs: Decreased BS bilateral, no rhonchi, no rales , no accessory muscle use Ext: no gross muscle atrophy, no edema, no contractures Neuro: no focal neuro deficits Psych: Alert, oriented, appropriate affect Discharge Diagnosis: Acute on chronic diastolic CHF exacerbation Acute hypoxic respiratory failure Chronic kidney disease Hypertension Diabetes mellitus GERD RLS Resolved: Hypokalemia This complex discharge took 35 minutes to complete. Patient Condition at Discharge: Stable Plan - Discharge Summary Discharge Rx Participant: No New Discharge Prescriptions: Continue Ergocalciferol (Vitamin D2) [Drisdol (50,000 Iu)] 1,250 mcg PO APPIAH rOPINIRole HCL [Requip] 4 mg PO BID Albuterol Sulfate [Albuterol Sulfate Hfa] 2 puff INHALATION RT-Q6H Insulin Lispro [Insulin Lispro Kwikpen U-100] See Protocol SQ AC-TID Furosemide [Lasix] 40 mg PO BID@0800,1600 hydrALAZINE HCL [Apresoline] 50 mg PO BID #60 tab carvediloL [Coreg*] 12.5 mg PO BID-W/MEALS #60 tab Potassium Chloride ER [K-Dur 20] 40 meq PO BID tab Omeprazole 20 mg PO DAILY Atorvastatin [Lipitor] 20 mg PO DAILY Collagenase [Santyl Ointment] 1 applic TOPICAL DAILY each DULoxetine HCL [Cymbalta] 60 mg PO BID Ipratropium-Albuterol Nebulize [Duoneb 0.5 mg-3 mg/3 ml Soln] 3 ml INHALATION RT-BID NIFEdipine XL [Procardia XL] 60 mg PO DAILY Aspirin EC [Ecotrin Low Dose] 81 mg PO DAILY Insulin Lispro [Insulin Lispro Kwikpen U-100] 4 unit SQ AC-TID Insulin Glargine-Yfgn 22 units SQ HS glipiZIDE [Glucotrol] 5 mg PO AC-BRKFST Discharge Medication List Ergocalciferol (Vitamin D2) [Drisdol (50,000 Iu)] 1,250 mcg PO APPIAH 10/08/23 [History] Potassium Chloride ER [K-Dur 20] 40 meq PO BID tab 10/19/23 [Rx] Albuterol Sulfate [Albuterol Sulfate Hfa] 2 puff INHALATION RT-Q6H 11/02/23 [History] Atorvastatin [Lipitor] 20 mg PO DAILY 11/02/23 [History] Omeprazole 20 mg PO DAILY 11/02/23 [History] rOPINIRole HCL [Requip] 4 mg PO BID 11/02/23 [History] Collagenase [Santyl Ointment] 1 applic TOPICAL DAILY each 11/06/23 [Rx] DULoxetine HCL [Cymbalta] 60 mg PO BID 11/26/23 [History] Furosemide [Lasix] 40 mg PO BID@0800,1600 11/26/23 [History] Insulin Lispro [Insulin Lispro Kwikpen U-100] See Protocol SQ AC-TID 11/26/23 [History] Ipratropium-Albuterol Nebulize [Duoneb 0.5 mg-3 mg/3 ml Soln] 3 ml INHALATION RT-BID 11/26/23 [History] Aspirin EC [Ecotrin Low Dose] 81 mg PO DAILY 12/14/23 [History] NIFEdipine XL [Procardia XL] 60 mg PO DAILY 12/14/23 [History] carvediloL [Coreg*] 12.5 mg PO BID-W/MEALS #60 tab 12/15/23 [Rx] hydrALAZINE HCL [Apresoline] 50 mg PO BID #60 tab 12/15/23 [Rx] Insulin Glargine-Yfgn 22 units SQ HS 01/23/24 [History] Insulin Lispro [Insulin Lispro Kwikpen U-100] 4 unit SQ AC-TID 01/23/24 [History] glipiZIDE [Glucotrol] 5 mg PO AC-BRKFST 01/27/24 [History] Follow up Appointment(s)/Referral(s): [facility] [Provider Group] - 1 Week Brianne Herrera MD [Primary Care Provider] - 1-2 days [facility] [NON-STAFF] - As Needed (Hospital bed) [facility] [[facility]] - As Needed Activity/Diet/Wound Care/Special Instructions: Diet: Cardiac, Low salt, 1.5L fluid restriction Discharge Disposition: HOME SELF-CARE
[2024-01-28] MEDS: FUROSEMIDE 40 MG TAB PO SCH (10:28)
[2024-01-28 12:19] LABS: Glucose,Whole Blood 172 mg/dL (70-110)
[2024-01-28 13:50] VITALS: PULSE 95
== END 2024-01-28 13:20 | disposition home health service (06) | DRG 291 ==
LOC: EC 14:49 → 6NMEDSUR 16:35 → OBSVTOIN 01-24 16:56
PROVIDERS: ADMIT Family Medicine; ATTEND Family Medicine
DX: I13.0 Hypertensive heart and chronic kidney disease with heart failure and stage 1 through stage 4 chronic kidney disease, or unspecified chronic kidney disease (principal); I50.33 Acute on chronic diastolic (congestive) heart failure; J96.01 Acute respiratory failure with hypoxia; E11.649 Type 2 diabetes mellitus with hypoglycemia without coma; E11.22 Type 2 diabetes mellitus with diabetic chronic kidney disease; N18.32 Chronic kidney disease, stage 3b; E11.65 Type 2 diabetes mellitus with hyperglycemia; I27.20 Pulmonary hypertension, unspecified; J44.9 Chronic obstructive pulmonary disease, unspecified; G25.81 Restless legs syndrome; Z79.4 Long term (current) use of insulin; I08.1 Rheumatic disorders of both mitral and tricuspid valves; E78.5 Hyperlipidemia, unspecified; E83.42 Hypomagnesemia; E87.6 Hypokalemia; I44.7 Left bundle-branch block, unspecified; K21.9 Gastro-esophageal reflux disease without esophagitis; Z79.82 Long term (current) use of aspirin; Z79.84 Long term (current) use of oral hypoglycemic drugs; Z79.899 Other long term (current) drug therapy; Z86.19 Personal history of other infectious and parasitic diseases
CPT/HCPCS: 36415; 71045; 71046; 80048; 80053; 83036; 83605; 83735; 83880; 84484; 85025; 85027; 85610; 85730; 93005; 94640; 94760; 96374; 99285

== ENCOUNTER 2024-02-05 15:45 | Inpatient (IN) | payer MEDICARE, BC ==
[2024-02-05] MEDS: IPRATROPIUM-ALBUTEROL 3 ML NEB INHALATION STA (16:55)
--- NOTE | 2024-02-05 17:01 | ED ---
General Adult HPI - General Chief complaint: Shortness of Breath Stated complaint: EDUARDA Time Seen by Provider: 02/05/24 16:25 Source: patient, EMS, RN notes reviewed, old records reviewed Mode of arrival: EMS Limitations: no limitations - History of Present Illness Initial comments: Patient is an 88-year-old female who presents emergency department complaining of shortness of breath. Has a history of CHF, diabetes, hypertension. States that symptoms have been ongoing for 1 to 2 weeks however acutely got worse over the last 1 to 2 days. Is typically on 3 L nasal cannula and was hypoxic to 88% for EMS. Endorses a nonproductive cough. Denies any significant orthopnea. Endorses symmetrical bilateral lower extremity pitting edema. Denies any chest pain. Denies any abdominal pain, nausea, vomiting. Denies any other acute complaints at this time. Patient presents for further evaluation. I evaluated patient when she was placed in room. - Related Data Home Medications Medication Instructions Recorded Confirmed Ergocalciferol (Vitamin D2) 1,250 mcg PO APPIAH 10/08/23 02/05/24 [Drisdol (50,000 Iu)] Albuterol Sulfate [Albuterol 2 puff INHALATION RT-Q6H 11/02/23 02/05/24 Sulfate Hfa] Atorvastatin [Lipitor] 20 mg PO DAILY 11/02/23 02/05/24 Omeprazole 20 mg PO DAILY 11/02/23 02/05/24 rOPINIRole HCL [Requip] 4 mg PO BID 11/02/23 02/05/24 DULoxetine HCL [Cymbalta] 60 mg PO BID 11/26/23 02/05/24 Furosemide [Lasix] 40 mg PO BID@0800,1600 11/26/23 02/05/24 Insulin Lispro [Insulin Lispro See Protocol SQ AC-TID 11/26/23 02/05/24 Kwikpen U-100] Ipratropium-Albuterol Nebulize 3 ml INHALATION RT-BID 11/26/23 02/05/24 [Duoneb 0.5 mg-3 mg/3 ml Soln] Aspirin EC [Ecotrin Low Dose] 81 mg PO DAILY 12/14/23 02/05/24 NIFEdipine XL [Procardia XL] 60 mg PO DAILY 12/14/23 02/05/24 Insulin Glargine-Yfgn 22 units SQ HS 01/23/24 02/05/24 Insulin Lispro [Insulin Lispro 4 unit SQ AC-TID 01/23/24 02/05/24 Kwikpen U-100] glipiZIDE [Glucotrol] 5 mg PO AC-BRKFST 01/27/24 02/05/24 Previous Rx's Medication Instructions Recorded Potassium Chloride ER [K-Dur 20] 40 meq PO BID tab 10/19/23 Collagenase [Santyl Ointment] 1 applic TOPICAL DAILY each 11/06/23 carvediloL [Coreg*] 12.5 mg PO BID-W/MEALS #60 tab 12/15/23 hydrALAZINE HCL [Apresoline] 50 mg PO BID #60 tab 12/15/23 Allergies Allergy/AdvReac Type Severity Reaction Status Date / Time No Known Allergies Allergy Verified 02/05/24 19:13 Review of Systems ROS Statement: Those systems with pertinent positive or pertinent negative responses have been documented in the HPI. Review of Systems: CONST: Denies fever EYES: Denies blurry vision ENT: Denies nasal congestion C/V: Denies Chest pain RESP: Endorses shortness of breath GI: Denies abdominal pain : Denies dysuria SKIN: Denies rash. MSK: Denies joint pain. NEURO: Denies headache ROS Other: All systems not noted in ROS Statement are negative. Past Medical History Past Medical History: Heart Failure, Diabetes Mellitus, Hypertension, Pneumonia Additional Past Medical History / Comment(s): new CHF 09/2023, "kidney , home oxygen@3L/min History of Any Multi-Drug Resistant Organisms: ESBL Date of last positivie culture/infection: 11/26/23 MDRO Source:: Blood Past Surgical History: Hysterectomy Additional Past Surgical History / Comment(s): R hip, cataract sx Past Anesthesia/Blood Transfusion Reactions: No Reported Reaction Past Psychological History: No Psychological Hx Reported Smoking Status: Never smoker Past Alcohol Use History: None Reported Past Drug Use History: None Reported General Exam - General Exam Comments Initial Comments: General: Appears in no acute distress. HEAD: Normal with no signs of head trauma. EYES: PERRLA, EOMI, conjunctiva normal, no discharge. ENT: Hearing grossly intact, normal oropharynx. RESPIRATORY: Coarse breath sounds bilaterally. Somewhat normoxic on her baseline 3 L nasal cannula oxygen. C/V: Regular rate and rhythm. S1 and S2 auscultated, trickle bilateral lower extremity pitting edema, peripheral pulses 2+ and intact throughout ABD: Abd is soft, nontender, nondistended EXT: Normal range of motion, no obvious deformity SKIN: No rashes or lesions observed on exposed skin. NEURO: Alert and oriented x 4. Limitations: no limitations Course Vital Signs 02/05/24 02/05/24 02/05/24 15:50 16:15 16:55 Temperature 97.5 F L Pulse Rate 73 76 Respiratory 22 20 Rate Blood Pressure 198/81 O2 Sat by Pulse 92 L Oximetry 02/05/24 02/05/24 02/05/24 17:13 17:45 17:48 Temperature Pulse Rate 88 75 72 Respiratory 20 20 Rate Blood Pressure 142/73 O2 Sat by Pulse 93 L 93 L Oximetry 02/05/24 02/05/24 19:00 22:07 Temperature Pulse Rate 83 74 Respiratory 20 20 Rate Blood Pressure 142/73 163/83 O2 Sat by Pulse 94 L 94 L Oximetry Medical Decision Making - Medical Decision Making Was pt. sent in by a medical professional or institution (, PA, DATABASE MANAGEMENT SPECIALIST, urgent care, hospital, or fdc...) When possible be specific @ -No Did you speak to anyone other than the patient for history (EMS, parent, family, police, friend...)? What history was obtained from this source @ -No Did you review nursing and triage notes (agree or disagree)? Why? @ -I reviewed and agree with nursing and triage notes Were old charts reviewed (outside hosp., previous admission, EMS record, old EKG, old radiological studies, urgent care reports/EKG's, fdc records)? Report findings @ -Old charts from recent admission on January 24, 2024 reviewed including EKG. EKG showed no signs of acute ischemia at that time. Appears to be in CHF exacerbation at that time. Differential Diagnosis (chest pain, altered mental status, abdominal pain women, abdominal pain men, vaginal bleeding, weakness, fever, dyspnea, syncope, headache, dizziness, GI bleed, back pain, seizure, CVA, palpatations, mental health, musculoskeletal)? @ -Differential Dyspnea: Coronary syndrome, arrhythmia, tamponade, asthma, COPD, pulmonary embolism, pneumonia, pneumothorax, pulmonary effusion, anaphylaxis, diabetic ketoacidosis, flailed chest, pulmonary contusion, diaphragmatic rupture, anemia, neuromuscular, this is not meant to be an all-inclusive list. EKG interpreted by me (3pts min.). @ -As above X-rays interpreted by me (1pt min.). @ -Chest x-ray remarkable for CHF findings. CT interpreted by me (1pt min.). @ -None done U/S interpreted by me (1pt. min.). @ -None done What testing was considered but not performed or refused? (CT, X-rays, U/S, labs)? Why? @ -None What meds were considered but not given or refused? Why? @ -None Did you discuss the management of the patient with other professionals (professionals i.e. DrJunie, PA, DATABASE MANAGEMENT SPECIALIST, lab, RT, psych nurse, psychiatric social worker, mud grinder, teacher, mortgage loan officer, pillowcase turner)? Give summary @ -Discussed with Dr. Duarte who accepted the admission. Was smoking cessation discussed for >3mins.? @ -No Was critical care preformed (if so, how long)? @ -No Were there social determinants of health that impacted care today? How? (Homelessness, low income, unemployed, alcoholism, drug addiction, transportation, low edu. Level, literacy, decrease access to med. care, penitentiary, rehab)? @ -No Was there de-escalation of care discussed even if they declined (Discuss DNR or withdrawal of care, Hospice)? DNR status @ -No What co-morbidities impacted this encounter? (DM, HTN, Smoking, COPD, CAD, Cancer, CVA, ARF, Chemo, Hep., AIDS, mental health diagnosis, sleep apnea, morbi d obesity)? @ -CHF Was patient admitted / discharged? Hospital course, mention meds given and route , prescriptions, significant lab abnormalities, going to OR and other pertinent info. @ -Based on the patient's presentation and physical exam, patient presents emergency department for what appears to be CHF exacerbation. Was hypoxic on her baseline 3 L nasal cannula at home. Currently normoxic for the patient. Obtain cardiopulmonary workup. Patient was in agreement this plan. Clinically she has lower extremity edema, possible orthopnea, nonproductive cough, shortness of breath that is exertional. EKG shows no signs of acute ischemia. Chest x-ray remarkable for pulmonary vascular congestion. Laboratory studies remarkable for chronically elevated BUN and creatinine. Troponin is undetectable. BNP is elevated but not substantially. Improved from previous evaluation. Viral swabs negative. At this time I did discuss with patient as well as family. Patient clinically needs for CHF and we will start the patient on IV Lasix. Patient was in agreement this plan. She is more hypoxic than normal as well, requiring 3 to 4 L of her normal 2 L. Therefore she will be admitted. Cardiology consulted. They were in agreement this plan. I spoke with the admitting team, [facility] Dr. Duarte who accepted the admission. Undiagnosed new problem with uncertain prognosis? @ -No Drug Therapy requiring intensive monitoring for toxicity (Heparin, Nitro, Insulin, Cardizem)? @ -No Were any procedures done? @ -No Diagnosis/symptom? @ -Hypoxia, CHF exacerbation Acute, or Chronic, or Acute on Chronic? @ -Acute Uncomplicated (without systemic symptoms) or Complicated (systemic symptoms)? @ -Complicated Side effects of treatment? @ -None Exacerbation, Progression, or Severe Exacerbation] @ -No Poses a threat to life or bodily function? @ -Yes - Lab Data Result diagrams: 02/05/24 17:25 02/05/24 17:35 Lab Results 02/05/24 02/05/24 02/05/24 Range/Units 17:25 17:25 17:35 WBC 8.6 (3.8-10.6) k/uL RBC 3.64 L (3.80-5.40) m/uL Hgb 10.8 L (11.4-16.0) gm/dL Hct 34.8 (34.0-46.0) % MCV 95.5 (80.0-100.0) fL MCH 29.6 (25.0-35.0) pg MCHC 31.0 (31.0-37.0) g/dL RDW 15.6 H (11.5-15.5) % Plt Count 162 (150-450) k/uL MPV 9.9 Neutrophils % 74 % Lymphocytes % 12 % Monocytes % 8 % Eosinophils % 4 % Basophils % 1 % Neutrophils # 6.3 (1.3-7.7) k/uL Lymphocytes # 1.0 (1.0-4.8) k/uL Monocytes # 0.7 (0-1.0) k/uL Eosinophils # 0.4 (0-0.7) k/uL Basophils # 0.1 (0-0.2) k/uL Hypochromasia Slight PT 10.7 (10.0-12.5) sec INR 1.0 (<1.2) APTT 21.5 L (22.0-30.0) sec Sodium (137-145) mmol/L Potassium (3.5-5.1) mmol/L Chloride (98-107) mmol/L Carbon Dioxide (22-30) mmol/L Anion Gap mmol/L BUN (7-17) mg/dL Creatinine (0.52-1.04) mg/dL Est GFR (CKD-EPI)AfAm (>60 ml/min/1.73 sqM) Est GFR (CKD-EPI)NonAf (>60 ml/min/1.73 sqM) Glucose (74-99) mg/dL Plasma Lactic Acid Luis M 0.8 (0.7-2.0) mmol/L Calcium (8.4-10.2) mg/dL Magnesium (1.6-2.3) mg/dL Total Bilirubin (0.2-1.3) mg/dL AST (14-36) U/L ALT (4-34) U/L Alkaline Phosphatase (38-126) U/L Troponin I (0.000-0.034) ng/mL NT-Pro-B Natriuret Pep pg/mL Total Protein (6.3-8.2) g/dL Albumin (3.5-5.0) g/dL Influenza Type A (PCR) (Not Detectd) Influenza Type B (PCR) (Not Detectd) RSV (PCR) (Not Detectd) SARS-CoV-2 (PCR) (Not Detectd) 02/05/24 02/05/24 02/05/24 Range/Units 17:35 17:35 17:45 WBC (3.8-10.6) k/uL RBC (3.80-5.40) m/uL Hgb (11.4-16.0) gm/dL Hct (34.0-46.0) % MCV (80.0-100.0) fL MCH (25.0-35.0) pg MCHC (31.0-37.0) g/dL RDW (11.5-15.5) % Plt Count (150-450) k/uL MPV Neutrophils % % Lymphocytes % % Monocytes % % Eosinophils % % Basophils % % Neutrophils # (1.3-7.7) k/uL Lymphocytes # (1.0-4.8) k/uL Monocytes # (0-1.0) k/uL Eosinophils # (0-0.7) k/uL Basophils # (0-0.2) k/uL Hypochromasia PT (10.0-12.5) sec INR (<1.2) APTT (22.0-30.0) sec Sodium 142 (137-145) mmol/L Potassium 3.7 (3.5-5.1) mmol/L Chloride 106 (98-107) mmol/L Carbon Dioxide 31 H (22-30) mmol/L Anion Gap 5 mmol/L BUN 38 H (7-17) mg/dL Creatinine 1.25 H (0.52-1.04) mg/dL Est GFR (CKD-EPI)AfAm 45 (>60 ml/min/1.73 sqM) Est GFR (CKD-EPI)NonAf 39 (>60 ml/min/1.73 sqM) Glucose 115 H (74-99) mg/dL Plasma Lactic Acid Luis M (0.7-2.0) mmol/L Calcium 9.0 (8.4-10.2) mg/dL Magnesium 1.9 (1.6-2.3) mg/dL Total Bilirubin 0.7 (0.2-1.3) mg/dL AST 24 (14-36) U/L ALT 16 (4-34) U/L Alkaline Phosphatase 154 H (38-126) U/L Troponin I <0.012 (0.000-0.034) ng/mL NT-Pro-B Natriuret Pep 1020 pg/mL Total Protein 7.0 (6.3-8.2) g/dL Albumin 3.6 (3.5-5.0) g/dL Influenza Type A (PCR) Not Detected (Not Detectd) Influenza Type B (PCR) Not Detected (Not Detectd) RSV (PCR) Not Detected (Not Detectd) SARS-CoV-2 (PCR) Not Detected (Not Detectd) - EKG Data -: EKG Interpreted by Me EKG Comments: 12-lead Electrocardiogram Interpretation Note EKG was reviewed and interpreted by myself. 12-lead ECG performed at 1734 is interpreted by me as revealing normal sinus rhythm at a rate of 72 beats per minute. Left axis deviation. OH interval is 174 ms, QRS durations 126 ms, QTc is 445 ms.. There were no ST or T wave abnormalities to suggest myocardial ischemia or injury. R wave progression across the precordium was satisfactory. By my interpretation this EKG is non-diagnostic for acute ischemia. Critical Care Time Critical Care Time: Yes Total Critical Care Time: 32 Disposition Clinical Impression: CHF (congestive heart failure), Hypoxia Disposition: ADMITTED IP TO THIS HOSP Condition: Stable Time of Disposition: 19:00
[2024-02-05 17:58] LABS: Basophils # (A) 0.1 k/uL (0-0.2); Basophils % (A) 1 %; Eosinophils # (A) 0.4 k/uL (0-0.7); Eosinophils % (A) 4 %; HCT 34.8 % (34.0-46.0); HGB 10.8 gm/dL (11.4-16.0); Hypochromasia Slight; Lymphocytes % (A) 12 %; MCH 29.6 pg (25.0-35.0); MCV 95.5 fL (80.0-100.0); Mean Platelet Volume 9.9; Monocytes # (A) 0.7 k/uL (0-1.0); Monocytes % (A) 8 %; Neutrophils # (A) 6.3 k/uL (1.3-7.7); Neutrophils % (A) 74 %; Platelet Count 162 k/uL (150-450); RBC 3.64 m/uL (3.80-5.40); RDW 15.6 % (11.5-15.5); WBC 8.6 k/uL (3.8-10.6)
[2024-02-05 18:03] LABS: Prothrombin Time 10.7 sec (10.0-12.5)
[2024-02-05 18:04] LABS: ALT 16 U/L (4-34); AST 24 U/L (14-36); African American GFR (CKD) 45 (>60 ml/min/1.73 sqM); Albumin 3.6 g/dL (3.5-5.0); Alkaline Phosphatase 154 U/L (38-126); Anion Gap 5 mmol/L; Blood Urea Nitrogen 38 mg/dL (7-17); Carbon Dioxide 31 mmol/L (22-30); Chloride 106 mmol/L (98-107); Glucose 115 mg/dL (74-99); Magnesium 1.9 mg/dL (1.6-2.3); Non-African American GFR(CKD) 39 (>60 ml/min/1.73 sqM); Potassium 3.7 mmol/L (3.5-5.1); Sodium 142 mmol/L (137-145); Total Bilirubin 0.7 mg/dL (0.2-1.3)
[2024-02-05 18:05] LABS: Partial Thromboplastin Time 21.5 sec (22.0-30.0)
[2024-02-05 18:11] LABS: NT-Pro-B-Type Natriuretic Pept 1020 pg/mL
--- NOTE | 2024-02-05 18:24 | XR ---
EXAMINATION TYPE: XR chest 2V DATE OF EXAM: 02/05/2024 COMPARISON: 01/27/2024 HISTORY: 88 year-old female shortness of breath, difficulty breathing TECHNIQUE: AP and lateral views FINDINGS: Heart mildly enlarged. Diffuse interstitial and confluent airspace opacities. Small bilateral pleural effusions. IMPRESSION: CHF with bilateral pulmonary edema. Small bilateral pleural effusions.
[2024-02-05] MEDS ORDERED: NALOXONE 0.4 MG/ML 1 ML VIAL IV PRN (19:13)
[2024-02-05] MEDS: FUROSEMIDE 10 MG/ML 4 ML VIAL IV SCH (20:31)
[2024-02-05] MEDS: FUROSEMIDE 10 MG/ML 4 ML VIAL IV STA (20:38)
[2024-02-05] MEDS: ASPIRIN 81 MG PO STA (20:38)
[2024-02-05] MEDS: HEPARIN SODIUM,PORCINE 5,000 UNIT/ML 1 ML VIAL SQ SCH (20:59)
[2024-02-05 22:13] LABS: Appearance,Urine Clear (Clear); Bacteria,Urine Many /hpf; Bilirubin,Urine Negative (Negative); Blood,Urine Trace (Negative); Color,Urine Colorless; Glucose,Urine (UA) Negative (Negative); Ketones,Urine Negative (Negative); Leukocyte Esterase,Urine Trace (Negative); Nitrite,Urine Negative (Negative); Protein,Urine Negative (Negative); RBC,Urine 7 /hpf (0-5); Specific Gravity,Urine 1.006 (1.001-1.035); Urobilinogen,Urine <2.0 mg/dL (<2.0); WBC,Urine 5 /hpf (0-5)
--- NOTE | 2024-02-06 02:23 | P.HPIM ---
History of Present Illness H&P Date: 02/05/24 Patient is a 88-year-old female with a PMH of diastolic CHF, chronic hypoxic respiratory failure on 2 L nasal cannula continuously at home, CKD stage IIIb, severe mitral regurgitation, moderate to severe tricuspid regurgitation, GERD, hypertension, type II DM, who presents to the emergency room with complaints of shortness of breath and lower extremity edema. Of note, the patient was recently discharged from the hospital after a 6-day hospitalization for CHF exacerbation. The patient was discharged home on oral Lasix 40 mg twice daily. She reports compliance with the medication but does report drinking more fluids in total than advised. She reports that her shortness of breath gradually worsened over the past 2 to 3 days along with the lower extremity edema. She denied chest discomfort, fever, chills, cough, abdominal pain, lower extremity pain, or diarrhea. In the emergency room, chest x-ray was consistent with CHF with EKG showing sinus rhythm at 72 bpm with LVH and left axis deviation as reviewed by me. Laboratory evaluation revealed a proBNP of 1020, troponin less than 0.012, BUN 38, creatinine 1.25 (at baseline), hemoglobin 10.8 with respiratory viral panel negative. SpO2 in the emergency room was 92% on 3 L nasal cannula oxygen ED documentation reviewed and case discussed with ED provider. Review of systems: Pertinent positives and negatives as discussed in HPI, a complete review of systems was performed and all other systems are negative. Physical examination: Vital signs reviewed General: non toxic, no distress, appears at stated age, normal weight Derm: Left song 2 cm ulcer without surrounding erythema with overlying dressing, warm Head: atraumatic, normocephalic, symmetric Eyes: EOMI, no lid lag, anicteric sclera, pupils equal round reactive to light ENT: Nose and ears atraumatic Neck: No cervical lymphadenopathy, trachea midline, supple Mouth: no lip lesion, mucus membranes moist Cardiovascular: S1S2 reg, grade 3 systolic murmur appreciated, positive dorsalis pedis pulse bilateral, 1+ bilateral lower extremity pitting edema Lungs: Bilateral rales to mid lung noted without wheezing or rhonchi, no accessory muscle use Abdominal: soft, nontender to palpation, no guarding Ext: muscle strength 4 out of 5 in all 4 extremities grossly, no gross muscle atrophy, no contractures, Neuro: CN II-XI grossly intact, no gross focal neuro deficits Psych: Alert, oriented, appropriate affect Assessment: Acute diastolic CHF exacerbation Acute on chronic hypoxic respiratory failure Chronic conditions: CKD stage IIIb, type II DM, hypertension, GERD Imaging: In the emergency room, chest x-ray was consistent with CHF with EKG showing sinus rhythm at 72 bpm with LVH and left axis deviation as reviewed by me. Data Review: Laboratory evaluation revealed a proBNP of 1020, troponin less than 0.012, BUN 38, creatinine 1.25 (at baseline), hemoglobin 10.8 with respiratory viral panel negative. SpO2 in the emergency room was 92% on 3 L nasal cannula oxygen Plan: Continue with Lasix 40 mg IV every 12 hourly Cardiology consulted Cardiac monitoring Intake and output Daily weights Fluid restriction Dietary consult Monitor electrolytes daily Supplemental oxygen Resume home medications Insulin sliding scale and blood glucose monitoring DVT prophylaxis: Heparin subcu The patient is admitted with an anticipated greater than than 2 midnight stay for evaluation of acute CHF CODE STATUS: Full Code Discussed with: Patient Anticipated discharge place: Home Past Medical History Past Medical History: Heart Failure, Diabetes Mellitus, Hypertension, Pneumonia Additional Past Medical History / Comment(s): new CHF 09/2023, "kidney , home oxygen@3L/min History of Any Multi-Drug Resistant Organisms: ESBL Date of last positivie culture/infection: 11/26/23 MDRO Source:: Blood Past Surgical History: Hysterectomy Additional Past Surgical History / Comment(s): R hip, cataract sx Past Anesthesia/Blood Transfusion Reactions: No Reported Reaction Past Psychological History: No Psychological Hx Reported Smoking Status: Never smoker Past Alcohol Use History: None Reported Past Drug Use History: None Reported - Past Family History Mother Family Medical History: Hypertension Medications and Allergies Home Medications Medication Instructions Recorded Confirmed Type Ergocalciferol (Vitamin D2) 1,250 mcg PO APPIAH 10/08/23 02/05/24 History [Drisdol (50,000 Iu)] Potassium Chloride ER [K-Dur 20] 40 meq PO BID tab 10/19/23 02/05/24 Rx Albuterol Sulfate [Albuterol 2 puff INHALATION RT-Q6H 11/02/23 02/05/24 History Sulfate Hfa] Atorvastatin [Lipitor] 20 mg PO DAILY 11/02/23 02/05/24 History Omeprazole 20 mg PO DAILY 11/02/23 02/05/24 History rOPINIRole HCL [Requip] 4 mg PO BID 11/02/23 02/05/24 History Collagenase [Santyl Ointment] 1 applic TOPICAL DAILY each 11/06/23 02/05/24 Rx DULoxetine HCL [Cymbalta] 60 mg PO BID 11/26/23 02/05/24 History Furosemide [Lasix] 40 mg PO BID@0800,1600 11/26/23 02/05/24 History Insulin Lispro [Insulin Lispro See Protocol SQ AC-TID 11/26/23 02/05/24 History Kwikpen U-100] Ipratropium-Albuterol Nebulize 3 ml INHALATION RT-BID 11/26/23 02/05/24 History [Duoneb 0.5 mg-3 mg/3 ml Soln] Aspirin EC [Ecotrin Low Dose] 81 mg PO DAILY 12/14/23 02/05/24 History NIFEdipine XL [Procardia XL] 60 mg PO DAILY 12/14/23 02/05/24 History carvediloL [Coreg*] 12.5 mg PO BID-W/MEALS #60 tab 12/15/23 02/05/24 Rx hydrALAZINE HCL [Apresoline] 50 mg PO BID #60 tab 12/15/23 02/05/24 Rx Insulin Glargine-Yfgn 22 units SQ HS 01/23/24 02/05/24 History Insulin Lispro [Insulin Lispro 4 unit SQ AC-TID 01/23/24 02/05/24 History Kwikpen U-100] glipiZIDE [Glucotrol] 5 mg PO AC-BRKFST 01/27/24 02/05/24 History Allergies Allergy/AdvReac Type Severity Reaction Status Date / Time No Known Allergies Allergy Verified 02/05/24 19:13 Physical Exam Vitals: Vital Signs Temp Pulse Resp BP Pulse Ox 02/05/24 22:07 74 20 163/83 94 L 02/05/24 19:00 83 20 142/73 94 L 02/05/24 17:48 72 20 142/73 93 L 02/05/24 17:45 75 20 93 L 02/05/24 17:13 88 02/05/24 16:55 76 02/05/24 16:15 20 02/05/24 15:50 97.5 F L 73 22 198/81 92 L Intake and Output 02/05/24 02/05/2402/05/24 14:59 22:59 06:59 Other: Weight 61.235 kg Results CBC & Chem 7: 02/06/24 02:22 02/06/24 02:22 Labs: Abnormal Lab Results - Last 24 Hours (Table) 02/05/24 02/05/24 02/05/24 Range/Units 17:25 17:25 17:35 RBC 3.64 L (3.80-5.40) m/uL Hgb 10.8 L (11.4-16.0) gm/dL RDW 15.6 H (11.5-15.5) % APTT 21.5 L (22.0-30.0) sec Carbon Dioxide 31 H (22-30) mmol/L BUN 38 H (7-17) mg/dL Creatinine 1.25 H (0.52-1.04) mg/dL Glucose 115 H (74-99) mg/dL Alkaline Phosphatase 154 H (38-126) U/L Urine Blood (Negative) Ur Leukocyte Esterase (Negative) Urine RBC (0-5) /hpf Urine Bacteria (None) /hpf 02/05/24 Range/Units 21:49 RBC (3.80-5.40) m/uL Hgb (11.4-16.0) gm/dL RDW (11.5-15.5) % APTT (22.0-30.0) sec Carbon Dioxide (22-30) mmol/L BUN (7-17) mg/dL Creatinine (0.52-1.04) mg/dL Glucose (74-99) mg/dL Alkaline Phosphatase (38-126) U/L Urine Blood Trace H (Negative) Ur Leukocyte Esterase Trace H (Negative) Urine RBC 7 H (0-5) /hpf Urine Bacteria Many H (None) /hpf
[2024-02-06 02:35] LABS: Basophils # (A) 0.1 k/uL (0-0.2); Basophils % (A) 1 %; Eosinophils # (A) 0.5 k/uL (0-0.7); Eosinophils % (A) 5 %; HCT 35.4 % (34.0-46.0); HGB 10.8 gm/dL (11.4-16.0); Hypochromasia Slight; Lymphocytes # (A) 0.9 k/uL (1.0-4.8); Lymphocytes % (A) 10 %; MCH 29.6 pg (25.0-35.0); MCHC 30.7 g/dL (31.0-37.0); MCV 96.6 fL (80.0-100.0); Mean Platelet Volume 9.9; Monocytes # (A) 0.5 k/uL (0-1.0); Monocytes % (A) 6 %; Neutrophils % (A) 77 %; Platelet Count 189 k/uL (150-450); RBC 3.66 m/uL (3.80-5.40); RDW 15.6 % (11.5-15.5); WBC 9.1 k/uL (3.8-10.6)
[2024-02-06 03:13] LABS: African American GFR (CKD) 46 (>60 ml/min/1.73 sqM); Anion Gap 5 mmol/L; Blood Urea Nitrogen 36 mg/dL (7-17); Carbon Dioxide 32 mmol/L (22-30); Chloride 105 mmol/L (98-107); Glucose 150 mg/dL (74-99); Non-African American GFR(CKD) 40 (>60 ml/min/1.73 sqM); Potassium 3.3 mmol/L (3.5-5.1); Sodium 142 mmol/L (137-145)
[2024-02-06 07:18] LABS: Glucose,Whole Blood 205 mg/dL (70-110)
[2024-02-06 08:18] LABS: African American GFR (CKD) 45 (>60 ml/min/1.73 sqM); Anion Gap 8 mmol/L; Blood Urea Nitrogen 33 mg/dL (7-17); Calcium 9.1 mg/dL (8.4-10.2); Carbon Dioxide 32 mmol/L (22-30); Chloride 104 mmol/L (98-107); Glucose 193 mg/dL (74-99); Magnesium 1.8 mg/dL (1.6-2.3); Non-African American GFR(CKD) 39 (>60 ml/min/1.73 sqM); Potassium 3.4 mmol/L (3.5-5.1); Sodium 144 mmol/L (137-145)
[2024-02-06] MEDS: INSULIN ASPART (NovoLOG) 100 UNIT/ML VIAL SQ SCH (08:18)
[2024-02-06] MEDS: ATORVASTATIN 20 MG TAB PO SCH (08:18)
[2024-02-06] MEDS: carvediloL 12.5 MG TAB PO SCH (08:18)
[2024-02-06] MEDS: hydrALAZINE HCL 50 MG TAB PO SCH (08:18)
[2024-02-06] MEDS: POTASSIUM CHLORIDE ER 20 MEQ TAB.ER PO SCH (08:18)
[2024-02-06] MEDS: DULoxetine HCL 60 MG CAPSULE.DR PO SCH (08:18)
[2024-02-06] MEDS: ASPIRIN 81 MG PO SCH (08:19)
[2024-02-06] MEDS: rOPINIRole HCL 4 MG TABLET PO SCH (08:32)
[2024-02-06] MEDS: PANTOPRAZOLE 40 MG TABLET PO SCH (08:48)
--- NOTE | 2024-02-06 11:10 | P.PN ---
Subjective Progress Note Date: 02/06/24 88-year-old female with a PMH of diastolic CHF, chronic hypoxic respiratory failure on 2 L nasal cannula continuously at home, CKD stage IIIb, severe mitral regurgitation, moderate to severe tricuspid regurgitation, GERD, hypertension, type II DM, who presents to the emergency room with complaints of shortness of breath and lower extremity edema. Of note, the patient was recently discharged from the hospital after a 6-day hospitalization for CHF exacerbation. The patient was discharged home on oral Lasix 40 mg twice daily. She reports compliance with the medication but does report drinking more fluids in total than advised. She reports that her shortness of breath gradually worsened over the past 2 to 3 days along with the lower extremity edema. In the emergency room, chest x-ray was consistent with CHF with EKG showing sinus rhythm at 72 bpm with LVH and left axis deviation. Laboratory evaluation revealed a proBNP of 1020, troponin less than 0.012, BUN 38, creatinine 1.25 (at baseline), hemoglobin 10.8 with respiratory viral panel negative. SpO2 in the emergency room was 92% on 3 L nasal cannula oxygen. Started on Lasix 40 mg IV BID and admitted for CHF exacerbation. Cardiology consulted. 02/05 Patient was seen and examined. Reports SOB. On 5L NC. Most recent Echo 09/2023 shows EF 55-60%, severe pulmonary HTN, moderate LV thickness, mod-severe MR/TR. BMP K 3.4, bicarb 32, BUN 33, Cr 1.23, glu 193. General: non toxic, no distress, appears at stated age Derm: warm, dry Head: atraumatic, normocephalic, symmetric Eyes: EOMI, no lid lag, anicteric sclera Mouth: no lip lesion, mucus membranes moist Cardiovascular: S1S2 reg, diastolic murmur Lungs: Decreased BS bilateral, no rhonchi, no rales , no accessory muscle use Ext: no gross muscle atrophy, 2+ pitting bilateral lower extremity edema, no contractures Neuro: no focal neuro deficits Psych: Alert, oriented, appropriate affect Based on my assessment of this patient, this patient meets a high complexity level of care. Acute on chronic diastolic CHF exacerbation: Lasix 40 mg IV BID. Strict intake and outtake. Daily weights. Recent Echo as above. Cardiology consult. Acute on chronic hypoxic respiratory failure: Hopeful improvement with diuresis. Hypokalemia: KCl 40 meq PO BID. Chronic kidney disease: At baseline. Hypertension: Nifedipine 60 mg PO QD. Hydralazine 50 mg PO BID. Coreg 12.5 mg PO BID. Diabetes mellitus: ISS. Accuchecks ACHS. Hypoglycemic precautions. GERD: Omeprazole 20 mg PO QD. RLS: Ropinirole 4 mg PO BID. CODE STATUS: FULL CODE DVT Prophylaxis: Heparin GI Prophylaxis: Omeprazole Designated medical POA if patient is not able to make medical decisions for themselves: I have reviewed the following sourcing consultant notes: I have reviewed the results of the following tests: I have ordered the following tests: BMP tomorrow while on lasix to monitor renal function I have discussed the care of this patient with the following independent historian: I have independently interpreted the following test below: I have discussed the management of this patient with the following physician: Objective - Vital Signs Vital signs: Vital Signs Temp 97.5 F L 02/05/24 15:50 Pulse 80 02/06/24 06:30 Resp 18 02/06/24 06:30 BP 155/72 02/06/24 06:30 Pulse Ox 97 02/06/24 06:30 FiO2 Intake & Output 02/05/24 02/06/24 02/06/24 18:59 06:59 18:59 Output Total 1300 Balance -1300 Weight 61.235 kg Output: Urine 1300 - Labs CBC & Chem 7: 02/06/24 02:22 02/06/24 07:26 Labs: Abnormal Lab Results - Last 24 Hours (Table) 02/05/24 02/05/24 02/05/24 Range/Units 17:25 17:25 17:35 RBC 3.64 L (3.80-5.40) m/uL Hgb 10.8 L (11.4-16.0) gm/dL MCHC (31.0-37.0) g/dL RDW 15.6 H (11.5-15.5) % Lymphocytes # (1.0-4.8) k/uL APTT 21.5 L (22.0-30.0) sec Potassium (3.5-5.1) mmol/L Carbon Dioxide 31 H (22-30) mmol/L BUN 38 H (7-17) mg/dL Creatinine 1.25 H (0.52-1.04) mg/dL Glucose 115 H (74-99) mg/dL POC Glucose (mg/dL) (70-110) mg/dL Alkaline Phosphatase 154 H (38-126) U/L Urine Blood (Negative) Ur Leukocyte Esterase (Negative) Urine RBC (0-5) /hpf Urine Bacteria (None) /hpf 02/05/24 02/06/24 02/06/24 Range/Units 21:49 02:22 02:22 RBC 3.66 L (3.80-5.40) m/uL Hgb 10.8 L (11.4-16.0) gm/dL MCHC 30.7 L (31.0-37.0) g/dL RDW 15.6 H (11.5-15.5) % Lymphocytes # 0.9 L (1.0-4.8) k/uL APTT (22.0-30.0) sec Potassium 3.3 L (3.5-5.1) mmol/L Carbon Dioxide 32 H (22-30) mmol/L BUN 36 H (7-17) mg/dL Creatinine 1.22 H (0.52-1.04) mg/dL Glucose 150 H (74-99) mg/dL POC Glucose (mg/dL) (70-110) mg/dL Alkaline Phosphatase (38-126) U/L Urine Blood Trace H (Negative) Ur Leukocyte Esterase Trace H (Negative) Urine RBC 7 H (0-5) /hpf Urine Bacteria Many H (None) /hpf 02/06/24 02/06/24 Range/Units 07:17 07:26 RBC (3.80-5.40) m/uL Hgb (11.4-16.0) gm/dL MCHC (31.0-37.0) g/dL RDW (11.5-15.5) % Lymphocytes # (1.0-4.8) k/uL APTT (22.0-30.0) sec Potassium 3.4 L (3.5-5.1) mmol/L Carbon Dioxide 32 H (22-30) mmol/L BUN 33 H (7-17) mg/dL Creatinine 1.23 H (0.52-1.04) mg/dL Glucose 193 H (74-99) mg/dL POC Glucose (mg/dL) 205 H (70-110) mg/dL Alkaline Phosphatase (38-126) U/L Urine Blood (Negative) Ur Leukocyte Esterase (Negative) Urine RBC (0-5) /hpf Urine Bacteria (None) /hpf
[2024-02-06] MEDS: POTASSIUM CHLORIDE ER 20 MEQ TAB.ER PO STA (11:52)
[2024-02-06] MEDS: DAPAGLIFLOZIN PROPANEDIOL 10 MG TABLET PO SCH (11:52)
--- NOTE | 2024-02-06 12:20 | P.CRDCN ---
History of Present Illness Consult date: 02/06/24 Consult reason: congestive heart failure (Hypoxia) History of present illness: History of present illness: This is An 88-year-old female patient of Dr. Sebastian Gruber with past medical diabetes mellitus type 2, hypertension, dyslipidemia, mitral valve insufficiency, chronic diastolic heart failure. We have been asked to evaluate the patient for CHF and hypoxia. Patient had a recent hospitalization at the end of December which time she was seen by cardiology for acute on chronic diastolic heart failure. Patient states that she went to her daughters for a few days but then developed difficulty breathing that continued to get worse. She has dyspnea on exertion as well as shortness of breath at rest. She does feel better this morning when she woke up but it seems to be worsening as the day progresses with more shortness of breath. She states she has been taking all of her medications at home as directed. She denies having any chest pain or pressure. Patient is seen today in the emergency center waiting for bed on the cardiac stepdown unit. Patient has been started on IV Lasix 40 mg every 12 hours. EKG sinus rhythm at [address]-T wave changes. Chest x-ray: CHF with bilateral pulmonary edema. Small bilateral pleural effus ions. WBC 9.1, hemoglobin 10.8, platelet count 189. Sodium 144, potassium 3.4. BUN 33 and creatinine 1.23. Blood sugar 193. Troponin negative x 3 proBNP 1020. Alkaline phosphatase 154. Urinalysis trace leukoesterase, RBCs 7. Bacteria many. Influenza A, influenza B, RSV, COVID-19 not detected. Home cardiac medications: Aspirin 81 mg daily, atorvastatin 20 mg daily, Coreg 12.5 mg twice daily, Lasix 40 mg twice daily, hydralazine 50 mg twice daily, Procardia XL 60 mg daily, potassium chloride 40 mill equivalents twice daily. Echocardiogram performed 10/09/2023 reveals normal LV function. Severe pulmonary hypertension. Moderate to severe mitral regurgitation. Moderate to severe tricuspid regurgitation. Review Of Systems: At the time of my exam: CONSTITUTIONAL: Denies fever or chills. HEENT: Denies blurred vision, vision changes, or eye pain. Denies hemoptysis CARDIOVASCULAR: Denies chest pain. Denies orthopnea. Denies PND. Denies palpitations RESPIRATORY: + shortness of breath. + Dyspnea on exertion GASTROINTESTINAL: Denies abdominal pain. Denies nausea or vomiting. HEMATOLOGIC: Denies bleeding disorders. GENITOURINARY: Denies any blood in urine. SKIN: Denies pruitis. Denies rash. Physical examination: Gen: This is a 88-year-old female in mild respiratory distress VS: reviewed, blood pressure 155/72, heart rate 80, pulse ox 97% on 5 L nasal cannula. HEENT: Head is atraumatic, normocephalic. Pupils equal, round. Sclerae is anicteric. NECK: Supple. No JVD. LUNGS: Diminished breath sounds. No intercostal retractions. HEART: Regular rate and rhythm. Systolic murmur at the apex at the left lower sternal border. ABDOMEN: Soft No tenderness. EXTREMITIES: 2+ bilateral lower extremity edema. No calf tenderness. NEUROLOGICAL: Patient is awake, alert and oriented x3. Assessment: Acute on chronic diastolic heart failure Hypertension, uncontrolled Dyslipidemia Diabetes mellitus type 2 Moderate to severe mitral regurgitation Plan: Resume patient's home cardiac medications Continue IV Lasix Monitor MARLENA, daily weights, electrolytes and renal function. Start patient on Farxiga 10 mg daily Increase nifedipine to 90 mg daily Consider workup for mitral clip as an outpatient No need to repeat echocardiogram as it was done in September Further recommendations to follow based upon clinical course Thank you kindly for this consultation. Nurse practitioner note has been reviewed, I agree with documented findings and plan of care. Patient was seen and examined. Past Medical History Past Medical History: Heart Failure, Diabetes Mellitus, Hypertension, Pneumonia Additional Past Medical History / Comment(s): new CHF 09/2023, "kidney , home oxygen@3L/min History of Any Multi-Drug Resistant Organisms: ESBL Date of last positivie culture/infection: 11/26/23 MDRO Source:: Blood Past Surgical History: Hysterectomy Additional Past Surgical History / Comment(s): R hip, cataract sx Past Anesthesia/Blood Transfusion Reactions: No Reported Reaction Past Psychological History: No Psychological Hx Reported Smoking Status: Never smoker Past Alcohol Use History: None Reported Past Drug Use History: None Reported - Past Family History Mother Family Medical History: Hypertension Medications and Allergies Home Medications Medication Instructions Recorded Confirmed Type Ergocalciferol (Vitamin D2) 1,250 mcg PO APPIAH 10/08/23 02/05/24 History [Drisdol (50,000 Iu)] Potassium Chloride ER [K-Dur 20] 40 meq PO BID tab 10/19/23 02/05/24 Rx Albuterol Sulfate [Albuterol 2 puff INHALATION RT-Q6H 11/02/23 02/05/24 History Sulfate Hfa] Atorvastatin [Lipitor] 20 mg PO DAILY 11/02/23 02/05/24 History Omeprazole 20 mg PO DAILY 11/02/23 02/05/24 History rOPINIRole HCL [Requip] 4 mg PO BID 11/02/23 02/05/24 History Collagenase [Santyl Ointment] 1 applic TOPICAL DAILY each 11/06/23 02/05/24 Rx DULoxetine HCL [Cymbalta] 60 mg PO BID 11/26/23 02/05/24 History Furosemide [Lasix] 40 mg PO BID@0800,1600 11/26/23 02/05/24 History Insulin Lispro [Insulin Lispro See Protocol SQ AC-TID 11/26/23 02/05/24 History Kwikpen U-100] Ipratropium-Albuterol Nebulize 3 ml INHALATION RT-BID 11/26/23 02/05/24 History [Duoneb 0.5 mg-3 mg/3 ml Soln] Aspirin EC [Ecotrin Low Dose] 81 mg PO DAILY 12/14/23 02/05/24 History NIFEdipine XL [Procardia XL] 60 mg PO DAILY 12/14/23 02/05/24 History carvediloL [Coreg*] 12.5 mg PO BID-W/MEALS #60 tab 12/15/23 02/05/24 Rx hydrALAZINE HCL [Apresoline] 50 mg PO BID #60 tab 12/15/23 02/05/24 Rx Insulin Glargine-Yfgn 22 units SQ HS 01/23/24 02/05/24 History Insulin Lispro [Insulin Lispro 4 unit SQ AC-TID 01/23/24 02/05/24 History Kwikpen U-100] glipiZIDE [Glucotrol] 5 mg PO AC-BRKFST 01/27/24 02/05/24 History Allergies Allergy/AdvReac Type Severity Reaction Status Date / Time No Known Allergies Allergy Verified 02/05/24 19:13 Physical Exam Vitals: Vital Signs Temp Pulse Resp BP Pulse Ox 02/06/24 06:30 80 18 155/72 97 02/06/24 04:13 77 18 141/71 97 02/05/24 22:07 74 20 163/83 94 L 02/05/24 19:00 83 20 142/73 94 L 02/05/24 17:48 72 20 142/73 93 L 02/05/24 17:45 75 20 93 L 02/05/24 17:13 88 02/05/24 16:55 76 02/05/24 16:15 20 02/05/24 15:50 97.5 F L 73 22 198/81 92 L Intake and Output 02/05/24 02/06/24 02/06/24 22:59 06:59 14:59 Output Total 1300 Balance -1300 Output: Urine 1300 Other: Weight 61.235 kg Results 02/06/24 02:22 02/06/24 07:26 Cardiac Enzymes 02/05/24 02/05/24 02/05/24 Range/Units 17:35 17:35 23:20 AST 24 (14-36) U/L Troponin I <0.012 <0.012 (0.000-0.034) ng/mL 02/06/24 Range/Units 02:22 AST (14-36) U/L Troponin I <0.012 (0.000-0.034) ng/mL Coagulation 02/05/24 Range/Units 17:25 PT 10.7 (10.0-12.5) sec APTT 21.5 L (22.0-30.0) sec CBC 02/05/24 02/06/24 Range/Units 17:25 02:22 WBC 8.6 9.1 (3.8-10.6) k/uL RBC 3.64 L 3.66 L (3.80-5.40) m/uL Hgb 10.8 L 10.8 L (11.4-16.0) gm/dL Hct 34.8 35.4 (34.0-46.0) % Plt Count 162 189 (150-450) k/uL Comprehensive Metabolic Panel 02/05/24 02/06/24 02/06/24 Range/Units 17:35 02:22 07:26 Sodium 142 142 144 (137-145) mmol/L Potassium 3.7 3.3 L 3.4 L (3.5-5.1) mmol/L Chloride 106 105 104 (98-107) mmol/L Carbon Dioxide 31 H 32 H 32 H (22-30) mmol/L BUN 38 H 36 H 33 H (7-17) mg/dL Creatinine 1.25 H 1.22 H 1.23 H (0.52-1.04) mg/dL Glucose 115 H 150 H 193 H (74-99) mg/dL Calcium 9.0 9.0 9.1 (8.4-10.2) mg/dL AST 24 (14-36) U/L ALT 16 (4-34) U/L Alkaline Phosphatase 154 H (38-126) U/L Total Protein 7.0 (6.3-8.2) g/dL Albumin 3.6 (3.5-5.0) g/dL Current Medications Generic Name Dose Route Start Last Admin Trade Name Freq PRN Reason Stop Dose Admin Albuterol/Ipratropium 3 ml 02/06/24 20:00 Ipratropium-Albuterol 3 Ml Neb INHALATION RT-BID KATELIN Aspirin 81 mg 02/06/24 09:00 02/06/24 08:19 Aspirin 81 Mg PO 81 mg DAILY KATELIN Administration Atorvastatin Calcium 20 mg 02/06/24 09:00 02/06/24 08:18 Atorvastatin 20 Mg Tab PO 20 mg DAILY KATELIN Administration Carvedilol 12.5 mg 02/06/24 07:30 02/06/24 08:18 Carvedilol 12.5 Mg Tab PO 12.5 mg BID-W/MEALS KATELIN Administration Duloxetine HCl 60 mg 02/06/24 09:00 02/06/24 08:18 Duloxetine Hcl 60 Mg Capsule.Dr PO 60 mg BID KATELIN Administration Furosemide 40 mg 02/05/24 21:00 02/06/24 08:17 Furosemide 10 Mg/Ml 4 Ml Vial IV 40 mg Q12HR KATELIN Administration Heparin Sodium (Porcine) 5,000 unit 02/05/24 21:00 02/06/24 08:17 Heparin Sodium,Porcine 5,000 Unit/Ml 1 Ml Vial SQ 5,000 unit Q12HR KATELIN Administration Hydralazine HCl 50 mg 02/06/24 09:00 02/06/24 08:18 Hydralazine Hcl 50 Mg Tab PO 50 mg BID KATELIN Administration Insulin Aspart 0 unit 02/06/24 07:30 02/06/24 08:18 Insulin Aspart (Novolog) 100 Unit/Ml Vial SQ 4 unit ACHS KATELIN Administration Protocol Naloxone HCl 0.2 mg 02/05/24 19:13 Naloxone 0.4 Mg/Ml 1 Ml Vial IV Q2M PRN Opioid Reversal Nifedipine 60 mg 02/06/24 09:00 02/06/24 08:32 Nifedipine Xl 60 Mg Tab.Er.24 PO 60 mg DAILY KATELIN Administration Pantoprazole Sodium 40 mg 02/06/24 09:00 Pantoprazole 40 Mg Tablet PO DAILY KATELIN Potassium Chloride 40 meq 02/06/24 09:00 02/06/24 08:18 Potassium Chloride Er 20 Meq Tab.Er PO 40 meq BID KATELIN Administration Ropinirole HCl 4 mg 02/06/24 09:00 02/06/24 08:32 Ropinirole Hcl 4 Mg Tablet PO 4 mg BID KATELIN Administration Intake and Output 02/05/24 02/06/24 02/06/24 22:59 06:59 14:59 Output Total 1300 Balance -1300 Output: Urine 1300 Other: Weight 61.235 kg 02/06/24 02:22 02/06/24 07:26
[2024-02-06 12:39] LABS: Glucose,Whole Blood 259 mg/dL (70-110)
[2024-02-06] MEDS: NIFEdipine XL 30 MG TAB.ER.24 PO STA (12:59)
[2024-02-06 16:58] LABS: Glucose,Whole Blood 111 mg/dL (70-110)
[2024-02-06] MEDS: IPRATROPIUM-ALBUTEROL 3 ML NEB INHALATION SCH (19:48)
[2024-02-06 20:01] LABS: Glucose,Whole Blood 229 mg/dL (70-110)
[2024-02-07 06:06] LABS: Glucose,Whole Blood 129 mg/dL (70-110)
[2024-02-07] MEDS: NIFEdipine XL 90 MG TAB.ER.24 PO SCH (08:50)
[2024-02-07 09:05] LABS: African American GFR (CKD) 41 (>60 ml/min/1.73 sqM); Anion Gap 3 mmol/L; Blood Urea Nitrogen 32 mg/dL (7-17); Calcium 9.3 mg/dL (8.4-10.2); Carbon Dioxide 36 mmol/L (22-30); Chloride 104 mmol/L (98-107); Glucose 205 mg/dL (74-99); Non-African American GFR(CKD) 36 (>60 ml/min/1.73 sqM); Potassium 4.3 mmol/L (3.5-5.1); Sodium 143 mmol/L (137-145)
--- NOTE | 2024-02-07 11:25 | P.PN ---
Subjective Progress Note Date: 02/07/24 88-year-old female with a PMH of diastolic CHF, chronic hypoxic respiratory failure on 2 L nasal cannula continuously at home, CKD stage IIIb, severe mitral regurgitation, moderate to severe tricuspid regurgitation, GERD, hypertension, type II DM, who presents to the emergency room with complaints of shortness of breath and lower extremity edema. Of note, the patient was recently discharged from the hospital after a 6-day hospitalization for CHF exacerbation. The patient was discharged home on oral Lasix 40 mg twice daily. She reports compliance with the medication but does report drinking more fluids in total than advised. She reports that her shortness of breath gradually worsened over the past 2 to 3 days along with the lower extremity edema. In the emergency room, chest x-ray was consistent with CHF with EKG showing sinus rhythm at 72 bpm with LVH and left axis deviation. Laboratory evaluation revealed a proBNP of 1020, troponin less than 0.012, BUN 38, creatinine 1.25 (at baseline), hemoglobin 10.8 with respiratory viral panel negative. SpO2 in the emergency room was 92% on 3 L nasal cannula oxygen. Started on Lasix 40 mg IV BID and admitted for CHF exacerbation. Cardiology consulted. 02/05 Patient was seen and examined. Reports SOB. On 5L NC. Most recent Echo 09/2023 shows EF 55-60%, severe pulmonary HTN, moderate LV thickness, mod-severe MR/TR. BMP K 3.4, bicarb 32, BUN 33, Cr 1.23, glu 193. 02/06 Patient was seen and examined. Reports feeling slightly better. Daughter at bedside. Does not drink much water but eats alot of restaurant take out food. On 5L NC. BMP bicarb 36, BUN 32, Cr 1.33, glu 205. Negative 2350 cc fluid balance over the past 24H. General: non toxic, no distress, appears at stated age Derm: warm, dry Head: atraumatic, normocephalic, symmetric Eyes: EOMI, no lid lag, anicteric sclera Mouth: no lip lesion, mucus membranes moist Cardiovascular: S1S2 reg, diastolic murmur Lungs: Decreased BS bilateral, no rhonchi, no rales , no accessory muscle use Ext: no gross muscle atrophy, 2+ pitting bilateral lower extremity edema, no contractures Neuro: no focal neuro deficits Psych: Alert, oriented, appropriate affect Based on my assessment of this patient, this patient meets a high complexity level of care. Acute on chronic diastolic CHF exacerbation: Lasix 40 mg IV BID. Strict intake and outtake. Daily weights. Recent Echo as above. Cardiology on board. Acute on chronic hypoxic respiratory failure: Hopeful improvement with diuresis. Chronic kidney disease: At baseline. Hypertension: Nifedipine 60 mg PO QD. Hydralazine 50 mg PO BID. Coreg 12.5 mg PO BID. Diabetes mellitus: ISS. Accuchecks ACHS. Hypoglycemic precautions. GERD: Omeprazole 20 mg PO QD. RLS: Ropinirole 4 mg PO BID. Resolved: HypoK CODE STATUS: FULL CODE DVT Prophylaxis: Heparin GI Prophylaxis: Omeprazole Designated medical POA if patient is not able to make medical decisions for themselves: I have reviewed the following consumer experience consultant notes: Cardiology. I have reviewed the results of the following tests: BMP. I have ordered the following tests: BMP tomorrow while on lasix to monitor renal function I have discussed the care of this patient with the following independent historian: Daughter. I have independently interpreted the following test below: I have discussed the management of this patient with the following physician: Objective - Vital Signs Vital signs: Vital Signs Temp 97.5 F L 02/07/24 04:36 Pulse 84 02/07/24 08:26 Resp 16 02/07/24 08:00 BP 134/66 02/07/24 08:00 Pulse Ox 95 02/07/24 08:00 FiO2 Intake & Output 02/06/24 02/07/24 02/07/24 18:59 06:59 18:59 Intake Total 700 480 Output Total 2800 250 Balance -2100 -250 480 Weight 61.235 kg 64.5 kg Intake: Oral 700 480 Output: Urine 2800 250 Other: Voiding Method External Catheter External Catheter # Voids 2 - Labs CBC & Chem 7: 02/06/24 02:22 02/07/24 08:27 Labs: Abnormal Lab Results - Last 24 Hours (Table) 02/06/24 02/06/24 02/06/24 Range/Units 12:36 16:56 20:00 Carbon Dioxide (22-30) mmol/L BUN (7-17) mg/dL Creatinine (0.52-1.04) mg/dL Glucose (74-99) mg/dL POC Glucose (mg/dL) 259 H 111 H 229 H (70-110) mg/dL 02/07/24 02/07/24 Range/Units 06:04 08:27 Carbon Dioxide 36 H (22-30) mmol/L BUN 32 H (7-17) mg/dL Creatinine 1.33 H (0.52-1.04) mg/dL Glucose 205 H (74-99) mg/dL POC Glucose (mg/dL) 129 H (70-110) mg/dL
[2024-02-07 11:40] LABS: Glucose,Whole Blood 317 mg/dL (70-110)
--- NOTE | 2024-02-07 12:22 | P.PN ---
Subjective Progress Note Date: 02/07/24 Consult reason: congestive heart failure (Hypoxia) History of present illness: This is An 88-year-old female patient of Dr. Sebastian Gruber with past medical diabetes mellitus type 2, hypertension, dyslipidemia, mitral valve insufficiency, chronic diastolic heart failure. We have been asked to evaluate the patient for CHF and hypoxia. Patient had a recent hospitalization at the end of December which time she was seen by cardiology for acute on chronic diastolic heart failure. Patient states that she went to her daughters for a few days but then developed difficulty breathing that continued to get worse. She has dyspnea on exertion as well as shortness of breath at rest. She does feel better this morning when she woke up but it seems to be worsening as the day progresses with more shortness of breath. She states she has been taking all of her medications at home as directed. She denies having any chest pain or pressure. Patient is seen today in the emergency center waiting for bed on the cardiac stepdown unit. Patient has been started on IV Lasix 40 mg every 12 hours. EKG sinus rhythm at [address]-T wave changes. Chest x-ray: CHF with bilateral pulmonary edema. Small bilateral pleural effusions. WBC 9.1, hemoglobin 10.8, platelet count 189. Sodium 144, potassium 3.4. BUN 33 and creatinine 1.23. Blood sugar 193. Troponin negative x 3 proBNP 1020. Alkaline phosphatase 154. Urinalysis trace leukoesterase, RBCs 7. Bacteria many. Influenza A, influenza B, RSV, COVID-19 not detected. Home cardiac medications: Aspirin 81 mg daily, atorvastatin 20 mg daily, Coreg 12.5 mg twice daily, Lasix 40 mg twice daily, hydralazine 50 mg twice daily, Procardia XL 60 mg daily, potassium chloride 40 mill equivalents twice daily. Echocardiogram performed 10/09/2023 reveals normal LV function. Severe pulmonary hypertension. Moderate to severe mitral regurgitation. Moderate to severe tricuspid regurgitation. 02/06 Patient has been maintained on IV Lasix 40 mg every 12 hours. She denies having any chest pain or chest pressure. She states she has had good urine output. Blood pressure 134/66, heart rate 84, pulse ox 95% on 4 L nasal cannula. Repeat blood work reveals stable renal function with BUN 32 creatinine 1.33, potassium 4.3. Yesterday, patient was started on Farxiga and nifedipine was increased to 90 mg with improvement of blood pressure readings. Physical examination: Gen: This is a 88-year-old female in mild respiratory distress VS: reviewed HEENT: Head is atraumatic, normocephalic. Pupils equal, round. Sclerae is anicteric. NECK: Supple. No JVD. LUNGS: Diminished breath sounds. No intercostal retractions. HEART: Regular rate and rhythm. Systolic murmur at the apex at the left lower sternal border. ABDOMEN: Soft No tenderness. EXTREMITIES: 2+ bilateral lower extremity edema. No calf tenderness. NEUROLOGICAL: Patient is awake, alert and oriented x3. Assessment: Acute on chronic diastolic heart failure Hypertension, uncontrolled Dyslipidemia Diabetes mellitus type 2 Moderate to severe mitral regurgitation Plan: Resume patient's home cardiac medications Continue IV Lasix 40 mg every 12 hours Monitor MARLENA, daily weights, electrolytes and renal function. Continue patient on Farxiga 10 mg daily Continue increase nifedipine 90 mg daily Consider workup for mitral clip as an outpatient No need to repeat echocardiogram as it was done in September Further recommendations to follow based upon clinical course Nurse practitioner note has been reviewed, I agree with documented findings and plan of care. Patient was seen and examined. Objective - Vital Signs Vital signs: Vital Signs Temp 97.5 F L 02/07/24 04:36 Pulse 84 02/07/24 08:26 Resp 16 02/07/24 08:00 BP 134/66 02/07/24 08:00 Pulse Ox 95 02/07/24 08:00 FiO2 Intake & Output 02/06/24 02/07/24 02/07/24 18:59 06:59 18:59 Intake Total 700 480 Output Total 2800 250 Balance -2100 -250 480 Weight 61.235 kg 64.5 kg Intake: Oral 700 480 Output: Urine 2800 250 Other: Voiding Method External Catheter # Voids 2 - Labs CBC & Chem 7: 02/06/24 02:22 02/07/24 08:27 Labs: Abnormal Lab Results - Last 24 Hours (Table) 02/06/24 02/06/24 02/06/24 Range/Units 12:36 16:56 20:00 Carbon Dioxide (22-30) mmol/L BUN (7-17) mg/dL Creatinine (0.52-1.04) mg/dL Glucose (74-99) mg/dL POC Glucose (mg/dL) 259 H 111 H 229 H (70-110) mg/dL 02/07/24 02/07/24 Range/Units 06:04 08:27 Carbon Dioxide 36 H (22-30) mmol/L BUN 32 H (7-17) mg/dL Creatinine 1.33 H (0.52-1.04) mg/dL Glucose 205 H (74-99) mg/dL POC Glucose (mg/dL) 129 H (70-110) mg/dL
[2024-02-07 16:27] LABS: Glucose,Whole Blood 163 mg/dL (70-110)
[2024-02-07 20:20] LABS: Glucose,Whole Blood 189 mg/dL (70-110)
[2024-02-08 05:38] VITALS: RESP 18
[2024-02-08 06:18] LABS: Glucose,Whole Blood 184 mg/dL (70-110)
[2024-02-08 08:09] LABS: African American GFR (CKD) 38 (>60 ml/min/1.73 sqM); Anion Gap 9 mmol/L; Blood Urea Nitrogen 43 mg/dL (7-17); Calcium 9.5 mg/dL (8.4-10.2); Carbon Dioxide 31 mmol/L (22-30); Chloride 102 mmol/L (98-107); Glucose 168 mg/dL (74-99); Magnesium 1.9 mg/dL (1.6-2.3); Non-African American GFR(CKD) 33 (>60 ml/min/1.73 sqM); Potassium 4.8 mmol/L (3.5-5.1); Sodium 142 mmol/L (137-145)
[2024-02-08 11:55] VITALS: TEMP 97.4
--- NOTE | 2024-02-08 12:18 | P.DS ---
Providers Date of admission: 02/05/24 19:13 Expected date of discharge: 02/08/24 Attending physician: Laura Mckeon DO Consults: 02/05/24 19:13 Consult Physician Routine Consulting Provider: [facility] Consult Reason/Comments: chf, hypoxia Do you want consulting provider notified?: Yes Primary care physician: Brianne Herrera [facility] Course: 88-year-old female with a PMH of diastolic CHF, chronic hypoxic respiratory failure on 2 L nasal cannula continuously at home, CKD stage IIIb, severe mitral regurgitation, moderate to severe tricuspid regurgitation, GERD, hypertension, type II DM, who presents to the emergency room with complaints of shortness of breath and lower extremity edema. Of note, the patient was recently discharged from the hospital after a 6-day hospitalization for CHF exacerbation. The patient was discharged home on oral Lasix 40 mg twice daily. She reports compliance with the medication but does report drinking more fluids in total th an advised. She reports that her shortness of breath gradually worsened over the past 2 to 3 days along with the lower extremity edema. In the emergency room, chest x-ray was consistent with CHF with EKG showing sinus rhythm at 72 bpm with LVH and left axis deviation. Laboratory evaluation revealed a proBNP of 1020, troponin less than 0.012, BUN 38, creatinine 1.25 (at baseline), hemoglobin 10.8 with respiratory viral panel negative. SpO2 in the emergency room was 92% on 3 L nasal cannula oxygen. Started on Lasix 40 mg IV BID and admitted for CHF exacerbation. Cardiology consulted. 02/05 Patient was seen and examined. Reports SOB. On 5L NC. Most recent Echo 09/2023 shows EF 55-60%, severe pulmonary HTN, moderate LV thickness, mod-severe MR/TR. BMP K 3.4, bicarb 32, BUN 33, Cr 1.23, glu 193. 02/06 Patient was seen and examined. Reports feeling slightly better. Daughter at bedside. Does not drink much water but eats alot of restaurant take out food. On 5L NC. BMP bicarb 36, BUN 32, Cr 1.33, glu 205. Negative 2350 cc fluid balance over the past 24H. 02/07 Patient was seen and examined. 95% on 4L NC. Breathing improved. Discussed with Alisson WALLACE, Cardiology cleared for discharge, switch to Lasix 40 mg PO BID. BMP bicarb 31, BUN 43, Cr 1.41, glu 168. Negative 2350 cc fluid balance on 02/06. Negative 732 cc fluid balance so far today. Weight 61.235 kg on admission - 64.5 kg - 63.5 kg. Follow up with PCP within 1-2 days and Cardiology within 1 week of discharge. Advised 1.5L fluid restriction and low salt diet (cut down on restaurant food). Daughter verbalized understanding of the plan. General: non toxic, no distress, appears at stated age Derm: warm, dry Head: atraumatic, normocephalic, symmetric Eyes: EOMI, no lid lag, anicteric sclera Mouth: no lip lesion, mucus membranes moist Cardiovascular: S1S2 reg, diastolic murmur Lungs: Decreased BS bilateral, no rhonchi, no rales , no accessory muscle use Ext: no gross muscle atrophy, 2+ pitting bilateral lower extremity edema, no contractures Neuro: no focal neuro deficits Psych: Alert, oriented, appropriate affect Discharge Diagnosis: Acute on chronic diastolic CHF exacerbation Acute on chronic hypoxic respiratory failure Chronic kidney disease Hypertension Diabetes mellitus GERD RLS Resolved: HypoK This complex discharge took 35 minutes to complete. Patient Condition at Discharge: Stable Plan - Discharge Summary Discharge Rx Participant: No New Discharge Prescriptions: New Dapagliflozin Propanediol [Farxiga] 10 mg PO DAILY #30 tab NIFEdipine XL [Procardia XL] 90 mg PO DAILY #30 tab Continue Ergocalciferol (Vitamin D2) [Drisdol (50,000 Iu)] 1,250 mcg PO APPIAH rOPINIRole HCL [Requip] 4 mg PO BID Albuterol Sulfate [Albuterol Sulfate Hfa] 2 puff INHALATION RT-Q6H Insulin Lispro [Insulin Lispro Kwikpen U-100] See Protocol SQ AC-TID Furosemide [Lasix] 40 mg PO BID@0800,1600 hydrALAZINE HCL [Apresoline] 50 mg PO BID #60 tab carvediloL [Coreg*] 12.5 mg PO BID-W/MEALS #60 tab Potassium Chloride ER [K-Dur 20] 40 meq PO BID tab Omeprazole 20 mg PO DAILY Atorvastatin [Lipitor] 20 mg PO DAILY Collagenase [Santyl Ointment] 1 applic TOPICAL DAILY each DULoxetine HCL [Cymbalta] 60 mg PO BID Ipratropium-Albuterol Nebulize [Duoneb 0.5 mg-3 mg/3 ml Soln] 3 ml INHALATION RT-BID Aspirin EC [Ecotrin Low Dose] 81 mg PO DAILY Insulin Lispro [Insulin Lispro Kwikpen U-100] 4 unit SQ AC-TID Insulin Glargine-Yfgn 22 units SQ HS glipiZIDE [Glucotrol] 5 mg PO AC-BRKFST Discontinued NIFEdipine XL [Procardia XL] 60 mg PO DAILY Discharge Medication List Ergocalciferol (Vitamin D2) [Drisdol (50,000 Iu)] 1,250 mcg PO APPIAH 10/08/23 [History] Potassium Chloride ER [K-Dur 20] 40 meq PO BID tab 10/19/23 [Rx] Albuterol Sulfate [Albuterol Sulfate Hfa] 2 puff INHALATION RT-Q6H 11/02/23 [History] Atorvastatin [Lipitor] 20 mg PO DAILY 11/02/23 [History] Omeprazole 20 mg PO DAILY 11/02/23 [History] rOPINIRole HCL [Requip] 4 mg PO BID 11/02/23 [History] Collagenase [Santyl Ointment] 1 applic TOPICAL DAILY each 11/06/23 [Rx] DULoxetine HCL [Cymbalta] 60 mg PO BID 11/26/23 [History] Furosemide [Lasix] 40 mg PO BID@0800,1600 11/26/23 [History] Insulin Lispro [Insulin Lispro Kwikpen U-100] See Protocol SQ AC-TID 11/26/23 [History] Ipratropium-Albuterol Nebulize [Duoneb 0.5 mg-3 mg/3 ml Soln] 3 ml INHALATION RT-BID 11/26/23 [History] Aspirin EC [Ecotrin Low Dose] 81 mg PO DAILY 12/14/23 [History] carvediloL [Coreg*] 12.5 mg PO BID-W/MEALS #60 tab 12/15/23 [Rx] hydrALAZINE HCL [Apresoline] 50 mg PO BID #60 tab 12/15/23 [Rx] Insulin Glargine-Yfgn 22 units SQ HS 01/23/24 [History] Insulin Lispro [Insulin Lispro Kwikpen U-100] 4 unit SQ AC-TID 01/23/24 [History] glipiZIDE [Glucotrol] 5 mg PO AC-BRKFST 01/27/24 [History] Dapagliflozin Propanediol [Farxiga] 10 mg PO DAILY #30 tab 02/08/24 [Rx] NIFEdipine XL [Procardia XL] 90 mg PO DAILY #30 tab 02/08/24 [Rx] Follow up Appointment(s)/Referral(s): Brianne Herrera MD [Primary Care Provider] - 1-2 days Jin Sheldon DO [STAFF PHYSICIAN] - [facility] [NON-STAFF] - Activity/Diet/Wound Care/Special Instructions: Patient is requesting a [employer] ride at d/c. She is aware of cost. [facility]: [phone] Discharge Disposition: HOME SELF-CARE
[2024-02-08 12:21] LABS: Glucose,Whole Blood 298 mg/dL (70-110)
--- NOTE | 2024-02-08 13:16 | P.PN ---
Subjective HISTORY OF PRESENT ILLNESS: This is An 88-year-old female patient of Dr. Sebastian Gruber with past medical diabetes mellitus type 2, hypertension, dyslipidemia, mitral valve insufficiency, chronic diastolic heart failure. We have been asked to evaluate the patient for CHF and hypoxia. Patient had a recent hospitalization at the end of December which time she was seen by cardiology for acute on chronic diastolic heart failure. Patient states that she went to her daughters for a few days but then developed difficulty breathing that continued to get worse. She has dyspnea on exertion as well as shortness of breath at rest. She does feel better this morning when she woke up but it seems to be worsening as the day progresses with more shortness of breath. She states she has been taking all of her medications at home as directed. She denies having any chest pain or pressure. Patient is seen today in the emergency center waiting for bed on the cardiac stepdown unit. Patient has been started on IV Lasix 40 mg every 12 hours. EKG sinus rhythm at [address]-T wave changes. Chest x-ray: CHF with bilateral pulmonary edema. Small bilateral pleural effusions. WBC 9.1, hemoglobin 10.8, platelet count 189. Sodium 144, potassium 3.4. BUN 33 and creatinine 1.23. Blood sugar 193. Troponin negative x 3 proBNP 1020. Alkaline phosphatase 154. Urinalysis trace leukoesterase, RBCs 7. Bacteria many. Influenza A, influenza B, RSV, COVID-19 not detected. Home cardiac medications: Aspirin 81 mg daily, atorvastatin 20 mg daily, Coreg 12.5 mg twice daily, Lasix 40 mg twice daily, hydralazine 50 mg twice daily, Procardia XL 60 mg daily, potassium chloride 40 mill equivalents twice daily. Echocardiogram performed 10/09/2023 reveals normal LV function. Severe pulmonary hypertension. Moderate to severe mitral regurgitation. Moderate to severe tricuspid regurgitation. 02/06 Patient has been maintained on IV Lasix 40 mg every 12 hours. She denies having any chest pain or chest pressure. She states she has had good urine output. Blood pressure 134/66, heart rate 84, pulse ox 95% on 4 L nasal cannula. Repeat blood work reveals stable renal function with BUN 32 creatinine 1.33, potassium 4.3. Yesterday, patient was started on Farxiga and nifedipine was increased to 90 mg with improvement of blood pressure readings. 02/08/2024 Patient examined this morning the bedside. Patient denies chest pain or pressure. She denies shortness of breath. Patient remains on IV Lasix. Vital signs are stable. PHYSICAL EXAM: VITAL SIGNS: Reviewed. GENERAL: Well-developed in no acute distress. NECK: Supple. No JVD or thyromegaly LUNGS: Respirations even and unlabored. Lungs essentially clear to auscultation bilaterally. HEART: Regular rate and rhythm. S1 and S2 heard. Systolic murmur noted EXTREMITIES: Normal range of motion. No clubbing or cyanosis. Peripheral pulses intact. No lower extremity edema ASSESSMENT: Acute on chronic heart failure with preserved EF Hypertension, uncontrolled Dyslipidemia Diabetes mellitus type 2 Moderate to severe mitral regurgitation Severe pulmonary hypertension PLAN: Discontinue IV Lasix. Begin oral Lasix 40 mg twice a day Continue additional cardiac medications Patient is stable for discharge home today from a cardiac standpoint She is to follow-up postdischarge with Dr. Gruber Nurse practitioner note has been reviewed by physician. Signing provider agrees with the documented findings, assessment, and plan of care documented by [facility] as a scribe. Objective - Vital Signs Vital signs: Vital Signs Temp 97.7 F 02/08/24 04:00 Pulse 68 02/08/24 10:03 Resp 18 02/08/24 04:00 BP 132/69 02/08/24 04:00 Pulse Ox 95 02/08/24 04:00 FiO2 Intake & Output 02/07/24 02/08/24 02/08/24 18:59 06:59 18:59 Intake Total 960 240 118 Output Total 800 900 350 Balance 160 -660 -232 Weight 63.5 kg Intake: Oral 960 240 118 Output: Urine 800 900 350 Other: Voiding Method External Catheter External Catheter - Labs CBC & Chem 7: 02/06/24 02:22 02/08/24 06:22 Labs: Abnormal Lab Results - Last 24 Hours (Table) 02/07/24 02/07/24 02/07/24 Range/Units 11:38 16:25 20:18 Carbon Dioxide (22-30) mmol/L BUN (7-17) mg/dL Creatinine (0.52-1.04) mg/dL Glucose (74-99) mg/dL POC Glucose (mg/dL) 317 H 163 H 189 H (70-110) mg/dL 05/13/24 05/13/24 Range/Units 06:17 06:22 Carbon Dioxide 31 H (22-30) mmol/L BUN 43 H (7-17) mg/dL Creatinine 1.41 H (0.52-1.04) mg/dL Glucose 168 H (74-99) mg/dL POC Glucose (mg/dL) 184 H (70-110) mg/dL
[2024-02-08 14:16] VITALS: BP 116/72; PULSE 65
[2024-02-08] MEDS ORDERED: FUROSEMIDE 40 MG TAB PO SCH (16:00)
== END 2024-02-08 14:42 | disposition home or self-care (01) | DRG 291 ==
LOC: EC 15:45 → 3SCARD 19:13
PROVIDERS: ADMIT Internal Medicine; ATTEND Internal Medicine
DX: I13.0 Hypertensive heart and chronic kidney disease with heart failure and stage 1 through stage 4 chronic kidney disease, or unspecified chronic kidney disease (principal); I50.33 Acute on chronic diastolic (congestive) heart failure; J96.21 Acute and chronic respiratory failure with hypoxia; E87.6 Hypokalemia; G25.81 Restless legs syndrome; I08.1 Rheumatic disorders of both mitral and tricuspid valves; I27.20 Pulmonary hypertension, unspecified; K21.9 Gastro-esophageal reflux disease without esophagitis; N18.32 Chronic kidney disease, stage 3b; E78.5 Hyperlipidemia, unspecified; E11.22 Type 2 diabetes mellitus with diabetic chronic kidney disease; Z79.4 Long term (current) use of insulin; Z79.82 Long term (current) use of aspirin; Z79.84 Long term (current) use of oral hypoglycemic drugs; Z79.899 Other long term (current) drug therapy; Z11.52 Encounter for screening for COVID-19
CPT/HCPCS: 36415; 71046; 80048; 80053; 81001; 83605; 83735; 83880; 84484; 85025; 85610; 85730; 87636; 93005; 94640; 96372; 96374; 96376; 99285; 99291

== ENCOUNTER 2024-03-14 22:32 | Inpatient (IN) | payer MEDICARE, BC ==
[2024-03-14] MEDS: IPRATROPIUM-ALBUTEROL 3 ML NEB INHALATION STA (22:37)
[2024-03-14] MEDS: SODIUM CHLORIDE 0.9% 1,000 ML IV ONE (22:41)
[2024-03-14] MEDS: SODIUM CHLORIDE 0.9% 1,000 ML IV STA (22:41)
[2024-03-14 22:49] LABS: Basophils % (A) 0 %; Eosinophils # (A) 0.2 k/uL (0-0.7); Eosinophils % (A) 1 %; HCT 40.6 % (34.0-46.0); HGB 12.8 gm/dL (11.4-16.0); Lymphocytes # (A) 0.7 k/uL (1.0-4.8); Lymphocytes % (A) 3 %; MCH 28.5 pg (25.0-35.0); MCHC 31.5 g/dL (31.0-37.0); Mean Platelet Volume 9.9; Monocytes # (A) 0.6 k/uL (0-1.0); Monocytes % (A) 3 %; Neutrophils # (A) 20.5 k/uL (1.3-7.7); Neutrophils % (A) 92 %; Platelet Count 158 k/uL (150-450); RBC 4.49 m/uL (3.80-5.40); RDW 14.6 % (11.5-15.5); WBC 22.3 k/uL (3.8-10.6)
[2024-03-14] MEDS: MAGNESIUM SULFATE-D5W PMX 1 GM in DEXTROSE/WATER 1 100ML.BAG IVPB STA (22:50)
[2024-03-14 22:59] LABS: ALT 26 U/L (4-34); AST 39 U/L (14-36); African American GFR (CKD) 15 (>60 ml/min/1.73 sqM); Albumin 3.7 g/dL (3.5-5.0); Alkaline Phosphatase 179 U/L (38-126); Anion Gap 13 mmol/L; Blood Urea Nitrogen 84 mg/dL (7-17); Calcium 8.8 mg/dL (8.4-10.2); Carbon Dioxide 23 mmol/L (22-30); Chloride 95 mmol/L (98-107); Glucose 219 mg/dL (74-99); Magnesium 1.9 mg/dL (1.6-2.3); Non-African American GFR(CKD) 13 (>60 ml/min/1.73 sqM); Potassium 4.7 mmol/L (3.5-5.1); Sodium 131 mmol/L (137-145); Total Bilirubin 0.9 mg/dL (0.2-1.3); Total Protein 6.7 g/dL (6.3-8.2)
[2024-03-14 23:02] LABS: INR 0.9 (<1.2); Partial Thromboplastin Time 25.9 sec (22.0-30.0); Prothrombin Time 9.9 sec (10.0-12.5)
[2024-03-14 23:08] LABS: NT-Pro-B-Type Natriuretic Pept 7940 pg/mL
[2024-03-14 23:08] LABS: VBG PH 7.45 (7.31-7.41)
[2024-03-14 23:17] LABS: MCV 90.4 fL (80.0-100.0)
[2024-03-14] MEDS: methylPREDNISolone SOD SUCCI 40 MG/ML 1 ML VIAL IV SCH (23:17)
[2024-03-14] MEDS ORDERED: PNEUMONIA PROTOCOL UTILIZED 1 EACH MISC PO PRN (23:54)
[2024-03-15] MEDS: IPRATROPIUM-ALBUTEROL 3 ML NEB INHALATION SCH (00:16)
--- NOTE | 2024-03-15 00:58 | ED ---
General Adult HPI - General Chief complaint: Shortness of Breath Stated complaint: SOB Time Seen by Provider: 03/14/24 22:33 Source: patient, RN notes reviewed, old records reviewed Mode of arrival: EMS Limitations: no limitations - History of Present Illness Initial comments: Patient is an 88-year-old female presents emergency department complaining of shortness of breath. Was found in respiratory distress by EMS prior to arrival. Was saturating 70 to 81% on 5 L nasal cannula. Patient is typically on 2 to 3 L nasal cannula. Has a history of heart failure, COPD, diabetes, hypertension. States she has been having increased shortness of breath over the last few days, worse lately. Presents for further evaluation at this time. Does endorse a cough but no significant productive cough. Denies worsening lower extremity edema and states that it is actually improved. Denies orthopnea. Denies PND. Presents for further evaluation at this time. Was placed on CPAP prior to arrival. - Related Data Home Medications Medication Instructions Recorded Confirmed Ergocalciferol (Vitamin D2) 1,250 mcg PO APPIAH 10/08/23 02/05/24 [Drisdol (50,000 Iu)] Albuterol Sulfate [Albuterol 2 puff INHALATION RT-Q6H 11/02/23 02/05/24 Sulfate Hfa] Atorvastatin [Lipitor] 20 mg PO DAILY 11/02/23 02/05/24 Omeprazole 20 mg PO DAILY 11/02/23 02/05/24 rOPINIRole HCL [Requip] 4 mg PO BID 11/02/23 02/05/24 DULoxetine HCL [Cymbalta] 60 mg PO BID 11/26/23 02/05/24 Furosemide [Lasix] 40 mg PO BID@0800,1600 11/26/23 02/05/24 Insulin Lispro [Insulin Lispro See Protocol SQ AC-TID 11/26/23 02/05/24 Kwikpen U-100] Ipratropium-Albuterol Nebulize 3 ml INHALATION RT-BID 11/26/23 02/05/24 [Duoneb 0.5 mg-3 mg/3 ml Soln] Aspirin EC [Ecotrin Low Dose] 81 mg PO DAILY 12/14/23 02/05/24 Insulin Glargine-Yfgn 22 units SQ HS 01/23/24 02/05/24 Insulin Lispro [Insulin Lispro 4 unit SQ AC-TID 01/23/24 02/05/24 Kwikpen U-100] glipiZIDE [Glucotrol] 5 mg PO AC-BRKFST 01/27/24 02/05/24 Previous Rx's Medication Instructions Recorded Potassium Chloride ER [K-Dur 20] 40 meq PO BID tab 10/19/23 Collagenase [Santyl Ointment] 1 applic TOPICAL DAILY each 11/06/23 carvediloL [Coreg*] 12.5 mg PO BID-W/MEALS #60 tab 12/15/23 hydrALAZINE HCL [Apresoline] 50 mg PO BID #60 tab 12/15/23 Dapagliflozin Propanediol [Farxiga] 10 mg PO DAILY #30 tab 02/08/24 NIFEdipine XL [Procardia XL] 90 mg PO DAILY #30 tab 02/08/24 Allergies Allergy/AdvReac Type Severity Reaction Status Date / Time No Known Allergies Allergy Verified 02/05/24 19:13 Review of Systems ROS Statement: Those systems with pertinent positive or pertinent negative responses have been documented in the HPI. Review of Systems: CONST: Denies fever EYES: Denies blurry vision ENT: Denies nasal congestion C/V: Denies Chest pain RESP: Endorses shortness of breath GI: Denies abdominal pain : Denies dysuria SKIN: Denies rash. MSK: Denies joint pain. NEURO: Denies headache ROS Other: All systems not noted in ROS Statement are negative. Past Medical History Past Medical History: Heart Failure, Diabetes Mellitus, Hypertension, Pneumonia Additional Past Medical History / Comment(s): new CHF 09/2023, "kidney , home oxygen@3L/min History of Any Multi-Drug Resistant Organisms: ESBL Date of last positivie culture/infection: 11/26/23 MDRO Source:: Blood Past Surgical History: Hysterectomy Additional Past Surgical History / Comment(s): R hip, cataract sx Past Anesthesia/Blood Transfusion Reactions: No Reported Reaction Past Psychological History: No Psychological Hx Reported Smoking Status: Never smoker Past Alcohol Use History: None Reported Past Drug Use History: None Reported - Past Family History Mother Family Medical History: Hypertension General Exam - General Exam Comments Initial Comments: General: Appears in respiratory distress. HEAD: Normal with no signs of head trauma. EYES: PERRLA, EOMI, conjunctiva normal, no discharge. ENT: Hearing grossly intact, normal oropharynx. RESPIRATORY: Increased work of breathing, tight breath sounds bilaterally. Mild end expiratory wheezing. C/V: Regular rate and rhythm. S1 and S2 auscultated, no significant lower extremity pitting edema, peripheral pulses 2+ and intact throughout ABD: Abd is soft, nontender, nondistended EXT: Normal range of motion, no obvious deformity SKIN: No rashes or lesions observed on exposed skin. NEURO: Alert and oriented x 4. Limitations: no limitations Course Vital Signs 03/14/24 03/14/24 03/14/24 22:35 22:37 22:38 Temperature 96.9 F L Pulse Rate 63 64 Respiratory 28 H 28 H Rate Blood Pressure 88/58 O2 Sat by Pulse 99 Oximetry Fraction of 100 Inspired Oxygen (FIO2) 03/14/24 03/14/24 03/14/24 22:55 23:08 23:10 Temperature Pulse Rate 62 60 Respiratory 26 H Rate Blood Pressure 95/57 O2 Sat by Pulse 98 Oximetry Fraction of 60 Inspired Oxygen (FIO2) 03/15/24 03/15/24 03/15/24 00:15 00:16 00:28 Temperature Pulse Rate 56 L 58 L Respiratory Rate Blood Pressure O2 Sat by Pulse Oximetry Fraction of 40 Inspired Oxygen (FIO2) 03/15/24 01:22 Temperature Pulse Rate 57 L Respiratory 17 Rate Blood Pressure 86/52 O2 Sat by Pulse 97 Oximetry Fraction of Inspired Oxygen (FIO2) Medical Decision Making - Medical Decision Making Was pt. sent in by a medical professional or institution (, PA, MEDICAL RECORDS CLERK, urgent care, hospital, or [facility]...) When possible be specific @ -No Did you speak to anyone other than the patient for history (EMS, parent, family, police, friend...)? What history was obtained from this source @ -No Did you review nursing and triage notes (agree or disagree)? Why? @ -I reviewed and agree with nursing and triage notes Were old charts reviewed (outside hosp., previous admission, EMS record, old EKG, old radiological studies, urgent care reports/EKG's, [facility] records)? Report findings @ -Chart including EKG from January 2024 reviewed. EKG when compared with today's EKG unchanged. Differential Diagnosis (chest pain, altered mental status, abdominal pain women, abdominal pain men, vaginal bleeding, weakness, fever, dyspnea, syncope, headache, dizziness, GI bleed, back pain, seizure, CVA, palpatations, mental health, musculoskeletal)? @ -Differential Dyspnea: Coronary syndrome, arrhythmia, tamponade, asthma, COPD, pulmonary embolism, pneumonia, pneumothorax, pulmonary effusion, anaphylaxis, diabetic ketoacidosis, flailed chest, pulmonary contusion, diaphragmatic rupture, anemia, neuromuscular, this is not meant to be an all-inclusive list. EKG interpreted by me (3pts min.). @ -As above X-rays interpreted by me (1pt min.). @ -X-ray shows possible right-sided pneumonia although overall poor inspiratory film. Seems the right-sided findings are worse than on previous. CT interpreted by me (1pt min.). @ -None done U/S interpreted by me (1pt. min.). @ -None done What testing was considered but not performed or refused? (CT, X-rays, U/S, labs)? Why? @ -None What meds were considered but not given or refused? Why? @ -None Did you discuss the management of the patient with other professionals (professionals i.e. , PA, MEDICAL RECORDS CLERK, lab, RT, psych nurse, social insurance analyst, tint layer, teacher, surveillance dual rate officer, outsole caser)? Give summary @ -Discussed with pulmonology team, Hua who works with Dr. Grijalva who agreed to evaluate the patient. Spoke with the admitting physician, Dr. Aranda who accepted the admission. Was smoking cessation discussed for >3mins.? @ -No Was critical care preformed (if so, how long)? @ -Yes, 32 minutes. Were there social determinants of health that impacted care today? How? (Homelessness, low income, unemployed, alcoholism, drug addiction, transportation, low edu. Level, literacy, decrease access to med. care, group home, rehab)? @ -No Was there de-escalation of care discussed even if they declined (Discuss DNR or withdrawal of care, Hospice)? DNR status @ -No What co-morbidities impacted this encounter? (DM, HTN, Smoking, COPD, CAD, Cancer, CVA, ARF, Chemo, Hep., AIDS, mental health diagnosis, sleep apnea, morbid obesity)? @ -COPD, CHF Was patient admitted / discharged? Hospital course, mention meds given and route, prescriptions, significant lab abnormalities, going to OR and other pertinent info. @ -Based on patient's presentation and physical exam, presents with acute hypoxic respiratory failure requiring noninvasive positive pressure ventilation. She was transitioned to BiPAP immediately and was doing well. Borderline soft blood pressures and patient appears clinically dehydrated therefore given IV fluids. Patient does have a history of CHF however denies clinical symptoms of a CHF exacerbation including orthopnea, PND, worsening lower extremity edema. Exam is most remarkable for suspected COPD exacerbation considering the tightness found in her lungs. We will treat this initially. Patient was in agreement this plan. She will receive IV steroids prior to arrival by EMS. Will administer DuoNeb, as well as a small fluid bolus, and continue to monitor symptoms. Patient in agreement this plan. Patient's labs remarkable for leukocytosis of 22, and REJI with a BUN of 84 and creatinine 3.15, as well as lactic acidosis of 2.3. BNP is elevated to 7940. I do suspect that symptoms are still likely infectious such as pneumonia, dehydration as well as COPD and hypoxia. She is resting comfortably at this time. We will continue to monitor patient's volume status and therefore she will not be bolused large amounts of fluids unless it is required. She was resting comfortably at this time. She was in agreement this plan. Will continue with IV steroids, breathing treatments and patient was initiated on IV antibiotics for pneumonia. Blood cultures ordered. Will continue therapy with BiPAP. I did discuss at length the patient as well as patient's daughter that this co uld be most likely COPD as well as pneumonia but cannot definitively rule out CHF. We will administer her current therapy and continue to monitor. She was in agreement this plan. Cardiology and pulmonology will be consulted. I spoke with the admitting physician, Dr. Aranda who accepted the admission. Undiagnosed new problem with uncertain prognosis? @ -No Drug Therapy requiring intensive monitoring for toxicity (Heparin, Nitro, Insulin, Cardizem)? @ -No Were any procedures done? @ -No Diagnosis/symptom? @ -Hypoxic respiratory failure, COPD, pneumonia, CHF Acute, or Chronic, or Acute on Chronic? @ -Acute Uncomplicated (without systemic symptoms) or Complicated (systemic symptoms)? @ -Complicated Side effects of treatment? @ -No Exacerbation, Progression, or Severe Exacerbation? @ -No Poses a threat to life or bodily function? How? (Chest pain, [place], [place], pneumonia, PE, COPD, DKA, ARF, appy, cholecystitis, CVA, Diverticulitis, Homicidal, Suicidal, threat to staff... and all critical care pts) @ -Yes - Lab Data Result diagrams: 03/14/24 22:41 03/14/24 22:41 Lab Results 03/14/24 03/14/24 03/14/24 Range/Units 22:41 22:41 22:41 WBC 22.3 H (3.8-10.6) k/uL RBC 4.49 (3.80-5.40) m/uL Hgb 12.8 (11.4-16.0) gm/dL Hct 40.6 (34.0-46.0) % MCV 90.4 D (80.0-100.0) fL MCH 28.5 (25.0-35.0) pg MCHC 31.5 (31.0-37.0) g/dL RDW 14.6 (11.5-15.5) % Plt Count 158 (150-450) k/uL MPV 9.9 Neutrophils % 92 % Lymphocytes % 3 % Monocytes % 3 % Eosinophils % 1 % Basophils % 0 % Neutrophils # 20.5 H (1.3-7.7) k/uL Lymphocytes # 0.7 L (1.0-4.8) k/uL Monocytes # 0.6 (0-1.0) k/uL Eosinophils # 0.2 (0-0.7) k/uL Basophils # 0.0 (0-0.2) k/uL PT 9.9 L (10.0-12.5) sec INR 0.9 (<1.2) APTT 25.9 (22.0-30.0) sec VBG pH (7.31-7.41) VBG pCO2 (37-51) mmHg VBG HCO3 (24-28) mmol/L Sodium 131 L (137-145) mmol/L Potassium 4.7 (3.5-5.1) mmol/L Chloride 95 L (98-107) mmol/L Carbon Dioxide 23 (22-30) mmol/L Anion Gap 13 mmol/L BUN 84 H (7-17) mg/dL Creatinine 3.15 H (0.52-1.04) mg/dL Est GFR (CKD-EPI)AfAm 15 (>60 ml/min/1.73 sqM) Est GFR (CKD-EPI)NonAf 13 (>60 ml/min/1.73 sqM) Glucose 219 H (74-99) mg/dL Lactic Ac Sepsis Rflx Plasma Lactic Acid Luis M (0.7-2.0) mmol/L Calcium 8.8 (8.4-10.2) mg/dL Magnesium 1.9 (1.6-2.3) mg/dL Total Bilirubin 0.9 (0.2-1.3) mg/dL AST 39 H (14-36) U/L ALT 26 (4-34) U/L Alkaline Phosphatase 179 H (38-126) U/L NT-Pro-B Natriuret Pep 7940 pg/mL Total Protein 6.7 (6.3-8.2) g/dL Albumin 3.7 (3.5-5.0) g/dL Influenza Type A (PCR) (Not Detectd) Influenza Type B (PCR) (Not Detectd) RSV (PCR) (Not Detectd) SARS-CoV-2 (PCR) (Not Detectd) 03/14/24 03/14/24 03/14/24 Range/Units 22:41 22:41 22:54 WBC (3.8-10.6) k/uL RBC (3.80-5.40) m/uL Hgb (11.4-16.0) gm/dL Hct (34.0-46.0) % MCV (80.0-100.0) fL MCH (25.0-35.0) pg MCHC (31.0-37.0) g/dL RDW (11.5-15.5) % Plt Count (150-450) k/uL MPV Neutrophils % % Lymphocytes % % Monocytes % % Eosinophils % % Basophils % % Neutrophils # (1.3-7.7) k/uL Lymphocytes # (1.0-4.8) k/uL Monocytes # (0-1.0) k/uL Eosinophils # (0-0.7) k/uL Basophils # (0-0.2) k/uL PT (10.0-12.5) sec INR (<1.2) APTT (22.0-30.0) sec VBG pH 7.45 H (7.31-7.41) VBG pCO2 37 (37-51) mmHg VBG HCO3 25 (24-28) mmol/L Sodium (137-145) mmol/L Potassium (3.5-5.1) mmol/L Chloride (98-107) mmol/L Carbon Dioxide (22-30) mmol/L Anion Gap mmol/L BUN (7-17) mg/dL Creatinine (0.52-1.04) mg/dL Est GFR (CKD-EPI)AfAm (>60 ml/min/1.73 sqM) Est GFR (CKD-EPI)NonAf (>60 ml/min/1.73 sqM) Glucose (74-99) mg/dL Lactic Ac Sepsis Rflx Plasma Lactic Acid Luis M 2.3 H* (0.7-2.0) mmol/L Calcium (8.4-10.2) mg/dL Magnesium (1.6-2.3) mg/dL Total Bilirubin (0.2-1.3) mg/dL AST (14-36) U/L ALT (4-34) U/L Alkaline Phosphatase (38-126) U/L NT-Pro-B Natriuret Pep pg/mL Total Protein (6.3-8.2) g/dL Albumin (3.5-5.0) g/dL Influenza Type A (PCR) Not Detected (Not Detectd) Influenza Type B (PCR) Not Detected (Not Detectd) RSV (PCR) Not Detected (Not Detectd) SARS-CoV-2 (PCR) Not Detected (Not Detectd) 03/14/24 Range/Units 23:02 WBC (3.8-10.6) k/uL RBC (3.80-5.40) m/uL Hgb (11.4-16.0) gm/dL Hct (34.0-46.0) % MCV (80.0-100.0) fL MCH (25.0-35.0) pg MCHC (31.0-37.0) g/dL RDW (11.5-15.5) % Plt Count (150-450) k/uL MPV Neutrophils % % Lymphocytes % % Monocytes % % Eosinophils % % Basophils % % Neutrophils # (1.3-7.7) k/uL Lymphocytes # (1.0-4.8) k/uL Monocytes # (0-1.0) k/uL Eosinophils # (0-0.7) k/uL Basophils # (0-0.2) k/uL PT (10.0-12.5) sec INR (<1.2) APTT (22.0-30.0) sec VBG pH (7.31-7.41) VBG pCO2 (37-51) mmHg VBG HCO3 (24-28) mmol/L Sodium (137-145) mmol/L Potassium (3.5-5.1) mmol/L Chloride (98-107) mmol/L Carbon Dioxide (22-30) mmol/L Anion Gap mmol/L BUN (7-17) mg/dL Creatinine (0.52-1.04) mg/dL Est GFR (CKD-EPI)AfAm (>60 ml/min/1.73 sqM) Est GFR (CKD-EPI)NonAf (>60 ml/min/1.73 sqM) Glucose (74-99) mg/dL Lactic Ac Sepsis Rflx Y Plasma Lactic Acid Luis M (0.7-2.0) mmol/L Calcium (8.4-10.2) mg/dL Magnesium (1.6-2.3) mg/dL Total Bilirubin (0.2-1.3) mg/dL AST (14-36) U/L ALT (4-34) U/L Alkaline Phosphatase (38-126) U/L NT-Pro-B Natriuret Pep pg/mL Total Protein (6.3-8.2) g/dL Albumin (3.5-5.0) g/dL Influenza Type A (PCR) (Not Detectd) Influenza Type B (PCR) (Not Detectd) RSV (PCR) (Not Detectd) SARS-CoV-2 (PCR) (Not Detectd) - EKG Data -: EKG Interpreted by Me EKG Comments: 12-lead Electrocardiogram Interpretation Note EKG was reviewed and interpreted by myself. 12-lead ECG performed at 2241 is interpreted by me as revealing normal sinus rhythm at a rate of 64 beats per minute. Left axis deviation. OR interval is 171 ms, QRS duration is 123 ms. QTc is 4 to 19 ms.. There were no ST or T wave abnormalities to suggest myocardial ischemia or injury. R wave progression across the precordium was satisfactory. By my interpretation this EKG is non-diagnostic for acute ischemia. Compared with EKG from February 05, 2024 with no significant change. Critical Care Time Critical Care Time: Yes Total Critical Care Time: 32 Disposition Clinical Impression: COPD (chronic obstructive pulmonary disease), CHF (congestive heart failure), Pneumonia, Hypoxic respiratory failure Disposition: ADMITTED IP TO THIS [facility] Condition: Serious Time of Disposition: 00:00
[2024-03-15] MEDS: PIPERACILLIN-TAZOBACTAM 3.375 GM in SODIUM CHLORIDE 0.9% 100 ML IVPB ONE (01:29)
[2024-03-15] MEDS: AZITHROMYCIN 500 MG in SODIUM CHLORIDE 0.9% 250 ML IVPB STA (01:30)
[2024-03-15] MEDS: PIPERACILLIN-TAZOBACTAM 3.375 GM in SODIUM CHLORIDE 0.9% 100 ML IVPB STA (01:31)
--- NOTE | 2024-03-15 02:04 | XR ---
EXAM: XR Chest, 1 View CLINICAL HISTORY: XR Reason: dyspnea TECHNIQUE: Frontal view of the chest. COMPARISON: February 05, 2024 FINDINGS: Lungs: Pulmonary vasculature is engorged and indistinct with bilateral perihilar and bibasilar increased densities consistent with pulmonary edema or pneumonia. Pleural space: Unremarkable. No pneumothorax. Heart: The cardiac silhouette is moderately enlarged. Mediastinum: Unremarkable. Normal mediastinal contour. Bones/joints: Moderate degenerative changes in the right shoulder. No acute fracture. Vasculature: The aortic arch is mildly calcified, similar to previous. Upper abdomen: Unremarkable as visualized. No pneumoperitoneum under the diaphragm. IMPRESSION: 1. Pulmonary vasculature is engorged and indistinct with bilateral perihilar and bibasilar increased densities consistent with pulmonary edema or pneumonia. This is increased compared to previous. 2. The cardiac silhouette is moderately enlarged.
[2024-03-15] MEDS: SODIUM CHLORIDE 0.9% 1,000 ML IV STA (03:01)
--- NOTE | 2024-03-15 04:01 | P.HPIM ---
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 History was supplemented by the patient's daughter at the bedside. She notes that over the past 3 to 4 days, the patient has been complaining of increasing shortness of breath and has been somewhat confused. She also has had decreased oral intake during this time. The patient denied experiencing chest discomfort, fever, chills, nausea, vomiting, abdominal pain, diarrhea. Chest x-ray in the emergency room revealed bilateral opacities concerning for atypical pneumonia versus edema. EKG revealed sinus rhythm at 64 bpm with a low anterior fascicular block with evidence of LVH and poor R wave progression as reviewed by me. Laboratory evaluation was remarkable for leukocytosis of 22.3, sodium 131, chloride 95, BUN 84, creatinine 3.15 (baseline 1.4), lactic acid 2.3, and proBNP 7940 (baseline 1200). The patient's blood pressure was somewhat low at the time of interview, 91/58. ED documentation reviewed and case discussed with ED provider. Review of systems: Pertinent positives and negatives as discussed in HPI, a complete review of systems was performed and all other systems are negative. Physical examination: Vital signs reviewed General: Elderly female on BiPAP, non toxic, no distress, appears at stated age, normal weight Derm: no unusual rashes/lesions, warm Head: atraumatic, normocephalic, symmetric Eyes: EOMI, no lid lag, anicteric sclera, pupils equal round reactive to light ENT: Nose and ears atraumatic Neck: No cervical lymphadenopathy, trachea midline, supple Mouth: no lip lesion, mucus membranes moist Cardiovascular: S1S2 reg, no murmur, positive dorsalis pedis pulse bilateral, somewhat poor air entry bilaterally with bibasilar rales Lungs: CTA bilateral, no rhonchi, no rales, no accessory muscle use Abdominal: soft, nontender to palpation, no guarding Ext: muscle strength 5 out of 5 in all 4 extremities grossly, no gross muscle atrophy, no contractures, Neuro: CN II-XI grossly intact, no gross focal neuro deficits Psych: Awake, oriented to person and partially to place only, not oriented to time Assessment: Acute on chronic hypoxic respiratory failure, suspect multifactorial secondary to acute CHF and COPD exacerbations REJI Lactic acidosis Leukocytosis, suspect due to acute stressor with no signs of active infection at this time Chronic conditions: Severe MR and TR, type II DM, hypertension Imaging: Chest x-ray in the emergency room revealed bilateral opacities concerning for atypical pneumonia versus edema. EKG revealed sinus rhythm at 64 bpm with a low anterior fascicular block with evidence of LVH and poor R wave progression as reviewed by me. Data Review: Laboratory evaluation was remarkable for leukocytosis of 22.3, sodium 131, chloride 95, BUN 84, creatinine 3.15 (baseline 1.4), lactic acid 2.3, and proBNP 7940 (baseline 1200). The patient's blood pressure was somewhat low at the time of interview, 91/58. Plan: Continue with DuoNebs [id number] and as needed Continue Solu-Medrol 40 mg every 8 hourly Pulmonary consulted Cardiology consulted Continue patient on BiPAP at this time Cardiac monitoring Obtain blood, sputum, and Legionella cultures Monitor lactic acid levels for resolution Follow-up BMP and CBC Insulin sliding scale blood glucose monitoring Continue with IV fluids for now in light of borderline BP at normal saline 50 cc/h DVT prophylaxis: Heparin subcu The patient is admitted with an anticipated greater than 2 midnight stay for evaluation of hypoxic respiratory failure CODE STATUS: Full Code Discussed with: Patient Anticipated discharge place: Home Past Medical History Past Medical History: Heart Failure, Diabetes Mellitus, Hypertension, Pneumonia Additional Past Medical History / Comment(s): new CHF 09/2023, "kidney , home oxygen@3L/min History of Any Multi-Drug Resistant Organisms: ESBL Date of last positivie culture/infection: 11/26/23 MDRO Source:: Blood Past Surgical History: Hysterectomy Additional Past Surgical History / Comment(s): R hip, cataract sx Past Anesthesia/Blood Transfusion Reactions: No Reported Reaction Past Psychological History: No Psychological Hx Reported Smoking Status: Never smoker Past Alcohol Use History: None Reported Past Drug Use History: None Reported - Past Family History Mother Family Medical History: Hypertension Medications and Allergies Home Medications Medication Instructions Recorded Confirmed Type RX: Ergocalciferol (Vitamin D2) 1,250 mcg PO APPIAH 10/08/23 02/05/24 History [Drisdol (50,000 Iu)] RX: Potassium Chloride ER [K-Dur 40 meq PO BID tab 10/19/23 02/05/24 Rx 20] RX: Albuterol Sulfate [Albuterol 2 puff INHALATION RT-Q6H 11/02/23 02/05/24 History Sulfate Hfa] RX: Atorvastatin [Lipitor] 20 mg PO DAILY 11/02/23 02/05/24 History RX: Omeprazole 20 mg PO DAILY 11/02/23 02/05/24 History RX: rOPINIRole HCL [Requip] 4 mg PO BID 11/02/23 02/05/24 History RX: Collagenase [Santyl Ointment] 1 applic TOPICAL DAILY each 11/06/23 02/05/24 Rx RX: DULoxetine HCL [Cymbalta] 60 mg PO BID 11/26/23 02/05/24 History RX: Furosemide [Lasix] 40 mg PO BID@0800,1600 11/26/23 02/05/24 History RX: Insulin Lispro [Insulin Lispro See Protocol SQ AC-TID 11/26/23 02/05/24 History Kwikpen U-100] RX: Ipratropium-Albuterol Nebulize 3 ml INHALATION RT-BID 11/26/23 02/05/24 History [Duoneb 0.5 mg-3 mg/3 ml Soln] RX: Aspirin EC [Ecotrin Low Dose] 81 mg PO DAILY 12/14/23 02/05/24 History RX: carvediloL [Coreg*] 12.5 mg PO BID-W/MEALS #60 tab 12/15/23 02/05/24 Rx RX: hydrALAZINE HCL [Apresoline] 50 mg PO BID #60 tab 12/15/23 02/05/24 Rx RX: Insulin Glargine-Yfgn 22 units SQ HS 01/23/24 02/05/24 History RX: Insulin Lispro [Insulin Lispro 4 unit SQ AC-TID 01/23/24 02/05/24 History Kwikpen U-100] RX: glipiZIDE [Glucotrol] 5 mg PO AC-BRKFST 01/27/24 02/05/24 History RX: Dapagliflozin Propanediol 10 mg PO DAILY #30 tab 02/08/24 Rx [Farxiga] RX: NIFEdipine XL [Procardia XL] 90 mg PO DAILY #30 tab 02/08/24 Rx Allergies Allergy/AdvReac Type Severity Reaction Status Date / Time No Known Allergies Allergy Verified 02/05/24 19:13 Physical Exam Vitals: Vital Signs Temp Pulse Resp BP Pulse Ox FiO2 03/15/24 03:36 56 L 03/15/24 03:26 56 L 40 03/15/24 02:52 54 L 20 91/58 95 03/15/24 01:22 57 L 17 86/52 97 03/15/24 00:28 58 L 03/15/24 00:16 40 03/15/24 00:15 56 L 03/14/24 23:10 60 03/14/24 23:08 60 26 H 95/57 98 03/14/24 22:55 62 03/14/24 22:38 28 H 03/14/24 22:37 64 03/14/24 22:35 96.9 F L 63 28 H 88/58 99 100 Intake and Output 03/14/24 03/14/24 03/15/24 14:59 22:59 06:59 Other: Weight 52.163 kg Results CBC & Chem 7: 03/14/24 22:41 03/14/24 22:41 Labs: Abnormal Lab Results - Last 24 Hours (Table) 03/14/24 03/14/24 03/14/24 Range/Units 22:41 22:41 22:41 WBC 22.3 H (3.8-10.6) k/uL Neutrophils # 20.5 H (1.3-7.7) k/uL Lymphocytes # 0.7 L (1.0-4.8) k/uL PT 9.9 L (10.0-12.5) sec VBG pH (7.31-7.41) Sodium 131 L (137-145) mmol/L Chloride 95 L (98-107) mmol/L BUN 84 H (7-17) mg/dL Creatinine 3.15 H (0.52-1.04) mg/dL Glucose 219 H (74-99) mg/dL Plasma Lactic Acid Luis M (0.7-2.0) mmol/L AST 39 H (14-36) U/L Alkaline Phosphatase 179 H (38-126) U/L 03/14/24 03/14/24 Range/Units 22:41 22:54 WBC (3.8-10.6) k/uL Neutrophils # (1.3-7.7) k/uL Lymphocytes # (1.0-4.8) k/uL PT (10.0-12.5) sec VBG pH 7.45 H (7.31-7.41) Sodium (137-145) mmol/L Chloride (98-107) mmol/L BUN (7-17) mg/dL Creatinine (0.52-1.04) mg/dL Glucose (74-99) mg/dL Plasma Lactic Acid Luis M 2.3 H* (0.7-2.0) mmol/L AST (14-36) U/L Alkaline Phosphatase (38-126) U/L
[2024-03-15 04:32] LABS: HCT 36.6 % (34.0-46.0); HGB 11.5 gm/dL (11.4-16.0); MCH 28.7 pg (25.0-35.0); MCHC 31.4 g/dL (31.0-37.0); MCV 91.3 fL (80.0-100.0); Mean Platelet Volume 9.5; Platelet Count 141 k/uL (150-450); RBC 4.01 m/uL (3.80-5.40); RDW 14.6 % (11.5-15.5); WBC 17.3 k/uL (3.8-10.6)
[2024-03-15 04:49] LABS: Glucose,Whole Blood 216 mg/dL (70-110)
[2024-03-15 04:51] LABS: African American GFR (CKD) 14 (>60 ml/min/1.73 sqM); Anion Gap 13 mmol/L; Blood Urea Nitrogen 83 mg/dL (7-17); Calcium 8.3 mg/dL (8.4-10.2); Carbon Dioxide 21 mmol/L (22-30); Chloride 98 mmol/L (98-107); Glucose 218 mg/dL (74-99); Non-African American GFR(CKD) 12 (>60 ml/min/1.73 sqM); Potassium 4.7 mmol/L (3.5-5.1); Sodium 132 mmol/L (137-145)
--- NOTE | 2024-03-15 05:20 | P.CNPUL ---
History of Present Illness Consult date: 03/15/24 Requesting physician: Antonio Erickson Reason for consult: COPD, hypoxemia Chief complaint: Shortness of breath and hypoxia History of present illness: Patient is an 88-year-old female with past medical history significant for congestive heart failure, chronic hypoxemic respiratory failure, diabetes mellitus, chronic kidney disease, hypertension, hyperlipidemia, and previous right-sided hip fracture. Of note, patient has had multiple hospitalizations for exacerbation of heart failure so far this year. Most recent echocardiogram taken 10/17/2023 estimates a preserved left ventricular ejection fraction of 55 to 60% with significant valvular heart disease including moderate to severe mitr al regurgitation, moderate to severe tricuspid regurgitation, and severe pulmonary hypertension. Most recently, hospitalized from 01/23/2024 through 02/08/2024 for similar presentation. She was diuresed with Lasix, and eventually discharged home with home health care. Patient is currently at home l iving with her daughter, who is at bedside, and provides most of the information. Over the last 2 days, her daughter noticed her mother to be more short of breath than normal and also intermittently confused at times. There has been a minimal nonproductive cough. Denies fevers, sputum production, chest pain. No nausea, vomiting, diarrhea. Admits reduced oral intake. No known recent sick contacts. Patient's lower extremity swelling is persistent but reportedly slightly improved. Denies missing any doses of Lasix while at home. During the night, pulse oximeter was reading low at home, and her daughter called EMS. When EMS arrived, the patient was noted to be in respiratory distress. SpO2 was reading 70 to 80% on 5 L nasal cannula. She is normally on 2 to 3 L chronically at home. Patient denies history of COPD/asthma. On arrival to the emergency room, patient was placed on BiPAP, current settings are 12/5 and FiO2 of 40%. On my evaluation, the patient appears comfortable. Respi ratory rate is in the mid 20s, and she is generating tidal volumes of around 500. VBG has a pCO2 of 37 and pH of 7.45. She is currently alert and oriented. SpO2 is 95%. Blood pressure was borderline on admission, and she was fluid resuscitated with 2 L of normal saline. Most recent reading 91/58 mmHg. Not requiring any vasopressors. Normal saline infusing at 50 MLS per hour. Chest x-ray taken on arrival shows cardiomegaly, increased pulmonary vascular congestion, as well as bilateral perihilar and bibasilar increased densities consistent with pulmonary edema or pneumonia. CBC: WBC count 22.3, hemoglobin 12.8, hematocrit 40.6, platelets 158. BMP: Sodium 131, potassium 4.7, chloride 95, serum bicarb 23, BUN of 84, creatinine 3.15, glucose 219. Lactic acid was 2.3 and is down to 1.6. LFTs mildly elevated. EKG shows normal sinus rhythm with a left anterior vascular block and left axis deviation. Previously, demonstrated Q wave changes in the anterior leads. NT proBNP 7940. Negative for influenza, RSV, COVID. Patient is currently afebrile. Empirically covered on a combination of azithromycin and Rocephin. Respiratory status is labile. Review of Systems REVIEW OF SYSTEMS: CONSTITUTIONAL: Denies any recent significant weight loss or weight gain. EYES: Denies change in vision. EARS, NOSE, MOUTH, THROAT: Denies headaches, denies sore throat. CARDIOVASCULAR: Denies chest pain, palpitations or syncopal episodes. RESPIRATORY: See HPI GASTROINTESTINAL: Denies abdominal pain, nausea and vomiting, or diarrhea. Admits reduced appetite GENITOURINARY: Denies hematuria, denies infections. MUSKULOSKELETAL: Denies pain, denies swelling. INTEGUMENTARY: Denies rash, denies eczema. NEUROLOGICAL: Denies recent memory loss, no recent seizure activity. PSYCHIATRIC: Denies anxiety, denies depression. HEMATOLOGIC/LYMPHATIC: Denies anemia, denies enlarged lymph node Past Medical History Past Medical History: Heart Failure, Diabetes Mellitus, Hypertension, Pneumonia Additional Past Medical History / Comment(s): new CHF 09/2023, "kidney , home oxygen@3L/min History of Any Multi-Drug Resistant Organisms: ESBL Date of last positivie culture/infection: 11/26/23 MDRO Source:: Blood Past Surgical History: Hysterectomy Additional Past Surgical History / Comment(s): R hip, cataract sx Past Anesthesia/Blood Transfusion Reactions: No Reported Reaction Past Psychological History: No Psychological Hx Reported Smoking Status: Never smoker Past Alcohol Use History: None Reported Past Drug Use History: None Reported - Past Family History Mother Family Medical History: Hypertension Medications and Allergies Home Medications Medication Instructions Recorded Confirmed Type Ergocalciferol (Vitamin D2) 1,250 mcg PO APPIAH 10/08/23 02/05/24 History [Drisdol (50,000 Iu)] Potassium Chloride ER [K-Dur 20] 40 meq PO BID tab 10/19/23 02/05/24 Rx Albuterol Sulfate [Albuterol 2 puff INHALATION RT-Q6H 11/02/23 02/05/24 History Sulfate Hfa] Atorvastatin [Lipitor] 20 mg PO DAILY 11/02/23 02/05/24 History Omeprazole 20 mg PO DAILY 11/02/23 02/05/24 History rOPINIRole HCL [Requip] 4 mg PO BID 11/02/23 02/05/24 History Collagenase [Santyl Ointment] 1 applic TOPICAL DAILY each 11/06/23 02/05/24 Rx DULoxetine HCL [Cymbalta] 60 mg PO BID 11/26/23 02/05/24 History Furosemide [Lasix] 40 mg PO BID@0800,1600 11/26/23 02/05/24 History Insulin Lispro [Insulin Lispro See Protocol SQ AC-TID 11/26/23 02/05/24 History Kwikpen U-100] Ipratropium-Albuterol Nebulize 3 ml INHALATION RT-BID 11/26/23 02/05/24 History [Duoneb 0.5 mg-3 mg/3 ml Soln] Aspirin EC [Ecotrin Low Dose] 81 mg PO DAILY 12/14/23 02/05/24 History carvediloL [Coreg*] 12.5 mg PO BID-W/MEALS #60 tab 12/15/23 02/05/24 Rx hydrALAZINE HCL [Apresoline] 50 mg PO BID #60 tab 12/15/23 02/05/24 Rx Insulin Glargine-Yfgn 22 units SQ HS 01/23/24 02/05/24 History Insulin Lispro [Insulin Lispro 4 unit SQ AC-TID 01/23/24 02/05/24 History Kwikpen U-100] glipiZIDE [Glucotrol] 5 mg PO AC-BRKFST 01/27/24 02/05/24 History Dapagliflozin Propanediol [Farxiga] 10 mg PO DAILY #30 tab 02/08/24 Rx NIFEdipine XL [Procardia XL] 90 mg PO DAILY #30 tab 02/08/24 Rx Allergies Allergy/AdvReac Type Severity Reaction Status Date / Time No Known Allergies Allergy Verified 02/05/24 19:13 Physical Exam Vitals: Vital Signs Temp Pulse Resp BP Pulse Ox FiO2 03/15/24 02:52 54 L 20 91/58 95 03/15/24 01:22 57 L 17 86/52 97 03/15/24 00:28 58 L 03/15/24 00:16 40 03/15/24 00:15 56 L 03/14/24 23:10 60 03/14/24 23:08 60 26 H 95/57 98 03/14/24 22:55 62 03/14/24 22:38 28 H 03/14/24 22:37 64 03/14/24 22:35 96.9 F L 63 28 H 88/58 99 100 Intake and Output 03/14/24 03/14/24 03/15/24 14:59 22:59 06:59 Other: Weight 52.163 kg GENERAL EXAM: Alert, 88-year-old white female appearing stated age, currently on BiPAP, fairly comfortable in no apparent distress. HEAD: Normocephalic and atraumatic EYES: Normal reaction of pupils, equal size. NOSE: Clear with pink turbinates. THROAT: No erythema or exudates. NECK: No masses, no JVD. CHEST: No chest wall deformity. LUNGS: Equal air entry with bibasilar inspiratory crackles. No wheeze, rhonchi or focal dullness. Currently on BiPAP with the previously mentioned settings 1 2/5 and FiO2 of 40%, generating tidal volumes of around 500, and respiratory rate is in the mid 20s. No conversational dyspnea or accessory muscle use. CVS: S1 and S2 normal with no audible murmur, regular rhythm. No extra heart sounds ABDOMEN: No hepatosplenomegaly, active bowel sounds, no guarding or rigidity. SPINE: No scoliosis or deformity SKIN: No rashes CENTRAL NERVOUS SYSTEM: No focal deficits, tone is normal in all 4 extremities. EXTREMITIES: There is mild bilateral lower extremity edema. Clubbing, or cyanosis. Peripheral pulses are intact. Results - Laboratory Findings CBC and BMP: 03/15/24 04:09 03/15/24 04:09 PT/INR, D-dimer PT 9.9 sec (10.0-12.5) L 03/14/24 22:41 INR 0.9 (<1.2) 03/14/24 22:41 Abnormal lab findings: Abnormal Labs 03/14/24 03/14/24 03/14/24 22:41 22:41 22:41 WBC 22.3 H Neutrophils # 20.5 H Lymphocytes # 0.7 L PT 9.9 L VBG pH Sodium 131 L Chloride 95 L BUN 84 H Creatinine 3.15 H Glucose 219 H Plasma Lactic Acid Luis M AST 39 H Alkaline Phosphatase 179 H 03/14/24 03/14/24 22:41 22:54 WBC Neutrophils # Lymphocytes # PT VBG pH 7.45 H Sodium Chloride BUN Creatinine Glucose Plasma Lactic Acid Luis M 2.3 H* AST Alkaline Phosphatase - Diagnostic Findings Chest x-ray: image reviewed Assessment and Plan Assessment: Acute on chronic hypoxemic respiratory failure, likely secondary to exacerbation of diastolic congestive heart failure, superimposed pneumonia is not entirely ruled out, however, felt to be less likely. Chest x-ray taken on arrival shows cardiomegaly, increased pulmonary vascular congestion, as well as, bilateral perihilar and bibasilar increased densities consistent with pulmonary edema or pneumonia. Chronic diastolic heart failure and valvular heart disease with moderate to se fatou mitral regurgitation, severe tricuspid regurgitation with secondary pulmonary hypertension. Left ventricular ejection fraction was estimated at 55 to 60% on most recent echocardiogram. 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 Cardiology has been also consulted. Patient did receive doses of empiric antibiotics in the emergency room. Blood cultures pending. Sputum culture ordered. Procalcitonin level pending We will continue to follow I have personally seen and examined the patient, performed the documentation and the assessment and plan as written. Number of minutes spent on the visit:20 Time with Patient: Greater than 30
[2024-03-15] MEDS: FUROSEMIDE 10 MG/ML 4 ML VIAL IV STA (07:42)
[2024-03-15] MEDS: HEPARIN SODIUM,PORCINE 5,000 UNIT/ML 1 ML VIAL SQ SCH (07:42)
[2024-03-15 08:06] LABS: Glucose,Whole Blood 220 mg/dL (70-110)
[2024-03-15] MEDS: INSULIN ASPART (NovoLOG) 100 UNIT/ML VIAL SQ SCH (08:08)
[2024-03-15] MEDS: FUROSEMIDE 10 MG/ML 10 ML VIAL IV SCH (08:45)
[2024-03-15] MEDS: ATORVASTATIN 20 MG TAB PO SCH (09:40)
[2024-03-15] MEDS: PANTOPRAZOLE 40 MG TABLET PO SCH (09:40)
[2024-03-15] MEDS: DULoxetine HCL 60 MG CAPSULE.DR PO SCH (09:40)
--- NOTE | 2024-03-15 10:11 | P.CRDCN ---
History of Present Illness Consult date: 03/15/24 Consult reason: congestive heart failure History of present illness: This is an 88-year-old female patient of Dr. Sebastian Gruber with past medical diabetes mellitus type 2, hypertension, dyslipidemia, mitral valve insufficiency, chronic diastolic heart failure. We have been asked to evaluate the patient for CHF. Patient states that she came into the hospital due to shortness of breath with breathing is a little bit better now. Patient is seen in the ER on BiPAP. She denies having any chest pain, no dizziness, no palpitations. She has no lower extremity edema. She denies having any wheezing at home. No nausea or vomiting. No blood in her stools. Patient had a recent hospitalization in January at which time she was seen by cardiology for acute on chronic heart failure with preserved EF. Patient is seen today in the emergency center waiting for a bed on the cardiac stepdown unit. She has been started on IV Lasix 60 mg every 8 hours. EKG sinus rhythm at 64 bpm left anterior fascicular block. Chest x-ray: Pulmonary vascular is engorged with bilateral perihilar and bibasilar increased densities consistent with pulmonary edema or pneumonia. Cardiac silhouette is moderately enlarged.. WBC 17.3, hemoglobin 11.5, platelet count 141. Sodium 132, potassium 4.7, BUN 83 creatinine 3.19. Lactic acid initially 2.3 and repeat 1.6. proBNP 7940 Home cardiac medications: atorvastatin 20 mg daily, Coreg 12.5 mg twice daily, Farxiga 10 mg daily, Lasix 40 mg twice daily, hydralazine 50 mg twice daily, Procardia XL 90 mg daily, potassium chloride 40 mill equivalents twice daily. Echocardiogram performed 10/09/2023 reveals normal LV function. Severe pulmonary hypertension. Moderate to severe mitral regurgitation. Moderate to severe tricuspid regurgitation. Review Of Systems: At the time of my exam: CONSTITUTIONAL: Denies fever or chills. HEENT: Denies blurred vision, vision changes, or eye pain. Denies hemoptysis CARDIOVASCULAR: Denies chest pain. Denies orthopnea. Denies PND. Denies palpitations RESPIRATORY: + shortness of breath. + Dyspnea on exertion GASTROINTESTINAL: Denies abdominal pain. Denies nausea or vomiting. HEMATOLOGIC: Denies bleeding disorders. GENITOURINARY: Denies any blood in urine. SKIN: Denies pruitis. Denies rash. Physical examination: Gen: This is a 88-year-old female in mild respiratory distress VS: reviewed, blood pressure 93/53, heart rate 58, pulse ox 96% on BiPAP. HEENT: Head is atraumatic, normocephalic. Pupils equal, round. Sclerae is anicteric. NECK: Supple. + Elevated JVD. LUNGS: Reveals to the bilateral one third of the lower lungs. HEART: Regular rate and rhythm. Holosystolic murmur at the apex. ABDOMEN: Soft No tenderness. EXTREMITIES: Trace bilateral lower extremity edema. No calf tenderness. NEUROLOGICAL: Patient is awake, alert and oriented x3. Assessment: Acute on chronic diastolic heart failure Acute kidney injury Hypertension, currently hypotensive Dyslipidemia Diabetes mellitus type 2 Moderate to severe mitral regurgitation Severe pulmonary hypertension Plan: Resume patient's home cardiac medications Continue IV Lasix 60 mg every 8 hours Monitor MARLENA, daily weights, electrolytes and renal function. Resume patient on Farxiga 10 mg daily once kidney function improves Obtain BNP in the morning No need to repeat echocardiogram as it was done in September Prognosis is poor. Consider palliative care. Further recommendations to follow based upon clinical course Thank you kindly for this consultation. Nurse practitioner note has been reviewed, I agree with documented findings and plan of care. Patient was seen and examined. Past Medical History Past Medical History: Heart Failure, Diabetes Mellitus, Hypertension, Pneumonia Additional Past Medical History / Comment(s): new CHF 09/2023, "kidney , home oxygen@3L/min History of Any Multi-Drug Resistant Organisms: ESBL Date of last positivie culture/infection: 11/26/23 MDRO Source:: Blood Past Surgical History: Hysterectomy Additional Past Surgical History / Comment(s): R hip, cataract sx Past Anesthesia/Blood Transfusion Reactions: No Reported Reaction Past Psychological History: No Psychological Hx Reported Smoking Status: Never smoker Past Alcohol Use History: None Reported Past Drug Use History: None Reported - Past Family History Mother Family Medical History: Hypertension Medications and Allergies Home Medications Medication Instructions Recorded Confirmed Type Ergocalciferol (Vitamin D2) 1,250 mcg PO APPIAH 10/08/23 03/15/24 History [Drisdol (50,000 Iu)] Potassium Chloride ER [K-Dur 20] 40 meq PO BID tab 10/19/23 03/15/24 Rx Albuterol Sulfate [Albuterol 2 puff INHALATION RT-Q6H 11/02/23 03/15/24 History Sulfate Hfa] Atorvastatin [Lipitor] 20 mg PO DAILY 11/02/23 03/15/24 History Omeprazole 20 mg PO DAILY 11/02/23 03/15/24 History rOPINIRole HCL [Requip] 4 mg PO BID 11/02/23 03/15/24 History Collagenase [Santyl Ointment] 1 applic TOPICAL DAILY each 11/06/23 03/15/24 Rx DULoxetine HCL [Cymbalta] 60 mg PO BID 11/26/23 03/15/24 History Furosemide [Lasix] 40 mg PO BID@0800,1600 11/26/23 03/15/24 History Insulin Lispro [Insulin Lispro See Protocol SQ AC-TID 11/26/23 03/15/24 History Kwikpen U-100] Ipratropium-Albuterol Nebulize 3 ml INHALATION RT-BID 11/26/23 03/15/24 History [Duoneb 0.5 mg-3 mg/3 ml Soln] carvediloL [Coreg*] 12.5 mg PO BID-W/MEALS #60 tab 12/15/23 03/15/24 Rx hydrALAZINE HCL [Apresoline] 50 mg PO BID #60 tab 12/15/23 03/15/24 Rx Insulin Glargine-Yfgn 8 units SQ HS 01/23/24 03/15/24 History glipiZIDE [Glucotrol] 5 mg PO AC-BRKFST 01/27/24 03/15/24 History Dapagliflozin Propanediol [Farxiga] 10 mg PO DAILY #30 tab 02/08/24 03/15/24 Rx NIFEdipine XL [Procardia XL] 90 mg PO DAILY #30 tab 02/08/24 03/15/24 Rx Cephalexin [Keflex] 500 mg PO BID 03/15/24 03/15/24 History Allergies Allergy/AdvReac Type Severity Reaction Status Date / Time No Known Allergies Allergy Verified 03/15/24 06:52 Physical Exam Vitals: Vital Signs Temp Pulse Pulse Resp BP BP Pulse Ox 03/15/24 07:46 58 L 03/15/24 07:36 03/15/24 07:33 56 L 03/15/24 07:31 58 L 17 93/53 96 03/15/24 07:29 96 03/15/24 04:36 56 L 21 93/55 94 L 03/15/24 03:36 56 L 03/15/24 03:26 56 L 03/15/24 02:52 54 L 20 91/58 95 03/15/24 01:22 57 L 17 86/52 97 03/15/24 00:28 58 L 03/15/24 00:16 03/15/24 00:15 56 L 03/14/24 23:10 03/14/24 23:08 60 26 H 95/57 98 03/14/24 22:55 62 03/14/24 22:38 28 H 03/14/24 22:37 64 03/14/24 22:35 96.9 F L 63 28 H 88/58 99 FiO2 03/15/24 07:46 03/15/24 07:36 40 03/15/24 07:33 03/15/24 07:31 03/15/24 07:29 40 03/15/24 04:36 03/15/24 03:36 03/15/24 03:26 40 03/15/24 02:52 03/15/24 01:22 03/15/24 00:28 03/15/24 00:16 40 03/15/24 00:15 03/14/24 23:10 60 03/14/24 23:08 03/14/24 22:55 03/14/24 22:38 03/14/24 22:37 03/14/24 22:35 100 Intake and Output 03/14/24 03/15/24 03/15/24 22:59 06:59 14:59 Other: Weight 52.163 kg Results 03/15/24 04:09 03/15/24 04:09 Cardiac Enzymes 03/14/24 Range/Units 22:41 AST 39 H (14-36) U/L Coagulation 03/14/24 Range/Units 22:41 PT 9.9 L (10.0-12.5) sec APTT 25.9 (22.0-30.0) sec CBC 03/14/24 03/15/24 Range/Units 22:41 04:09 WBC 22.3 H 17.3 H (3.8-10.6) k/uL RBC 4.49 4.01 (3.80-5.40) m/uL Hgb 12.8 11.5 (11.4-16.0) gm/dL Hct 40.6 36.6 (34.0-46.0) % Plt Count 158 141 L (150-450) k/uL Comprehensive Metabolic Panel 03/14/24 03/15/24 Range/Units 22:41 04:09 Sodium 131 L 132 L (137-145) mmol/L Potassium 4.7 4.7 (3.5-5.1) mmol/L Chloride 95 L 98 (98-107) mmol/L Carbon Dioxide 23 21 L (22-30) mmol/L BUN 84 H 83 H (7-17) mg/dL Creatinine 3.15 H 3.19 H (0.52-1.04) mg/dL Glucose 219 H 218 H (74-99) mg/dL Calcium 8.8 8.3 L (8.4-10.2) mg/dL AST 39 H (14-36) U/L ALT 26 (4-34) U/L Alkaline Phosphatase 179 H (38-126) U/L Total Protein 6.7 (6.3-8.2) g/dL Albumin 3.7 (3.5-5.0) g/dL Current Medications Generic Name Dose Route Start Last Admin Trade Name Freq PRN Reason Stop Dose Admin Albuterol/Ipratropium 3 ml 03/15/24 00:00 03/15/24 07:33 Ipratropium-Albuterol 3 Ml Neb INHALATION 3 ml RT-Q4H KATELIN Administration Albuterol/Ipratropium 3 ml 03/15/24 03:58 Ipratropium-Albuterol 3 Ml Neb INHALATION RT-QID PRN Shortness Of Breath Or Wheezing Atorvastatin Calcium 20 mg 03/15/24 09:00 Atorvastatin 20 Mg Tab PO DAILY KATELIN Duloxetine HCl 60 mg 03/15/24 09:00 Duloxetine Hcl 60 Mg Capsule.Dr PO DAILY [facility] Furosemide 60 mg 03/15/24 08:30 Furosemide 10 Mg/Ml 10 Ml Vial IV Q8HR [facility] Heparin Sodium (Porcine) 5,000 unit 03/15/24 09:00 03/15/24 07:42 Heparin Sodium,Porcine 5,000 Unit/Ml 1 Ml Vial SQ 5,000 unit Q12HR KATELIN Administration Insulin Aspart 0 unit 03/15/24 07:30 03/15/24 08:08 Insulin Aspart (Novolog) 100 Unit/Ml Vial SQ 4 unit ACHS KATELIN Administration Protocol Methylprednisolone Sodium Succinate 40 mg 03/15/24 00:00 03/15/24 07:43 Methylprednisolone Sod Succi 40 Mg/Ml 1 Ml Vial IV 40 mg Q8HR KATELIN Administration Miscellaneous Information 1 each 03/14/24 23:54 Pneumonia Protocol Utilized 1 Each Misc PO ONCE PRN Per Protocol Pantoprazole Sodium 40 mg 03/15/24 09:00 Pantoprazole 40 Mg Tablet PO AC-BRKFST KATELIN Ropinirole HCl 4 mg 03/15/24 09:00 Ropinirole Hcl 4 Mg Tablet PO BID KATELIN Intake and Output 03/14/24 03/15/24 03/15/24 22:59 06:59 14:59 Other: Weight 52.163 kg 03/15/24 04:09 03/15/24 04:09
[2024-03-15] MEDS: rOPINIRole HCL 4 MG TABLET PO SCH (10:18)
--- NOTE | 2024-03-15 10:43 | P.NPCON ---
History of Present Illness - Reason for Consult acute renal failure, chronic renal failure - History of Present Illness Reason for consultation: Acute kidney injury on chronic kidney disease History of present illness: Patient is a 88-year-old female seen in renal consultation for acute kidney injury on chronic kidney disease. Patient was seen and examined in the emergency room. Patient has chronic kidney disease stage IIIa with baseline creatinine 1.2-1.3 from January 2024. Creatinine this admission is 3.1. Patient is not a very reliable historian. Patient came to the hospital due to shortness of breath. She was found in respiratory distress and was hypoxic with oxygen saturations in the range of 70 to 80%. Patient does have history of COPD diabetes as well as hypertension. Patient denies history of coronary artery disease. Denies chest pain. Initially patient received a liter of normal saline bolus and was started on normal saline at 50 cc an hour. Now the fluids have been discontinued and she is receiving IV Lasix. Patient does have history of diastolic heart failure with mitral valve insufficiency. Vital signs are stable. General: No acute distress. HEENT: Head exam is unremarkable. On nasal cannula. LUNGS: No audible rhonchi or wheezes. HEART: Rate and Rhythm are regular. ABDOMEN: Nontender. EXTREMITITES: Trace edema. Past Medical History Past Medical History: Heart Failure, Diabetes Mellitus, Hypertension, Pneumonia Additional Past Medical History / Comment(s): new CHF 09/2023, "kidney , home oxygen@3L/min History of Any Multi-Drug Resistant Organisms: ESBL Date of last positivie culture/infection: 11/26/23 MDRO Source:: Blood Past Surgical History: Hysterectomy Additional Past Surgical History / Comment(s): R hip, cataract sx Past Anesthesia/Blood Transfusion Reactions: No Reported Reaction Past Psychological History: No Psychological Hx Reported Smoking Status: Never smoker Past Alcohol Use History: None Reported Past Drug Use History: None Reported - Past Family History Mother Family Medical History: Hypertension Medications and Allergies Home Medications Medication Instructions Recorded Confirmed Type Ergocalciferol (Vitamin D2) 1,250 mcg PO APPIAH 10/08/23 03/15/24 History [Drisdol (50,000 Iu)] Potassium Chloride ER [K-Dur 20] 40 meq PO BID tab 10/19/23 03/15/24 Rx Albuterol Sulfate [Albuterol 2 puff INHALATION RT-Q6H 11/02/23 03/15/24 History Sulfate Hfa] Atorvastatin [Lipitor] 20 mg PO DAILY 11/02/23 03/15/24 History Omeprazole 20 mg PO DAILY 11/02/23 03/15/24 History rOPINIRole HCL [Requip] 4 mg PO BID 11/02/23 03/15/24 History Collagenase [Santyl Ointment] 1 applic TOPICAL DAILY each 11/06/23 03/15/24 Rx DULoxetine HCL [Cymbalta] 60 mg PO BID 11/26/23 03/15/24 History Furosemide [Lasix] 40 mg PO BID@0800,1600 11/26/23 03/15/24 History Insulin Lispro [Insulin Lispro See Protocol SQ AC-TID 11/26/23 03/15/24 History Kwikpen U-100] Ipratropium-Albuterol Nebulize 3 ml INHALATION RT-BID 11/26/23 03/15/24 History [Duoneb 0.5 mg-3 mg/3 ml Soln] carvediloL [Coreg*] 12.5 mg PO BID-W/MEALS #60 tab 12/15/23 03/15/24 Rx hydrALAZINE HCL [Apresoline] 50 mg PO BID #60 tab 12/15/23 03/15/24 Rx Insulin Glargine-Yfgn 8 units SQ HS 01/23/24 03/15/24 History glipiZIDE [Glucotrol] 5 mg PO AC-BRKFST 01/27/24 03/15/24 History Dapagliflozin Propanediol [Farxiga] 10 mg PO DAILY #30 tab 02/08/24 03/15/24 Rx NIFEdipine XL [Procardia XL] 90 mg PO DAILY #30 tab 02/08/24 03/15/24 Rx Cephalexin [Keflex] 500 mg PO BID 03/15/24 03/15/24 History Allergies Allergy/AdvReac Type Severity Reaction Status Date / Time No Known Allergies Allergy Verified 03/15/24 06:52 Physical Exam Vitals: Vital Signs Temp Pulse Pulse Resp BP BP Pulse Ox 03/15/24 07:46 58 L 03/15/24 07:36 03/15/24 07:33 56 L 03/15/24 07:31 58 L 17 93/53 96 03/15/24 07:29 96 03/15/24 04:36 56 L 21 93/55 94 L 03/15/24 03:36 56 L 03/15/24 03:26 56 L 03/15/24 02:52 54 L 20 91/58 95 03/15/24 01:22 57 L 17 86/52 97 03/15/24 00:28 58 L 03/15/24 00:16 03/15/24 00:15 56 L 03/14/24 23:10 03/14/24 23:08 60 26 H 95/57 98 03/14/24 22:55 62 03/14/24 22:38 28 H 03/14/24 22:37 64 03/14/24 22:35 96.9 F L 63 28 H 88/58 99 FiO2 03/15/24 07:46 03/15/24 07:36 40 03/15/24 07:33 03/15/24 07:31 03/15/24 07:29 40 03/15/24 04:36 03/15/24 03:36 03/15/24 03:26 40 03/15/24 02:52 03/15/24 01:22 03/15/24 00:28 03/15/24 00:16 40 03/15/24 00:15 03/14/24 23:10 60 03/14/24 23:08 03/14/24 22:55 03/14/24 22:38 03/14/24 22:37 03/14/24 22:35 100 Intake and Output 03/14/24 03/15/24 03/15/24 22:59 06:59 14:59 Intake Total 240 Balance 240 Intake: Oral 240 Other: Weight 52.163 kg Results - Lab Results Most recent lab results Calcium 8.3 mg/dL (8.4-10.2) L 03/15/24 04:09 Magnesium 1.9 mg/dL (1.6-2.3) 03/14/24 22:41 03/15/24 04:09 03/15/24 04:09 Assessment and Plan Plan: Assessment: 1. Acute kidney injury secondary to ATN secondary to cardiorenal syndrome and hypotension. Creatinine 3.1. Kidney ultrasound from November 2023 showed atrophic kidneys without hydronephrosis. UA from January 2024 showed no proteinuria. 2. Chronic kidney disease stage IIIa with baseline creatinine 1.2-1.3. 3. Acute on chronic diastolic CHF with moderate to severe mitral regurgitation and severe pulmonary hypertension. 4. Volume overload. 5. Acute hypoxic respiratory failure. 6. Diabetes mellitus. 7. COPD exacerbation. 8. Metabolic acidosis secondary to acute kidney injury. 9. Hypervolemic hyponatremia. Plan: Maintain IV Lasix. Check bladder scan to rule out urinary retention. Strict I's and O's. Avoid nephrotoxins. Add midodrine. Continue to monitor renal function and urine output. Follow-up chest x-ray. Thank you for the consultation. I will continue to follow the patient with you during her hospital stay.
[2024-03-15 11:22] LABS: Glucose,Whole Blood 235 mg/dL (70-110)
[2024-03-15] MEDS: MIDODRINE 5 MG TAB PO SCH (11:58)
--- NOTE | 2024-03-15 12:10 | XR ---
EXAMINATION TYPE: XR chest 1V DATE OF EXAM: 03/15/2024 COMPARISON: 03/14/2024 INDICATION: CHF, pneumonia TECHNIQUE: Single frontal view of the chest is obtained. FINDINGS: The heart size is prominent. The pulmonary vasculature is prominent. Diffuse increased lung markings are present bilaterally. There may be some improvement over the inter jase. IMPRESSION: 1. Clinical correlation recommended for congestive heart failure. There may be some improvement. Cont inued follow-up is recommended.
[2024-03-15] MEDS ORDERED: PIPERACILLIN-TAZOBACTAM 3.375 GM in SODIUM CHLORIDE 0.9% 100 ML IVPB SCH (14:00)
[2024-03-15 17:10] LABS: Glucose,Whole Blood 211 mg/dL (70-110)
[2024-03-15 17:57] LABS: Appearance,Urine Cloudy (Clear); Bacteria,Urine Rare /hpf; Bilirubin,Urine Negative (Negative); Blood,Urine Negative (Negative); Color,Urine Yellow; Glucose,Urine (UA) 3+ (Negative); Ketones,Urine Negative (Negative); Leukocyte Esterase,Urine Negative (Negative); Nitrite,Urine Negative (Negative); Protein,Urine Trace (Negative); RBC,Urine 1 /hpf (0-5); Specific Gravity,Urine 1.017 (1.001-1.035); Squamous Epithelial Cell,Urine 3 /hpf (0-4); Urobilinogen,Urine <2.0 mg/dL (<2.0); WBC,Urine 1 /hpf (0-5)
[2024-03-15] MEDS: CEPHALEXIN 500 MG CAP PO SCH (20:54)
[2024-03-15 21:01] LABS: Glucose,Whole Blood 274 mg/dL (70-110)
[2024-03-15] MEDS: INSULIN DETEMIR (LEVEMIR) 100 UNIT/ML SYR SQ SCH (21:10)
[2024-03-15] MEDS ORDERED: AZITHROMYCIN 500 MG in SODIUM CHLORIDE 0.9% 250 ML IVPB SCH (22:00)
[2024-03-15] MEDS ORDERED: AZITHROMYCIN 500 MG in SODIUM CHLORIDE 0.9% 250 ML IVPB ONE (23:54)
[2024-03-16] MEDS: MELATONIN 5 MG TABLET PO STA (01:47)
[2024-03-16 06:40] LABS: Glucose,Whole Blood 275 mg/dL (70-110)
[2024-03-16] MEDS: DAPAGLIFLOZIN PROPANEDIOL 10 MG TABLET PO SCH (09:58)
[2024-03-16 10:14] LABS: Basophils % (A) 0 %; Eosinophils # (A) 0.1 k/uL (0-0.7); Eosinophils % (A) 0 %; HGB 12.7 gm/dL (11.4-16.0); Lymphocytes # (A) 0.7 k/uL (1.0-4.8); Lymphocytes % (A) 4 %; MCH 28.3 pg (25.0-35.0); MCHC 30.9 g/dL (31.0-37.0); MCV 91.6 fL (80.0-100.0); Mean Platelet Volume 10.2; Monocytes # (A) 0.9 k/uL (0-1.0); Monocytes % (A) 4 %; Neutrophils # (A) 18.3 k/uL (1.3-7.7); Neutrophils % (A) 91 %; Platelet Count 200 k/uL (150-450); RBC 4.47 m/uL (3.80-5.40); RDW 14.5 % (11.5-15.5); WBC 20.1 k/uL (3.8-10.6)
[2024-03-16 10:25] LABS: African American GFR (CKD) 15 (>60 ml/min/1.73 sqM); Anion Gap 17 mmol/L; Blood Urea Nitrogen 92 mg/dL (7-17); Calcium 8.7 mg/dL (8.4-10.2); Carbon Dioxide 22 mmol/L (22-30); Chloride 95 mmol/L (98-107); Glucose 242 mg/dL (74-99); Magnesium 2.2 mg/dL (1.6-2.3); Non-African American GFR(CKD) 13 (>60 ml/min/1.73 sqM); Potassium 4.1 mmol/L (3.5-5.1); Sodium 134 mmol/L (137-145)
[2024-03-16 11:28] LABS: Glucose,Whole Blood 243 mg/dL (70-110)
--- NOTE | 2024-03-16 12:02 | P.PN ---
Subjective Patient is seen in follow-up for acute kidney injury on chronic kidney disease. On IV Lasix. Renal function stable. Denies chest pain or shortness of breath. On nasal cannula. Hemodynamically stable. Vital signs are stable. General: No acute distress. HEENT: Head exam is unremarkable. On nasal cannula. LUNGS: No audible rhonchi or wheezes. HEART: Rate and Rhythm are regular. ABDOMEN: Nontender. EXTREMITITES: No edema. Objective - Vital Signs Vital signs: Vital Signs Temp 97.3 F L 03/16/24 08:30 Pulse 72 03/16/24 08:30 Resp 17 03/16/24 08:30 BP 126/71 03/16/24 08:30 Pulse Ox 92 L 03/16/24 08:30 FiO2 40 03/16/24 00:16 Intake & Output 03/15/24 03/16/24 03/16/24 18:59 06:59 18:59 Intake Total 240 Output Total 150 300 Balance 90 -300 Weight 52.163 kg Intake: Oral 240 Output: Urine 150 300 Other: # Voids 1 - Labs CBC & Chem 7: 03/16/24 09:40 03/16/24 09:40 Labs: Abnormal Lab Results - Last 24 Hours (Table) 03/15/24 03/15/24 03/15/24 Range/Units 04:09 17:04 17:08 WBC (3.8-10.6) k/uL MCHC (31.0-37.0) g/dL Neutrophils # (1.3-7.7) k/uL Lymphocytes # (1.0-4.8) k/uL Sodium (137-145) mmol/L Chloride (98-107) mmol/L BUN (7-17) mg/dL Creatinine (0.52-1.04) mg/dL Glucose (74-99) mg/dL POC Glucose (mg/dL) 211 H (70-110) mg/dL Procalcitonin 1.69 H (0.02-0.09) ng/mL Urine Appearance Cloudy H (Clear) Urine Protein Trace H (Negative) Urine Glucose (UA) 3+ H (Negative) Urine Bacteria Rare H (None) /hpf 03/15/24 03/16/24 03/16/24 Range/Units 20:49 06:29 09:40 WBC (3.8-10.6) k/uL MCHC (31.0-37.0) g/dL Neutrophils # (1.3-7.7) k/uL Lymphocytes # (1.0-4.8) k/uL Sodium 134 L (137-145) mmol/L Chloride 95 L (98-107) mmol/L BUN 92 H (7-17) mg/dL Creatinine 3.13 H (0.52-1.04) mg/dL Glucose 242 H (74-99) mg/dL POC Glucose (mg/dL) 274 H 275 H (70-110) mg/dL Procalcitonin (0.02-0.09) ng/mL Urine Appearance (Clear) Urine Protein (Negative) Urine Glucose (UA) (Negative) Urine Bacteria (None) /hpf 03/16/24 03/16/24 Range/Units 09:40 11:26 WBC 20.1 H (3.8-10.6) k/uL MCHC 30.9 L (31.0-37.0) g/dL Neutrophils # 18.3 H (1.3-7.7) k/uL Lymphocytes # 0.7 L (1.0-4.8) k/uL Sodium (137-145) mmol/L Chloride (98-107) mmol/L BUN (7-17) mg/dL Creatinine (0.52-1.04) mg/dL Glucose (74-99) mg/dL POC Glucose (mg/dL) 243 H (70-110) mg/dL Procalcitonin (0.02-0.09) ng/mL Urine Appearance (Clear) Urine Protein (Negative) Urine Glucose (UA) (Negative) Urine Bacteria (None) /hpf Assessment and Plan Plan: Assessment: 1. Acute kidney injury secondary to ATN secondary to cardiorenal syndrome and hypotension. Creatinine stable at 3.1. Kidney ultrasound from November 2023 showed atrophic kidneys without hydronephrosis. UA from January 2024 showed no proteinuria. 2. Chronic kidney disease stage IIIa with baseline creatinine 1.2-1.3. 3. Acute on chronic diastolic CHF with moderate to severe mitral regurgitation and severe pulmonary hypertension. 4. Volume overload. 5. Acute hypoxic respiratory failure. 6. Diabetes mellitus. 7. COPD exacerbation. 8. Metabolic acidosis secondary to acute kidney injury. Better. 9. Hypervolemic hyponatremia. Better. Plan: Change IV Lasix to oral 40 mg twice daily. Avoid nephrotoxins. Maintain midodrine. Hold for systolic blood pressure greater than 110. Continue to monitor renal function and urine output. Maintain low-salt diet. Add 1500 cc fluid restriction. Stop SGLT2 inhibitor as GFR is less than 20.
--- NOTE | 2024-03-16 12:22 | P.PN ---
Subjective Progress Note Date: 03/16/24 Principal diagnosis: Acute on chronic hypoxic respiratory failure secondary to acute exacerbation of diastolic congestive heart failure Patient is an 88-year-old female with past medical history significant for congestive heart failure, chronic hypoxemic respiratory failure, diabetes mellitus, chronic kidney disease, hypertension, hyperlipidemia, and previous right-sided hip fracture. Of note, patient has had multiple hospitalizations for exacerbation of heart failure so far this year. Most recent echocardiogram taken 10/17/2023 estimates a preserved left ventricular ejection fraction of 55 to 60% with significant valvular heart disease including moderate to severe mitr al regurgitation, moderate to severe tricuspid regurgitation, and severe pulmonary hypertension. Most recently, hospitalized from 01/23/2024 through 02/08/2024 for similar presentation. She was diuresed with Lasix, and eventually discharged home with home health care. Patient is currently at home l iving with her daughter, who is at bedside, and provides most of the information. Over the last 2 days, her daughter noticed her mother to be more short of breath than normal and also intermittently confused at times. There has been a minimal nonproductive cough. Denies fevers, sputum production, chest pain. No nausea, vomiting, diarrhea. Admits reduced oral intake. No known recent sick contacts. Patient's lower extremity swelling is persistent but reportedly slightly improved. Denies missing any doses of Lasix while at home. During the night, pulse oximeter was reading low at home, and her daughter called EMS. When EMS arrived, the patient was noted to be in respiratory distress. SpO2 was reading 70 to 80% on 5 L nasal cannula. She is normally on 2 to 3 L chronically at home. Patient denies history of COPD/asthma. On arrival to the emergency room, patient was placed on BiPAP, current settings are 12/5 and FiO2 of 40%. On my evaluation, the patient appears comfortable. Respi ratory rate is in the mid 20s, and she is generating tidal volumes of around 500. VBG has a pCO2 of 37 and pH of 7.45. She is currently alert and oriented. SpO2 is 95%. Blood pressure was borderline on admission, and she was fluid resuscitated with 2 L of normal saline. Most recent reading 91/58 mmHg. Not requiring any vasopressors. Normal saline infusing at 50 MLS per hour. Chest x-ray taken on arrival shows cardiomegaly, increased pulmonary vascular congestion, as well as bilateral perihilar and bibasilar increased densities consistent with pulmonary edema or pneumonia. CBC: WBC count 22.3, hemoglobin 12.8, hematocrit 40.6, platelets 158. BMP: Sodium 131, potassium 4.7, chloride 95, serum bicarb 23, BUN of 84, creatinine 3.15, glucose 219. Lactic acid was 2.3 and is down to 1.6. LFTs mildly elevated. EKG shows normal sinus rhythm with a left anterior vascular block and left axis deviation. Previously, demonstrated Q wave changes in the anterior leads. NT proBNP 7940. Negative for influenza, RSV, COVID. Patient is currently afebrile. Empirically covered on a combination of azithromycin and Rocephin. Respiratory status is labile. Patient was seen and evaluated today on 03/16/2024, patient remains in the ER waiting for a bed on the floor, patient is now on nasal cannula, off BiPAP, apparently responded well to diuretics over the last 24 hours. Has been receivi ng Lasix at 60 mg IV push every 8 hours. Chest x-ray is improving, clinically the patient is improving, feeling much better and breathing a lot easier. Labs today showed leukocytosis with WBC count of 20.1 hemoglobin 12.7 electrolytes are normal BUN is 92 creatinine is 3.13, slightly improved compared to yesterday in spite of diuretics. Procalcitonin level is 1.69, patient remains empirically on antibiotics Objective - Vital Signs Vital signs: Vital Signs Temp 97.3 F L 03/16/24 08:30 Pulse 72 03/16/24 08:30 Resp 17 03/16/24 08:30 BP 126/71 03/16/24 08:30 Pulse Ox 92 L 03/16/24 08:30 FiO2 40 03/16/24 00:16 Intake & Output 03/15/24 03/16/24 03/16/24 18:59 06:59 18:59 Intake Total 240 Output Total 150 300 Balance 90 -300 Weight 52.163 kg Intake: Oral 240 Output: Urine 150 300 Other: # Voids 1 - Exam GENERAL EXAM: Revealed 88-year-old female, On 3 L nasal cannula, comfortable not in any distress. HEAD: Normocephalic and atraumatic EYES: Normal reaction of pupils, equal size. NOSE: Clear with pink turbinates. THROAT: No erythema or exudates. NECK: No masses, no JVD. CHEST: No chest wall deformity. LUNGS: Fine crackles persist at the bases no rhonchi no wheezes CVS: S1 and S2 normal with no audible murmur, regular rhythm. No extra heart sounds ABDOMEN: Soft nontender no megaly no rebound no guarding SKIN: No rashes CENTRAL NERVOUS SYSTEM: Alert and oriented x 3 no gross focal deficit EXTREMITIES: Trace of bipedal edema, good pulses bilaterally. - Labs CBC & Chem 7: 03/16/24 09:40 03/16/24 09:40 Labs: Abnormal Lab Results - Last 24 Hours (Table) 03/15/24 03/15/24 03/15/24 Range/Units 04:09 17:04 17:08 WBC (3.8-10.6) k/uL MCHC (31.0-37.0) g/dL Neutrophils # (1.3-7.7) k/uL Lymphocytes # (1.0-4.8) k/uL Sodium (137-145) mmol/L Chloride (98-107) mmol/L BUN (7-17) mg/dL Creatinine (0.52-1.04) mg/dL Glucose (74-99) mg/dL POC Glucose (mg/dL) 211 H (70-110) mg/dL Procalcitonin 1.69 H (0.02-0.09) ng/mL Urine Appearance Cloudy H (Clear) Urine Protein Trace H (Negative) Urine Glucose (UA) 3+ H (Negative) Urine Bacteria Rare H (None) /hpf 03/15/24 03/16/24 03/16/24 Range/Units 20:49 06:29 09:40 WBC (3.8-10.6) k/uL MCHC (31.0-37.0) g/dL Neutrophils # (1.3-7.7) k/uL Lymphocytes # (1.0-4.8) k/uL Sodium 134 L (137-145) mmol/L Chloride 95 L (98-107) mmol/L BUN 92 H (7-17) mg/dL Creatinine 3.13 H (0.52-1.04) mg/dL Glucose 242 H (74-99) mg/dL POC Glucose (mg/dL) 274 H 275 H (70-110) mg/dL Procalcitonin (0.02-0.09) ng/mL Urine Appearance (Clear) Urine Protein (Negative) Urine Glucose (UA) (Negative) Urine Bacteria (None) /hpf 03/16/24 03/16/24 Range/Units 09:40 11:26 WBC 20.1 H (3.8-10.6) k/uL MCHC 30.9 L (31.0-37.0) g/dL Neutrophils # 18.3 H (1.3-7.7) k/uL Lymphocytes # 0.7 L (1.0-4.8) k/uL Sodium (137-145) mmol/L Chloride (98-107) mmol/L BUN (7-17) mg/dL Creatinine (0.52-1.04) mg/dL Glucose (74-99) mg/dL POC Glucose (mg/dL) 243 H (70-110) mg/dL Procalcitonin (0.02-0.09) ng/mL Urine Appearance (Clear) Urine Protein (Negative) Urine Glucose (UA) (Negative) Urine Bacteria (None) /hpf Assessment and Plan Assessment: Impression: Acute on chronic hypoxemic respiratory failure, likely secondary to exacerbation of diastolic congestive heart failure, Possible superimposed community-acquired pneumonia, patient has elevated procalcitonin level, empirically on antibiotics. Although the clinical presentation is mostly a presentation of congestive heart failure. And considering the improvement with diuretics, this is more of a presentation of CHF unless proven otherwise. Chronic diastolic heart failure and valvular heart disease with moderate to severe mitral regurgitation, severe tricuspid regurgitation with secondary pulmonary hypertension. Left ventricular ejection fraction was estimated at 55 to 60% on most recent echocardiogram. 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 ESBL producing K lebsiella pneumonia in the urine History of benign essential hypertension History of hyperlipidemia Diabetes mellitus type 2 History of fall with right hip fracture and recent complicated hospital stay at outside facility Recommendation: Continue diuretics, Lasix 60 mg IV push every 8 hours Continue to monitor daily I's and O's Continue bronchodilators Continue antibiotics check cultures including urine cultures and adjust antibiotics accordingly Continue to monitor x-rays of the chest while inpatient Will continue to follow Overall prognosis remains relatively poor and guarded with her multiple medical issues as noted above. Time with Patient: Less than 30
--- NOTE | 2024-03-16 12:41 | P.PN ---
Subjective Progress Note Date: 03/16/24 Hospital Course: 88-year-old female with history of chronic diastolic heart failure, moderate to severe mitral regurgitation, severe pulmonary hypertension, hypertension, insulin-dependent diabetes, chronic kidney disease stage III, dyslipidemia presenting with shortness of breath. On presentation, patient was hypothermic, tachypneic, slightly hypotensive and hypoxic on room air. Was initially started on BiPAP. Was given IV Lasix, found to have worsening renal function as well. Pulmonology, cardiology and nephrology consulted. He was given IV antibiotics empirically in the ED. Subjective: Patient seen and examined at bedside. No acute events overnight. Claims that shortness of breath is improved. Pertinent positives and negatives as discussed above, a complete review of syst ems was performed and all other systems are negative. Vitals Signs Reviewed. General: Nontoxic, no distress, appears at stated age Derm: Warm, dry Head: Atraumatic, normocephalic, symmetric Eyes: EOMI, no lid lag, anicteric sclera Mouth: No lip lesion, mucus membranes moist Cardiovascular: S1S2 reg, no murmur Lungs: Bilateral rales, no accessory muscle use, supplemental oxygen Abdominal: Soft, nontender to palpation, no guarding, no appreciable organomegaly Ext: No gross muscle atrophy, no edema, no contractures Neuro: CN II-XI grossly intact, no focal neuro deficits Psych: Alert, oriented, appropriate affect Data Reviewed Today: Pertinent Labs: WBC 20.1, platelet 200, hemoglobin 12.7, sodium 134, creatinine 3.13, magnesium 2.2, blood sugars range between 2 42-2 75 Imaging: No new imaging Assessment and Plan: Active: Acute on chronic diastolic CHF exacerbation REJI on CKD stage III Acute hypoxic respiratory failure Hypervolemia -Nephrology note reviewed, IV Lasix changed to oral Lasix 40 twice daily, continue to monitor electrolytes and renal function, also on midodrine 5 AC 3 times daily -Pulmonology note reviewed, continue DuoNebs scheduled and 4 times daily as needed, hold off IV antibiotics -IV steroids were discontinued -Cardiology also following Type 2 diabetes Hyperglycemia -Continue Levemir 8 units nightly -Sliding scale insulin, monitor for hypoglycemia Resolved: Metabolic acidosis Lactic acidosis Chronic: Dyslipidemia GERD Restless leg syndrome Neuropathy DVT ppx: Subcu heparin Code status: DNR/DNI Anticipated discharge place: Pending clinical course Anticipated discharge time: Pending clinical course Objective - Vital Signs Vital signs: Vital Signs Temp 97.3 F L 03/16/24 08:30 Pulse 72 03/16/24 08:30 Resp 17 03/16/24 08:30 BP 126/71 03/16/24 08:30 Pulse Ox 92 L 03/16/24 08:30 FiO2 40 03/16/24 00:16 Intake & Output 03/15/24 03/16/24 03/16/24 18:59 06:59 18:59 Intake Total 240 Output Total 150 300 Balance 90 -300 Weight 52.163 kg Intake: Oral 240 Output: Urine 150 300 Other: # Voids 1 - Labs CBC & Chem 7: 03/16/24 09:40 03/16/24 09:40 Labs: Abnormal Lab Results - Last 24 Hours (Table) 03/15/24 03/15/24 03/15/24 Range/Units 04:09 17:04 17:08 WBC (3.8-10.6) k/uL MCHC (31.0-37.0) g/dL Neutrophils # (1.3-7.7) k/uL Lymphocytes # (1.0-4.8) k/uL Sodium (137-145) mmol/L Chloride (98-107) mmol/L BUN (7-17) mg/dL Creatinine (0.52-1.04) mg/dL Glucose (74-99) mg/dL POC Glucose (mg/dL) 211 H (70-110) mg/dL Procalcitonin 1.69 H (0.02-0.09) ng/mL Urine Appearance Cloudy H (Clear) Urine Protein Trace H (Negative) Urine Glucose (UA) 3+ H (Negative) Urine Bacteria Rare H (None) /hpf 03/15/24 03/16/24 03/16/24 Range/Units 20:49 06:29 09:40 WBC (3.8-10.6) k/uL MCHC (31.0-37.0) g/dL Neutrophils # (1.3-7.7) k/uL Lymphocytes # (1.0-4.8) k/uL Sodium 134 L (137-145) mmol/L Chloride 95 L (98-107) mmol/L BUN 92 H (7-17) mg/dL Creatinine 3.13 H (0.52-1.04) mg/dL Glucose 242 H (74-99) mg/dL POC Glucose (mg/dL) 274 H 275 H (70-110) mg/dL Procalcitonin (0.02-0.09) ng/mL Urine Appearance (Clear) Urine Protein (Negative) Urine Glucose (UA) (Negative) Urine Bacteria (None) /hpf 03/16/24 03/16/24 Range/Units 09:40 11:26 WBC 20.1 H (3.8-10.6) k/uL MCHC 30.9 L (31.0-37.0) g/dL Neutrophils # 18.3 H (1.3-7.7) k/uL Lymphocytes # 0.7 L (1.0-4.8) k/uL Sodium (137-145) mmol/L Chloride (98-107) mmol/L BUN (7-17) mg/dL Creatinine (0.52-1.04) mg/dL Glucose (74-99) mg/dL POC Glucose (mg/dL) 243 H (70-110) mg/dL Procalcitonin (0.02-0.09) ng/mL Urine Appearance (Clear) Urine Protein (Negative) Urine Glucose (UA) (Negative) Urine Bacteria (None) /hpf
--- NOTE | 2024-03-16 14:10 | P.PN ---
Subjective Progress Note Date: 03/16/24 Consult reason: congestive heart failure History of present illness: This is an 88-year-old female patient of Dr. Sebastian Gruber with past medical diabetes mellitus type 2, hypertension, dyslipidemia, mitral valve insufficiency, chronic diastolic heart failure. We have been asked to evaluate the patient for CHF. Patient states that she came into the hospital due to shortness of breath with breathing is a little bit better now. Patient is seen in the ER on BiPAP. She denies having any chest pain, no dizziness, no palpitations. She has no lower extremity edema. She denies having any wheezing at home. No nausea or vomiting. No blood in her stools. Patient had a recent hospitalization in January at which time she was seen by cardiology for acute on chronic heart failure with preserved EF. Patient is seen today in the emergency center waiting for a bed on the cardiac stepdown unit. She has been started on IV Lasix 60 mg every 8 hours. EKG sinus rhythm at 64 bpm left anterior fascicular block. Chest x-ray: Pulmonary vascular is engorged with bilateral perihilar and bibasilar increased densities consistent with pulmonary edema or pneumonia. C ardiac silhouette is moderately enlarged.. WBC 17.3, hemoglobin 11.5, platelet count 141. Sodium 132, potassium 4.7, BUN 83 creatinine 3.19. Lactic acid initially 2.3 and repeat 1.6. proBNP 7940 Home cardiac medications: atorvastatin 20 mg daily, Coreg 12.5 mg twice daily, Farxiga 10 mg daily, Lasix 40 mg twice daily, hydralazine 50 mg twice daily, Procardia XL 90 mg daily, potassium chloride 40 mill equivalents twice daily. Echocardiogram performed 10/09/2023 reveals normal LV function. Severe pulmonary hypertension. Moderate to severe mitral regurgitation. Moderate to severe tricuspid regurgitation. 03/16 Patient is seen today in follow-up and she remains in the emergency center waiting for a bed on the cardiac stepdown unit. She has been maintained on IV Lasix 60 mg every 6 hours. She states she slept well last night. Her breathing is better and overall feels better today. Blood pressure 126/71, heart rate 72, pulse ox 92% on 3 L nasal cannula. Repeat blood work reveals WBC 20, hemoglobin 12.7. BUN 92, creatinine 3.13. Potassium 4.1. Physical examination: Gen: This is a 88-year-old female in no respiratory distress VS: reviewed LUNGS: Reveals crackles to the bilateral one third of the lower lungs. HEART: Regular rate and rhythm. Holosystolic murmur at the apex. ABDOMEN: Soft No tenderness. EXTREMITIES: Trace bilateral lower extremity edema. No calf tenderness. NEUROLOGICAL: Patient is awake, alert and oriented x3. Assessment: Acute on chronic diastolic heart failure Acute kidney injury Hypertension, hypotension resolved Dyslipidemia Diabetes mellitus type 2 Moderate to severe mitral regurgitation Severe pulmonary hypertension Plan: Continue patient's home cardiac medications Transition IV Lasix to oral 40 mg twice daily Monitor MARLENA, daily weights, electrolytes and renal function. Resume patient on Farxiga 10 mg daily No need to repeat echocardiogram as it was done in September Prognosis is poor. Consider palliative care. Further recommendations to follow based upon clinical course Nurse practitioner note has been reviewed, I agree with documented findings and plan of care. Patient was seen and examined. Objective - Vital Signs Vital signs: Vital Signs Temp 97.9 F 03/16/24 05:07 Pulse 67 03/16/24 05:07 Resp 14 03/16/24 05:07 BP 105/75 03/16/24 05:07 Pulse Ox 92 L 03/16/24 05:07 FiO2 40 03/16/24 00:16 Intake & Output 03/15/24 03/16/24 03/16/24 18:59 06:59 18:59 Intake Total 240 Output Total 150 300 Balance 90 -300 Weight 52.163 kg Intake: Oral 240 Output: Urine 150 300 Other: # Voids 1 - Labs CBC & Chem 7: 03/16/24 09:40 03/16/24 09:40 Labs: Abnormal Lab Results - Last 24 Hours (Table) 03/15/24 03/15/24 03/15/24 Range/Units 04:09 11:19 17:04 POC Glucose (mg/dL) 235 H (70-110) mg/dL Procalcitonin 1.69 H (0.02-0.09) ng/mL Urine Appearance Cloudy H (Clear) Urine Protein Trace H (Negative) Urine Glucose (UA) 3+ H (Negative) Urine Bacteria Rare H (None) /hpf 03/15/24 03/15/24 03/16/24 Range/Units 17:08 20:49 06:29 POC Glucose (mg/dL) 211 H 274 H 275 H (70-110) mg/dL Procalcitonin (0.02-0.09) ng/mL Urine Appearance (Clear) Urine Protein (Negative) Urine Glucose (UA) (Negative) Urine Bacteria (None) /hpf
[2024-03-16 14:14] VITALS: BMI 21.0
[2024-03-16] MEDS ORDERED: FUROSEMIDE 40 MG TAB PO SCH (16:00)
[2024-03-16] MEDS: FUROSEMIDE 40 MG TAB PO SCH (16:00)
[2024-03-16 17:03] LABS: Glucose,Whole Blood 222 mg/dL (70-110)
[2024-03-16 20:07] LABS: Glucose,Whole Blood 213 mg/dL (70-110)
[2024-03-17 06:06] LABS: Glucose,Whole Blood 57 mg/dL (70-110)
[2024-03-17 06:28] LABS: Glucose,Whole Blood 87 mg/dL (70-110)
[2024-03-17] MEDS: DAPAGLIFLOZIN PROPANEDIOL 10 MG TABLET PO SCH (08:26)
[2024-03-17] MEDS: CEPHALEXIN 500 MG CAP PO SCH (08:26)
[2024-03-17 09:09] LABS: African American GFR (CKD) 25 (>60 ml/min/1.73 sqM); Anion Gap 11 mmol/L; Blood Urea Nitrogen 81 mg/dL (7-17); Calcium 8.9 mg/dL (8.4-10.2); Carbon Dioxide 31 mmol/L (22-30); Chloride 97 mmol/L (98-107); Glucose 73 mg/dL (74-99); Magnesium 2.1 mg/dL (1.6-2.3); Non-African American GFR(CKD) 21 (>60 ml/min/1.73 sqM); Potassium 3.5 mmol/L (3.5-5.1); Sodium 139 mmol/L (137-145)
[2024-03-17 09:41] LABS: Basophils # (A) 0.1 k/uL (0-0.2); Basophils % (A) 1 %; Eosinophils % (A) 0 %; HCT 41.8 % (34.0-46.0); HGB 13.2 gm/dL (11.4-16.0); Lymphocytes # (A) 0.6 k/uL (1.0-4.8); Lymphocytes % (A) 3 %; MCH 28.6 pg (25.0-35.0); MCHC 31.5 g/dL (31.0-37.0); MCV 90.7 fL (80.0-100.0); Mean Platelet Volume 10.1; Monocytes # (A) 1.1 k/uL (0-1.0); Monocytes % (A) 6 %; Neutrophils # (A) 18.5 k/uL (1.3-7.7); Neutrophils % (A) 90 %; Platelet Count 209 k/uL (150-450); RBC 4.62 m/uL (3.80-5.40); RDW 14.5 % (11.5-15.5); WBC 20.6 k/uL (3.8-10.6)
--- NOTE | 2024-03-17 10:31 | P.PN ---
Subjective Patient is seen in follow-up for acute kidney injury on chronic kidney disease. On oral Lasix. Renal function improved. Denies chest pain or shortness of breath. On nasal cannula. Hemodynamically stable. Daughter present at bedside. Vital signs are stable. General: No acute distress. HEENT: Head exam is unremarkable. On nasal cannula. LUNGS: No audible rhonchi or wheezes. HEART: Rate and Rhythm are regular. ABDOMEN: Nontender. EXTREMITITES: No edema. Objective - Vital Signs Vital signs: Vital Signs Temp 97.3 F L 03/17/24 08:00 Pulse 80 03/17/24 09:30 Resp 18 03/17/24 08:00 BP 169/75 03/17/24 08:00 Pulse Ox 92 L 03/17/24 09:20 FiO2 40 03/16/24 00:16 Intake & Output 03/16/24 03/17/24 03/17/24 18:59 06:59 18:59 Intake Total 240 240 Output Total 1250 2950 400 Balance -1250 -2710 -160 Weight 52.163 kg 60.5 kg Intake: Oral 240 240 Output: Urine 1250 2950 400 Other: Voiding Method External Catheter External Catheter # Voids 1 # Bowel Movements 1 1 - Labs CBC & Chem 7: 03/17/24 07:55 03/17/24 07:38 Labs: Abnormal Lab Results - Last 24 Hours (Table) 03/16/24 03/16/24 03/16/24 Range/Units 11:26 17:01 20:05 WBC (3.8-10.6) k/uL Neutrophils # (1.3-7.7) k/uL Lymphocytes # (1.0-4.8) k/uL Monocytes # (0-1.0) k/uL Chloride (98-107) mmol/L Carbon Dioxide (22-30) mmol/L BUN (7-17) mg/dL Creatinine (0.52-1.04) mg/dL Glucose (74-99) mg/dL POC Glucose (mg/dL) 243 H 222 H 213 H (70-110) mg/dL 03/17/24 03/17/24 03/17/24 Range/Units 06:05 07:38 07:55 WBC 20.6 H (3.8-10.6) k/uL Neutrophils # 18.5 H (1.3-7.7) k/uL Lymphocytes # 0.6 L (1.0-4.8) k/uL Monocytes # 1.1 H (0-1.0) k/uL Chloride 97 L (98-107) mmol/L Carbon Dioxide 31 H (22-30) mmol/L BUN 81 H (7-17) mg/dL Creatinine 2.03 H (0.52-1.04) mg/dL Glucose 73 L (74-99) mg/dL POC Glucose (mg/dL) 57 L (70-110) mg/dL Microbiology - Last 24 Hours (Table) 03/15/24 01:20 Blood Culture - Preliminary Blood 03/15/24 01:05 Blood Culture - Preliminary Blood Assessment and Plan Plan: Assessment: 1. Acute kidney injury secondary to ATN secondary to cardiorenal syndrome and hypotension. Renal function improved. Creatinine 2.03 today. Kidney ultrasound from November 2023 showed atrophic kidneys without hydronephrosis. UA from January 2024 showed no proteinuria. UA from this admission also fairly benign. 2. Chronic kidney disease stage IIIa with baseline creatinine 1.2-1.3. 3. Acute on chronic diastolic CHF with moderate to severe mitral regurgitation and severe pulmonary hypertension. 4. Volume overload. Improved with diuresis. 5. Acute hypoxic respiratory failure. 6. Diabetes mellitus. 7. COPD exacerbation. 8. Metabolic acidosis secondary to acute kidney injury. Resolved. 9. Hypervolemic hyponatremia. Improved. Plan: Maintain oral Lasix. Also on SGLT2 inhibitor. Okay to continue as GFR above 20 now. Avoid nephrotoxins. Maintain midodrine. Hold for systolic blood pressure greater than 110. Continue to monitor renal function and urine output. Maintain low-salt diet. Maintain 1500 cc fluid restriction.
[2024-03-17 11:28] LABS: Glucose,Whole Blood 85 mg/dL (70-110)
[2024-03-17] MEDS: ACETAMINOPHEN TAB 325 MG TAB PO PRN (11:51)
--- NOTE | 2024-03-17 12:11 | P.PN ---
Subjective Progress Note Date: 03/17/24 Hospital Course: 88-year-old female with history of chronic diastolic heart failure, moderate to severe mitral regurgitation, severe pulmonary hypertension, hypertension, insulin-dependent diabetes, chronic kidney disease stage III, dyslipidemia presenting with shortness of breath. On presentation, patient was hypothermic, tachypneic, slightly hypotensive and hypoxic on room air. Was initially started on BiPAP. Was given IV Lasix, found to have worsening renal function as well. Pulmonology, cardiology and nephrology consulted. He was given IV antibiotics empirically in the ED. respiratory function improved with IV Lasix. Patient now on oral Lasix. Renal function also improved with diuretics. Patient needs subacute rehab. Subjective: Patient seen and examined at bedside. No acute events overnight. Claims that shortness of breath is improved. Pertinent positives and negatives as discussed above, a complete review of systems was performed and all other systems are negative. Vitals Signs Reviewed. General: Nontoxic, no distress, appears at stated age Derm: Warm, dry Head: Atraumatic, normocephalic, symmetric Eyes: EOMI, no lid lag, anicteric sclera Mouth: No lip lesion, mucus membranes moist Cardiovascular: S1S2 reg, no murmur Lungs: Bilateral rales, no accessory muscle use, supplemental oxygen Abdominal: Soft, nontender to palpation, no guarding, no appreciable organomegaly Ext: No gross muscle atrophy, no edema, no contractures Neuro: CN II-XI grossly intact, no focal neuro deficits Psych: Alert, oriented, appropriate affect Data Reviewed Today: Pertinent Labs: WBC 20. 6, sodium 139, creatinine 2.03, magnesium 2.1 Imaging: No new imaging Assessment and Plan: Active: Acute on chronic diastolic CHF exacerbation REJI on CKD stage III, improving Acute hypoxic respiratory failure, improving Hypervolemia -Nephrology note reviewed, continue oral Lasix 40 twice daily, also on midodrine 5 AC 3 times daily -Pulmonology following, continue DuoNebs scheduled and 4 times daily as needed, hold off IV antibiotics -IV steroids were discontinued -Cardiology also following Type 2 diabetes Hyperglycemia -Continue Levemir 8 units nightly -Sliding scale insulin, monitor for hypoglycemia Resolved: Metabolic acidosis Lactic acidosis Chronic: Dyslipidemia GERD Restless leg syndrome Neuropathy DVT ppx: Subcu heparin Code status: DNR/DNI Anticipated discharge place: Subacute rehab Anticipated discharge time: Pending clinical course Objective - Vital Signs Vital signs: Vital Signs Temp 97.3 F L 03/17/24 08:00 Pulse 79 03/17/24 11:44 Resp 18 03/17/24 11:44 BP 155/81 03/17/24 11:44 Pulse Ox 98 03/17/24 11:44 FiO2 40 03/16/24 00:16 Intake & Output 03/16/24 03/17/24 03/17/24 18:59 06:59 18:59 Intake Total 240 240 Output Total 1250 2950 400 Balance -1250 -2410 -160 Weight 52.163 kg 60.5 kg Intake: Oral 240 240 Output: Urine 1250 2950 400 Other: Voiding Method External Catheter External Catheter # Voids 1 # Bowel Movements 1 1 - Labs CBC & Chem 7: 03/17/24 07:55 03/17/24 07:38 Labs: Abnormal Lab Results - Last 24 Hours (Table) 03/16/24 03/16/24 03/17/24 Range/Units 17:01 20:05 06:05 WBC (3.8-10.6) k/uL Neutrophils # (1.3-7.7) k/uL Lymphocytes # (1.0-4.8) k/uL Monocytes # (0-1.0) k/uL Chloride (98-107) mmol/L Carbon Dioxide (22-30) mmol/L BUN (7-17) mg/dL Creatinine (0.52-1.04) mg/dL Glucose (74-99) mg/dL POC Glucose (mg/dL) 222 H 213 H 57 L (70-110) mg/dL 03/17/24 03/17/24 Range/Units 07:38 07:55 WBC 20.6 H (3.8-10.6) k/uL Neutrophils # 18.5 H (1.3-7.7) k/uL Lymphocytes # 0.6 L (1.0-4.8) k/uL Monocytes # 1.1 H (0-1.0) k/uL Chloride 97 L (98-107) mmol/L Carbon Dioxide 31 H (22-30) mmol/L BUN 81 H (7-17) mg/dL Creatinine 2.03 H (0.52-1.04) mg/dL Glucose 73 L (74-99) mg/dL POC Glucose (mg/dL) (70-110) mg/dL Microbiology - Last 24 Hours (Table) 03/15/24 01:20 Blood Culture - Preliminary Blood 03/15/24 01:05 Blood Culture - Preliminary Blood
[2024-03-17] MEDS: IPRATROPIUM-ALBUTEROL 3 ML NEB INHALATION PRN (12:30)
--- NOTE | 2024-03-17 13:34 | P.PN ---
Subjective Progress Note Date: 03/17/24 Principal diagnosis: Acute on chronic hypoxic respiratory failure secondary to acute exacerbation of diastolic congestive heart failure Patient is an 88-year-old female with past medical history significant for congestive heart failure, chronic hypoxemic respiratory failure, diabetes mellitus, chronic kidney disease, hypertension, hyperlipidemia, and previous right-sided hip fracture. Of note, patient has had multiple hospitalizations for exacerbation of heart failure so far this year. Most recent echocardiogram taken 10/17/2023 estimates a preserved left ventricular ejection fraction of 55 to 60% with significant valvular heart disease including moderate to severe mitr al regurgitation, moderate to severe tricuspid regurgitation, and severe pulmonary hypertension. Most recently, hospitalized from 01/23/2024 through 02/08/2024 for similar presentation. She was diuresed with Lasix, and eventually discharged home with home health care. Patient is currently at home l iving with her daughter, who is at bedside, and provides most of the information. Over the last 2 days, her daughter noticed her mother to be more short of breath than normal and also intermittently confused at times. There has been a minimal nonproductive cough. Denies fevers, sputum production, chest pain. No nausea, vomiting, diarrhea. Admits reduced oral intake. No known recent sick contacts. Patient's lower extremity swelling is persistent but reportedly slightly improved. Denies missing any doses of Lasix while at home. During the night, pulse oximeter was reading low at home, and her daughter called EMS. When EMS arrived, the patient was noted to be in respiratory distress. SpO2 was reading 70 to 80% on 5 L nasal cannula. She is normally on 2 to 3 L chronically at home. Patient denies history of COPD/asthma. On arrival to the emergency room, patient was placed on BiPAP, current settings are 12/5 and FiO2 of 40%. On my evaluation, the patient appears comfortable. Respi ratory rate is in the mid 20s, and she is generating tidal volumes of around 500. VBG has a pCO2 of 37 and pH of 7.45. She is currently alert and oriented. SpO2 is 95%. Blood pressure was borderline on admission, and she was fluid resuscitated with 2 L of normal saline. Most recent reading 91/58 mmHg. Not requiring any vasopressors. Normal saline infusing at 50 MLS per hour. Chest x-ray taken on arrival shows cardiomegaly, increased pulmonary vascular congestion, as well as bilateral perihilar and bibasilar increased densities consistent with pulmonary edema or pneumonia. CBC: WBC count 22.3, hemoglobin 12.8, hematocrit 40.6, platelets 158. BMP: Sodium 131, potassium 4.7, chloride 95, serum bicarb 23, BUN of 84, creatinine 3.15, glucose 219. Lactic acid was 2.3 and is down to 1.6. LFTs mildly elevated. EKG shows normal sinus rhythm with a left anterior vascular block and left axis deviation. Previously, demonstrated Q wave changes in the anterior leads. NT proBNP 7940. Negative for influenza, RSV, COVID. Patient is currently afebrile. Empirically covered on a combination of azithromycin and Rocephin. Respiratory status is labile. Patient was seen and evaluated today on 03/16/2024, patient remains in the ER waiting for a bed on the floor, patient is now on nasal cannula, off BiPAP, apparently responded well to diuretics over the last 24 hours. Has been receivi ng Lasix at 60 mg IV push every 8 hours. Chest x-ray is improving, clinically the patient is improving, feeling much better and breathing a lot easier. Labs today showed leukocytosis with WBC count of 20.1 hemoglobin 12.7 electrolytes are normal BUN is 92 creatinine is 3.13, slightly improved compared to yesterday in spite of diuretics. Procalcitonin level is 1.69, patient remains empirically on antibiotics Reevaluated today on 03/17/2024, patient is now on the cardiac floor, doing well, she is on 3 L nasal cannula O2 saturation 98%, significant clinical improvement noted since admission. Patient is improving steadily. Follow-up chest x-ray will be done tomorrow. Remains on diuretics antibiotics, her WBC count is 20.6 hemoglobin 13.2 basic metabolic profile is normal BUN is 81 creatinine is down to 2.03, steadily improving in spite of diuretics her Lasix dose was changed to 40 mg p.o. twice daily, patient remains on Keflex and she remains on bronchodilators in the form of DuoNeb updrafts 4 times daily and as needed. Objective - Vital Signs Vital signs: Vital Signs Temp 97.3 F L 03/17/24 08:00 Pulse 74 03/17/24 12:41 Resp 18 03/17/24 11:44 BP 155/81 03/17/24 11:44 Pulse Ox 98 03/17/24 11:44 FiO2 40 03/16/24 00:16 Intake & Output 03/16/24 03/17/24 03/17/24 18:59 06:59 18:59 Intake Total 240 240 Output Total 1250 2950 400 Balance -0320 -2160 -160 Weight 52.163 kg 60.5 kg Intake: Oral 240 240 Output: Urine 1250 2950 400 Other: Voiding Method External Catheter External Catheter # Voids 1 # Bowel Movements 1 1 - Exam GENERAL EXAM: Revealed 88-year-old female, On 3 L nasal cannul, asymptomatica HEAD: Normocephalic and atraumatic EYES: Normal reaction of pupils, equal size. NOSE: Clear with pink turbinates. THROAT: No erythema or exudates. NECK: No masses, no JVD. CHEST: No chest wall deformity. LUNGS: Minimal crackles at the bases persist. CVS: S1 and S2 normal with no audible murmur, regular rhythm. No extra heart sounds ABDOMEN: Soft nontender no megaly no rebound no guarding SKIN: No rashes CENTRAL NERVOUS SYSTEM: Alert and oriented x 3 no gross focal deficit EXTREMITIES: Trace of bipedal edema, good pulses bilaterally. - Labs CBC & Chem 7: 03/17/24 07:55 03/17/24 07:38 Labs: Abnormal Lab Results - Last 24 Hours (Table) 03/16/24 03/16/24 03/17/24 Range/Units 17:01 20:05 06:05 WBC (3.8-10.6) k/uL Neutrophils # (1.3-7.7) k/uL Lymphocytes # (1.0-4.8) k/uL Monocytes # (0-1.0) k/uL Chloride (98-107) mmol/L Carbon Dioxide (22-30) mmol/L BUN (7-17) mg/dL Creatinine (0.52-1.04) mg/dL Glucose (74-99) mg/dL POC Glucose (mg/dL) 222 H 213 H 57 L (70-110) mg/dL 03/17/24 03/17/24 Range/Units 07:38 07:55 WBC 20.6 H (3.8-10.6) k/uL Neutrophils # 18.5 H (1.3-7.7) k/uL Lymphocytes # 0.6 L (1.0-4.8) k/uL Monocytes # 1.1 H (0-1.0) k/uL Chloride 97 L (98-107) mmol/L Carbon Dioxide 31 H (22-30) mmol/L BUN 81 H (7-17) mg/dL Creatinine 2.03 H (0.52-1.04) mg/dL Glucose 73 L (74-99) mg/dL POC Glucose (mg/dL) (70-110) mg/dL Microbiology - Last 24 Hours (Table) 03/15/24 01:20 Blood Culture - Preliminary Blood 03/15/24 01:05 Blood Culture - Preliminary Blood Assessment and Plan Assessment: Impression: Acute on chronic hypoxemic respiratory failure, likely secondary to exacerbation of diastolic congestive heart failure, Possible superimposed community-acquired pneumonia, patient has elevated procalcitonin level, empirically on antibiotics. Although the clinical present ation is mostly a presentation of congestive heart failure. And considering the improvement with diuretics, this is more of a presentation of CHF unless proven otherwise. Chronic diastolic heart failure and valvular heart disease with moderate to severe mitral regurgitation, severe tricuspid regurgitation with secondary pulmonary hypertension. Left ventricular ejection fraction was estimated at 55 to 60% on most recent echocardiogram. 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 twice daily Continue to monitor daily I's and O's Continue bronchodilators Continue antibiotics Recheck chest x-ray in a.m. Will continue to follow Time with Patient: Less than 30
--- NOTE | 2024-03-17 15:17 | P.PN ---
Subjective Progress Note Date: 03/17/24 Consult reason: congestive heart failure History of present illness: This is an 88-year-old female patient of Dr. Sebastian Gruber with past medical diabetes mellitus type 2, hypertension, dyslipidemia, mitral valve insufficiency, chronic diastolic heart failure. We have been asked to evaluate the patient for CHF. Patient states that she came into the hospital due to shortness of breath with breathing is a little bit better now. Patient is seen in the ER on BiPAP. She denies having any chest pain, no dizziness, no palpitations. She has no lower extremity edema. She denies having any wheezing at home. No nausea or vomiting. No blood in her stools. Patient had a recent hospitalization in January at which time she was seen by cardiology for acute on chronic heart failure with preserved EF. Patient is seen today in the emergency center waiting for a bed on the cardiac stepdown unit. She has been started on IV Lasix 60 mg every 8 hours. EKG sinus rhythm at 64 bpm left anterior fascicular block. Chest x-ray: Pulmonary vascular is engorged with bilateral perihilar and bibasilar increased densities consistent with pulmonary edema or pneumonia. C ardiac silhouette is moderately enlarged.. WBC 17.3, hemoglobin 11.5, platelet count 141. Sodium 132, potassium 4.7, BUN 83 creatinine 3.19. Lactic acid initially 2.3 and repeat 1.6. proBNP 7940 Home cardiac medications: atorvastatin 20 mg daily, Coreg 12.5 mg twice daily, Farxiga 10 mg daily, Lasix 40 mg twice daily, hydralazine 50 mg twice daily, Procardia XL 90 mg daily, potassium chloride 40 mill equivalents twice daily. Echocardiogram performed 10/09/2023 reveals normal LV function. Severe pulmonary hypertension. Moderate to severe mitral regurgitation. Moderate to severe tricuspid regurgitation. 03/16 Patient is seen today in follow-up and she remains in the emergency center waiting for a bed on the cardiac stepdown unit. She has been maintained on IV Lasix 60 mg every 6 hours. She states she slept well last night. Her breathing is better and overall feels better today. Blood pressure 126/71, heart rate 72, pulse ox 92% on 3 L nasal cannula. Repeat blood work reveals WBC 20, hemoglobin 12.7. BUN 92, creatinine 3.13. Potassium 4.1. 03/17 Patient's renal function is improved today but according to patient's daughter, patient had more confusion during the night and this morning. Blood pressure has recovered and now 155/81, heart rate 79, pulse ox 98% on 3 L nasal cannula. Repeat blood work reveals WBC 20.6, hemoglobin 13.2. Sodium 139, potassium 3.5, BUN 81 creatinine 2.03. Patient is followed by nephrology as well. Physical examination: Gen: This is a 88-year-old female in no respiratory distress VS: reviewed LUNGS: Reveals crackles to the bilateral one third of the lower lungs. HEART: Regular rate and rhythm. Holosystolic murmur at the apex. ABDOMEN: Soft No tenderness. EXTREMITIES: Trace bilateral lower extremity edema. No calf tenderness. NEUROLOGICAL: Patient is awake, alert and oriented x3. Assessment: Acute on chronic diastolic heart failure Acute kidney injury Hypertension, hypotension resolved Dyslipidemia Diabetes mellitus type 2 Moderate to severe mitral regurgitation Severe pulmonary hypertension Plan: Continue patient's home cardiac medications Continue Lasix oral 40 mg twice daily Monitor MARLENA, daily weights, electrolytes and renal function. Continue patient on Farxiga 10 mg daily No need to repeat echocardiogram as it was done in September Discontinue midodrine Resume Coreg 3.125 mg twice daily Further recommendations to follow based upon clinical course Nurse practitioner note has been reviewed, I agree with documented findings and plan of care. Patient was seen and examined. Objective - Vital Signs Vital signs: Vital Signs Temp 97.3 F L 03/17/24 08:00 Pulse 79 03/17/24 11:44 Resp 18 03/17/24 11:44 BP 155/81 03/17/24 11:44 Pulse Ox 98 03/17/24 11:44 FiO2 40 03/16/24 00:16 Intake & Output 03/16/24 03/17/24 03/17/24 18:59 06:59 18:59 Intake Total 240 240 Output Total 1250 2950 400 Balance -1250 -8670 -160 Weight 52.163 kg 60.5 kg Intake: Oral 240 240 Output: Urine 1250 2950 400 Other: Voiding Method External Catheter External Catheter # Voids 1 # Bowel Movements 1 1 - Labs CBC & Chem 7: 03/17/24 07:55 03/17/24 07:38 Labs: Abnormal Lab Results - Last 24 Hours (Table) 03/16/24 03/16/24 03/17/24 Range/Units 17:01 20:05 06:05 WBC (3.8-10.6) k/uL Neutrophils # (1.3-7.7) k/uL Lymphocytes # (1.0-4.8) k/uL Monocytes # (0-1.0) k/uL Chloride (98-107) mmol/L Carbon Dioxide (22-30) mmol/L BUN (7-17) mg/dL Creatinine (0.52-1.04) mg/dL Glucose (74-99) mg/dL POC Glucose (mg/dL) 222 H 213 H 57 L (70-110) mg/dL 03/17/24 03/17/24 Range/Units 07:38 07:55 WBC 20.6 H (3.8-10.6) k/uL Neutrophils # 18.5 H (1.3-7.7) k/uL Lymphocytes # 0.6 L (1.0-4.8) k/uL Monocytes # 1.1 H (0-1.0) k/uL Chloride 97 L (98-107) mmol/L Carbon Dioxide 31 H (22-30) mmol/L BUN 81 H (7-17) mg/dL Creatinine 2.03 H (0.52-1.04) mg/dL Glucose 73 L (74-99) mg/dL POC Glucose (mg/dL) (70-110) mg/dL Microbiology - Last 24 Hours (Table) 03/15/24 01:20 Blood Culture - Preliminary Blood 03/15/24 01:05 Blood Culture - Preliminary Blood
[2024-03-17] MEDS: carvediloL 3.125 MG TAB PO SCH (16:20)
[2024-03-17] MEDS: IPRATROPIUM-ALBUTEROL 3 ML NEB INHALATION SCH (16:26)
[2024-03-17 16:35] LABS: Glucose,Whole Blood 181 mg/dL (70-110)
[2024-03-17 20:15] LABS: Glucose,Whole Blood 133 mg/dL (70-110)
[2024-03-18 06:29] LABS: Glucose,Whole Blood 85 mg/dL (70-110)
[2024-03-18 09:36] LABS: Basophils # (A) 0.1 k/uL (0-0.2); Basophils % (A) 1 %; Eosinophils # (A) 0.1 k/uL (0-0.7); Eosinophils % (A) 1 %; HCT 43.7 % (34.0-46.0); HGB 13.5 gm/dL (11.4-16.0); Hypochromasia Slight; Lymphocytes # (A) 0.7 k/uL (1.0-4.8); Lymphocytes % (A) 7 %; MCH 28.1 pg (25.0-35.0); MCHC 30.8 g/dL (31.0-37.0); MCV 91.4 fL (80.0-100.0); Mean Platelet Volume 9.7; Monocytes # (A) 0.7 k/uL (0-1.0); Monocytes % (A) 7 %; Neutrophils # (A) 8.6 k/uL (1.3-7.7); Neutrophils % (A) 83 %; Platelet Count 185 k/uL (150-450); RBC 4.78 m/uL (3.80-5.40); RDW 14.6 % (11.5-15.5); WBC 10.3 k/uL (3.8-10.6)
[2024-03-18 10:01] LABS: African American GFR (CKD) 35 (>60 ml/min/1.73 sqM); Anion Gap 8 mmol/L; Blood Urea Nitrogen 62 mg/dL (7-17); Calcium 8.7 mg/dL (8.4-10.2); Carbon Dioxide 32 mmol/L (22-30); Chloride 101 mmol/L (98-107); Glucose 113 mg/dL (74-99); Non-African American GFR(CKD) 30 (>60 ml/min/1.73 sqM); Potassium 3.3 mmol/L (3.5-5.1); Sodium 141 mmol/L (137-145)
--- NOTE | 2024-03-18 10:48 | P.PN ---
Subjective Progress Note Date: 03/18/24 Consult reason: congestive heart failure History of present illness: This is an 88-year-old female patient of Dr. Sebastian Gruber with past medical diabetes mellitus type 2, hypertension, dyslipidemia, mitral valve insufficiency, chronic diastolic heart failure. We have been asked to evaluate the patient for CHF. Patient states that she came into the hospital due to shortness of breath with breathing is a little bit better now. Patient is seen in the ER on BiPAP. She denies having any chest pain, no dizziness, no palpitations. She has no lower extremity edema. She denies having any wheezing at home. No nausea or vomiting. No blood in her stools. Patient had a recent hospitalization in January at which time she was seen by cardiology for acute on chronic heart failure with preserved EF. Patient is seen today in the emergency center waiting for a bed on the cardiac stepdown unit. She has been started on IV Lasix 60 mg every 8 hours. EKG sinus rhythm at 64 bpm left anterior fascicular block. Chest x-ray: Pulmonary vascular is engorged with bilateral perihilar and bibasilar increased densities consistent with pulmonary edema or pneumonia. C ardiac silhouette is moderately enlarged.. WBC 17.3, hemoglobin 11.5, platelet count 141. Sodium 132, potassium 4.7, BUN 83 creatinine 3.19. Lactic acid initially 2.3 and repeat 1.6. proBNP 7940 Home cardiac medications: atorvastatin 20 mg daily, Coreg 12.5 mg twice daily, Farxiga 10 mg daily, Lasix 40 mg twice daily, hydralazine 50 mg twice daily, Procardia XL 90 mg daily, potassium chloride 40 mill equivalents twice daily. Echocardiogram performed 10/09/2023 reveals normal LV function. Severe pulmonary hypertension. Moderate to severe mitral regurgitation. Moderate to severe tricuspid regurgitation. 03/16 Patient is seen today in follow-up and she remains in the emergency center waiting for a bed on the cardiac stepdown unit. She has been maintained on IV Lasix 60 mg every 6 hours. She states she slept well last night. Her breathing is better and overall feels better today. Blood pressure 126/71, heart rate 72, pulse ox 92% on 3 L nasal cannula. Repeat blood work reveals WBC 20, hemoglobin 12.7. BUN 92, creatinine 3.13. Potassium 4.1. 03/17 Patient's renal function is improved today but according to patient's daughter, patient had more confusion during the night and this morning. Blood pressure has recovered and now 155/81, heart rate 79, pulse ox 98% on 3 L nasal cannula. Repeat blood work reveals WBC 20.6, hemoglobin 13.2. Sodium 139, potassium 3.5, BUN 81 creatinine 2.03. Patient is followed by nephrology as well. 03/19 Patient states that she is feeling better today, breathing is better as well. She states she slept well during the night. She denies any lower extremity edema. She states her appetite is good and she ate all of her breakfast. Blood pressure readings remain elevated. Yesterday, we discontinued midodrine and started patient back on Coreg 3.125 mg twice daily. Blood pressure 161/83, heart rate 77, pulse ox 94% on 3 L nasal cannula. Repeat blood work reveals hemoglobin 13.5. Potassium 3.3 and will be replaced, BUN 62 creatinine 1.52. Physical examination: Gen: This is a 88-year-old female in no respiratory distress VS: reviewed LUNGS: Reveals crackles to the bilateral one third of the lower lungs. HEART: Regular rate and rhythm. Holosystolic murmur at the apex. ABDOMEN: Soft No tenderness. EXTREMITIES: Trace bilateral lower extremity edema. No calf tenderness. NEUROLOGICAL: Patient is awake, alert and oriented x3. Assessment: Acute on chronic diastolic heart failure Acute kidney injury Hypertension, hypotension on presentation has resolved Dyslipidemia Diabetes mellitus type 2 Moderate to severe mitral regurgitation Severe pulmonary hypertension Plan: Continue patient's home cardiac medications Continue Lasix oral 40 mg twice daily Continue patient on Farxiga 10 mg daily Increase Coreg 6.25 mg twice daily Patient is cleared for discharge from cardiology and may follow-up in the office with Dr. Padilla in 1 week. Nurse practitioner note has been reviewed, I agree with documented findings and plan of care. Patient was seen and examined. Objective - Vital Signs Vital signs: Vital Signs Temp 97.9 F 03/18/24 08:00 Pulse 78 03/18/24 08:48 Resp 20 03/18/24 08:00 BP 170/77 03/18/24 08:00 Pulse Ox 99 03/18/24 08:42 FiO2 40 03/16/24 00:16 Intake & Output 03/17/24 03/18/24 03/18/24 18:59 06:59 18:59 Intake Total 480 Output Total 1100 1000 Balance -620 -1000 Intake: Oral 480 Output: Urine 1100 1000 Other: Voiding Method External Catheter External Catheter External Catheter # Voids 1 # Bowel Movements 1 1 - Labs CBC & Chem 7: 03/18/24 08:18 03/18/24 08:18 Labs: Abnormal Lab Results - Last 24 Hours (Table) 03/17/24 03/17/24 03/17/24 Range/Units 07:38 07:55 16:33 WBC 20.6 H (3.8-10.6) k/uL Neutrophils # 18.5 H (1.3-7.7) k/uL Lymphocytes # 0.6 L (1.0-4.8) k/uL Monocytes # 1.1 H (0-1.0) k/uL Chloride 97 L (98-107) mmol/L Carbon Dioxide 31 H (22-30) mmol/L BUN 81 H (7-17) mg/dL Creatinine 2.03 H (0.52-1.04) mg/dL Glucose 73 L (74-99) mg/dL POC Glucose (mg/dL) 181 H (70-110) mg/dL 03/17/24 Range/Units 20:14 WBC (3.8-10.6) k/uL Neutrophils # (1.3-7.7) k/uL Lymphocytes # (1.0-4.8) k/uL Monocytes # (0-1.0) k/uL Chloride (98-107) mmol/L Carbon Dioxide (22-30) mmol/L BUN (7-17) mg/dL Creatinine (0.52-1.04) mg/dL Glucose (74-99) mg/dL POC Glucose (mg/dL) 133 H (70-110) mg/dL Microbiology - Last 24 Hours (Table) 03/15/24 01:20 Blood Culture - Preliminary Blood 03/15/24 01:05 Blood Culture - Preliminary Blood
[2024-03-18] MEDS: POTASSIUM CHLORIDE ER 20 MEQ TAB.ER PO STA (11:11)
[2024-03-18 11:26] VITALS: RESP 18
--- NOTE | 2024-03-18 11:26 | P.PN ---
Subjective Patient is seen in follow-up for acute kidney injury on chronic kidney disease. On oral Lasix. Renal function improved. On nasal cannula. Hemodynamically stable. Resting in bed. Vital signs are stable. General: No acute distress. HEENT: Head exam is unremarkable. On nasal cannula. LUNGS: No audible rhonchi or wheezes. HEART: Rate and Rhythm are regular. ABDOMEN: Nontender. EXTREMITITES: No edema. Objective - Vital Signs Vital signs: Vital Signs Temp 97.9 F 03/18/24 08:00 Pulse 78 03/18/24 08:48 Resp 20 03/18/24 08:00 BP 170/77 03/18/24 08:00 Pulse Ox 99 03/18/24 08:42 FiO2 40 03/16/24 00:16 Intake & Output 03/17/24 03/18/24 03/18/24 18:59 06:59 18:59 Intake Total 480 Output Total 1100 1000 Balance -620 -1000 Intake: Oral 480 Output: Urine 1100 1000 Other: Voiding Method External Catheter External Catheter External Catheter # Voids 1 # Bowel Movements 1 1 - Labs CBC & Chem 7: 03/18/24 08:18 03/18/24 08:18 Labs: Abnormal Lab Results - Last 24 Hours (Table) 03/17/24 03/17/24 03/18/24 Range/Units 16:33 20:14 08:18 MCHC (31.0-37.0) g/dL Neutrophils # (1.3-7.7) k/uL Lymphocytes # (1.0-4.8) k/uL Potassium 3.3 L (3.5-5.1) mmol/L Carbon Dioxide 32 H (22-30) mmol/L BUN 62 H (7-17) mg/dL Creatinine 1.52 H (0.52-1.04) mg/dL Glucose 113 H (74-99) mg/dL POC Glucose (mg/dL) 181 H 133 H (70-110) mg/dL 03/18/24 Range/Units 08:18 MCHC 30.8 L (31.0-37.0) g/dL Neutrophils # 8.6 H (1.3-7.7) k/uL Lymphocytes # 0.7 L (1.0-4.8) k/uL Potassium (3.5-5.1) mmol/L Carbon Dioxide (22-30) mmol/L BUN (7-17) mg/dL Creatinine (0.52-1.04) mg/dL Glucose (74-99) mg/dL POC Glucose (mg/dL) (70-110) mg/dL Microbiology - Last 24 Hours (Table) 03/15/24 01:20 Blood Culture - Preliminary Blood 03/15/24 01:05 Blood Culture - Preliminary Blood Assessment and Plan Plan: Assessment: 1. Acute kidney injury secondary to ATN secondary to cardiorenal syndrome and hypotension. Renal function improved. Creatinine 1.5 to today. Kidney ultrasound from November 2023 showed atrophic kidneys without hydronephrosis. UA from January 2024 showed no proteinuria. UA from this admission also fairly benign. 2. Chronic kidney disease stage IIIa with baseline creatinine 1.2-1.3. 3. Acute on chronic diastolic CHF with moderate to severe mitral regurgitation and severe pulmonary hypertension. 4. Volume overload. Improved with diuresis. 5. Acute hypoxic respiratory failure. 6. Diabetes mellitus. 7. COPD exacerbation. 8. Metabolic acidosis secondary to acute kidney injury. Resolved. 9. Hypervolemic hyponatremia. Improved. 10. Hypokalemia from diuresis. Plan: Maintain oral Lasix. Also on SGLT2 inhibitor. Okay to continue as GFR above 20 now. Avoid nephrotoxins. Midodrine discontinued as blood pressure on the higher side now. Replace potassium. Coreg started today. Continue to monitor renal function and urine output. Maintain low-salt diet. Maintain 1500 cc fluid restriction.
[2024-03-18 11:38] LABS: Glucose,Whole Blood 144 mg/dL (70-110)
--- NOTE | 2024-03-18 11:42 | P.DS ---
Providers Date of admission: 03/14/24 23:58 Expected date of discharge: 03/18/24 Attending physician: Jono Aranda MD Consults: 03/14/24 23:54 Consult Physician Routine Consulting Provider: Vi Garvey Consult Reason/Comments: copd, hypoxic resp failure, bipap Do you want consulting provider notified?: Yes 03/15/24 00:01 Consult Physician Routine Consulting Provider: [facility] Consult Reason/Comments: chf Do you want consulting provider notified?: Yes 03/15/24 08:02 Consult Physician Routine Consulting Provider: Evelio Martin Consult Reason/Comments: yara Do you want consulting provider notified?: Yes Primary care physician: Brianne Herrera Hospital Course: Discharge Diagnosis: Acute on chronic diastolic CHF exacerbation YARA on CKD stage III Acute hypoxic respiratory failure Hypervolemia Hypertension Type 2 diabetes Hyperglycemia Metabolic acidosis Lactic acidosis Dyslipidemia GERD Restless leg syndrome Neuropathy Hospital Course: 88-year-old female with history of chronic diastolic heart failure, moderate to severe mitral regurgitation, severe pulmonary hypertension, hypertension, insulin-dependent diabetes, chronic kidney disease stage III, dyslipidemia presenting with shortness of breath. On presentation, patient was hypothermic, tachypneic, slightly hypotensive and hypoxic on room air. Was initially started on BiPAP. Was given IV Lasix, found to have worsening renal function as well. Pulmonology, cardiology and nephrology consulted. He was given IV antibiotics empirically in the ED. respiratory function improved with IV Lasix. Patient now on oral Lasix. Renal function also improved with diuretics. Blood pressure was initially lower, patient was started on midodrine. Blood pressure has improved, and now she is a little hypertensive. Resumed low-dose Coreg, and nifedipine XL, would benefit from outpatient follow-up with PCP, cardiology, nephrology and further adjust her blood pressure medications. Renal function is improving. Patient was recommended to go to rehab by PT, however she has home care and family is willing to provide extra care at home. Patient seen and examined at bedside. Vital signs reviewed and stable. General: Nontoxic, no distress, appears at stated age Derm: Warm, dry Head: Atraumatic, normocephalic, symmetric Eyes: EOMI, no lid lag, anicteric sclera Mouth: No lip lesion, mucus membranes moist Cardiovascular: S1S2 reg, no murmur Lungs: Bilateral rales, no accessory muscle use, supplemental oxygen Abdominal: Soft, nontender to palpation, no guarding, no appreciable o rganomegaly Ext: No gross muscle atrophy, no edema, no contractures Neuro: CN II-XI grossly intact, no focal neuro deficits Psych: Alert, oriented, appropriate affect A total of 35 minutes of time were spent preparing this complex discharge summary. Patient was discharged on 03/18/2024 at 1105. Patient Condition at Discharge: Stable Plan - Discharge Summary New Discharge Prescriptions: New carvediloL [Coreg] 6.25 mg PO BID-W/MEALS #60 tab Continue Ergocalciferol (Vitamin D2) [Drisdol (50,000 Iu)] 1,250 mcg PO APPIAH rOPINIRole HCL [Requip] 4 mg PO BID Albuterol Sulfate [Albuterol Sulfate Hfa] 2 puff INHALATION RT-Q6H Insulin Lispro [Insulin Lispro Kwikpen U-100] See Protocol SQ AC-TID Furosemide [Lasix] 40 mg PO BID@0800,1600 Potassium Chloride ER [K-Dur 20] 40 meq PO BID tab Omeprazole 20 mg PO DAILY Atorvastatin [Lipitor] 20 mg PO DAILY Collagenase [Santyl Ointment] 1 applic TOPICAL DAILY each Ipratropium-Albuterol Nebulize [Duoneb 0.5 mg-3 mg/3 ml Soln] 3 ml INHALATION RT-BID Insulin Glargine-Yfgn 8 units SQ HS Dapagliflozin Propanediol [Farxiga] 10 mg PO DAILY #30 tab NIFEdipine XL [Procardia XL] 90 mg PO DAILY #30 tab Cephalexin [Keflex] 500 mg PO BID Changed DULoxetine HCL [Cymbalta] 60 mg PO DAILY #0 Discontinued hydrALAZINE HCL [Apresoline] 50 mg PO BID #60 tab carvediloL [Coreg*] 12.5 mg PO BID-W/MEALS #60 tab glipiZIDE [Glucotrol] 5 mg PO AC-BRKFST Discharge Medication List Ergocalciferol (Vitamin D2) [Drisdol (50,000 Iu)] 1,250 mcg PO APPIAH 10/08/23 [History] Potassium Chloride ER [K-Dur 20] 40 meq PO BID tab 10/19/23 [Rx] Albuterol Sulfate [Albuterol Sulfate Hfa] 2 puff INHALATION RT-Q6H 11/02/23 [History] Atorvastatin [Lipitor] 20 mg PO DAILY 11/02/23 [History] Omeprazole 20 mg PO DAILY 11/02/23 [History] rOPINIRole HCL [Requip] 4 mg PO BID 11/02/23 [History] Collagenase [Santyl Ointment] 1 applic TOPICAL DAILY each 11/06/23 [Rx] Furosemide [Lasix] 40 mg PO BID@0800,1600 11/26/23 [History] Insulin Lispro [Insulin Lispro Kwikpen U-100] See Protocol SQ AC-TID 11/26/23 [History] Ipratropium-Albuterol Nebulize [Duoneb 0.5 mg-3 mg/3 ml Soln] 3 ml INHALATION RT-BID 11/26/23 [History] Insulin Glargine-Yfgn 8 units SQ HS 01/23/24 [History] Dapagliflozin Propanediol [Farxiga] 10 mg PO DAILY #30 tab 02/08/24 [Rx] NIFEdipine XL [Procardia XL] 90 mg PO DAILY #30 tab 02/08/24 [Rx] Cephalexin [Keflex] 500 mg PO BID 03/15/24 [History] DULoxetine HCL [Cymbalta] 60 mg PO DAILY #0 03/18/24 [Rx] carvediloL [Coreg] 6.25 mg PO BID-W/MEALS #60 tab 03/18/24 [Rx] Follow up Appointment(s)/Referral(s): Brianne Herrera MD [Primary Care Provider] - 04/04/24 1:00 pm Alejandro Padilla MD [STAFF PHYSICIAN] - [facility] Week [facility] [NON-STAFF] - Evelio Martin DO [STAFF PHYSICIAN] - 1 Week Patient Instructions/Handouts: Heart Failure (DC), Acute Kidney Injury (DC) Activity/Diet/Wound Care/Special Instructions: Please see PCP, nephrology and cardiology. You may need your other blood pressure increased and added as outpatient. Discharge Disposition: HOME WITH HOME HEALTH SERVICES
--- NOTE | 2024-03-18 12:37 | P.PN ---
Subjective Progress Note Date: 03/18/24 Principal diagnosis: Acute on chronic hypoxic respiratory failure secondary to acute exacerbation of diastolic congestive heart failure Patient is an 88-year-old female with past medical history significant for congestive heart failure, chronic hypoxemic respiratory failure, diabetes mellitus, chronic kidney disease, hypertension, hyperlipidemia, and previous right-sided hip fracture. Of note, patient has had multiple hospitalizations for exacerbation of heart failure so far this year. Most recent echocardiogram taken 10/17/2023 estimates a preserved left ventricular ejection fraction of 55 to 60% with significant valvular heart disease including moderate to severe mitr al regurgitation, moderate to severe tricuspid regurgitation, and severe pulmonary hypertension. Most recently, hospitalized from 01/23/2024 through 02/08/2024 for similar presentation. She was diuresed with Lasix, and eventually discharged home with home health care. Patient is currently at home l iving with her daughter, who is at bedside, and provides most of the information. Over the last 2 days, her daughter noticed her mother to be more short of breath than normal and also intermittently confused at times. There has been a minimal nonproductive cough. Denies fevers, sputum production, chest pain. No nausea, vomiting, diarrhea. Admits reduced oral intake. No known recent sick contacts. Patient's lower extremity swelling is persistent but reportedly slightly improved. Denies missing any doses of Lasix while at home. During the night, pulse oximeter was reading low at home, and her daughter called EMS. When EMS arrived, the patient was noted to be in respiratory distress. SpO2 was reading 70 to 80% on 5 L nasal cannula. She is normally on 2 to 3 L chronically at home. Patient denies history of COPD/asthma. On arrival to the emergency room, patient was placed on BiPAP, current settings are 12/5 and FiO2 of 40%. On my evaluation, the patient appears comfortable. Respi ratory rate is in the mid 20s, and she is generating tidal volumes of around 500. VBG has a pCO2 of 37 and pH of 7.45. She is currently alert and oriented. SpO2 is 95%. Blood pressure was borderline on admission, and she was fluid resuscitated with 2 L of normal saline. Most recent reading 91/58 mmHg. Not requiring any vasopressors. Normal saline infusing at 50 MLS per hour. Chest x-ray taken on arrival shows cardiomegaly, increased pulmonary vascular congestion, as well as bilateral perihilar and bibasilar increased densities consistent with pulmonary edema or pneumonia. CBC: WBC count 22.3, hemoglobin 12.8, hematocrit 40.6, platelets 158. BMP: Sodium 131, potassium 4.7, chloride 95, serum bicarb 23, BUN of 84, creatinine 3.15, glucose 219. Lactic acid was 2.3 and is down to 1.6. LFTs mildly elevated. EKG shows normal sinus rhythm with a left anterior vascular block and left axis deviation. Previously, demonstrated Q wave changes in the anterior leads. NT proBNP 7940. Negative for influenza, RSV, COVID. Patient is currently afebrile. Empirically covered on a combination of azithromycin and Rocephin. Respiratory status is labile. Patient was seen and evaluated today on 03/16/2024, patient remains in the ER waiting for a bed on the floor, patient is now on nasal cannula, off BiPAP, apparently responded well to diuretics over the last 24 hours. Has been receivi ng Lasix at 60 mg IV push every 8 hours. Chest x-ray is improving, clinically the patient is improving, feeling much better and breathing a lot easier. Labs today showed leukocytosis with WBC count of 20.1 hemoglobin 12.7 electrolytes are normal BUN is 92 creatinine is 3.13, slightly improved compared to yesterday in spite of diuretics. Procalcitonin level is 1.69, patient remains empirically on antibiotics Reevaluated today on 03/17/2024, patient is now on the cardiac floor, doing well, she is on 3 L nasal cannula O2 saturation 98%, significant clinical improvement noted since admission. Patient is improving steadily. Follow-up chest x-ray will be done tomorrow. Remains on diuretics antibiotics, her WBC count is 20.6 hemoglobin 13.2 basic metabolic profile is normal BUN is 81 creatinine is down to 2.03, steadily improving in spite of diuretics her Lasix dose was changed to 40 mg p.o. twice daily, patient remains on Keflex and she remains on bronchodilators in the form of DuoNeb updrafts 4 times daily and as needed. Reevaluated today on 03/18/2024, patient is doing great, feels much better today compared to the time when she came in. On 2 L nasal cannula, O2 sats of 97%, patient is significantly better. WBC count is normal basic metabolic profile is normal BUN is 62 creatinine 1.52, steadily improved compared to creatinine of 3.15 on admission. Objective - Vital Signs Vital signs: Vital Signs Temp 97.9 F 03/18/24 08:00 Pulse 75 03/18/24 12:11 Resp 18 03/18/24 11:24 BP 167/88 03/18/24 11:24 Pulse Ox 97 03/18/24 11:24 FiO2 40 03/16/24 00:16 Intake & Output 03/17/24 03/18/24 03/18/24 18:59 06:59 18:59 Intake Total 480 118 Output Total 1100 1000 Balance -620 -1000 118 Intake: Oral 480 118 Output: Urine 1100 1000 Other: Voiding Method External Catheter External Catheter External Catheter # Voids 1 2 # Bowel Movements 1 1 2 - Exam GENERAL EXAM: Revealed 88-year-old female, On 2 L nasal cannula, not in distress HEAD: Normocephalic and atraumatic EYES: Normal reaction of pupils, equal size. NOSE: Clear with pink turbinates. THROAT: No erythema or exudates. NECK: No masses, no JVD. CHEST: No chest wall deformity. LUNGS: Fine crackles persist at the bases CVS: S1 and S2 normal with no audible murmur, regular rhythm. No extra heart sounds ABDOMEN: Soft nontender no megaly no rebound no guarding SKIN: No rashes CENTRAL NERVOUS SYSTEM: Alert and oriented x 3 no gross focal deficit EXTREMITIES: No clubbing edema or cyanosis - Labs CBC & Chem 7: 03/18/24 08:18 03/18/24 08:18 Labs: Abnormal Lab Results - Last 24 Hours (Table) 03/17/24 03/17/24 03/18/24 Range/Units 16:33 20:14 08:18 MCHC (31.0-37.0) g/dL Neutrophils # (1.3-7.7) k/uL Lymphocytes # (1.0-4.8) k/uL Potassium 3.3 L (3.5-5.1) mmol/L Carbon Dioxide 32 H (22-30) mmol/L BUN 62 H (7-17) mg/dL Creatinine 1.52 H (0.52-1.04) mg/dL Glucose 113 H (74-99) mg/dL POC Glucose (mg/dL) 181 H 133 H (70-110) mg/dL 03/18/24 03/18/24 Range/Units 08:18 11:37 MCHC 30.8 L (31.0-37.0) g/dL Neutrophils # 8.6 H (1.3-7.7) k/uL Lymphocytes # 0.7 L (1.0-4.8) k/uL Potassium (3.5-5.1) mmol/L Carbon Dioxide (22-30) mmol/L BUN (7-17) mg/dL Creatinine (0.52-1.04) mg/dL Glucose (74-99) mg/dL POC Glucose (mg/dL) 144 H (70-110) mg/dL Microbiology - Last 24 Hours (Table) 03/15/24 01:20 Blood Culture - Preliminary Blood 03/15/24 01:05 Blood Culture - Preliminary Blood Assessment and Plan Assessment: Impression: Acute on chronic hypoxemic respiratory failure, likely secondary to exacerbation of diastolic congestive heart failure, Possible superimposed community-acquired pneumonia, patient has elevated procalcitonin level, empirically on antibiotics. Although the clinical presentation is mostly a presentation of congestive heart failure. And considering the improvement with diuretics, this is more of a presentation of CHF unless proven otherwise. Chronic diastolic heart failure and valvular heart disease with moderate to severe mitral regurgitation, severe tricuspid regurgitation with secondary pulmonary hypertension. Left ventricular ejection fraction was estimated at 55 to 60% on most recent echocardiogram. 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
[2024-03-18] MEDS: carvediloL 6.25 MG TAB PO SCH (15:05)
[2024-03-18 15:41] VITALS: BP 146/73; TEMP 97.7
[2024-03-18 15:56] VITALS: PULSE 80
[2024-03-18 16:23] LABS: Glucose,Whole Blood 309 mg/dL (70-110)
[2024-03-18] MEDS ORDERED: CEPHALEXIN 500 MG CAP PO SCH (21:00)
--- NOTE | 2024-03-21 23:58 | CDI ---
Documentation Clarification Form Date: 03/21/2024 11:44:44 PM From: Aimee Andrade Phone: Admit Date: 03/14/2024 11:58:00 PM Patient Name: Sherry Bernabe Visit Number: [id number] Discharge Date: 03/18/2024 05:29:00 PM ATTENTION: The Clinical Documentation Specialists (CDI) and [facility] Coding Staff appreciate your assistance in clarifying documentation. Please respond to the clarification below the line at the bottom and electronically sign. The CDI & [facility] Coding staff will review the response and follow-up if needed. Please note: Queries are made part of the Legal Health Record. If you have any questions, please contact the author of this message via ITS. Dr. Jono Aranda Your patient has Sinus bradycardia, hypothermic, tachypneic, slightlyhypotensiveandhypoxic per ED Note. Based on this information and the findings below, is there an additional diagnosis that is clinically appropriate for this patient? Patient history/risk factors: 88yo F, ACHRF, ATNonCKD stage IIIa, hypervolemia, HTN, DMII w hyperglycemia & neuropathy, metabolic acidosis, lactic acidosis, HLD, GERD, RLS Clinical Indicators: WBC: 22. 3 Plasma LacticAcidVen: 2. 3 Blood cultures: no growth Vitals signs: T 96. 9 F SD 63 64 R 28 BP88/58 O2 Sat 99 Treatment: Continue antibiotics check cultures. Was initially started onBiPAP. Was given IV Lasix, found to have worsening renal function as well. Pulmonology, cardiology and nephrology consulted. He was given IV antibiotics empirically in the ED. Respiratory function improved with IV Lasix. Is there an additional diagnosis that is clinically appropriate for this patient? [ ] Sepsis [ ] SIRS, without underlying infectious process [ ] No additional diagnosis/Not clinically significant [ ] Unable to determine [ ] Other, please specify (Template Last Reviewed: October 2022) MTDD
--- NOTE | 2024-04-04 18:19 | CDI ---
Documentation Clarification Form Date: 04/04/2024 06:16:37 PM From: Aimee Andrade Phone: Admit Date: 03/14/2024 11:58:00 PM Patient Name: Sherry Bernabe Visit Number: [id number] Discharge Date: 03/18/2024 05:29:00 PM ATTENTION: The Clinical Documentation Specialists (CDI) and [facility] Coding Staff appreciate your assistance in clarifying documentation. Please respond to the clarification below the line at the bottom and electronically sign. The CDI & [facility] Coding staff will review the response and follow-up if needed. Please note: Queries are made part of the Legal Health Record. If you have any questions, please contact the author of this message via ITS. Dr. Jono Aranda Thank you for acknowledging the previous query; however, it lacked a response. Your patient hasSinus bradycardia,hypothermic,tachypneic, slightlyhypotensiveandhypoxicper ED Note.Based on this information and the findings below, is there an additional diagnosis that is clinically appropriate for this patient? Patient history/risk factors: 88yo F, ACHRF,hypervolemia,HTN,DMIIwhyperglycemianeuropathy,ATNonCKDstage IIIa, metabolic acidosis,lactic acidosis,HLD,GERD,RLS Clinical Indicators: WBC: 22. 3 Plasma LacticAcidVen: 2. 3 Blood cultures: no growth Vitals signs: T 96. 9 F LA 63 64 R 28 BP88/58 O2 Sat 99 Treatment: Continue antibiotics check cultures. Was initially started onBiPAP.Was given IV Lasix, found to have worsening renal function as well. Pulmonology, cardiology and nephrology consulted. He was given IV antibiotics empirically in the ED. Respiratory function improved with IV Lasix. Is there an additional diagnosis that is clinically appropriate for this patient? [ ]Sepsis [ ]SIRS, without underlying infectious process [ ] No additional diagnosis/Not clinically significant [ ] Unable to determine [ ] Other, please specify (Template Last Reviewed: October 2022) SANJAY
== END 2024-03-18 17:29 | disposition home health service (06) | DRG 291 ==
LOC: EC 22:32 → 3SCARD 23:58
PROVIDERS: ADMIT Internal Medicine; ATTEND Internal Medicine
PROC: 5A09357 Assistance with Respiratory Ventilation, Less than 24 Consecutive Hours, Continuous Positive Airway Pressure (ICD-10-PCS; principal; 2024-03-15)
DX: I13.0 Hypertensive heart and chronic kidney disease with heart failure and stage 1 through stage 4 chronic kidney disease, or unspecified chronic kidney disease (principal); I50.33 Acute on chronic diastolic (congestive) heart failure; J96.21 Acute and chronic respiratory failure with hypoxia; N17.0 Acute kidney failure with tubular necrosis; J18.9 Pneumonia, unspecified organism; J44.1 Chronic obstructive pulmonary disease with (acute) exacerbation; J44.0 Chronic obstructive pulmonary disease with (acute) lower respiratory infection; R65.10 Systemic inflammatory response syndrome (SIRS) of non-infectious origin without acute organ dysfunction; E87.20 Acidosis, unspecified; E87.1 Hypo-osmolality and hyponatremia; I27.22 Pulmonary hypertension due to left heart disease; E11.40 Type 2 diabetes mellitus with diabetic neuropathy, unspecified; E11.22 Type 2 diabetes mellitus with diabetic chronic kidney disease; N18.31 Chronic kidney disease, stage 3a; E11.65 Type 2 diabetes mellitus with hyperglycemia; Z79.4 Long term (current) use of insulin; Z66 Do not resuscitate; E86.0 Dehydration; G25.81 Restless legs syndrome; I95.9 Hypotension, unspecified; I08.1 Rheumatic disorders of both mitral and tricuspid valves; D72.828 Other elevated white blood cell count; E78.5 Hyperlipidemia, unspecified; K21.9 Gastro-esophageal reflux disease without esophagitis; E87.6 Hypokalemia; T50.2X5A Adverse effect of carbonic-anhydrase inhibitors, benzothiadiazides and other diuretics, initial encounter; I44.4 Left anterior fascicular block; R00.1 Bradycardia, unspecified; R68.0 Hypothermia, not associated with low environmental temperature; Z11.52 Encounter for screening for COVID-19; Z87.81 Personal history of (healed) traumatic fracture; Z79.51 Long term (current) use of inhaled steroids; Z79.84 Long term (current) use of oral hypoglycemic drugs; Z79.82 Long term (current) use of aspirin; Z79.899 Other long term (current) drug therapy; Z86.14 Personal history of Methicillin resistant Staphylococcus aureus infection; Z86.19 Personal history of other infectious and parasitic diseases; Z91.81 History of falling
CPT/HCPCS: 36415; 71045; 80048; 80053; 81001; 82803; 83605; 83735; 83880; 84145; 85025; 85027; 85610; 85730; 87040; 87449; 87636; 93005; 94640; 94660; 94760; 96365; 96366; 96367; 96372; 96375; 96376; 99291

== ENCOUNTER → 2024-04-22 | Outpatient (CLI) | payer MEDICARE, BC ==
[2024-04-22 16:49] LABS: African American GFR (CKD) 24 (>60 ml/min/1.73 sqM); Blood Urea Nitrogen 57 mg/dL (7-17); Non-African American GFR(CKD) 21 (>60 ml/min/1.73 sqM)
== END | disposition home or self-care (01) ==
LOC: RADCTMAIN 15:55
PROVIDERS: ATTEND Registered Nurse
DX: R07.1 Chest pain on breathing (principal); E78.41 Elevated Lipoprotein(a); R06.02 Shortness of breath
CPT/HCPCS: 82565; 84520